=== PATIENT | male | born 1960 | race Caucasian/White ===

== ENCOUNTER 2025-04-26 14:40 | Emergency (ER) | payer OTHER, SELFPAY ==
[2025-04-26 14:41] VITALS: BP 117/70; PULSE 77; RESP 16; TEMP 36.3; O2SAT 100; BMI 29.2
[2025-04-26] MEDS: 0.9% Normal Saline (1000mL) 1,000 ML 999 ML IV (16:14)
[2025-04-26 16:21] LABS: Hematocrit 36.3 % (40-54); Hemoglobin 12.7 g/dL (13.0-16.5); Immature Granulocytes Count 0.030 X10^3/uL (0.0-0.0); Mean Corp Hgb Conc 35.0 g/dL (32-36); Mean Corpuscular Volume 91.7 fL (80-94); Mean Platelet Vol. 9.8 fl (6.2-12.0); NRBC Flagged by Analyzer 0 % (0-5); Platelet Count 156 K/mm3 (150-450); RBC Distribution Width CV 12.0 % (11.6-14.6); RBC Distribution Width SD 40.4 fl (35.1-43.9); Red Blood Count 3.96 M/mm3 (4.6-6.2); White Blood Count 7.8 K/mm3 (4.4-11.0)
--- NOTE | 2025-04-26 16:21 | RAD_ITS ---
PROCEDURE: CHEST PA AND LATERAL 04/26/2025 REASON FOR EXAM: SOB TECHNIQUE: CHEST PA AND LATERAL COMPARISON: None. FINDINGS: Devices: Left chest wall multilead ICD, appears appropriately positioned. Lungs/Pleura: Mild pulmonary vascular congestion and evidence of interstitial edema. No pleural effusion. No focal airspace consolidation. No pneumothorax. Heart/Mediastinum: Mild cardiomegaly. Calcification of the aortic arch. Bones/Soft tissues: Mild degenerative changes of the spine and bilateral AC joints. RAD/Chest PA and Lateral IMPRESSION: Mild cardiomegaly with vascular congestion and probable interstitial edema. No focal airspace consolidation, or pleural effusion. Reading Location: [id number]
[2025-04-26 16:25] LABS: Squamous Epithelial Cells - UA 0 SEEN /hpf (0-5)
--- NOTE | 2025-04-26 16:26 | EX.ED.DYSGE1 ---
HPI History of Present Illness Chief Complaint: General Illness Narrative Narrative: Patient is a 64-year-old male with past medical history of CAD, CHF, recent pacemaker placement in May, cardiomyopathy, hypertension who presents to the emergency department with a chief complaint of generalized weakness, shortness of breath with exertion, abdominal pain and diarrhea. Patient states that he has not been feeling well for the last several days and notes that he is getting worsening shortness of breath with exertion. Patient family bedside states they wanted him further evaluated since he was seem to be worsening. [facility] Medical History H pylori ulcer Rectal polyp Rectal bleeding GERD (gastroesophageal reflux disease) HTN (hypertension) Hypertriglyceridemia Hernia CAD (coronary atherosclerotic disease) Palpitation Cardiomyopathy LBBB (left bundle branch block) Pacemaker Home Medications ?Medication ?Instructions ?Recorded ?Last Taken ?Type ondansetron 4 mg disintegrating 4 mg PO Q6H PRN nausea and 04/26/25 Unknown Rx tablet vomiting #20 tabs Allergy/AdvReac Type Severity Reaction Status Date / Time No Known Allergies Allergy Verified 04/26/25 14:43 Surgical History Previous back surgery Social History Smoking Status: Never smoker ROS ROS ED ROS Narrative Constitutional: Denies any fevers, chills, headaches Eyes: Denies double vision Cardiovascular: Denies chest pain Respiratory: Complains of shortness of breath as noted above as well as a cough Abdomen: Complains of abdominal pain nausea vomiting as noted above as well as diarrhea denies dark tarry stools : Denies any urinary symptoms Neurological: Denies numbness, wheeze, tingling Musculoskeletal: Denies back pain Skin: Denies any rashes or lesions EXAM Physical Exam Narrative Exam Narrative: General: Patient was lying in bed rest comfortably did not appear to be acute distress Head: Atraumatic, normocephalic Eyes: PERRL bilaterally, EOMI by, no conjunctival injection noted Neck: Soft, supple, trachea midline Cardiovascular: Regular rate and rhythm no murmurs gallops rubs noted Respiratory: Clear to auscultation bilaterally Abdomen: Patient does have epigastric tenderness on exam no rebound or guarding on exam Extremities: +5/5 strength noted in the bilateral upper and lower extremities Neurological: Patient follow commands knew that he was at [facility] years 2024 Skin: Warm, dry, intact no rashes lesions noted Const Vital Signs: 04/26/25 14:41 04/26/25 15:50 04/26/25 16:20 Temperature 97.4 F L Temperature Source Oral Pulse Rate 77 Respiratory Rate 16 Respiratory Effort Short of Breath Blood Pressure 117/70 Blood Pressure Mean 85 Pulse Ox 100 Oxygen Delivery Method Room Air Room Air 04/26/25 16:40 04/26/25 18:00 04/26/25 20:00 Temperature Temperature Source Pulse Rate 67 63 64 Respiratory Rate 18 16 19 H Respiratory Effort Blood Pressure 119/69 Blood Pressure Mean 85 Pulse Ox 99 99 100 Oxygen Delivery Method Room Air Room Air MDM MDM MDM Narrative Medical decision making narrative: Patient is a 64-year-old male who presented to the emerged part with a chief complaint of dyspnea on exertion, abdominal pain nausea vomiting. On the differential diagnosis includes but not limited to CHF exacerbation, ACS, pneumonia, pancreatitis, cholecystitis, viral gastroenteritis. Once workup is obtained reviewed he will be reevaluated. Patient be given IV fluids morphine Zofran. Nursing notified me that he did refuse his morphine. Patient's CBC was reviewed and showed no evidence leukocytosis white blood count was 7.8, he was 12.7, platelet count of 156. Patient's sodium was 135, potassium normal 4.4, creatinine was elevated 1.35, AST and ALT were 27 and 35 respectively. Patient's troponin was 12 with a delta troponin of 11, EKG reviewed showed atrial sensed ventricular paced rhythm with a rate of 60 bpm no Sgarbossa criteria were met. Patient's proBNP normal less than 36, lipase normal at 47, urinalysis reviewed showed no evidence of infection. Patient chest x-ray reviewed by myself by radiology showed mild cardiomegaly with vascular congestion and probable interstitial edema no consolidation or pleural effusion noted. Patient CT abdomen pelvis IV contrast reviewed showed sigmoid colon wall thickening without significant adjacent inflammatory changes equivocal for acute uncomplicated sigmoid diverticulitis patient has no tenderness to palpation in this region therefore have low suspicion for this, borderline gastric wall thickening which may be due to underdistention or gastritis. Patient ambulated here in the emergency department had no tachycardia his oxygen level went down to 91% and he felt mildly short of breath. I added on a D-dimer which was reviewed and is normal at 0.33. I discussed these results with the patient and his daughter at bedside. With shared decision making it was decided that we will give him a dose of IV Lasix here in the emergency department and he will double his home Lasix dose. He does have an appointment on Wednesday with the heart failure clinic that he will follow-up with he states. He states that he is currently try to follow-up with Dr. Kenyon in the outpatient setting for repeat endoscopies as he does have a history of H. pylori in the past. Patient was hungry here in the emergency department and he did eat [employer] without any vomiting. Once again the patient with shared decision making would like to go home and his daughter at bedside is agreeable this plan all question concerns answered he is discharged home in stable condition. Lab Data Labs: Laboratory Results - last 24 hr 04/26/25 04/26/25 04/26/25 16:03 16:18 18:40 WBC 7.8 RBC 3.96 L Hgb 12.7 L Hct 36.3 L MCV 91.7 MCH 32.1 H MCHC 35.0 RDW Std Deviation 40.4 RDW Coeff of Roshni 12.0 Plt Count 156 MPV 9.8 Immature Gran % (Auto) 0.400 Neut % (Auto) 58.4 Lymph % (Auto) 27.4 Drew % (Auto) 9.9 Eos % (Auto) 2.5 Baso % (Auto) 1.4 H Absolute Neuts (auto) 4.5 Absolute Lymphs (auto) 2.12 Nucleated RBC % 0 D-Dimer Quant (PE/DVT) Sodium 135 Potassium 4.4 Chloride 102 Carbon Dioxide 21.8 Anion Gap 12 BUN 27 H Creatinine 1.35 H Estim Creat Clear Calc 60.52 Est GFR (MDRD) Non-Af 58 L BUN/Creatinine Ratio 19.6 Glucose 102 H Calcium 9.5 Total Bilirubin 0.43 AST 27 ALT 35 Alkaline Phosphatase 46 Troponin T High Sens 12 Troponin T Hi Sens 2 Hr 11 NT pro BNP II < 36 Total Protein 7.3 Albumin 4.3 Globulin 3.0 Albumin/Globulin Ratio 1.4 Lipase 47 Urine Color Yellow Urine Clarity Clear Urine pH 6.0 Ur Specific [place] 1.015 Urine Protein 30 H Urine Glucose (UA) Normal Urine Ketones Negative Urine Occult Blood Negative Urine Nitrite Negative Urine Bilirubin Negative Urine Urobilinogen 1 H Ur Leukocyte Esterase Negative Urine RBC 0-5 SEEN Urine WBC 0-5 SEEN Ur Squamous Epith Cells 0 SEEN Urine Bacteria 0 SEEN Urine Mucus RARE 04/26/25 19:55 WBC RBC Hgb Hct MCV MCH MCHC RDW Std Deviation RDW Coeff of [place] Plt Count MPV Immature Gran % (Auto) Neut % (Auto) Lymph % (Auto) Drew % (Auto) Eos % (Auto) Baso % (Auto) Absolute Neuts (auto) Absolute Lymphs (auto) Nucleated RBC % D-Dimer Quant (PE/DVT) 0.33 Sodium Potassium Chloride Carbon Dioxide Anion Gap BUN Creatinine Estim Creat Clear Calc Est GFR (MDRD) Non-Af BUN/Creatinine Ratio Glucose Calcium Total Bilirubin AST ALT Alkaline Phosphatase Troponin T High Sens Troponin T Hi Sens 2 Hr NT pro BNP II Total Protein Albumin Globulin Albumin/Globulin Ratio Lipase Urine Color Urine Clarity Urine pH Ur Specific [place] Urine Protein Urine Glucose (UA) Urine Ketones Urine Occult Blood Urine Nitrite Urine Bilirubin Urine Urobilinogen Ur Leukocyte Esterase Urine RBC Urine WBC Ur Squamous Epith Cells Urine Bacteria Urine Mucus Radiography Diagnostic Testing: Clinical Impression(s) from Imaging Studies Chest X-Ray 04/26/25 16:21 IMPRESSION: Mild cardiomegaly with vascular congestion and probable interstitial edema. No focal airspace consolidation, or pleural effusion. Reading Location: [facility] Abdomen/Pelvis CT 04/26/25 17:30 IMPRESSION: Sigmoid colon wall thickening without significant adjacent inflammatory changes equivocal for acute uncomplicated sigmoid diverticulitis. Borderline gastric wall thickening which may be due to underdistention or gastritis. Reading Location: [id number] Discharge Plan Triage Chief Complaint: General Illness ED Provider: iRgo Haile Dx/Rx/DC Orders Clinical Impression: Abdominal pain, History of CHF (congestive heart failure), History of Helicobacter pylori infection Prescriptions: New ondansetron 4 mg tablet,disintegrating 4 mg PO Q6H PRN (Reason: nausea and vomiting) Qty: 20 0RF Primary Care Provider: Care Physician,No Primary Referrals: Care Physician,No Primary [Primary Care Provider] - Aneudy Kenyon MD [Med Staff - Active Staff] - Activity Restrictions/Additional Instructions: Follow-up your appointment on Wednesday with the heart failure team increase your Lasix dose for the next few days. Return with worsening symptoms or any concerns. Use the Zofran as sent to your pharmacy as prescribed for nausea as needed. Print Language: Monegasque Disposition Disposition: Home, Self Care
[2025-04-26 16:35] LABS: Color, Urine Yellow (Yellow); Glucose, Dipstick Normal (Normal); Ketone-Dipstick Negative (Negative); Leukocyte Esterase-Dipstick Negative /ul (Negative); Nitrite-Dipstick Negative (Negative); Occult Blood-Urine Negative /ul (Negative); Protein-Dipstick 30 mg/dl (Negative); Specific Gravity, Urine 1.015 (1.002-1.030); Urine Bilirubin Dipstick Negative (Negative)
[2025-04-26 16:40] VITALS: PULSE 67; RESP 18; O2SAT 99
[2025-04-26 17:16] LABS: AST(SGOT) 27 U/L (<=37); Alanine Aminotransfer ALT/SGPT 35 U/L (<=46); Albumin, Serum 4.3 g/dL (3.4-4.8); Alkaline Phosphatase 46 U/L (40-129); Anion Gap 12 (5-15); BUN 27 mg/dL (4-19); BUN/Creat Ratio 19.6 RATIO (10-20); Calcium,Total 9.5 mg/dL (7.6-11.0); Carbon Dioxide 21.8 mmol/L (21.0-32.0); Chloride 102 mmol/L (98-108); Estimated Creatinine Clearance 60.52 ml/min (50-250); Globulin 3.0 g/dL (2.2-4.2); Glucose 102 mg/dL (70-99); Lipase 47 U/L (13-75); Potassium 4.4 mmol/L (3.3-5.1)
[2025-04-26 17:16] LABS: Mucous, Urine RARE /hpf (<or=2+); Red Blood Cells-Urine 0-5 SEEN /hpf (0-5)
--- NOTE | 2025-04-26 17:30 | CT_ITS ---
PROCEDURE: ABDOMEN/PELVIS W IV CONT ONLY 04/26/2025 REASON FOR EXAM: EPIGASTRIC PAIN, N/V TECHNIQUE: ABDOMEN/PELVIS W IV CONT ONLY Coronal and Sagittal reconstruction series were provided. CONTRAST: Isovue 370 VOLUME: 92 mL One or more dose reduction techniques were used (e.g., Automated exposure control, adjustment of the mA and/or kV according to patient size, use of iterative reconstruction technique. RADIATION DOSE SUMMARY: CTDlvol: 13.30+ 20.66 mGy DLP: 1157.52 mGycm COMPARISON: None. FINDINGS: The lung bases are clear. Coronary artery calcifications. The peripheral soft tissues are unremarkable. Degenerative changes of the spine. Moderate atherosclerosis. Normal caliber abdominal aorta. No suspicious lymphadenopathy. Hepatic subcentimeter hypodense lesions that are too small to characterize. The gallbladder, pancreas, spleen, adrenals are unremarkable. Symmetric enhancement of the bilateral kidneys. No hydroureteronephrosis. The urinary bladder is unremarkable. Borderline sigmoid colon wall thickening without adjacent inflammatory changes. Equivocal for acute uncomplicated diverticulitis. Borderline gastric wall thickening which may be due to underdistention or gastritis. CT/Abdomen/Pelvis W IV Cont ONLY IMPRESSION: Sigmoid colon wall thickening without significant adjacent inflammatory changes equivocal for acute uncomplicated sigmoid diverticulitis. Borderline gastric wall thickening which may be due to underdistention or gastr itis. Reading Location: [place] [id number]
[2025-04-26 17:43] LABS: Pro- Brain NATRIURETIC PEPTIDE < 36 pg/mL (<=900); Troponin T High Sensitivity 12 ng/L (<=22)
[2025-04-26 17:50] VITALS: O2SAT 98
[2025-04-26 18:00] VITALS: BP 119/69; PULSE 63; RESP 16; O2SAT 99
[2025-04-26 19:25] LABS: Troponin T High Sens 2 HR 11 ng/L (<=22)
[2025-04-26 20:00] VITALS: PULSE 64; RESP 19; O2SAT 100
[2025-04-26 20:32] LABS: D-Dimer Quantitative (DVT/PE) 0.33 FEU/ug/m (0.27-0.49)
[2025-04-26 21:41] VITALS: BP 122/71; PULSE 71; RESP 18; TEMP 36.8; O2SAT 99
== END 2025-04-26 21:44 | disposition home or self-care (01) ==
PROVIDERS: Emergency Provider Emergency Medicine; Referring Provider Emergency Medicine; Visit Provider Emergency Medicine
DX: R10.9 Unspecified abdominal pain (principal); R06.02 Shortness of breath; Z95.0 Presence of cardiac pacemaker; R11.2 Nausea with vomiting, unspecified; Z86.79 Personal history of other diseases of the circulatory system; Z86.19 Personal history of other infectious and parasitic diseases
CPT/HCPCS: 71046; 74177; 80053; 81001; 83690; 83880; 84484; 85025; 85379; 93005; 96361; 96374; 99284; Q9967; A4216; J1938; J2405

== ENCOUNTER 2025-05-25 07:47 | Day surgery (SDC) | payer MEDICARE, SELFPAY ==
--- NOTE | 2025-05-23 14:41 | PAT.ANE_ITS ---
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 When Was Last Pacemaker Check QUESTION #4 FULL TEXT: You/Your Family Experience fever (hyperthermia) with Anesthesia Last Oral Intake Last Oral intake: Last Oral Intake NPO since Meds taken in AM with sips of water? Meds patient instructed to take am of surgery PONV PONV - foreign exchange trader: PONV - foreign exchange trader Female No 05/23/25 11:01 HX of Motion Sickness No 05/23/25 11:01 HX of N/V After Surgery No 05/23/25 11:01 Non-Smoker Yes 05/23/25 11:01 Duration of Surgery greater No 05/23/25 11:01 than 60 minutes Number of Risk Factors 1 05/23/25 11:01 PONV Score Low Risk 05/23/25 11:01 Height & Weight Height & Weight: Anesthesia: Height & Weight Height 5 ft 9 in 04/30/25 08:43 Respiratory Assessment Respiratory Assessment - foreign exchange trader: Respiratory Tract Infection Hx - foreign exchange trader Hx Respiratory Tract Infection No 05/23/25 11:01 STOP Sleep Apnea STOP Sleep Apnea - foreign exchange trader: STOP Sleep Apnea - foreign exchange trader Hx Hypertension Yes 05/23/25 11:01 Hx Sleep Apnea No 05/23/25 11:01 CPAP BIPAP Do you snore loudly (louder No 05/23/25 11:01 than talking or can be heard Do you often feel tired/ No 05/23/25 11:01 fatigued/ sleepy during daytime? Has anyone observed you stop No 05/23/25 11:01 breathing during sleep? STOP Results Negative 05/23/25 11:01 QUESTION #5 FULL TEXT : Do you snore loudly (louder than talking or can be heard through closed doors)? Tobacco Use History Tobacco Use History - foreign exchange trader: Tobacco Use History - foreign exchange trader Tobacco Use Smoking Status Former smoker 05/23/25 11:01 Hx Tobacco Use Yes 05/23/25 11:01 Years Smoking Packs Smoked per Day Smoking Cessation Date was No - quit smoking greater 05/23/25 11:01 within the last 15 years than 15 years ago Hx Smoking Cessation Date Hx Smoking Cessation Counseling Hematologic Medial History Hematologic Hx - foreign exchange trader: Hematologic Medical Hx - resolution expert Hx of Blood Transfusion No 05/23/25 11:01 Hx of Transfusion in last 3 No 05/23/25 11:01 Months Date of Last Transfusion (if within last 3 months) Ever experience any problems No 05/23/25 11:01 with transfusion(s)? Specify any problems Hx of Preganancy in last 3 N/A 05/23/25 11:01 Months Nurse Filling Out Transfusion VLEHMAN 05/23/25 11:01 & Questions: Date: 05/23/25 05/23/25 11:01 Time: 11:07 05/23/25 11:01 Patient unable to answer at this time (ie. confused, unrespo /Reproduction History /Reproductive History - foreign exchange trader: /Reproductive Hx- foreign exchange trader Hx Now No 05/23/25 11:01 Gestational Age (in weeks): EDC: Hx Hx Para Hx Section SAB No 05/23/25 11:01 [facility] Medical History (Updated 05/23/25 @ 11:06 by Yoselyn Rodriguez) Arthritis High cholesterol Migraine headache Gastric reflux Former smoker Shortness of breath on exertion History of pacemaker History of echocardiogram Cardiology follow-up encounter H pylori ulcer Rectal polyp Rectal bleeding GERD (gastroesophageal reflux disease) HTN (hypertension) Hypertriglyceridemia Hernia CAD (coronary atherosclerotic disease) Palpitation Cardiomyopathy LBBB (left bundle branch block) Pacemaker Home Medications ?Medication ?Instructions ?Recorded ?Last Taken ?Type ondansetron 4 mg disintegrating 4 mg PO Q6H PRN nausea and 04/26/25 Unknown Rx tablet vomiting #20 tabs aspirin 81 mg tablet 81 mg PO QDAY 04/30/25 Unkno wn History carvedilol 12.5 mg tablet 12.5 mg PO BID 04/30/25 Unkn own History esomeprazole magnesium 40 mg 40 mg PO QDAY 04/30/25 Un known History capsule,delayed release furosemide 40 mg tablet 40 mg PO QDAY 04/30/25 Unkno wn History lisinopril 20 mg tablet 20 mg PO BID 04/30/25 Unknow n History spironolactone 25 mg tablet 25 mg PO DAILY 04/30/25 Un known History rosuvastatin 20 mg tablet 20 mg PO QHS 05/23/25 Unknow n History Allergy/AdvReac Type Severity Reaction Status Date / Time No Known Allergies Allergy Verified 05/23/25 10:57 Surgical History (Updated 05/23/25 @ 11:06 by Yoselyn Rodriguez) History of implantable cardiac defibrillator (ICD) S/P cardiac pacemaker procedure S/P carpal tunnel release Previous back surgery Social History (Updated 04/30/25 @ 08:43 by Amber Akers) Smoking Status: Former smoker alcohol intake: never Audit: Pertinent Findings Pertinent Findings EKG Perinent findings: 04/26/2025. Atrial sensed ventricular paced rhythm. 60 bpm. Echo (EF%) pertinent findings: 01/16/2025. EF 32% ?5%. EF has decreased since echo on 06/12/2021. Consult pertinent findings: Cardiology. 02/22/2025. Dilated cardiomyopathy. EF 30 to 35%. Patient will go to heart failure clinic. Adjust medications and recheck in several months. Chronic left bundle branch block. Status post AICD. No ICD firings noticed. Hypertension well-controlled. Recommendation Anesthesia Recommendation Anesthesia recommendation: OPTIMIZED for anesthesia
[2025-05-25] VITALS (9 sets, daily range): BP systolic 79–145; BP diastolic 59–81; PULSE 59–71; RESP 14–16; TEMP 36.1–36.7; O2SAT 90–99; BMI 30.4
[2025-05-25] MEDS: Lactated Ringers 1,000 ML 15 ML IV (08:14)
--- NOTE | 2025-05-25 08:43 | PCM.HP.BLA ---
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 Is patient in pain?: Yes (epigastric area ) Pain scale (1-10): 3 Allergies No Known Allergies Allergy (Verified 04/30/25 08:44) Medications ?Medication ?Instructions ?Recorded ?Confirmed ?Type ondansetron 4 mg disintegrating 4 mg PO Q6H PRN nausea and 04/26/25 Rx tablet vomiting #20 tabs aspirin 81 mg tablet 81 mg PO QDAY 04/30/25 04/30/25 History atorvastatin 20 mg tablet 20 mg PO QDAY 04/30/25 04/30/25 History carvedilol 12.5 mg tablet 12.5 mg PO BID 04/30/25 04/30/25 History esomeprazole magnesium 40 mg 40 mg PO QDAY 04/30/25 04/30/25 History capsule,delayed release furosemide 40 mg tablet 40 mg PO QDAY 04/30/25 04/30/25 History lisinopril 20 mg tablet 20 mg PO BID 04/30/25 04/30/25 History spironolactone 25 mg tablet mg PO 04/30/25 04/30/25 History tadalafil 20 mg tablet (Cialis) 20 mg PO QDAY PRN 04/30/25 04/30/25 History Have you fallen in the past year?: No PFSH Medical History H pylori ulcer Rectal polyp Rectal bleeding GERD (gastroesophageal reflux disease) HTN (hypertension) Hypertriglyceridemia Hernia CAD (coronary atherosclerotic disease) Palpitation Cardiomyopathy LBBB (left bundle branch block) Pacemaker Surgical History S/P cardiac pacemaker procedure S/P carpal tunnel release Previous back surgery Social History (Updated 04/30/25 @ 08:43 by Amber Akers) Smoking Status: Former smoker alcohol intake: never HPI HPI HPI: Patient is a 64-year-old male here with epigastric pain. The patient reports that he has been having weight gain despite not eating. He has a history of H. pylori. Patient feels like his H. pylori is back again. Patient had a recent EGD and colonoscopy in November. He reports that he was feeling a lot of bloating after eating and having a lot of gas. He is already on Nexium ROS General General: Yes weight change and fatigue; No appetite, colon cancer, breast cancer or weakness HEENT HEENT: Yes difficulty swallowing; No eye injury, eye surgery, swollen glands or hoarseness Endo Endocrine: No thyroid disease, diabetes mellitus, thyroid cancer, Hair loss, heat intolerance or cold intolerance Skin Skin: No rash or changing moles Breast Breast: No left breast lump, right breast lump, nipple discharge, breast pain, abnormal mammogram, abnormal US or breast enlargement Musc Musculoskeletal: Yes back problems and arthritis; No rheumatoid arthritis, gout or joint pain Cardio Cardiovascular: Yes pacemaker, heart disease, atrial fibrillation and high blood pressure; No murmur, heart attack, heart stent, palpitations, shortness of breath with exertion or chest pain Psych Psychiatric: No depression, anxiety or hearing voices Resp Respiratory: Yes shortness of breath, Yes sleep apnea, Yes cough, No COPD, No asthma, No emphysema and No wheezing Gastro Gastrointestinal: Yes abdominal pain, No nausea or vomiting, Yes diarrhea, Yes constipation, Yes blood in stool, Yes acid reflux, No hemorrhoids, No ulcers, No gallbladder problem and No black,tarry stools Rigoberto Hematologic: No blood thinners, No blood disorders, No bleeding, No anemia and No blood clots Neuro Neurologic: No system reviewed and no additional complaints, except as documented, No as per HPI, No abnormal gait, No abnormal hearing, No abnormal movements, No abnormal speech, No behavioral changes, No burning sensations, No confusion, No convulsions, No disequilibrium, No dizziness, No localized weakness, No frequent falls, No headache(s), No lack of coordination, No loss of vision, No memory loss, No numbness, No other visual disturbances, No radicular pain, No restless legs, No sensory deficit, No syncope, No tingling, No tremor(s), No weakness and No other Exam Const General: cooperative Orientation: alert and oriented x3 HENMT Head: normal to inspection Neck Neck: normal visual inspection and full ROM Chest Chest palpation & inspection: normal inspection of the chest Resp Effort & Inspection: normal respiratory effort Auscultation: clear to auscultation bilaterally Cardio Rate: regular rate Rhythm: regular rhythm GI Inspection: non-distended Palpation: soft and nontender Skin General: no rashes or lesions noted Neuro General: patient alert and patient oriented x3 Extrem General: full ROM Psych Appearance: grossly normal Mental Status: mental status grossly normal Assessment and Plan Assessment and Plan (1) History of Helicobacter pylori infection: Status: Acute (2) Abdominal pain: Status: Acute Qualifiers: Abdominal location: epigastric Qualified Code(s): R10.13 - Epigastric pain Orders: Orders EGD Today Plan Patient have a history of H. pylori and he believes it is back. I discussed performing EGD with biopsies and evaluate the stomach for any ulceration. I explained endoscopy in detail to the patient. I explained the risks including but not limited to stroke or heart attack with anesthesia, perforation of the GI tract, bleeding, infection. I explained that any of these could necessitate further emergency surgery. The patient understands and all questions were answered sufficiently. The patient wishes to proceed with procedure. Aneudy Kenyon MD Pager: [facility] [address] [place] [address], [address] [place] [address] Office: I have examined the patient and the H&P has been reviewed. There are no clinical changes since date of exam.
--- NOTE | 2025-05-25 08:50 | PCM.PRE.AN2 ---
ASA Classification* ASA Classification ASA Classification: 3 Assessment & Plan Anesthesia* Anesthesia Assessment Anesthesia Assessment: Discussed sedation and/or anesthesia options, risks, benefits, and alternatives with patient/parents/legal guardian/POA. Questions invited. The patient/parents/legal guardian/POA seems to understand and agrees to proceed with anesthesia plan. Reviewed the physical assessment, medical history, allergy history and patient home medications list prior to surgery/procedure/anesthetic and documented any changes. Performed airway and anesthesia risk assessments. Anesthesia Type Anesthesia Type: MAC History Source History Obtained from:: Patient and Chart Anesthesia Focused Assessment* Temperature: 96.9 F Pulse Rate: 61 Blood Pressure: 145/81 Respiratory Rate: 16 Pulse Ox: 99 Oxygen Delivery Method: Room Air Airway Assessment Mouth opens: >3 cm Mallampati Score: III Teeth Condition: Missing (missing tops and bottoms, multiple teeth. ) Neck Range of motion (ROM): Full ROM Labs Anesthesia Preop lab: CBC WBC 7.8 K/mm3 (4.4-11.0) 04/26/25 16:04/26/25 RBC 3.96 M/mm3 (4.6-6.2) L 04/26/25 16:04/26/25 Hgb 12.7 g/dL (13.0-16.5) L 04/26/25 16:03 04/26/25 Hct 36.3 % (40-54) L 04/26/25 16:03 04/26/25 Plt Count 156 K/mm3 (150-450) 04/26/25 16:03 04/26/25 CHEMISTRY Potassium 4.4 mmol/L (3.3-5.1) 04/26/25 16:04/26/25 Sodium 135 mmol/L (133-145) 04/26/25 16:04/26/25 BUN 27 mg/dL (4-19) H 04/26/25 16:03 04/26/25 Creatinine 1.35 mg/dL (0.70-1.20) H 04/26/25 16:03 04/26/25 Glucose 102 mg/dL (70-99) H 04/26/25 16:03 04/26/25 COAG Pre-Assessment Diagnosis/Proposed Procedure Planned Operative Procedure(s): EGD Anesthesia History Anesthesia History - health analytics consultant: Anesthesia History - health analytics consultant Hx Hospitalization No 05/23/25 11:01 Any Problems With Anesthesia No 05/23/25 11:01 Cholinesterase deficiency No 05/23/25 11:01 You/Your Family Experience No 05/23/25 11:01 fever (hyperthermia) with Relationship Recent Exposure to Contagious No 05/25/25 08:11 Disease Does patient have nerve No 05/23/25 11:01 stimulator Patient instructed to have device shut off --Does patient have Pacemaker Yes 05/25/25 08:11 or ICD? When Was Last Pacemaker Check QUESTION #4 FULL TEXT: You/Your Family Experience fever (hyperthermia) with Anesthesia Any additional information?: Yes Any Problems With Anesthesia: No Cholinesterase deficiency: No You/your family experience fever (hyperthermia) with anesthesia: No --Does patient have Pacemaker or ICD?: Yes When Was Last Pacemaker Check: Defibrillator never fired Last Oral Intake Last Oral intake: Last Oral Intake NPO since 21:00 05/25/25 08:11 Meds taken in AM with sips of No 05/25/25 08:11 water? Meds patient instructed to take am of surgery Any additional information?: No PONV PONV - health analytics consultant: PONV - health analytics consultant Female No 05/23/25 11:01 HX of Motion Sickness No 05/23/25 11:01 HX of N/V After Surgery No 05/23/25 11:01 Non-Smoker Yes 05/23/25 11:01 Duration of Surgery greater No 05/23/25 11:01 than 60 minutes Number of Risk Factors 1 05/23/25 11:01 PONV Score Low Risk 05/23/25 11:01 Any additional information?: No Height & Weight Height & Weight: Anesthesia: Height & Weight Height 5 ft 8 in 05/25/25 08:11 Weight: 91 kg 05/25/25 08:11 Body Mass Index (BMI) 30.4 05/25/25 08:11 Respiratory Assessment Respiratory Assessment - health analytics consultant: Respiratory Tract Infection Hx - health analytics consultant Hx Respiratory Tract Infection No 05/23/25 11:01 Any additional information?: No STOP Sleep Apnea STOP Sleep Apnea - health analytics consultant: STOP Sleep Apnea - health analytics consultant Hx Hypertension Yes 05/23/25 11:01 Hx Sleep Apnea No 05/23/25 11:01 CPAP BIPAP Do you snore loudly (louder No 05/23/25 11:01 than talking or can be heard Do you often feel tired/ No 05/23/25 11:01 fatigued/ sleepy during daytime? Has anyone observed you stop No 05/23/25 11:01 breathing during sleep? STOP Results Negative 05/23/25 11:01 QUESTION #5 FULL TEXT : Do you snore loudly (louder than talking or can be heard through closed doors)? 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 Specify any problems Hx of Preganancy in last 3 N/A 05/23/25 11:01 Months Nurse Filling Out Transfusion [facility] 05/23/25 11:01 & Questions: Date: 05/23/25 05/23/25 11:01 Time: 11:05/23/25 11:01 Patient unable to answer at this time (ie. confused, unrespo Any additional information?: No /Reproduction History /Reproductive History - health analytics consultant: /Reproductive Hx- health analytics consultant Hx Now No 05/23/25 11:01 Gestational Age (in weeks): EDC: Hx Hx Para Hx Section SAB No 05/23/25 11:01 Any additional information?: No Active Medications Active Medications: Current Medications Generic Name Dose Route Start Last Admin Trade Name Freq PRN Reason Stop Dose Admin Lactated Ringer's 1,000 mls @ 15 mls/hr 05/25/25 08:00 05/25/25 08:14 IV 15 mls/hr .Q48H IVON Administration PFSH Medical History (Updated 05/23/25 @ 11:06 by Yoselyn Rodriguez) Arthritis High cholesterol Migraine headache Gastric reflux Former smoker Shortness of breath on exertion History of pacemaker History of echocardiogram Cardiology follow-up encounter H pylori ulcer Rectal polyp Rectal bleeding GERD (gastroesophageal reflux disease) HTN (hypertension) Hypertriglyceridemia Hernia CAD (coronary atherosclerotic disease) Palpitation Cardiomyopathy LBBB (left bundle branch block) Pacemaker Home Medications ?Medication ?Instructions ?Recorded ?Last Taken ?Type ondansetron 4 mg disintegrating 4 mg PO Q6H PRN nausea and 04/26/25 Unknown Rx tablet vomiting #20 tabs aspirin 81 mg tablet 81 mg PO QDAY 04/30/25 Unknown History carvedilol 12.5 mg tablet 12.5 mg PO BID 04/30/25 Unknown History esomeprazole magnesium 40 mg 40 mg PO QDAY 04/30/25 Unknown History capsule,delayed release furosemide 40 mg tablet 40 mg PO QDAY 04/30/25 Unknown History lisinopril 20 mg tablet 20 mg PO BID 04/30/25 Unknown History spironolactone 25 mg tablet 25 mg PO DAILY 04/30/25 Unknown History rosuvastatin 20 mg tablet 20 mg PO QHS 05/23/25 Unknown History Allergy/AdvReac Type Severity Reaction Status Date / Time No Known Allergies Allergy Verified 05/25/25 08:10 Surgical History (Updated 05/23/25 @ 11:06 by Yoselyn Rodriguez) History of implantable cardiac defibrillator (ICD) S/P cardiac pacemaker procedure S/P carpal tunnel release Previous back surgery Social History (Updated 04/30/25 @ 08:43 by Amber Akers) Smoking Status: Former smoker alcohol intake: never Review of Systems (Anesthesia) ROS Narrative System reviewed and no additional complaints, except as documented.
--- NOTE | 2025-05-25 09:00 | EGD_PTH ---
PATIENT: SHASHI BUCHANAN LOC: EN U#:[id number] AGE/SX: 65/M ROOM: RE05/25/[address]: Dr. Aneudy Kenyon MD : 1960 BED: DIS: 05/25/2025 SPEC #: [id number] RECD: 05/25/25 10:06 STATUS: IRIS CLARA #: [id number] RONALD: 05/25/25 09:[address]: Aneudy Kenyon DEPT: SURGICAL PATHOLOGY RECD BY: Dewey Angeles ENTERED: 05/25/25 11:15 SP TYPE: EGD BIOPSY OTHR DR: No Primary Care Phys Tissues: A - Gastric mucous membrane B - Esophagus, NOS Procedures: Immunohistochemical Stains Surgery Specimen Level IV HEADER OPERATION: EGD with biopsies PRE-OP DIAGNOSIS: History of Helicobacter pylori infection TISSUE SUBMITTED: A- Antrum biopsy, B- GE junction biopsy MICROSCOPIC DIAGNOSIS A. Antrum, biopsy: Chronic gastritis with features of reactive gastropathy. IHC negative for Helicobacter pylori organisms. B. GE junction, biopsy: Squamocolumnar mucosa negative for goblet cell metaplasia. Negative for dysplasia. MICROSCOPIC DESCRIPTION Slides are reviewed. All matched controls reacted appropriately. These tests were developed and their performance characteristics determined by [facility]. They may not have been cleared or approved by the U.[place]. Food and Drug Administration. The FDA has determined that such clearance or approval is not necessary. The above immunohistochemical/dualISH markers are viewed by the Pathologist. GROSS DESCRIPTION A. Received in fixative is one container labeled with the patient's name and designated Antrum biopsy. The specimen consists of four irregular fragments of light coates soft tissue that measure 0.3 to 0.6 cm. The specimen is totally submitted in one cassette. B. Received in fixative is one container labeled with the patient's name and designated GE junction biopsy. The specimen consists of one irregular fragment of light coates soft tissue that measures 0.5 cm. The specimen is totally submitted in one cassette. [place] 05/25/2025 CPT:[id number]
--- NOTE | 2025-05-25 09:10 | PCM.POST.ANE ---
Anesthesia: Postop Eval I Current Vital Signs Temperature: 98 F Pulse Rate: 71 Blood Pressure: 102/70 Respiratory Rate: 14 Pulse Ox: 92 Oxygen Delivery Method: Room Air Assessment Airway patent: Yes Spontaneous unlabored respirations: Yes Mental status: Awake and Calm nausea: No Vomiting: No Anesthesia Complication: No Fluid Hydration Crystalloid volume administer (ml): 300 Total IV fluid infused: 300 Progress Note Anesthesia document: Postop Eval 1 completed: Yes
--- NOTE | 2025-05-25 09:12 | OP.PROVAT_ITS ---
05/25/2025 No Primary Care Physician Re : Upper GI endoscopy procedure for Vincent Madden Dear Care Physician This procedure was performed on Sunday, May 25, 2025. My impressions and recommendations are as follows: Impressions : - Normal esophagus. - Normal stomach. - Normal examined duodenum. - Biopsies were taken with a cold forceps for Helicobacter pylori testing. Recommendations : - Discharge patient to home. - Resume previous diet. - Continue present medications. - Await pathology results. My findings are described in the full procedure note, which is enclosed. If I can be of further assistance, please feel free to contact me at Doctor phone number(s): , Work: . Sincerely, Aneudy Kenyon MD 05/25/2025 9:11:32 AM This report has been signed electronically.
--- NOTE | 2025-05-25 09:12 | OP.EGD_ITS ---
Patient Name: Vincent Madden Procedure Date: 05/25/2025 8:49 AM Date of : 1960 Age: 65 Procedure: Upper GI endoscopy Indications: Epigastric abdominal pain Providers: Aneudy Kenyon MD Referring MD: Aneudy Kenyon MD Medicines: Propofol per Anesthesia Patient Profile: This is a 65 year old male. Refer to note in patient chart for documentation of history and physical. Complications: No immediate complications. Estimated blood loss: Minimal. Procedure: Pre-Anesthesia Assessment: - Prior to the procedure, a History and Physical was performed, and patient medications and allergies were reviewed. The patient's tolerance of previous anesthesia was also reviewed. The risks and benefits of the procedure and the sedation options and risks were discussed with the patient. All questions were answered, and informed consent was obtained. Prior Anticoagulants: The patient has taken no anticoagulant or antiplatelet agents. After reviewing the risks and benefits, the patient was deemed in satisfactory condition to undergo the procedure. After obtaining informed consent, the endoscope was passed under direct vision. Throughout the procedure, the patient's blood pressure, pulse, and oxygen saturations were monitored continuously. The Endoscope was introduced through the mouth, and advanced to the second part of duodenum. The upper GI endoscopy was accomplished without difficulty. The patient tolerated the procedure well. Scope In: 9:04:13 AM Scope Out: 9:08:22 AM Total Procedure Duration Time 0 hours 4 minutes 9 seconds Findings: The esophagus was normal. The stomach was normal. The examined duodenum was normal. Biopsies were taken with a cold forceps in the gastric antrum for Helicobacter pylori testing. Mucosa was biopsied with a cold forceps for histology in a targeted manner at the gastroesophageal junction. One specimen bottle was sent to pathology. Impression: - Normal esophagus. - Normal stomach. - Normal examined duodenum. - Biopsies were taken with a cold forceps for Helicobacter pylori testing. Recommendation: - Discharge patient to home. - Resume previous diet. - Continue present medications. - Await pathology results. Procedure Code(s): --- Professional --- 43407, Esophagogastroduodenoscopy, flexible, transoral; with biopsy, single or multiple Diagnosis Code(s): --- Professional --- R10.13, Epigastric pain CPT copyright 2021 [employer]. All rights reserved. The codes documented in this report are preliminary and upon regulatory affairs specialist review may be revised to meet current compliance requirements. Aneudy Kenyon MD 05/25/2025 9:11:32 AM This report has been signed electronically. Number of Addenda: 0 Note Initiated On: 05/25/2025 8:49 AM
== END 2025-05-25 09:55 | disposition home or self-care (01) ==
LOC: EN 07:53 → AC 07:53
PROVIDERS: Visit Provider Surgery
PROC: 0DJ08ZZ Inspection of Upper Intestinal Tract, Via Natural or Artificial Opening Endoscopic (ICD-10-PCS; CPT 43235; principal; 2025-05-25 08:55)
DX: K29.50 Unspecified chronic gastritis without bleeding (principal); I42.9 Cardiomyopathy, unspecified; R10.13 Epigastric pain; I25.10 Atherosclerotic heart disease of native coronary artery without angina pectoris; I10 Essential (primary) hypertension; K21.9 Gastro-esophageal reflux disease without esophagitis; Z79.82 Long term (current) use of aspirin; Z79.899 Other long term (current) drug therapy; Z87.891 Personal history of nicotine dependence; Z95.0 Presence of cardiac pacemaker
CPT/HCPCS: 43239; 88305; 88342; J2405

== ENCOUNTER → 2025-06-08 | Outpatient (CLI) | payer MEDICARE, SELFPAY ==
--- NOTE | 2025-06-08 06:26 | CT_ITS ---
PROCEDURE: ABDOMEN WITH IV CONTRAST 06/08/2025 REASON FOR EXAM: EPIGASTRIC ABD PAIN TECHNIQUE: ABDOMEN WITH IV CONTRAST. Multiplanar Sagittal and Coronal images were obtained. One or more dose reduction techniques were used (e.g., Automated exposure control, adjustment of the mA and/or kV according to patient size, use of iterative reconstruction technique. CONTRAST: Isovue 370 VOLUME: 98 mL RADIATION DOSE SUMMARY: CTDlvol: 20.79 mGy DLP: 761.06 mGycm COMPARISON: CT abdomen and pelvis April 26, 2025. FINDINGS: Lung bases: Clear. Liver: Subcentimeter simple appearing liver cysts. Otherwise unremarkable in contour and density. Gallbladder: Unremarkable. No biliary dilation. Spleen: Unremarkable. Pancreas: Unremarkable. Adrenals: Unremarkable. Kidneys: A 1.5 cm simple cyst at the midpole of the right kidney. No solid masses. No hydronephrosis. No nephrolithiasis. Bowel: No bowel wall thickening. No bowel obstruction. Lymph nodes: No lymphadenopathy. Vasculature: Atherosclerotic calcifications. No aneurysm. Peritoneum / Retroperitoneum: No free air or free fluid. Bones: No acute bony abnormalities. CT/Abdomen WITH IV Contrast IMPRESSION: No acute abdominal abnormalities. Reading Location: [facility]
--- OUTSIDE RECORDS SUMMARY | 2025-06-08 06:28 | XMS RPT_ITS | CCD ---
Author Organization [facility] Care Team Providers Care Edge Bonder Name Role Phone Kenn Sauceda Primary Care Provider Kayden Waggoner Primary Care Provider Unavailable Primary Care Provider Kenn Hoang Primary Care Provider Kayden Waggoner Primary Care Provider Unavailable Primary Care Provider UnavailTomasz Browne MD Primary Care Provider Niki Carr MD Primary Care Provider Florin Patrick DOew Unavailable Darnell COHEN, Javier Unavailable Niki Carr MD Primary Care Provider Javier Patrick DO Unavailable NAROUZE, SAMER Admitting Unavailable NAROUZE, SAMER Attending Unavailable AA NO PCP, NO PCP Primary Care Unavailable NAROUZE, SAMER Attending Unavailable KENN SAUCEDA Primary Care Unavailable NAROUZE, SAMER Admitting Unavailable NAROUZE, SAMER Admitting Unavailable NAROUZE, SAMER Attending Unavailable KENN SAUCEDA Primary Care Unavailable Niki Carr MD Primary Care Provider Javier Patrick DO Unavailable Florin Patrick DOew Unavailable Niki Carr MD Primary Care Provider Unavailable Primary Care Provider UnavailJIM Quick Attending Unavailable NIKI CARR Primary Care Unavailable Dr. Rigo Haile DO Referring Provider [phone] Dr. Rigo Haile DO Emergency Provider [phone] Care Physician, No Primary Primary Care Provider Unavailable Care Physician, No Primary Referring Provider Un available Chantale GARCIA, Dr. Amado Attending Provider TOMASZ LOUIS Referring Unavailable CUTTOMASZ LEÓN Attending Unavailable DAPOZ, MADELYN Referring Unavailable DAPOZ, MADELYN Attending Unavailable DAPOZ, MADELYN Referring Unavailable BURRIS, SUZY Attending Unavailable DAPOZ, MADELYN Attending Unavailable CUTLERTOMASZ Referring Unavailable SELF Referring Unavailable RAH, INDIRESHA R Admitting Unavailable RAH, PATRICIAIRESHA R Attending Unavailable DAPOZ, MADELYN Attending Unavailable LOLLATHINJIM Referring Unavailab le CUTMAU, TOMASZ Wong Referring Unavailable HUMPHRYS, SUZY Attending Unavailable RAH, INDIRESHA R Attending Unavailable RAH, INDIRESHA R Referring Unavailable DAPOZ, MADELYN Referring Unavailable Haile DO, Dr. Sierra Attending Provider Chantale GARCIA, Dr. Amado Other Provider Aneudy Kenyon Attending Unavailable Care Physician, No Primary Primary Care Unava ilable Care Physician, No Primary Referring Unava ilable Rigo Haile Attending Unavailable Rigo Haile Referring Unavailable Care Physician, No Primary Primary Care Unava ilable Aneudy Kenyon Attending Unavailable Aneudy Kenyon Referring Unavailable Care Physician, No Primary Primary Care Unava ilable Aneudy Kenyon Attending Unavailable Care Physician, No Primary Referring Unava ilable Care Physician, No Primary Primary Care Unava ilable Aneudy Kenyon Attending Unavailable Care Physician, No Primary Referring Unava ilable Care Physician, No Primary Primary Care Unava ilable Aneudy Kenyon Consulting Unavailable Allergies Allergy Classification Reported Allergen(s) Allergy Type Date of Onset Reaction(s) Facility Buprenorphine (2 sources) Buprenorphine Drug Allergy 0 Other: See Comments [facility] (20 sources) Buprenorphine; Translations: [BUPRENORPHINE] Drug Allergy 0 Other: See Comments [facility] Medications Current Medications Medication Drug Class(es) Dates Sig (Normalized) Sig (Original) aspirin 81 mg oral tablet (20 sources) Platelet Aggregation Inhibitor, Nonsteroidal Anti-inflammatory Drug Start: 04-30-2025 take 1 tablet by mouth once daily Aspirin 81 mg tablet Active 81 mg PO daily April 30, 2025 12:00am Start: 02-18-2013 take 1 tablet by parris once daily aspirin, enteric coated (ADULT LOW DOSE ASPIRIN) 81 mg EC tablet Take 1 tablet by mouth once daily. 0 12/05/2012 Active Comment on above: Take 1 tablet by parris once daily. carvedilol 12.5 mg oral tablet (20 sources) alpha-Adrenergic Monik, beta-Adrenergic Monik Start: 04-30-2025 take 1 tablet by mouth twice daily Carvedilol 12.5 mg tablet Active 12.5 mg PO TWICE A DAY April 30, 2025 12:00am Start: 10-25-2023 End: 01-18-2025 take 1 tablet by mouth twice daily Carvedilol 12.5 mg tablet Active 12.5 mg PO TWICE A DAY April 30, 2025 12:00am Start: 07-25-2019 End: 11-19-2022 take 1 tablet by mouth twice daily carvedilol (COREG) 12.5 mg tablet Indications: Chronic systolic CHF (congestive heart failure) (HCC) , Cardiac resynchronization therapy defibrillator (ROAD 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 , Cardiomyopathy, nonischemic (HCC) Take 1 tablet by mouth twice daily. 180 tablet 3 11/19/2022 Active Comment on above: TAKE 1 TABLET BY PARRIS TWICE DAILY Take 1 tablet by parris twice daily. Take 1 tablet by parris two times a day. cyclobenzaprine hydrochloride 5 mg oral tablet (20 sources) Muscle Relaxant Start: 025 take 1 tablet by mouth every eight hours as needed cyclobenzaprine (FLEXERIL) 5 mg tablet Take 1 tablet by mouth three times a day as needed for muscle spasm. 15 tablet 12/24/2024 Active diclofenac sodium 0.01 mg/mg topical gel (20 sources) Nonsteroidal Anti-inflammatory Drug Start: End: 023 apply 2 g topically four times daily diclofenac (VOLTAREN) 1 % topical gel Indications: Plantar fasciitis Apply 2 g to affected area four times daily. 450 g 11/10/2022 Active Comment on above: Apply 2 g to affecte d area four times daily. empagliflozin 10 mg oral tablet (18 sources) Sodium-Glucose Cotransporter 2 Inhibitor Start: 025 take 1 tablet by mouth once daily at breakfast empagliflozin (JARDIANCE) 10 mg tablet Take 1 tablet by mouth daily with breakfast. 30 tablet 11 01/16/2025 Active esomeprazole 40 mg delayed release oral capsule (20 sources) Proton Pump Inhibitor Start: take 1 capsule by mouth once daily Esomeprazole Magnesium 40 mg capsule,delayed release(DR/EC) Active 40 mg PO daily April 30, 2025 12:00am Start: 11-19-2022 take 1 capsule by mo uth once daily esomeprazole (NEXIUM) 40 mg capsule Take 1 capsule by mouth once daily. 30 capsule 11 11/19/2022 Active Start: 02-09-2018 End: 11-10-2022 take 1 capsule by mouth once daily esomeprazole (NEXIUM) 40 mg capsule Take 1 capsule by mouth once daily. 30 capsule 02/09/2018 11/10/2022 Discontinued Comment on above: Take 1 capsule by mo uth once daily. furosemide 40 mg oral tablet (20 sources) Loop Diuretic Start: 02-09-2025 take 1 tablet by mouth once daily Furosemide 40 mg tablet Active 40 mg PO daily April 30, 2025 12:00am Start: 10-25-2023 take 1 tablet by parris th once daily furosemide (LASIX) 40 mg tablet Indications: Chronic systolic CHF (congestive heart failure) (HCC) , Cardiac resynchronization therapy defibrillator (ROAD 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 , Cardiomyopathy, nonischemic (HCC) Take 1 tablet by mouth once daily. 90 tablet 10/25/2023 Active Start: 07-25-2019 End: 11-19-2022 take 1 tablet by mouth once daily furosemide (LASIX) 40 mg tablet Indications: Chronic systolic CHF (congestive heart failure) (HCC) , Cardiac resynchronization therapy defibrillator (ROAD 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 , Cardiomyopathy, nonischemic (HCC) Take 1 tablet by mouth once daily. 90 tablet 3 11/19/2022 Active Comment on above: TAKE 1 TABLET BY PARRIS TH ONCE DAILY Take 1 tablet by parris th once daily. lisinopril 20 mg oral tablet (20 sources) Angiotensin Converting Enzyme Inhibitor Start: 02-22-2025 take 1 tablet by mouth twice daily Lisinopril 20 mg tablet Active 20 mg PO TWICE A DAY April 30, 2025 12:00am Start: 10-25-2023 End: 01-16-2025 take 1 tablet by mouth twice daily lisinopril (ZESTRIL) 20 mg tablet Indications: Chronic systolic CHF (congestive heart failure) (HCC) , Cardiac resynchronization therapy defibrillator (ROAD 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 , Cardiomyopathy, nonischemic (HCC) Take 1 tablet by mouth two times a day. 180 tablet 10/25/2023 01/16/2025 Discontinued (Course of therapy completed) Start: 07-25-2019 End: 11-19-2022 take 1 tablet by mouth twice daily lisinopril (ZESTRIL, PRINIVIL) 20 mg tablet Indications: Chronic systolic CHF (congestive heart failure) (HCC) , Cardiac resynchronization therapy defibrillator (ROAD 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 , Cardiomyopathy, nonischemic (HCC) Take 1 tablet by mouth twice daily. 180 tablet 3 11/19/2022 Active Comment on above: TAKE 1 TABLET BY PARRIS TH TWICE DAILY Take 1 tablet by parris th twice daily. Take 1 tablet by parris th two times a day. meclizine hydrochloride 25 mg oral tablet (20 sources) Antiemetic Start: take 1 tablet by mouth three times daily as needed meclizine (ANTIVERT) 25 mg tab Indications: Benign paroxysmal positional vertigo, unspecified laterality Take 1 tablet by mouth three times daily as needed. 90 tablet 2 10/24/2021 Active Start: 08-26-2020 End: 08-26-2020 take 1 tablet by mouth three times daily as needed meclizine (ANTIVERT) 25 mg tab Indications: Benign paroxysmal positional vertigo, unspecified laterality Take 1 tablet by mouth three times daily as needed. 90 tablet 2 08/26/2020 Active Comment on above: Take 25 mg by mouth three times daily as needed. Take 1 tablet by parris th three times daily as needed. methylPREDNISolone (1 source) Corticosteroid Start : 12-29 End: 01-04 methylPREDNISolone (MEDROL, MUNDO,) 4 mg Dose-Pack Indications: Cervical pain , Myofascial pain As directed 21 tablet 12/29/2024 01/04/2025 Active naproxen 500 mg oral tablet (1 source) Nonsteroidal Anti-inflammatory Drug Start : 12-24 End: 01-07 take 1 tablet by mouth every twelve hours as needed naproxen (NAPROSYN) 500 mg tablet Take 1 tablet by mouth two times a day as needed for pain for up to 14 days. Take with food. 28 tablet 12/24/2024 01/07/2025 Active ondansetron 4 mg disintegrating oral tablet (3 sources) Serotonin-3 Receptor Antagonist Start : 04-26 take 1 tablet by mouth every six hours as needed for nausea and vomiting Ondansetron 4 mg tablet,disintegrating Active 4 mg PO EVERY 6 HOURS as needed for nausea and vomiting 20 0 April 26, 2025 12:00am perflutren lipid microspheres 1.3 mL in NaCl (PF) 0.9% 10 mL injection (DEFINITY) (20 sources) Start : 02-08 End: 02-15 perflutren lipid microspheres 1.3 mL in NaCl (PF) 0.9% 10 mL injection (DEFINITY) Start: 05-01-2021 End: 07-31-2022 perflutren lipid microsphere s 1.3 mL in NaCl (PF) 0.9% 10 mL injection (DEFINITY) rosuvastatin calcium 20 mg oral tablet (6 sources) HMG-CoA Reductase Inhibitor Start: 05-23-2025 take 1 tablet by mouth at bedtime Rosuvastatin 20 mg tablet Active 20 mg PO AT BEDTIME May 23, 2025 12:00am Start: 03-06-2025 take 1 tablet by parris th once daily at bedtime rosuvastatin (CRESTOR) 20 mg tablet Take 1 tablet by mouth daily at bedtime. 30 tablet 11 03/06/2025 Active 125 ml sodium chloride 9 mg/ ml prefilled syringe (20 sources) Start: 02-09-2024 End: 02-16-2024 sodium chloride 0.9 % (flush ) 10 mL (BD POSIFLUSH) Start: 05-01-2021 End: 07-31-2022 sodium chloride 0.9 % (flush ) 10 mL (BD POSIFLUSH) spironolactone 25 mg oral tablet (20 sources) Aldosterone Antagonist Start: 04-30-2025 take 1 tablet by mouth once daily Spironolactone 25 mg tablet Active 25 mg PO DAILY April 30, 2025 12:00am Start: 07-25-2019 End: 04-24-2025 Spironolactone 25 mg tablet Active mg PO April 30, 2025 12:00am Comment on above: TAKE 1 TABLET BY PARRIS TH ONCE DAILY Take 1 tablet by parris th once daily. topiramate 100 mg oral tablet (20 sources) Start: 01-04-2019 End: 08-26-2020 take 1 tablet by mouth once daily at bedtime topiramate (TOPAMAX) 100 mg tablet Indications: Migraine with aura, not intractable, without status migrainosus Take 1 tablet by mouth daily at bedtime. 30 tablet 4 08/26/2020 Active Comment on above: TAKE 1 TABLET BY PARRIS TH ONCE DAILY AT BEDTIME Take 1 tablet by parris th daily at bedtime. Completed/Discontinued Medications Medication Drug Class(es) Dates Sig (Normalized) Sig (Original) atorvastatin 20 mg oral tablet (20 sources) HMG-CoA Reductase Inhibitor Start: 04-30-2025 End: 05-23-2025 take 1 tablet by mouth once daily Atorvastatin 20 mg tablet Discontinued 20 mg PO daily April 30, 2025 12:00am May 23, 2025 11:00am Start: 02-09-2025 take 1 tablet by parris th once daily atorvastatin (LIPITOR) 20 mg tablet Take 1 tablet by mouth once daily. 90 tablet 3 02/09/2025 Active Start: 10-25-2023 take 1 tablet by parris th once daily atorvastatin (LIPITOR) 20 mg tablet Take 1 tablet by mouth once daily. 90 tablet 10/25/2023 Active Start: 07-01-2021 End: 11-19-2022 take 1 tablet by mouth once daily atorvastatin (LIPITOR) 20 mg tablet Take 1 tablet by mouth once daily. 90 tablet 3 11/19/2022 Active Comment on above: Take 1 tablet by parris th once daily. Bupivacaine (2 sources) Amide Local Anesthetic Start: 01-16-2025 End: 01-16-2025 BUPivacaine HCl 2.5 mg injection (SENSORCAINE) Start: 01-16-2025 End: 01-16-2025 2.5 mg, OTHER, ONCE, 1 dose, On Wed01/16/25 at 1430 gabapentin 600 mg oral tablet (20 sources) Anti-epileptic Agent Start: 04-05-2017 End: 02-05-2025 take 1 tablet by mouth three times daily gabapentin (NEURONTIN) 600 mg tablet Take 600 mg by mouth three times a day. 04/05/2017 02/05/2025 Discontinued Comment on above: Take 600 mg by mouth three times daily. perflutren lipid microspheres 1.1 mg/mL 1.3 mL injection (DEFINITY) (1 source) Start: 01-08-2025 End: 01-08-2025 1.3 mL, INTRAVENOUS, ONCE, 1 dose, On Wed01/08/25 at 1000, Perflutren must be activated prior to administration. Once activated: 1. Diluted IV Bolus: Dilute 1.3 mL of Definity with 8.7 mL of preservative-free saline 2. Undiluted IV Bolus: Administer undiluted Definity followed by a preservative-free 10 mL saline flush. sacubitril 24 mg / valsartan 26 mg oral tablet (12 sources) Angiotensin 2 Receptor Monik Start: 01-16-2025 End: 02-22-2025 sacubitril-valsart an (ENTRESTO) 24-26 mg tablet Take 1 tablet by mouth two times a day. First dose January 19 90 tablet 3 02/14/2025 02/22/2025 Discontinued (Cost of medication) tadalafil 20 mg oral tablet (20 sources) Phosphodiesterase 5 Inhibitor Start: 04-30-2025 End: 05-23-2025 take 1 tablet by mouth every twenty-four hours Tadalafil (Cialis) 20 mg tablet Discontinued 20 mg PO daily as needed April 30, 2025 12:00am May 23, 2025 10:59am administer approximately 30min before sexual activity; do not use more than 1 dose per 24hrs Start: 11-26-2023 take 1 tablet by parris th once daily, then take 1 tablet by mouth once daily Tadalafil (CIALIS) 5 mg tablet Indications: Benign prostatic hyperplasia with urinary frequency , Erectile dysfunction due to arterial insufficiency Take 1 tablet by mouth once daily. Take 1 tablet by mouth daily 30 tablet 11/26/2023 Active Comment on above: Take 1 tablet by parris th once daily. Take 1 tablet by mouth daily Problems Active Problems Problem Classification Problem Date Documented Da te Episodic/Chronic Abdominal pain (20 sources) Epigastric pain; Translations: [Epigastric pain] Onset: 7 08-30-2017 Episodic Cardiac dysrhythmias (20 sources) Palpitations; Translations: [Palpitations] 06-15-2016 Episodic Conditions associated with dizziness or vertigo (1 source) Benign paroxysmal positional vertigo; Translations: [Benign paroxysmal positional vertigo, unspecified laterality] Episodic Conduction disorders (20 sources) Bundle branch block; Translations: [Automatic implantable cardiac defibrillator in situ] Onset: 6 05-27-2017 Chronic Congestive heart failure; nonhypertensive (20 sources) Congestive heart failure; Translations: [Chronic systolic heart failure] Onset: 3 12-05-2012 Chronic Coronary atherosclerosis and other heart disease (20 sources) Coronary arteriosclerosis; Translations: [Ischemic myocardial dysfunction] Onset: 6 06-15-2016 Chronic Disorders of lipid metabolism (20 sources) Hypertriglyceridemia; Translations: [Pure hyperglyceridemia] Onset: 7 02-11-2017 Chronic Esophageal disorders (20 sources) Gastroesophageal reflux disease with hiatal hernia; Translations: [Gastro-esophageal reflux disease without esophagitis] Onset: 8 02-10-2018 Chronic Essential hypertension (20 sources) Essential hypertension; Translations: [Essential (primary) hypertension] Onset: 4 11-19-2023 Chronic Headache; including migraine (1 source) Migraine with aura; Translations: [Migraine with aura, not intractable, without status migrainosus] Chronic Hyperplasia of prostate (3 sources) Urinary frequency due to benign prostatic hypertrophy; Translations: [Benign prostatic hyperplasia with lower urinary tract symptoms] Onset: 4 11-26-2023 Chronic Nonspecific chest pain (2 sources) Precordial pain; Translations: [Precordial pain] Episodic Other and unspecified benign neoplasm (1 source) Adenomatous polyp of colon ; Translations: [Benign neoplasm of ascending colon] 12-20-2023 Episodic Other and unspecified benign neoplasm (1 source) Serrated polyp of colon; Translations: [Polyp of colon] 12-20-2023 Episodic Other circulatory disease (3 sources) H/O: heart failure; Translations: [Personal history of other diseases of the circulatory system] 04-26-2025 Episodic Other connective tissue disease (1 source) Plantar fasciitis; Translations: [Plantar fascial fibromatosis] Episodic Other connective tissue disease (2 sources) Myofascial pain; Translations: [Myalgia, other site] 01-15-2025 Episodic Other connective tissue disease (12 sources) Tendinitis of right rotator cuff; Translations: [Tendinitis of right rotator cuff] Onset: 0 09-02-2020 Other connective tissue disease (1 source) Pain in right thumb; Translations: [Thumb pain, right] Other gastrointestinal disorders (1 source) Occult blood in stools; Translations: [Heme positive stool] Episodic Other gastrointestinal disorders (1 source) Constipation; Translations: [Constipation, unspecified] 12-20-2023 Episodic Other infections; including parasitic (4 sources) History of Helicobacter pylori infection; Translations: [Personal history of other infectious and parasitic diseases] 04-26-2025 Episodic Other lower respiratory disease (3 sources) Dyspnea; Translations: [Shortness of breath] Onset: 5 Episodic Other lower respiratory disease (2 sources) Dyspnea on exertion; Translations: [Dyspnea, unspecified] Episodic Other male genital disorders (2 sources) Erectile dysfunction co-occurrent and due to arterial insufficiency; Translations: [Erectile dysfunction due to arterial insufficiency] 11-26-2023 Chronic Other male genital disorders (1 source) Erectile dysfunction due to arterial insufficiency; Translations: [Erectile dysfunction due to arterial insufficiency] Onset: 4 Chronic Other male genital disorders (1 source) Disorder of prostate; Translations: [Disorder of prostate, unspecified] 12-01-2023 Episodic Other nervous system disorders (20 sources) Carpal tunnel syndrome of left wrist; Translations: [Carpal tunnel syndrome, left upper limb] Onset: 8 09-28-2018 Chronic Other nervous system disorders (15 sources) Carpal tunnel syndrome of left wrist; Translations: [Carpal tunnel syndrome of left wrist] Onset: 8 09-28-2018 Other nutritional; endocrine; and metabolic disorders (11 sources) Obese class I; Translations: [Obesity, unspecified] Onset: 8 05-30-2018 Chronic Other nutritional; endocrine; and metabolic disorders (15 sources) Obese class I; Translations: [Obesity, Class I, BMI 30-34.9] Onset: 8 05-30-2018 Other screening for suspected conditions (not mental disorders or infectious disease) (3 sources) Patient encounter status; Translations: [Encounter for screening for other disorder] 11-26-2023 Episodic Mariama-; endo-; and myocarditis; cardiomyopathy (except that caused by tuberculosis or sexually transmitted disease) (20 sources) Cardiomyopathy; Translations: [Dilated cardiomyopathy] Onset: 3 12-05-2012 Chronic Residual codes; unclassified (1 source) Family history of cancer of colon; Translations: [Family history of malignant neoplasm of digestive organs] 12-20-2023 Episodic Spondylosis; intervertebral disc disorders; other back problems (20 sources) Displacement of lumbar intervertebral disc without myelopathy; Translations: [Other intervertebral disc displacement, lumbar region] Onset: 1 08-09-2021 Chronic Spondylosis; intervertebral disc disorders; other back problems (20 sources) Lumbosacral radiculopathy; Translations: [Radiculopathy, lumbosacral region] Onset: 1 08-09-2021 Episodic Unclassified (1 source) Chronic pain of right upper limb; Translations: [Chronic right shoulder pain] Unclassified (4 sources) Patient encounter status; Translations: [Screening for colon cancer] Past or Other Problems Problem Classification Problem Date Documented Da te Episodic/Chronic Administrative/social admission (1 source) Other specified counseling; Translations: [Encounter for discussion regarding cardiac resynchronization therapy defibrillator (ROAD GRADER OPERATOR-D)] Onset: 4 Episodic Esophageal disorders (20 sources) Gastroesophageal reflux disease with hiatal hernia; Translations: [Diaphragmatic hernia without obstruction or gangrene] Onset: 8 02-10-2018 Episodic Gastrointestinal hemorrhage (20 sources) Rectal hemorrhage; Translations: [Hemorrhage of anus and rectum] Onset: 4 Episodic Genitourinary symptoms and ill-defined conditions (1 source) Frequency of micturition; Translations: [Benign prostatic hyperplasia with urinary frequency] Onset: 4 Episodic Other and unspecified benign neoplasm (20 sources) History of polyp of colon; Translations: [Personal history of colonic polyps] Onset: 7 Resolved: 1 08-30-2017 Episodic Other connective tissue disease (20 sources) Tendinitis of right rotator cuff; Translations: [Other shoulder lesions, right shoulder] Onset: 0 Resolved: 1 09-02-2020 Episodic Other connective tissue disease (1 source) Myalgia, other site; Translations: [Myofascial pain] Onset: 5 Episodic Other nutritional; endocrine; and metabolic disorders (20 sources) Obesity; Translations: [Obesity, unspecified] Onset: 3 Resolved: 1 12-05-2012 Chronic Sprains and strains (1 source) Strain of muscle, fascia and tendon at neck level, initial encounter; Translations: [Acute cervical myofascial strain, initial encounter] Onset: 5 Episodic Results Test Name Value Interpretation Reference Range Facility EGD Reporton 05-25-2025 EGD Report [facility] Medical Records Department [address] [place] [address] EGD Report MR#: [id number] Acct: [id number] Name: VINCENT MADDEN Rep #: [id number] : 1960 65 From: Aneudy Kenyon MD PCP: Care Physician,No Primary Status:[facility] Patient Name: Vincent Madden Procedure Date: 05/25/2025 8:49 AM Date of : 1960 Age: 65 Procedure: Upper GI endoscopy Indications: Epigastric abdominal pain Providers: Aneudy Kenyon MD Referring MD: Aneudy Kenyon MD Medicines: Propofol per Anesthesia Patient Profile: This is a 65 year old male. Refer to note in patient chart for documentation of history and physical. Complications: No immediate complications. Estimated blood loss: Minimal. Procedure: Pre-Anesthesia Assessment: - Prior to the procedure, a History and Physical was performed, and patient medications and allergies were reviewed. The patient's tolerance of previous anesthesia was also reviewed. The risks and benefits of the procedure and the sedation options and risks were discussed with the patient. All questions were answered, and informed consent was obtained. Prior Anticoagulants: The patient has taken no anticoagulant or antiplatelet agents. After reviewing the risks and benefits, the patient was deemed in satisfactory condition to undergo the procedure. After obtaining informed consent, the endoscope was passed under direct vision. Throughout the procedure, the patient's blood pressure, pulse, and oxygen saturations were monitored continuously. The Endoscope was introduced through the mouth, and advanced to the second part of duodenum. The upper GI endoscopy was accomplished without difficulty. The patient tolerated the procedure well. Scope In: 9:04:13 AM Scope Out: 9:08:22 AM Total Procedure Duration Time 0 hours 4 minutes 9 seconds Findings: The esophagus was normal. The stomach was normal. The examined duodenum was normal. Biopsies were taken with a cold forceps in the gastric antrum for Helicobacter pylori testing. Mucosa was biopsied with a cold forceps for histology in a targeted manner at the gastroesophageal junction. One specimen bottle was sent to pathology. Impression: - Normal esophagus. - Normal stomach. - Normal examined duodenum. - Biopsies were taken with a cold forceps for Helicobacter pylori testing. Recommendation: - Discharge patient to home. - Resume previous diet. - Continue present medications. - Await pathology results. Procedure Code(s): --- Professional --- 31541, Esophagogastroduodeno scopy, flexible, transoral; with biopsy, single or multiple Diagnosis Code(s): --- Professional --- R10.13, Epigastric pain CPT copyright 2021 [employer]. All rights reserved. The codes documented in this report are preliminary and upon surgical scrub technician review may be revised to meet current compliance requirements. Aneudy Kenyon MD 05/25/2025 9:11:32 AM This report has been signed electronically. Number of Addenda: 0 Note Initiated On: 05/25/2025 8:49 AM 05/25/25 0911 Date Aneudy Kenyon MD Cosigner Signature: Date (if indicated) CC: Dr. Aneudy Kenyon MD; No Primary Care Physician Date Dictated: 05/25/25 0849 Date Transcribed: Transportation Planning Engineer: RAJIV Signed Normal [facility] Immunohistochemical Stainson 05-25-2025 Immunohistochemical Stains -------- Patient Age/Sex Location Account Attending Physician -------- VINCENT MADDEN 65/M EN [id number] Dr. Aneudy Kenyon MD -------- Specimen: [id number] Received: 05/25/25 Status: IRIS Franca Num: [id number] Spec Type: EGD BIOPSY Subm Dr: Dr. Aneudy Kenyon MD HEADER OPERATION: EGD with biopsies PRE-OP DIAGNOSIS: History of Helicobacter pylori infection TISSUE SUBMITTED: A- Antrum biopsy, B- GE junction biopsy -------- MICROSCOPIC DIAGNOSIS A. Antrum, biopsy: Chronic gastritis with features of reactive gastropathy. IHC negative for Helicobacter pylori organisms. B. GE junction, biopsy: Squamocolumnar mucosa negative for goblet cell metaplasia. Negative for dysplasia. MICROSCOPIC DESCRIPTION Slides are reviewed. All matched controls reacted appropriately. These tests were developed and their performance characteristics determined by [facility]. They may not have been cleared or approved by the U.S. Food and Drug Administration. The FDA has determined that such clearance or approval is not necessary. The above immunohistochemical/d ualISH markers are viewed by the Pathologist. GROSS DESCRIPTION A. Received in fixative is one container labeled with the patient's name and designated Antrum biopsy. The specimen consists of four irregular fragments of light coates soft tissue that measure 0.3 to 0.6 cm. The specimen is totally submitted in one cassette. B. Received in fixative is one container labeled with the patient's name and designated GE junction biopsy. The specimen consists of one irregular fragment of light coates soft tissue that measures 0.5 cm. The specimen is totally submitted in one cassette. [place] 05/25/2025 CPT:13087g9,17980 -------- Patient Age/Sex Location Account Attending Physician -------- VINCENT MADDEN/M EN [id number] Dr. Aneudy Kenyon MD -------- Signed (signature on file) Dr. Clara Knox MD 05/29/25 1308 -------- Normal [facility] Comment on above: Performed By: #### P IMMI #### [facility] [address] [place], [place], [address] MR/OP.PROVATon 05-25-2025 [facility] Medical Records Department [address] [place] [address] Provation Physician Letter MR#: [id number] Acct: [id number] Name: VINCENT MADDEN Rep #: [id number] : 1960 65 From: Aneudy Kenyon MD PCP: Care Physician,No Primary Status:[facility] 05/25/2025 No Primary Care Physician Re : Upper GI endoscopy procedure for Vincent Madden Dear Care Physician This procedure was performed on Sunday, May 25, 2025. My impressions and recommendations are as follows: Impressions : - Normal esophagus. - Normal stomach. - Normal examined duodenum. - Biopsies were taken with a cold forceps for Helicobacter pylori testing. Recommendations : - Discharge patient to home. - Resume previous diet. - Continue present medications. - Await pathology results. My findings are described in the full procedure note, which is enclosed. If I can be of further assistance, please feel free to contact me at Doctor phone number(s): , Work: . Sincerely, Aneudy Kenyon MD 05/25/2025 9:11:32 AM This report has been signed electronically. 05/25/25910 Date Aneudy Olmedo Signature: Date (if indicated) CC: Dr. Aneudy Kenyon MD; No Primary Care Physician Date Dictated: 05/25/25848 Date Transcribed: Transportation Planning Engineer: Signed [facility] MR/POSTOP.ANE 05-25-2025 MR/POSTOP.[facility] Medical Records Department [address] [place] [address] Anesthesia Postop Eval I 05/25/25909 MR#: [id number] Acct: [id number] Name: VINCENT MADDEN Rep #: [id number] : 1960 65 From: Garo Weeks CRNA PCP: Care Physician,No Primary Status:REG SDC Y Race: C Location: [place] [address] Anesthesia: Postop Eval I Current Vital Signs Temperature: 98 F Pulse Rate: 71 Blood Pressure: 102/70 Respiratory Rate: 14 Pulse Ox: 92 Oxygen Delivery Method: Room Air Assessment Airway patent: Yes Spontaneous unlabored respirations: Yes Mental status: Awake and Calm nausea: No Vomiting: No Anesthesia Complication: No Fluid Hydration Crystalloid volume administer (ml): 300 Total IV fluid infused: 300 Progress Note Anesthesia document: Postop Eval 1 completed: Yes 05/25/25909 Date Garo Olmedo Signature: Date CC: Signed [facility] MR/PAT.JAH 05-23-2025 MR/PAT.[facility] Medical Records Department [address] [place] [address] PAT - Anesthesia 05/23/25 1441 MR#: [id number] Acct: [id number] Name: VINCENT MADDEN Rep #: [id number] : 1960 65 From: Charlie Driscoll MD PCP: Care Physician,No Primary Status:PRE [facility] Y Race: C Location: EN Pre-Assessment Diagnosis/Proposed Procedure Planned Operative Procedure(s): EGD Anesthesia History 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 When Was Last Pacemaker Check QUESTION #4 FULL TEXT: You/Your Family Experience fever (hyperthermia) with Anesthesia Last Oral Intake Last Oral intake: Last Oral Intake NPO since Meds taken in AM with sips of water? 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 driver Female No 05/23/25 11:01 HX of Motion Sickness No 05/23/25 11:01 HX of N/V After Surgery No 05/23/25 11:01 Non-Smoker Yes 05/23/25 11:01 Duration of Surgery greater No 05/23/25 11:01 than 60 minutes Number of Risk Factors 1 05/23/25 11:01 PONV Score Low Risk 05/23/25 11:01 Height Weight Height Weight: Anesthesia: Height Weight Height 5 ft 9 in 04/30/25 08:43 Respiratory Assessment Respiratory Assessment - funeral limousine driver: Respiratory Tract Infection Hx - funeral limousine driver Hx Respiratory Tract Infection No 05/23/25 11:01 STOP Sleep Apnea STOP Sleep Apnea - funeral limousine driver: STOP Sleep Apnea - funeral limousine driver Hx Hypertension Yes 05/23/25 11:01 Hx Sleep Apnea No 05/23/25 11:01 CPAP BIPAP Do you snore loudly (louder No 05/23/25 11:01 than talking or can be heard Do you often feel tired/ No 05/23/25 11:01 fatigued/ sleepy during daytime? Has anyone observed you stop No 05/23/25 11:01 breathing during sleep? STOP Results Negative 05/23/25 11:01 QUESTION #5 FULL TEXT : Do you snore loudly (louder than talking or can be heard through closed doors)? 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 Specify any problems Hx of Preganancy in last 3 N/A 05/23/25 11:01 Months Nurse Filling Out Transfusion [facility] 05/23/25 11:01 Questions: Date: 05/23/25 05/23/25 11:01 Time: 11:07 05/23/25 11:01 Patient unable to answer at this time (ie. confused, unrespo /Reproductio n History /Reproductiv e History - funeral limousine driver: /Reproductiv e Hx- funeral limousine driver Hx Now No 05/23/25 11:01 Gestational Age (in weeks): EDC: Hx Hx Para Hx Section SAB No 05/23/25 11:01 [facility] Medical History (Updated 05/23/25 @ 11:06 by Yoselyn Rodriguez) Arthritis High cholesterol Migraine headache Gastric reflux Former smoker Shortness of breath on exertion History of pacemaker History of echocardiogram Cardiology follow-up encounter H pylori ulcer Rectal polyp Rectal bleeding GERD (gastroesophageal reflux disease) HTN (hypertension) Hypertriglyceridemia Hernia CAD (coronary atherosclerotic disease) Palpitation Cardiomyopathy LBBB (left bundle branch block) Pacemaker Home Medications ???Medication ???Instructions ???Recorded ???Last Taken ???Type ondansetron 4 mg disintegrating 4 mg PO Q6H PRN nausea and 5 Unknown Rx tablet vomiting #20 tabs aspirin 81 mg tablet 81 mg PO QDAY 04/30/25 Unknown His tory carvedilol 12.5 mg tablet 12.5 mg PO BID 04/30/25 Unknown Hi story esomeprazole magnesium 40 mg 40 mg PO QDAY 04/30/25 Unknown His tory capsule,delayed release furose (more content not included)... Normal [facility] 05-01-2025 [facility] Telephone ([facility]) VINCENT MADDEN ([id number]) 1960 M Date Time Provider Department 05/01/25 GELY ELLISON [facility] During your visit today, we recorded the following information about you: Gely Awad 05/01/2025 11:15 AM Signed Patient's daughter, Himanshu, reached out to the [facility] with concern for patient. Patient has gained 20#'s in a month. Patient went to ED for 8 hours, had blood work and EKG and never saw a doctor and left. Then went to [place] ED had blood work and was told everything was fine. However, she did state at some point he did receive liquid medication. He is now home with swelling in stomach and legs. Patient took 2 40 mg Lasix tabs today at 6:00 am and has not urinated. He usually pees within 10-15 minutes after taking just 40 mg. She is concerned that he has not had a reaction to doubling up on Lasix. [phone] Dominic Bledsoe, ANDRES 05/01/2025 4:40 PM Signed Call returned to Himanshu. Himanshu states that her father has been taking extra Lasix but has not seen increase in urination. Patient was in ED with complaints of Shortness of Breath. CXR and BNP did not indicate fluid. Weight stable at 195 lbs. Discussed that there are many causes of Shortness of Breath and that taking additional Lasix without change indicates that it may not be fluid. Himanshu agrees. Patient is scheduled to have abdominal testing and scope. Himanshu states she believes that his abdominal discomfort may be cause. Patient recently canceled a visit scheduled for today. Offered to reschedule this visit. Himanshu declined at this time but will call back if symptoms continue. Allergies As of Date: 05/01/2025 Noted Allergy Reaction BUPRENORPHINE 10/04/2020 14 - Other: See Comments Date Reviewed: 04/24/2025 Reviewed by: Arely Burris RN - Fully Assessed Reason for Visit: Patient Update [1234] Cmt: AG [facility] Prescriptions as of 05/01/2025 - spironolactone (ALDACTONE) 25 mg tablet Take 1 tablet by mouth once daily. - rosuvastatin (CRESTOR) 20 mg tablet Take 1 tablet by mouth daily at bedtime. - lisinopril (ZESTRIL) 20 mg tablet Take 1 tablet by mouth two times a day. - furosemide (LASIX) 40 mg tablet Take 1 tablet by mouth once daily. - carvedilol (COREG) 12.5 mg tablet Take 1 tablet by mouth two times a day. - empagliflozin (JARDIANCE) 10 mg tablet Take 1 tablet by mouth daily with breakfast. - cyclobenzaprine (FLEXERIL) 5 mg tablet Take 1 tablet by mouth three times a day as needed for muscle spasm. - Tadalafil (CIALIS) 5 mg tablet Take 1 tablet by mouth once daily. Take 1 tablet by mouth daily - esomeprazole (NEXIUM) 40 mg capsule Take 1 capsule by mouth once daily. - diclofenac (VOLTAREN) 1 % topical gel Apply 2 g to affected area four times daily. - meclizine (ANTIVERT) 25 mg tab Take 1 tablet by mouth three times daily as needed. - topiramate (TOPAMAX) 100 mg tablet Take 1 tablet by mouth daily at bedtime. - aspirin, enteric coated (ADULT LOW DOSE ASPIRIN) 81 mg EC tablet Take 1 tablet by mouth once daily. Problem List As Of Date 05/01/2025 Noted Resolved Systolic congestive heart failure, NYHA class 1*12/05/2012 Obesity [E66.9] 12/05/2012 08/09/2021 ICD (implantable cardioverter-defibril lator) in*06/04/2016 Dilated cardiomyopathy (HCC) [I42.0] 12/02/2012 Palpitations [R00.2] Coronary arteriosclerosis [I25.10] LBBB (left bundle branch block) [I44.7] Hypertriglyceridemia [E78.1] 02/11/2017 History of colonic polyps [Z86.0100] 08/30/2017 08/09/2021 Hiatal hernia with GERD [K44.9, K21.9] 02/10/2018 Carpal tunnel syndrome of left wrist [G56.02] 09/28/2018 Tendinitis of right rotator cuff [M75.81] 09/02/2020 08/09/2021 Lumbosacral radiculopathy [M54.17] 08/09/2021 Sciatica [M54.30] 08/09/2021 Displacement of lumbar intervertebral disc with*08/09/2021 Athscl heart disease of [place] coronary artery *02/26/2016 Chronic HFrEF (heart failure with reduced eject*11/19/2022 Preop examination [Z01.818] 11/19/2023 Gastroesophageal reflux disease [K21.9] 11/19/2023 Rectal bleeding [K62.5] 11/19/2023 HTN (hypertension) [I10] 11/19/2023 Elective replacement of Mdt Biv implantable car*05/30/2024 Encounter Status:Closed by DOMINIC BLEDSOE on 05/01/25 Normal [facility] Surgery Visit Reporton 04-30 Surgery Visit Report [facility] [address] [place] [address] OFFICE VISIT Date of Service: 04/30/25 MR#: [id number] Acct: [id number] Name: VINCENT MADDEN Rep #: [id number] : 1960 Provider: Dr. Aneudy dimas MD Age/Sex: 64/M Location: [facility] Status: Signed Intake Vital Signs 04/26/25 14:41 04/30/25 08:43 Height 5 ft 9 in 5 ft 9 in Weight: 201 lb BMI 29.7 BP 111/78 Blood Pressure Location Rt brachial Position Sitting Respiration 16 Intake Visit Reasons: H PYLORI TEST Chief Complaint: EGD Materials And Processes Manager Required: No Is patient in pain?: Yes (epigastric area ) Pain scale (1-10): 3 Allergies No Known Allergies Allergy (Verified 04/30/25 08:44) Medications ???Medication ???Instructions ???Recorded ???Confirmed ???Type ondansetron 4 mg disintegrating 4 mg PO Q6H PRN nausea and 5 Rx tablet vomiting #20 tabs aspirin 81 mg tablet 81 mg PO QDAY 04/30/25 04/30/25 Hi story atorvastatin 20 mg tablet 20 mg PO QDAY 04/30/25 04/30/25 Hi story carvedilol 12.5 mg tablet 12.5 mg PO BID 04/30/25 04/30/25 H istory esomeprazole magnesium 40 mg 40 mg PO QDAY 04/30/25 04/30/25 Hi story capsule,delayed release furosemide 40 mg tablet 40 mg PO QDAY 04/30/25 04/30/25 Hi story lisinopril 20 mg tablet 20 mg PO BID 04/30/25 04/30/25 His tory spironolactone 25 mg tablet mg PO 04/30/25 04/30/25 History tadalafil 20 mg tablet (Cialis) 20 mg PO QDAY PRN 04/30/25 5 History Have you fallen in the past year?: No PFSH Medical History H pylori ulcer Rectal polyp Rectal bleeding GERD (gastroesophageal reflux disease) HTN (hypertension) Hypertriglyceridemia Hernia CAD (coronary atherosclerotic disease) Palpitation Cardiomyopathy LBBB (left bundle branch block) Pacemaker Surgical History S/P cardiac pacemaker procedure S/P carpal tunnel release Previous back surgery Social History (Updated 04/30/25 @ 08:43 by Amber Akers) Smoking Status: Former smoker alcohol intake: never HPI HPI HPI: Patient is a 64-year-old male here with epigastric pain. The patient reports that he has been having weight gain despite not eating. He has a history of H. pylori. Patient feels like his H. pylori is back again. Patient had a recent EGD and colonoscopy in November. He reports that he was feeling a lot of bloating after eating and having a lot of gas. He is already on Nexium ROS General General: Yes weight change and fatigue; No appetite, colon cancer, breast cancer or weakness HEENT HEENT: Yes difficulty swallowing; No eye injury, eye surgery, swollen glands or hoarseness Endo Endocrine: No thyroid disease, diabetes mellitus, thyroid cancer, Hair loss, heat intolerance or cold intolerance Skin Skin: No rash or changing moles Breast Breast: No left breast lump, right breast lump, nipple discharge, breast pain, abnormal mammogram, abnormal US or breast enlargement Musc Musculoskeletal: Yes back problems and arthritis; No rheumatoid arthritis, gout or joint pain Cardio Cardiovascular: Yes pacemaker, heart disease, atrial fibrillation and high blood pressure; No murmur, heart attack, heart stent, palpitations, shortness of breath with exertion or chest pain Psych Psychiatric: No depression, anxiety or hearing voices Resp Respiratory: Yes shortness of breath, Yes sleep apnea, Yes cough, No COPD, No asthma, No emphysema and No wheezing Gastro Gastrointestinal: Yes abdominal pain, No nausea or vomiting, Yes diarrhea, Yes constipation, Yes blood in stool, Yes acid reflux, No hemorrhoids, No ulcers, No gallbladder problem and No black,tarry stools Rigoberto Hematologic: No blood thinners, No blood disorders, No bleeding, No anemia and No blood clots Neuro Neurologic: No system reviewed and no additional complaints, except as documented, No as per HPI, No abnormal gait, No abnormal hearing, No abnormal movements, No abnormal speech, No behavioral changes, No burning sensations, No confusion, No convulsions, No disequilibrium, No dizziness, No localized weakness, No frequent falls, No headache(s), No lack of coordination, No loss of vision, No memory loss, No numbness, No other visual disturbances, No radicular pain, No restless legs, No sensory deficit, No syncope, No tingling, No tremor(s), No weakness and No other Exam Const General: cooperative Orientation: alert and oriented x3 HENMT Head: normal to inspection Neck Neck: normal visual inspection and full ROM Chest Chest palpation inspection: normal inspection of the chest Resp Effort Inspection: normal respiratory effort Auscultation: clear to auscultation bilaterally Cardio Ra (more content not included)... Normal [facility] Abdomen/Pelvis W IV Cont ONL Yon 04-26-2025 Abdomen/Pelvis W IV Cont ONLY [facility] Imaging Services [address] [place], [place] [address] Abdomen/Pelvis W IV Cont ONLY MR#: [id number] Acct: [id number] Name: VINCENT MADDEN Rep #: [id number] : 1960 M 64 From: Javier Medina MD PCP: Care Physician,No Primary Status: REG ER Study: Abdomen/Pelvis W IV Cont ONLY Date of Exam: Exam# [id number] Ordering Dr: Rigo Haile DO PROCEDURE: ABDOMEN/PELVIS W IV CONT ONLY 04/26/2025 REASON FOR EXAM: EPIGASTRIC PAIN, N/V TECHNIQUE: ABDOMEN/PELVIS W IV CONT ONLY Coronal and Sagittal reconstruction series were provided. CONTRAST: Isovue 370 VOLUME: 92 mL One or more dose reduction techniques were used (e.g., Automated exposure control, adjustment of the mA and/or kV according to patient size, use of iterative reconstruction technique. RADIATION DOSE SUMMARY: CTDlvol: 13.30+ 20.66 mGy DLP: 1157.52 mGycm COMPARISON: None. FINDINGS: The lung bases are clear. Coronary artery calcifications. The peripheral soft tissues are unremarkable. Degenerative changes of the spine. Moderate atherosclerosis. Normal caliber abdominal aorta. No suspicious lymphadenopathy. Hepatic subcentimeter hypodense lesions that are too small to characterize. The gallbladder, pancreas, spleen, adrenals are unremarkable. Symmetric enhancement of the bilateral kidneys. No hydroureteronephrosis . The urinary bladder is unremarkable. Borderline sigmoid colon wall thickening without adjacent inflammatory changes. Equivocal for acute uncomplicated diverticulitis. Borderline gastric wall thickening which may be due to underdistention or gastritis. CT/Abdomen/Pelvis W IV Cont ONLY IMPRESSION: Sigmoid colon wall thickening without significant adjacent inflammatory changes equivocal for acute uncomplicated sigmoid diverticulitis. Borderline gastric wall thickening which may be due to underdistention or gastritis. Reading Location: [place] [address] CC: Dr. Rigo Haile DO; No Primary Care Physician Transportation Planning Engineer: Signed Normal [facility] Absolute lymphocyte countOrd ered By: Rigo Haile on 04-26-2025 Lymphocytes Auto (Unsp spec) [#/Vol] 2.12 10*3/uL 0.83-4.51 [facility] Absolute neutrophil countOrd ered By: Rigo Haile on 04-26-2025 Neutrophils (Bld) [#/Vol] 4.5 10*3/uL 2.0-7.7 [facility] Anion gap in Serum or Plasma Ordered By: Rigo Haile on 04-26-2025 Anion gap [Moles/Vol] 12 mmol/L 5- [facility] Automated lymphocyte count a s percentage of total leukocytesOrdered By: Rigo Haile on 04-26-2025 Lymphocytes/100 WBC Auto (Unsp spec) 27.4 % - [facility] BUN/creatinine ratioOrdered By: Rigo Haile on 04-26-2025 Urea nitrogen/Creatinine [Mass ratio] 19.6 mg/mg 10- [facility] Basophil percentageOrdered B y: Rigo Haile on 04-26-2025 Basophils/100 WBC (Bld) 1.4 % High 0-1 [facility] Bilirubin Test strip Ql (U)O rdered By: Rigo Haile on 04-26-2025 Bilirubin Ql (U) Negative Negative [facility] Bilirubin, totalOrdered By: Rigo Haile on 04-26-2025 Bilirubin [Mass/Vol] 0.43 mg/dL 0.00-1.30 [facility] CBC W/Diff, Automatedon 04-17 Absolute Lymph 2.12 X10 3/uL Normal 0.83-4.51 [facility] Comment on above: Performed By: #### L 503.7505, L501.4021 #### [facility] [address] [place], [address] Absolute Neut 4.5 X10 3/uL Normal 2.0-7.7 [facility] Comment on above: Performed By: #### L 503.7505, L501.4021 #### [facility] [address] [place], [address] Basophils/100 WBC (Bld) 1.4 % High 0-1 [facility] Comment on above: Performed By: #### L 503.7505, L501.4021 #### [facility] [address] [place], [address] Eosinophils/100 WBC (Bld) 2.5 % Normal 0-5 [facility] Comment on above: Performed By: #### L 503.7505, L501.4021 #### [facility] [address] [place], [address] Erythrocyte distribution width (RBC) [Ratio] 12.0 % Normal 11.6-14.6 [facility] Comment on above: Performed By: #### L 503.7505, L501.4021 #### [facility] [address] [place], [address] Hematocrit (Bld) [Volume fraction] 36.3 % Low 40-54 [facility] Comment on above: Performed By: #### L 503.7505, L501.4021 #### [facility] [address] [place], [address] Hemoglobin (Bld) [Mass/Vol] 12.7 g/dL Low 13.0-16.5 [facility] Comment on above: Performed By: #### L 503.7505, L501.4021 #### [facility] [address] [place], [address] IG% 0.400 Normal 0.0-0.9 [facility] Comment on above: Result Comment: IG% - Immature Granulocytes (promyelocytes, myelocytes and metamyelocytes) > 1% indicates that a LEFT SHIFT is Present. Performed By: #### L 503.7505, L501.4021 #### [facility] [address] [place], [address] Lymphocytes/100 WBC (Bld) 27.4 % Normal 19-41 [facility] Comment on above: Performed By: #### L 503.7505, L501.4021 #### [facility] [address] [place], [address] MCH (RBC) [Entitic mass] 32.1 pg High 27.0-32.0 [facility] Comment on above: Performed By: #### L 503.7505, L501.4021 #### [facility] [address] [place], [address] MCHC (RBC) [Mass/Vol] 35.0 g/dL Normal 32-36 [facility] Comment on above: Performed By: #### L 503.7505, L501.4021 #### [facility] [address] [place], [address] MCV (RBC) [Entitic vol] 91.7 fL Normal 80-94 [facility] Comment on above: Performed By: #### L 503.7505, L501.4021 #### [facility] [address] [place], [address] Monocytes/100 WBC (Bld) 9.9 % Normal 0-10 [facility] Comment on above: Performed By: #### L 503.7505, L501.4021 #### [facility] [address] [place], [address] Neutrophils/100 WBC (Bld) 58.4 % Normal 47-70 [facility] Comment on above: Performed By: #### L 503.7505, L501.4021 #### [facility] [address] [place], [address] Nucleated RBC (Bld) [#/Vol] 0 10*3/uL Normal 0-5 [facility] Comment on above: Performed By: #### L 503.7505, L501.4021 #### [facility] [address] [place], [address] Platelet mean volume (Bld) [Entitic vol] 9.8 fL Normal 6.2-12.0 [facility] Comment on above: Performed By: #### L 503.7505, L501.4021 #### [facility] [address] [place], [address] Platelets (Bld) [#/Vol] 156 10*3/uL Normal 150-450 [facility] Comment on above: Performed By: #### L 503.7505, L501.4021 #### [facility] [address] [place], [address] RBC (Bld) [#/Vol] 3.96 10*6/uL Low 4.6-6.2 [facility] Comment on above: Performed By: #### L 503.7505, L501.4021 #### [facility] [address] [place], [address] RDW SD 40.4 fl Normal 35.1-43.9 [facility] Comment on above: Performed By: #### L 503.7505, L501.4021 #### [facility] [address] [place], [address] WBC (Bld) [#/Vol] 7.8 10*3/uL Normal 4.4-11.[address] [facility] Comment on above: Performed By: #### L 503.7505, L501.4021 #### [facility] [address] [place], [address] Absolute Neut Normal 2.0-7.7 [facility] Comment on above: Result Comment: Alexy lopez via OM: Ordered Performed By: #### L 100.0100 #### [facility] [address] [place], [address] HCT Normal 40-54 [facility] Comment on above: Result Comment: Canc elled via OM: MD Ordered Performed By: #### L 100.0100 #### [facility] [address] [place], [address] HGB Normal 13.0-16.5 [facility] Comment on above: Result Comment: Canc elled via OM: MD Ordered Performed By: #### L 100.0100 #### [facility] [address] [place], [address] MCH Normal 27.0-32.0 [facility] Comment on above: Result Comment: Canc elled via OM: MD Ordered Performed By: #### L 100.0100 #### [facility] [address] [place], [address] MCHC Normal 32-36 [facility] Comment on above: Result Comment: Canc elled via OM: MD Ordered Performed By: #### L 100.0100 #### [facility] [address] [place], [address] MCV Normal 80-94 [facility] Comment on above: Result Comment: Canc elled via OM: MD Ordered Performed By: #### L 100.0100 #### [facility] [address] [place], [address] NEUT% Normal 47-70 [facility] Comment on above: Result Comment: Canc elled via OM: MD Ordered Performed By: #### L 100.0100 #### [facility] [address] [place], [address] PLT Normal 150-450 [facility] Comment on above: Result Comment: Canc elled via OM: MD Ordered Performed By: #### L 100.0100 #### [facility] [address] [place], [address] RBC Normal 4.6-6.2 [facility] Comment on above: Result Comment: Canc elled via OM: MD Ordered Performed By: #### L 100.0100 #### [facility] [address] [place], [address] RDW CV Normal 11.6-14.6 [facility] Comment on above: Result Comment: Canc elled via OM: MD Ordered Performed By: #### L 100.0100 #### [facility] [address] [place], [address] RDW SD Normal 35.1-43.9 [facility] Comment on above: Result Comment: Canc elled via OM: MD Ordered Performed By: #### L 100.0100 #### [facility] [address] [place], [address] WBC Normal 4.4-11.0 [facility] Comment on above: Result Comment: Canc elled via OM: MD Ordered Performed By: #### L 100.0100 #### [facility] [address] [place], [address] Carbon dioxide, total [Moles /volume] in Central venous bloodOrdered By: Rigo Haile on 04-26-2025 CO2 [Moles/Vol] 21.8 mmol/L 21.0-32.0 [facility] Chest PA and Lateralon 04-26 Chest PA and Lateral [facility] [address] [place] [address] Chest PA and Lateral MR#: [id number] Acct: [id number] Name: VINCENT MADDEN Rep #: [id number] : 1960 M 64 From: Michael Jackson MD PCP: Care Physician,No Primary Status: REG ER Study: Chest PA and Lateral Date of Exam: 04/26/25 Exam# [id number] Ordering Dr: Rigo Haile DO PROCEDURE: CHEST PA AND LATERAL 04/26/2025 REASON FOR EXAM: SOB TECHNIQUE: CHEST PA AND LATERAL COMPARISON: None. FINDINGS: Devices: Left chest wall multilead ICD, appears appropriately positioned. Lungs/Pleura: Mild pulmonary vascular congestion and evidence of interstitial edema. No pleural effusion. No focal airspace consolidation. No pneumothorax. Heart/Mediastinum: Mild cardiomegaly. Calcification of the aortic arch. Bones/Soft tissues: Mild degenerative changes of the spine and bilateral AC joints. RAD/Chest PA and Lateral IMPRESSION: Mild cardiomegaly with vascular congestion and probable interstitial edema. No focal airspace consolidation, or pleural effusion. Reading Location: [id number] CC: Dr. Rigo Haile, DO; No Primary Care Physician Transportation Planning Engineer: Signed Normal [facility] Chloride assayOrdered By: Rayray Haile on 04-26-2025 Chloride [Moles/Vol] 102 mmol/L 98-108 [facility] Comprehensive Metabolic Prof ilon 04-26-2025 Albumin [Mass/Vol] 4.3 g/dL Normal 3.4-4.[address] [facility] Comment on above: Performed By: #### L 503.7505, L501.4021 #### [facility] [address] [place], [address] Albumin/Globulin [Mass ratio] 1.4 {ratio} Normal 0.9-2.4 [facility] Comment on above: Performed By: #### L 503.7505, L501.4021 #### [facility] [address] [place], [address] ALK PHOS 46 U/L Normal 40-129 [facility] Comment on above: Performed By: #### L 503.7505, L501.4021 #### [facility] [address] [place], [address] ALT [Catalytic activity/Vol] 35 U/L Normal <=46 [facility] Comment on above: Performed By: #### L 503.7505, L501.4021 #### [facility] [address] [place], [address] AST [Catalytic activity/Vol] 27 U/L Normal <=37 [facility] Comment on above: Result Comment: Hemo lysis present, Results??could be affected. ?? Performed By: #### L 503.7505, L501.4021 #### [facility] [address] [place], [address] Bilirubin [Mass/Vol] 0.43 mg/dL Normal 0.00-1.30 [facility] Comment on above: Performed By: #### L 503.7505, L501.4021 #### [facility] [address] [place], [address] BUN/CRE 19.6 RATIO Normal 10-20 [facility] Comment on above: Performed By: #### L 503.7505, L501.4021 #### [facility] [address] [place], [address] Calcium [Mass/Vol] 9.5 mg/dL Normal 7.6-11.[address] [facility] Comment on above: Performed By: #### L 503.7505, L501.4021 #### [facility] [address] [place], [address] Chloride [Moles/Vol] 102 mmol/L Normal 98-108 [facility] Comment on above: Performed By: #### L 503.7505, L501.4021 #### [facility] [address] [place], [address] CO2 [Moles/Vol] 21.8 mmol/L Normal 21.0-32.0 [facility] Comment on above: Performed By: #### L 503.7505, L501.4021 #### [facility] [address] [place], [address] Creatinine [Mass/Vol] 1.35 mg/dL High 0.70-1.20 [facility] Comment on above: Performed By: #### L 503.7505, L501.4021 #### [facility] [address] [place], [address] ECRCL 60.52 ml/min Normal 50-250 [facility] Comment on above: Performed By: #### L 503.7505, L501.4021 #### [facility] [address] [place], [address] GAP 12 Normal 5-15 [facility] Comment on above: Performed By: #### L 503.7505, L501.4021 #### [facility] [address] [place], [address] GFR/1.73 sq M.predicted among non-blacks MDRD (S/P/Bld) [Vol rate/Area] 58 mL/min/{1.73_m2} Low >60 [facility] Comment on above: Result Comment: mL/m in/1.73m2 CKD-EPI Creatinine Equation (2020) Performed By: #### L 503.7505, L501.4021 #### [facility] [address] [place], [address] Globulin (S) [Mass/Vol] 3.0 g/dL Normal 2.2-4.2 [facility] Comment on above: Performed By: #### L 503.7505, L501.4021 #### [facility] [address] [place], [address] Glucose [Mass/Vol] 102 mg/dL High 70-[address] [facility] Comment on above: Performed By: #### L 503.7505, L501.4021 #### [facility] [address] [place], [address] Potassium [Moles/Vol] 4.4 mmol/L Normal 3.3-5.1 [facility] Comment on above: Result Comment: Hemo lysis present, Results??could be affected. ?? Performed By: #### L 503.7505, L501.4021 #### [facility] [address] [place], [address] Sodium [Moles/Vol] 135 mmol/L Normal 133-[address] [facility] Comment on above: Performed By: #### L 503.7505, L501.4021 #### [facility] [address] [place], [address] T PROT 7.3 g/dL Normal 5.9-8.4 [facility] Comment on above: Performed By: #### L 503.7505, L501.4021 #### [facility] [address] [place], [address] Urea nitrogen [Mass/Vol] 27 mg/dL High 4-19 [facility] Comment on above: Performed By: #### L 503.7505, L501.4021 #### [facility] [address] [place], [address] D-Dimer Quantitative (DVT/PE )on 04-26-2025 D-DIMER QUANT 0.33 FEU/ug/m Normal 0.27-0.49 [facility] Comment on above: Result Comment: NORM AL D-Dimer level (<0.50) indicates no DVT or PE. Performed By: #### L 300.8000 #### [facility] [address] [place], [address] Emergency Department Summary on 04-26-2025 Emergency Department Summary [facility] Medical Records Department [address] [place] [address] Emergency Department Summary 04/26/25 MR#: [id number] Acct: [id number] Name: VINCENT MADDEN Rep #: [id number] : 1960 64 From: Rigo Haile DO PCP: Care Physician,No Primary Status:REG ER Location: ED HPI History of Present Illness Chief Complaint: General Illness Narrative Narrative: Patient is a 64-year-old male with past medical history of CAD, CHF, recent pacemaker placement in May, cardiomyopathy, hypertension who presents to the emergency department with a chief complaint of generalized weakness, shortness of breath with exertion, abdominal pain and diarrhea. Patient states that he has not been feeling well for the last several days and notes that he is getting worsening shortness of breath with exertion. Patient family bedside states they wanted him further evaluated since he was seem to be worsening. [facility] Medical History H pylori ulcer Rectal polyp Rectal bleeding GERD (gastroesophageal reflux disease) HTN (hypertension) Hypertriglyceridemia Hernia CAD (coronary atherosclerotic disease) Palpitation Cardiomyopathy LBBB (left bundle branch block) Pacemaker Home Medications ???Medication ???Instructions ???Recorded ???Last Taken ???Type ondansetron 4 mg disintegrating 4 mg PO Q6H PRN nausea and 5 Unknown Rx tablet vomiting #20 tabs Allergy/AdvReac Type Severity Reaction Status Date / Time No Known Allergies Allergy Verified 04/26/25 14:43 Surgical History Previous back surgery Social History Smoking Status: Never smoker ROS ROS ED ROS Narrative Constitutional: Denies any fevers, chills, headaches Eyes: Denies double vision Cardiovascular: Denies chest pain Respiratory: Complains of shortness of breath as noted above as well as a cough Abdomen: Complains of abdominal pain nausea vomiting as noted above as well as diarrhea denies dark tarry stools : Denies any urinary symptoms Neurological: Denies numbness, wheeze, tingling Musculoskeletal: Denies back pain Skin: Denies any rashes or lesions EXAM Physical Exam Narrative Exam Narrative: General: Patient was lying in bed rest comfortably did not appear to be acute distress Head: Atraumatic, normocephalic Eyes: PERRL bilaterally, EOMI by, no conjunctival injection noted Neck: Soft, supple, trachea midline Cardiovascular: Regular rate and rhythm no murmurs gallops rubs noted Respiratory: Clear to auscultation bilaterally Abdomen: Patient does have epigastric tenderness on exam no rebound or guarding on exam Extremities: +5/5 strength noted in the bilateral upper and lower extremities Neurological: Patient follow commands knew that he was at [facility] years 2024 Skin: Warm, dry, intact no rashes lesions noted Const Vital Signs: 04/26/25 14:41 04/26/25 15:50 04/26/25 16:20 Temperature 97.4 F L Temperature Source Oral Pulse Rate 77 Respiratory Rate 16 Respiratory Effort Short of Breath Blood Pressure 117/70 Blood Pressure Mean 85 Pulse Ox 100 Oxygen Delivery Method Room Air Room Air 04/26/25 16:40 04/26/25 18:00 04/26/25 20:00 Temperature Temperature Source Pulse Rate 67 63 64 Respiratory Rate 18 16 19 H Respiratory Effort Blood Pressure 119/69 Blood Pressure Mean 85 Pulse Ox 99 99 100 Oxygen Delivery Method Room Air Room Air MDM MDM MDM Narrative Medical decision making narrative: Patient is a 64-year-old male who presented to the emerged part with a chief complaint of dyspnea on exertion, abdominal pain nausea vomiting. On the differential diagnosis includes but not limited to CHF exacerbation, ACS, pneumonia, pancreatitis, cholecystitis, viral gastroenteritis. Once workup is obtained reviewed he will be reevaluated. Patient be given IV fluids morphine Zofran. Nursing notified me that he did refuse his morphine. Patient's CBC was reviewed and showed no evidence leukocytosis white blood count was 7.8, he was 12.7, platelet count of 156. Patient's sodium was 135, potassium normal 4.4, creatinine was elevated 1.35, AST and ALT were 27 and 35 respectively. Patient's troponin was 12 with a delta troponin of 11, EKG reviewed showed atrial sensed ventricular paced rhythm with a rate of 60 bpm no Sgarbossa criteria were met. Patient's proBNP normal less than 36, lipase normal at 47, urinalysis reviewed showed no evidence of infection. Patient chest x-ray reviewed by myself by radiology showed mild cardiomegaly with vascular congestion and probable interstitial edema no consolidation or pleural effusion noted. Patient (more content not included)... Normal [facility] Eosinophil percentageOrdered By: Rigo Haile on 04-26-2025 Eosinophils/100 WBC (Bld) 2.5 % 0-5 [facility] Erythrocyte distribution wid th ratioOrdered By: Rigo Haile on 04-26-2025 Erythrocyte distribution width (RBC) [Ratio] 12.0 % 11.6-14.6 [facility] Erythrocyte distribution wid th standard deviationOrdered By: Rigo Haile on 04-26-2025 Erythrocyte distribution width (RBC) [Ratio] 40.4 fl 35.1-43.9 [facility] Glomerular filtration rate ( GFR) estimation/1.73 sq m using serum, plasma, or whole bOrdered By: Rigo Haile on 04-26-2025 GFR/1.73 sq M.predicted among non-blacks MDRD (S/P/Bld) [Vol rate/Area] 58 mL/min/{1.73_m2} Low >60 [facility] Comment on above: mL/min/1.73m2 CKD-EP I Creatinine Equation (2020) Hematocrit Auto (Bld) [Volum e fraction]Ordered By: Rigo Haile on 04-26-2025 Hematocrit (Bld) [Volume fraction] 36.3 % Low 40-54 [facility] Hemoglobin measurementOrdere d By: Rigo Haile on 04-26-2025 Hemoglobin (Bld) [Mass/Vol] 12.7 g/dL Low 13.0-16.5 [facility] Immature granulocytes/100 WB C Auto (Bld)Ordered By: Rigo Haile on 04-26-2025 Immature granulocytes/100 WBC (Bld) 0.400 % 0.0-0.9 [facility] Comment on above: IG% - Immature Granu locytes (promyelocytes, myelocytes and metamyelocytes) > 1% indicates that a LEFT SHIFT is Present. Ketones Test strip Ql (U)Ord ered By: Rigo Haile on 04-26-2025 Ketones Ql (U) Negative Negative [facility] L499.0042on 04-26-2025 Trop T High Sen 11 ng/L Normal <=22 [facility] Comment on above: Result Comment: Hemo lysis present, Results??could be affected. ?? Performed By: #### L 499.0042 #### [facility] [address] [place], [address] L499.0043on 04-26-2025 Trop T High Sen Normal <=22 [facility] Comment on above: Result Comment: Alexy lopez via OM: Ordered Performed By: #### L 499.0043 #### [facility] [address] [place], [address] L501.4021on 04-26-2025 Trop T High Sen 12 ng/L Normal <=22 [facility] Comment on above: Performed By: #### L 503.7505, L501.4021 #### [facility] [address] [place], [address] L503.7505on 04-26-2025 proBNP < 36 Normal <=900 [facility] Comment on above: Result Comment: Hear t Failure Unlikely: < 300 pg/mL Heart Failure Likely < 50 Years: > 450 pg/mL 50-75 Years: > 900 pg/mL >75 Years: > 1800 pg/mL Performed By: #### L 503.7505, L501.4021 #### [facility] [address] [place], [address] Laboratory - Chemistry and C hemistry - challengeOrdered By: Rigo Haile on 04-26-2025 AST [Catalytic activity/Vol] 27 U/L <38 [facility] Comment on above: Hemolysis present, R esults could be affected. Lipaseon 04-26-2025 Lipase [Catalytic activity/Vol] 47 U/L Normal 13-75 [facility] Comment on above: Result Comment: Plea se note: LIPASE revised reference range effective 23. New Lipase methodology. Expected to produce lower values than the previous assay method. NEW Reference Range: 13 - 75 U/L Performed By: #### L 503.7505, L501.4021 #### [facility] [address] [place], [address] Lipase measurementOrdered By : Rigo Haile on 04-26-2025 Lipase [Catalytic activity/Vol] 47 U/L 13-75 [facility] Comment on above: Please note:LIPASE r evised reference range effective 23. New Lipase methodology. Expected to produce lower values than the previous assay method. NEW Reference Range: 13 - 75 U/L MCV (mean corpuscular volume ) determinationOrdered By: Rigo Haile on 04-26-2025 MCV (RBC) [Entitic vol] 91.7 fL 80-94 [facility] Mean corpuscular hemoglobin (MCH) determinationOrdered By: Rigo Haile on 04-26-2025 MCH (RBC) [Entitic mass] 32.1 pg High 27.0-32.0 [facility] Mean corpuscular hemoglobin concentration (MCHC) determinationOrdered By: Rigo Haile on 04-26-2025 MCHC (RBC) [Mass/Vol] 35.0 g/dL 32-36 [facility] Mean platelet volume determi nationOrdered By: Rigo Haile on 04-26-2025 Platelet mean volume (Bld) [Entitic vol] 9.8 fL 6.2-12.0 [facility] Microscopic analysis of urin e for red blood cells (RBC)Ordered By: Rigo Haile on 04-26-2025 Microscopic analysis of urine for red blood cells (RBC) 0-5 SEEN /hpf 0-5 [facility] Monocyte percentageOrdered B y: Rigo Haile on 04-26-2025 Monocytes/100 WBC (Bld) 9.9 % 0-10 [facility] Mucus LM Ql (Urine sed)Order ed By: Rigo Haile on 04-26-2025 Mucus Ql (Urine sed) RARE /hpf [facility] Natriuretic peptide.B prohor shivani N-Terminal [Mass/volume] in Serum or PlasmaOrdered By: Rigo Haile on 04-26-2025 Natriuretic peptide.B prohormone N-Terminal [Mass/Vol] < 36 pg/mL <900 [facility] Comment on above: Heart Failure Unlike ly: < 300 pg/mLHeart Failure Likely< 50 Years: > 450 pg/mL50-75 Years: > 900 pg/mL>75 Years: > 1800 pg/mL Neutrophil percentageOrdered By: Rigo Haile on 04-26-2025 Neutrophils/100 WBC (Bld) 58.4 % 47-70 [facility] Nitrite Test strip Ql (U)Ord ered By: Rigo Haile on 04-26-2025 Nitrite Ql (U) Negative Negative [facility] Nucleated red blood cell per centageOrdered By: Rigo Haile on 04-26-2025 Nucleated RBC/100 WBC (Bld) [Ratio] 0 % 0-5 [facility] Platelet countOrdered By: Rayray Haile on 04-26-2025 Platelets (Bld) [#/Vol] 156 10*3/uL 150-450 [facility] Potassium measurement (mass/ volume)Ordered By: Rigo Haile on 04-26-2025 Potassium (Unsp spec) [Mass/Vol] 4.4 mmol/L 3.3-5.1 [facility] Comment on above: Hemolysis present, R esults could be affected. Protein Test strip Ql (U)Ord ered By: Rigo Haile on 04-26-2025 Protein Ql (U) 30 mg/dl High Negative [facility] RBC Auto (Bld) [#/Vol]Ordere d By: Rigo Haile on 04-26-2025 RBC (Bld) [#/Vol] 3.96 10*6/uL Low 4.6-6.2 [facility] Serum creatinine measurement (mass/volume)Ordered By: Rigo Haile on 04-26-2025 Creatinine [Mass/Vol] 1.35 mg/dL High 0.70-1.20 [facility] Serum globulin measurementOr dered By: Rigo Haile on 04-26-2025 Globulin (S) [Mass/Vol] 3.0 g/dL 2.2-4.2 [facility] Serum glucose measurement (m ass/volume)Ordered By: Rigo Haile on 04-26-2025 Glucose [Mass/Vol] 102 mg/dL High 70-[address] [facility] Serum or plasma alanine pearson otransferase (ALT) measurementOrdered By: Rigo Haile on 04-26-2025 ALT [Catalytic activity/Vol] 35 U/L <47 [facility] Serum or plasma albumin daria urement (mass/volume)Ordered By: Rgio Haile on 04-26-2025 Albumin [Mass/Vol] 4.3 g/dL 3.4-4.[address] [facility] Serum or plasma albumin/glob ulin mass ratioOrdered By: Rigo Haile on 04-26-2025 Albumin/Globulin [Mass ratio] 1.4 {ratio} 0.9-2.4 [facility] Serum or plasma alkaline betzy sphatase measurementOrdered By: Rigo Haile on 04-26-2025 ALP [Catalytic activity/Vol] 46 U/L 40-129 [facility] Serum or plasma calcium daria urement (mass/volume)Ordered By: Rigo Haile on 04-26-2025 Calcium [Mass/Vol] 9.5 mg/dL 7.6-11.[address] [facility] Serum or plasma urea nitroge n measurement (mass/volume)Ordered By: Rigo Haile on 04-26-2025 Urea nitrogen [Mass/Vol] 27 mg/dL High 4-19 [facility] Sodium levelOrdered By: Gino Haile on 04-26-2025 Sodium [Moles/Vol] 135 mmol/L 133-[address] [facility] Squamous epithelial cells de tection in urine sediment by light microscopyOrdered By: Rigo Haile on 04-26-2025 Epithelial cells.squamous LM Ql (Urine sed) 0 SEEN /hpf 0-5 [facility] Total proteinOrdered By: Bianca Haile on 04-26-2025 Protein [Mass/Vol] 7.3 g/dL 5.9-8.[address] [facility] Troponin T.cardiac [Mass/vol ume] in Serum or Plasma by High sensitivity methodOrdered By: Rigo Haile on 04-26-2025 Troponin T.cardiac High sensitivity method [Mass/Vol] 11 ng/L <22 [facility] Comment on above: Hemolysis present, R esults could be affected. Troponin T.cardiac High sensitivity method [Mass/Vol] 12 ng/L <22 [facility] Urinalysis, Completeon 04-26 Mucus Ql (Urine sed) RARE Normal [facility] Comment on above: Order Comment: CYNTHIA CTOR TO SPECIFY Performed By: #### L 400.0001 #### [facility] [address] [place], [address] RBC 0-5 SEEN Normal 0-5 [facility] Comment on above: Order Comment: CYNTHIA CTOR TO SPECIFY Performed By: #### L 400.0001 #### [facility] [address] [place], [address] WBC 0-5 SEEN Normal 0-5 [facility] Comment on above: Order Comment: CYNTHIA CTOR TO SPECIFY Performed By: #### L 400.0001 #### [facility] [address] [place], [address] BACTERIA 0 SEEN Normal None Seen [facility] Comment on above: Order Comment: CYNTHIA CTOR TO SPECIFY Performed By: #### L 400.0001 #### [facility] [address] [place], [address] EPI,SQUAMOUS 0 SEEN Normal 0-5 [facility] Comment on above: Order Comment: CYNTHIA CTOR TO SPECIFY Performed By: #### L 400.0001 #### [facility] [address] [place], [address] Urine clarityOrdered By: Bianca Haile on 04-26-2025 Clarity (U) Clear Clear [facility] Urine color determinationOrd ered By: Rigo Haile on 04-26-2025 Color (U) Yellow Yellow [facility] Urine glucose detectionOrder ed By: Rigo Haile on 04-26-2025 Glucose Ql (U) Normal mg/dl Normal [facility] Urine leukocyte esterase det ection by dipstickOrdered By: Rigo Haile on 04-26-2025 Leukocyte esterase Test strip Ql (U) Negative Negative [facility] Urine pHOrdered By: Rigo boucher on 04-26-2025 pH (U) 6.0 [pH] 5.0 - 8.0 [facility] Urine sediment bacteria coun t by microscopy (number/high power field)Ordered By: Rigo Haile on 04-26-2025 Bacteria LM.HPF (Urine sed) [#/Area] 0 /[HPF] None Seen [facility] Urine specific gravity measu rementOrdered By: Rigo Hiale on 04-26-2025 Specific gravity (U) [Rel density] 1.015 1.002-1.030 [facility] Urine urobilinogen measureme ntOrdered By: Rigo Haile on 04-26-2025 Urobilinogen Ql (U) 1 mg/dl High Normal [facility] White blood cell (WBC) count Ordered By: Rigo Haile on 04-26-2025 WBC (Bld) [#/Vol] 7.8 10*3/uL 4.4-11.[address] [facility] White blood cell countOrdere d By: Rigo Haile on 04-26-2025 White blood cell count 0-5 SEEN /hpf 0-5 [facility] CNPNon 04-25-2025 [facility] Tele[facility] ([facility]) VINCENT MADDEN ([id number]) 1960 M Date Time Provider Department 04/25/25 Fabio MONTOYA [facility] During your visit today, we recorded the following information about you: Fabio Montoya, RN 04/25/2025 8:22 AM Signed Situation: Patient with c/o Shortness of Breath and swelling. 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 Breathing issues: yes SOB Difficulty breathing when lying flat: yes Swelling/where: bilateral legs/abdomen Medication Adherence: yes, he took an extra Lasix 40 mg for 2 days without results Dietary Indiscretion: reinforced Fluid Intake: may be excess Recommendations: Will route to ELO for further recommendations Suzy Mac APRN.[facility] 04/25/2025 8:43 AM Signed Agree if patient is calling here to be seen for swelling (abdomen or legs) and weight gain please place him on the schedule. Thank you Fabio Montoya RN 04/25/2025 10:45 AM Signed Patient scheduled for 05/01/25, further enc possible follow up with PCP, daughter verbalized understanding. Allergies As of Date: 04/25/2025 Noted Allergy Reaction BUPRENORPHINE 10/04/2020 14 - Other: See Comments Date Reviewed: 04/24/2025 Reviewed by: Arely Burris RN - Fully Assessed Reason for Visit: Patient Update [1234] Prescriptions as of 04/25/2025 - spironolactone (ALDACTONE) 25 mg tablet Take 1 tablet by mouth once daily. - rosuvastatin (CRESTOR) 20 mg tablet Take 1 tablet by mouth daily at bedtime. - lisinopril (ZESTRIL) 20 mg tablet Take 1 tablet by mouth two times a day. - furosemide (LASIX) 40 mg tablet Take 1 tablet by mouth once daily. - carvedilol (COREG) 12.5 mg tablet Take 1 tablet by mouth two times a day. - empagliflozin (JARDIANCE) 10 mg tablet Take 1 tablet by mouth daily with breakfast. - cyclobenzaprine (FLEXERIL) 5 mg tablet Take 1 tablet by mouth three times a day as needed for muscle spasm. - Tadalafil (CIALIS) 5 mg tablet Take 1 tablet by mouth once daily. Take 1 tablet by mouth daily - esomeprazole (NEXIUM) 40 mg capsule Take 1 capsule by mouth once daily. - diclofenac (VOLTAREN) 1 % topical gel Apply 2 g to affected area four times daily. - meclizine (ANTIVERT) 25 mg tab Take 1 tablet by mouth three times daily as needed. - topiramate (TOPAMAX) 100 mg tablet Take 1 tablet by mouth daily at bedtime. - aspirin, enteric coated (ADULT LOW DOSE ASPIRIN) 81 mg EC tablet Take 1 tablet by mouth once daily. Problem List As Of Date 04/25/2025 Noted Resolved Systolic congestive heart failure, NYHA class 1*12/05/2012 Obesity [E66.9] 12/05/2012 08/09/2021 ICD (implantable cardioverter-defibril lator) in*06/04/2016 Dilated cardiomyopathy (HCC) [I42.0] 12/02/2012 Palpitations [R00.2] Coronary arteriosclerosis [I25.10] LBBB (left bundle branch block) [I44.7] Hypertriglyceridemia [E78.1] 02/11/2017 History of colonic polyps [Z86.0100] 08/30/2017 08/09/2021 Hiatal hernia with GERD [K44.9, K21.9] 02/10/2018 Carpal tunnel syndrome of left wrist [G56.02] 09/28/2018 Tendinitis of right rotator cuff [M75.81] 09/02/2020 08/09/2021 Lumbosacral radiculopathy [M54.17] 08/09/2021 Sciatica [M54.30] 08/09/2021 Displacement of lumbar intervertebral disc with*08/09/2021 Athscl heart disease of [place] coronary artery *02/26/2016 Chronic HFrEF (heart failure with reduced eject*11/19/2022 Preop examination [Z01.818] 11/19/2023 Gastroesophageal reflux disease [K21.9] 11/19/2023 Rectal bleeding [K62.5] 11/19/2023 HTN (hypertension) [I10] 11/19/2023 Elective replacement of Mdt Biv implantable car*05/30/2024 Encounter Status:Closed by Fabio MONTOYA on 04/25/25 Normal [facility] ED NOTEon 04-25-2025 ED NOTE HNO ID: [id number] Author: FRANCESCO MENDEZ RN Service: Emergency Medicine Author Type: Registered Nurse Type: ED Notes Filed: 04/25/2025 00:02 Note Text: Patient NA x2 for re vitals at this time. Normal [facility] Basic metabolic 2000 panelon 04-24-2025 Anion gap [Moles/Vol] 12 mmol/L Normal 8-15 [facility] Comment on above: Order Comment: Speci men Type: BLOOD SPECIMENOrdering Facility: [facility] Address: [address] [place] [address] Performed By: #### 2 4321-2, 60660-0, 95721-1 ####[facility] LABORATORYCLIA [id number] [place] [address] [place] Calcium [Mass/Vol] 9.5 mg/dL Normal 8.5-10.2 [facility] Comment on above: Order Comment: Speci men Type: BLOOD SPECIMENOrdering Facility: [facility] Address: [address] [place] [address] Performed By: #### 2 4321-2, 32141-7, ####[facility] LABORATORYCLIA [id number] [place] [address] [place] Chloride [Moles/Vol] 98 mmol/L Normal 98-107 [facility] Comment on above: Order Comment: Speci men Type: BLOOD SPECIMENOrdering Facility: [facility] Address: [address] [place] [address] Performed By: #### 2 4321-2, 95027-4, ####[facility] LABORATORYCLIA [id number] [address] STATES OF [facility] CO2 [Moles/Vol] 24 mmol/L Normal 22-30 [facility] Comment on above: Order Comment: Speci men Type: BLOOD SPECIMENOrdering Facility: [facility] Address: [address] [place] [address] Performed By: #### 2 4321-2, 58608-4, ####[facility] LABORATORYCLIA [id number] [place] [address] [place] Creatinine [Mass/Vol] 1.49 mg/dL High 0.73-1.22 [facility] Comment on above: Order Comment: Speci men Type: BLOOD SPECIMENOrdering Facility: [facility] Address: [address] [place] [address] Performed By: #### 2 4321-2, 50588-2, ####[facility] LABORATORYCLIA [id number] [address] Creatinine and Glomerular filtration rate.predicted panel (S/P/Bld) 52 mL/min/1.73m??? Low >=60 [facility] Comment on above: Order Comment: Speci men Type: BLOOD SPECIMENOrdering Facility: [facility] Address: [address] [place] [place] [id number] Result Comment: Jeanne mated Glomerular Filtration Rate (eGFR) is calculated using the 2020 CKD-EPI creatinine equation. This equation utilizes serum creatinine, sex, and age as parameters. The creatinine assay has traceable calibration to isotope dilution-mass spectrometry. Refer to KDIGO guidelines for clinical interpretation. In patients with unstable renal function, e.g. those with acute kidney injury, the eGFR may not accurately reflect actual GFR. Performed By: #### 2 4321-2, 93643-0, ####[facility] LABORATORYCLIA [id number] [place] [address] [place] Glucose [Mass/Vol] 91 mg/dL Normal 74-99 [facility] Comment on above: Order Comment: Karlene nina Type: BLOOD SPECIMENOrdering Facility: [facility] Address: [address] [place] [address] Result Comment: The [place] Diabetes Association (ADA) provides guidance for cutoff values for fasting glucose and random glucose. The ADA defines fasting as no caloric intake for at least 8 hours. Fasting plasma glucose results between 100 to 125 mg/dL indicate increased risk for diabetes (prediabetes). Fasting plasma glucose results greater than or equal to 126 mg/dL meet the criteria for diagnosis of diabetes. In the absence of unequivocal hyperglycemia, results should be confirmed by repeat testing. In a patient with classic symptoms of hyperglycemia or hyperglycemic crisis, random plasma glucose results greater than or equal to 200 mg/dL meet the criteria for diagnosis of diabetes. Reference: Standards of Medical Care in Diabetes 2016, [place] [employer] Association. Diabetes Care. 2016.39(Suppl 1). Performed By: #### 2 4321-2, 73183-3, 17578-8 ####[facility] LABORATORYCLIA [id number] [place] [id number] [place] Potassium [Moles/Vol] 4.9 mmol/L Normal 3.7-5.1 [facility] Comment on above: Order Comment: Karl[facility] Type: BLOOD SPECIMENOrdering Facility: [facility] Address: [address] [place] [address] Performed By: #### 2 4321-2, 51902-9, 11350-5 ####[facility] LABORATORYCLIA [id number] [place] [address] [place] Sodium [Moles/Vol] 134 mmol/L Low 136-144 [facility] Comment on above: Order Comment: Speci men Type: BLOOD SPECIMENOrdering Facility: [facility] Address: [address] [place] [address] Performed By: #### 2 4321-2, 23614-0, 66003-5 ####[facility] LABORATORYCLIA [id number] [place] [address] [place] Urea nitrogen [Mass/Vol] 32 mg/dL High 9-24 [facility] Comment on above: Order Comment: Speci men Type: BLOOD SPECIMENOrdering Facility: [facility] Address: [address] [place] [address] Performed By: #### 2 4321-2, 67870-9, 36513-2 ####[facility] LABORATORYCLIA [id number] [place] [address] [place] CBC W Auto Differential pane l (Bld)on 04-24-2025 Basophils (Bld) [#/Vol] 0.11 10*3/uL High <0.11 [facility] Comment on above: Order Comment: Speci men Type: BLOOD SPECIMENOrdering Facility: [facility] Address: [address] [place] [address] Performed By: #### 5 7021-8 ####[facility] LABORATORYCLIA [id number] [address] [place] Basophils/100 WBC (Bld) 1.1 % Normal A [facility] Comment on above: Order Comment: Speci men Type: BLOOD SPECIMENOrdering Facility: [facility] Address: [address] [place] [address] Performed By: #### 5 7021-8 ####[facility] LABORATORYCLIA [id number] [address] STATES OF [facility] Differential cell count method Nom (Bld) Auto Normal [facility] Comment on above: Order Comment: Speci men Type: BLOOD SPECIMENOrdering Facility: [facility] Address: [address] [place] [address] Performed By: #### 5 7021-8 ####[facility] LABORATORYCLIA [id number] [address] Eosinophils (Bld) [#/Vol] 0.21 10*3/uL Normal <0.46 [facility] Comment on above: Order Comment: Speci men Type: BLOOD SPECIMENOrdering Facility: [facility] Address: [address] [place] [address] Performed By: #### 5 7021-8 ####[facility] LABORATORYCLIA [id number] [address] Eosinophils/100 WBC (Bld) 2.1 % Normal [facility] Comment on above: Order Comment: Speci men Type: BLOOD SPECIMENOrdering Facility: [facility] Address: [address] [place] [address] Performed By: #### 5 7021-8 ####[facility] LABORATORYCLIA [id number] [address] Erythrocyte distribution width (RBC) [Ratio] 11.9 % Normal 11.5-15.0 [facility] Comment on above: Order Comment: Speci men Type: BLOOD SPECIMENOrdering Facility: [facility] Address: [address] [place] [address] Performed By: #### 5 7021-8 ####[facility] LABORATORYCLIA [id number] [address] Hematocrit (Bld) [Volume fraction] 39.0 % Normal 39.0-51.0 [facility] Comment on above: Order Comment: Speci men Type: BLOOD SPECIMENOrdering Facility: [facility] Address: [address] [place] [address] Performed By: #### 5 7021-8 ####[facility] LABORATORYCLIA [id number] [place] [address] [place] Hemoglobin (Bld) [Mass/Vol] 13.5 g/dL Normal 13.0-17.0 [facility] Comment on above: Order Comment: Speci men Type: BLOOD SPECIMENOrdering Facility: [facility] Address: [address] [place] [address] Performed By: #### 5 7021-8 ####[facility]ORATORYCLIA [id number] [place] [address] [place] Immature granulocytes (Bld) [#/Vol] 0.03 10*3/uL Normal <0.10 [facility] Comment on above: Order Comment: Speci men Type: BLOOD SPECIMENOrdering Facility: [facility] Address: [address] [place] [address] Performed By: #### 5 7021-8 ####[facility] LABORATORYCLIA [id number] [address] [place] Immature granulocytes/100 WBC (Bld) 0.3 % Normal [facility] Comment on above: Order Comment: Speci men Type: BLOOD SPECIMENOrdering Facility: [facility] Address: [address] [place] [address] Performed By: #### 5 7021-8 ####[facility] LABORATORYCLIA [id number] [place] [address] [place] Lymphocytes (Bld) [#/Vol] 2.35 10*3/uL Normal 1.00-4.00 [facility] Comment on above: Order Comment: Speci men Type: BLOOD SPECIMENOrdering Facility: [facility] Address: [address] [place] [address] Performed By: #### 5 7021-8 ####[facility]ATORYCLIA [id number] [address] [place] Lymphocytes/100 WBC (Bld) 23.2 % Normal [facility] Comment on above: Order Comment: Speci men Type: BLOOD SPECIMENOrdering Facility: [facility] Address: [address] [place] [address] Performed By: #### 5 7021-8 ####[facility] LABORATORYCLIA [id number] [address] STATES OF [facility] MCH (RBC) [Entitic mass] 32.4 pg Normal 26.0-34.0 [facility] Comment on above: Order Comment: Speci men Type: BLOOD SPECIMENOrdering Facility: [facility] Address: [address] [place] [address] Performed By: #### 5 7021-8 ####[facility] LABORATORYCLIA [id number] [address] [place] MCHC (RBC) [Mass/Vol] 34.6 g/dL Normal 30.5-36.0 [facility] Comment on above: Order Comment: Speci men Type: BLOOD SPECIMENOrdering Facility: [facility] Address: [address] [place] [address] Performed By: #### 5 7021-8 ####[facility] LABORATORYCLIA [id number] [address] MCV (RBC) [Entitic vol] 93.5 fL Normal 80.0-100.0 [facility] Comment on above: Order Comment: Speci men Type: BLOOD SPECIMENOrdering Facility: [facility] Address: [address] [place] [address] Performed By: #### 5 7021-8 ####[facility]ORATORYCLIA [id number] [address] OF [facility] Monocytes (Bld) [#/Vol] 0.93 10*3/uL High <0.87 [facility] Comment on above: Order Comment: Speci men Type: BLOOD SPECIMENOrdering Facility: [facility] Address: [address] [place] [address] Performed By: #### 5 7021-8 ####[facility] LABORATORYCLIA [id number] [address] Monocytes/100 WBC (Bld) 9.2 % Normal A [facility] Comment on above: Order Comment: Speci men Type: BLOOD SPECIMENOrdering Facility: [facility] Address: [address] [place] [address] Performed By: #### 5 7021-8 ####[facility] LABORATORYCLIA [id number] [address] [place] Neutrophils (Bld) [#/Vol] 6.48 10*3/uL Normal 1.45-7.50 [facility] Comment on above: Order Comment: Speci men Type: BLOOD SPECIMENOrdering Facility: [facility] Address: [address] [place] [address] Performed By: #### 5 7021-8 ####[facility]ORATORYCLIA [id number] [address] Neutrophils/100 WBC (Bld) 64.1 % Normal [facility] Comment on above: Order Comment: Speci men Type: BLOOD SPECIMENOrdering Facility: [facility] Address: [address] [place] [address] Performed By: #### 5 7021-8 ####[facility]ORATORYCLIA [id number] [address] [place] Nucleated RBC (Bld) [#/Vol] 10*3/uL Normal <0.01 [facility] Comment on above: Order Comment: Speci men Type: BLOOD SPECIMENOrdering Facility: [facility] Address: [address] [place] [address] Performed By: #### 5 7021-8 ####[facility]ORATORYCLIA [id number] [address] [place] Nucleated RBC/100 WBC (Bld) [Ratio] 0.0 /100 WBC Normal [facility] Comment on above: Order Comment: Speci men Type: BLOOD SPECIMENOrdering Facility: [facility] Address: [address] [place] [address] Performed By: #### 5 7021-8 ####[facility]ORATORYCLIA [id number] [address] [place] Platelet mean volume (Bld) [Entitic vol] 9.6 fL Normal 9.0-12.7 [facility] Comment on above: Order Comment: Speci men Type: BLOOD SPECIMENOrdering Facility: [facility] Address: [address] [place] [address] Performed By: #### 5 7021-8 ####[facility]ORATORYCLIA [id number] [address] Platelets (Bld) [#/Vol] 177 10*3/uL Normal 150-400 [facility] Comment on above: Order Comment: Speci men Type: BLOOD SPECIMENOrdering Facility: [facility] Address: [address] [place] [address] Performed By: #### 5 7021-8 ####[facility]ATORYCLIA [id number] [address] RBC (Bld) [#/Vol] 4.17 10*6/uL Low 4.20-6.00 [facility] Comment on above: Order Comment: Speci men Type: BLOOD SPECIMENOrdering Facility: [facility] Address: [address] [place] [address] Performed By: #### 5 7021-8 ####[facility]ATORYCLIA [id number] [address] WBC (Bld) [#/Vol] 10.11 10*3/uL Normal 3.70-11.00 [facility] Comment on above: Order Comment: Speci men Type: BLOOD SPECIMENOrdering Facility: [facility] Address: [address] [place] [address] Performed By: #### 5 7021-8 ####[facility]ORATORYCLIA [id number] [address] ECG COMPLETEon 04-24-2025 ECG COMPLETE Ventricular Rate : 6 2 BPM Atrial Rate : 62 BPM P-R Interval : 214 ms QRS Duration : 128 ms Q-T Interval : 428 ms QTC Calculation(Bazett) : 434 ms Calculated P [place] : 36 degrees Calculated R [place] : 234 degrees Calculated T [place] : 7 degrees Atrial-sensed ventricular-paced rhythm with prolonged AV conduction ABNORMAL ECG WHEN COMPARED WITH ECG OF 19-Jul-2023 10:40, VENT. RATE HAS INCREASED by 7 bpm Confirmed by ONELIA UMANA MD ([id number]) on 04/25/2025 8:34:39 AM NAME : VINCENT MADDEN PID : [id number] : 1960 Gender : Male Race : ORD : [id number] Procedure Date : Apr 24 2025 16:56:16 Edit Date : Apr 25 2025 08:34:42 Diagnosis: Atrial-sensed ventricular-paced rhythm with prolonged AV conduction ABNORMAL ECG WHEN COMPARED WITH ECG OF 19-Jul-2023 10:40, VENT. RATE HAS INCREASED by 7 bpm Confirmed by ONELIA UMANA MD ([id number]) on 04/25/2025 8:34:39 AM Test Reason : Chest Pain Location : 4 : [facility] Overread By : ONELIA UMANA MD Edited By : ONELIA UMANA MD Referred By : , Acquired by : ENOCH BURRIS Normal [facility] ED NOTEon 04-24-2025 ED NOTE HNO ID: [id number] Author: CIRO FRYE, Medic Service: ? Author Type: Medical Secretary and Pals Specialist Type: ED Notes Filed: 04/24/2025 23:49 Note Text: No answer for vitals 1st attempt. Normal [facility] ED Triage Noteon 04-24-2025 ED Triage Note HNO ID: [id number] Author: KITTY MOSER APRN.TECHNICAL SERVICES REPRESENTATIVE Service: Emergency Medicine Author Type: Nurse Practitioner Type: ED Triage Notes Filed: 04/24/2025 15:18 Note Text: ED TRIAGE PROVIDER NOTE Patient Name: Vincent Madden Service Date: 04/24/25 BRIEF HPI: This is a 64 year old male who presents to the ED with: Concern for shortness of breath. States it worsened over the last week. He was concerned that he may be retaining fluid so started taking more of his Lasix. BRIEF EXAM: NAD Awake and Alert Non labored breathing No focal neurological deficits Regular rate and rhythm lungs clear to auscultation No leg swelling on exam INITIAL WORKUP AND DECISION MAKING: Orders Placed This Encounter XR CHEST 2V FRONTAL/LAT BASIC METABOLIC PNL MAGNESIUM BLD High Sensitivity Troponin T with Reflex for ED Chest Pain CBC + DIFF ECG COMPLETE Patient was seen initially in triage by myself. Initial history brief examination was performed. Initial work-up is ordered to develop basic plan of care, and patient be taken to the main emergency department for further evaluation and treatment as soon as possible. Patient will be seen by my clinician partner. All results from intake work-up will be evaluated and managed by subsequent provider. Please see subsequent provider notes for further details and disposition. SIGNATURE: Kitty Moser APRN.TECHNICAL SERVICES REPRESENTATIVE Normal [facility] HIGH SENSITIVITY TROPONIN T (INITIAL)on 04-24-2025 Troponin T.cardiac High sensitivity method [Mass/Vol] 13 ng/L High <12 [facility] Comment on above: Order Comment: Speci men Type: BLOOD SPECIMENOrdering Facility: [facility] Address: [address] [place] [address] Performed By: #### L [id number] ####[facility] INDIANACLIA [id number] [address] STATES OF [facility] Magnesium [facility] Magnesium [Mass/Vol] 2.3 mg/dL Normal 1.7-2.3 [facility] Comment on above: Order Comment: Speci men Type: BLOOD SPECIMENOrdering Facility: [facility] Address: [address] [place] [address] Performed By: #### 2 4321-2, 34367-8, ####[facility]CL[facility] [id number] [address] STATES OF [facility] NT-proBNP SerPl-ncon 04-24 Natriuretic peptide.B prohormone N-Terminal [Mass/Vol] <36 Normal <125 [facility] Comment on above: Order Comment: Speci men Type: BLOOD SPECIMENOrdering Facility: [facility] Address: [address] [place] [address] Performed By: #### 2 4321-2, 38251-8, ####[facility] LABORATORYCLIA [id number] [place] [address] [place] XR CHEST 2V FRONTAL/LATon XR CHEST 2V FRONTAL/LAT * * *Final Repor t* * * DATE OF EXAM: Apr 24 2025 3:49PM [id number] - XR CHEST 2V FRONTAL/LAT / PROCEDURE REASON: Chest Pain * * * * Physician Interpretation * * * * EXAMINATION: CHEST RADIOGRAPH (2 VIEW FRONTAL and LATERAL) CLINICAL HISTORY: Shortness of breath. MQ: XC2_6 EXAM DATE/TIME: 04/24/2025 3:49 PM COMPARISON: Chest radiographs 03/03/2025, 11/27/2022 and 04/30/2007. RESULT: Lines, tubes, and devices: Pre-existing left subclavian ICD. Lungs and pleura: No consolidation. No pleural effusion. Cardiomediastinal silhouette: Stable cardiomediastinal silhouette. Bones and soft tissues: Degenerative changes are present within the thoracic spine. IMPRESSION: No acute radiographic abnormality. Transportation Planning Engineer: WALTER Transcribe Date/Time: Apr 24 2025 3:56P Dictated by : YARED HEIN MD This examination was interpreted and the report reviewed and electronically signed by: YARED HEIN MD on Apr 24 2025 3:59PM EST [id number] N Normal [facility] CNNURSEon 03-14-2025 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 Louis Conveyor Feeder Offbearer N/A Vincent Orosco Chano is a 64 year old male here for evaluation and management of Heart Failure (Systolic)(HFrEF): 32% as a Follow -up Visit for established patient. BP 104/62 (BP Site: Left Arm, BP Position: Sitting, BP Cuff Size: Regular Adult) Pulse 65 Resp 18 Ht 172.7 cm (5' 8) Wt 89.2 kg (196 lb 9.6 oz) SpO2 96% BMI 29.89 kg/m? WEIGHT: Last 5 Encounter Wt Readings: Date: Wt: 03/14/2025 89.2 kg (196 lb 9.6 oz) 02/14/2025 89.4 kg (197 lb) 01/16/2025 89.2 kg (196 lb 9.6 oz) 12/24/2024 87.1 kg (192 lb) 09/05/2024 91.1 kg (200 lb 14.4 oz) Home weight 196.0 lbs HFC: 196.6 lbs Any weight change? NO-197.0 last visit Waist circumference 42 in Current Outpatient Medications Medication Sig rosuvastatin (CRESTOR) 20 mg tablet Take 1 tablet by mouth daily at bedtime. lisinopril (ZESTRIL) 20 mg tablet Take 1 tablet by mouth two times a day. furosemide (LASIX) 40 mg tablet Take 1 tablet by mouth once daily. carvedilol (COREG) 12.5 mg tablet Take 1 tablet by mouth two times a day. empagliflozin (JARDIANCE) 10 mg tablet Take 1 tablet by mouth daily with breakfast. cyclobenzaprine (FLEXERIL) 5 mg tablet Take 1 tablet by mouth three times a day as needed for muscle spasm. Tadalafil (CIALIS) 5 mg tablet Take 1 tablet by mouth once daily. Take 1 tablet by mouth daily esomeprazole (NEXIUM) 40 mg capsule Take 1 capsule by mouth once daily. spironolactone (ALDACTONE) 25 mg tablet Take 1 tablet by mouth once daily. diclofenac (VOLTAREN) 1 % topical gel Apply 2 g to affected area four times daily. meclizine (ANTIVERT) 25 mg tab Take 1 tablet by mouth three times daily as needed. topiramate (TOPAMAX) 100 mg tablet Take 1 tablet by mouth daily at bedtime. aspirin, enteric coated (ADULT LOW DOSE ASPIRIN) 81 mg EC tablet Take 1 tablet by mouth once daily. No current facility-administered medications for this visit. REVIEW OF SYSTEMS: General Well-Being: Feels well, little or no difficulties with activities of daily living Pulmonary Symptoms: No Problems with shortness of breath at rest or with activity, cough Cardiac Symptoms: No symptoms of pain, swelling, or feeling changes in heart rate GI/: Appetite good PHYSICAL EXAM: General: Appearance: Alert, oriented,in no acute distress and Gait: steady, without difficulty Pulmonary: Lungs clear to auscultation, no wheezing Cardiovascular: Rhythm regular and Edema none Abdominal:normal, soft non-tender, and good bowel sounds Additional Assessment: NYHA CLASS: 2. Slight limitation of physical activity. Ordinary physical activity results in fatigue, palpitations, dyspnea or angina pectoris (mid CHF). and II C HEALTHY BEHAVIORS: Taking all medications as prescribed? YES. Following your prescribed diet? YES Low Sodium Fluid restriction? YES Weighing yourself daily? YES Activity: Limited in ADLs GOALS: Reviewed and reinforcement was provided with emphasis on the need to weigh daily, read labels, monitor Na/fluids, monitoring for signs/symptoms, and when to call the [facility] for early intervention. Discussed importance of balancing sodium throughout the day for a goal of 500-650 mg per meal (6758-8293 mg per day) and to limit fluids to 48-64 ounces per day. Encouraged the patient to call the [facility] with any questions/concerns. EJECTION FRACTION Ejection Fraction - Result: 32 % Date: 01/08/2025 Time: 08:05:35 SUMMARY AND PLAN: Patient came to the [facility] for a follow-up visit with RN. Patient came ambulating without assistance. He did have complaints of occasional fatigue/SOB with exertion. VS completed. Reminded patient of proper BP monitoring technique (empty bladder, feet flat, back supported and arm at level of heart). Medications reviewed and patient stated that he is compliant with them. He states that he is watching sodium carefully and is reading labels. Monitoring fluid intake. Rare dining out. Reinforcement provided. Assessment revealed lungs clear, abdomen soft, no edema noted. Patient denies increased SOB/PND/cough. Weight stable at 196.6 lbs. Discussed home exercise (walking, bands, arm exercises) and home safety (no area rugs, get up slowly, no rushing to answer phone/door) guidelines. Encouraged him to increase activity as tolerated. Heart Failure specific medications: (list current, note updates, changes, prior intolerance) BB: Carvedilol MARTHA/ARB/ARNI: Lisinopril MRA: Spironolactone SGLT2: Shona CAMPOS (more content not included)... Normal [facility] CBC panel Auto (Bld)on 03-03 Erythrocyte distribution width (RBC) [Ratio] 12.1 % Normal 11.5-15.0 [facility] Comment on above: Order Comment: Speci men Type: BLOOD SPECIMENOrdering Facility: [facility] Address: [address] [place] [address] Performed By: #### 5 8410-2 ####[facility] LABORATORYCLIA [id number] [address] Hematocrit (Bld) [Volume fraction] 39.9 % Normal 39.0-51.0 [facility] Comment on above: Order Comment: Speci men Type: BLOOD SPECIMENOrdering Facility: [facility] Address: [address] [place] [address] Performed By: #### 5 8410-2 ####[facility] LABORATORYCLIA [id number] [address] STATES OF [facility] Hemoglobin (Bld) [Mass/Vol] 13.3 g/dL Normal 13.0-17.0 [facility] Comment on above: Order Comment: Speci men Type: BLOOD SPECIMENOrdering Facility: [facility] Address: [address] [place] [address] Performed By: #### 5 8410-2 ####[facility] LABORATORYCLIA [id number] [address] STATES [facility] MCH (RBC) [Entitic mass] 31.5 pg Normal 26.0-34.0 [facility] Comment on above: Order Comment: Speci men Type: BLOOD SPECIMENOrdering Facility: [facility] Address: [address] [place] [address] Performed By: #### 5 8410-2 ####[facility] LABORATORYCLIA [id number] [address] STATES [facility] MCHC (RBC) [Mass/Vol] 33.3 g/dL Normal 30.5-36.0 [facility] Comment on above: Order Comment: Speci men Type: BLOOD SPECIMENOrdering Facility: [facility] Address: [address] [place] [address] Performed By: #### 5 8410-2 ####[facility] LABORATORYCLIA [id number] [address] STATES [place] MCV (RBC) [Entitic vol] 94.5 fL Normal 80.0-100.0 [facility] Comment on above: Order Comment: Speci men Type: BLOOD SPECIMENOrdering Facility: [facility] Address: [address] [place] [address] Performed By: #### 5 8410-2 ####[facility] LABORATORYCLIA [id number] [address] [place] Nucleated RBC (Bld) [#/Vol] 10*3/uL Normal <0.01 [facility] Comment on above: Order Comment: Speci men Type: BLOOD SPECIMENOrdering Facility: [facility] Address: [address] [place] [address] Performed By: #### 5 8410-2 ####[facility] LABORATORYCLIA [id number] [address] [place] Platelet mean volume (Bld) [Entitic vol] 10.1 fL Normal 9.0-12.7 [facility] Comment on above: Order Comment: Speci men Type: BLOOD SPECIMENOrdering Facility: [facility] Address: [address] [place] [address] Performed By: #### 5 8410-2 ####[facility] LABORATORYCLIA [id number] [place] [address] [place] Platelets (Bld) [#/Vol] 173 10*3/uL Normal 150-400 [facility] Comment on above: Order Comment: Speci men Type: BLOOD SPECIMENOrdering Facility: [facility] Address: [address] [place] [address] Performed By: #### 5 8410-2 ####[facility] LABORATORYCLIA [id number] [place], [place] [id number] [place] [address] STATES OF [facility] RBC (Bld) [#/Vol] 4.22 10*6/uL Normal 4.20-6.00 [facility] Comment on above: Order Comment: Speci men Type: BLOOD SPECIMENOrdering Facility: [facility] Address: [address] [place] [address] Performed By: #### 5 8410-2 ####[facility] LABORATORYCLIA [id number] [place] [id number] [facility] WBC (Bld) [#/Vol] 5.82 10*3/uL Normal 3.70-11.00 [facility] Comment on above: Order Comment: Speci men Type: BLOOD SPECIMENOrdering Facility: [facility] Address: [address] [place] [address] Performed By: #### 5 8410-2 ####[facility] LABORATORYCLIA [id number] [address] CK SerPl-cCncon 03-03-2025 CK [Catalytic activity/Vol] 93 U/L Normal 51-298 [facility] Comment on above: Order Comment: Speci men Type: BLOOD SPECIMENOrdering Facility: [facility] Address: [address] [place] [address] Performed By: #### 2 4323-8, 75989-0, 7-6, 6-3 ####[facility] LABORATORYCLIA [id number] [place] [id number] [facility] Comprehensive metabolic 2000 panelon 03-03-2025 Albumin [Mass/Vol] 4.3 g/dL Normal 3.9-4.9 [facility] Comment on above: Order Comment: Speci men Type: BLOOD SPECIMENOrdering Facility: [facility] Address: [address] [place] [address] Performed By: #### 2 4323-8, 56267-8, 2157-6, 3016-3 ####[facility] LABORATORYCLIA [id number] [place] [id number] [facility] ALP [Catalytic activity/Vol] 40 U/L Normal 38-113 [facility] Comment on above: Order Comment: Speci men Type: BLOOD SPECIMENOrdering Facility: [facility] Address: [address] [place] [address] Performed By: #### 2 4323-8, 34210-4, 2156-6, 6-3 ####[facility] LABORATORYCLIA [id number] [place], [place] [id number] [place] [address] STATES OF [facility] ALT With P-5'-P [Catalytic activity/Vol] 23 U/L Normal 10-54 [facility] Comment on above: Order Comment: Speci men Type: BLOOD SPECIMENOrdering Facility: [facility] Address: [address] [place] [address] Performed By: #### 2 4323-8, 63863-4, 2157-03, 6-3 ####[facility] LABORATORYCLIA [id number] [address] STATES [facility] Anion gap [Moles/Vol] 9 mmol/L Normal 8-15 [facility] Comment on above: Order Comment: Speci men Type: BLOOD SPECIMENOrdering Facility: [facility] Address: [address] [place] [address] Performed By: #### 2 4323-8, 68407-2, 2157-03, 3015-3 ####[facility] LABORATORYCLIA [id number] [address] OF [facility] AST With P-5'-P [Catalytic activity/Vol] 22 U/L Normal 14-40 [facility] Comment on above: Order Comment: Speci men Type: BLOOD SPECIMENOrdering Facility: [facility] Address: [address] [place] [address] Performed By: #### 2 4323-8, 92350-1, 2157-03, 6-3 ####[facility] LABORATORYCLIA [id number] [place] [address] [place] Bilirubin [Mass/Vol] 0.4 mg/dL Normal 0.2-1.3 [facility] Comment on above: Order Comment: Speci men Type: BLOOD SPECIMENOrdering Facility: [facility] Address: [address] [place] [address] Performed By: #### 2 4323-8, 93368-1, 2157-03, 3 ####[facility] LABORATORYCLIA [id number] [place] [address] [place] Calcium [Mass/Vol] 9.7 mg/dL Normal 8.5-10.2 [facility] Comment on above: Order Comment: Speci men Type: BLOOD SPECIMENOrdering Facility: [facility] Address: [address] [place] [address] Performed By: #### 2 4323-8, 40247-6, 2157-03, 3015-12 ####[facility] LABORATORYCLIA [id number] [place] [address] [place] Chloride [Moles/Vol] 105 mmol/L Normal 98-107 [facility] Comment on above: Order Comment: Speci men Type: BLOOD SPECIMENOrdering Facility: [facility] Address: [address] [place] [address] Performed By: #### 2 4323-8, 77331-6, 2157-03, 3015-12 ####[facility] LABORATORYCLIA [id number] [place] [address] [place] CO2 [Moles/Vol] 25 mmol/L Normal 22-30 [facility] Comment on above: Order Comment: Speci men Type: BLOOD SPECIMENOrdering Facility: [facility] Address: [address] [place] [address] Performed By: #### 2 4323-8, 46899-4, 2157-03, 3 ####[facility] LABORATORYCLIA [id number] [place] [address] [place] Creatinine [Mass/Vol] 1.17 mg/dL Normal 0.73-1.22 [facility] Comment on above: Order Comment: Speci men Type: BLOOD SPECIMENOrdering Facility: [facility] Address: [address] [place] [id number] Performed By: #### 2 4323-8, 37259-7, 7-6, 6-3 ####[facility] ASSOCIATIONIA [id number] [place] [id number] [place] Creatinine and Glomerular filtration rate.predicted panel (S/P/Bld) 69 mL/min/1.73m??? Normal >=60 [facility] Comment on above: Order Comment: Karlene nina Type: BLOOD SPECIMENOrdering Facility: [facility] Address: [address] [place] [address] Result Comment: Jeanne mated Glomerular Filtration Rate (eGFR) is calculated using the 2020 CKD-EPI creatinine equation. This equation utilizes serum creatinine, sex, and age as parameters. The creatinine assay has traceable calibration to isotope dilution-mass spectrometry. Refer to KDIGO guidelines for clinical interpretation. In patients with unstable renal function, e.g. those with acute kidney injury, the eGFR may not accurately reflect actual GFR. Performed By: #### 2 4323-8, 29201-3, 2156-6, 3016-3 ####[facility] ASSOCIATIONIA [id number] [place] [id number] [place] Glucose [Mass/Vol] 105 mg/dL High 74-99 [facility] Comment on above: Order Comment: Karlene nina Type: BLOOD SPECIMENOrdering Facility: [facility] Address: [address] [place] [address] Result Comment: The [place] Diabetes Association (ADA) provides guidance for cutoff values for fasting glucose and random glucose. The ADA defines fasting as no caloric intake for at least 8 hours. Fasting plasma glucose results between 100 to 125 mg/dL indicate increased risk for diabetes (prediabetes). Fasting plasma glucose results greater than or equal to 126 mg/dL meet the criteria for diagnosis of diabetes. In the absence of unequivocal hyperglycemia, results should be confirmed by repeat testing. In a patient with classic symptoms of hyperglycemia or hyperglycemic crisis, random plasma glucose results greater than or equal to 200 mg/dL meet the criteria for diagnosis of diabetes. Reference: Standards of Medical Care in Diabetes 2016, [place] [employer] Association. Diabetes Care. 2016.39(Suppl 1). Performed By: #### 2 4323-8, 61324-3, 2157-03, 3015-3 ####[facility] LABORATORYCLIA [id number] [place] [address] [place] Potassium [Moles/Vol] 4.6 mmol/L Normal 3.7-5.1 [facility] Comment on above: Order Comment: Speci men Type: BLOOD SPECIMENOrdering Facility: [facility] Address: [address] [place] [address] Performed By: #### 2 4323-8, 03303-0, 2157-03, 3015-3 ####[facility] LABORATORYCLIA [id number] [place] [id number] [place] Protein [Mass/Vol] 7.0 g/dL Normal 6.3-8.0 [facility] Comment on above: Order Comment: Speci men Type: BLOOD SPECIMENOrdering Facility: [facility] Address: [address] [place] [address] Performed By: #### 2 4323-8, 68209-0, 2157-03, 3015-3 ####[facility] LABORATORYCLIA [id number] [place] [address] [place] Sodium [Moles/Vol] 139 mmol/L Normal 136-144 [facility] Comment on above: Order Comment: Speci men Type: BLOOD SPECIMENOrdering Facility: [facility] Address: [address] [place] [address] Performed By: #### 2 4323-8, 71837-2, 2157-03, 3015-3 ####[facility] LABORATORYCLIA [id number] [place] [address] [place] Urea nitrogen [Mass/Vol] 29 mg/dL High 9-24 [facility] Comment on above: Order Comment: Speci men Type: BLOOD SPECIMENOrdering Facility: [facility] Address: [address] [place] [address] Performed By: #### 2 4323-8, 71721-9, 2157-03, 3016-3 ####[facility] LABORATORYCLIA [id number] [place], [place] [id number] [place] [address] [place] Lipid 1996 panelon 5 Cholesterol [Mass/Vol] 249 mg/dL High <200 [facility] Comment on above: Order Comment: Speci men Type: BLOOD SPECIMENOrdering Facility: [facility] Address: [address] [place] [address] Result Comment: <200 mg/dL, Desirable 200-239 mg/dL, Borderline high >239 mg/dL, High Performed By: #### 2 4323-8, 66583-3, 2157-03, 3015-12 ####[facility]ORATORYCLIA [id number] [address] [place] Cholesterol in HDL [Mass/Vol] 43 mg/dL Normal >39 [facility] Comment on above: Order Comment: Speci men Type: BLOOD SPECIMENOrdering Facility: [facility] Address: [address] [place] [address] Result Comment: 40-5 9 mg/dL, Acceptable >59 mg/dL, High: Negative risk factor for coronary heart disease <40 mg/dL, Low: Positive risk factor for coronary heart disease Performed By: #### 2 4323-8, 99175-8, 2157-03, 3015-12 ####[facility]ORATORYCLIA [id number] [address] OF [facility] Cholesterol in LDL [Mass/Vol] 191 mg/dL High <100 [facility] Comment on above: Order Comment: Speci men Type: BLOOD SPECIMENOrdering Facility: [facility] Address: [address] [place] [address] Result Comment: <100 mg/dL, Optimal 100-129 mg/dL, Near optimal/above optimal 130-159 mg/dL, Borderline high 160-189 mg/dL, High >189 mg/dL, Very high Secondary prevention optimal LDL Cholesterol levels are recommended to be <70 mg/dL LDL cholesterol is calculated using the Howe-NIH equation. Performed By: #### 2 4323-8, 23063-5, 2157-03, 3015-12 ####[facility]ORATORYCLIA [id number] [address] Cholesterol in LDL/Cholesterol in HDL [Mass ratio] 4.44 {ratio} High <2.54 [facility] Comment on above: Order Comment: Allaradha nina Type: BLOOD SPECIMENOrdering Facility: [facility] Address: [address] [place] [address] Result Comment: Refe rence: 1. National Cholesterol Education Program ATP III Guideline At-A-Glance Quick Desk Reference: National Heart, Lung, and Blood [place]. National Institutes of Health. 2001: NIH Publication No. 01-3305. 2. An International Atherosclerosis Society position paper: global recommendations for the management of dyslipidemia: executive summary, Atherosclerosis. 2014: 232(2):410-413. Performed By: #### 2 4323-8, 57360-1, 2157-03, 3015-3 ####[facility]ATORYCLIA [id number] [address] Cholesterol in VLDL [Mass/Vol] 17 mg/dL Normal <30 [facility] Comment on above: Order Comment: Allaradha nina Type: BLOOD SPECIMENOrdering Facility: [facility] Address: [address] [place] [address] Performed By: #### 2 4323-8, 39387-9, 2157-03, 3015-3 ####[facility]ATORYCLIA [id number] [address] OF [facility] Cholesterol non HDL [Mass/Vol] 206 mg/dL High <130 [facility] Comment on above: Order Comment: Karlene nina Type: BLOOD SPECIMENOrdering Facility: [facility] Address: [address] [place] [address] Result Comment: <130 mg/dL, Optimal 130-159 mg/dL, Near optimal/above optimal 160-189 mg/dL, Borderline high 190-219 mg/dL, High >219 mg/dL, Very high Secondary prevention optimal non HDL Cholesterol levels are recommended to be <100 mg/dL Performed By: #### 2 4323-8, 11351-7, 2157-03, 6-3 ####[facility] LABORATORYCLIA [id number] [address] Cholesterol.total/Choles terol in HDL [Mass ratio] 5.79 {ratio} High <5.10 [facility] Comment on above: Order Comment: Speci men Type: BLOOD SPECIMENOrdering Facility: [facility] Address: [address] [place] [address] Performed By: #### 2 4323-8, 71880-2, 2157-03, 3015-3 ####[facility] LABORATORYCLIA [id number] [address] FASTING TIME 12 hrs Normal [facility] Comment on above: Order Comment: Speci men Type: BLOOD SPECIMENOrdering Facility: [facility] Address: [address] [place] [address] Performed By: #### 2 4323-8, 89941-0, 2157-03, 3 ####[facility] LABORATORYCLIA [id number] [address] Triglyceride [Mass/Vol] 84 mg/dL Normal <150 A [facility] Comment on above: Order Comment: Speci men Type: BLOOD SPECIMENOrdering Facility: [facility] Address: [address] [place] [address] Result Comment: <150 mg/dL, Normal 150-199 mg/dL, Borderline high 200-499 mg/dL, High >499 mg/dL, Very high Performed By: #### 2 4323-8, 49908-4, 2157-03, 3015-3 ####[facility] LABORATORYCLIA [id number] [place] [id number] [place] TSH SerPl-aCncon 03-03-2025 TSH Qn 2.040 m[IU]/L Normal 0.270-4.200 [facility] Comment on above: Order Comment: Speci men Type: BLOOD SPECIMENOrdering Facility: [facility] Address: [address] [place] [address] Performed By: #### 2 4323-8, 92681-7, 2157-03, 3015-3 ####[facility] LABORATORYCLIA [id number] [place] [id number] [place] XR CHEST 2V FRONTAL/LATon XR CHEST 2V FRONTAL/LAT * * *Final Repor t* * * DATE OF EXAM: Mar 03 2025 9:14AM ANX 5291 - XR CHEST 2V FRONTAL/LAT / PROCEDURE REASON: Dilated cardiomyopathy (HCC) * * * * Physician Interpretation * * * * EXAMINATION: CHEST RADIOGRAPH (2 VIEW FRONTAL and LATERAL) CLINICAL HISTORY: Dilated cardiomyopathy (HCC) MQ: XC2_6 EXAM DATE/TIME: 03/03/2025 9:14 AM COMPARISON: 07/19/2023. RESULT: Lines, tubes, and devices: A left pacemaker remains in place. Lungs and pleura: There is hypoinflation of the lungs with crowded lung markings in both lung bases. No consolidation. No lung mass. No pleural effusion. No pneumothorax. Cardiomediastinal silhouette: Stable and unremarkable cardiomediastinal silhouette. Bones and soft tissues: Unremarkable. IMPRESSION: Overall stable exam with no definite acute radiographic abnormality. Transportation Planning Engineer: PSCB Transcribe Date/Time: Mar 04 2025 8:31P Dictated by : SUMA SYKES MD This examination was interpreted and the report reviewed and electronically signed by: SUMA SYKES MD on Mar 04 2025 8:32PM EST [id number] N Normal [facility] 02-22-2025 [facility] ([facility]) VINCENT MADDEN ([id number]) 1960 M Date Time Provider Department 02/22/25 TOMASZ LOUIS During your visit today, we recorded the following information about you: Vinita Moore LPN 02/22/2025 4:06 PM Signed Himanshu called [facility] to report patient is unable to afford Entresto at this time. Is there another medication patient is able to take? GILMA Castañeda Jennifer, LPN 02/22/2025 4:19 PM Signed Tomasz Louis MD [facility]Just now (4:18 PM) As per other note we will switch him back to lisinopril 20 mg twice daily. He can start this 36 to 48 hours after running out or finishing the Entresto. I sent prescription to his local pharmacy dac Vinita Moore LPN 02/22/2025 4:21 PM Signed Informed Himanshu that patient can switch back to lisinopril 20 mg twice daily; he can start this 36 to 48 hours after running out or finishing the Entresto. Lisinopril sent to local pharmacy. Himanshu verbalizes understanding. Vinita Moore LPN Allergies As of Date: 02/22/2025 Noted Allergy Reaction BUPRENORPHINE 10/04/2020 14 - Other: See Comments Date Reviewed: 02/14/2025 Reviewed by: Kathleen William, ANDRES - Fully Assessed Reason for Visit: Patient Update [1234] Prescriptions as of 02/22/2025 - lisinopril (ZESTRIL) 20 mg tablet Take 1 tablet by mouth two times a day. - furosemide (LASIX) 40 mg tablet Take 1 tablet by mouth once daily. - atorvastatin (LIPITOR) 20 mg tablet Take 1 tablet by mouth once daily. - carvedilol (COREG) 12.5 mg tablet Take 1 tablet by mouth two times a day. - empagliflozin (JARDIANCE) 10 mg tablet Take 1 tablet by mouth daily with breakfast. - cyclobenzaprine (FLEXERIL) 5 mg tablet Take 1 tablet by mouth three times a day as needed for muscle spasm. - Tadalafil (CIALIS) 5 mg tablet Take 1 tablet by mouth once daily. Take 1 tablet by mouth daily - esomeprazole (NEXIUM) 40 mg capsule Take 1 capsule by mouth once daily. - spironolactone (ALDACTONE) 25 mg tablet Take 1 tablet by mouth once daily. - diclofenac (VOLTAREN) 1 % topical gel Apply 2 g to affected area four times daily. - meclizine (ANTIVERT) 25 mg tab Take 1 tablet by mouth three times daily as needed. - topiramate (TOPAMAX) 100 mg tablet Take 1 tablet by mouth daily at bedtime. - aspirin, enteric coated (ADULT LOW DOSE ASPIRIN) 81 mg EC tablet Take 1 tablet by mouth once daily. Problem List As Of Date 02/22/2025 Noted Resolved Systolic congestive heart failure, NYHA class 1*12/05/2012 Obesity [E66.9] 12/05/2012 08/09/2021 ICD (implantable cardioverter-defibril lator) in*06/04/2016 Dilated cardiomyopathy (HCC) [I42.0] 12/02/2012 Palpitations [R00.2] Coronary arteriosclerosis [I25.10] LBBB (left bundle branch block) [I44.7] Hypertriglyceridemia [E78.1] 02/11/2017 History of colonic polyps [Z86.0100] 08/30/2017 08/09/2021 Hiatal hernia with GERD [K44.9, K21.9] 02/10/2018 Carpal tunnel syndrome of left wrist [G56.02] 09/28/2018 Tendinitis of right rotator cuff [M75.81] 09/02/2020 08/09/2021 Lumbosacral radiculopathy [M54.17] 08/09/2021 Sciatica [M54.30] 08/09/2021 Displacement of lumbar intervertebral disc with*08/09/2021 Athscl heart disease of [place] coronary artery *02/26/2016 Chronic HFrEF (heart failure with reduced eject*11/19/2022 Preop examination [Z01.818] 11/19/2023 Gastroesophageal reflux disease [K21.9] 11/19/2023 Rectal bleeding [K62.5] 11/19/2023 HTN (hypertension) [I10] 11/19/2023 Elective replacement of Mdt Biv implantable car*05/30/2024 Encounter Status:Closed by VINITA MOORE on 02/22/25 [facility] CNPN Telephone ([facility]) VINCENT MADDEN ([id number]) 1960 M Date Time Provider Department 02/22/25 KERIGELY BERTRAND [facility] During your visit today, we recorded the following information about you: Gely Awad 02/22/2025 11:09 AM Signed Patient's daughter, Himanshu, reached out to the [facility] with concern of medication. Patient can no longer afford Entresto so will be taking Lisinopril in replacement. When patient did start Entresto he was instructed to stop Lisinopril for 4 days before starting Entresto. No patient going back on to Lisinopril does he need to be off Entresto for 4 days before going back on to Lisinopril? Himanshu [phone] Fabio Montoya RN 02/22/2025 1:48 PM Signed Background: Current Medication: Question regarding re-starting Lisinopril Last seen in the [facility] and weight: 02/14/25 197 lbs Please see last note in EPIC on 02/14/25 from the [facility] regarding med changes. 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 Routed to Jerardo Mac CNP and Janene Romeo CNP. Ember Romeo APRN.BRANDEN 02/22/2025 2:44 PM Addendum Please call patient, Please allow a 36-hour washout period when switching from or to an MARTHA inhibitor / lisinopril. Patient was on lisinopril 20 mg twice daily previously we can simply go back to that. Ember Marquez APRN.Fabio Carreon RN 02/22/2025 3:59 PM Signed Call returned to Himanshu. Patient has one day of Entresto left. Instructed on recommendations per Janene Romeo CNP. Patient will need refills on Lisinopril, forwarded to Dr. Louis. Himanshu verbalized understanding. Allergies As of Date: 02/22/2025 Noted Allergy Reaction BUPRENORPHINE 10/04/2020 14 - Other: See Comments Date Reviewed: 02/14/2025 Reviewed by: Kathleen William RN - Fully Assessed Reason for Visit: Patient Question [8823] Order(s):lisinopril (ZESTRIL) 20 mg tabletTake 1 tablet by mouth two times a day.Disp: 180 tabletRfl: 3 Prescriptions as of 02/22/2025 - lisinopril (ZESTRIL) 20 mg tablet Take 1 tablet by mouth two times a day. - furosemide (LASIX) 40 mg tablet Take 1 tablet by mouth once daily. - atorvastatin (LIPITOR) 20 mg tablet Take 1 tablet by mouth once daily. - carvedilol (COREG) 12.5 mg tablet Take 1 tablet by mouth two times a day. - empagliflozin (JARDIANCE) 10 mg tablet Take 1 tablet by mouth daily with breakfast. - cyclobenzaprine (FLEXERIL) 5 mg tablet Take 1 tablet by mouth three times a day as needed for muscle spasm. - Tadalafil (CIALIS) 5 mg tablet Take 1 tablet by mouth once daily. Take 1 tablet by mouth daily - esomeprazole (NEXIUM) 40 mg capsule Take 1 capsule by mouth once daily. - spironolactone (ALDACTONE) 25 mg tablet Take 1 tablet by mouth once daily. - diclofenac (VOLTAREN) 1 % topical gel Apply 2 g to affected area four times daily. - meclizine (ANTIVERT) 25 mg tab Take 1 tablet by mouth three times daily as needed. - topiramate (TOPAMAX) 100 mg tablet Take 1 tablet by mouth daily at bedtime. - aspirin, enteric coated (ADULT LOW DOSE ASPIRIN) 81 mg EC tablet Take 1 tablet by mouth once daily. Problem List As Of Date 02/22/2025 Noted Resolved Systolic congestive heart failure, NYHA class 1*12/05/2012 Obesity [E66.9] 12/05/2012 08/09/2021 ICD (implantable cardioverter-defibril lator) in*06/04/2016 Dilated cardiomyopathy (HCC) [I42.0] 12/02/2012 Palpitations [R00.2] Coronary arteriosclerosis [I25.10] LBBB (left bundle branch block) [I44.7] Hypertriglyceridemia [E78.1] 02/11/2017 History of colonic polyps [Z86.0100] 08/30/2017 08/09/2021 Hiatal hernia with GERD [K44.9, K21.9] 02/10/2018 Carpal tunnel syndrome of left wrist [G56.02] 09/28/2018 Tendinitis of right rotator cuff [M75.81] 09/02/2020 08/09/2021 Lumbosacral radiculopathy [M54.17] 08/09/2021 Sciatica [M54.30] 08/09/2021 Displacement of lumbar intervertebral disc with*08/09/2021 Athscl heart disease of [place] coronary artery *02/26/2016 Chronic HFrEF (heart failure with reduced eject*11/19/2022 Preop examination [Z01.818] 11/19/2023 Gastroesophageal reflux disease [K21.9] 11/19/2023 Rectal bleeding [K62.5] 11/19/2023 HTN (hypertension) [I10] 11/19/2023 Elective replacement of Mdt Biv implantable car*05/30/2024 Prescriptions ordered this encounter Disp Refills Start End LISINOPRIL 20 MG TABLET 180 * 3 02/22/2025 Route: ORAL Sig: Take 1 tablet by mouth two times a day. Medications Discontinued During This Encounter Prescriptions - sacubitril-valsartan (ENTRESTO) 24-26 mg tablet (Discontinued) Take 1 tablet by mouth two times a day. First dose January 19 Encounter Status:Closed [facility] Office Visit ([facility]) VINCENT MADDEN ([id number]) 1960 M Date Time Provider Department 02/14/25 3:45 PM SUZY MAC [facility] During your visit today, we recorded the following information about you: Pulse Blood pressure Weight 80/minute 125/76 89.4 kg Kathleen William, RN 02/14/2025 5:28 PM Signed Patient presents to the [facility] for initial HFC visit with ELO. He is ambulating independently and is accompanied by his daughter. Sometimes with c/o dizziness/lightheaded ness when up and active or when doing too much. Prescribed Antivert PRN. SOB with exertion at times. Weight gain over 20 lbs in 1 month. States stomach is bloated. Has BP cuff at home but not checking BP at home. Medication updates noted in MAR. Adherence with medications: questionable on what he is taking versus not taking. Has not started Entresto d/t cost. Initially, MAR noted taking Entresto but Jardiance was noted as not started due to cost. Daughter confirms he is taking Jardiance but NOT taking Entrestro. Patient does not seem familiar with medications and often defers to daughter to answer whether taking or not. Weight at home: 194 lb Weight in HFC: 197 lb Previous [facility] visit: 196 lb OV 01/16/25 Dietary Adherence: YES Patient had Heart Failure RN phone call with education on 02/08/25. Patient was hand delivered education packet to supplement teaching provided over telephone. Education packet includes: importance of following a 2 gm sodium diet (500-650mg / meal), 64 oz fluid restriction, label reading, medication adherence, increased activity, daily weights and follow up care. Heart Failure Zone sheet reviewed. Reminded patient of the signs/symptoms of impending CHF and when to call the [facility] for early intervention. Patient further evaluated by ELO. Recommendations received at this time, placed on After Visit Summary, and reviewed with patient. Suzy Mac APRN.BRANDEN 02/14/2025 5:06 PM Signed Thank you for visiting the [facility] today. [facility] pharmacy will call you to discuss the cost of Entresto Their number is a [phone] or DO NOT TAKE Lisinopril and Entresto Monitor blood pressure, heart rate, weights OK to take an extra Furosemide/Lasix as needed for increased weight, shortness of breath or swelling in the abdomen or legs. For any guidance please call the heart failure clinic at [phone] Please weigh daily and record. Read your food labels and watch for hidden sodium. Keep your sodium intake between 1500-2000mg daily (which is 500-650mg per meal x 3 meals a day). Remember, any foods made or created by someone else may have a high content of sodium such as restaurant foods or foods made by friends and family. Continue to eat small, frequent meals. Try to include a form of protein with every meal. Keep your fluid intake a 48-64 ounces/day. This includes anything liquid at room temperature such as jello, pudding, yogurt, and ice cream. Increase your activity as tolerated. Call the [facility] [phone] for AN APPOINTMENT (NO walk in visits) if you have changes in symptoms or increase in weight of 3lbs in one day or 5 lbs in a week. Thank you, Heart Failure Clinic Suzy Mac APRN.TECHNICAL SERVICES REPRESENTATIVE 02/14/2025 5:28 PM Signed PRIMARY CARE PHYSICIAN: To use this Smartlink, specify the provider ID whose address you want to display, e.g., .PROVADDR[1 (where 1 is the provider ID). Chief Complaint Patient presents with: CHF HISTORY OF PRESENT ILLNESS: Mr. 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 Louis. Patient very pleasant alert and oriented. Patient accompanied today with daughter. Both very willing and eager to learn. With review of fluid and salt restriction this is not necessarily new for patient he is very well versed. And he feels he is doing well. I have asked him to look at some of the items at his home that he mentions they may be higher in salt than he thinks. With review of most recent echocardiogram he had a drop in his ejection fraction to the 30s. Dr. Louis started patient on GDMT. Discussed with patient the goal is to adjust these medications as best as we can using his blood pressure heart rate and weights. Patient has yet to obtain any of these numbers. So I have asked him to begin. Unfortunately patient does not know his own medication list. He allows his daughter to answer for him and manage his medications excetra. On Wednesday he think he took them twice. Spent time discussing the importance of knowing his o (more content not included)... Normal [facility] CNNURSEon 02-08-2025 [facility] Nurse Visit ([facility]) VINCENT MADDEN ([id number]) 1960 M Date Time Provider Department 02/08/25 1:00 PM NURSE CARD CHF 2 [facility] During your visit today, we recorded the following information about you: Lindsey Arana, RN 02/08/2025 1:49 PM Signed A phone visit was placed to educate patient on signs, symptoms, medications and diet for Heart Failure patients. This phone or virtual visit was conducted to prevent risk and to optimize the patient's heart health. Patient is aware of the inherent limitations of a phone encounter. Verbal consent obtained. Name and verified. Heart Failure Clinic Telephone Visit Spoke directly with patient Yes and dtr Himanshu New patient visit Yes Established patient visit No Change in health status since discharge n/a, pt was referral from cardiology Do you have a scale to at home to weigh yourself everyday? Yes Are you weighing yourself daily and writing it down? Yes Weight at discharge/last visit 196 lb at OV Weight today 195 lb Do you have any signs/symptoms? Weight gain gradual, states he gained 20 lbs over the last few months , reports cardiology didn't think it was fluid Edema No per pt SOB with activity Yes with heavy exertion SOB at rest No SOB when lying flat yes, sometimes # of pillows 1-2 Abdominal distention No Changed in appetite eats like a bird Cough No Do you know who to contact if you have weight gain or symptoms? Reviewed HFC contact info Do you know what other symptoms to report to the HF Clinic? Reviewed HF zone sheet symptoms with pt Medications were reviewed Yes Heart Failure specific medications: (list current, note updates, changes, prior intolerance) BB: coreg 12.5 bid MARTHA/ARB/ARNI: entresto 24-26 bid MRA: spironolactone 25 daily SGLT2: jardiance 10 daily DIURETIC: lasix 40 daily Do you have all of your medications? Yes Have you been taking your medications as directed? Yes Have you been maintaining a 2109-7606 mg of sodium diet? No, not reading labels. He does the cooking, occasionally adds salt. May need re-enforcement in sodium teaching. Discussed avoiding foods high in hidden sodium (canned items, processed meats, frozen meals, restaurant food, etc) Educated on balancing sodium evenly throughout the day with a goal of 500-650mg per meal x 3 meals a day. Are you reading labels? No Have you been maintaining a 2 liter (64 oz) fluid restriction? Unsure, pt not measuring. Pt thinks he is. Encouraged pt to start measuring Diet reviewed Yes Are you exercising/active? Very active per pt Do you have any questions/concerns? No Reviewed who to contact for questions/concerns Yes Confirmed patient has HF Clinic phone number and provider phone numbers Yes Reviewed HF Clinic hours of operation Yes Reviewed when to seek Emergency Room/911 care Yes Reviewed upcoming appointments Yes Verbalized understanding? Yes Next visit 02/14/25 with TECHNICAL SERVICES REPRESENTATIVE, will need HF zone sheet at this OV Time spent: 30 > 50% counseling and coordination of care Lindsey Arana RN February 08, 2025 1:01 PM Allergies As of Date: 02/08/2025 Noted Allergy Reaction BUPRENORPHINE 10/04/2020 14 - Other: See Comments Date Reviewed: 02/05/2025 Reviewed by: Madelyn Dc APRN.TECHNICAL SERVICES REPRESENTATIVE - Fully Assessed Reason for Visit: Remote HF Follow Up [1927] Primary Visit Diagnosis:Congestive heart failure, unspecified HF chronicity, unspecified heart failure type (HCC) [I50.9] [I50.9] Prescriptions as of 02/08/2025 - carvedilol (COREG) 12.5 mg tablet Take 1 tablet by mouth two times a day. - sacubitril-valsartan (ENTRESTO) 24-26 mg tablet Take 1 tablet by mouth two times a day. First dose January 19 - empagliflozin (JARDIANCE) 10 mg tablet Take 1 tablet by mouth daily with breakfast. - cyclobenzaprine (FLEXERIL) 5 mg tablet Take 1 tablet by mouth three times a day as needed for muscle spasm. - Tadalafil (CIALIS) 5 mg tablet Take 1 tablet by mouth once daily. Take 1 tablet by mouth daily - esomeprazole (NEXIUM) 40 mg capsule Take 1 capsule by mouth once daily. - furosemide (LASIX) 40 mg tablet Take 1 tablet by mouth once daily. - spironolactone (ALDACTONE) 25 mg tablet Take 1 tablet by mouth once daily. - atorvastatin (LIPITOR) 20 mg tablet Take 1 tablet by mouth once daily. - diclofenac (VOLTAREN) 1 % topical gel Apply 2 g to affected area four times daily. - meclizine (ANTIVERT) 25 mg tab Take 1 tablet by mouth three times daily as needed. - topiramate (TOPAMAX) 100 mg tablet Take 1 tablet by mouth daily at bedtime. - aspirin, enteric coated (ADULT LOW DOSE ASPIRIN) 81 mg EC tablet Take 1 tablet by mouth once daily. Medication notes this encounter EMPAGLIFLOZIN 10 MG TABLET >> Lindsey Arana RN 02/08/2025 1:21 PM >> LINDSEY ARANA [facility] Feb 08, 2025 1:21 PM Did not start, cost prohibitive Problem List As Of Date 02/08/2025 No (more content not included)... Normal [facility] CNCOon 02-06-2025 CNCO Letter Text Normal [facility] CNOVon 02-05-2025 [facility] Office Visit ([facility]) VINCENT MADDEN ([id number]) 1960 M Date Time Provider Department 02/05/25 3:15 PM [facility] During your visit today, we recorded the following information about you: Pulse Respiration 78/minute 17/minute Aga Parker LPN 02/05/2025 2:59 PM Signed Review of Systems Constitutional: Negative for activity change, chills, fever and unexpected weight change. Genitourinary: Negative for difficulty urinating. Musculoskeletal: Positive for back pain, gait problem, neck pain and neck stiffness. Negative for arthralgias, joint swelling and myalgias. Neurological: Negative for weakness, numbness and headaches. Psychiatric/Behaviora l: Negative for dysphoric mood, sleep disturbance and suicidal ideas. The patient is not nervous/anxious. Madelyn Dc APRN.TECHNICAL SERVICES REPRESENTATIVE 02/05/2025 2:58 PM Signed Ice and heat as tolerated Activity as tolerated Patient verbalizes understanding of home going instructions and is in agreement Madelyn Dc APRN.TECHNICAL SERVICES REPRESENTATIVE 02/05/2025 2:59 PM Signed [facility] Today's Date: 02/05/2025 Name: Vincent Madden : 1960 Purpose: Follow up Chief complaint: neck pain Referring Clinician: Jim Malhotra Pertinent Past Medical History: CHF,GERD, Pertinent Past Surgeries: Defibrillator Plan at last visit: Follow up TPI Interval History: Overall pain and functional disability since last visit: Better New Complaints since last visit: No Follow up TPI today Patient reports 75 % relief from procedure with pain score of 2/10 to date. Patient reports improved quality of life and increase in ability to perform ADL's. Patient denies any adverse side effects such as nausea, vomiting, hives, fever, injection site redness/induration, headache, or new radicular symptoms. Current Pain Medications: Neuropathics: gabapentin NSAIDS: Muscle Relaxants: Flexeril Topicals: Other Prescription or OTC Pain Medications: Voltaren gel Opioids (when applicable): Anti-depressants or Mood-Stabilizers: None Anti-Coagulants: None Therapies Attended (Current or Most Recent): No Current Therapies 12/29/2024 AG SPINE COMBINATION Questionnaire GREENLIGHT Completed Date 12/29/2024 Questionnaire Opiod Risk Tool Completed Date 12/29/2024 No question data found. (All drug screens are appropriate unless indicated otherwise) Notable Events During Course of Treatment: History of Present Illness (HPI): 12/29/2024 - Initial HPI (Obtained by ).Madelyn Dc APRN.TECHNICAL SERVICES REPRESENTATIVE DURATION AND ONSET: last Wednesday for no reason - denies trauma RED FLAG SYMPTOMS: .denies PAIN DESCRIPTION: Timing: constant Character: aching, sharp Primary Location: bilateral 3 muscle groups trapezius, levator scapulae and supra scapular muscle groups Radiation: none Exacerbating factors: movement Relieving factors: nothing Interferes with: everything 12/24/24 ED visit: Is a 64-year-old male with cardiac history found to have acute cervical myofascial strain of the left paracervical musculature. No trauma no significant red flags. [place] this could be managed with medication management. Patient is administered IM Toradol, oral cyclobenzaprine. We discussed risk benefits and alternatives to trigger point injection and patient is agreeable. See procedure note above. Patient tolerated this well symptoms were modestly improved. Prescriptions to the pharmacy for oral naproxen short course, oral cyclobenzaprine. To follow-up with spine clinic if symptoms continue to persist. We discussed heat and gentle mobilization. We discussed worsening signs and symptoms that would warrant return to the emergency department. Current Pain Medications: Neuropathics: gabapentin, Topamax NSAIDS: Naprosyn Muscle Relaxants: Flexeril Topicals: Voltaren gel Other Prescription or OTC Pain Medications: Opioids (when applicable): Anti-depressants or Mood-Stabilizers: None Anti-Coagulants: None Therapies Attended (Current or Most Recent): No Current Therapies 12/29/2024 AG SPINE COMBINATION Questionnaire GREENLIGHT Completed Date 12/29/2024 Questionnaire Opiod Risk Tool Completed Date 12/29/2024 No question data found. (All drug screens are appropriate unless indicated otherwise) Treatment History: PAIN PROCEDURES: DATE PROCEDURE IMPROVEMENT To date, no interventional pain management procedures performed at this practice. MEDICATIONS Taken TO DATE (for the chief complaint(s)): Neuropathics: Neurontin (Gabapentin) NSAIDS: Naprosyn (Naproxen) Muscle Relaxa (more content not included)... Normal [facility] ICD CLINIC CHECKon 5 AV Delay Adaptive Paced Minimum (ms) 150 ms [facility] AV Delay Adaptive Sensed Minimum (ms) 110 ms [facility] AV Delay Adaptive Status ENABLED [facility] Battery Voltage 3.01 V [facility] Cameron LV Pacing Amplitude (volts) 1.5 V [facility] Cameron LV Pacing Polarity BI [facility] Cameron LV Pacing Pulse Width (ms) 0.4 ms [facility] Cameron RA Pacing Amplitude (volts) 1.5 V [facility] Cameron RA Pacing Polarity BI [facility] Cameron RA Pacing Pulse Width (ms) 0.4 ms [facility] Cameron RA Sensing Amplitude (mvolts) 0.45 mV [facility] Cameron RA Sensing Blanking Period (ms) 150 ms [facility] Cameron RA Sensing Polarity BI [facility] Cameron RA Sensing Refractory Period (ms) Auto [facility] Cameron RV Pacing Amplitude (volts) 2.0 V [facility] Cameron RV Pacing Polarity BI [facility] Cameron RV Pacing Pulse Width (ms) 0.4 ms [facility] Cameron RV Sensing Amplitude (mvolts) 0.3 mV [facility] Cameron RV Sensing Blanking Period (ms) 210 ms [facility] Cameron RV Sensing Polarity BI [facility] Detection Configuration (Vent) 1 - Zone [facility] ICD AFIB DetectionStatus ENABLED [facility] ICD ATAF DetectionInterval ms 350 ms [facility] ICD ATAF DetectionStatus ENABLED [facility] ICD FastVT DetectionStatus DISABLED [facility] ICD-ADLRATE_BPM 95 {beats}/min [facility] ICD-AMS EPISODES 171 {beats}/min [facility] ICD-ATP Episodes (Vent) [address] [facility] ICD-ATRIALFIBRILLATION 0 Cl [facility] ICD-Device Mfg MDT [facility] ICD-LEADIMPEDANCEATRIAL 380 ohm [facility] ICD-Percent Pacing (Atrial) 0.24 % [facility] ICD-Percent Pacing (Vent) 4.01 % [facility] ICD-PMT Intervention Enabled [facility] ICD-PVC Intervention Enabled [facility] ICD-Rate Modulation Acceleration Reaction 30 s [facility] ICD-Rate Modulation Deceleration Exercise [facility] ICD-Rate Modulation [facility] 3 [facility] ICD-Rate Modulation Threshold Low [facility] ICD-Rhythm /VS @ 73 bpm [facility] ICD-Shocks Aborted (Vent) 0 [facility] [id number] 0 [facility] ICD-SHOCKSABORTED 0 [facility] ICD-SHOCKSDELIVEREDVENTR ICULAR 0 [facility] ICD-Ventricular Fibrillation 0 [facility] ICD-VVDELAY_MS 0 ms [facility] Implant Date 05/30/2024 [facility] Lead Impedance (LV) 456 ohm [facility] Lead Impedance (RV) 323 ohm [facility] Lead Impedance High Voltage 52 ohm [facility]1 [facility] Lead2 Mfg [facility] Lead3 [facility] Location LV [facility] Location RA [facility] Location RV [facility] Lower Rate (bpm) 50 {beats}/min [facility] LV PACING % 96.93 % [facility] Max Sensor Rate (bpm) 140 {beats}/min [facility] MDT_PROG_TACHY_ZONE_DETE CTIONS_STATUS ENABLED [facility] Model [id number] Winfred HF Quad 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 NO [facility] Pacing Mode DDDR [facility] Serial Number [id number] [facility] Serial Number [id number] [facility] Serial Number [id number] [facility] Serial Number [id number] [facility] Test Charge Energy 18.0 J [facility] Test Charge Time 3.5 s [facility] Therapy Status (Vent) Enabled [facility] Thresh LV Capture Amplitude (volts) 1.0 V [facility] Thresh LV Capture Duration (ms) 0.4 ms [facility] Thresh RA Capture Amplitude (volts) 0.5 V [facility] Thresh RA Capture Duration (ms) 0.4 ms [facility] Thresh RA Sensing Amplitude (mvolts) 4.9 mV [facility] Thresh RV Capture Amplitude (VOLTS) 0.75 V [facility] Thresh RV Capture Duration (MS) 0.4 ms [facility] Thresh RV Sensing Amplitude (MVOLTS) 10.6 mV [facility] Tracking Rate (bpm) 140 {beats}/min [facility] VF Zone Detection Interval 320 ms [facility] VF Zone Therapy Configuration 1 ATP(s) + 6 Shock(s) [facility] 01/24/2025 Formattin g of this note might be different from the original. ICD check multiple lead biventricular system with programming. ID x2 for ICD evaluation/LV vector analysis, reprogramming per request Dr Monreal. Pt reports activity tolerance decreased since gen change; also last echo showed decreased EF. MDT rep here to assist. Left chest pocket intact, without signs of infection. 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 LV vector analysis, reprogramming per rep with assist 12lead ECG for QRS duration measures. Per [employer], best configuration LV1->LV3 with QRS 120ms; threshold 1.0V/0.4ms. Also noted rate histogram blunting at upper rates (for active pt), rate response added. Interrogation shows no VHRs or mode switch episodes since last check 09-05-24. V sensing x 82 episodes; per log longest 22s. No available EGMs. Recommended replacement time 11.2 years; charge time stable. Lead impedances, sensing and pacing thresholds stable; LV output adjusted, autocapture on all leads. Counters cleared. Pt verbalizes understanding to evaluate changes over timie, call if symptoms worsen; questions answered. [place]ern NOTE TO PROVIDERS: CARD Flowsheets contain detailed device programming and testing data. Paceart/Interrogation PDF can be found under CARDIAC DATA AND REPORT, Scanned Documents section. [facility] No Panel Informationon 01-24 BLANK _ [facility] ICD-Fast Ventricular Tachycardia 0 [facility] Implant Date 02/26/2016 [facility] CNPNon 01-18-2025 CNPN Telephone (Smarterphone ) VINCENT MADDEN ([id number]) 1960 M Date Time Provider Department 01/18/25 TOMASZ LOUIS During your visit today, we recorded the following information about you: Flori Dhillon RN 01/18/2025 2:36 PM Signed Mrs calls to report they can afford the Entresto but the jardiance is over $600 month. voices understanding pt is to stop lisinopril and start entresto 3 days later. ANDRES Panchal Stacey, RN 01/19/2025 8:30 AM Signed Tomasz Louis MD You16 hours ago (4:08 PM) Completely correct thank you-1 thing they can also check on is the cost of Farxiga 10 mg daily instead of Jardiance. Usually the cost is similar but if it happens to be significant less expensive then we could try that instead dac Flori Dhillon RN 01/19/2025 8:30 AM Signed Spoke with . She reports she is going to check on getting entresto and jardiance filled in [place]. Pt will check to make sure cost is acceptable. She will call when she needs written prescriptions. Flori Dhillon RN Allergies As of Date: 01/18/2025 Noted Allergy Reaction BUPRENORPHINE 10/04/2020 14 - Other: See Comments Date Reviewed: 01/16/2025 Reviewed by: Madelyn Dc APRN.TECHNICAL SERVICES REPRESENTATIVE - Fully Assessed Prescriptions as of 01/19/2025 - carvedilol (COREG) 12.5 mg tablet Take 1 tablet by mouth two times a day. - sacubitril-valsartan (ENTRESTO) 24-26 mg tablet Take 1 tablet by mouth two times a day. First dose January 19 - empagliflozin (JARDIANCE) 10 mg tablet Take 1 tablet by mouth daily with breakfast. - cyclobenzaprine (FLEXERIL) 5 mg tablet Take 1 tablet by mouth three times a day as needed for muscle spasm. - Tadalafil (CIALIS) 5 mg tablet Take 1 tablet by mouth once daily. Take 1 tablet by mouth daily - esomeprazole (NEXIUM) 40 mg capsule Take 1 capsule by mouth once daily. - furosemide (LASIX) 40 mg tablet Take 1 tablet by mouth once daily. - spironolactone (ALDACTONE) 25 mg tablet Take 1 tablet by mouth once daily. - atorvastatin (LIPITOR) 20 mg tablet Take 1 tablet by mouth once daily. - diclofenac (VOLTAREN) 1 % topical gel Apply 2 g to affected area four times daily. - meclizine (ANTIVERT) 25 mg tab Take 1 tablet by mouth three times daily as needed. - topiramate (TOPAMAX) 100 mg tablet Take 1 tablet by mouth daily at bedtime. - gabapentin (NEURONTIN) 600 mg tablet Take 600 mg by mouth three times a day. - aspirin, enteric coated (ADULT LOW DOSE ASPIRIN) 81 mg EC tablet Take 1 tablet by mouth once daily. Problem List As Of Date 01/18/2025 Noted Resolved Systolic congestive heart failure, NYHA class 1*12/05/2012 Obesity [E66.9] 12/05/2012 08/09/2021 ICD (implantable cardioverter-defibril lator) in*06/04/2016 Dilated cardiomyopathy (HCC) [I42.0] 12/02/2012 Palpitations [R00.2] Coronary arteriosclerosis [I25.10] LBBB (left bundle branch block) [I44.7] Hypertriglyceridemia [E78.1] 02/11/2017 History of colonic polyps [Z86.0100] 08/30/2017 08/09/2021 Hiatal hernia with GERD [K44.9, K21.9] 02/10/2018 Carpal tunnel syndrome of left wrist [G56.02] 09/28/2018 Tendinitis of right rotator cuff [M75.81] 09/02/2020 08/09/2021 Lumbosacral radiculopathy [M54.17] 08/09/2021 Sciatica [M54.30] 08/09/2021 Displacement of lumbar intervertebral disc with*08/09/2021 Athscl heart disease of [place] coronary artery *02/26/2016 Chronic systolic CHF (congestive heart failure)*11/19/2022 Preop examination [Z01.818] 11/19/2023 Gastroesophageal reflux disease [K21.9] 11/19/2023 Rectal bleeding [K62.5] 11/19/2023 HTN (hypertension) [I10] 11/19/2023 Elective replacement of Mdt Biv implantable car*05/30/2024 Encounter Status:Closed by FLORI DHILLON on 01/19/25 Normal [facility] CNPNon 01-17-2025 [facility] Telephone ([facility]) VINCENT MADDEN ([id number]) 1960 M Date Time Provider Department 01/17/25 DOMINIC BLEDSOE [facility] During your visit today, we recorded the following information about you: Dominic Bledsoe, ANDRES 01/17/2025 2:08 PM Addendum [facility] received a referral from Dr. Louis on 01/16/25 to schedule patient with the clinic. The clinic reached out to the patient by phone, MyChart and letter asking him to contact the clinic to schedule an appointment. Patient's returned call. Phone visit scheduled 02/08 (her request) and ELO appointment 02/14/25. Allergies As of Date: 01/17/2025 Noted Allergy Reaction BUPRENORPHINE 10/04/2020 14 - Other: See Comments Date Reviewed: 01/16/2025 Reviewed by: Madelyn Dc APRN.[facility] - Fully Assessed Reason for Visit: Orders [681] [facility] appt contact-NITHYA LAGUERRE, letter [Other] Prescriptions as of 01/17/2025 - sacubitril-valsartan (ENTRESTO) 24-26 mg tablet Take 1 tablet by mouth two times a day. First dose January 19 - empagliflozin (JARDIANCE) 10 mg tablet Take 1 tablet by mouth daily with breakfast. - cyclobenzaprine (FLEXERIL) 5 mg tablet Take 1 tablet by mouth three times a day as needed for muscle spasm. - carvedilol (COREG) 12.5 mg tablet Take 1 tablet by mouth twice daily - Tadalafil (CIALIS) 5 mg tablet Take 1 tablet by mouth once daily. Take 1 tablet by mouth daily - esomeprazole (NEXIUM) 40 mg capsule Take 1 capsule by mouth once daily. - furosemide (LASIX) 40 mg tablet Take 1 tablet by mouth once daily. - spironolactone (ALDACTONE) 25 mg tablet Take 1 tablet by mouth once daily. - atorvastatin (LIPITOR) 20 mg tablet Take 1 tablet by mouth once daily. - diclofenac (VOLTAREN) 1 % topical gel Apply 2 g to affected area four times daily. - meclizine (ANTIVERT) 25 mg tab Take 1 tablet by mouth three times daily as needed. - topiramate (TOPAMAX) 100 mg tablet Take 1 tablet by mouth daily at bedtime. - gabapentin (NEURONTIN) 600 mg tablet Take 600 mg by mouth three times a day. - aspirin, enteric coated (ADULT LOW DOSE ASPIRIN) 81 mg EC tablet Take 1 tablet by mouth once daily. Problem List As Of Date 01/17/2025 Noted Resolved Systolic congestive heart failure, NYHA class 1*12/05/2012 Obesity [E66.9] 12/05/2012 08/09/2021 ICD (implantable cardioverter-defibril lator) in*06/04/2016 Dilated cardiomyopathy (HCC) [I42.0] 12/02/2012 Palpitations [R00.2] Coronary arteriosclerosis [I25.10] LBBB (left bundle branch block) [I44.7] Hypertriglyceridemia [E78.1] 02/11/2017 History of colonic polyps [Z86.0100] 08/30/2017 08/09/2021 Hiatal hernia with GERD [K44.9, K21.9] 02/10/2018 Carpal tunnel syndrome of left wrist [G56.02] 09/28/2018 Tendinitis of right rotator cuff [M75.81] 09/02/2020 08/09/2021 Lumbosacral radiculopathy [M54.17] 08/09/2021 Sciatica [M54.30] 08/09/2021 Displacement of lumbar intervertebral disc with*08/09/2021 Athscl heart disease of [place] coronary artery *02/26/2016 Chronic systolic CHF (congestive heart failure)*11/19/2022 Preop examination [Z01.818] 11/19/2023 Gastroesophageal reflux disease [K21.9] 11/19/2023 Rectal bleeding [K62.5] 11/19/2023 HTN (hypertension) [I10] 11/19/2023 Elective replacement of Mdt Biv implantable car*05/30/2024 Letter Text Encounter Status:Closed by DOMINIC BLEDSOE on 01/17/25 [facility] CNOVon 01-16-2025 CNOV Office Visit ([facility]) VINCENT MADDEN ([id number]) 1960 M Date Time Provider Department 01/16/25 2:15 PM [facility] During your visit today, we recorded the following information about you: Pulse Respiration 73/minute 17/minute Aga Parker LPN 01/16/2025 2:13 PM Signed Review of Systems Constitutional: Negative for activity change, chills, fever and unexpected weight change. Genitourinary: Negative for difficulty urinating. Musculoskeletal: Positive for back pain. Negative for arthralgias, gait problem, joint swelling, myalgias and neck pain. Neurological: Positive for headaches. Negative for weakness and numbness. Psychiatric/Behaviora l: Negative for dysphoric mood, sleep disturbance and suicidal ideas. The patient is not nervous/anxious. Madelyn Dc APRN.TECHNICAL SERVICES REPRESENTATIVE 01/16/2025 2:13 PM Signed [facility] Phone: Today's Date: 01/16/2025 Patient Name: Vincent Ana Luisa Madden : 1960 Subjective: TPI HPI: Vincent Madden is a 64 year old male who presents for follow up evaluation Myofacial pain HANDP done 01/16/2025 We will plan on the TPIS for the myofascial pain Risks, benefits, and alternatives to the procedure were discussed with the patient. The patient was educated about special protocols to mitigate any exposure or infection risk in our facility and patient wishes to proceed with the procedure. GENERAL: No weight loss, malaise or fevers HEENT: Negative for frequent or significant headaches, No changes in hearing or vision, no nose bleeds or other nasal problems NECK: Negative for lumps, goiter, pain and significant neck swelling RESPIRATORY: Negative for cough, hemoptysis, wheezing, COPD, dyspnea or shortness of breath CARDIOVASCULAR: Negative for chest pain, leg swelling, hypertension, CHF or palpitations GI: No nausea, vomiting, or diarrhea : No history of dysuria, frequency or incontinence MUSCULOSKELETAL: Negative for joint pain or swelling, back pain or muscle pain SKIN: Negative for lesions, rash, and itching PSYCH: Negative for sleep disturbance, mood disorder and recent psychosocial stressors HEMATOLOGY/LYMPHOLOGY : Negative for prolonged bleeding, bruising easily or swollen nodes ENDOCRINE: Negative for cold or heat intolerance, polyuria, polydipsia and goiter NEURO: No history of headaches, syncope, paralysis, seizures or tremors Pain Assessment: 01/16/2025 01/16/2025 INTAKE PAIN ASSESSMENT Are you having pain associated with your visit today? No Yes, Provider notified Pain Scales Verbal (Numeric Rating or Visual Analog Scale) Pain Level 0 OARRS Report: PDMP website checked and validated. All prescriptions have been APPROPRIATELY filled. No suspicious activity was identified. 01/15/2025 by Madelyn Dc APRN.TECHNICAL SERVICES REPRESENTATIVE Past Medical History: PAST MEDICAL HISTORY Diagnosis Date Abnormal EKG Atherosclerotic heart disease of [place] coronary artery without angina pectoris Automatic implantable cardioverter-defibril lator in situ BBB (bundle branch block) Benign neoplasm of colon Cardiomegaly Cardiomyopathy (HCC) NIDCM CHF (congestive heart failure) systolic 12/02/2012 Chronic pain of left thumb Coronary arteriosclerosis Dilated cardiomyopathy (HCC) 12/02/2012 Latest Echo 05/2016 with EF 40% can be found in Care Everywhere Dyspnea Epigastric pain Fatigue GERD (gastroesophageal reflux disease) Hiatal hernia History of colonic polyps 08/30/2017 Added automatically from request for surgery [id number] HTN (hypertension) 11/19/2023 LBBB (left bundle branch block) Left ventricular failure (HCC) Obesity 12/05/2012 Palpitations SOB (shortness of breath) pt stated before pacemaker and defib placed Tendinitis of right rotator cuff 09/02/2020 Past Surgical History: PAST SURGICAL HISTORY Procedure Laterality Date CARDIAC CATH Left 06/2011 COLONOSCOPY SCREENING N/A 12/09/2023 COLONOSCOPY W/BIOPSY SINGLE/MULTIPLE 12/24/2017 EGD TRANSORAL BIOPSY SINGLE/MULTIPLE 12/24/2017 EGD W/O BRSH SPEC VARICIES INJ N/A 12/09/2023 LOW BACK DISK SURGERY PACEMAKER 02/26/2016 Medtronic pacemaker and defib PAST SURGICAL HISTORY OF pin removed from the left thumb Family History: FAMILY HISTORY Problem Relation Age of Onset Coronary Artery Disease Mother a. CABG, carotid artery endarterectomy bilateral Breast Cancer Mother Heart Mother Coronary Artery Disease Father a. CABG, valve replacement Heart Father None Brother 3 brothers and one sister a.OK Cancer Brother one brother a. Colon Cancer Brother other (scd) Other uncle and aunt scd other (Heart Attack) Other Heart Paternal Uncle x2 Heart Paternal Aunt Social History: Social History Tobacco Use Smoking status: Former Current packs/day: 0.00 Average packs/day: 1 (more content not included)... Normal [facility] CNOV Office Visit (CARDAGHWW) VINCENT MADDEN ([id number]) 1960 M Date Time Provider Department 01/16/25 11:40 AM TOMASZ LOUIS During your visit today, we recorded the following information about you: Blood pressure Weight 121/79 89.2 kg Tomasz Louis MD 01/16/2025 12:02 PM Signed Chief Complaint No chief complaint on file. History of Present Illness: Vincent Madden is a 64 year old male here to follow-up dilated cardiomyopathy. Recent echo showed reduction in EF down to about 30 to 35% with previously was a little higher at about 40 to 45% he says he feels like carotid but in fact does not really have edema he has gained some weight he does not have chest pain he does not have syncope he does not have palpitations he has had no ICD firings no stroke or TIA no upper or lower GI bleeding no severe bruising no claudication he is compliant with all of his meds. Sounds like he is mostly having some fatigue. He has had no fevers or chills no viral syndrome no unexplained weight loss he does not have a primary physician has not any recent blood work. 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 PAST MEDICAL HISTORY Diagnosis Date Abnormal EKG Atherosclerotic heart disease of [place] coronary artery without angina pectoris Automatic implantable cardioverter-defibril lator in situ BBB (bundle branch block) Benign neoplasm of colon Cardiomegaly Cardiomyopathy (HCC) NIDCM CHF (congestive heart failure) systolic 12/02/2012 Chronic pain of left thumb Coronary arteriosclerosis Dilated cardiomyopathy (HCC) 12/02/2012 Latest Echo 05/2016 with EF 40% can be found in Care Everywhere Dyspnea Epigastric pain Fatigue GERD (gastroesophageal reflux disease) Hiatal hernia History of colonic polyps 08/30/2017 Added automatically from request for surgery [id number] HTN (hypertension) 11/19/2023 LBBB (left bundle branch block) Left ventricular failure (HCC) Obesity 12/05/2012 Palpitations SOB (shortness of breath) pt stated before pacemaker and defib placed Tendinitis of right rotator cuff 09/02/2020 PAST SURGICAL HISTORY Procedure Laterality Date CARDIAC CATH Left 06/2011 COLONOSCOPY SCREENING N/A 12/09/2023 COLONOSCOPY W/BIOPSY SINGLE/MULTIPLE 12/24/2017 EGD TRANSORAL BIOPSY SINGLE/MULTIPLE 12/24/2017 EGD W/O BRSH SPEC VARICIES INJ N/A 12/09/2023 LOW BACK DISK SURGERY PACEMAKER 02/26/2016 Medtronic pacemaker and defib PAST SURGICAL HISTORY OF pin removed from the left thumb FAMILY HISTORY Problem Relation Age of Onset Coronary Artery Disease Mother a. CABG, carotid artery endarterectomy bilateral Breast Cancer Mother Heart Mother Coronary Artery Disease Father a. CABG, valve replacement Heart Father None Brother 3 brothers and one sister a.OK Cancer Brother one brother a. Colon Cancer Brother other (scd) Other uncle and aunt scd other (Heart Attack) Other Heart Paternal Uncle x2 Heart Paternal Aunt Social History Tobacco Use Smoking status: Former Current packs/day: 0.00 Average packs/day: 1 pack/day for 10.0 years (10.0 ttl pk-yrs) Types: Cigarettes Start date: 12/05/1996 Quit date: 12/05/2006 Years since quittin.1 Smokeless tobacco: Never Vaping Use Vaping status: Never Used Substance Use Topics Alcohol use: No Comment: heavy alcohol consumption and quit in 1987 Drug use: No ALLERGIES Allergen Reactions Buprenorphine Other: See Comments Medications: Current Outpatient Medications Medication Sig Dispense Refill cyclobenzaprine (FLEXERIL) 5 mg tablet Take 1 tablet by mouth three times a day as needed for muscle spasm. 15 tablet 0 carvedilol (COREG) 12.5 mg tablet Take 1 tablet by mouth twice daily 180 tablet 3 Tadalafil (CIALIS) 5 mg tablet Take 1 tablet by mouth once daily. Take 1 tablet by mouth daily (Patient taking differently: Take by mouth once daily. Take 1 tablet by mouth daily) 30 tablet 11 esomeprazole (NEXIUM) 40 mg capsule Take 1 capsule by mouth once daily. 30 capsule 11 furosemide (LASIX) 40 mg tablet Take 1 tablet by mouth once daily. 90 tablet 0 lisinopril (ZESTRIL) 20 mg tablet Take 1 tablet by mouth two times a day. 180 tablet 0 spironolactone (ALDACTONE) 25 mg tablet Take 1 tablet by mouth once daily. 90 tablet 0 atorvastatin (LIPITOR) 20 mg tablet Take 1 tablet by mouth once daily. 90 tablet 0 diclofenac (VOLTAREN) 1 % topical gel Apply 2 g to affected area four times daily. 450 g 0 meclizine (ANTIVERT) 25 mg tab Take 1 tablet by mouth three times daily as needed. 90 tablet 2 topiramate (TOPAMAX) 100 mg tablet Take 1 tablet by mouth daily at bedtime. 30 tablet 4 gabapentin (NEURONTIN) 600 mg tablet Take 600 mg by mouth three times a day. aspirin, enteric coated (ADULT LOW DOSE ASPIRIN) 81 mg E (more content not included)... Normal [facility] Wade 01-08-2025 [facility] Telephone (AGCARDPOB ) VINCENT MADDEN ([id number]) 1960 M Date Time Provider Department 01/08/25 TOMASZ LOUIS AGCARDPOB During your visit today, we recorded the following information about you: Tomasz Louis MD 01/08/2025 1:52 PM Signed Patient is echo shows EF a little bit lower at about 35% with previously about 45%. I think we may want to uptitrate his meds but I think the best option is for me to see him in the office next week to discuss further. See if he can come to [place] office January 16 at 11:40 AM. Thanks Mary Massey RN 01/08/2025 2:03 PM Signed Called and spoke with daughter Himanshu to relay echo results from Dr. Louis. She verbalized understanding and is agreeable to appt time. ANDRES Aburto Brandon R 01/08/2025 2:08 PM Signed Patient added 01/16/25 at 11:40. Izabela Bass Allergies As of Date: 01/08/2025 Noted Allergy Reaction BUPRENORPHINE 10/04/2020 14 - Other: See Comments Date Reviewed: 12/29/2024 Reviewed by: Kathleen Marsh LPN - Fully Assessed Reason for Visit: Appointment [186] Results [95] Prescriptions as of 01/08/2025 - cyclobenzaprine (FLEXERIL) 5 mg tablet Take 1 tablet by mouth three times a day as needed for muscle spasm. - carvedilol (COREG) 12.5 mg tablet Take 1 tablet by mouth twice daily - Tadalafil (CIALIS) 5 mg tablet Take 1 tablet by mouth once daily. Take 1 tablet by mouth daily - esomeprazole (NEXIUM) 40 mg capsule Take 1 capsule by mouth once daily. - furosemide (LASIX) 40 mg tablet Take 1 tablet by mouth once daily. - lisinopril (ZESTRIL) 20 mg tablet Take 1 tablet by mouth two times a day. - spironolactone (ALDACTONE) 25 mg tablet Take 1 tablet by mouth once daily. - atorvastatin (LIPITOR) 20 mg tablet Take 1 tablet by mouth once daily. - diclofenac (VOLTAREN) 1 % topical gel Apply 2 g to affected area four times daily. - meclizine (ANTIVERT) 25 mg tab Take 1 tablet by mouth three times daily as needed. - topiramate (TOPAMAX) 100 mg tablet Take 1 tablet by mouth daily at bedtime. - gabapentin (NEURONTIN) 600 mg tablet Take 600 mg by mouth three times a day. - aspirin, enteric coated (ADULT LOW DOSE ASPIRIN) 81 mg EC tablet Take 1 tablet by mouth once daily. Problem List As Of Date 01/08/2025 Noted Resolved Systolic congestive heart failure, NYHA class 1*12/05/2012 Obesity [E66.9] 12/05/2012 08/09/2021 ICD (implantable cardioverter-defibril lator) in*06/04/2016 Dilated cardiomyopathy (HCC) [I42.0] 12/02/2012 Palpitations [R00.2] Coronary arteriosclerosis [I25.10] LBBB (left bundle branch block) [I44.7] Hypertriglyceridemia [E78.1] 02/11/2017 History of colonic polyps [Z86.0100] 08/30/2017 08/09/2021 Hiatal hernia with GERD [K44.9, K21.9] 02/10/2018 Carpal tunnel syndrome of left wrist [G56.02] 09/28/2018 Tendinitis of right rotator cuff [M75.81] 09/02/2020 08/09/2021 Lumbosacral radiculopathy [M54.17] 08/09/2021 Sciatica [M54.30] 08/09/2021 Displacement of lumbar intervertebral disc with*08/09/2021 Athscl heart disease of [place] coronary artery *02/26/2016 Chronic systolic CHF (congestive heart failure)*11/19/2022 Preop examination [Z01.818] 11/19/2023 Gastroesophageal reflux disease [K21.9] 11/19/2023 Rectal bleeding [K62.5] 11/19/2023 HTN (hypertension) [I10] 11/19/2023 Elective replacement of Mdt Biv implantable car*05/30/2024 Encounter Status:Closed by IZABELA BASS on 01/08/25 Normal [facility] ECHOon 01-08-2025 CONCLUSIONS: - Exam indication: Routine surveillance (>1yr) of known cardiomyopathy without a change in clinical status - The left ventricle is mildly dilated. There is mild concentric left ventricular hypertrophy. Left ventricular systolic function is moderately decreased. EF = 32 5% (2D biplane) Definity contrast used for endocardial border detection. Left ventricular diastolic function was not evaluated due to pacing. - The right ventricle is normal in size. Right ventricular systolic function is normal. - The left atrial cavity is mildly dilated. - Exam was compared with the prior echocardiographic exam performed on 06/12/2021. LV function has decreased. * * * Final * * * [facility] Ech[facility] Report: Transthoracic Echo [facility] Date of service: 01/08/2025 8:05:35 AM [facility] Ordering physician: TOMASZ LOUIS Indication: Routine surveillance (>1yr) of known cardiomyopathy without a change in clinical status Technologist: Liana Pelayo and Davie Silver [facility] Interpreting physician: Lucas Ingram MD PATIENT: Name: MR. VINCENT MADDEN : 1960 Age: 64 years Gender: M History of cardiomyopathy and hypertension. Previous cardiovascular interventions: ICD implant (2015) Primary rhythm: V. Paced. Height: 172.70 cm BSA: 2.09 m Weight: 91.13 kg BMI: 30.6 kg/m Heart rate 65 bpm Blood pressure 166/83 mmHg Color Doppler was utilized to interrogate the cardiac valves assessed and spectral Doppler was utilized to determine the flow velocities and pressure gradients reported in this exam. MEASUREMENTS: Value Indexed Normal Max aortic dimension 3.2 cm Ao < 3.8 Left atrial volume 74 ml (biplane A-L) 35 ml/m Ana Maria <= 34 LV ID (diastole) 4.8 cm (2D) 2.31 cm/m LV ID (systole) 4.3 cm (2D) 2.08 cm/m IVS, leaflet tips 1.2 cm (2D) Posterior wall thickness 1.2 cm (2D) Left ventricular mass 221 g (2D) 106 g/m LV stroke volume 53 ml (2D biplane) LV end diastolic volume 166 ml (2D biplane) 79.4 ml/m 34<=EDVi<75 LV end systolic volume 113 ml (2D biplane) 54.0 ml/m Ejection Fraction 32 % (2D biplane) EF > 52 FINDINGS: LEFT VENTRICLE The left ventricle is mildly dilated. There is mild concentric left ventricular hypertrophy. Left ventricular systolic function is moderately decreased globally. Left ventricular diastolic function was not evaluated due to pacing. Definity contrast used for endocardial border detection. Wall Motion: The entire anterior wall, entire lateral wall, entire septum, entire apex, and entire inferior wall are mildly hypokinetic. RIGHT VENTRICLE The right ventricle is normal in size. Pacer wires are noted in the right ventricle. Right ventricular systolic function is normal. RV systolic tissue Doppler velocity is 9.3 cm/s. Tricuspid annular displacement is 1.9 cm. Estimated right ventricular systolic pressure is 23 mmHg consistent with normal pulmonary artery pressures. Estimated right atrial pressure is 3 mmHg based on IVC assessment. LEFT ATRIUM The left atrial cavity is mildly dilated. Pulmonary Veins: The pulmonary venous pattern showed normal systolic flow. RIGHT ATRIUM The right atrial cavity is normal in size. Pacer wires are noted in the right atrium. Inferior Vena Cava: The inferior vena cava appears normal measuring 1.7 cm. The vessel decreases greater than 50 percent with inspiration. MITRAL VALVE There is trace mitral valve regurgitation. There is mild thickening. TRICUSPID VALVE The tricuspid valve leaflets are structurally normal. There is mild (1+) tricuspid valve regurgitation. AORTIC VALVE There is trace aortic valve regurgitation. Tricuspid aortic valve. There is mild thickening. PULMONIC VALVE There is trace pulmonic valve regurgitation. There is no thickening. AORTA The visualized aorta is normal in size. Measurements - Sinus: 3.2 cm. Mid ascending aorta 3.0 cm. PULMONARY ARTERIES The pulmonary arteries are unseen or not interrogated. INTERATRIAL SEPTUM There is no evidence of intracardiac shunting as detected by Doppler. INTERVENTRICULAR SEPTUM There is abnormal motion of the interventricular septum secondary to a pacemaker. PERICARDIUM There is no pericardial effusion. There is an epicardial fat pad. [facility] Echocardiography Echocardiography Report: Transthoracic Echo [facility] Date of service: 01/08/2025 8:05:35 AM [facility] Ordering physician: TOMASZ LOUIS Indication: Routine surveillance (>1yr) of known cardiomyopathy without a change in clinical status Technologist: Liana Pelayo and Davie Silver [facility] Interpreting physician: Lucas Ingram MD PATIENT: Name: MR. VINCENT MADDEN : 1960 Age: 64 years Gender: M History of cardiomyopathy and hypertension. Previous cardiovascular interventions: ICD implant (2016) Primary rhythm: V. Paced. Height: 172.70 cm BSA: 2.09 m Weight: 91.13 kg BMI: 30.6 kg/m Heart rate 65 bpm Blood pressure 166/83 mmHg Color Doppler was utilized to interrogate the cardiac valves assessed and spectral Doppler was utilized to determine the flow velocities and pressure gradients reported in this exam. MEASUREMENTS: Value Indexed Normal Max aortic dimension 3.2 cm Ao < 3.8 Left atrial volume 74 ml (biplane A-L) 35 ml/m Ana Maria <= 34 LV ID (diastole) 4.8 cm (2D) 2.31 cm/m LV ID (systole) 4.3 cm (2D) 2.08 cm/m IVS, leaflet tips 1.2 cm (2D) Posterior wall thickness 1.2 cm (2D) Left ventricular mass 221 g (2D) 106 g/m LV stroke volume 53 ml (2D biplane) LV end diastolic volume 166 ml (2D biplane) 79.4 ml/m 34<=EDVi<75 LV end systolic volume 113 ml (2D biplane) 54.0 ml/m Ejection Fraction 32 % (2D biplane) EF > 52 FINDINGS: LEFT VENTRICLE The left ventricle is mildly dilated. There is mild concentric left ventricular hypertrophy. Left ventricular systolic function is moderately decreased globally. Left ventricular diastolic function was not evaluated due to pacing. Definity contrast used for endocardial border detection. Wall Motion: The entire anterior wall, entire lateral wall, entire septum, entire apex, and entire inferior wall are mildly hypokinetic. RIGHT VENTRICLE The right ventricle is normal in size. Pacer wires are noted in the right ventricle. Right ventricular systolic function is normal. RV systolic tissue Doppler velocity is 9.3 cm/s. Tricuspid annular displacement is 1.9 cm. Estimated right ventricular systolic pressure is 23 mmHg consistent with normal pulmonary artery pressures. Estimated right atrial pressure is 3 mmHg based on IVC assessment. LEFT ATRIUM The left atrial cavity is mildly dilated. Pulmonary Veins: The pulmonary venous pattern showed normal systolic flow. RIGHT ATRIUM The right atrial cavity is normal in size. Pacer wires are noted in the right atrium. Inferior Vena Cava: The inferior vena cava appears normal measuring 1.7 cm. The vessel decreases greater than 50 percent with inspiration. MITRAL VALVE There is trace mitral valve regurgitation. There is mild thickening. TRICUSPID VALVE The tricuspid valve leaflets are structurally normal. There is mild (1+) tricuspid valve regurgitation. AORTIC VALVE There is trace aortic valve regurgitation. Tricuspid aortic valve. There is mild thickening. PULMONIC VALVE There is trace pulmonic valve regurgitation. There is no thickening. AORTA The visualized aorta is normal in size. Measurements - Sinus: 3.2 cm. Mid ascending aorta 3.0 cm. PULMONARY ARTERIES The pulmonary arteries are unseen or not interrogated. INTERATRIAL SEPTUM There is no evidence of intracardiac shunting as detected by Doppler. INTERVENTRICULAR SEPTUM There is abnormal motion of the interventricular septum secondary to a pacemaker. PERICARDIUM There is no pericardial effusion. There is an epicardial fat pad. CONCLUSIONS: - Exam indication: Routine surveillance (>1yr) of known cardiomyopathy without a change in clinical status - The left ventricle is mildly dilated. There is mild concentric left ventricular hypertrophy. Left ventricular systolic function is moderately decreased. EF = 32 5% (2D biplane) Definity contrast used for endocardial border detection. Left ventricular diastolic function was not evaluated due to pacing. - The right ventricle is normal in size. Right ventricular systolic function is normal. - The left atrial cavity is mildly dilated. - Exam was compared with the prior CC echocardiographic exam performed on 06/12/2021. LV function has decreased. * * * Final * * * [facility] [employer] Image : [id number] amicsSISUID Normal [facility] CNOVon 12-29-2024 CNOV Office Visit (AGSPHWG) VINCENT MADDEN ([id number]) 1960 M Date Time Provider Department 12/29/24 8:00 AM MADELYN DC AGSPHWG During your visit today, we recorded the following information about you: Pulse Respiration Normal [facility] XR CERV 6V AP/LAT/FLX/EXT/OB Daniel 12-29-2024 XR CERV 6V AP/LAT/FLX/EXT/OBL * * *Final Report* * * DATE OF EXAM: Dec 29 2024 9:37AM GRX [id number] - XR CERV 6V AP/LAT/FLX/EXT/OBL / PROCEDURE REASON: Cervical pain * * * * Physician Interpretation * * * * EXAMINATION: XR CERV 6V AP/LAT/FLX/EXT/OBL CLINICAL HISTORY: Cervicalgia TECHNIQUE: XR CERV 6V AP/LAT/FLX/EXT/OBL with 6 views on 6 images MQ: [id number] COMPARISON: Radiographs 05/29/2006 RESULT: Counting Reference: Craniocervical junction on lateral view. Normal. Post-op assessment: N/A Alignment: Normal. No scoliosis or listhesis. No evidence of dynamic instability on flexion/extension views. Vertebral bodies: Normal in height. No vertebral fracture. Spine articulations: Multilevel degenerative changes with endplate osteophyte formation and disc space narrowing, greatest and severe at C5-C6 and C6-C7. Multilevel bilateral osseous neural foraminal narrowing. Soft tissues: Normal. IMPRESSION: No acute abnormality. Severe multilevel degenerative changes, progressed compared to 2005. No evidence of dynamic instability. Transportation Planning Engineer: PSCB Transcribe Date/Time: Jan 01 2025 4:17P Dictated by : AMICOL WHITING DO This examination was interpreted and the report reviewed and electronically signed by: MAICOL WHITING DO on Jan 01 2025 4:21PM EST [id number] Normal [facility] ED PROV NOTEon 12-24-2024 ED PROV NOTE HNO ID: [id number] Author: JIM MALHOTRA PA-C Service: Emergency Medicine Author Type: Physician Check Out Clerk Type: ED Provider Notes Filed: 12/24/2024 17:56 Note Text: ED Provider Note Patient Name: Vincent Madden : 1960 SERVICE DATE: 12/24/24 History Patient presents with: Neck Pain: Pt arrives to triage c/o neck pain since Wednesday radiating to upper back. Denies falls/injuries. Pt reports pain worsens when turning head to the left. Vincent is a 64-year-old male with cardiac history presenting today with posterior left cervical paraspinal symptoms despite no trauma or other inciting event. Reports that symptoms have been ongoing for the past several days despite him trying pjmf-wum-wymwtao medications as well as topical ice. He reports pain with looking lateral rotation towards the left. Denies any numbness or tingling denies any recent fever or chills. Denies any weakness or changes in vision or hearing. PAST MEDICAL HISTORY Diagnosis Date Abnormal EKG Atherosclerotic heart disease of [place] coronary artery without angina pectoris Automatic implantable cardioverter-defibril lator in situ BBB (bundle branch block) Benign neoplasm of colon Cardiomegaly Cardiomyopathy (HCC) NIDCM CHF (congestive heart failure) systolic 12/02/2012 Chronic pain of left thumb Coronary arteriosclerosis Dilated cardiomyopathy (HCC) 12/02/2012 Latest Echo 05/2016 with EF 40% can be found in Care Everywhere Dyspnea Epigastric pain Fatigue GERD (gastroesophageal reflux disease) Hiatal hernia History of colonic polyps 08/30/2017 Added automatically from request for surgery [id number] HTN (hypertension) 11/19/2023 LBBB (left bundle branch block) Left ventricular failure (HCC) Obesity 12/05/2012 Palpitations SOB (shortness of breath) pt stated before pacemaker and defib placed Tendinitis of right rotator cuff 09/02/2020 PAST SURGICAL HISTORY Procedure Laterality Date CARDIAC CATH Left 06/2011 COLONOSCOPY SCREENING N/A 12/09/2023 COLONOSCOPY W/BIOPSY SINGLE/MULTIPLE 12/24/2017 EGD TRANSORAL BIOPSY SINGLE/MULTIPLE 12/24/2017 EGD W/O BRSH SPEC VARICIES INJ N/A 12/09/2023 LOW BACK DISK SURGERY PACEMAKER 02/26/2016 [employer]onic pacemaker and defib PAST SURGICAL HISTORY OF pin removed from the left thumb FAMILY HISTORY Problem Relation Age of Onset Coronary Artery Disease Mother a. CABG, carotid artery endarterectomy bilateral Breast Cancer Mother Heart Mother Coronary Artery Disease Father a. CABG, valve replacement Heart Father None Brother 3 brothers and one sister a.OK Cancer Brother one brother a. Colon Cancer Brother other (scd) Other uncle and aunt scd other (Heart Attack) Other Heart Paternal Uncle x2 Heart Paternal Aunt Social History Tobacco Use Smoking status: Former Current packs/day: 0.00 Average packs/day: 1 pack/day for 10.0 years (10.0 ttl pk-yrs) Types: Cigarettes Start date: 12/05/1996 Quit date: 12/05/2006 Years since quittin.0 Smokeless tobacco: Never Vaping Use Vaping status: Never Used Substance and Sexual Activity Alcohol use: No Comment: heavy alcohol consumption and quit in 1987 Drug use: No Sexual activity: Yes Partners: Female control/protection: Not used ALLERGIES Allergen Reactions Buprenorphine Other: See Comments Review of Systems Physical Exam Vitals BP Pulse Temp Temp src Resp SpO2 Weight Height 12/24/24 1604 12/24/24 1603 12/24/24 1603 12/24/24 1603 12/24/24 1603 12/24/24 1603 12/24/24 1603 12/24/24 1603 179/82 79 36.4 ?C (97.5 ?F) Oral 20 95 % 87.1 kg (192 lb) 1.727 m (5' 8) Physical Exam Vital signs noted. General: Well-developed patient in no acute distress. Alert and oriented x3. Skin: Warm and dry with no visualized rashes. HEENT: Head appears normocephalic and atraumatic. Face appears atraumatic without periorbital or parotid swelling. Facial sensation is intact to light touch in all 3 divisions bilaterally. Face is symmetric with normal eyebrow lift, eye closure and smile. Eyes with no conjunctival injection, no discharge noted, EOMs intact, PERRL. Ears hearing appears normal and symmetric to rubbing fingers. Auricular position is symmetric and does not appear displaced. Nontender to palpation at the tragus and auricle. Ear canals are patent. Visualized TMs without significant bulging or erythema. Nares appear patent bilaterally without significant drainage. No sinus tap tenderness bilaterally. Oral mucosa without obvious ulceration or lesions. Palate elevates symmetrically. Tongue is midline with normal side to side movements and no obvious atrophy. Oropharynx without erythema or exudate. Neck is supple. Trachea midline. No signs of nuchal rigidity. Musculoskeletal: Posterior neck examined with no rashes lesions ecchymosis or significant swelling. He does have left paracervical tenderness with palpable spasm, (more content not included)... Normal [facility] CNOVon 09-05-2024 CNOV Office Visit (AGCARK ) VINCENT MADDEN ([id number]) 1960 M Date Time Provider Department 09/05/24 8:30 AM SUZY BURRIS During your visit today, we recorded the following information about you: Pulse Respiration Blood pressure Weight 84/minute 18/minute 144/82 91.1 kg Height 1.727 m Aga Hector LPN 09/05/2024 8:15 AM Signed Patient denies cardiac complaints or symptoms. Suzy Burris APRN.TECHNICAL SERVICES REPRESENTATIVE 09/05/2024 8:25 AM Signed Cardiomyopathy What is cardiomyopathy? Cardiomyopathy is a disease of the heart muscle. The heart muscle gets bigger, thick, or stiff. This can weaken the heart and make it hard for the heart to pump blood. There are 3 main types of cardiomyopathy: Dilated cardiomyopathy. As the heart muscle weakens, it is less able to pump enough blood to the body. Because the heart can't pump as well, the main pumping chamber of the heart (the left ventricle) fills with blood and cannot empty. The extra blood in the left ventricle causes the heart muscle to stretch, just like a balloon expands when you put air into it. The heart slowly gets bigger over several weeks to months. Hypertrophic cardiomyopathy (HCM). The heart muscle cells get bigger. This makes the reece of the heart muscle thick. Thick reece are usually very stiff, making it hard for the heart to pump well. Restrictive cardiomyopathy. The heart muscle gets very stiff. The stiffness makes it hard for the heart to fill with blood and pump properly. What is the cause? The heart muscle may be weakened by many things, such as: Heart attacks Coronary artery disease (CAD) Untreated high blood pressure Chronic illness, such as diabetes or thyroid disease A genetic problem inherited from your parents Cocaine or heavy alcohol use Infection, especially by a virus Some cancer treatments Often what causes the heart to get bigger and weaker is not known. What are the symptoms? Cardiomyopathy may not cause symptoms. If it does, some possible symptoms are: Chest pain, especially after physical activity or heavy meals Shortness of breath Swelling of the legs or ankles Tiredness Dizziness Fainting during physical activity How is it diagnosed? Your healthcare provider will ask about your symptoms and medical history and examine you. Tests may include: Chest X-ray An ECG (also called an EKG or electrocardiogram), which measures and records your heartbeat. You may have an ECG while you are resting or while you exercise on a treadmill. You may also be asked to wear a small portable ECG monitor for a few days or sometimes a couple weeks. An echocardiogram, which uses sound waves (ultrasound) to see how well your heart is pumping and can show areas of heart muscle that are thick Angiogram, which is a series of X-rays taken after your healthcare provider injects a special dye into your blood vessels to show the reece of the arteries and any blockage Your provider may suggest testing other members of your family if he or she thinks that you may have an inherited form of cardiomyopathy. How is it treated? Treatment depends on the type of cardiomyopathy you have and what caused it. Medicines that may be prescribed include: Beta monik or calcium channel monik to relax the heart muscle. This helps lower blood pressure and heart rate so that the heart does not have to work as hard. Vasodilator to open up the blood vessels and let more blood flow through. This helps lower blood pressure so the heart does not have to work as hard. MARTHA inhibitor to relax blood vessels and lower blood pressure. This helps the heart to pump more blood out to the body. Diuretic (water pill) to help your body get rid of the extra fluid that can build up when the heart does not pump well. Blood thinner (anticoagulant) to help prevent blood clots that could block the arteries and cause a stroke. Procedures that may be used to treat cardiomyopathy include: Removal of a piece of heart muscle (a procedure called myectomy) with a heart catheter or surgery Insertion of an artificial pacemaker or an implantable cardioverter-defibril lator (ICD) to treat abnormal heart rhythms. How can I take care of myself? Take your medicines regularly, carefully following your healthcare provider?s instructions. Weigh yourself regularly and let your provider know if you suddenly gain weight. Avoid salty foods and eat a healthy diet with lots of fruits and vegetables. Ask your provider: ?How and when you will hear your test results ?How long it will take to recover ?How much fluid you should drink every day. ?Ask your provider how much you can exercise and try to remain active. Find out what activities you should avoid. For some types of cardiomyopathy certain sports or activities are not recommended. ?How to take care of yourself a (more content not included)... Normal [facility] ECG B/O W INTERP (MED OFFICE )on 09-05-2024 atrial sensed ventricular paced rhythm, 78 bpm, NM 174 ms, QRS 148 ms, QT/QTc 436/479 ms. [facility] ICD REMOTE CHECKon AV Delay Adaptive Paced Minimum (ms) 160 ms [facility] AV Delay Adaptive Sensed Minimum (ms) 140 ms [facility] AV Delay Adaptive Status ENABLED [facility] Battery Voltage 3.05 V [facility] Cameron LV Pacing Amplitude (volts) 2.5 V [facility] Cameron LV Pacing Polarity BI [facility] Cameron LV Pacing Pulse Width (ms) 0.4 ms [facility] Cameron RA Pacing Amplitude (volts) 1.5 V [facility] Cameron RA Pacing Polarity BI [facility] Cameron RA Pacing Pulse Width (ms) 0.4 ms [facility] Cameron RA Sensing Amplitude (mvolts) 0.45 mV [facility] RA Sensing Blanking Period (ms) 150 ms [facility] RA Sensing Polarity BI [facility] Cameron RA Sensing Refractory Period (ms) Auto [facility] Cameron RV Pacing Amplitude (volts) 2.0 V [facility] RV Pacing Polarity BI [facility] Cameron RV Pacing Pulse Width (ms) 0.4 ms [facility] RV Sensing Amplitude (mvolts) 0.3 mV [facility] Cameron RV Sensing Blanking Period (ms) 210 ms [facility] Cameron RV Sensing Polarity BI [facility] Detection Configuration (Vent) 1 - Zone [facility] ICD AFIB DetectionStatus ENABLED [facility] ICD ATAF DetectionInterval ms 350 ms [facility] ICD ATAF DetectionStatus ENABLED [facility] ICD FastVT DetectionStatus DISABLED [facility] ICD-ADLRATE_BPM 95 {beats}/min [facility] ICD-AMS EPISODES 171 {beats}/min [facility] ICD-ATP Episodes (Vent) [address] [facility] ICD-ATRIALFIBRILLATION 0 Cl [facility] ICD-Device Mfg MDT [facility] ICD-LEADIMPEDANCEATRIAL 361 [address] [facility] ICD-Percent Pacing (Vent) 3.67 % [facility] ICD-PMT Intervention Enabled [facility] ICD-PVC Intervention Enabled [facility] ICD-Rate Modulation Acceleration Reaction 30 s [facility] ICD-Rate Modulation Deceleration Exercise [facility] ICD-Rate Modulation [facility] 3 [facility] ICD-Rate Modulation Threshold Low [facility] ICD-Shocks Aborted (Vent) 0 [facility] [id number] 0 [facility] ICD-SHOCKSABORTED 0 [facility] ICD-SHOCKSDELIVEREDVENTR ICULAR 0 [facility] ICD-Ventricular Fibrillation 0 [facility] ICD-VVDELAY_MS 0 ms [facility] Implant Date 05/30/2024 [facility] Lead Impedance (LV) 437 ohm [facility] Lead Impedance (RV) 361 ohm [facility] Lead Impedance High Voltage 50 ohm [facility]1 [facility] Lead2 [facility] Lead3 Mfg Medtronic [facility] Location LV [facility] Location RA [facility] Location RV [facility] Lower Rate (bpm) 50 {beats}/min [facility] LV PACING % 96.58 % [facility] Max Sensor Rate (bpm) 140 {beats}/min [facility] MDT_PROG_TACHY_ZONE_DETE CTIONS_STATUS ENABLED [facility] Model [id number] Winfred HF Quad ROAD GRADER OPERATOR-D MRI [facility] Model 4298/88 LV Lead [facility] Model 5076-52 Capsurefix Novus [facility] Model 0066M66 [facility] Pacing Mode DDD [facility] Serial Number [id number] [facility] Serial Number [id number] [facility] Serial Number [id number] [facility] Serial Number [id number] [facility] Test Charge Energy 18.0 [facility] Test Charge Time 3.5 s [facility] Therapy Status (Vent) Enabled [facility] Thresh LV Capture Amplitude (volts) 1.875 V [facility] Thresh LV Capture Duration (ms) 0.4 ms [facility] Thresh RA Capture Amplitude (volts) 0.5 V [facility] Thresh RA Capture Duration (ms) 0.4 ms [facility] Thresh RA Sensing Amplitude (mvolts) 2.1 mV [facility] Thresh RV Capture Amplitude (VOLTS) 0.75 V [facility] Thresh RV Capture Duration (MS) 0.4 ms [facility] Thresh RV Sensing Amplitude (MVOLTS) 10.8 mV [facility] Tracking Rate (bpm) 140 {beats}/min [facility] VF Zone Detection Interval 320 ms [facility] VF Zone Therapy Configuration 1 ATP(s) + 6 Shock(s) [facility] ICD remote interrogation. Presenting EGM p-synch BIV paced @ 68 ppm. No VT/VF events and no mode switch episodes since last check. Sensing and impedance values stable. EGMs w/o noise. Recommended replacement time is 9.2 years. Charge times stable. Anthony CVT NOTE TO PROVIDERS: CARD Flowsheets contain detailed device programming and testing data. Paceart/Interrogation PDF can be found under CARDIAC DATA AND REPORT, Scanned Documents section. PACEART 09/05/2024 Formattin g of this note might be different from the original. ICD remote interrogation. Presenting EGM p-synch BIV paced @ 68 ppm. No VT/VF events and no mode switch episodes since last check. Sensing and impedance values stable. EGMs w/o noise. Recommended replacement time is 9.2 years. Charge times stable. [facility] TO PROVIDERS: CARD Flowsheets contain detailed device programming and testing data. Paceart/Interrogation PDF can be found under CARDIAC DATA AND REPORT, Scanned Documents section. [facility] No Panel Informationon 09-05 BLANK _ [facility] ICD-ATRIALTACHYCARDIA 0 [facility] ICD-Fast Ventricular Tachycardia 0 [facility] Implant Date 02/26/2016 [facility] CNNURSEon 06-09-2024 CNNURSE Nurse Visit (AGCARDPOB) VINCENT MADDEN ([id number]) 1960 M Date Time Provider Department 06/09/24 8:00 AM NURSE CARD LUZ MATHUR During your visit today, we recorded the following information about you: Temperature 98.1 degrees Flori Dhillon RN 06/09/2024 2:26 PM Signed Lt ACW Aquacel dressing removes with use of adhesive dissolver. Incision is well approximated without bleeding, drainage or redness. Moderate edema just at device site. Pt denies pain at site or fever/chills. Pt voices understanding that he may shower but not submerge in water. Pt encouraged to keep incision open to air. Pt discouraged from applying any ointments or lotions to incision. Pt will call our office should incision develop redness or drainage. Pt will call our office with new pain or fever. ANDRES Panchal Drew, APRN.BRANDEN 06/09/2024 2:26 PM Signed Wound check reviewed and signed. Jackson Landin APRN.TECHNICAL SERVICES REPRESENTATIVE June 09, 2024 2:26 PM Referring Provider: SELF [200] Allergies As of Date: 06/09/2024 Noted Allergy Reaction BUPRENORPHINE 10/04/2020 14 - Other: See Comments Date Reviewed: 05/30/2024 Reviewed by: Ileana Elizondo RN - Fully Assessed Reason for Visit: Wound Check [133] Primary Visit Diagnosis:ICD (implantable cardioverter-defibril lator) in place [Z95.810] Prescriptions as of 06/09/2024 - carvedilol (COREG) 12.5 mg tablet Take 1 tablet by mouth twice daily - Tadalafil (CIALIS) 5 mg tablet Take 1 tablet by mouth once daily. Take 1 tablet by mouth daily - esomeprazole (NEXIUM) 40 mg capsule Take 1 capsule by mouth once daily. - furosemide (LASIX) 40 mg tablet Take 1 tablet by mouth once daily. - lisinopril (ZESTRIL) 20 mg tablet Take 1 tablet by mouth two times a day. - spironolactone (ALDACTONE) 25 mg tablet Take 1 tablet by mouth once daily. - atorvastatin (LIPITOR) 20 mg tablet Take 1 tablet by mouth once daily. - diclofenac (VOLTAREN) 1 % topical gel Apply 2 g to affected area four times daily. - meclizine (ANTIVERT) 25 mg tab Take 1 tablet by mouth three times daily as needed. - topiramate (TOPAMAX) 100 mg tablet Take 1 tablet by mouth daily at bedtime. - gabapentin (NEURONTIN) 600 mg tablet Take 600 mg by mouth three times a day. - aspirin, enteric coated (ADULT LOW DOSE ASPIRIN) 81 mg EC tablet Take 1 tablet by mouth once daily. Problem List As Of Date 06/09/2024 Noted Resolved Systolic congestive heart failure, NYHA class 1*12/05/2012 Obesity [E66.9] 12/05/2012 08/09/2021 ICD (implantable cardioverter-defibril lator) in*06/04/2016 Dilated cardiomyopathy (HCC) [I42.0] 12/02/2012 Palpitations [R00.2] Coronary arteriosclerosis [I25.10] LBBB (left bundle branch block) [I44.7] Hypertriglyceridemia [E78.1] 02/11/2017 History of colonic polyps [Z86.010] 08/30/2017 08/09/2021 Hiatal hernia with GERD [K44.9, K21.9] 02/10/2018 Carpal tunnel syndrome of left wrist [G56.02] 09/28/2018 Tendinitis of right rotator cuff [M75.81] 09/02/2020 08/09/2021 Lumbosacral radiculopathy [M54.17] 08/09/2021 Sciatica [M54.30] 08/09/2021 Displacement of lumbar intervertebral disc with*08/09/2021 Athscl heart disease of [place] coronary artery *02/26/2016 Chronic systolic CHF (congestive heart failure)*11/19/2022 Preop examination [Z01.818] 11/19/2023 Gastroesophageal reflux disease [K21.9] 11/19/2023 Rectal bleeding [K62.5] 11/19/2023 HTN (hypertension) [I10] 11/19/2023 Elective replacement of Mdt Biv implantable car*05/30/2024 Encounter Status:Closed by JACKSON LANDIN on 06/09/24 [facility] ANES POSTPROC EVALon 024 ANES POSTPROC EVAL HNO ID: [id number] Author: DARRON EVANS MD Service: Anesthesiology Author Type: Anesthesiologist Type: Anesthesia Postprocedure Evaluation Filed: 05/30/2024 17:28 Note Text: POST ANESTHESIA EVALUATION NOTE : 1960 Procedure Summary Date: 05/30/24 Room / Location: [facility] 01 / [place] EP LAB Anesthesia Start: 925 Anesthesia Stop: 1112 Procedure: REMOVAL AND REPLACEMENT IMPLANTABLE DEFIBRILLATOR PULSE GENERATOR MULTI LEAD SYSTEM (Left) Diagnosis: Biventricular implantable cardioverter-defibril lator (ICD) at end of device life (Biventricular implantable cardioverter-defibril lator (ICD) at end of device life [Z45.02]) Surgeons: Pat Monreal MD Responsible Provider: Darron Evans MD Anesthesia Type: MAC ASA Status: 3 Anesthesia Type: MAC Last Vitals Vitals Value Taken Time BP 130/73 05/30/24 1124 Temp 05/30/24 1728 Pulse 57 05/30/24 1125 Resp 16 05/30/24 1125 SpO2 97 % 05/30/24 1126 Vitals shown include unfiled device data. Post Anesthesia Patient Status Patient Evaluation: PACU. PACU/ICU Patient Condition: stable. Anticipated Disposition: phase 2 then home. Neurological Status: aware and responsive. Pulmonary Status: breathing comfortably on supplemental oxygen Airway Control: returned to baseline unsupported. Cardiovascular Status: stable. Pain Management: clinically adequate Postoperative Hydration: acceptable. Intraoperative Events: no significant anesthesia events Post Operative Nausea/Vomiting Status: no significant post operative nausea or vomiting Recommendation: continue current plan of care. Anesthesia Observations No Documentation SIGNATURE: Darron Evans MD PATIENT NAME: Vincent Madden DATE: May 30, 2024 TIME: 5:28 PM CSN: [id number] [facility] ANES PRE-OPon 05-30-2024 ANES PRE-OP HNO ID: [id number] Author: DARRON EVANS MD Service: Anesthesiology Author Type: Anesthesiologist Type: Anesthesia Preprocedure Evaluation Filed: 05/30/2024 17:28 Note Text: ANESTHESIOLOGY DAY OF SURGERY NOTE LBBB NICM - furosemide, spirinolactone HTN - carvedilol GERD - PPI Psych - topirimate, gabapentin Echo 2020 EF = 45% : 1960 Procedure Information Anesthesia Start Date/Time: 05/30/24925 Procedure: REMOVAL AND REPLACEMENT IMPLANTABLE DEFIBRILLATOR PULSE GENERATOR MULTI LEAD SYSTEM (Left) - HANDP ON 05/[address] GRADER OPERATOR-D GEN CHANGE POD; SAME DAY D/C Location: [place] [address] / [facility] LAB Surgeons: Pat Monreal MD Estimated body mass index is 28.65 kg/m? as calculated from the following: Height as of this encounter: 172.7 cm (5' 8). Weight as of this encounter: 85.5 kg (188 lb 6.4 oz). Most recent hematocrit and potassium results: Hematocrit 40.8 05/30/2024 Potassium 4.4 05/30/2024 Relevant Problems No relevant active problems I - PHYSICAL EVALUATION AIRWAY Patient intubated: No. Tracheostomy tube not present Mallampati: II. TM distance: >3 FB. Neck ROM: full ROM without neurological symptoms. Mouth opening: adequate. Short neck: no. Thick neck: no Valdez present: no DENTAL Dental findings: poor dentition and missing tooth/teeth. II - ANESTHESIA PLAN ASA Score: 3 Anesthetic Plan: MAC NPO Status: adequate Beta Monik Monitoring Plan Monitoring plan: standard ASA. Post Procedure Analgesic Plan Informed Consent Anesthetic risks, benefits, alternatives, personnel and consent discussed: yes. Patient / Responsible Libertarian agrees to proceed: yes Patient / Surrogate agrees to blood products: blood products not planned Potential Anesthesia issues that may suggest increased risk of complications or contraindication to planned procedure: none. Vitals Value Taken Time BP 116/81 05/30/24 0854 Pulse Resp 17 05/30/24 0854 Temp 35.8 ?C (96.4 ?F) 05/30/24 0851 SpO2 97 % 05/30/24 0854 No current facility-administered medications on file as of 05/30/2024. Outpatient Medications as of 05/30/2024 Medication Sig carvedilol (COREG) 12.5 mg tablet Take 1 tablet by mouth twice daily esomeprazole (NEXIUM) 40 mg capsule Take 1 capsule by mouth once daily. furosemide (LASIX) 40 mg tablet Take 1 tablet by mouth once daily. lisinopril (ZESTRIL) 20 mg tablet Take 1 tablet by mouth two times a day. spironolactone (ALDACTONE) 25 mg tablet Take 1 tablet by mouth once daily. atorvastatin (LIPITOR) 20 mg tablet Take 1 tablet by mouth once daily. diclofenac (VOLTAREN) 1 % topical gel Apply 2 g to affected area four times daily. gabapentin (NEURONTIN) 600 mg tablet Take 600 mg by mouth three times a day. aspirin, enteric coated (ADULT LOW DOSE ASPIRIN) 81 mg EC tablet Take 1 tablet by mouth once daily. Tadalafil (CIALIS) 5 mg tablet Take 1 tablet by mouth once daily. Take 1 tablet by mouth daily (Patient taking differently: Take by mouth once daily. Take 1 tablet by mouth daily) meclizine (ANTIVERT) 25 mg tab Take 1 tablet by mouth three times daily as needed. topiramate (TOPAMAX) 100 mg tablet Take 1 tablet by mouth daily at bedtime. I have interviewed and examined the patient. I have reviewed the medical record and/or the pre-anesthesia evaluation, pertinent labs, and test results. This contains updated information obtained within 48 hours of Surgery/Procedure. SIGNATURE: Violeta Escalera MD PATIENT NAME: Vincent Madden DATE: May 30, 2024 TIME: 10:03 AM CSN: [id number] Normal [facility] Basic metabolic 2000 panelon 05-30-2024 Anion gap [Moles/Vol] 11 mmol/L Normal 8-15 [facility] Comment on above: Order Comment: Speci kelle Type: BLOOD SPECIMENOrdering Facility: [facility] Address: [address] [place] [address] Performed By: #### 2 4321-2 ####[facility] LABORATORYCLIA [id number] [place] [address] [place] Calcium [Mass/Vol] 9.3 mg/dL Normal 8.5-10.2 [facility] Comment on above: Order Comment: Speci men Type: BLOOD SPECIMENOrdering Facility: [facility] Address: [address] [place] [address] Performed By: #### 2 4321-2 ####[facility] LABORATORYCLIA [id number] [place] [id number] [place] Chloride [Moles/Vol] 109 mmol/L High 98-107 [facility] Comment on above: Order Comment: Speci men Type: BLOOD SPECIMENOrdering Facility: [facility] Address: [address] [place] [address] Performed By: #### 2 4321-2 ####[facility] LABORATORYCLIA [id number] [address] [place] CO2 [Moles/Vol] 20 mmol/L Low 22-30 [facility] Comment on above: Order Comment: Speci men Type: BLOOD SPECIMENOrdering Facility: [facility] Address: [address] [place] [address] Performed By: #### 2 4321-2 ####[facility] LABORATORYCLIA [id number] [address] STATES OF [facility] Creatinine [Mass/Vol] 1.01 mg/dL Normal 0.73-1.22 [facility] Comment on above: Order Comment: Speci men Type: BLOOD SPECIMENOrdering Facility: [facility] Address: [address] [place] [address] Performed By: #### 2 4321-2 ####[facility] LABORATORYCLIA [id number] [address] Creatinine and Glomerular filtration rate.predicted panel (S/P/Bld) 83 mL/min/1.73m??? Normal >=60 [facility] Comment on above: Order Comment: Speci men Type: BLOOD SPECIMENOrdering Facility: [facility] Address: [address] [place] [address] Result Comment: Jeanne mated Glomerular Filtration Rate (eGFR) is calculated using the 2020 CKD-EPI creatinine equation. This equation utilizes serum creatinine, sex, and age as parameters. The creatinine assay has traceable calibration to isotope dilution-mass spectrometry. Refer to KDIGO guidelines for clinical interpretation. In patients with unstable renal function, e.g. those with acute kidney injury, the eGFR may not accurately reflect actual GFR. Performed By: #### 2 4321-2 ####[facility] INDIANACLIA [id number] [place] [address] [place] Glucose [Mass/Vol] 105 mg/dL High 74-99 [facility] Comment on above: Order Comment: Karlene nina Type: BLOOD SPECIMENOrdering Facility: [facility] Address: [address] [place] [address] Result Comment: The [place] Diabetes [employer] (ADA) provides guidance for cutoff values for fasting glucose and random glucose. The ADA defines fasting as no caloric intake for at least 8 hours. Fasting plasma glucose results between 100 to 125 mg/dL indicate increased risk for diabetes (prediabetes). Fasting plasma glucose results greater than or equal to 126 mg/dL meet the criteria for diagnosis of diabetes. In the absence of unequivocal hyperglycemia, results should be confirmed by repeat testing. In a patient with classic symptoms of hyperglycemia or hyperglycemic crisis, random plasma glucose results greater than or equal to 200 mg/dL meet the criteria for diagnosis of diabetes. Reference: Standards of Medical Care in Diabetes 2016, [place] [employer]. Diabetes Care. 2016.39(Suppl 1). Performed By: #### 2 4321-2 ####[facility] INDIANACLIA [id number] [place] [address] [place] Potassium [Moles/Vol] 4.4 mmol/L Normal 3.7-5.1 [facility] Comment on above: Order Comment: Karlene nina Type: BLOOD SPECIMENOrdering Facility: [facility] Address: [address] [place] [address] Performed By: #### 2 4321-2 ####[facility] LABORATORYCLIA [id number] [place] [id number] [place] Sodium [Moles/Vol] 140 mmol/L Normal 136-144 [facility] Comment on above: Order Comment: Karlene nina Type: BLOOD SPECIMENOrdering Facility: [facility] Address: [address] [place] [id number] Performed By: #### 2 4321-2 ####[facility] LABORATORYCLIA [id number] [address] STATES OF [facility] Urea nitrogen [Mass/Vol] 28 mg/dL High 9-24 [facility] Comment on above: Order Comment: Speci men Type: BLOOD SPECIMENOrdering Facility: [facility] Address: [address] [place] [address] Performed By: #### 2 4321-2 ####[facility] LABORATORYCLIA [id number] [address] CBC panel Auto (Bld)on 05-30 Erythrocyte distribution width (RBC) [Ratio] 12.2 % Normal 11.5-15.0 [facility] Comment on above: Order Comment: Speci men Type: BLOOD SPECIMENOrdering Facility: [facility] Address: [address] [place] [address] Performed By: #### 5 8410-2 ####[facility] LABORATORYCLIA [id number] [address] Hematocrit (Bld) [Volume fraction] 40.8 % Normal 39.0-51.0 [facility] Comment on above: Order Comment: Speci men Type: BLOOD SPECIMENOrdering Facility: [facility] Address: [address] [place] [address] Performed By: #### 5 8410-2 ####[facility] LABORATORYCLIA [id number] [address] Hemoglobin (Bld) [Mass/Vol] 14.5 g/dL Normal 13.0-17.0 [facility] Comment on above: Order Comment: Speci men Type: BLOOD SPECIMENOrdering Facility: [facility] Address: [address] [place] [address] Performed By: #### 5 8410-2 ####[facility] LABORATORYCLIA [id number] [address] MCH (RBC) [Entitic mass] 32.2 pg Normal 26.0-34.0 [facility] Comment on above: Order Comment: Speci men Type: BLOOD SPECIMENOrdering Facility: [facility] Address: [address] [place] [address] Performed By: #### 5 8410-2 ####[facility] LABORATORYCLIA [id number] [address] MCHC (RBC) [Mass/Vol] 35.5 g/dL Normal 30.5-36.0 [facility] Comment on above: Order Comment: Speci men Type: BLOOD SPECIMENOrdering Facility: [facility] Address: [address] [place] [address] Performed By: #### 5 8410-2 ####[facility] LABORATORYCLIA [id number] [address] MCV (RBC) [Entitic vol] 90.5 fL Normal 80.0-100.0 [facility] Comment on above: Order Comment: Speci men Type: BLOOD SPECIMENOrdering Facility: [facility] Address: [address] [place] [address] Performed By: #### 5 8410-2 ####[facility] LABORATORYCLIA [id number] [address] Nucleated RBC (Bld) [#/Vol] 10*3/uL Normal <0.01 [facility] Comment on above: Order Comment: Speci men Type: BLOOD SPECIMENOrdering Facility: [facility] Address: [address] [place] [address] Performed By: #### 5 8410-2 ####[facility] LABORATORYCLIA [id number] [address] Platelet mean volume (Bld) [Entitic vol] 9.8 fL Normal 9.0-12.7 [facility] Comment on above: Order Comment: Speci men Type: BLOOD SPECIMENOrdering Facility: [facility] Address: [address] [place] [address] Performed By: #### 5 8410-2 ####[facility] LABORATORYCLIA [id number] [address] Platelets (Bld) [#/Vol] 153 10*3/uL Normal 150-400 [facility] Comment on above: Order Comment: Speci men Type: BLOOD SPECIMENOrdering Facility: [facility] Address: [address] [place] [address] Performed By: #### 5 8410-2 ####[facility] LABORATORYCLIA [id number] [place] [address] [place] [facility] RBC (Bld) [#/Vol] 4.51 10*6/uL Normal 4.20-6.00 [facility] Comment on above: Order Comment: Speci men Type: BLOOD SPECIMENOrdering Facility: [facility] Address: [address] [place] [address] Performed By: #### 5 8410-2 ####[facility] LABORATORYCLIA [id number] [place] [address] [facility] WBC (Bld) [#/Vol] 6.27 10*3/uL Normal 3.70-11.00 [facility] Comment on above: Order Comment: Speci men Type: BLOOD SPECIMENOrdering Facility: [facility] Address: [address] [place] [address] Performed By: #### [id number] ####[facility] LABORATORYCLIA [id number] [place] [address] [facility] HISTORY PHYSICALon HISTORY PHYSICAL HNO ID: [id number] Author: PAT MONREAL MD Service: Electrophysiology Author Type: Physician Type: H&P Filed: 05/30/2024 09:22 Note Text: UPDATED HISTORY AND PHYSICAL EXAMINATION SERVICE DATE: 05/30/2024 SERVICE TIME: 920 PHYSICAL EXAM MUST BE COMPLETED ON ADMISSION The History and Physical (completed in the past 30 days) has been reviewed and the patient has been examined. The contents accurately reflect the patient's condition with the following additions or revisions since the HANDP was completed. Examination indicates no changes. This HANDP can be found in the Electronic Medical Record dated 05/11/24. SIGNATURE: Pat Monreal MD PATIENT NAME: Vincent Madden DATE: May 30, 2024 TIME: 9:22 AM Normal [facility] OPERATIVE NOon 05-30-2024 OPERATIVE NO HNO ID: [id number] Author: PAT MONREAL MD Service: Electrophysiology Author Type: Physician Type: Operative Report Filed: 05/30/2024 11:16 Note Text: [facility] After obtaining informed consent, patient brought to the lab in postprandial state. Procedure performed under conscious sedation. Patient draped and prepped in usual standard sterile fashion. Local anesthetic administered and an incision made over the device pocket. Using a combination of cautery and blunt dissection, the device freed from the capsule and taken out of the pocket. Part of the anterior capsule was removed and inferiorly the pocket was opened. Hemostasis obtained. The device was disconnected from the leads. Leads inspected visually for insulation and no visible damage identified. The leads were connected to the header of the new device into the appropriate ports, lead tip verified to pass beyond the screw, ratcheted in place and tug tested.Leads tested and verified pacing sensing impedance values. Device placed in antibiotic pouch and inserted into pocket. Pocket closed in layers. Aquasol Sterile dressing applied. Patient tolerated procedure well. No complications. Various vectors were tried and LV only had 22ms latency with QRSd 130ms excluding latency Adaptive ROAD GRADER OPERATOR programmed on Original 2 to coil was optimal for QRSd at 1 year lower projected life and this original vector was left on. Estimated blood loss 15 - 20 ml [facility] 05-12-2024 [facility] Telephone (AGCARDPOB ) VINCENT MADDEN ([id number]) 1960 M Date Time Provider Department 05/12/24 PAT MONREAL During your visit today, we recorded the following information about you: Darron Busch 05/12/2024 2:27 PM Signed Patient is scheduled for a gen change on 05/[address] Monreal. The hospital will call the day before between 2-5pm with your arrival time. You should not eat or drink after midnight the day before the procedure. 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 You should continue to take medications as prescribed the morning of the procedure with just a sip of water but stop furosemide the day of the procedure. Spoke with Himanshu Madden (EC/Daughter) on May 12, 2024. Informed of instructions as stated above. Patients daughter verbalized understanding. Flori Mackay RN 05/12/2024 2:37 PM Signed Pt's name has been added to nguyen procedure board. Flori Dhillon RN Allergies As of Date: 05/12/2024 Noted Allergy Reaction BUPRENORPHINE 10/04/2020 14 - Other: See Comments Date Reviewed: 05/11/2024 Reviewed by: Oriana Mata MA - Fully Assessed Reason for Visit: Preparations For Procedures [899] Prescriptions as of 05/12/2024 - carvedilol (COREG) 12.5 mg tablet Take 1 tablet by mouth twice daily - Tadalafil (CIALIS) 5 mg tablet Take 1 tablet by mouth once daily. Take 1 tablet by mouth daily - esomeprazole (NEXIUM) 40 mg capsule Take 1 capsule by mouth once daily. - furosemide (LASIX) 40 mg tablet Take 1 tablet by mouth once daily. - lisinopril (ZESTRIL) 20 mg tablet Take 1 tablet by mouth two times a day. - spironolactone (ALDACTONE) 25 mg tablet Take 1 tablet by mouth once daily. - atorvastatin (LIPITOR) 20 mg tablet Take 1 tablet by mouth once daily. - diclofenac (VOLTAREN) 1 % topical gel Apply 2 g to affected area four times daily. - meclizine (ANTIVERT) 25 mg tab Take 1 tablet by mouth three times daily as needed. - topiramate (TOPAMAX) 100 mg tablet Take 1 tablet by mouth daily at bedtime. - gabapentin (NEURONTIN) 600 mg tablet Take 600 mg by mouth three times a day. - aspirin, enteric coated (ADULT LOW DOSE ASPIRIN) 81 mg EC tablet Take 1 tablet by mouth once daily. Problem List As Of Date 05/12/2024 Noted Resolved Systolic congestive heart failure, NYHA class 1*12/05/2012 Obesity [E66.9] 12/05/2012 08/09/2021 ICD (implantable cardioverter-defibril lator) in*06/04/2016 Dilated cardiomyopathy (HCC) [I42.0] 12/02/2012 Palpitations [R00.2] Coronary arteriosclerosis [I25.10] LBBB (left bundle branch block) [I44.7] Hypertriglyceridemia [E78.1] 02/11/2017 History of colonic polyps [Z86.010] 08/30/2017 08/09/2021 Hiatal hernia with GERD [K44.9, K21.9] 02/10/2018 Carpal tunnel syndrome of left wrist [G56.02] 09/28/2018 Tendinitis of right rotator cuff [M75.81] 09/02/2020 08/09/2021 Lumbosacral radiculopathy [M54.17] 08/09/2021 Sciatica [M54.30] 08/09/2021 Displacement of lumbar intervertebral disc with*08/09/2021 Athscl heart disease of [place] coronary artery *02/26/2016 Chronic systolic CHF (congestive heart failure)*11/19/2022 Preop examination [Z01.818] 11/19/2023 Gastroesophageal reflux disease [K21.9] 11/19/2023 Rectal bleeding [K62.5] 11/19/2023 HTN (hypertension) [I10] 11/19/2023 Encounter Status:Closed by DARRON BUSCH on 05/12/24 [facility] [place] 05-11-2024 CNAKELA Office Visit (ELOY ) VINCENT MADDEN ([id number]) 1960 Fabio Date Time Provider Department 05/11/24 11:20 AM PAT MONREAL During your visit today, we recorded the following information about you: Pulse Respiration Blood pressure Weight 72/minute minute 132/84 85.3 kg Height 1.727 m Oriana Mata MA 05/11/2024 11:05 AM Signed Patient denies any cardiac issues or symptoms. Pat Monreal MD 05/11/2024 11:35 AM Signed [facility] SECTION OF CARDIAC PACING and ELECTROPHYSIOLOGY OUTPATIENT VISIT DATE May 11, 2024 OUTPATIENT VISIT TYPE NEW PRIMARY CARE PHYSICIAN: To use this Smartlink, specify the provider ID whose address you want to display, e.g., .PROVADDR[1 (where 1 is the provider ID). REFERRING PHYSICIAN: No referring provider defined for this encounter. CARD New Patient Consult (Bacteriology Research Assistant ref for gen change) HISTORY OF PRESENT ILLNESS: Vincent Madden is a 64 year old year old MALE and is referred for management of .ICD as it reached Replacement time 04/22/24 HE has a h/o Htn, LBBB, NICM 2012, Dilated CMP s/p MDT BIV ICD for Primary Prevention 02/26/2016 with a 5072 in RA, 4298 in CS posterolateral branch and 6947 in RV. No history of ICD shocks Cath 2010 non obst CAD TTE 06/12/21 LA vol 58 ANA MARIA 28 EF 45% NM SPECT 06/17/21 nl perfusion, no scar, nl LV RV size, nl LVSF, EF 56% The device check 04/30/24 showed BiV pacing 100% and activity 7 h/d He says he is doing well from a cardiac perspective no chest pain palpitations dizziness swelling in the feet loss of consciousness fall. Takes his medicines regularly. No history of myocardial infarction stroke TIA diabetes liver disease kidney disease cancer blood clots bleeding problems, thyroid disease With buprenorphine which he received at the time of back surgery he says it made him sick Social History - Lives at home with . Quit smoking over 30 years ago. NO ETOH.Is active at home and does yard work Family history father had heart disease was in his 80s when he . Mother had cancer and heart disease at 86 ICD check 04/30/24 - ICD remote interrogation. Presenting EGM p-synch RV paced @ 87 ppm. No VT/VF events and no mode switch episodes since last check. Sensing and impedance values stable. EGMs w/o noise. Device has reached Recommended replacement time as of 04/22/24, report sent for review and scheduling. PAST MEDICAL HISTORY Diagnosis Date Abnormal EKG Atherosclerotic heart disease of [place] coronary artery without angina pectoris Automatic implantable cardioverter-defibril lator in situ BBB (bundle branch block) Benign neoplasm of colon Cardiomegaly Cardiomyopathy (HCC) NIDCM CHF (congestive heart failure) systolic 12/02/2012 Chronic pain of left thumb Coronary arteriosclerosis Dilated cardiomyopathy (HCC) 12/02/2012 Latest Echo 05/2016 with EF 40% can be found in Care Everywhere Dyspnea Epigastric pain Fatigue GERD (gastroesophageal reflux disease) Hiatal hernia History of colonic polyps 08/30/2017 Added automatically from request for surgery [id number] HTN (hypertension) 11/19/2023 LBBB (left bundle branch block) Left ventricular failure (HCC) Obesity 12/05/2012 Palpitations SOB (shortness of breath) pt stated before pacemaker and defib placed Tendinitis of right rotator cuff 09/02/2020 PAST SURGICAL HISTORY Procedure Laterality Date CARDIAC CATH Left 06/2011 COLONOSCOPY SCREENING N/A 12/09/2023 COLONOSCOPY W/BIOPSY SINGLE/MULTIPLE 12/24/2017 EGD TRANSORAL BIOPSY SINGLE/MULTIPLE 12/24/2017 EGD W/O BRSH SPEC VARICIES INJ N/A 12/09/2023 LOW BACK DISK SURGERY PACEMAKER 02/26/2016 Medtronic pacemaker and defib PAST SURGICAL HISTORY OF pin removed from the left thumb Family History Problem Relation Age of Onset Coronary Artery Disease Mother a. CABG, carotid artery endarterectomy bilateral Breast Cancer Mother Heart Mother Coronary Artery Disease Father a. CABG, valve replacement Heart Father None Brother 3 brothers and one sister a.OK Cancer Brother one brother a. 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 Take 1 tablet by mouth daily esomeprazole (NEXIUM) 40 mg capsule Take 1 capsule by mouth once daily. furosemide (LASIX) 40 mg tablet Take 1 tablet by mouth once daily. lisinopril (ZESTRIL) 20 mg tablet Take 1 tablet by mouth two times a day. spironolactone (ALDACTONE) 25 mg tablet Take 1 tablet by mouth once daily. atorvastatin (LIPITOR) 20 mg tablet Take 1 tablet by mouth once daily. diclofenac (VOLTAREN) (more content not included)... Normal [facility] ICD REMOTE CHECKon 4 AV Delay Adaptive Paced Minimum (ms) 160 ms [facility] AV Delay Adaptive Sensed Minimum (ms) 140 ms [facility] AV Delay Adaptive Status ENABLED [facility] Battery Voltage 2.72 V [facility] Cameron LV Pacing Amplitude (volts) 2.25 V [facility] Cameron LV Pacing Polarity BI [facility] Cameron LV Pacing Pulse Width (ms) 0.6 ms [facility] Cameron RA Pacing Amplitude (volts) 1.5 V [facility] Cameron RA Pacing Polarity BI [facility] Cameron RA Pacing Pulse Width (ms) 0.4 ms [facility] Cameron RA Sensing Amplitude (mvolts) 0.45 mV [facility] Cameron RA Sensing Blanking Period (ms) 150 ms [facility] Cameron RA Sensing Polarity BI [facility] Cameron RA Sensing Refractory Period (ms) Auto [facility] Cameron RV Pacing Amplitude (volts) 2 V [facility] Cameron RV Pacing Polarity BI [facility] Cameron RV Pacing Pulse Width (ms) 0.4 ms [facility] Cameron RV Sensing Amplitude (mvolts) 0.3 mV [facility] Cameron RV Sensing Blanking Period (ms) 200 ms [facility] Cameron RV Sensing Polarity BI [facility] Detection Configuration (Vent) 1 - Zone [facility] FastVT_Detection Interval Blank [facility] ICD ATAF DetectionInterval ms 350 ms [facility] ICD ATAF DetectionStatus ENABLED [facility] ICD FastVT DetectionStatus DISABLED [facility] ICD-ADLRATE_BPM 95 {beats}/min [facility] ICD-AMS EPISODES 171 {beats}/min [facility] ICD-ATP Episodes (Vent) [address] [facility] ICD-ATRIALFIBRILLATION 0 Cl [facility] ICD-Counters Cleared Date 02/26/2016 [facility] ICD-Device Mfg MDT [facility] ICD-LEADIMPEDANCEATRIAL [address] [facility] ICD-Percent Pacing (Atrial) 0.49 % [facility] ICD-Percent Pacing (Vent) 4.84 % [facility] ICD-PMT Intervention ENABLED [facility] ICD-PVC Intervention ENABLED [facility] ICD-Rate Modulation Acceleration Reaction 30 s [facility] ICD-Rate Modulation Deceleration Exercise [facility] ICD-Rate Modulation [facility] 3 [facility] ICD-Rate Modulation Threshold MediumLow [facility] ICD-Shocks Aborted (Vent) 0 [facility] DUS-AOBQFE-FHEBPAKHC 0 [facility] ICD-SHOCKSABORTED 0 [facility] ICD-SHOCKSDELIVEREDVENTR ICULAR 0 [facility] ICD-Ventricular Fibrillation 0 [facility] Lead Impedance (LV) 722 ohm [facility] Lead Impedance (RV) 437 ohm [facility] Lead Impedance High Voltage 47 ohm [facility] Lead1 Mfg Medtronic [facility] Lead2 [facility] Lead3 Mfg Medtronic [facility] Location LV [facility] Location RA [facility] Location RV [facility] Lower Rate (bpm) 50 {beats}/min [facility] LV PACING % 93.8 % [facility] Max Sensor Rate (bpm) 140 {beats}/min [facility] MDT_PROG_TACHY_ZONE_DETE CTIONS_STATUS ENABLED [facility] Model [id number] Amplia MRI Quad ROAD GRADER OPERATOR-D [facility] Model 4298/88 LV Lead [facility] Model 5076-52 Capsurefix Novus [facility] Model 8591E22 [facility] Pacing Mode DDD [facility] Serial Number [id number] [facility] Serial Number [id number] [facility] Serial Number [id number] [facility] Serial Number [id number] [facility] Test Charge Energy 18 [facility] Test Charge Time 5.485 [facility] Therapy Status (Vent) Enabled [facility] Thresh LV Capture Amplitude (volts) 1.625 V [facility] Thresh LV Capture Duration (ms) 0.6 ms [facility] Thresh RA Capture Amplitude (volts) 0.5 V [facility] Thresh RA Capture Duration (ms) 0.4 ms [facility] Thresh RA Sensing Amplitude (mvolts) 2.375 mV [facility] Thresh RV Capture Amplitude (VOLTS) 0.75 V [facility] Thresh RV Capture Duration (MS) 0.4 ms [facility] Thresh RV Sensing Amplitude (MVOLTS) 11.5 mV [facility] Tracking Rate (bpm) 140 {beats}/min [facility] VF Zone Detection Interval 320 ms [facility] VF Zone Therapy Configuration 1 ATP(s) + 6 Shock(s) [facility] ICD remote interrogation. Presenting EGM p-synch RV paced @ 87 ppm. No VT/VF events and no mode switch episodes since last check. Sensing and impedance values stable. EGMs w/o noise. Device has reached Recommended replacement time as of 04/22/24, report sent for review and scheduling. [facility] CVT NOTE TO PROVIDERS: CARD Flowsheets contain detailed device programming and testing data. Paceart/Interrogation PDF can be found under CARDIAC DATA AND REPORT, Scanned Documents section. PACEART 05/01/2024 Formattin g of this note might be different from the original. ICD remote interrogation. Presenting EGM p-synch RV paced @ 87 ppm. No VT/VF events and no mode switch episodes since last check. Sensing and impedance values stable. EGMs w/o noise. Device has reached Recommended replacement time as of 04/22/24, report sent for review and scheduling. [facility] CVT NOTE TO PROVIDERS: CARD Flowsheets contain detailed device programming and testing data. Paceart/Interrogation PDF can be found under CARDIAC DATA AND REPORT, Scanned Documents section. [facility] No Panel Informationon 05-01 BLANK _ [facility] ICD-ATRIALTACHYCARDIA 0 [facility] ICD-Fast Ventricular Tachycardia 0 [facility] Implant Date 02/26/2016 [facility] CNOVon 01-07-2024 CNOV Office Visit (UROLSF ) VINCENT MADDEN ([id number]) 1960 M Date Time Provider Department 01/07/24 3:30 PM JIM SHERMAN During your visit today, we recorded the following information about you: Temperature Pulse Blood pressure Weight 97.2 degrees 73/minute 114/82 87.9 kg Height 1.727 m Jim Sherman APRN.TECHNICAL SERVICES REPRESENTATIVE, DNP 01/07/2024 4:33 PM Signed [facility] MALE PATIENT - HISTORY AND PHYSICAL EXAMINATION PATIENT: Vincent Madden (63 year old) PCP: Niki Carr MD CHIEF COMPLAINT: enlarged prostate follow up HISTORY OF PRESENT ILLNESS: 63 year old year old male with BPH/LUTS. Here for follow up appointment. Hx sig for: HTN, GERD, HLD, LBBB, Constipation Dilated Cardiomyopathy Recent colonoscopy with GI and noted his prostate was enlarged. Referred to see Urology for eval. CT of ABD completed in January 2020 - no mention of enlarged prostate. Recent PSA = 2.14 - this is his only PSA on record we have. BPH: NTF x2. That is the most bothersome symptom. Started on Cialis 5mg at last appt, but he never picked up his Rx from the pharmacy. No change in symptoms since last appt. No fhx of Prostate, bladder or kidney cancer URINARY: DAYTIME FREQUENCY: Every 2 hours NIGHTTIME FREQUENCY: 2 IRRITATIVE - BOTHERSOME FREQUENCY: Yes - URGENCY: Yes - INCONTINENCE: Stress No / Urge No OBSTRUCTIVE - FORCE OF STREAM: Average - HESITANCY: No - INTERMITTENCY: No - STRAINING: No - INCOMPLETE EMPTYING: No - DOUBLE VOIDING: No - POSTVOID DRIBBLING: No CURRENT URINARY STATUS: - INDWELLING CATHETER: No - CURRENT INTERMITTENT CATHETERIZATION: No - GROSS HEMATURIA: No - URINARY TRACT INFECTION: No Patient Entered Questionnaires: INTERNATIONAL PROSTATE SYMPTOM SCORE (I-PSS) PREVIOUS TOTAL IPSS SCORE: 21 QOL = 3 1. Incomplete emptying 3 2. Frequency 3 3. Intermittency 3 4. Urgency 1 5. Weak stream 3 6. Straining 1 7. Nocturia 3 TOTAL IPSS SCORE 17 QOL = 3 HISTORY: PAST MEDICAL HISTORY Diagnosis Date Abnormal EKG Atherosclerotic heart disease of [place] coronary artery without angina pectoris Automatic implantable cardioverter-defibril lator in situ BBB (bundle branch block) Benign neoplasm of colon Cardiomegaly Cardiomyopathy (HCC) NIDCM CHF (congestive heart failure) systolic 12/02/2012 Chronic pain of left thumb Coronary arteriosclerosis Dilated cardiomyopathy (HCC) 12/02/2012 Latest Echo 05/2016 with EF 40% can be found in Care Everywhere Dyspnea Epigastric pain Fatigue GERD (gastroesophageal reflux disease) Hiatal hernia History of colonic polyps 08/30/2017 Added automatically from request for surgery [id number] HTN (hypertension) 11/19/2023 LBBB (left bundle branch block) Left ventricular failure (HCC) Obesity 12/05/2012 Palpitations SOB (shortness of breath) pt stated before pacemaker and defib placed Tendinitis of right rotator cuff 09/02/2020 PAST SURGICAL HISTORY Procedure Laterality Date CARDIAC CATH Left 06/2011 COLONOSCOPY SCREENING N/A 12/09/2023 COLONOSCOPY W/BIOPSY SINGLE/MULTIPLE 12/24/2017 EGD TRANSORAL BIOPSY SINGLE/MULTIPLE 12/24/2017 EGD W/O BRSH SPEC VARICIES INJ N/A 12/09/2023 LOW BACK DISK SURGERY PACEMAKER 02/26/2016 Medtronic pacemaker and defib PAST SURGICAL HISTORY OF pin removed from the left thumb Social History Tobacco Use Smoking status: Former Packs/day: 1.00 Years: 10.00 Additional pack years: 0.00 Total pack years: 10.00 Types: Cigarettes Quit date: 12/05/2006 Years since quittin.1 Smokeless tobacco: Never Vaping Use Vaping Use: Never used Substance Use Topics Alcohol use: No Comment: heavy alcohol consumption and quit in 1987 Drug use: No FAMILY HISTORY Problem Relation Age of Onset Coronary Artery Disease Mother a. CABG, carotid artery endarterectomy bilateral Breast Cancer Mother Heart Mother Coronary Artery Disease Father a. CABG, valve replacement Heart Father None Brother 3 brothers and one sister a.OK Cancer Brother one brother a. Colon Cancer Brother other (scd) Other uncle and aunt scd other (Heart Attack) Other Heart Paternal Uncle x2 Heart Paternal Aunt MEDICATIONS: Current Outpatient Medications Medication Sig Tadalafil (CIALIS) 5 mg tablet Take 1 tablet by mouth once daily. Take 1 tablet by mouth daily esomeprazole (NEXIUM) 40 mg capsule Take 1 capsule by mouth once daily. carvedilol (COREG) 12.5 mg tablet Take 1 tablet by mouth two times a day. furosemide (LASIX) 40 mg tablet Take 1 tablet by mouth once daily. lisinopril (ZESTRIL) 20 mg tablet Take 1 tablet by mouth two times a day. spironolactone (ALDACTONE) 25 mg tablet Take 1 tablet by mouth once daily. atorvastatin (LIPITOR) 20 mg tablet Take 1 tablet by mouth once daily. diclofenac (VOLTAREN) 1 % topical gel Apply 2 g to affected area fo (more content not included)... Normal [facility] REMOTE CHECKon 4 AV Delay Adaptive Paced Minimum (ms) 170 ms [facility] AV Delay Adaptive Sensed Minimum (ms) 140 ms [facility] AV Delay Adaptive Status ENABLED [facility] Battery Voltage 2.80 V [facility] Cameron LV Pacing Amplitude (volts) 2.5 V [facility] Cameron LV Pacing Polarity BI [facility] Cameron LV Pacing Pulse Width (ms) 0.6 ms [facility] Cameron RA Pacing Amplitude (volts) 1.5 V [facility] Cameron RA Pacing Polarity BI [facility] Cameron RA Pacing Pulse Width (ms) 0.4 ms [facility] Cameron RA Sensing Amplitude (mvolts) 0.45 mV [facility] Cameron RA Sensing Blanking Period (ms) 150 ms [facility] Cameron RA Sensing Polarity BI [facility] Cameron RA Sensing Refractory Period (ms) Auto [facility] Cameron RV Pacing Amplitude (volts) 2 V [facility] Cameron RV Pacing Polarity BI [facility] Cameron RV Pacing Pulse Width (ms) 0.4 ms [facility] Cameron RV Sensing Amplitude (mvolts) 0.3 mV [facility] Cameron RV Sensing Blanking Period (ms) 200 ms [facility] Cameron RV Sensing Polarity BI [facility] Detection Configuration (Vent) 1 - Zone [facility] FastVT_Detection Interval Blank [facility] ICD ATAF DetectionInterval ms 350 ms [facility] ICD ATAF DetectionStatus ENABLED [facility] ICD FastVT DetectionStatus DISABLED [facility] ICD-ADLRATE_BPM 95 {beats}/min [facility] ICD-AMS EPISODES 171 {beats}/min [facility] ICD-ATP Episodes (Vent) [address] [facility] ICD-ATRIALFIBRILLATION 0 Cl [facility] ICD-Counters Cleared Date 02/26/2016 [facility] ICD-Device Mfg MDT [facility] ICD-LEADIMPEDANCEATRIAL [address] [facility] ICD-Percent Pacing (Atrial) 0.21 % [facility] ICD-Percent Pacing (Vent) 4.13 % [facility] ICD-PMT Intervention ENABLED [facility] ICD-PVC Intervention ENABLED [facility] ICD-Rate Modulation Acceleration Reaction 30 s [facility] ICD-Rate Modulation Deceleration Exercise [facility] ICD-Rate Modulation [facility] 3 [facility] ICD-Rate Modulation Threshold MediumLow [facility] ICD-Shocks Aborted (Vent) 0 [facility] [id number] 0 [facility] ICD-SHOCKSABORTED 0 [facility] ICD-SHOCKSDELIVEREDVENTR ICULAR 0 [facility] ICD-Ventricular Fibrillation 0 [facility] Lead Impedance (LV) 665 ohm [facility] Lead Impedance (RV) 399 ohm [facility] Lead Impedance High Voltage 45 ohm [facility] Lead1 Mfg Medtronic [facility] Lead2 [facility] Lead3 Mfg Medtronic [facility] Location LV [facility] Location RA [facility] Location RV [facility] Lower Rate (bpm) 50 {beats}/min [facility] LV PACING % 95.78 % [facility] Max Sensor Rate (bpm) 140 {beats}/min [facility] MDT_PROG_TACHY_ZONE_DETE CTIONS_STATUS ENABLED [facility] Model [id number] Amplia MRI Quad ROAD GRADER OPERATOR-D [facility] Model 4298/88 LV Lead F[facility] Model 5076-52 Capsurefix Novus [facility] Model 5868V43 [facility] Pacing Mode DDD [facility] Serial Number [id number] [facility] Serial Number [id number] [facility] Serial Number [id number] [facility] Serial Number [id number] [facility] Test Charge Energy 18 [facility] Test Charge Time 4.854 [facility] Therapy Status (Vent) Enabled [facility] Thresh LV Capture Amplitude (volts) 1.375 V [facility] Thresh LV Capture Duration (ms) 0.6 ms [facility] Thresh RA Capture Amplitude (volts) 0.5 V [facility] Thresh RA Capture Duration (ms) 0.4 ms [facility] Thresh RA Sensing Amplitude (mvolts) 2.25 mV [facility] Thresh RV Capture Amplitude (VOLTS) 0.625 V [facility] Thresh RV Capture Duration (MS) 0.4 ms [facility] Thresh RV Sensing Amplitude (MVOLTS) 9.375 mV [facility] Tracking Rate (bpm) 140 {beats}/min [facility] VF Zone Detection Interval 320 ms [facility] VF Zone Therapy Configuration 1 ATP(s) + 6 Shock(s) [facility] No Panel Informationon 01-06 BLANK _ [facility] ICD-ATRIALTACHYCARDIA 0 [facility] ICD-Fast Ventricular Tachycardia 0 [facility] Implant Date 02/26/2016 [facility] UA DIP, URINE (POC)on 2023 BILIRUBIN UA (POCT) Negative Negative [facility] CLARITY UA (POCT) Clear [facility] COLOR UA (POCT) Yellow [facility] GLUCOSE UA (POCT) Negative Negative mg/dL [facility] Hemoglobin Ql (U) Negative Negative [facility] KETONE UA (POCT) Negative Negative mg/dL [facility] LEUKOCYTES UA (POCT) Negative Negative [facility] NITRITE UA (POCT) Negative Negative [facility] PH UA (POCT) 7.0 4.5 - 8.0 [facility] Protein Ql (U) Negative Negative mg/dL [facility] SPECIFIC GRAVITY UA (POCT) 1.020 1.005 - 1.030 [facility] UROBILINOGEN UA (POCT) 1.0 E.U./dL Nickie l E.U./dL [facility] Urinalysis complete panel (U )on 11-27-2023 Bacteria LM.HPF (Urine sed) [#/Area] Negative Negative /HPF [facility] Bilirubin Ql (U) Negative Negative [facility] Clarity (Unsp spec) Clear Clear [facility] Color (U) Yellow Yellow [facility] Epithelial cells LM.HPF (Urine sed) [#/Area] None Seen [facility] Glucose Test strip (U) [Mass/Vol] Negative Negative [facility] Hemoglobin Ql (U) Negative Negative [facility] Hyaline casts (Urine sed) [#/Area] 1-3 /LPF Abnormal 0 /LPF [facility] Ketones Ql (U) Negative Negative [facility] Leukocyte esterase Test strip Ql (U) Negative Negative [facility] Nitrite Ql (U) Negative Negative [facility] pH (U) 7.0 [pH] <8.5 [facility] Protein (U) [Mass/Vol] Negative Negative Cl [facility] RBC LM.HPF (Urine sed) [#/Area] 0-2 /HPF 0-2 /HPF [facility] Specific gravity (U) [Rel density] 1.014 1.005 - 1.030 [facility] Urobilinogen Ql (U) 0.2 EU/dL 0.2-1.0 EU/dL Cl [facility] WBC LM.HPF (Urine sed) [#/Area] 0-5 /HPF 0-5 /HPF [facility] UA DIP, URINE (POC)on 2023 BILIRUBIN UA (POCT) Negative Negative [facility] CLARITY UA (POCT) Slightly Cloudy Cl [facility] COLOR UA (POCT) Yellow [facility] GLUCOSE UA (POCT) Negative Negative mg/dL [facility] Hemoglobin Ql (U) Negative Negative [facility] KETONE UA (POCT) Negative Negative mg/dL [facility] LEUKOCYTES UA (POCT) Negative Negative [facility] NITRITE UA (POCT) Negative Negative [facility] PH UA (POCT) 7.0 4.5 - 8.0 [facility] Protein Ql (U) Negative Negative mg/dL [facility] SPECIFIC GRAVITY UA (POCT) 1.020 1.005 - 1.030 [facility] UROBILINOGEN UA (POCT) 0.2 E.U./dL Nickie l E.U./dL [facility] ICD REMOTE CHECKon 3 AV Delay Adaptive Paced Minimum (ms) 150 ms [facility] AV Delay Adaptive Sensed Minimum (ms) 140 ms [facility] AV Delay Adaptive Status ENABLED [facility] Battery Voltage 2.83 V [facility] Cameron LV Pacing Amplitude (volts) 1.75 V [facility] Cameron LV Pacing Polarity BI [facility] Cameron LV Pacing Pulse Width (ms) 0.6 ms [facility] Cameron RA Pacing Amplitude (volts) 1.5 V [facility] Cameron RA Pacing Polarity BI [facility] Cameron RA Pacing Pulse Width (ms) 0.4 ms [facility] Cameron RA Sensing Amplitude (mvolts) 0.45 mV [facility] Cameron RA Sensing Blanking Period (ms) 150 ms [facility] Cameron RA Sensing Polarity BI [facility] Cameron RA Sensing Refractory Period (ms) Auto [facility] Cameron RV Pacing Amplitude (volts) 2 V [facility] Cameron RV Pacing Polarity BI [facility] Cameron RV Pacing Pulse Width (ms) 0.4 ms [facility] Cameron RV Sensing Amplitude (mvolts) 0.3 mV [facility] Cameron RV Sensing Blanking Period (ms) 200 ms [facility] Cameron RV Sensing Polarity BI [facility] Detection Configuration (Vent) 1 - Zone [facility] FastVT_Detection Interval Blank [facility] ICD ATAF DetectionInterval ms 350 ms [facility] ICD ATAF DetectionStatus ENABLED [facility] ICD FastVT DetectionStatus DISABLED [facility] ICD-ADLRATE_BPM 95 {beats}/min [facility] ICD-AMS EPISODES 171 {beats}/min [facility] ICD-ATP Episodes (Vent) [address] [facility] ICD-ATRIALFIBRILLATION 0 Cl [facility] ICD-Counters Cleared Date 02/26/2016 [facility] ICD-Device Mfg MDT [facility] ICD-LEADIMPEDANCEATRIAL [address] [facility] ICD-Percent Pacing (Atrial) 0.64 % [facility] ICD-Percent Pacing (Vent) 4.81 % [facility] ICD-PMT Intervention ENABLED [facility] ICD-PVC Intervention ENABLED [facility] ICD-Rate Modulation Acceleration Reaction 30 s [facility] ICD-Rate Modulation Deceleration Exercise [facility] ICD-Rate Modulation [facility] 3 [facility] ICD-Rate Modulation Threshold MediumLow [facility] ICD-Shocks Aborted (Vent) 0 [facility] [id number] 0 [facility] ICD-SHOCKSABORTED 0 [facility] ICD-SHOCKSDELIVEREDVENTR ICULAR 0 [facility] ICD-Ventricular Fibrillation 0 [facility] Lead Impedance (LV) 722 ohm [facility] Lead Impedance (RV) 399 ohm [facility] Lead Impedance High Voltage 44 ohm [facility] Lead1 [facility] Lead2 [facility]fg [facility] Lead3 Mfg [facility] Location LV [facility] Location RA [facility] Location RV [facility] Lower Rate (bpm) 50 {beats}/min [facility] LV PACING % 95.38 % [facility] Max Sensor Rate (bpm) 140 {beats}/min [facility] MDT_PROG_TACHY_ZONE_DETE CTIONS_STATUS ENABLED [facility] Model [id number] Amplia MRI Quad ROAD GRADER OPERATOR-D [facility] Model 4298/88 LV Lead F[facility] Model 5076-52 Capsurefix Novus [facility] Model 8889I03 [facility] Pacing Mode DDD [facility] Serial Number [id number] [facility] Serial Number [id number] [facility] Serial Number [id number] [facility] Serial Number [id number] [facility] Test Charge Energy 18 J [facility] Test Charge Time 4.584 [facility] Therapy Status (Vent) Enabled [facility] Thresh LV Capture Amplitude (volts) 1.25 V [facility] Thresh LV Capture Duration (ms) 0.6 ms [facility] Thresh RA Capture Amplitude (volts) 0.5 V [facility] Thresh RA Capture Duration (ms) 0.4 ms [facility] Thresh RA Sensing Amplitude (mvolts) 2.125 mV [facility] Thresh RV Capture Amplitude (VOLTS) 0.75 V [facility] Thresh RV Capture Duration (MS) 0.4 ms [facility] Thresh RV Sensing Amplitude (MVOLTS) 10 mV [facility] Tracking Rate (bpm) 140 {beats}/min [facility] VF Zone Detection Interval 320 ms [facility] VF Zone Therapy Configuration 1 ATP(s) + 6 Shock(s) [facility] No Panel Informationon 09-29 BLANK _ [facility] ICD-ATRIALTACHYCARDIA 0 [facility] ICD-Fast Ventricular Tachycardia 0 [facility] Implant Date 02/26/2016 [facility] ICD REMOTE CHECKon 3 AV Delay Adaptive Paced Minimum (ms) 160 ms [facility] AV Delay Adaptive Sensed Minimum (ms) 140 ms [facility] AV Delay Adaptive Status ENABLED [facility] Battery Voltage 2.89 V [facility] Cameron LV Pacing Amplitude (volts) 2 V [facility] Cameron LV Pacing Polarity BI [facility] Cameron LV Pacing Pulse Width (ms) 0.6 ms [facility] Cameron RA Pacing Amplitude (volts) 1.5 V [facility] Cameron RA Pacing Polarity BI [facility] Cameron RA Pacing Pulse Width (ms) 0.4 ms [facility] Cameron RA Sensing Amplitude (mvolts) 0.45 mV [facility] Cameron RA Sensing Blanking Period (ms) 150 ms [facility] Cameron RA Sensing Polarity BI [facility] Cameron RA Sensing Refractory Period (ms) Auto [facility] Cameron RV Pacing Amplitude (volts) 2 V [facility] Cameron RV Pacing Polarity BI [facility] Cameron RV Pacing Pulse Width (ms) 0.4 ms [facility] Cameron RV Sensing Amplitude (mvolts) 0.3 mV [facility] Cameron RV Sensing Blanking Period (ms) 200 ms [facility] Cameron RV Sensing Polarity BI [facility] Detection Configuration (Vent) 1 - Zone [facility] FastVT_Detection Interval Blank [facility] ICD ATAF DetectionInterval ms 350 ms [facility] ICD ATAF DetectionStatus ENABLED [facility] ICD FastVT DetectionStatus DISABLED [facility] ICD-ADLRATE_BPM 95 {beats}/min [facility] ICD-AMS EPISODES 171 {beats}/min [facility] ICD-ATP Episodes (Vent) [address] [facility] ICD-ATRIALFIBRILLATION 0 Cl [facility] ICD-Counters Cleared Date 02/26/2016 [facility] ICD-Device Mfg MDT [facility] ICD-LEADIMPEDANCEATRIAL [address] [facility] ICD-Percent Pacing (Atrial) 0.13 % [facility] ICD-Percent Pacing (Vent) 6.07 % [facility] ICD-PMT Intervention ENABLED [facility] ICD-PVC Intervention ENABLED [facility] ICD-Rate Modulation Acceleration Reaction 30 s [facility] ICD-Rate Modulation Deceleration Exercise [facility] ICD-Rate Modulation [facility] 3 [facility] ICD-Rate Modulation Threshold MediumLow [facility] ICD-Shocks Aborted (Vent) 0 [facility] [id number] 0 [facility] ICD-SHOCKSABORTED 0 [facility] ICD-SHOCKSDELIVEREDVENTR ICULAR 0 [facility] ICD-Ventricular Fibrillation 0 [facility] Lead Impedance (LV) 646 ohm [facility] Lead Impedance (RV) 380 ohm [facility] Lead Impedance High Voltage 44 ohm [facility] Lead1 [facility] Lead2 Mfg [facility] Lead3 Mfg [facility] Location LV [facility] Location RA [facility] Location RV [facility] Lower Rate (bpm) 50 {beats}/min [facility] LV PACING % 95.86 % [facility] Max Sensor Rate (bpm) 140 {beats}/min [facility] MDT_PROG_TACHY_ZONE_DETE CTIONS_STATUS ENABLED [facility] Model [id number] Amplia MRI Quad ROAD GRADER OPERATOR-D [facility] Model 4298/88 LV Lead [facility] Model 5076-52 Capsurefix Novus [facility] Model 6605Y13 [facility] Pacing Mode DDD [facility] Serial Number [id number] [facility] Serial Number [id number] [facility] Serial Number [id number] [facility] Serial Number [id number] [facility] Test Charge Energy 18 [facility] Test Charge Time 4.294 [facility] Therapy Status (Vent) Enabled [facility] Thresh LV Capture Amplitude (volts) 1.5 V [facility] Thresh LV Capture Duration (ms) 0.6 ms [facility] Thresh RA Capture Amplitude (volts) 0.5 V [facility] Thresh RA Capture Duration (ms) 0.4 ms [facility] Thresh RA Sensing Amplitude (mvolts) 2.5 mV [facility] Thresh RV Capture Amplitude (VOLTS) 0.75 V [facility] Thresh RV Capture Duration (MS) 0.4 ms [facility] Thresh RV Sensing Amplitude (MVOLTS) 9.75 mV [facility] Tracking Rate (bpm) 140 {beats}/min [facility] VF Zone Detection Interval 320 ms [facility] VF Zone Therapy Configuration 1 ATP(s) + 6 Shock(s) [facility] No Panel Informationon 11-06 BLANK _ [facility] ICD-ATRIALTACHYCARDIA 0 [facility] ICD-Fast Ventricular Tachycardia 0 [facility] Implant Date 02/26/2016 [facility] ICD CLINIC CHECKon 2 AV Delay Adaptive Paced Minimum (ms) 150 ms [facility] AV Delay Adaptive Sensed Minimum (ms) 130 ms [facility] AV Delay Adaptive Status ENABLED [facility] Battery Voltage 2.9 V [facility] Cameron LV Pacing Amplitude (volts) 2 V [facility] Cameron LV Pacing Polarity BI [facility] Cameron LV Pacing Pulse Width (ms) 0.6 ms [facility] Cameron RA Pacing Amplitude (volts) 1.5 V [facility] Cameron RA Pacing Polarity BI [facility] Cameron RA Pacing Pulse Width (ms) 0.4 ms [facility] Cameron RA Sensing Amplitude (mvolts) 0.45 mV [facility] Cameron RA Sensing Blanking Period (ms) 150 ms [facility] Cameron RA Sensing Polarity BI [facility] Cameron RA Sensing Refractory Period (ms) Auto [facility] Cameron RV Pacing Amplitude (volts) 2 V [facility] Cameron RV Pacing Polarity BI [facility] Cameron RV Pacing Pulse Width (ms) 0.4 ms [facility] Cameron RV Sensing Amplitude (mvolts) 0.3 mV [facility] Cameron RV Sensing Blanking Period (ms) 200 ms [facility] Cameron RV Sensing Polarity BI [facility] Detection Configuration (Vent) 1 - Zone [facility] FastVT_Detection Interval Blank [facility] ICD ATAF DetectionInterval ms 350 ms [facility] ICD ATAF DetectionStatus ENABLED [facility] ICD FastVT DetectionStatus DISABLED [facility] ICD-ADLRATE_BPM 95 {beats}/min [facility] ICD-AMS EPISODES 171 {beats}/min [facility] ICD-ATP Episodes (Vent) [address] [facility] ICD-ATRIALFIBRILLATION 0 Cl [facility] ICD-Counters Cleared Date 02/26/2016 [facility] ICD-Device Mfg MDT [facility] ICD-Fast Ventricular Tachycardia 1 [facility] ICD-LEADIMPEDANCEATRIAL 437 ohm [facility] ICD-Percent Pacing (Atrial) 0.56 % [facility] ICD-Percent Pacing (Vent) 4.29 % [facility] ICD-PMT Intervention ENABLED [facility] ICD-PVC Intervention ENABLED [facility] ICD-Rate Modulation Acceleration Reaction 30 s [facility] ICD-Rate Modulation Deceleration Exercise [facility] ICD-Rate Modulation [facility] 3 [facility] ICD-Rate Modulation Threshold MediumLow [facility] ICD-Rhythm sinus rhythm w/ freq PACs [facility] ICD-Shocks Aborted (Vent) 0 [facility] [id number] 0 [facility] ICD-SHOCKSABORTED 0 [facility] ICD-SHOCKSDELIVEREDVENTR ICULAR 0 [facility] ICD-Ventricular Fibrillation 0 [facility] Lead Impedance (LV) 703 ohm [facility] Lead Impedance (RV) 399 ohm [facility] Lead Impedance High Voltage 51 ohm [facility] Lead1 [facility] Lead2 [facility]fg [facility] Lead3 Mfg Medtronic [facility] Location LV [facility] Location RA [facility] Location RV [facility] Lower Rate (bpm) 50 {beats}/min [facility] LV PACING % 97.51 % [facility] Max Sensor Rate (bpm) 140 {beats}/min [facility] MDT_PROG_TACHY_ZONE_DETE CTIONS_STATUS ENABLED [facility] Model [id number] Amplia MRI Quad ROAD GRADER OPERATOR-D [facility] Model 4298/88 LV Lead [facility] Model 5076-52 Capsurefix Novus [facility] Model [id number] [facility] Pacemaker Dependent? NO [facility] Pacing Mode DDD [facility] Serial Number [id number] [facility] Serial Number [id number] [facility] Serial Number [id number] [facility] Serial Number [id number] [facility] Test Charge Energy 18 J [facility] Test Charge Time 4.274 [facility] Therapy Status (Vent) Enabled [facility] Thresh LV Capture Amplitude (volts) 1 V [facility] Thresh LV Capture Duration (ms) 0.6 ms [facility] Thresh RA Capture Amplitude (volts) 0.5 V [facility] Thresh RA Capture Duration (ms) 0.4 ms [facility] Thresh RA Sensing Amplitude (mvolts) 3.875 mV [facility] Thresh RV Capture Amplitude (VOLTS) 0.75 V [facility] Thresh RV Capture Duration (MS) 0.4 ms [facility] Thresh RV Sensing Amplitude (MVOLTS) 9.25 mV [facility] Tracking Rate (bpm) 140 {beats}/min [facility] VF Zone Detection Interval 320 ms [facility] VF Zone Therapy Configuration 1 ATP(s) + 6 Shock(s) [facility] No Panel Informationon 10-01 BLANK _ [facility] ICD-Fast Ventricular Tachycardia 0 [facility] Implant Date 02/25/2016 [facility] ICD REMOTE CHECKon AV Delay Adaptive Paced Minimum (ms) 160 ms [facility] AV Delay Adaptive Sensed Minimum (ms) 140 ms [facility] AV Delay Adaptive Status ENABLED [facility] Battery Voltage 2.9 V [facility] Cameron LV Pacing Amplitude (volts) 2 V [facility] Cameron LV Pacing Polarity BI [facility] Cameron LV Pacing Pulse Width (ms) 0.6 ms [facility] Cameron RA Pacing Amplitude (volts) 1.5 V [facility] Cameron RA Pacing Polarity BI [facility] Cameron RA Pacing Pulse Width (ms) 0.4 ms [facility] Cameron RA Sensing Amplitude (mvolts) 0.45 mV [facility] Cameron RA Sensing Blanking Period (ms) 150 ms [facility] Cameron RA Sensing Polarity BI [facility] Cameron RA Sensing Refractory Period (ms) Auto [facility] Cameron RV Pacing Amplitude (volts) 2 V [facility] Cameron RV Pacing Polarity BI [facility] Cameron RV Pacing Pulse Width (ms) 0.4 ms [facility] Cameron RV Sensing Amplitude (mvolts) 0.3 mV [facility] Cameron RV Sensing Blanking Period (ms) 200 ms [facility] Cameron RV Sensing Polarity BI [facility] Detection Configuration (Vent) 1 - Zone [facility] FastVT_Detection Interval Blank [facility] ICD ATAF DetectionInterval ms 350 ms [facility] ICD ATAF DetectionStatus ENABLED [facility] ICD FastVT DetectionStatus DISABLED [facility] ICD-ADLRATE_BPM 95 {beats}/min [facility] ICD-AMS EPISODES 171 {beats}/min [facility] ICD-ATP Episodes (Vent) [address] [facility] ICD-ATRIALFIBRILLATION 0 Cl [facility] ICD-ATRIALTACHYCARDIA 1 [facility] ICD-Counters Cleared Date 02/26/2016 [facility] ICD-Device Mfg MDT [facility] ICD-Fast Ventricular Tachycardia 1 [facility] ICD-LEADIMPEDANCEATRIAL [address] [facility] ICD-Percent Pacing (Atrial) 0.84 % [facility] ICD-Percent Pacing (Vent) 3.75 % [facility] ICD-PMT Intervention ENABLED [facility] ICD-PVC Intervention ENABLED [facility] ICD-Rate Modulation Acceleration Reaction 30 s [facility] ICD-Rate Modulation Deceleration Exercise [facility] ICD-Rate Modulation [facility] 3 [facility] ICD-Rate Modulation Threshold MediumLow [facility] ICD-Shocks Aborted (Vent) 0 [facility] [id number] 0 [facility] ICD-SHOCKSABORTED 0 [facility] ICD-SHOCKSDELIVEREDVENTR ICULAR 0 [facility] ICD-Ventricular Fibrillation 0 [facility] Lead Impedance (LV) 646 ohm [facility] Lead Impedance (RV) 399 ohm [facility] Lead Impedance High Voltage 44 ohm [facility] Lead1 [facility] Lead2 [facility] Lead3 Mfg Medtronic [facility] Location LV [facility] Location RA [facility] Location RV [facility] Lower Rate (bpm) 50 {beats}/min [facility] LV PACING % 97.79 % [facility] Max Sensor Rate (bpm) 140 {beats}/min [facility] MDT_PROG_TACHY_ZONE_DETE CTIONS_STATUS ENABLED [facility] Model [id number] Amplia MRI Quad ROAD GRADER OPERATOR-D [facility] Model 4298/88 LV Lead [facility] Model 5076-52 [employer] Novus [facility] Model 8371T61 [facility] Pacing Mode DDD [facility] Serial Number [id number] [facility] Serial Number [id number] [facility] Serial Number [id number] [facility] Serial Number [id number] [facility] Test Charge Energy [facility] Test [facility] 4.274 [facility] Therapy Status (Vent) Enabled [facility] Thresh LV Capture Amplitude (volts) 1.5 V [facility] Thresh LV Capture Duration (ms) 0.6 ms [facility] Thresh RA Capture Amplitude (volts) 0.5 V [facility] Thresh RA Capture Duration (ms) 0.4 ms [facility] Thresh RA Sensing Amplitude (mvolts) 2.25 mV [facility] Thresh RV Capture Amplitude (VOLTS) 0.75 V [facility] Thresh RV Capture Duration (MS) 0.4 ms [facility] Thresh RV Sensing Amplitude (MVOLTS) 10.125 mV [facility] Tracking Rate (bpm) 140 {beats}/min [facility] VF Zone Detection Interval 320 ms [facility] VF Zone Therapy Configuration 1 ATP(s) + 6 Shock(s) [facility] No Panel Informationon 07-29 BLANK _ [facility] ICD-ATRIALTACHYCARDIA 0 [facility] ICD-Fast Ventricular Tachycardia 0 [facility] Implant Date 02/25/2016 [facility] ICD REMOTE CHECKon 2 AV Delay Adaptive Paced Minimum (ms) 170 ms [facility] AV Delay Adaptive Sensed Minimum (ms) 140 ms [facility] AV Delay Adaptive Status ENABLED [facility] Battery Voltage 2.92 V [facility] Cameron LV Pacing Amplitude (volts) 2.5 V [facility] Cameron LV Pacing Polarity BI [facility] Cameron LV Pacing Pulse Width (ms) 0.6 ms [facility] Cameron RA Pacing Amplitude (volts) 1.5 V [facility] Cameron RA Pacing Polarity BI [facility] Cameron RA Pacing Pulse Width (ms) 0.4 ms [facility] Cameron RA Sensing Amplitude (mvolts) 0.45 mV [facility] Cameron RA Sensing Blanking Period (ms) 150 ms [facility] Cameron RA Sensing Polarity BI [facility] Cameron RA Sensing Refractory Period (ms) Auto [facility] Cameron RV Pacing Amplitude (volts) 2 V [facility] Cameron RV Pacing Polarity BI [facility] Cameron RV Pacing Pulse Width (ms) 0.4 ms [facility] Cameron RV Sensing Amplitude (mvolts) 0.3 mV [facility] Cameron RV Sensing Blanking Period (ms) 200 ms [facility] Cameron RV Sensing Polarity BI [facility] Detection Configuration (Vent) 1 - Zone [facility] FastVT_Detection Interval Blank [facility] ICD ATAF DetectionInterval ms 350 ms [facility] ICD ATAF DetectionStatus ENABLED [facility] ICD FastVT DetectionStatus DISABLED [facility] ICD-ADLRATE_BPM 95 {beats}/min [facility] ICD-AMS EPISODES 171 {beats}/min [facility] ICD-ATP Episodes (Vent) [address] [facility] ICD-ATRIALFIBRILLATION 0 Cl [facility] ICD-Counters Cleared Date 02/26/2016 [facility] ICD-Device Mfg MDT [facility] ICD-LEADIMPEDANCEATRIAL 399 ohm [facility] ICD-Percent Pacing (Atrial) 0.27 % [facility] ICD-Percent Pacing (Vent) 4.35 % [facility] ICD-PMT Intervention ENABLED [facility] ICD-PVC Intervention ENABLED [facility] ICD-Rate Modulation Acceleration Reaction 30 s [facility] ICD-Rate Modulation Deceleration Exercise [facility] ICD-Rate Modulation [facility] 3 [facility] ICD-Rate Modulation Threshold MediumLow [facility] ICD-Shocks Aborted (Vent) 0 [facility] [id number] 0 [facility] ICD-SHOCKSABORTED 0 [facility] ICD-SHOCKSDELIVEREDVENTR ICULAR 0 [facility] ICD-Ventricular Fibrillation 0 [facility] Lead Impedance (LV) 760 ohm [facility] Lead Impedance (RV) 494 ohm [facility] Lead Impedance High Voltage 52 ohm [facility] Lead1 [facility] Lead2 [facility] Lead3 Mfg Medtronic [facility] Location LV [facility] Location RA [facility] Location RV [facility] Lower Rate (bpm) 50 {beats}/min [facility] LV PACING % 97.45 % [facility] Max Sensor Rate (bpm) 140 {beats}/min [facility] MDT_PROG_TACHY_ZONE_DETE CTIONS_STATUS ENABLED [facility] Model [id number] Amplia MRI Quad ROAD GRADER OPERATOR-D [facility] Model 4298/88 LV Lead [facility] Model 5076-52 [employer] Novus [facility] Model 5402H38 [facility] Pacing Mode DDD [facility] Serial Number [id number] [facility] Serial Number [id number] [facility] Serial Number [id number] [facility] Serial Number [id number] [facility] Test Charge Energy [facility] Test Charge Time 4.224 [facility] Therapy Status (Vent) Enabled [facility] Thresh LV Capture Amplitude (volts) 1.375 V [facility] Thresh LV Capture Duration (ms) 0.6 ms [facility] Thresh RA Capture Amplitude (volts) 0.5 V [facility] Thresh RA Capture Duration (ms) 0.4 ms [facility] Thresh RA Sensing Amplitude (mvolts) 2.375 mV [facility] Thresh RV Capture Amplitude (VOLTS) 0.75 V [facility] Thresh RV Capture Duration (MS) 0.4 ms [facility] Thresh RV Sensing Amplitude (MVOLTS) 12.25 mV [facility] Tracking Rate (bpm) 140 {beats}/min [facility] VF Zone Detection Interval 320 ms [facility] VF Zone Therapy Configuration 1 ATP(s) + 6 Shock(s) [facility] No Panel Informationon 03-12 BLANK _ [facility] ICD-ATRIALTACHYCARDIA 0 [facility] ICD-Fast Ventricular Tachycardia 0 [facility] Implant Date 02/25/2016 [facility] ICD CLINIC CHECKon 2 AV Delay Adaptive Paced Minimum (ms) 150 ms [facility] AV Delay Adaptive Sensed Minimum (ms) 130 ms [facility] AV Delay Adaptive Status ENABLED [facility] Battery Voltage 2.92 V [facility] Cameron LV Pacing Amplitude (volts) 2.25 V [facility] Cameron LV Pacing Polarity BI [facility] Cameron LV Pacing Pulse Width (ms) 0.6 ms [facility] Cameron RA Pacing Amplitude (volts) 1.5 V [facility] Cameron RA Pacing Polarity BI [facility] Cameron RA Pacing Pulse Width (ms) 0.4 ms [facility] Cameron RA Sensing Amplitude (mvolts) 0.45 mV [facility] Cameron RA Sensing Blanking Period (ms) 150 ms [facility] Cameron RA Sensing Polarity BI [facility] Cameron RA Sensing Refractory Period (ms) Auto [facility] Cameron RV Pacing Amplitude (volts) 2 V [facility] Cameron RV Pacing Polarity BI [facility] Cameron RV Pacing Pulse Width (ms) 0.4 ms [facility] Cameron RV Sensing Amplitude (mvolts) 0.3 mV [facility] Cmaeron RV Sensing Blanking Period (ms) 200 ms [facility] Cameron RV Sensing Polarity BI [facility] Detection Configuration (Vent) 1 - Zone [facility] FastVT_Detection Interval Blank [facility] ICD ATAF DetectionInterval ms 350 ms [facility] ICD ATAF DetectionStatus ENABLED [facility] ICD FastVT DetectionStatus DISABLED [facility] ICD-ADLRATE_BPM 95 {beats}/min [facility] ICD-AMS EPISODES 171 {beats}/min [facility] ICD-ATP Episodes (Vent) [address] [facility] ICD-ATRIALFIBRILLATION 0 Cl [facility] ICD-Counters Cleared Date 02/26/2016 [facility] ICD-Device Mfg MDT [facility] ICD-Fast Ventricular Tachycardia 3 [facility] ICD-LEADIMPEDANCEATRIAL 437 ohm [facility] ICD-Percent Pacing (Atrial) 0.36 % [facility] ICD-Percent Pacing (Vent) 5.27 % [facility] ICD-PMT Intervention ENABLED [facility] ICD-PVC Intervention ENABLED [facility] ICD-Rate Modulation Acceleration Reaction 30 s [facility] ICD-Rate Modulation Deceleration Exercise [facility] ICD-Rate Modulation [facility] 3 [facility] ICD-Rate Modulation Threshold MediumLow [facility] ICD-Rhythm sinus rhythm 70's [facility] ICD-Shocks Aborted (Vent) 0 [facility] [id number] 0 [facility] ICD-SHOCKSABORTED 0 [facility] ICD-SHOCKSDELIVEREDVENTR ICULAR 0 [facility] ICD-Ventricular Fibrillation 0 [facility] Lead Impedance (LV) 665 ohm [facility] Lead Impedance (RV) 513 ohm [facility] Lead Impedance High Voltage 52 ohm [facility] Lead1 [facility] Lead2 [facility] Lead3 Mfg Medtronic [facility] Location LV [facility] Location RA [facility] Location RV [facility] Lower Rate (bpm) 50 {beats}/min [facility] LV PACING % 97.76 % [facility] Max Sensor Rate (bpm) 140 {beats}/min [facility] MDT_PROG_TACHY_ZONE_DETE CTIONS_STATUS ENABLED [facility] Model [id number] Amplia MRI Quad ROAD GRADER OPERATOR-D [facility] Model 4298/88 LV Lead [facility] Model 5076-52 [employer] Novus [facility] Model 4084C15 [facility] Pacemaker Dependent? NO [facility] Pacing Mode DDD [facility] Serial Number [id number] [facility] Serial Number [id number] [facility] Serial Number [id number] [facility] Serial Number [id number] [facility] Test Charge Energy [facility] Test Charge Time 4.174 [facility] Therapy Status (Vent) Enabled [facility] Thresh LV Capture Amplitude (volts) 1.75 V [facility] Thresh LV Capture Duration (ms) 0.6 ms [facility] Thresh RA Capture Amplitude (volts) 0.5 V [facility] Thresh RA Capture Duration (ms) 0.4 ms [facility] Thresh RA Sensing Amplitude (mvolts) 4.125 mV [facility] Thresh RV Capture Amplitude (VOLTS) 0.75 V [facility] Thresh RV Capture Duration (MS) 0.4 ms [facility] Thresh RV Sensing Amplitude (MVOLTS) 10.75 mV [facility] Tracking Rate (bpm) 140 {beats}/min [facility] VF Zone Detection Interval 320 ms [facility] VF Zone Therapy Configuration 1 ATP(s) + 6 Shock(s) [facility] No Panel Informationon 01-13 BLANK _ [facility] ICD-Fast Ventricular Tachycardia 0 [facility] Implant Date 02/25/2016 [facility] ICD REMOTE CHECKon 1 AV Delay Adaptive Paced Minimum (ms) 160 ms [facility] AV Delay Adaptive Sensed Minimum (ms) 140 ms [facility] AV Delay Adaptive Status ENABLED [facility] Battery Voltage 2.93 V [facility] Cameron LV Pacing Amplitude (volts) 2.25 V [facility] [place] LV Pacing Polarity BI [facility] [place] LV Pacing Pulse Width (ms) 0.6 ms [facility] Cameron RA Pacing Amplitude (volts) 1.5 V [facility] Cameron RA Pacing Polarity BI [facility] Cameron RA Pacing Pulse Width (ms) 0.4 ms [facility] Cameron RA Sensing Amplitude (mvolts) 0.45 mV [facility] Cameron RA Sensing Blanking Period (ms) 150 ms [facility] Cameron RA Sensing Polarity BI [facility] Cameron RA Sensing Refractory Period (ms) Auto [facility] Cameron RV Pacing Amplitude (volts) 2.25 V [facility] Cameron RV Pacing Polarity BI [facility] Cameron RV Pacing Pulse Width (ms) 0.4 ms [facility] Cameron RV Sensing Amplitude (mvolts) 0.3 mV [facility] Cameron RV Sensing Blanking Period (ms) 200 ms [facility] Cameron RV Sensing Polarity BI [facility] Detection Configuration (Vent) 1 - Zone [facility] FastVT_Detection Interval Blank [facility] ICD ATAF DetectionInterval ms 350 ms [facility] ICD ATAF DetectionStatus ENABLED [facility] ICD FastVT DetectionStatus DISABLED [facility] ICD-ADLRATE_BPM 95 {beats}/min [facility] ICD-AMS EPISODES 171 {beats}/min [facility] ICD-ATP Episodes (Vent) [address] [facility] ICD-ATRIALFIBRILLATION 0 Cl [facility] ICD-ATRIALTACHYCARDIA 2 [facility] ICD-Counters Cleared Date 02/26/2016 [facility] ICD-Device Mfg MDT [facility] ICD-Fast Ventricular Tachycardia 2 [facility] ICD-LEADIMPEDANCEATRIAL 380 ohm [facility] ICD-Percent Pacing (Atrial) 0.46 % [facility] ICD-Percent Pacing (Vent) 5.22 % [facility] ICD-PMT Intervention ENABLED [facility] ICD-PVC Intervention ENABLED [facility] ICD-Rate Modulation Acceleration Reaction 30 s [facility] ICD-Rate Modulation Deceleration Exercise [facility] ICD-Rate Modulation [facility] 3 [facility] ICD-Rate Modulation Threshold MediumLow [facility] ICD-Rhythm -BiV paced @ 88 bpm [facility] ICD-Shocks Aborted (Vent) 0 [facility] [id number] 0 [facility] ICD-SHOCKSABORTED 0 [facility] ICD-SHOCKSDELIVEREDVENTR ICULAR 0 [facility] ICD-Ventricular Fibrillation 0 [facility] Lead Impedance (LV) 703 ohm [facility] Lead Impedance (RV) 456 ohm [facility] Lead Impedance High Voltage 44 ohm [facility] Lead1 [facility] Lead2 [facility]fg [facility] Lead3 [facility]fg [facility] Location LV [facility] Location RA [facility] Location RV [facility] Lower Rate (bpm) 50 {beats}/min [facility] LV PACING % 97.58 % [facility] Max Sensor Rate (bpm) 140 {beats}/min [facility] MDT_PROG_TACHY_ZONE_DETE CTIONS_STATUS ENABLED [facility] Model [id number] Amplia MRI Quad ROAD GRADER OPERATOR-D [facility] Model 4298/88 LV Lead [facility] Model 5076-52 Caps[employer] Novus [facility] Model 1418V46 [facility] Pacing Mode DDD [facility] Serial Number [id number] [facility] Serial Number [id number] [facility] Serial Number [id number] [facility] Serial Number [id number] [facility] Test Charge Energy [facility] Test Charge Time 4.124 [facility] Therapy Status (Vent) Enabled [facility] Thresh LV Capture Amplitude (volts) 1.625 V [facility] Thresh LV Capture Duration (ms) 0.6 ms [facility] Thresh RA Capture Amplitude (volts) 0.5 V [facility] Thresh RA Capture Duration (ms) 0.4 ms [facility] Thresh RA Sensing Amplitude (mvolts) 2.75 mV [facility] Thresh RV Capture Amplitude (VOLTS) 0.875 V [facility] Thresh RV Capture Duration (MS) 0.4 ms [facility] Thresh RV Sensing Amplitude (MVOLTS) 10.625 mV [facility] Tracking Rate (bpm) 140 {beats}/min [facility] VF Zone Detection Interval 320 ms [facility] VF Zone Therapy Configuration 1 ATP(s) + 6 Shock(s) [facility] No Panel Informationon 09-04 BLANK _ [facility] ICD-ATRIALTACHYCARDIA 0 [facility] ICD-Fast Ventricular Tachycardia 0 [facility] Implant Date 02/25/2016 [facility] No Panel Informationon 07-17 [facility] No Panel Informationon 06-17 [facility] No Panel Informationon 06-12 [facility] Otheron 12-10-2020 AV Delay Adaptive Paced Minimum (ms) 160 ms [facility] AV Delay Adaptive Sensed Minimum (ms) 140 ms [facility] AV Delay Adaptive Status ENABLED [facility] Battery Voltage 2.95 V [facility] BLANK _ [facility] Cameron LV Pacing Amplitude (volts) 2 V [facility] [place] LV Pacing Polarity BI [facility] RA Pacing Amplitude (volts) 1.5 V [facility] RA Pacing Polarity BI [facility] [place] RA Sensing Amplitude (mvolts) 0.45 mV [facility] RA Sensing Blanking Period (ms) 150 ms [facility] RA Sensing Polarity BI [facility] [place] RA Sensing Refractory Period (ms) Auto [facility] [place] RV Pacing Amplitude (volts) 2 V [facility] [place] RV Pacing Polarity BI [facility] Cameron RV Sensing Amplitude (mvolts) 0.3 mV [facility] Cameron RV Sensing Blanking Period (ms) 200 ms [facility] Cameron RV Sensing Polarity BI [facility] Detection Configuration (Vent) 1 - Zone [facility] FastVT_Detection Interval Blank [facility] ICD ATAF DetectionInterval ms 350 ms [facility] ICD ATAF DetectionStatus ENABLED [facility] ICD FastVT DetectionStatus DISABLED [facility] ICD-ADLRATE_BPM 95 {beats}/min [facility] ICD-AMS EPISODES 171 {beats}/min [facility] ICD-ATP Episodes (Vent) [address] [facility] ICD-ATRIALFIBRILLATION 0 Cl [facility] ICD-ATRIALTACHYCARDIA 0 [facility] ICD-ATRIALTACHYCARDIA 1 [facility] ICD-Counters Cleared Date 02/26/2016 [facility] ICD-Device Mfg MDT [facility] ICD-Fast Ventricular Tachycardia 1 [facility] ICD-Fast Ventricular Tachycardia 0 [facility] ICD-LEADIMPEDANCEATRIAL 399 ohm [facility] ICD-Percent Pacing (Atrial) 0.39 % [facility] ICD-Percent Pacing (Vent) 4.97 % [facility] ICD-PMT Intervention ENABLED [facility] ICD-PVC Intervention ENABLED [facility] ICD-Rate Modulation Acceleration Reaction 30 s [facility] ICD-Rate Modulation Deceleration Exercise [facility] ICD-Rate Modulation [facility] 3 [facility] ICD-Rate Modulation Threshold MediumLow [facility] ICD-Rhythm -OCCUPATIONAL HEALTH PHYSIOTHERAPIST @ 74 bpm [facility] ICD-Shocks Aborted (Vent) 0 [facility] [id number] 0 [facility] ICD-SHOCKSABORTED 0 [facility] ICD-SHOCKSDELIVEREDVENTR ICULAR 0 [facility] ICD-Ventricular Fibrillation 0 [facility] Implant Date 02/25/2016 [facility] Lead Impedance (LV) 665 ohm [facility] Lead Impedance (RV) 456 ohm [facility] Lead Impedance High Voltage 47 ohm [facility] Lead1 [facility] Lead2 Mfg Medtronic [facility] Lead3 Mfg Medtronic [facility] Location LV [facility] Location RA [facility] Location RV [facility] Lower Rate (bpm) 50 {beats}/min [facility] LV PACING % 98.07 % [facility] Max Sensor Rate (bpm) 140 {beats}/min [facility] MDT_PROG_TACHY_ZONE_DETE CTIONS_STATUS ENABLED [facility] Model [id number] Amplia MRI Quad ROAD GRADER OPERATOR-D [facility] Model 4298/88 LV Lead [facility] Model 5076-52 C[employer] Novus [facility] Model 7671G32 [facility] Pacing Mode DDD [facility] Serial Number [id number] [facility] Serial Number [id number] [facility] Serial Number [id number] [facility] [facility] Serial Number [id number] [facility] Test Charge Energy 18 [facility] Test Charge Time 4.023 [facility] Therapy Status (Vent) Enabled [facility] Thresh LV Capture Amplitude (volts) 1.375 V [facility] Thresh LV Capture Duration (ms) 0.6 ms [facility] Thresh RA Capture Amplitude (volts) 0.5 V [facility] Thresh RA Capture Duration (ms) 0.4 ms [facility] Thresh RA Sensing Amplitude (mvolts) 2.75 mV [facility] Thresh RV Capture Amplitude (VOLTS) 1 V [facility] Thresh RV Capture Duration (MS) 0.4 ms [facility] Thresh RV Sensing Amplitude (MVOLTS) 9 mV [facility] Tracking Rate (bpm) 140 {beats}/min [facility] VF Zone Detection Interval 320 ms [facility] VF Zone Therapy Configuration 1 ATP(s) + 6 Shock(s) [facility] Other 12-09-2020 [facility] 09-02-2020 AV Delay Adaptive Paced Minimum (ms) 170 ms [facility] AV Delay Adaptive Sensed Minimum (ms) 130 ms [facility] AV Delay Adaptive Status ENABLED [facility] Battery Voltage 2.95 V [facility] BLANK _ [facility] Cameron LV Pacing Amplitude (volts) 2 V [facility] Cameron LV Pacing Polarity BI [facility] Cameron RA Pacing Amplitude (volts) 1.5 V [facility] Cameron RA Pacing Polarity BI [facility] Cameron RA Sensing Amplitude (mvolts) 0.45 mV [facility] Cameron RA Sensing Blanking Period (ms) 150 ms [facility] Cameron RA Sensing Polarity BI [facility] Cameron RA Sensing Refractory Period (ms) Auto [facility] Cameron RV Pacing Amplitude (volts) 2 V [facility] Cameron RV Pacing Polarity BI [facility] Cameron RV Sensing Amplitude (mvolts) 0.3 mV [facility] Cameron RV Sensing Blanking Period (ms) 200 ms [facility] Cameron RV Sensing Polarity BI [facility] Detection Configuration (Vent) 1 - Zone [facility] FastVT_Detection Interval Blank [facility] ICD ATAF DetectionInterval ms 350 ms [facility] ICD ATAF DetectionStatus ENABLED [facility] ICD FastVT DetectionStatus DISABLED [facility] ICD-ADLRATE_BPM 95 {beats}/min [facility] ICD-AMS EPISODES 171 {beats}/min [facility] ICD-ATP Episodes (Vent) [address] [facility] ICD-ATRIALFIBRILLATION 0 Cl [facility] ICD-Counters Cleared Date 02/26/2016 [facility] ICD-Device Mfg MDT [facility] ICD-Fast Ventricular Tachycardia 1 [facility] ICD-Fast Ventricular Tachycardia 0 [facility] ICD-LEADIMPEDANCEATRIAL 399 ohm [facility] ICD-Percent Pacing (Atrial) 0.37 % [facility] ICD-Percent Pacing (Vent) 5.84 % [facility] ICD-PMT Intervention ENABLED [facility] ICD-PVC Intervention ENABLED [facility] ICD-Rate Modulation Acceleration Reaction 30 s [facility] ICD-Rate Modulation Deceleration Exercise [facility] ICD-Rate Modulation [facility] 3 [facility] ICD-Rate Modulation Threshold MediumLow [facility] ICD-Rhythm sinus rhythm 60s [facility] ICD-Shocks Aborted (Vent) 0 [facility] [id number] 0 [facility] ICD-SHOCKSABORTED 0 [facility] ICD-SHOCKSDELIVEREDVENTR ICULAR 0 [facility] ICD-Ventricular Fibrillation 0 [facility] Implant Date 02/25/2016 [facility] Lead Impedance (LV) 627 ohm [facility] Lead Impedance (RV) 456 ohm [facility] Lead Impedance High Voltage 49 ohm [facility] Lead1 Mfg Medtronic [facility] Lead2 Mfg Medtronic [facility] Lead3 Mfg Medtronic [facility] Location LV [facility] Location RA [facility] Location RV [facility] Lower Rate (bpm) 50 {beats}/min [facility] LV PACING % 98.21 % [facility] Max Sensor Rate (bpm) 140 {beats}/min [facility] MDT_PROG_TACHY_ZONE_DETE CTIONS_STATUS ENABLED [facility] Model [id number] Amplia MRI Quad ROAD GRADER OPERATOR-D [facility] Model 4298/88 LV Lead [facility] Model 5076-52 Capsurefix Novus [facility] Model 0331I41 [facility] Pacemaker Dependent? YES [facility] Pacing Mode DDD [facility] Serial Number [id number] [facility] Serial Number [id number] [facility] Serial Number [id number] [facility] Serial Number [id number] [facility] Test Charge Energy [facility] Test Charge Time 3.973 [facility] Therapy Status (Vent) Enabled [facility] Thresh LV Capture Amplitude (volts) 1.375 V [facility] Thresh LV Capture Duration (ms) 0.6 ms [facility] Thresh RA Capture Amplitude (volts) 0.5 V [facility] Thresh RA Capture Duration (ms) 0.4 ms [facility] Thresh RA Sensing Amplitude (mvolts) 3.625 mV [facility] Thresh RV Capture Amplitude (VOLTS) 0.75 V [facility] Thresh RV Capture Duration (MS) 0.4 ms [facility] Thresh RV Sensing Amplitude (MVOLTS) 9.75 mV [facility] Tracking Rate (bpm) 140 {beats}/min [facility] VF Zone Detection Interval 320 ms [facility] VF Zone Therapy Configuration 1 ATP(s) + 6 Shock(s) [facility] Coronavirus 2019on 0 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 This test was developed and its performance characteristics determined by [facility]'s [facility] [place]. This test has been authorized by FDA under an Emergency Use Authorization (EUA). This test has been validated in accordance with the FDA's Guidance Document Policy for Diagnostics Testing in Laboratories Certified to Perform High Complexity Testing under CLIA prior to Emergency use Authorization for Coronavirus Disease 2019 during the Public Health Emergency issued on December 16, 2019. Performing Laboratory: [facility] [employer] [address] [place] [address] Performed By: #### C D19X #### [facility] [address] [place], [place] [address] CT ABD/PEL W IVCONon 04-15-[address] ABD/PEL W IVCON * * *Final Report* * * DATE OF EXAM: Jan 31 2020 8:25PM [facility] 0530 - CT ABD/PEL W IVCON / PROCEDURE REASON: Infection, abdomen-pelvis * * * * Physician Interpretation * * * * EXAMINATION: CT ABDOMEN AND PELVIS WITH IV CONTRAST CLINICAL HISTORY: Infection, abdomen-pelvis RLQ abdominal pain. Appendicitis suspected. C/O CONGESTED productive cough x 1 month trx by PMD with antibiotic for URI comp pt c/o sob TECHNIQUE: CT of the abdomen and pelvis was performed using standard technique, scanning from just above the dome of the diaphragm to the symphysis pubis. MQ: CTAP_3 Contrast: IV: 150 ml of Omnipaque 300 CT Radiation dose: Integrated Dose-length product (DLP) for this visit = 696 mGy*cm. CT Dose Reduction Employed: mAs-kVp adjusted based on patient size-age COMPARISON: None. RESULT: Liver: Multiple small hypodensities noted throughout the liver. One of the largest measures 7 mm in diameter and is seen in segment 4 on 2:28. Biliary: No bile duct dilation. The gallbladder is contracted. Spleen: No mass. No splenomegaly. Pancreas: No mass or duct dilation. Adrenals: No mass. Kidneys: 13 mm hypodensity upper pole right kidney. Probable cyst. 9 mm hypodensity upper pole right kidney on 2:35. Probable cyst. The kidneys are otherwise unremarkable. GI tract: Moderate amount of stool throughout the colon. Wall thickening involving the distal descending and sigmoid colon. There are diverticula in this region is possible that these changes are related to diverticulitis versus inflammatory/infectio us colitis. The appendix is partially seen and appears grossly normal. Lymph nodes: No abdominal or pelvic lymphadenopathy. Mesentery/Peritoneum: No ascites or mass. Retroperitoneum: No mass. Vasculature: The celiac axis and SMA are patent. The portal vein and branches, splenic vein, SMV, and hepatic veins are patent. Pelvis: No mass, ascites or fluid collection. Bones/Soft Tissues: No significant additional findings Lower thorax: Patient has cardiac pacing leads within the right ventricle along the left ventricular wall. IMPRESSION: Thickening of the wall of the distal descending and sigmoid colon. These changes may be related to underlying diverticulitis. However inflammatory or infectious colitis could also give this appearance. Multiple hypodensities noted in the liver most likely representing cysts. These could be followed up with nonemergent ultrasound to further characterize. Probable cysts in the right kidney. These also could be further characterized with follow-up nonemergent ultrasound. Transportation Planning Engineer[facility] Transcribe Date/Time: Jan 31 2020 8:34P Dictated by : OSCAR ANGEL MD This examination was interpreted and the report reviewed and electronically signed by: OSCAR ANGEL MD on Jan 31 2020 8:43PM EST Normal [facility] Comprehensive Panelon 2019 Albumin [Mass/Vol] 3.2 g/dL Low 3.4-5.0 [facility] Comment on above: Performed By: #### S P14 #### [place] [address] ALP [Catalytic activity/Vol] 54 U/L Normal 46-116 [facility] Comment on above: Performed By: #### S P14 #### [place] [address] ALT-SGPT Blood 29 U/L Normal 12-78 [facility] Comment on above: Performed By: #### S P14 #### [place] [address] Anion gap [Moles/Vol] 13 mmol/L Normal 8-16 [facility] Comment on above: Performed By: #### S P14 #### [place] [address] AST-SGOT Blood 21 U/L Normal 15-46 [facility] Comment on above: Performed By: #### S P14 #### [place] [address] Bilirubin Ql (U) 0.6 mg/dL Normal 0.2-1.0 [facility] Comment on above: Result Comment: Use of this assay is not recommended for patients undergoing treatment with eltrombopag due to the potential for falsely elevated results. Performed By: #### S P14 #### [facility] [address] [place], [place] [address] Calcium [Mass/Vol] 9.0 mg/dL Normal 8.5-10.1 [facility] Comment on above: Performed By: #### S P14 #### [facility] [address] [place], [place] [address] Chloride [Moles/Vol] 104 mmol/L Normal 98-107 [facility] Comment on above: Performed By: #### S P14 #### [facility] [address] [place], [place] [address] CO2 Blood 26 mEq/L Normal 21-32 [facility] Comment on above: Performed By: #### S P14 #### [address] [address] Creatinine [Mass/Vol] 1.08 mg/dL Normal 0.67-1.17 [facility] Comment on above: Result Comment: Use of this assay is not recommended for patients undergoing treatment with phenindione, due to the potential for falsely depressed results. Performed By: #### S P14 #### [facility] [address] [place], [place] [address] Glucose [Mass/Vol] 104 mg/dL High 70-99 [facility] Comment on above: Performed By: #### S P14 #### [address] [address] Potassium [Moles/Vol] 3.8 mmol/L Normal 3.5-5.1 [facility] Comment on above: Performed By: #### S P14 #### [facility] [address] [place], [place] [address] Protein [Mass/Vol] 7.0 g/dL Normal 6.4-8.2 [facility] Comment on above: Performed By: #### S P14 #### [address] [address] Sodium [Moles/Vol] 139 mmol/L Normal 136-145 [facility] Comment on above: Performed By: #### S P14 #### [facility] [address] [place] [address] Urea nitrogen [Mass/Vol] 16 mg/dL Normal 7-18 [facility] Comment on above: Performed By: #### S P14 #### [place] [address] FOB Rectal Digital Examon FOB Rectal Digital Exam Positive Abnormal NEGATIVE A [facility] Comment on above: Performed By: #### S OCLD #### [facility] [address] [place] [address] Hemogram/Diffon 01-31-2020 Abs. Baso 0.07 thou/cmm Normal 0.00-0.08 [facility] Comment on above: Result Comment: Diff erential scan done Performed By: #### S CBCD #### [place] [address] Abs. Pershing 1.05 thou/cmm High 0.19-0.80 [facility] Comment on above: Performed By: #### S CBCD #### [place] [address] Abs. Neut (ANC) 14.33 thou/cmm High 1.35-7.21 [facility] Comment on above: Performed By: #### S CBCD #### [place] [address] Basophils/100 WBC (Bld) 0.4 % Normal A [facility] Comment on above: Performed By: #### S CBCD #### [place] [address] Eosinophils (Bld) [#/Vol] 0.12 thou/cmm Normal 0.00-0.36 [facility] Comment on above: Performed By: #### S CBCD #### [place] [address] Eosinophils/100 WBC (Bld) 0.7 % Normal [facility] Comment on above: Performed By: #### S CBCD #### [facility] [address] [place], [place] [address] Erythrocyte distribution width (RBC) [Ratio] 12.6 % Normal 11.8-14.5 [facility] Comment on above: Performed By: #### S CBCD #### [facility] [address] [place], [place] [address] Hematocrit (Bld) [Volume fraction] 35.9 % Low 39.6-50.7 [facility] Comment on above: Performed By: #### S CBCD #### [facility] [address] [place] [address] Hemoglobin (Bld) [Mass/Vol] 12.6 g/dL Low 13.2-17.4 [facility] Comment on above: Performed By: #### S CBCD #### [place] [address] Lymphocytes (Bld) [#/Vol] 1.15 thou/cmm Normal 0.68-2.93 [facility] Comment on above: Performed By: #### S CBCD #### [address] [address] Lymphocytes/100 WBC (Bld) 6.9 % Normal [facility] Comment on above: Performed By: #### S CBCD #### [facility] [address] [place] [address] MCH (RBC) [Entitic mass] 31.7 pg Normal 27.4-32.8 [facility] Comment on above: Performed By: #### S CBCD #### [facility] [address] [place] [address] MCHC (RBC) [Mass/Vol] 35.1 % Normal 31.9-35.6 [facility] Comment on above: Performed By: #### S CBCD #### [facility] [address] [place], [place] [address] MCV (RBC) [Entitic vol] 90.2 fL Normal 81.8-95.6 [facility] Comment on above: Performed By: #### S CBCD #### [address] [address] Monocytes/100 WBC (Bld) 6.3 % Normal A [facility] Comment on above: Performed By: #### S CBCD #### [facility] [address] [place] [address] Platelet mean volume (Bld) [Entitic vol] 9.3 fL Normal 8.8-12.1 [facility] Comment on above: Performed By: #### S CBCD #### [facility] [address] [place] [address] Platelets (Bld) [#/Vol] 215 thou/cmm Normal 150-370 [facility] Comment on above: Performed By: #### S CBCD #### [facility] [address] [place] [address] RBC (Bld) [#/Vol] 3.98 mil/cmm Low 4.22-5.80 [facility] Comment on above: Performed By: #### S CBCD #### [place] [address] Seg Neutrophil 85.7 % Normal [facility] Comment on above: Performed By: #### S CBCD #### [place] [address] WBC (Bld) [#/Vol] 16.7 thou/cmm High 4.4-9.7 [facility] Comment on above: Performed By: #### S CBCD #### [place] [address] Lipase Bloodon 01-31-2020 Lipase Blood 190 U/L Normal 73-393 [facility] Comment on above: Performed By: #### S LIP #### [place] [address] MDRD eGFRon 01-31-2020 GFR/1.73 sq M predicted among non-blacks MDRD (S/P/Bld) [Vol rate/Area] mL/min/{1.73_m2} Normal >60mL/min/1.7 3m2 [facility] Comment on above: Result Comment: If t he patient is , multiply the result by 1.210. Performed By: #### S GFR #### [facility] [address] [place], [place] [address] N-terminal Pro-BNPon 020 Natriuretic peptide B (Bld) [Mass/Vol] 338 pg/mL Normal [facility] Comment on above: Result Comment: Norm al Reference Range: Patients <75 yrs old <125pg/ml Patients >=75 yrs old <450 pg/ml Performed By: #### S PBNP #### [address] [address] Troponin Ion 01-31-2020 Troponin I.cardiac [Mass/Vol] 0.01 ng/mL Normal <0.04 [facility] Comment on above: Performed By: #### S TRP #### [address] [address] XR CHEST 1V FRONTALon 2019 XR CHEST 1V FRONTAL * * *Final Report* * * DATE OF EXAM: Jan 31 2020 8:25PM ANX 5290 - XR CHEST 1V FRONTAL / PROCEDURE REASON: Acute respiratory illness * * * * Physician Interpretation * * * * EXAMINATION: CHEST RADIOGRAPH (SINGLE VIEW AP OR PA) CLINICAL HISTORY: Acute respiratory illness MQ: XC1_5 Comparison: 01/03/2019 RESULT: Lines, tubes, and devices: Left-sided cardiac pacing device with leads in stable position. Lungs and pleura: No consolidation. No lung mass. No pleural effusion. Cardiomediastinal silhouette: Heart size normal. Other: No additional findings. IMPRESSION: No acute radiographic abnormality. Transportation Planning Engineer: WALTER Transcribe Date/Time: Jan 31 2020 8:33P Dictated by : OSCAR ANGEL MD This examination was interpreted and the report reviewed and electronically signed by: OSCAR ANGEL MD on Jan 31 2020 8:34PM EST Normal [facility] Otheron 12-27-2017 CONVERTED CLINICAL HISTORY OPERATIVE PROCEDURE: EGD / colon CLINICAL INFORMATION: Nausea, GERD, Epigastric pain; screen polyps [facility] CONVERTED ELECTRONIC SIGNATURE CIERRA CAMARENA M.D.,PATHOLOGIST (Electronic signature on file) Final Signed Out: 12/27/2017 15:25 [facility] CONVERTED FINAL DIAGNOSIS FINAL DIAGNOSIS: A) STOMACH, ANTRUM, BIOPSY - FOCALLY ACTIVE MODERATE TO SEVERE CHRONIC GASTRITIS. POSITIVE FOR HELICOBACTER PYLORI (SEE NOTE BELOW PART C). B) GE JUNCTION, BIOPSY - SQUAMOCOLUMNAR MUCOSA WITH MILD CHRONIC INFLAMMATION (SEE NOTE). NOTE: An Alcian blue/PAS stain shows no evidence of intestinal metaplasia. C) STOMACH, BODY, BIOPSY - MILD TO MODERATE CHRONIC GASTRITIS. POSITIVE FOR HELICOBACTER PYLORI (SEE NOTE). NOTE: Immunostains for H. pylori were performed on Parts A and C, and are positive for Helicobacter organisms in both parts. D) COLON, CECUM, POLYP X2 - FRAGMENTS OF TUBULAR ADENOMA, CLINICALLY TWO POLYPS. [facility] CONVERTED GROSS DESCRIPTION GROSS DESCRIPTION: A) Antral biopsy Received in formalin labeled antral biopsy are two coates-red soft tissues aggregating to 0.6 x 0.2 x 0.2 cm, which are totally submitted in cassette A. Levels x 3 plus H. pylori. B) GE junction Received in formalin labeled GE junction biopsy are three coates-red soft tissues aggregating to 0.8 x 0.4 x 0.1 cm, which are totally submitted in cassette B. Levels x 3 plus AB/PAS. C) Gastric body biopsy Received in formalin labeled gastric body biopsy is a coates-red soft tissue measuring 0.5 x 0.3 x 0.2 cm, which is totally submitted in cassette C. Levels x 3 plus H. pylori. D) Cecal polyps x 2 Received in formalin labeled cecal polyps x 2 are four coates-brown soft tissues aggregating to 0.9 x 0.6 x 0.2 cm. Totally submitted in cassette D. Levels x 3. BMP:[facility] CONVERTED ORDERING PROVIDER Ordering Provider: ELVIN REYNOSO [facility] Other [facility] Vital Signs Date Time Vital Sign Value Performing Clinician Facility 05-25-2025 09:30-0400 Body temperature 98 [degF] Dr. Rigo Haile DO Work Phone: [facility] 05-25-2025 09:30-0400 Diastolic blood pressure 66 mm[Hg] Dr. Rigo Haile DO Work Phone: [facility] 05-25-2025 09:30-0400 Heart rate 60 /min Dr. Rigo Haile DO Work Phone: [facility] 05-25-2025 09:30-0400 Respiratory rate 16 /min DrJenny Haile DO Work Phone: 7(562)012-098294 [place] [address] 05-25-2025 09:30-0400 SaO2% (BldA) [Mass fraction] 93 % Dr. Rigo Haile DO Work Phone: 4(295)392-048894 [place] [address] 05-25-2025 09:30-0400 Systolic blood pressure 96 mm[Hg] Dr. Rigo Haile DO Work Phone: 5(309)038-802088 [place] [address] 05-25-2025 09:15-0400 Inhaled oxygen flow rate 2 L/min Dr. Rigo Haile DO Work Phone: 4(072)703-793888 [place] [address] 05-25-2025 08:11-0400 Body height 172.[address] Rigo Haile DO Work Phone: 1(205)518-889988 [place] [address] 05-25-2025 08:11-0400 Body mass index (BMI) [Ratio] 30.4 kg/m2 Dr. Rigo Haile DO Work Phone: 7(481)158-191288 [place] [address] 05-25-2025 08:11-0400 Body weight [address] Rigo Haile DO Work Phone: 6(330)606-103188 [place] [address] 04-30-2025 08:43-0400 Body height 175.[address] Rigo Haile DO Work Phone: 1(255)005-488588 [place] [address] 04-30-2025 08:43-0400 Body mass index (BMI) [Ratio] 29.7 kg/m2 Dr. Rigo Haile DO Work Phone: 1(685)591-944188 [place] [address] 04-30-2025 08:43-0400 Body weight 91.[address] Rigo Haile DO Work Phone: 7(487)199-880094 [place] [address] 04-30-2025 08:43-0400 Diastolic blood pressure 78 mm[Hg] Dr. Rigo Haile DO Work Phone: 8(237)861-322194 [place] [address] 04-30-2025 08:43-0400 Respiratory rate 16 /min Dr. Rigo Haile DO Work Phone: 3(083)666-562894 [place] [address] 04-30-2025 08:43-0400 Systolic blood pressure 111 mm[Hg] Dr. Rigo Haile DO Work Phone: [facility] 04-26-2025 21:41-0400 Body temperature 98.2 [degF] Dr. Rigo Haile DO Work Phone: [facility] 04-26-2025 21:41-0400 Diastolic blood pressure 71 mm[Hg] Dr. Rigo Haile DO Work Phone: 0(815)419-782794 [place] [address] 04-26-2025 21:41-0400 Heart rate 71 /min Dr. Rigo Haile DO Work Phone: 3(261)619-784994 [place] [address] 04-26-2025 21:41-0400 Respiratory rate 18 /min Dr. Rigo Haile DO Work Phone: 4(492)759-634894 [place] [address] 04-26-2025 21:41-0400 SaO2% (BldA) [Mass fraction] 99 % Dr. Rigo Haile DO Work Phone: 5(125)701-833294 [place] [address] 04-26-2025 21:41-0400 Systolic blood pressure 122 mm[Hg] Dr. Rigo Haile DO Work Phone: 5(174)219-320194 [place] [address] 04-26-2025 14:41-0400 Body height 175.[address] Rigo Haile DO Work Phone: [facility] 04-26-2025 14:41-0400 Body mass index (BMI) [Ratio] 29.2 kg/m2 Dr. Rigo Haile DO Work Phone: [facility] 04-26-2025 14:41-0400 Body weight 90.[address] Rigo Haile DO Work Phone: 4(531)734-453294 [place] [address] 03-14-2025 15:04-0400 Body height 172.7 cm Nurse 2 [facility] 03-14-2025 15:04-0400 Body mass index (BMI) [Ratio] 29.89 kg/m2 Nurse 2 [facility] 03-14-2025 15:04-0400 Body weight 89.18 kg Nurse 2 [facility] Comment on above: 195.0 lbs-home weight 03-14-2025 15:04-0400 Diastolic blood pressure 62 mm[Hg] Nurse 2 [facility] 03-14-2025 15:04-0400 Heart rate 65 /min Nurse 2 [facility] Comment on above: regular 03-14-2025 15:04-0400 Respiratory rate 18 /min [facility] 2 [facility] 03-14-2025 15:04-0400 SaO2% (BldA) [Mass fraction] 96 % Nurse 2 [facility] Comment on above: on RA 03-14-2025 15:04-0400 Systolic blood pressure 104 mm[Hg] Nurse 2 [facility] 02-14-2025 15:57-0400 Body mass index (BMI) [Ratio] 29.95 kg/m2 Suzy Humphrys TECHNOLOGY INTERN.TECHNICAL SERVICES REPRESENTATIVE Work Phone: [facility] 02-14-2025 15:57-0400 Body weight 89.36 kg Suzy Humphrys TECHNOLOGY INTERN.TECHNICAL SERVICES REPRESENTATIVE Work Phone: [facility] Comment on above: 194lb at home 02-14-2025 15:57-0400 Diastolic blood pressure 76 mm[Hg] Suzy Humphrys TECHNOLOGY INTERN.TECHNICAL SERVICES REPRESENTATIVE Work Phone: [facility] 02-14-2025 15:57-0400 Heart rate 80 /min Suzy Humphrys TECHNOLOGY INTERN.TECHNICAL SERVICES REPRESENTATIVE Work Phone: [facility] 02-14-2025 15:57-0400 SaO2% (BldA) [Mass fraction] 96 % Suzy Humphrys TECHNOLOGY INTERN.TECHNICAL SERVICES REPRESENTATIVE Work Phone: [facility] Comment on above: RA 02-14-2025 15:57-0400 Systolic blood pressure 125 mm[Hg] Suzy Humphrys TECHNOLOGY INTERN.TECHNICAL SERVICES REPRESENTATIVE Work Phone: [facility] 02-05-2025 14:54-0400 Heart rate 78 /min Madelyn Dapoz TECHNOLOGY INTERN.TECHNICAL SERVICES REPRESENTATIVE Work Phone: [facility] 02-05-2025 14:54-0400 Respiratory rate 17 /min Madelyn Dapoz TECHNOLOGY INTERN.TECHNICAL SERVICES REPRESENTATIVE Work Phone: [facility] 02-05-2025 14:54-0400 SaO2% (BldA) [Mass fraction] 96 % Madelyn Dc TECHNOLOGY INTERN.TECHNICAL SERVICES REPRESENTATIVE Work Phone: [facility] 01-16-2025 14:03-0400 Heart rate 73 /min Madelyn Dc TECHNOLOGY INTERN.TECHNICAL SERVICES REPRESENTATIVE Work Phone: [facility] 01-16-2025 14:03-0400 Respiratory rate 17 /min Madelyn Dc TECHNOLOGY INTERN.TECHNICAL SERVICES REPRESENTATIVE Work Phone: [facility] 01-16-2025 14:03-0400 SaO2% (BldA) [Mass fraction] 96 % Madelyn Dc TECHNOLOGY INTERN.TECHNICAL SERVICES REPRESENTATIVE Work Phone: [facility] 01-16-2025 11:19-0400 Body mass index (BMI) [Ratio] 29.89 kg/m2 Tomasz Louis MD Work Phone: [facility] 01-16-2025 11:19-0400 Body weight 89.18 kg Tomasz Louis MD Work Phone: [facility] 01-16-2025 11:19-0400 Diastolic blood pressure 79 mm[Hg] Tomasz Louis MD Work Phone: [facility] 01-16-2025 11:19-0400 SaO2% (BldA) [Mass fraction] 97 % Tomasz Louis MD Work Phone: [facility] 01-16-2025 11:19-0400 Systolic blood pressure 121 mm[Hg] Tomasz Louis MD Work Phone: [facility] 09-05-2024 08:08-0500 Body height 172.7 cm Suzy Burris APRN.TECHNICAL SERVICES REPRESENTATIVE Work Phone: [facility] 09-05-2024 08:08-0500 Body mass index (BMI) [Ratio] 30.55 kg/m2 Suzy Burris APRN.TECHNICAL SERVICES REPRESENTATIVE Work Phone: [facility] 09-05-2024 08:08-0500 Body weight 91.13 kg Suzy Burris APRN.TECHNICAL SERVICES REPRESENTATIVE Work Phone: [facility] 09-05-2024 08:08-0500 Diastolic blood pressure 82 mm[Hg] Suzy Burris TECHNOLOGY INTERN.TECHNICAL SERVICES REPRESENTATIVE Work Phone: [facility] 09-05-2024 08:08-0500 Heart rate 84 /min Suzy Burris TECHNOLOGY INTERN.TECHNICAL SERVICES REPRESENTATIVE Work Phone: [facility] 09-05-2024 08:08-0500 Respiratory rate 18 /min Suzy Burris TECHNOLOGY INTERN.TECHNICAL SERVICES REPRESENTATIVE Work Phone: [facility] 09-05-2024 08:08-0500 SaO2% (BldA) [Mass fraction] 95 % Suzy Burris TECHNOLOGY INTERN.TECHNICAL SERVICES REPRESENTATIVE Work Phone: [facility] Comment on above: room air 09-05-2024 08:08-0500 Systolic blood pressure 144 mm[Hg] Suzy Burris TECHNOLOGY INTERN.TECHNICAL SERVICES REPRESENTATIVE Work Phone: [facility] 06-09-2024 08:03-0400 Body temperature 98.1 [degF] Nurse Pob Work Phone: [facility] 05-11-2024 10:58-0400 Body height 172.7 cm Pat Monreal MD Work Phone: [facility] 05-11-2024 10:58-0400 Body mass index (BMI) [Ratio] 28.59 kg/m2 Pat Monreal MD Work Phone: [facility] 05-11-2024 10:58-0400 Body weight 85.28 kg Pat Monreal MD Work Phone: [facility] 05-11-2024 10:58-0400 Diastolic blood pressure 84 mm[Hg] Pat Monreal MD Work Phone: [facility] 05-11-2024 10:58-0400 Heart rate 72 /min Pat Monreal MD Work Phone: [facility] 05-11-2024 10:58-0400 Respiratory rate 18 /min Pat Monreal MD Work Phone: [facility] 05-11-2024 10:58-0400 SaO2% (BldA) [Mass fraction] 97 % Pat Monreal MD Work Phone: [facility] 05-11-2024 10:58-0400 Systolic blood pressure 132 mm[Hg] Pat Monreal MD Work Phone: [facility] 02-09-2024 07:56-0400 Body height 172.7 cm Tomasz Louis MD Work Phone: [facility] 02-09-2024 07:56-0400 Body mass index (BMI) [Ratio] 28.59 kg/m2 Tomasz Louis MD Work Phone: [facility] 02-09-2024 07:56-0400 Body weight 85.28 kg Tomasz Louis MD Work Phone: [facility] 02-09-2024 07:56-0400 Diastolic blood pressure 84 mm[Hg] Tomasz Louis MD Work Phone: [facility] 02-09-2024 07:56-0400 Heart rate 70 /min Tomasz Louis MD Work Phone: [facility] 02-09-2024 07:56-0400 Respiratory rate 18 /min Tomasz Louis MD Work Phone: [facility] 02-09-2024 07:56-0400 SaO2% (BldA) [Mass fraction] 97 % Tomasz Louis MD Work Phone: [facility] 02-09-2024 07:56-0400 Systolic blood pressure 125 mm[Hg] Tomasz Louis MD Work Phone: [facility] 01-07-2024 15:32-0400 Body height 172.7 cm Jim Sherman APRN.CNP, DNP Work Phone: [facility] 01-07-2024 15:32-0400 Body temperature 97.2 [degF] Jim Sherman APRN.CNP, DNP Work Phone: [facility] 01-07-2024 15:32-0400 Body weight 87.9 kg Jim Blaz TECHNOLOGY INTERN.TECHNICAL SERVICES REPRESENTATIVE, DNP Work Phone: [facility] 01-07-2024 15:32-0400 Diastolic blood pressure 82 mm[Hg] Jim Sherman APRN.TECHNICAL SERVICES REPRESENTATIVE, DNP Work Phone: [facility] 01-07-2024 15:32-0400 Heart rate 73 /min Jim Sherman APRN.TECHNICAL SERVICES REPRESENTATIVE, DNP Work Phone: [facility] 01-07-2024 15:32-0400 SaO2% (BldA) [Mass fraction] 95 % Jim Sherman APRN.TECHNICAL SERVICES REPRESENTATIVE, DNP Work Phone: [facility] 01-07-2024 15:32-0400 Systolic blood pressure 114 mm[Hg] Jim Sherman APRN.TECHNICAL SERVICES REPRESENTATIVE, DNP Work Phone: [facility] 12-20-2023 15:10-0500 Body height 172.7 cm Elvin Reynoso MD Work Phone: [facility] 12-20-2023 15:10-0500 Body weight 83.92 kg Elvin Reynoso MD Work Phone: [facility] 12-20-2023 15:10-0500 Diastolic blood pressure 75 mm[Hg] Elvin Reynoso MD Work Phone: [facility] 12-20-2023 15:10-0500 Heart rate 78 /min Elvin Reynoso MD Work Phone: [facility] 12-20-2023 15:10-0500 Respiratory rate 20 /min Elvin Reynoso MD Work Phone: [facility] 12-20-2023 15:10-0500 Systolic blood pressure 137 mm[Hg] Elvin Reynoso MD Work Phone: [facility] 11-26-2023 15:10-0500 Body height 172.7 cm Jim Sherman APRN.TECHNICAL SERVICES REPRESENTATIVE, DNP Work Phone: [facility] 11-26-2023 15:10-0500 Body weight 86.46 kg Jim Sherman APRN.TECHNICAL SERVICES REPRESENTATIVE, DNP Work Phone: [facility] 11-26-2023 15:10-0500 Diastolic blood pressure 97 mm[Hg] Jim Sherman APRN.TECHNICAL SERVICES REPRESENTATIVE, DNP Work Phone: [facility] 11-26-2023 15:10-0500 Heart rate 79 /min Jim Sherman APRN.TECHNICAL SERVICES REPRESENTATIVE, DNP Work Phone: [facility] 11-26-2023 15:10-0500 SaO2% (BldA) [Mass fraction] 95 % Jim Sherman APRN.TECHNICAL SERVICES REPRESENTATIVE, DNP Work Phone: [facility] 11-26-2023 15:10-0500 Systolic blood pressure 167 mm[Hg] Jim Sherman APRN.TECHNICAL SERVICES REPRESENTATIVE, DNP Work Phone: [facility] 11-19-2023 10:36-0500 Diastolic blood pressure 73 mm[Hg] Elvin Reynoso MD Work Phone: [facility] 11-19-2023 10:36-0500 SaO2% (BldA) [Mass fraction] 98 % Elvin Reynoso MD Work Phone: [facility] 11-19-2023 10:36-0500 Systolic blood pressure 141 mm[Hg] Elvin Reynoso MD Work Phone: [facility] 11-19-2023 10:26-0500 Respiratory rate 14 /min Elvin Reynoso MD Work Phone: [facility] 11-19-2023 10:16-0500 Body temperature 97.5 [degF] Elvin Reynoso MD Work Phone: [facility] 11-19-2023 08:20-0500 Body height 172.7 cm Elvin Reynoso MD Work Phone: [facility] 11-19-2023 08:20-0500 Body weight 81.65 kg Elvin Reynoso MD Work Phone: [facility] 11-19-2023 08:20-0500 Heart rate 80 /min Elvin Reynoso MD Work Phone: [facility] 09-20-2023 13:12-0500 Body height 172.7 cm Elvin Reynoso MD Work Phone: [facility] 09-20-2023 13:12-0500 Body weight 85.28 kg Elvin Reynoso MD Work Phone: [facility] 09-20-2023 13:12-0500 Diastolic blood pressure 79 mm[Hg] Elvin Reynoso MD Work Phone: [facility] 09-20-2023 13:12-0500 Heart rate 84 /min Elvin Reynoso MD Work Phone: [facility] 09-20-2023 13:12-0500 Respiratory rate 20 /min Elvin Reynoso MD Work Phone: [facility] 09-20-2023 13:12-0500 Systolic blood pressure 126 mm[Hg] Elvin Reynoso MD Work Phone: [facility] 11-19-2022 08:16-0500 Body height 172.7 cm Nicol Prado APRN.TECHNICAL SERVICES REPRESENTATIVE Work Phone: [facility] 11-19-2022 08:16-0500 Body weight 85.37 kg Nicol Prado APRN.TECHNICAL SERVICES REPRESENTATIVE Work Phone: [facility] 11-19-2022 08:16-0500 Diastolic blood pressure 84 mm[Hg] Nicol Prado APRN.TECHNICAL SERVICES REPRESENTATIVE Work Phone: [facility] 11-19-2022 08:16-0500 Heart rate 74 /min Nicol Prado APRN.TECHNICAL SERVICES REPRESENTATIVE Work Phone: [facility] 11-19-2022 08:16-0500 Respiratory rate 18 /min Nicol Prado APRN.TECHNICAL SERVICES REPRESENTATIVE Work Phone: [facility] 11-19-2022 08:16-0500 SaO2% (BldA) [Mass fraction] 96 % Nicol Prado APRN.TECHNICAL SERVICES REPRESENTATIVE Work Phone: [facility] 11-19-2022 08:16-0500 Systolic blood pressure 138 mm[Hg] Nicol Prado APRN.TECHNICAL SERVICES REPRESENTATIVE Work Phone: [facility] 02-25-2022 09:42-0400 Body height 172.7 cm Elvin Reynoso MD Work Phone: [facility] 02-25-2022 09:42-0400 Body weight 90.72 kg Elvin Reynoso MD Work Phone: [facility] 02-25-2022 09:42-0400 Diastolic blood pressure 86 mm[Hg] Elvin Reynoso MD Work Phone: [facility] 02-25-2022 09:42-0400 Heart rate 77 /min Elvin Reynoso MD Work Phone: [facility] 02-25-2022 09:42-0400 Respiratory rate 20 /min Elvin Reynoso MD Work Phone: [facility] 02-25-2022 09:42-0400 Systolic blood pressure 166 mm[Hg] Elvin Reynoso MD Work Phone: [facility] 05-01-2021 08:05-0400 Body height 172.7 cm Tomasz Louis MD Work Phone: [facility] 05-01-2021 08:05-0400 Body weight 88.91 kg Tomasz Louis MD Work Phone: [facility] 05-01-2021 08:05-0400 Diastolic blood pressure 104 mm[Hg] Tomasz Louis MD Work Phone: [facility] 05-01-2021 08:05-0400 Heart rate 67 /min Tomasz Louis MD Work Phone: [facility] 05-01-2021 08:05-0400 Respiratory rate 18 /min Tomasz Louis MD Work Phone: [facility] 05-01-2021 08:05-0400 SaO2% (BldA) [Mass fraction] 95 % Tomasz Louis MD Work Phone: [facility] 05-01-2021 08:05-0400 Systolic blood pressure 164 mm[Hg] Tomasz Louis MD Work Phone: [facility] 12-10-2020 13:34-0500 Heart rate 0.4 ms Indiresha [facility] 12-10-2020 13:34-0500 Heart rate 0.6 ms Patriciairesha [facility] 10-24-2020 07:52-0500 Body weight 90.72 kg Suzy Burris [facility] 10-24-2020 07:52-0500 BP Diastolic 102 mm[Hg] [facility] 10-24-2020 07:52-0500 BP Systolic 170 mm[Hg] [place] Burris [facility] 10-24-2020 07:52-0500 Height 172.7 cm [facility] 10-24-2020 07:52-0500 Pulse (Heart Rate) 77 /min [facility] tony 10-24-2020 07:52-0500 Pulse Oximetry 98 % [facility] 09-02-2020 10:55-0500 Body weight 86.18 kg [facility] 09-02-2020 10:55-0500 Height 172.7 cm [facility] 09-02-2020 10:55-0500 Respiratory Rate 18 /min [facility] 09-02-2020 08:58-0500 Heart rate 0.4 ms [facility] 09-02-2020 08:58-0500 Heart rate 0.6 ms [facility] 08-26-2020 08:58-0500 Body Temperature 97.3 [degF] [facility] 08-26-2020 08:58-0500 Body weight 86.[address] [facility] 08-26-2020 08:58-0500 BP Diastolic 80 mm[Hg] [facility] 08-26-2020 08:58-0500 BP Systolic 138 mm[Hg] [facility] 08-26-2020 08:58-0500 Height 170.[address] [facility] 08-26-2020 08:58-0500 Pulse (Heart Rate) 76 /min [facility] tony 08-26-2020 08:58-0500 Pulse Oximetry 98 % [facility] Encounters Encounter Date Encounter Type Care Provider Facility Start: 06-08-2025 ambulatory Aneudy Liang lity:[facility] Start: 05-25-2025 Non-patient / Non-visit Dr. Sandee Kenyon MD -[facility] Start: 05-25-2025 End: 05-25-2025 Admission to same day surgery center Dr. Aneudy Kenyon MD -Endoscopy Work Phone: Start: 05-25-2025 End: 05-25-[address] Rigo Haile DO Work Phone: -Endoscopy Start: 05-01-2025 End: 05-01-2025 Telephone encounter Gely Ellison [facility] Comment on above: Patient Update (AG H FC ) Start: 04-30-2025 End: 04-30-[address] Aneudy Kenyon MD -[facility] Work Phone: Start: 04-30-2025 End: 04-30-[address] Rigo Haile DO Work Phone: -[facility] Start: 04-26-2025 End: 04-26-2025 Emergency department patient visit Dr. Rigo Haile DO Work Phone: -Emergency Department Work Phone: Start: 04-25-2025 End: 04-25-2025 Telephone encounter Fabio Montoya RN [facility] Comment on above: Patient Update Start: 04-24-2025 End: 04-25-2025 Emergency department patient visit TOMASZ LOUIS Facility:[facility] Start: 04-24-2025 End: 04-24-2025 Refill Tomasz Louis MD Work Phone: [facility] Comment on above: Refill Request Start: 04-24-2025 End: 04-26-2025 Refill Lucas Ingram MD Work Phone: [facility] Comment on above: Med Change Request Start: 03-14-2025 End: 03-14-2025 Nursing evaluation of patient and report Nurse Card Chf 2 [facility] Comment on above: Congestive heart casi lure, unspecified HF chronicity, unspecified heart failure type (HCC) (Primary Dx) Start: 03-14-2025 End: 03-14-2025 ambulatory TOMASZ LOUIS Facility:[facility] Start: 03-05-2025 End: 03-05-2025 Follow-up encounter Tomasz Louis MD Work Phone: [facility] [place] Comment on above: Results Start: 03-03-2025 End: 03-03-2025 ambulatory TOMASZ LOUIS Facility:[facility] Start: 03-03-2025 End: 03-03-2025 Subsequent hospital visit by physician Xr [place] [facility] Comment on above: 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] Start: 02-22-2025 End: 02-22-2025 Telephone encounter Gely Ellison PSS [facility] Comment on above: Patient Question Patient Update Start: 02-14-2025 End: 02-14-2025 Patient encounter procedure Suzy Mac APRN.TECHNICAL SERVICES REPRESENTATIVE Work Phone: [facility] Comment on above: Chronic HFrEF (heart failure with reduced ejection fraction) (HCC) (Primary Dx) Start: 02-14-2025 End: 02-14-2025 ambulatory SUZY MAC Facility:[facility] Start: 02-08-2025 End: 02-08-2025 ambulatory TOMASZ LOUIS Facility:[facility] Start: 02-05-2025 End: 02-05-2025 Patient encounter procedure Madelyn Dc APRN.TECHNICAL SERVICES REPRESENTATIVE Work Phone: [facility] [place] Comment on above: Myofascial pain (Danelle chavez Dx); Cervical pain Start: 02-05-2025 End: 02-05-2025 ambulatory MADELYN DC Facility:[facility] Start: 01-24-2025 End: 01-24-2025 Follow-up encounter Pat Monreal MD Work Phone: [facility] Start: 01-24-2025 End: 01-24-2025 Patient encounter procedure Pat Monreal MD Work Phone: [facility] Comment on above: ICD Start: 01-24-2025 End: 01-24-2025 ambulatory TOMASZ LOUIS Facility:[facility] Start: 01-18-2025 End: 01-19-2025 Refill Tomasz Louis MD Work Phone: [facility] [place] Comment on above: Refill Request Start: 01-17-2025 End: 01-17-2025 Telephone encounter Dominic Bledsoe RN [facility] Comment on above: Orders; [facility] appt contact-CARLOT[facility], [facility], letter Start: 01-16-2025 End: 01-16-2025 Patient encounter procedure Madelyn Dc TECHNOLOGY INTERN.TECHNICAL SERVICES REPRESENTATIVE Work Phone: [facility] [place] Comment on above: Myofascial pain (Danelle chavez Dx) Start: 01-16-2025 End: 01-16-2025 ambulatory MADELYN DC Facility:[facility] Start: 01-16-2025 End: 01-16-2025 Office outpatient visit 40 minutes Tomasz Louis MD Work Phone: [facility] Comment on above: Dilated cardiomyopat hy (HCC) (Primary Dx); ICD (implantable cardioverter-defibrillator) in place; LBBB (left bundle branch block) Start: 01-16-2025 End: 01-16-2025 ambulatory TOMASZ LOUIS Facility:[facility] Start: 01-08-2025 End: 01-08-2025 Telephone encounter Tomasz Louis MD Work Phone: [facility] [place] Comment on above: Appointment; Results Start: 01-08-2025 ambulatory TOMASZ LOUIS Facility :[facility] Start: 01-08-2025 End: 01-08-2025 Subsequent hospital visit by physician [facility] CARDIAC TESTING Comment on above: 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] Start: 12-29-2024 End: 12-29-2024 Subsequent hospital visit by physician Albina Badillo 2 [facility] Comment on above: Cervical pain [M54.2 ] Start: 12-29-2024 End: 12-29-2024 ambulatory MADELYN DC Facility:[facility] Start: 12-24-2024 End: 12-24-2024 Emergency department patient visit TOMASZ LOUIS Facility:[facility] Start: 12-07-2024 End: 12-07-2024 ambulatory Aliyah Tena MA [facility] Start: 12-07-2024 End: 12-07-2024 Patient encounter procedure Aliyah Tena MA [facility] Comment on above: Population Health Na vigation Outreach ([employer] Unknown PCP/) Start: 09-05-2024 End: 09-05-2024 Professional / ancillary services management Pat Monreal MD Work Phone: [facility] Start: 09-05-2024 End: 09-05-2024 ambulatory PAT MONREAL Facility:[facility] Start: 09-05-2024 End: 09-05-2024 ambulatory SUZY BURRIS Facility:[facility] Start: 09-05-2024 End: 09-05-2024 Follow-up encounter Pat Monreal MD Work Phone: [facility] Comment on above: Remote Pacemaker Fol low Up Start: 09-05-2024 End: 09-05-2024 Patient encounter procedure Suzy Burris TECHNOLOGY INTERN.TECHNICAL SERVICES REPRESENTATIVE Work Phone: [facility] Comment on above: Encounter for barry dent regarding cardiac resynchronization therapy defibrillator (ROAD GRADER OPERATOR-D) (Primary Dx); Cardiomyopathy, nonischemic (HCC); Chronic systolic CHF (congestive heart failure) (HCC) Start: 06-09-2024 End: 06-09-2024 Nursing evaluation of patient and report Nurse Card [place] Pob Work Phone: [facility] [place] Comment on above: ICD (implantable car dioverter-defibrillator) in place (Primary Dx) Start: 06-09-2024 End: 06-09-2024 ambulatory SELF Facility:[facility] Start: 05-30-2024 End: 05-30-2024 ambulatory PAT MONREAL Facility:[facility] Start: 05-12-2024 Telephone encounter Pat Monreal MD Work Phone: [facility] [place] Comment on above: Preparations For Pro cedures Start: 05-11-2024 End: 05-11-2024 Patient encounter procedure Pat Monreal MD Work Phone: [facility] Comment on above: Dilated cardiomyopat hy (HCC) (Primary Dx); Biventricular implantable cardioverter-defibrillator (ICD) at end of device life Start: 05-11-2024 End: 05-11-2024 ambulatory PAT MONREAL Facility:[facility] Start: 05-01-2024 Telephone encounter Pat Monreal MD Work Phone: [facility] Start: 04-30-2024 End: 04-30-2024 Follow-up encounter Pat Monreal MD Work Phone: [facility] Comment on above: Remote Pacemaker Fol low Up Start: 04-30-2024 Professional / ancil nabila services management Pat Monreal MD Work Phone: [facility] [facility] Start: 04-30-2024 End: 04-30-2024 Patient encounter procedure Rem Device Ck [facility] Start: 04-14-2024 Refill Tomasz Louis MD Work Phone: [facility] Comment on above: Refill Request Start: 02-09-2024 End: 02-09-2024 Patient encounter procedure Tomasz Louis MD Work Phone: [facility] [place] Comment on above: Dilated cardiomyopat hy (HCC) (Primary Dx); ICD (implantable cardioverter-defibrillator) in place; Primary hypertension; Mixed hyperlipidemia Start: 01-18-2024 Refill Tomasz Louis MD Work Phone: [facility] Comment on above: Refill Request Start: 01-07-2024 End: 01-07-2024 ambulatory JIM SHERMAN Facility:[facility] Start: 01-07-2024 End: 01-07-2024 Office outpatient visit 25 minutes Jim Sherman TECHNOLOGY INTERN.TECHNICAL SERVICES REPRESENTATIVE, DNP Work Phone: Urology Comment on above: Benign prostatic hyp erplasia with urinary frequency (Primary Dx); Erectile dysfunction due to arterial insufficiency Start: 01-07-2024 End: 01-07-2024 Follow-up encounter Pat Monreal MD Work Phone: [facility] Comment on above: Remote Pacemaker Fol low Up Start: 01-07-2024 ICD Remote F/U Pat wilson MD Work Phone: [facility] Start: 01-07-2024 End: 01-07-2024 Patient encounter procedure Rem Device Ck [facility] Start: 12-20-2023 End: 12-20-2023 Patient encounter procedure Elvin Reynoso MD Work Phone: [facility] Comment on above: Gastroesophageal ref lux disease without esophagitis (Primary Dx); Adenomatous polyp of ascending colon; Serrated polyp of colon; Rectal bleeding; Constipation, unspecified constipation type; Family history of colon cancer Start: 12-01-2023 Orders Only Elvin Reynoso MD Work Phone: [facility] Comment on above: Prostate troubles (P rimary Dx) Start: 11-26-2023 End: 11-26-2023 Office outpatient new 45 minutes Jim Sherman APRN.TECHNICAL SERVICES REPRESENTATIVE, DNP Work Phone: Urology Comment on above: Benign prostatic hyp erplasia with urinary frequency (Primary Dx); Erectile dysfunction due to arterial insufficiency; Screening for genitourinary condition; Prostate cancer screening Start: 11-19-2023 End: 11-19-2023 Preprocedural examination done Elvin Reynoso MD Work Phone: [facility] Start: 11-19-2023 End: 11-19-2023 Subsequent hospital visit by physician Elvin Reynoso MD Work Phone: [facility] Comment on above: Gastroesophageal ref lux disease without esophagitis [K21.9] Start: 09-28-2023 End: 09-28-2023 Follow-up encounter Pat Monreal MD Work Phone: [facility] Comment on above: Remote Pacemaker Fol low Up Start: 09-28-2023 ICD Remote F/U Pat wilson MD Work Phone: [place] ANCILLARY AREA NOT LISTED Start: 09-28-2023 End: 09-28-2023 Patient encounter procedure Rem Device [facility] Start: 09-20-2023 E-mail encounter fro m caregiver Elvin Reynoso MD Work Phone: [facility] Start: 09-20-2023 End: 09-20-2023 Patient encounter procedure Elvin Reynoso MD Work Phone: [facility] Comment on above: Rectal bleeding (Danelle chavez Dx); Gastroesophageal reflux disease without esophagitis; LBBB (left bundle branch block); History of colonic polyps; ICD (implantable cardioverter-defibrillator) in place; Dilated cardiomyopathy (HCC) Gastroesophageal ref lux disease without esophagitis (Primary Dx); Rectal bleeding EGD/Colonoscopy Appo intment Start: 02-12-2023 End: 02-12-2023 Follow-up encounter Rem [facility] DEVICE [facility] Comment on above: Remote Pacemaker Fol low Up Start: 02-12-2023 End: 02-12-2023 Patient encounter procedure Rem Device [facility] Start: 11-19-2022 End: 11-19-2022 Patient encounter procedure Nicol Prado APRN.CNP Work Phone: [facility] Comment on above: Chronic systolic CHF (congestive heart failure) (HCC) (Primary Dx); Cardiac resynchronization therapy defibrillator (ROAD 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; Cardiomyopathy, nonischemic (HCC) Start: 11-10-2022 Refill Tomasz Louis MD Work Phone: [facility] [place] Comment on above: Refill Request Start: 11-05-2022 End: 11-05-2022 Follow-up encounter Pat Monreal MD Work Phone: [facility] Comment on above: Remote Pacemaker Fol low Up Start: 11-05-2022 ICD Remote F/U Pat wilson MD Work Phone: [place] [facility] NOT LISTED Start: 11-05-2022 End: 11-05-2022 Patient encounter procedure Rem Device Ck [facility] Start: 10-01-2022 Follow-up encounter Pat Monreal MD Work Phone: [facility] Start: 10-01-2022 Patient encounter procedure Pat Monreal MD Work Phone: [place] [facility] NOT LISTED Start: 10-01-2022 End: 10-01-2022 Subsequent hospital visit by physician [facility] (I-Stat/Lg Bore/1.5t) [facility] Comment on above: medial mensicus tear Start: 09-23-2022 ambulatory [facility] Start: 07-29-2022 Follow-up encounter Pat Monreal MD Work Phone: [facility] Start: 07-29-2022 ICD Remote F/U Pat wilson MD Work Phone: [place] [facility] NOT LISTED Start: 07-29-2022 End: 07-29-2022 ambulatory Rem [facility] DEVICE [facility] Comment on above: ICD Remote Start: 07-29-2022 End: 07-29-2022 Patient encounter procedure Rem Device [facility] Start: 04-13-2022 Telephone encounter Elvin Reynoso MD Work Phone: [facility] Comment on above: Appointment Cancelle d (PT'S CALLED TO CANCEL HIS EGD/COLONOSCOPY SCHEDULED FOR THIS 04/15/22) Start: 03-25-2022 End: 03-26-2022 ambulatory [facility] Start: 03-12-2022 End: 03-12-2022 Follow-up encounter Pat Monreal MD Work Phone: [facility] Comment on above: Remote Pacemaker Fol low Up Start: 03-12-2022 ICD Remote F/U Pat wilson MD Work Phone: [place] [facility] NOT LISTED Start: 03-12-2022 End: 03-12-2022 Patient encounter procedure Rem Device Ck [facility] Start: 03-11-2022 Orders Only Elvin Reynoso MD Work Phone: [facility] Comment on above: Gastroesophageal ref lux disease without esophagitis (Primary Dx) Rectal bleeding (Danelle chavez Dx); History of colonic polyps Start: 02-25-2022 End: 02-25-2022 Patient encounter procedure Elvin Reynoso MD Work Phone: [facility] Comment on above: Rectal bleeding (Danelle chavez Dx); Gastroesophageal reflux disease without esophagitis; History of colonic polyps; Dilated cardiomyopathy (HCC); LBBB (left bundle branch block); ICD (implantable cardioverter-defibrillator) in place Start: 01-13-2022 End: 01-13-2022 ambulatory Device 1 [facility] DEVICE [facility] Comment on above: ICD Start: 01-13-2022 Follow-up encounter Pat Monreal MD Work Phone: [facility] Start: 01-13-2022 End: 01-13-2022 Patient encounter procedure Device Clinic 1 [facility] Start: 09-24-2021 End: 09-25-2021 [facility] Start: 09-04-2021 End: 09-04-2021 Follow-up encounter Pat Monreal MD Work Phone: [facility] Comment on above: Remote ICD Follow Up Start: 09-04-2021 ICD Remote F/U Pat wilson MD Work Phone: [place] [facility] NOT LISTED Start: 09-04-2021 End: 09-04-2021 Patient encounter procedure Rem Device [facility] Start: 08-15-2021 End: 08-15-2021 Patient encounter procedure Ccf Provider [facility] Department Start: 07-17-2021 End: 07-17-2021 Subsequent hospital visit by physician Xr [place] 2 RADIO [facility] Comment on above: MARTINEZ (dyspnea on exer tion) [R06.00] Start: 06-19-2021 End: 06-19-2021 Telephone encounter Tomasz Louis MD Work Phone: [facility] Comment on above: Results Start: 06-17-2021 End: 06-17-2021 Telephone encounter Tomasz Louis MD Work Phone: [facility] Comment on above: Results Patient Update Start: 06-17-2021 End: 06-17-2021 Subsequent hospital visit by physician Card Lab N[facility] 1 [facility] Comment on above: Shortness of breath [R06.02] Start: 06-13-2021 End: 06-13-2021 Telephone encounter Tomasz Louis MD Work Phone: [facility] Comment on above: Results Start: 06-12-2021 End: 06-12-2021 Telephone encounter Tomasz Louis MD Work Phone: [facility] Comment on above: Orders Start: 06-12-2021 End: 06-12-2021 Subsequent hospital visit by physician [facility] Comment on above: Palpitations [R00.2] Canceled (CC cx: Equ ipment, Prep, Appropriateness) Start: 05-01-2021 End: 05-01-2021 Patient encounter procedure Tomasz Louis MD Work Phone: [facility] [place] Comment on above: Cardiomyopathy, cynthia schemic (HCC) (Primary Dx); Palpitations; Cardiac resynchronization therapy defibrillator (ROAD 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; Chronic systolic CHF (congestive heart failure) (HCC); Precordial pain Start: 04-13-2021 End: 04-13-2021 Refill Matthew Salcedo DO Work Phone: [facility] Comment on above: Refill Request Start: 12-10-2020 End: 12-10-2020 Follow-up encounter Rem Ck [facility] DEVICE [facility] Comment on above: Remote ICD Follow Up Start: 12-10-2020 End: 12-10-2020 Patient encounter procedure Rem Device Ck [facility] Start: 12-09-2020 End: 12-09-2020 Follow-up encounter Pat Monreal Work Phone: [facility] Start: 12-09-2020 ICD Remote F/U Indiresha R Iy er Work Phone: [place] [facility] NOT LISTED Start: 12-09-2020 End: 12-09-2020 Patient encounter procedure [facility] Provider [facility] Start: 12-09-2020 Results Only [facility] Provider [facility] Start: 10-24-2020 End: 10-24-2020 Patient encounter procedure Suzy (Pound Attendant.Lazara Burris Work Phone: [facility] [place] Comment on above: Cardiac resynchroniz ation therapy defibrillator (ROAD 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 (Primary Dx); Chronic systolic CHF (congestive heart failure) (HCC); Cardiomyopathy, nonischemic (HCC); LBBB (left bundle branch block); Primary hypertension Start: 09-09-2020 End: 09-09-2020 Letter encounter Ag Card Work Phone: [facility] [place] Start: 09-06-2020 End: 09-06-2020 Telephone encounter Elvin Reynoso Work Phone: [facility] Comment on above: Future Appointment ( ATTEMPT TO SCHEDULE - NO ANSWER - LEFT MESSAGE TO CALL OFFICE TO SCHEDULE RE:PPG REFERRAL PORTAL) Start: 09-02-2020 End: 09-02-2020 Follow-up encounter Pat Monreal Work Phone: [facility] Start: 09-02-2020 End: 09-02-2020 Patient encounter procedure Device Clinic 1 [facility] Comment on above: ICD Start: 09-02-2020 Results Only [facility]cf Provider [facility] AREA NOT LISTED Start: 09-02-2020 End: 09-02-2020 Patient encounter procedure Jaleel Vasquez Work Phone: [facility] Comment on above: Tendinitis of right rotator cuff (Primary Dx) Start: 08-26-2020 End: 08-26-2020 Telephone encounter Kenn Sauceda Work Phone: [facility] Comment on above: Referral Request (Or tho) Start: 08-26-2020 End: 08-26-2020 Patient encounter procedure Kenn Sauceda Work Phone: [facility] Comment on above: Wellness examination (Primary Dx); Migraine with aura, not intractable, without status migrainosus; Benign paroxysmal positional vertigo, unspecified laterality; Heme positive stool; Screening for colon cancer; Screening for lipid disorders; Screening for diabetes mellitus; Thumb pain, right; Chronic right shoulder pain Start: 07-01-2020 End: 07-01-2020 Patient encounter procedure Vinita Gonzalez [facility] Comment on above: Needs PCP APPT (ACO- Scheduled Medicare Wellness) Start: 12-24-2017 End: 12-24-2017 Patient encounter procedure Elvin Reynoso Work Phone: [facility] Start: 12-24-2017 Results Only Elvin Reynoso Work Phone: [facility] Procedures Date Procedure Procedure Detail Performing Clinician Start: 05-25-[address] Rigo sahni DO Work Phone: Start: 04-26-2025 D-dimer assay, quantitative Dr. Rigo boucher DO Work Phone: Comment on above: NORMAL D-Dimer level (<0.50) indicates n o DVT or PE. Start: 04-26-2025 Computed tomography of abdomen and pelvis with intravenous contrast Dr. Rigo Haile DO Work Phone: Start: 04-26-2025 X-ray of chest, PA and lateral views Dr. Rigo Haile DO Work Phone: Start: 04-26-2025 Urnls dip stick/tablet reagent auto microscopy Dr. Rigo Haile DO Work Phone: Start: 04-26-[address] Rigo Haile DO Work Phone: Start: 03-03-2025 Lipid 1996 panel - Serum or Plasma Xr St ow Start: 01-24-2025 ICD CLINIC CHECK Pat Monreal MD Work Phone: Start: 01-08-2025 Echo tthrc r-t 2d w/wom-mode compl spec&colr d Tomasz Louis MD Work Phone: Start: 09-05-2024 Ecg routine ecg w/least 12 lds w/i&r Suzy Burris TECHNOLOGY INTERN.[facility] Work Phone: Start: 09-05-2024 ICD REMOTE CHECK Pat Monreal MD Work Phone: Start: 04-30-2024 ICD REMOTE CHECK Pat Monreal MD Work Phone: Start: 01-07-2024 Urnls dip stick/tablet rgnt auto w/o microscopy Jim Sherman TECHNOLOGY INTERN.[facility] Work Phone: Start: 01-07-2024 ICD REMOTE CHECK Pat Monreal MD Work Phone: Start: 11-26-2023 Urnls dip stick/tablet reagent auto microscopy Jim Sherman TECHNOLOGY INTERN.[facility] Work Phone: Start: 11-26-2023 Urnls dip stick/tablet rgnt auto w/o microscopy Jim Sherman TECHNOLOGY INTERN.[facility] Work Phone: Start: 11-19-2023 Colonoscopy Pat Monreal MD Work Phone: Start: 09-28-2023 ICD REMOTE CHECK Pat Monreal MD Work Phone: Start: 11-05-2022 ICD REMOTE CHECK Pat Monreal MD Work Phone: Start: 10-01-2022 ICD CLINIC CHECK Pat Monreal MD Work Phone: Start: 07-29-2022 ICD REMOTE CHECK Pat Monreal MD Work Phone: Start: 03-12-2022 ICD REMOTE CHECK Pat Monreal MD Work Phone: Start: 01-13-2022 ICD CLINIC CHECK Pat Monreal MD Work Phone: Start: 09-04-2021 ICD REMOTE CHECK Pat Monreal MD Work Phone: Start: 09-30-2021 Radiologic exam chest 2 views Kendrick Cu tler MD Work Phone: Start: 06-19-2021 Lipid 1996 panel - Serum or Plasma Josesito Reynoso MD Work Phone: Start: 06-17-2021 Myocardial spect multiple studies Tomasz Louis MD Work Phone: Start: 06-12-2021 Echo tthrc r-t 2d w/wom-mode compl spec&colr d Tomasz Louis MD Work Phone: Start: 05-01-2021 Ecg routine ecg w/least 12 lds w/i&r Tomasz Louis MD Work Phone: Start: 12-09-2020 CARDIAC DATA AND REPORT [facility] Provider Start: 12-09-2020 ICD REMOTE CHECK Pat Monreal Work Phone: Start: 09-02-2020 Radex shoulder complete minimum 2 views Jaleel Helder Vasquez Work Phone: Start: 09-02-2020 CARDIAC DATA AND REPORT [facility] Provider Start: 09-02-2020 ICD CLINIC CHECK Pat Monreal Work Phone: Start: 01-09-2020 Adult depression screening assessment Pat Monreal Start: 12-24-2017 CONVERTED SURGICAL PATHOLOGY Elvin Reynoso Work Phone: Start: 12-24-2017 Colonoscopy Vinita Gonzalez Plan of Treatment Date Care Activity Detail Author Start: 08-26-2030 Urine microalbumin profile [facility] Start: 03-03-2030 Lipid panel Lipid Screening [facility] Start: 12-04-2028 Prostate specific antigen measurement Prostate Cancer Screening Discussion [facility] Start: 04-24-2028 Diabetes Screening Diabetes Screening [facility] Start: 03-03-2028 Diabetes Screening Diabetes Screening [facility] Start: 05-30-2027 Diabetes Screening Diabetes Screening [facility] Start: 11-19-2026 Screening for malignant neoplasm of colon [facility] Start: 07-19-2026 Diabetes Screening Diabetes Screening [facility] Start: 06-19-2026 Lipid 1996 panel - Serum or Plasma Lipid Screening [facility] Start: 06-19-2026 Lipid panel Lipid Screening [facility] Start: 06-19-2026 LIPID SCREEN LIPID SCREEN [facility] Start: 03-14-2026 BP Controlled (<130/80) BP Controlled (<130/80) [facility] Start: 03-03-2026 Hepatitis B surface antibody level LDL Cholesterol [facility] Start: 02-14-2026 BP Controlled (<130/80) BP Controlled (<130/80) [facility] Start: 01-16-2026 BP Controlled (<130/80) BP Controlled (<130/80) [facility] Start: 08-24-2025 End: 08-24-2025 Patient encounter procedure 08/24/2025 7:15 AM EST Office Visit [facility] [address] [place], [place] [phone] Suzy Mac APRN.TECHNICAL SERVICES REPRESENTATIVE [address] [place], [place] [phone] 3, Nurse Card Chf 6 month f/u [facility] Comment on above: 6 month f/u Start: 06-18-2025 Influenza vaccination [facility] Start: 06-05-2025 End: 06-05-2025 Patient encounter procedure [facility] Comment on above: Annual dilated cardiomyopathy srs ICD/Rah ICD/Rah - keeping j ust in case needed. can cancel if pt/iri without c/o Start: 05-28-2025 End: 05-28-2025 Patient encounter procedure 05/28/2025 2:45 PM EDT Office Visit [facility] 1 [facility] 3rd [place] [address] Elvin Reynoso MD 1 [facility] [address] [place] [id number] CONTINUED RECTAL BLEEDING, ABDOMINAL PAIN, GERD [facility] Comment on above: CONTINUED RECTAL BLEEDING, ABDOMINAL NIKI N, GERD Start: 05-25-2025 Patient discharge [facility] Start: 05-01-2025 End: 05-01-2025 Patient encounter procedure 05/01/2025 7:15 AM EDT Office Visit [facility] [address] [facility] [place] [phone] Suzy Mac, TECHNOLOGY INTERN.TECHNICAL SERVICES REPRESENTATIVE [address] [facility] [place] [id number] 3, Nurse Card Chf increased SOB, abdomen swelling per pt [facility] Comment on above: increased SOB, abdomen swelling per pt Start: 04-26-2025 [facility] Start: 04-26-2025 [facility] Start: 04-23-2025 End: 04-23-2025 Patient encounter procedure [facility] Comment on above: ICD/Rah Start: 03-14-2025 End: 03-14-2025 Nursing evaluation of patient and report 03/14/2025 3:00 PM EDT Nurse Visit [facility] [address] [place], [place] [phone] 2, Nurse Card Chf Established 1 mo f/u [facility] Comment on above: Established 1 mo f/u Start: 03-01-2025 End: 03-01-2025 Patient encounter procedure [facility] Comment on above: TPI Start: 02-14-2025 End: 02-14-2025 Patient encounter procedure 02/14/2025 3:45 PM EDT Office Visit [facility] [address] [facility] [place] [phone] Suzy Mac, TECHNOLOGY INTERN.TECHNICAL SERVICES REPRESENTATIVE [address] [place], [place] [phone] 3, Nurse Card Chf new/Sigel order [facility] Comment on above: new/Sigel order Start: 02-08-2025 End: 02-08-2025 Nursing evaluation of patient and report 02/08/2025 1:00 PM EDT Nurse Visit [facility] [address] [facility] [place] [phone] 2, Nurse Card Chf new/Sigel order [facility] Comment on above: new/Sigel order Start: 02-06-2025 End: 05-08-2025 Comprehensive metabolic 2000 panel - Serum or Plasma COMPREHENSIVE METABOLIC PANEL Lab Routine Dilated cardiomyopathy (HCC) Expected: 02/06/2025 (Approximate), Expires: 05/08/2025 [facility] Comment on above: Expected: 02/06/2025 (Approximate), Expi res: 05/08/2025 Start: 02-06-2025 End: 02-15-2026 XR Chest PA and Lateral XR CHEST 2V FRONTAL/LAT Radiology Routine Dilated cardiomyopathy (HCC) Expected: 02/06/2025 (Approximate), Expires: 02/15/2026 [facility] Work Phone: Comment on above: Expected: 02/06/2025 (Approximate), Expi res: 02/15/2026 Start: 02-06-2025 End: 02-06-2025 Patient encounter procedure 02/06/2025 8:00 AM EDT Procedure [facility] [address] [place], [place] [phone] ICD/Rah [facility] Comment on above: ICD/Rah Start: 02-05-2025 End: 02-05-2025 Patient encounter procedure 02/05/2025 3:15 PM EDT Office Visit [facility] [address] [place] [address] Madelyn Dc APRN.TECHNICAL SERVICES REPRESENTATIVE [address] [address] TPI follow up [facility] Comment on above: TPI follow up Start: 01-16-2025 End: 01-16-2025 Patient encounter procedure 01/16/2025 2:15 PM EDT Office Visit [facility] [address] [place] [address] Madelyn Dc APRN.TECHNICAL SERVICES REPRESENTATIVE [address] [place] [address] TPI [facility] Comment on above: TPI Start: 01-16-2025 End: 04-17-2025 CBC panel - Blood by Automated count COMPLETE BLOOD COUNT Lab Routine Dilated cardiomyopathy (HCC) ICD (implantable cardioverter-defibrillato r) in place LBBB (left bundle branch block) Expected: 01/16/2025, Expires: 04/17/2025 [facility] Comment on above: Expected: 01/16/2025, Expires: Start: 01-16-2025 End: 04-17-2025 Creatine kinase [Enzymatic activity/volume] in Serum or Plasma CREATINE KINASE/CK Lab Routine Dilated cardiomyopathy (HCC) ICD (implantable cardioverter-defibrillato r) in place LBBB (left bundle branch block) Expected: 01/16/2025, Expires: 04/17/2025 [facility] Comment on above: Expected: 01/16/2025, Expires: Start: 01-16-2025 End: 04-17-2025 Lipid 1996 panel - Serum or Plasma LIPID PANEL, FASTING Lab Routine Dilated cardiomyopathy (HCC) ICD (implantable cardioverter-defibrillato r) in place LBBB (left bundle branch block) Expected: 01/16/2025, Expires: 04/17/2025 [facility] Comment on above: Expected: 01/16/2025, Expires: Start: 01-16-2025 End: 04-17-2025 Thyrotropin [Units/volume] in Serum or Plasma THYROID STIMULATING HORMONE Lab Routine Dilated cardiomyopathy (HCC) ICD (implantable cardioverter-defibrillato r) in place LBBB (left bundle branch block) Expected: 01/16/2025, Expires: 04/17/2025 [facility] Comment on above: Expected: 01/16/2025, Expires: Start: 01-16-2025 End: 01-16-2025 Patient encounter procedure 01/16/2025 11:40 AM EDT Office Visit [facility] [address] [place], [place] [phone] Tomasz Louis MD [address] [place] [address] Discuss echo results. OK per dr. louis [facility] Comment on above: Discuss echo results. [place] per dr. louis Start: 01-11-2025 End: 01-11-2025 ambulatory 01/11/2025 7:45 AM EDT OT/PT/Speech Visit [facility] [address] [facility] [place] [address] Sharla Canales, PT, DPT [address] [place] [address] $35 8vis end 03/31 [facility] Comment on above: $35 8vis end 03/31 Start: 01-08-2025 End: 02-08-2025 Echocardiography ECHO Cardiology Routine Dilated cardiomyopathy (HCC) Primary hypertension Mixed hyperlipidemia Expected: 01/08/2025 (Approximate), Expires: 02/08/2025 [facility] Comment on above: Expected: 01/08/2025 (Approximate), Expi res: 02/08/2025 Start: 01-08-2025 End: 01-08-2025 Patient encounter procedure 01/08/2025 8:00 AM EDT Appointment [facility] [address] [place] [address] [facility]CHO [facility] Comment on above: ECHO Start: 12-08-2024 End: 12-08-2024 Patient encounter procedure 12/08/2024 2:00 PM EST Procedure [facility] [address] [place] [address] ICD/Rah [facility] Comment on above: ICD/Rah Start: 10-18-2024 Advance Directive Discussion Advance Directive Discussion [facility] Start: 10-18-2024 Medicare Advantage Annual Wellness Visit Medicare Advantage Annual Wellness Visit [facility] Start: 09-20-2024 BP Controlled (<130/80) BP Controlled (<130/80) [facility] Start: 09-05-2024 End: 09-05-2024 Patient encounter procedure [facility] Comment on above: crtd/bsci/ii 3 mon hosp f/u ok pe r eo kmr Start: 06-19-2024 DIABETES SCREEN DIABETES SCREEN [facility] Start: 06-18-2024 Covid-19 Vaccine ( season) Covid-19 Vaccine ( season) [facility] Start: 06-18-2024 Influenza vaccination [facility] Start: 05-30-2024 End: 05-30-2024 Admission to same day surgery center 05/30/2024 9:00 AM EDT - 05/30/2024 11:40 AM EDT [facility] [address] [place] [address] Pat Monreal MD [address] [place] [address] (Fax) REMOVAL AND REPLACEMENT IMPLANTABLE DEFIBRILLATOR PULSE GENERATOR MULTI LEAD SYSTEM [facility] Comment on above: REMOVAL AND REPLACEMENT IMPLANTABLE DEFI BRILLATOR PULSE GENERATOR MULTI LEAD SYSTEM Start: 05-30-2024 End: 05-30-2024 Rmvl impltbl dfb pls gen w/rplcmt pls gen manufacturing lead ld REMOVAL AND REPLACEMENT IMPLANTABLE DEFIBRILLATOR PULSE GENERATOR MULTI LEAD SYSTEM Biventricular implantable cardioverter-defibrillato r (ICD) at end of device life 05/30/2024 9:00 AM EDT [facility] Start: 05-30-2024 Subsequent hospital visit by physician [facility] Comment on above: Biventricular implantable cardioverter-d efibrillator (ICD) at end of device life [Z45.02] Start: 05-11-2024 End: 05-11-2024 Patient encounter procedure 05/11/2024 11:20 AM EDT Office Visit [facility] [address] [place] [address] Pat Monreal MD [address] [place] [id number] (Fax) discuss gen change EKG/eo TONNY 04/22 [facility] Comment on above: discuss gen change EKG/eo TONNY 04/22 Start: 2024 Advance Directive Discussion Advance Directive Discussion [facility] Start: 04-28-2024 End: 04-28-2024 Patient encounter procedure 04/28/2024 8:00 AM EDT Procedure [facility] [address] [place] [address] [facility] Comment on above: PM/Rah Start: 04-21-2024 End: 04-21-2024 Patient encounter procedure 04/21/2024 3:30 PM EDT Office Visit Urology [address] [place] [address] Jim Sherman APRN.TECHNICAL SERVICES REPRESENTATIVE, DNP [address] [facility] [place] [address] 3 mo f/u Jim Sherman CNP, in Urology, BPH, Erectile Dysfunction. Urology Comment on above: 3 mo f/u Jim Sherman CNP, in Urology, B PH, Erectile Dysfunction. Start: 02-21-2024 End: 02-21-2024 Patient encounter procedure 02/21/2024 4:15 PM EDT Office Visit [facility] [address] [facility], [facility] [address] [place] [address] Elvin Reynoso MD [address] [facility] [address] [place] [id number] 2MOS FOLLOW-UP [facility] Comment on above: 2MOS FOLLOW-UP Start: 02-09-2024 End: 05-10-2024 Basic metabolic 2000 panel - Serum or Plasma BASIC METABOLIC PANEL Lab Routine Dilated cardiomyopathy (HCC) Primary hypertension Mixed hyperlipidemia Expected: 02/09/2024, Expires: 05/10/2024 [facility] Comment on above: Expected: 02/09/2024, Expires: Start: 02-09-2024 End: 05-10-2024 CBC panel - Blood by Automated count COMPLETE BLOOD COUNT Lab Routine Dilated cardiomyopathy (HCC) Primary hypertension Mixed hyperlipidemia Expected: 02/09/2024, Expires: 05/10/2024 [facility] Comment on above: Expected: 02/09/2024, Expires: Start: 02-09-2024 End: 05-10-2024 Lipid 1996 panel - Serum or Plasma LIPID PANEL BASIC Lab Routine Dilated cardiomyopathy (HCC) Primary hypertension Mixed hyperlipidemia Expected: 02/09/2024, Expires: 05/10/2024 [facility] Work Phone: Comment on above: Expected: 02/09/2024, Expires: 4 Start: 11-27-2023 End: 02-26-2024 PSA/PROSTSPECAG SCRN PSA/PROSTSPECAG SCRN Lab Routine Benign prostatic hyperplasia with urinary frequency Prostate cancer screening Expected: 11/27/2023, Expires: 02/26/2024 [facility] Work Phone: Comment on above: Expected: 11/27/2023, Expires: 4 Start: 10-18-2023 Behavioral Health Screening Behavioral Health Screening [facility] Start: 10-18-2023 Depression Assessment Depression Assessment [facility] Start: 06-18-2023 Covid-19 Vaccine () Covid-19 Vaccine () [facility] Start: 06-18-2023 Influenza vaccination [facility] Start: 01-30-2023 DIABETES SCREEN DIABETES SCREEN [facility] Start: 11-19-2022 End: 01-19-2023 CBC W Auto Differential panel - Blood CBC + DIFF Lab Routine Chronic systolic CHF (congestive heart failure) ([facility]) Expected: 11/19/2022, Expires: 01/19/2023 [facility] Work Phone: Comment on above: Expected: 11/19/2022, Expires: 3 Start: 11-19-2022 End: 01-19-2023 Comprehensive metabolic 2000 panel - Serum or Plasma COMP METABOLIC PANEL Lab Routine Chronic systolic CHF (congestive heart failure) ([facility]) Expected: 11/19/2022, Expires: 01/19/2023 [facility] Work Phone: Comment on above: Expected: 11/19/2022, Expires: 3 Start: 11-19-2022 End: 01-19-2023 Lipid 1996 panel - Serum or Plasma LIPID PANEL BASIC Lab Routine Chronic systolic CHF (congestive heart failure) ([facility]) Expected: 11/19/2022, Expires: 01/19/2023 [facility] Work Phone: Comment on above: Expected: 11/19/2022, Expires: 3 Start: 11-19-2022 End: 01-19-2023 Natriuretic peptide.B prohormone N-Terminal [Mass/volume] in Serum or Plasma NT PRO BNP Lab Routine Chronic systolic CHF (congestive heart failure) (HCC) Expected: 11/19/2022, Expires: 01/19/2023 [facility] Work Phone: Comment on above: Expected: 11/19/2022, Expires: 3 Start: 11-19-2022 End: 01-19-2023 Thyrotropin [Units/volume] in Serum or Plasma TSH BLD Lab Routine Chronic systolic CHF (congestive heart failure) (HCC) Expected: 11/19/2022, Expires: 01/19/2023 [facility] Work Phone: Comment on above: Expected: 11/19/2022, Expires: 3 Start: 10-18-2022 DEPRESSION ASSESSMENT DEPRESSION ASSESSMENT [facility] Start: 08-11-2022 ANNUAL PCP TEAM CHRONIC DISEASE VISIT ANNUAL PCP TEAM CHRONIC DISEASE VISIT [facility] Start: 06-19-2022 Hepatitis B surface antibody level LDL CHOLESTEROL [facility] Start: 06-18-2022 Influenza vaccination [facility] Start: 04-15-2022 End: 03-11-2023 COLONOSCOPY DIAGNOSTIC COLONOSCOPY DIAGNOSTIC Endoscopy Routine Rectal bleeding History of colonic polyps Expected: 04/15/2022, Expires: 03/11/2023 [facility] Work Phone: Comment on above: Expected: 04/15/2022, Expires: 3 Start: 04-15-2022 End: 03-11-2023 EGD DIAGNOSTIC EGD DIAGNOSTIC Endoscopy Routine Gastroesophageal reflux disease without esophagitis Expected: 04/15/2022, Expires: 03/11/2023 [facility] Work Phone: Comment on above: Expected: 04/15/2022, Expires: 3 Start: 02-08-2022 LIPID SCREEN LIPID SCREEN [facility] Start: 02-08-2022 PROSTATE CANCER SCREENING DISCUSSION PROSTATE CANCER SCREENING DISCUSSION [facility] Start: 02-08-2022 Prostate specific antigen measurement Prostate Cancer Screening Discussion [facility] Start: 10-18-2021 DEPRESSION ASSESSMENT DEPRESSION ASSESSMENT [facility] Start: 08-26-2021 ANNUAL PCP TEAM CHRONIC DISEASE VISIT ANNUAL PCP TEAM CHRONIC DISEASE VISIT [facility] Start: 08-26-2021 SHINGRIX VACCINE (1 of 2) SHINGRIX VACCINE (1 of 2) [facility] Comment on above: Postponed from 2009 (Declined at t his time) Start: 06-24-2021 End: 06-17-2022 Fibrin D-dimer FEU [Mass/volume] in Platelet poor plasma D-DIMER Lab Routine MARTINEZ (dyspnea on exertion) Expected: 06/24/2021 (Approximate), Expires: 06/17/2022 [facility] Comment on above: Expected: 06/24/2021 (Approximate), Expi res: 06/17/2022 Start: 06-18-2021 Influenza vaccination [facility] Start: 06-13-2021 End: 07-12-2022 NM CARDIAC PERF STRESS/PHARM NM CARDIAC PERF STRESS/PHARM Radiology Routine Shortness of breath Expected: 06/13/2021 (Approximate), Expires: 07/12/2022 [facility] Comment on above: Expected: 06/13/2021 (Approximate), Expi res: 07/12/2022 Start: 05-15-2021 End: 05-01-2022 Echocardiography ECHO Cardiology Routine Palpitations Chronic systolic CHF (congestive heart failure) (HCC) Cardiomyopathy, nonischemic (HCC) Expected: 05/15/2021 (Approximate), Expires: 05/01/2022 [facility] Comment on above: Expected: 05/15/2021 (Approximate), Expi res: 05/01/2022 Start: 05-15-2021 End: 05-31-2022 NM CARDIAC PERF STRESS/PHARM NM CARDIAC PERF STRESS/PHARM Radiology Routine Palpitations Chronic systolic CHF (congestive heart failure) (HCC) Cardiomyopathy, nonischemic (HCC) Precordial pain Expected: 05/15/2021 (Approximate), Expires: 05/31/2022 [facility] Comment on above: Expected: 05/15/2021 (Approximate), Expi res: 05/31/2022 Start: 05-01-2021 End: 05-01-2022 CBC panel - Blood by Automated count CBC Lab Routine Palpitations Chronic systolic CHF (congestive heart failure) (HCC) Cardiomyopathy, nonischemic (HCC) Expected: 05/01/2021, Expires: 05/01/2022 [facility] Comment on above: Expected: 05/01/2021, Expires: 2 Start: 05-01-2021 End: 05-01-2022 Comprehensive metabolic 2000 panel - Serum or Plasma COMP METABOLIC PANEL Lab Routine Palpitations Chronic systolic CHF (congestive heart failure) (HCC) Cardiomyopathy, nonischemic (HCC) Expected: 05/01/2021, Expires: 05/01/2022 [facility] Comment on above: Expected: 05/01/2021, Expires: 2 Start: 05-01-2021 End: 05-01-2022 LIPID PANEL BASIC LIPID PANEL BASIC Lab Routine Palpitations Chronic systolic CHF (congestive heart failure) (HCC) Cardiomyopathy, nonischemic (HCC) Expected: 05/01/2021, Expires: 05/01/2022 [facility] Comment on above: Expected: 05/01/2021, Expires: 2 Start: 05-01-2021 End: 05-01-2022 Natriuretic peptide.B prohormone N-Terminal [Mass/volume] in Serum or Plasma NT PRO BNP Lab Routine Palpitations Chronic systolic CHF (congestive heart failure) (HCC) Cardiomyopathy, nonischemic (HCC) Expected: 05/01/2021, Expires: 05/01/2022 [facility] Comment on above: Expected: 05/01/2021, Expires: 2 Start: 05-01-2021 End: 05-01-2022 Thyrotropin [Units/volume] in Serum or Plasma TSH BLD Lab Routine Palpitations Chronic systolic CHF (congestive heart failure) (HCC) Cardiomyopathy, nonischemic (HCC) Expected: 05/01/2021, Expires: 05/01/2022 [facility] Comment on above: Expected: 05/01/2021, Expires: 2 Start: 04-16-2021 Influenza vaccination INFLUENZA (#1) [facility] Comment on above: Postponed from 06/18/2020 (Declined at t his time) Start: 02-06-2021 ANNUAL PCP TEAM CHRONIC DISEASE VISIT ANNUAL PCP TEAM CHRONIC DISEASE VISIT [facility] Start: 01-08-2021 Adult depression screening assessment DEPRESSION SCREENING [facility] Start: 06-18-2020 Influenza vaccination INFLUENZA (#1) [facility] Start: 12-25-2019 Colonoscopy COLONOSCOPY [facility] Start: 2019 RSV Vaccine (1 - 1-dose 60+ series) RSV Vaccine (1 - 1-dose 60+ series) [facility] Start: 2019 RSV Vaccine (1 - Risk 60-74 years 1-dose series) RSV Vaccine (1 - Risk 60-74 years 1-dose series) [facility] Start: 02-08-2018 Hepatitis B surface antibody level LDL CHOLESTEROL [facility] Start: 2009 Screening for malignant neoplasm of colon [facility] Start: 2009 SHINGRIX VACCINE (1 of 2) SHINGRIX VACCINE (1 of 2) [facility] Start: 2004 COLOGUARD (FIT-DNA) COLOGUARD (FIT-DNA) [facility] Start: [address] COLONOGRAPHY [facility] Start: 2004 FECAL OCCULT BLOOD FECAL OCCULT BLOOD [facility] Start: 2004 Screening for malignant neoplasm of colon [facility] Start: 2004 SIGMOIDOSCOPY SIGMOIDOSCOPY [facility] Start: 1978 ONE PNEUMOVAX PRIOR TO AGE 65 ONE PNEUMOVAX PRIOR TO AGE 65 [facility] Start: 1978 Pneumococcal Vaccine: 50+ (1 of 2 - PCV) Pneumococcal Vaccine: 50+ (1 of 2 - PCV) [facility] Start: 1978 Urine microalbumin profile DTAP,TDAP,TD (1 - Tdap) [facility] Start: 1977 ANNUAL PCP TEAM CHRONIC DISEASE VISIT ANNUAL PCP TEAM CHRONIC DISEASE VISIT [facility] Start: 1977 Anxiety Screening Anxiety Screening [facility] Start: 1977 BP Controlled (<130/80) BP Controlled (<130/80) [facility] in Start: 1977 Depression Screening Depression Screening [facility] Start: 1977 HIV SCREENING HIV SCREENING [facility] Start: 1971 COVID-19 VACCINE (1) COVID-19 VACCINE (1) [facility] Start: 1965 PNEUMOCOCCAL (1 - PCV) PNEUMOCOCCAL (1 - PCV) [facility] ic Start: 1965 Pneumococcal vaccination [facility] Start: 1965 Pneumococcal Vaccine: 65+ (1 of 2 - PCV) Pneumococcal Vaccine: 65+ (1 of 2 - PCV) [facility] Start: 1964 COVID-19 VACCINE (#1) COVID-19 VACCINE (#1) [facility] Start: 1964 COVID-19 VACCINE (1) COVID-19 VACCINE (1) [facility] Start: 1959 COVID-19 VACCINE (#1) COVID-19 VACCINE (#1) [facility] Start: 1959 Abdominal aortic aneurysm screening Abdominal Aortic Aneurysm Screening [facility] CARDIAC DATA AND REPORT CARDIAC DATA AND REPORT Cardiology Routine 09/02/2020 9:17 AM EST [facility] End: 08-26-2021 Comprehensive metabolic 2000 panel COMP METABOLIC PANEL Lab Routine Screening for lipid disorders Screening for diabetes mellitus 1 Occurrences starting 08/26/2020 until 08/26/2021 [facility] Comment on above: 1 Occurrences starting 08/26/2020 until 08/26/2021 ECG B/O W INTERP (ME D OFFICE) ECG B/O W INTERP (MED OFFICE) ECG Routine Dilated cardiomyopathy (HCC) Ordered: 05/11/2024 [facility] Work Phone: Comment on above: Ordered: 05/11/2024 End: 09-20-2024 EGD DIAGNOSTIC EGD DIAGNOSTIC Endoscopy Routine Gastroesophageal reflux disease without esophagitis 1 Occurrences starting 09/20/2023 until 09/20/2024 [facility] Work Phone: Comment on above: 1 Occurrences starting 09/20/2023 until 09/20/2024 H&P for surgery H&P FOR SURGERY Procedures Routine Gastroesophageal reflux disease without esophagitis Ordered: 03/11/2022 [facility] Work Phone: Comment on above: Ordered: 03/11/2022 Injection single/manufacturing lead trigger point 3/> muscles TRIGGER POINT INJECTION MULTI 3+ MUSCLE GRP Procedures Routine Myofascial pain Ordered: 01/16/2025 [facility] Work Phone: Comment on above: Ordered: 01/16/2025 End: 08-26-2021 LIPID PANEL, NONFASTING LIPID PANEL, NONFASTING Lab Routine Screening for lipid disorders Screening for diabetes mellitus 1 Occurrences starting 08/26/2020 until 08/26/2021 [facility] Comment on above: 1 Occurrences starting 08/26/2020 until 08/26/2021 Daria post-voiding residual urine&/bladder cap US MSR POST-VOID RESID URINE Procedures Routine Benign prostatic hyperplasia with urinary frequency Ordered: 01/07/2024 [facility] Work Phone: Comment on above: Ordered: 01/07/2024 POST VOID RESIDUAL POST VOID RES IDUAL Procedures Routine Benign prostatic hyperplasia with urinary frequency Screening for genitourinary condition Ordered: 11/26/2023 [facility] Work Phone: Comment on above: Ordered: 11/26/2023 Rmvl impltbl dfb pls gen w/rplcmt pls gen manufacturing lead ld REMOVAL AND REPLACEMENT IMPLANTABLE DEFIBRILLATOR PULSE GENERATOR MULTI LEAD SYSTEM Biventricular implantable cardioverter-defibrillato r (ICD) at end of device life [facility] End: 09-20-2024 Screening colonoscopy COLONOSCOPY SCREENING Endoscopy Routine Rectal bleeding 1 Occurrences starting 09/20/2023 until 09/20/2024 [facility] Work Phone: Comment on above: 1 Occurrences starting 09/20/2023 until 09/20/2024 SURGICAL PATHOLOGY [facility] Work Phone: Comment on above: Release Upon Ordering for 1 Occurrences starting 11/19/2023 End: 12-29-2024 XR Cervical spine AP and Oblique and (Lateral W flexion and W extension) [facility] Work Phone: Comment on above: 1 Occurrences starting 12/29/2024 until 12/29/2024 End: 03-03-2025 XR Chest PA and Lateral [facility] Work Phone: Comment on above: 1 Occurrences starting 03/03/2025 until 03/03/2025 [facility] Immunizations Immunization Date Immunization Notes Care Provider Funmilayo sanjay 09-05-2018 influenza virus vacc ine, unspecified formulation Elvin Reynoso MD Work Phone: [facility] Payers Date Payer Category Payer Medicare (Managed Care) CRISTY ROBERT [id number] 2022 Medicare [id number] 2015 Medicare [id number] 2015 Medicare [id number] 2012 Unknown [id number] 1959 Self-pay 1959 Unknown [id number] 1959 Unknown [id number] 1959 Unknown [id number] 1959 Unknown [id number] Medicare [id number] Unknown [id number] Unknown [id number] Unknown [id number] Unknown [id number] Unknown [id number] Social History Date Type Detail Facility Start: 02-07-2020 End: 05-23-2025 Tobacco smoking status NHIS Former smoker [facility] Work Phone: Start: 12-05-1996 End: 12-05-2006 History of tobacco use Current smoker [facility] Start: 02-07-2020 End: 07-20-2023 Cigarettes smoked current (pack per day) - Reported [facility] Start: 02-07-2020 End: 03-14-2025 Tobacco use and exposure Never used [facility] Start: 02-07-2020 End: 03-14-2025 Alcohol intake Current non-drinker of alcohol (finding) [facility] Start: 12-05-2012 Alcohol Comment heavy alcohol consumption and quit in 1987 [facility] Start: 1960 Sex Assigned At Male C [facility] Start: 01-03-2022 End: 02-25-2022 Exposure to SARS-CoV-2 (event) Not sure [facility] Start: 12-05-1996 End: 12-05-2006 History of tobacco use Cigarette Smoker [facility] Start: 11-19-2022 End: 07-20-2023 Tobacco use panel [facility] Adult Depression Screening Assessment 0 [facility] Start: 05-30-2018 Gender identity Identifies as male gender (finding) [facility] Start: 04-26-2025 Tobacco smoking stat us NDIS Never smoked tobacco (finding) [facility] Medical Equipment Procedure Code Equipment Code Equipment Original Text Equipment Identifier Dates [id number] 1 10/2015 [id number] Start: 02-26-2016 Comment on above: Description: Medtron ic Amplia MRI Quad ICD Lv Lead-02/26/2016 [id number] Start: 02-26-2016 Comment on above: Description: LV Medt kerwin [id number] LV lead Ra Lead-02/26/2016 [id number] Start: 02-26-2016 Comment on above: Description: Medtron ic [id number] Capsurefix Novus RA Lead Rv Lead-02/26/2016 [id number] Start: 02-26-2016 Comment on above: Description: Medtron ic [id number] RV Lead [id number] Start: 05-30-2024 Goals Date Patient Goal Desired Activity /State Personal health goal Functional Status Date Assessment Result Facility 05-30-2018 Are you deaf, or do you have serious difficulty hearing No 05/30/2018 1:30 PM EDT Kenn Sauceda, DO No [facility] 05-30-2018 Are you blind, or do you have serious difficulty seeing, even when wearing glasses No 05/30/2018 1:30 PM EDT Kenn Sauceda, DO No [facility] 05-30-2018 Do you have serious difficulty walking or climbing stairs No 05/30/2018 1:30 PM EDT Kenn Sauceda, DO No [facility] 05-30-2018 Do you have difficul ty dressing or bathing No 05/30/2018 1:30 PM EDT Kenn Sauceda, DO No [facility] 05-30-2018 Because of a physica l, mental, or emotional condition, do you have difficulty doing errands alone such as visiting a physician's office or shopping No 05/30/2018 1:30 PM EDT Kenn Sauceda, DO No [facility] Mental Status Date Assessment Result Facility 05-25-2025 Cognitive function Voice/Name [facility] Work Phone: 04-26-2025 Cognitive function Level Of Cons ciousness Awake;Alert;Appropriate;Fol lows Commands [facility] Work Phone: 05-30-2018 Because of a physica l, mental, or emotional condition, do you have serious difficulty concentrating, remembering, or making decisions No 05/30/2018 1:30 PM EDT Kenn Sauceda, DO No [facility] Clinical Notes 09-02-2020 to 05-25-2025 Note Date & Type Note Facility 05-25-2025 Procedure note [facility] 05-25-2025 Procedure note [facility] 05-25-2025 Consult note [facility] 05-25-2025 Consult note [facility] 05-25-2025 History and physi francesco note [facility] 05-25-2025 Note [facility] Medical Records Department [address] [place] [address] History Physical Exam 05/25/25 0843 MR#: [id number] Acct: [id number] Name: VINCENT MADDEN Rep #: [id number] : 1960 65 From: Aneudy Kenyon MD PCP: Care Physician,No Primary Status:[facility] Location: [place] [address] History and Physical Date of Admission: 05/25/25 Intake Vital Signs 04/26/2514:41 04/30/2508:43 Height 5 ft 9 in 5 ft 9 in Weight: 201 lb BMI 29.7 BP 111/78 Blood Pressure Location Rt brachial Position Sitting Respiration 16 Intake Visit Reasons: H PYLORI TEST Chief Complaint: EGD Materials And Processes Manager Required: No Is patient in pain?: Yes (epigastric area ) Pain scale (1-10): 3 Allergies No Known Allergies Allergy (Verified 04/30/25 08:44) Medications ???Medication ???Instructions ???Recorded ???Confirmed ???Type ondansetron 4 mg disintegrating 4 mg PO Q6H PRN nausea and 04/26/25 Rx tablet vomiting #20 tabs aspirin 81 mg tablet 81 mg PO QDAY 04/30/25 04/30/25 History atorvastatin 20 mg tablet 20 mg PO QDAY 04/30/25 04/30/25 History carvedilol 12.5 mg tablet 12.5 mg PO BID 04/30/25 04/30/25 History esomeprazole magnesium 40 mg 40 mg PO QDAY 04/30/25 04/30/25 History capsule,delayed release furosemide 40 mg tablet 40 mg PO QDAY 04/30/25 04/30/25 History lisinopril 20 mg tablet 20 mg PO BID 04/30/25 04/30/25 History spironolactone 25 mg tablet mg PO 04/30/25 04/30/25 History tadalafil 20 mg tablet (Cialis) 20 mg PO QDAY PRN 04/30/25 04/30/25 History Have you fallen in the past year?: No PFSH Medical History H pylori ulcer Rectal polyp Rectal bleeding GERD (gastroesophageal reflux disease) HTN (hypertension) Hypertriglyceridemia Hernia CAD (coronary atherosclerotic disease) Palpitation Cardiomyopathy LBBB (left bundle branch block) Pacemaker Surgical History S/P cardiac pacemaker procedure S/P carpal tunnel release Previous back surgery Social History (Updated 04/30/25 @ 08:43 by Amber Akers) Smoking Status: Former smoker alcohol intake: never HPI HPI HPI: Patient is a 64-year-old male here with epigastric pain. The patient reports that he has been having weight gain despite not eating. He has a history of H. pylori. Patient feels like his H. pylori is back again. Patient had a recent EGD and colonoscopy in November. He reports that he was feeling a lot of bloating after eating and having a lot of gas. He is already on Nexium ROS General General: Yes weight change and fatigue; No appetite, colon cancer, breast cancer or weakness HEENT HEENT: Yes difficulty swallowing; No eye injury, eye surgery, swollen glands or hoarseness Endo Endocrine: No thyroid disease, diabetes mellitus, thyroid cancer, Hair loss, heat intolerance or cold intolerance Skin Skin: No rash or changing moles Breast Breast: No left breast lump, right breast lump, nipple discharge, breast pain, abnormal mammogram, abnormal US or breast enlargement Musc Musculoskeletal: Yes back problems and arthritis; No rheumatoid arthritis, gout or joint pain Cardio Cardiovascular: Yes pacemaker, heart disease, atrial fibrillation and high blood pressure; No murmur, heart attack, heart stent, palpitations, shortness of breath with exertion or chest pain Psych Psychiatric: No depression, anxiety or hearing voices Resp Respiratory: Yes shortness of breath, Yes sleep apnea, Yes cough, No COPD, No asthma, No emphysema and No wheezing Gastro Gastrointestinal: Yes abdominal pain, No nausea or vomiting, Yes diarrhea, Yes constipation, Yes blood in stool, Yes acid reflux, No hemorrhoids, No ulcers, No gallbladder problem and No black,tarry stools Rigoberto Hematologic: No blood thinners, No blood disorders, No bleeding, No anemia and No blood clots Neuro Neurologic: No system reviewed and no additional complaints, except as documented, No as per HPI, No abnormal gait, No abnormal hearing, No abnormal movements, No abnormal speech, No behavioral changes, No burning sensations, No confusion, No convulsions, No disequilibrium, No dizziness, No localized weakness, No frequent falls, No headache(s), No lack of coordination, No loss of vision, No memory loss, No numbness, No other visual disturbances, No radicular pain, No restless legs, No sensory deficit, No syncope, No tingling, No tremor(s), No weakness and No other Exam Const General: cooperative Orientation: alert and oriented x3 HENMT Head: normal to inspection Neck Neck: normal visual inspection and full ROM Chest Chest palpation inspection: normal inspection of the chest Resp Effort Inspection: normal respiratory effort Auscultation: clear to auscultation bilaterally Cardio Rat (more content not included)... [facility] 2025 Consult note Note Date/Time May 25, 2025 9:1 0am [facility] Medical Records Department [address] [place] [address] Anesthesia Postop Eval I 05/25/25909 MR#: [id number] Acct: [id number] Name: VINCENT MADDEN Rep #:[id number] : 1960 65 From: Garo CLINE PCP: Care Physician,No Primary Status :REG [facility] Y Race: C Location: [place] [address] Anesthesia: Postop Eval I Current Vital Signs Temperature: 98 F Pulse Rate: 71 Blood Pressure: 102/70 Respiratory Rate: 14 Pulse Ox: 92 Oxygen Delivery Method: Room Air Assessment Airway patent: Yes Spontaneous unlabored respirations: Yes Mental status: Awake and Calm nausea: No Vomiting: No Anesthesia Complication: No Fluid Hydration Crystalloid volume administer (ml): 300 Total IV fluid infused: 300 Progress Note Anesthesia document: Postop Eval 1 completed: Yes 05/25/25909 <Electronically signed by Garo Weeks CRNA> Date _ Garo Olmedo Signature: Date CC: ~ Signed [facility] Work Phone: [phone]) 716-773407-15-2025 Telephone encounter Note* Telephone Encounter - Dominic Bledsoe RN - 05/01/2025 4:35 PM EDT Call returned to Himanshu. Himanshu states that her father has been taking extra Lasix but has not seen increase in urination. Patient was in ED with complaints of Shortness of Breath. CXR and BNP did not indicate fluid. Weight stable at 195 lbs. Discussed that there are many causes of Shortness of Breath and that taking additional Lasix without change indicates that it may not be fluid. Himanshu agrees. Patient is scheduled to have abdominal testing and scope. Himanshu states she believes that his abdominal discomfort may be cause. Patient recently canceled a visit scheduled for today. Offered to reschedule this visit. Himanshu declined at this time but will call back if symptoms continue. [facility]07-15-2025 Miscellaneous Notes* Telephone Encounter - Dominic Bledsoe RN - 05/01/2025 4:35 PM EDT Call returned to Himanshu. Himanshu states that her father has been taking extra Lasix but has not seen increase in urination. Patient was in ED with complaints of Shortness of Breath. CXR and BNP did not indicate fluid. Weight stable at 195 lbs. Discussed that there are many causes of Shortness of Breath and that taking additional Lasix without change indicates that it may not be fluid. Himanshu agrees. Patient is scheduled to have abdominal testing and scope. Himanshu states she believes that his abdominal discomfort may be cause. Patient recently canceled a visit scheduled for today. Offered to reschedule this visit. Himanshu declined at this time but will call back if symptoms continue. * Telephone Encounter - Gely Awad - 05/01/2025 11:08 AM EDT Patient's daughter, Himanshu, reached out to the [facility] with concern for patient. Patient has gained 20#'s in a month. Patient went to ED for 8 hours, had blood work and EKG and never saw a doctor and left. Then went to [facility] had blood work and was told everything was fine. However, she did state at some point he did receive liquid medication. He is now home with swelling in stomach and legs. Patient took 2 40 mg Lasix tabs today at 6:00 am and has not urinated. He usually pees within 10-15 minutes after taking just 40 mg. She is concerned that he has not had a reaction to doubling up on Lasix. [phone] [facility] Telephone encounter Note * Telephone Encounter - Gely Awad - 05/01/2025 11:08 AM EDT Patient's daughter, Himanshu, reached out to the [facility] with concern for patient. Patient has gained 20#'s in a month. Patient went to ED for 8 hours, had blood work and EKG and never saw a doctor and left. Then went to [facility] had blood work and was told everything was fine. However, she did state at some point he did receive liquid medication. He is now home with swelling in stomach and legs. Patient took 2 40 mg Lasix tabs today at 6:00 am and has not urinated. He usually pees within 10-15 minutes after taking just 40 mg. She is concerned that he has not had a reaction to doubling up on Lasix. [phone] [facility]07-14-2025 Evaluation note* Diagnosis Onset Date Resolution Status Admit Date Abdominal pain inactive April 30, 2025 8:21am History of Helicobacter pylo ri infection inactive April 30, 2025 8:21am [facility] Work Phone: [phone]) 827-445807-10-2025 Discharge summary [facility] Medical Records Department [address] [place] [address] Emergency Department Summary 04/26/25 MR#: [id number] Acct: [id number] Name: VINCENT MADDEN Rep #:[id number] : 1960 64 From: Rigo Haile DO PCP: Care Physician,No Primary Status :REG ER Location: ED HPI History of Present Illness Chief Complaint: General Illness Narrative Narrative: Patient is a 64-year-old male with past medical history of CAD, CHF, recent pacemaker placement in May, cardiomyopathy, hypertension who presents to the emergency department with a chief complaintof generalized weakness, shortness of breath with exertion, abdominal pain and diarrhea. Patient states that he has not been feeling well for the last several days and notes that he is gettingworsening shortness of breath with exertion. Patient family bedside states theywanted him further evaluatedsince he was seem to be worsening. [facility]SH [facility] Medical History H pylori ulcer Rectal polyp Rectal bleeding GERD (gastroesophageal reflux disease) HTN (hypertension) Hypertriglyceridemia Hernia CAD (coronary atherosclerotic disease) Palpitation Cardiomyopathy LBBB (left bundle branch block) Pacemaker Home Medications ?Medication ?Instructions ?Recorded ?Last Taken ?Type ondansetron 4 mg disintegrating 4 mg PO Q6H PRN nausea and 04/26/25 Unknown Rx tablet vomiting #20 tabs Allergy/AdvReac Type Severity Reaction Status Date / Time No Known Allergies Allergy Verified 04/26/25 14:43 Surgical History Previous back surgery Social History Smoking Status: Never smoker ROS ROS ED ROS Narrative Constitutional: Denies any fevers, chills, headaches Eyes: Denies double vision Cardiovascular: Denies chest pain Respiratory: Complains of shortness of breath as noted above as well as a cough Abdomen: Complains of abdominal pain nausea vomiting as noted above as well as diarrhea denies darktarry stools : Denies any urinary symptoms Neurological: Denies numbness, wheeze, tingling Musculoskeletal: Denies back pain Skin: Denies any rashes or lesions EXAM Physical Exam Narrative Exam Narrative: General: Patient was lying in bed rest comfortably did not appear to be acute distress Head: Atraumatic, normocephalic Eyes: PERRL bilaterally, EOMI by, no conjunctival injection noted Neck: Soft, supple, trachea midline Cardiovascular: Regular rate and rhythm no murmurs gallops rubs noted Respiratory: Clear to auscultation bilaterally Abdomen: Patient does have epigastric tenderness on exam no rebound or guarding on exam Extremities: +5/5 strength noted in the bilateral upper and lower extremities Neurological: Patient follow commands knew that he was at [facility] [id number] Skin: Warm, dry, intact no rashes lesions noted Const Vital Signs: 04/26/25 14:41 04/26/25 15:50 04/26/25 16:20 Temperature 97.4 F L Temperature Source Oral Pulse Rate 77 Respiratory Rate 16 Respiratory Effort Short of Breath Blood Pressure 117/70 Blood Pressure Mean 85 Pulse Ox 100 Oxygen Delivery Method Room Air Room Air 04/26/25 16:40 04/26/25 18:00 04/26/25 20:00 Temperature Temperature Source Pulse Rate 67 63 64 Respiratory Rate 18 16 19 H Respiratory Effort Blood Pressure 119/69 Blood Pressure Mean 85 Pulse Ox 99 99 100 Oxygen Delivery Method Room Air Room Air [facility] MDM Narrative Medical decision making narrative: Patient is a 64-year-old male who presented to the emerged part with a chief complaint of dyspnea on exertion, abdominal pain nausea vomiting. On the differential diagnosis includes but not limited to CHF exacerbation, ACS, pneumonia, pancreatitis, cholecystitis, viral gastroenteritis. Once workup is obtained reviewed he will be reevaluated. Patient be given IV fluids morphine Zofran. Nursing notified me that he did refuse his morphine. Patient's CBC was reviewed and showed no evidence leukocytosis white blood countwas 7.8, he was 12.7, platelet count of 156. Patient's sodium was 135, potassium normal 4.4, creatinine was elevated 1.35, AST and ALT were 27 and 35 respectively. Patient's troponin was 12 with a delta troponin of 11, EKG reviewed showed atrial sensed ventricular paced rhythm with a rate of 60 bpm no Sgarbossa criteria were met. Patient's proBNP normal less than 36, lipase normal at 47, urinalysis reviewed showed no evidence of infection. Patient chest x-ray reviewed by myself by radiology showed mild cardiomegaly with vascular congestion and probable interstitial edema no consolidation or pleural effusion noted. Patient CT abdomen pelvis IV contrast reviewed showed sigmoid colon wall thickening without significant adjacent inflammatory changes equivocal for acute uncomplicated sigmoid diverticulitis patient has no tenderness to palpation in this region therefore have low suspicion for this, borderline gastric wall thickening which may be due to underdistention or gastritis. Patient ambulated here in the emergency department had no tachycardia his oxygenlevel went down to 91% and he felt mildly short of breath. I added on a D- dimerwhich was reviewed and is normal at 0.33. I discussed these results with the patient and his daughter at bedside. With shared decision makingit was decided that we will give him a dose of IV Lasix here in the emergency department and he will double his home Lasix dose. He does have an appointment on Wednesday with the heart failure clinic that he will follow-up with he states. He states that he is currently try to follow-up with Dr. Kenyon in the outpatient setting for repeat endoscopies as [facility] a [facility] Patient was hungry here in the emergency department and he did eat [employer] without any vomiting. Once again the patient with shared decision making would like to go home and hisdaughter at bedsideis agreeable this plan all question concerns answered he is discharged home in stable condition. Lab Data Labs: Laboratory Results - last 24 hr 04/26/25 04/26/25 04/26/25 16:03 16:18 18:40 WBC 7.8 RBC 3.96 L Hgb 12.7 L Hct 36.3 L MCV 91.7 MCH 32.1 H MCHC 35.0 RDW Std Deviation 40.4 RDW Coeff of Roshni 12.0 Plt Count 156 MPV 9.8 Immature Gran % (Auto) 0.400 Neut % (Auto) 58.4 Lymph % (Auto) 27.4 Pershing % (Auto) 9.9 Eos % (Auto) 2.5 Baso % (Auto) 1.4 H Absolute Neuts (auto) 4.5 Absolute Lymphs (auto) 2.12 Nucleated RBC % 0 D-Dimer Quant (PE/DVT) Sodium 135 Potassium 4.4 Chloride 102 Carbon Dioxide 21.8 Anion Gap 12 BUN 27 H Creatinine 1.35 H Estim Creat Clear Calc 60.52 Est GFR (MDRD) Non-Af 58 L BUN/Creatinine Ratio 19.6 Glucose 102 H Calcium 9.5 Total Bilirubin 0.43 AST 27 ALT 35 Alkaline Phosphatase 46 Troponin T High Sens 12 Troponin T Hi Sens 2 Hr 11 NT pro BNP II < 36 Total Protein 7.3 Albumin 4.3 Globulin 3.0 Albumin/Globulin Ratio 1.4 Lipase 47 Urine Color Yellow Urine Clarity Clear Urine pH 6.[address] [place] 1.015 Urine Protein 30 H Urine Glucose (UA) Normal Urine Ketones Negative Urine Occult Blood Negative Urine Nitrite Negative Urine Bilirubin Negative Urine Urobilinogen 1 H Ur Leukocyte Esterase Negative Urine RBC 0-5 SEEN Urine WBC 0-5 SEEN Ur Squamous Epith Cells 0 SEEN Urine Bacteria 0 SEEN Urine Mucus RARE 04/26/25 19:55 WBC RBC Hgb Hct MCV MCH MCHC RDW Std Deviation RDW Coeff of [place] Plt Count MPV Immature Gran % (Auto) Neut % (Auto) Lymph % (Auto) Pershing % (Auto) Eos % (Auto) Baso % (Auto) Absolute Neuts (auto) Absolute Lymphs (auto) Nucleated RBC % D-Dimer Quant (PE/DVT) 0.33 Sodium Potassium Chloride Carbon Dioxide Anion Gap BUN Creatinine Estim Creat Clear Calc Est GFR (MDRD) Non-Af BUN/Creatinine Ratio Glucose Calcium Total Bilirubin AST ALT Alkaline Phosphatase Troponin T High Sens Troponin T Hi Sens 2 Hr NT pro BNP II Total Protein Albumin Globulin Albumin/Globulin Ratio Lipase Urine Color Urine Clarity Urine pH Ur Specific [place] Urine Protein Urine Glucose (UA) Urine Ketones Urine Occult Blood Urine Nitrite Urine Bilirubin Urine Urobilinogen Ur Leukocyte Esterase Urine RBC Urine WBC Ur Squamous Epith Cells Urine Bacteria Urine Mucus Radiography Diagnostic Testing: Clinical Impression(s) from Imaging Studies Chest X-Ray 04/26/25 16:21 IMPRESSION: Mild cardiomegaly with vascular congestion and probable interstitial edema. No focal airspace consolidation, or pleural effusion. Reading Location: [id number] Abdomen/Pelvis CT 04/26/25 17:30 IMPRESSION: Sigmoid colon wall thickening without significant adjacent inflammatory changes equivocal for acuteuncomplicated sigmoid diverticulitis. Borderline gastric wall thickening which may be due to underdistention or gastritis. Reading Location: [place] [address] Discharge Plan Triage Chief Complaint: General Illness ED Provider: Rigo Haile Dx/Rx/DC Orders Clinical Impression: Abdominal pain, History of CHF (congestive heart failure), History of Helicobacter pylori infection Prescriptions: New ondansetron 4 mg tablet,disintegrating 4 mg PO Q6H PRN (Reason: nausea and vomiting) Qty: 20 0RF Primary Care Provider: Care Physician,No Primary Referrals: Care Physician,No Primary [Primary Care Provider] - Aneudy Kenyon MD [Med Staff - Active Staff] - Activity Restrictions/Additional Instructions: Follow-up your appointment on Wednesday with the heart failure team increase your Lasix dose for the next few days. Return with worsening symptoms or any concerns. Use the Zofran as sent to your pharmacy as prescribed for nausea as needed. Print Language: [place] Disposition Disposition: Home, Self Care What to do if you have Problems For any increased pain, shortness of breath, bleeding, nausea or vomiting, chestpain, or any unexpected problems, contact your Primary Care Provider. Call [facility] ([phone]) or report tothe closest Emergency Room. Call 911 if necessary. 04/26/252112 Cosigner Signature (if applicable): CC: No Primary Care Physician ~ Signed [facility]07-10-2025 Radiology Diagnostic study note [facility] Imaging Services [address] [place], [place] [address] Abdomen/Pelvis W IV Cont ONLY MR#: [id number] Acct: [id number] Name: VINCENT MADDEN Rep #: [id number] : 1960 M 64 From: Jacques Medina MD PCP: Care Physician,No Primary Status: REG ER Study:Abdomen/Pelvis W IV Cont ONLY Date of E xam: 04/26/25 Exam# [id number] Ordering Dr: Stacey Haile DO PROCEDURE: ABDOMEN/PELVIS W IV CONT ONLY 04/26/2025 REASON FOR EXAM: EPIGASTRIC PAIN, N/V TECHNIQUE: ABDOMEN/PELVIS W IV CONT ONLY Coronal and Sagittal reconstruction series were provided. CONTRAST: Isovue 370 VOLUME: 92 mL One or more dose reduction techniques were used (e.g., Automated exposure control, adjustment of the mA and/or kV according to patient size, use of iterative reconstruction technique. RADIATION DOSE SUMMARY: CTDlvol: 13.30+ 20.66 mGy DLP: 1157.52 mGycm COMPARISON: None. FINDINGS: The lung bases are clear. Coronary artery calcifications. The peripheral soft tissues are unremarkable. Degenerative changes of the spine. Moderate atherosclerosis. Normal caliber abdominal aorta. No suspicious lymphadenopathy. Hepatic subcentimeter hypodense lesions that are too small to characterize. The gallbladder, pancreas, spleen, adrenals are unremarkable. Symmetric enhancement of the bilateral kidneys. No hydroureteronephrosis. The urinary bladder is unremarkable. Borderlinesigmoid colon wall thickening without adjacent inflammatory changes. Equivocal for acute uncomplicated diverticulitis.Borderline gastric wall thickening which may be due to underdistention or gastritis. CT/Abdomen/Pelvis W IV Cont ONLY IMPRESSION: Sigmoid colon wall thickening without significant adjacent inflammatory changes equivocal for acuteuncomplicated sigmoid diverticulitis. Borderline gastric wall thickening which may be due to underdistention or gastritis. Reading Location: [id number] CC: Dr. Rigo Haile DO; No Primary Care Physician ~ Transportation Planning Engineer: Signed [facility]07-10-2025 Radiology Diagnostic study note [facility] Imaging Services [address] [place] [address] Chest PA and Lateral MR#: [id number] Acct: [id number] Name: VINCENT MADDEN Rep #: [id number] : 1960 M 64 From: Miguel Jackson MD PCP: Care Physician,No Primary Status: REG ER Study:Chest PA and Lateral Date of Exam: 04/26/25 Exam# [id number] Ordering Dr: Stacey Haile DO PROCEDURE: CHEST PA AND LATERAL 04/26/2025 REASON FOR EXAM: SOB TECHNIQUE: CHEST PA AND LATERAL COMPARISON: None. FINDINGS: Devices: Left chest wall multilead ICD, appears appropriately positioned. Lungs/Pleura: Mild pulmonary vascular congestion and evidence of interstitial edema. No pleural effusion. No focal airspace consolidation. No pneumothorax. Heart/Mediastinum: Mild cardiomegaly. Calcification of the aortic arch. Bones/Soft tissues: Mild degenerative changes of the spine and bilateral AC joints. RAD/Chest PA and Lateral IMPRESSION: Mild cardiomegaly with vascular congestion and probable interstitial edema. No focal airspace consolidation, or pleural effusion. Reading Location: [id number] CC: Dr. Rigo Haile DO; No Primary Care Physician ~ Transportation Planning Engineer: Signed [facility]07-10-2025 Discharge summary Author Rigo Haile [facility] Note Date/Time April 26, 2025 9:13 pm [facility] Medical Records Department [address] [place] [address] Emergency Department Summary 04/26/25 MR#: [id number] Acct: [id number] Name: VINCENT MADDEN Rep #:[id number] : 1960 64 From: Rigo Haile DO PCP: Care Physician,No Primary Status :REG ER Location: ED HPI History of Present Illness Chief Complaint: General Illness Narrative Narrative: Patient is a 64-year-old male with past medical history of CAD, CHF, recent pacemaker placement in May, cardiomyopathy, hypertension who presents to the emergency department with a chief complaint of generalized weakness, shortness of breath with exertion, abdominal pain and diarrhea. Patient states that he has not been feeling well for the last several days and notes that he is gettingworsening shortness of breath with exertion. Patient family bedside states theywanted him further evaluated since he was seem to be worsening. [facility] Medical History H pylori ulcer Rectal polyp Rectal bleeding GERD (gastroesophageal reflux disease) HTN (hypertension) Hypertriglyceridemia Hernia CAD (coronary atherosclerotic disease) Palpitation Cardiomyopathy LBBB (left bundle branch block) Pacemaker Home Medications ?Medication ?Instructions ?Recorded ?Last Taken ?Type ondansetron 4 mg disintegrating 4 mg PO Q6H PRN nausea and 04/26/25 Unknown Rx tablet vomiting #20 tabs Allergy/AdvReac Type Severity Reaction Status Date / Time No Known Allergies Allergy Verified 04/26/25 14:43 Surgical History Previous back surgery Social History Smoking Status: Never smoker ROS ROS ED ROS Narrative Constitutional: Denies any fevers, chills, headaches Eyes: Denies double vision Cardiovascular: Denies chest pain Respiratory: Complains of shortness of breath as noted above as well as a cough Abdomen: Complains of abdominal pain nausea vomiting as noted above as well as diarrhea denies dark tarry stools : Denies any urinary symptoms Neurological: Denies numbness, wheeze, tingling Musculoskeletal: Denies back pain Skin: Denies any rashes or lesions EXAM Physical Exam Narrative Exam Narrative: General: Patient was lying in bed rest comfortably did not appear to be acute distress Head: Atraumatic, normocephalic Eyes: PERRL bilaterally, EOMI by, no conjunctival injection noted Neck: Soft, supple, trachea midline Cardiovascular: Regular rate and rhythm no murmurs gallops rubs noted Respiratory: Clear to auscultation bilaterally Abdomen: Patient does have epigastric tenderness on exam no rebound or guarding on exam Extremities: +5/5 strength noted in the bilateral upper and lower extremities Neurological: Patient follow commands knew that he was at [facility] [id number] Skin: Warm, dry, intact no rashes lesions noted Const Vital Signs: 04/26/25 14:41 04/26/25 15:50 04/26/25 16:20 Temperature 97.4 F L Temperature Source Oral Pulse Rate 77 Respiratory Rate 16 Respiratory Effort Short of Breath Blood Pressure 117/70 Blood Pressure Mean 85 Pulse Ox 100 Oxygen Delivery Method Room Air Room Air 04/26/25 16:40 04/26/25 18:00 04/26/25 20:00 Temperature Temperature Source Pulse Rate 67 63 64 Respiratory Rate 18 16 19 H Respiratory Effort Blood Pressure 119/69 Blood Pressure Mean 85 Pulse Ox 99 99 100 Oxygen Delivery Method Room Air Room Air MDM MDM MDM Narrative Medical decision making narrative: Patient is a 64-year-old male who presented to the emerged part with a chief complaint of dyspnea on exertion, abdominal pain nausea vomiting. On the differential diagnosis includes but not limited to CHF exacerbation, ACS, pneumonia, pancreatitis, cholecystitis, viral gastroenteritis. Once workup is obtained reviewed he will be reevaluated. Patient be given IV fluids morphine Zofran. Nursing notified me that he did refuse his morphine. Patient's CBC was reviewed and showed no evidence leukocytosis white blood countwas 7.8, he was 12.7, platelet count of 156. Patient's sodium was 135, potassium normal 4.4, creatinine was elevated 1.35, AST and ALT were 27 and 35 respectively. Patient's troponin was 12 with a delta troponin of 11, EKG reviewed showed atrial sensed ventricular paced rhythm with a rate of 60 bpm no Sgarbossa criteria were met. Patient's proBNP normal less than 36, lipase normal at 47, urinalysis reviewed showed no evidence of infection. Patient chest x-ray reviewed by myself by radiology showed mild cardiomegaly with vascular congestion and probable interstitial edema no consolidation or pleural effusion noted. Patient CT abdomen pelvis IV contrast reviewed showed sigmoid colon wall thickening without significant adjacent inflammatory changes equivocal for acute uncomplicated sigmoid diverticulitis patient has no tenderness to palpation in this region therefore have low suspicion for this, borderline gastric wall thickening which may be due to underdistention or gastritis. Patient ambulated here in the emergency department had no tachycardia his oxygenlevel went down to 91% and he felt mildly short of breath. I added on a D-dimerwhich was reviewed and is normal at 0.33. I discussed these results with the patient and his daughter at bedside. With shared decision making it was decided that we will give him a dose of IV Lasix here in the emergency department and he will double his home Lasix dose. He does have an appointment on Wednesday with the heart failure clinic that he will follow-up with he states. He states that he is currently try to follow-up with Dr. Kenyon in the outpatient setting for repeat endoscopies as he does have a history of H. pylori in the past. Patient was hungry here in the emergency department and he did eat [employer] without any vomiting. Once again the patient with shared decision making would like to go home and hisdaughter at bedside is agreeable this plan all question concerns answered he is discharged home in stable condition. Lab Data Labs: Laboratory Results - last 24 hr 04/26/25 04/26/25 04/26/25 16:03 16:18 18:40 WBC 7.8 RBC 3.96 L Hgb 12.7 L Hct 36.3 L MCV 91.7 MCH 32.1 H MCHC 35.0 RDW Std Deviation 40.4 RDW Coeff of Roshni 12.0 Plt Count 156 MPV 9.8 Immature Gran % (Auto) 0.400 Neut % (Auto) 58.4 Lymph % (Auto) 27.4 Pershing % (Auto) 9.9 Eos % (Auto) 2.5 Baso % (Auto) 1.4 H Absolute Neuts (auto) 4.5 Absolute Lymphs (auto) 2.12 Nucleated RBC % 0 D-Dimer Quant (PE/DVT) Sodium 135 Potassium 4.4 Chloride 102 Carbon Dioxide 21.8 Anion Gap 12 BUN 27 H Creatinine 1.35 H Estim Creat Clear Calc 60.52 Est GFR (MDRD) Non-Af 58 L BUN/Creatinine Ratio 19.6 Glucose 102 H Calcium 9.5 Total Bilirubin 0.43 AST 27 ALT 35 Alkaline Phosphatase 46 Troponin T High Sens 12 Troponin T Hi Sens 2 Hr 11 NT pro BNP II < 36 Total Protein 7.3 Albumin 4.3 Globulin 3.0 Albumin/Globulin Ratio 1.4 Lipase 47 Urine Color Yellow Urine Clarity Clear Urine pH 6.[address] [place] 1.015 Urine Protein 30 H Urine Glucose (UA) Normal Urine Ketones Negative Urine Occult Blood Negative Urine Nitrite Negative Urine Bilirubin Negative Urine Urobilinogen 1 H Ur Leukocyte Esterase Negative Urine RBC 0-5 SEEN Urine WBC 0-5 SEEN Ur Squamous Epith Cells 0 SEEN Urine Bacteria 0 SEEN Urine Mucus RARE 04/26/25 19:55 WBC RBC Hgb Hct MCV MCH MCHC RDW Std Deviation RDW Coeff of [place] Plt Count MPV Immature Gran % (Auto) Neut % (Auto) Lymph % (Auto) Pershing % (Auto) Eos % (Auto) Baso % (Auto) Absolute Neuts (auto) Absolute Lymphs (auto) Nucleated RBC % D-Dimer Quant (PE/DVT) 0.33 Sodium Potassium Chloride Carbon Dioxide Anion Gap BUN Creatinine Estim Creat Clear Calc Est GFR (MDRD) Non-Af BUN/Creatinine Ratio Glucose Calcium Total Bilirubin AST ALT Alkaline Phosphatase Troponin T High Sens Troponin T Hi Sens 2 Hr NT pro BNP II Total Protein Albumin Globulin Albumin/Globulin Ratio Lipase Urine Color Urine Clarity Urine pH Ur Specific [place] Urine Protein Urine Glucose (UA) Urine Ketones Urine Occult Blood Urine Nitrite Urine Bilirubin Urine Urobilinogen Ur Leukocyte Esterase Urine RBC Urine WBC Ur Squamous Epith Cells Urine Bacteria Urine Mucus Radiography Diagnostic Testing: Clinical Impression(s) from Imaging Studies Chest X-Ray 04/26/25 16:21 IMPRESSION: Mild cardiomegaly with vascular congestion and probable interstitial edema. No focal airspace consolidation, or pleural effusion. Reading Location: [facility] Abdomen/Pelvis CT 04/26/25 17:30 IMPRESSION: Sigmoid colon wall thickening without significant adjacent inflammatory changes equivocal for acute uncomplicated sigmoid diverticulitis. Borderline gastric wall thickening which may be due to underdistention or gastritis. Reading Location: [id number] Discharge Plan Triage Chief Complaint: General Illness ED Provider: Rigo Haile Dx/Rx/DC Orders Clinical Impression: Abdominal pain, History of CHF (congestive heart failure), History of Helicobacter pylori infection Prescriptions: New ondansetron 4 mg tablet,disintegrating 4 mg PO Q6H PRN (Reason: nausea and vomiting) Qty: 20 0RF Primary Care Provider: Care Physician,No Primary Referrals: Care Physician,No Primary [Primary Care Provider] - Aneudy Kenyon MD [Med Staff - Active Staff] - Activity Restrictions/Additional Instructions: Follow-up your appointment on Wednesday with the heart failure team increase your Lasix dose for the next few days. Return with worsening symptoms or any concerns. Use the Zofran as sent to your pharmacy as prescribed for nausea as needed. Print Language: [place] Disposition Disposition: Home, Self Care What to do if you have Problems For any increased pain, shortness of breath, bleeding, nausea or vomiting, chestpain, or any unexpected problems, contact your Primary Care Provider. Call [facility] ([phone]) or report to the closest Emergency Room. Call 911 if necessary. 04/26/252112 <Electronically signed by Rigo Haile DO> Cosigner Signature (if applicable): CC: No Primary Care Physician ~ Signed [facility] Work Phone: 1(904) 783-548107-10-2025 Telephone encounter Note* Telephone Encounter - Aga Hector LPN - 04/26/2025 7:36 AM EDT Patient's request for medication is as follows: Requested Prescriptions Refused Prescriptions Disp Refills spironolactone (ALDACTONE) 25 mg tablet [Pharmacy Med Name: SPIRONOLACTONE 25MG TAB] 90 tablet 3 Sig: TAKE 1 TABLET BY MOUTH ONCE DAILY Refused By: AGA HECTOR Reason for Refusal: A Refill not appropriate Pharmacy asking if patient has taken Spironolactone with Lisinopril before with success. Message sent to pharmacy: Pt has been on Lisinopril and Aldactone since 2017. Potassium has been in normal range for the past 5 years based on BMP dated 04/24/2025. Prescription(s) as above. Please process accordingly. Aga Hector LPN [facility]07-10-2025 Miscellaneous Notes* Telephone Encounter - Aga Hector LPN - 04/26/2025 7:36 AM EDT Patient's request for medication is as follows: Requested Prescriptions Refused Prescriptions Disp Refills spironolactone (ALDACTONE) 25 mg tablet [Pharmacy Med Name: SPIRONOLACTONE 25MG TAB] 90 tablet 3 Sig: TAKE 1 TABLET BY MOUTH ONCE DAILY Refused By: AGA HECTOR Reason for Refusal: A Refill not appropriate Pharmacy asking if patient has taken Spironolactone with Lisinopril before with success. Message sent to pharmacy: Pt has been on Lisinopril and Aldactone since 2017. Potassium has been in normal range for the past 5 years based on BMP dated 04/24/2025. Prescription(s) as above. Please process accordingly. Aga Hector LPN documented in this encounterF[facility] Telephone encounter Note * Telephone Encounter - Fabio Montoya RN - 04/25/2025 10:44 AM EDT Patient scheduled for 05/01/25, further enc possible follow up with PCP, daughter verbalized understanding. [facility]07-09-2025 Miscellaneous Notes* Telephone Encounter - Fabio Montoya RN - 04/25/2025 10:44 AM EDT Patient scheduled for 05/01/25, further enc possible follow up with PCP, daughter verbalized understanding. * Telephone Encounter - Suzy Mac APRN.BRANDEN - 04/25/2025 8:43 AM EDT Agree if patient is calling here to be seen for swelling (abdomen or legs) and weight gain please place him on the schedule. Thank you * Telephone Encounter - Fabio Montoya RN - 04/25/2025 8:15 AM EDT Situation: Patient with c/o Shortness of Breath and swelling. 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 Ingram Conveyor Feeder Offbearer: none Assessment: Current weight: 197 lbs Review of weights: states that he has gained 30 lbs in the last month, was weighing 178 lbs at home? Breathing issues: yes SOB Difficulty breathing when lying flat: yes Swelling/where: bilateral legs/abdomen Medication Adherence: yes, he took an extra Lasix 40 mg for 2 days without results Dietary Indiscretion: reinforced Fluid Intake: may be excess Recommendations: Will route to ELO for further recommendations documented in this encounterF[facility] Telephone encounter Note * Telephone Encounter - Suzy Mac APRN.CNP - 04/25/2025 8:43 AM EDT Agree if patient is calling here to be seen for swelling (abdomen or legs) and weight gain please place him on the schedule. Thank you [facility]07-09-2025 Telephone encounter Note* Telephone Encounter - Fabio Montoya RN - 04/25/2025 8:15 AM EDT Situation: Patient with c/o Shortness of Breath and swelling. 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 Ingram Conveyor Feeder Offbearer: none Assessment: Current weight: 197 lbs Review of weights: states that he has gained 30 lbs in the last month, was weighing 178 lbs at home? Breathing issues: yes SOB Difficulty breathing when lying flat: yes Swelling/where: bilateral legs/abdomen Medication Adherence: yes, he took an extra Lasix 40 mg for 2 days without results Dietary Indiscretion: reinforced Fluid Intake: may be excess Recommendations: Will route to ELO for further recommendations [facility]07-08-2025 Telephone encounter Note* Telephone Encounter - Lucas Ingram MD - 04/24/2025 2:18 PM EDT The patient has taken spironolactone with Entresto and subsequent BMP shows normal potassium and creatinine. Lucas Ingram MD [facility]07-08-2025 Miscellaneous Notes* Telephone Encounter - Lucas Ingram MD - 04/24/2025 2:18 PM EDT The patient has taken spironolactone with Entresto and subsequent BMP shows normal potassium and creatinine. Lucas Ingram MD * Telephone Encounter - Aga Hector LPN - 04/24/2025 1:19 PM EDT Patient's request for medication is as follows: Requested Prescriptions Pending Prescriptions Disp Refills spironolactone (ALDACTONE) 25 mg tablet 90 tablet 3 Sig: Take 1 tablet by mouth once daily. Last seen 01/16/2025. Recall scheduled for 01/16/2026. states he does not take Flexeril ad does not have any left. Prescription(s) as above. Please process accordingly. Aga Hector LPN documented in this encounterFulton [facility]07-[facility]-2025 Hospital Discharge instructionsAdditional Instructions Follow-up your appointment on Wednesday with the heart failure team increase your Lasix dose for the next few days. Return with worsening symptoms or any concerns. Use the Zofran as sent to your pharmacy as prescribed for nausea as needed.[facility] Work Phone: [phone]) 220-853307-08-2025 Telephone encounter Note* Telephone Encounter - Aga Hector LPN - 04/24/2025 1:19 PM EDT Patient's request for medication is as follows: Requested Prescriptions Pending Prescriptions Disp Refills spironolactone (ALDACTONE) 25 mg tablet 90 tablet 3 Sig: Take 1 tablet by mouth once daily. Last seen 01/16/2025. Recall scheduled for 01/16/2026. states he does not take Flexeril ad does not have any left. Prescription(s) as above. Please process accordingly. Aga Hector LPN [facility]05-28-2025 Instructions* Patient Instructions* Dominic Bledsoe RN - 03/14/2025 3:16 PM EDT Thank you for visiting the Heart Failure Clinic today. KEEP UP FOR GREAT WORK!!! Please weigh daily and record. Read your food labels and watch for hidden sodium. Keep your sodium intake between 6911-7341 mg daily. 500-650 mg per meal. Continue to eat small, frequent meals. Try to include a form of protein with every meal. Keep your fluid intake at 48-64 ounces /day. Increase your activity as tolerated. Call the [facility] ([phone]) for AN APPOINTMENT (NO WALK-IN VISITS) if you have changes in symptoms or increase in weight of 3 lbs in one day or 5 lbs in a week. Thank you, Dominic Bledsoe RN documented in this encounterFulton County Health Center05-28-2025 NoteHNO ID: [id number] Author: DOMINIC BLEDSOE RN Service: ? Author Type: Registered Nurse Type: Progress Notes Filed: 03/14/2025 15:41 Note Text: CHRONIC CARE VISIT FOR: CHF Asbestos Worker Helper Dr. Louis Conveyor Feeder Offbearer N/A Vincent Madden is a 64 year old male here for evaluation and management of Heart Failure (Systolic)(HFrEF): 32% as a Follow -up Visit for established patient. BP 104/62 (BP Site: Left Arm, BP Position: Sitting, BP Cuff Size: Regular Adult) Pulse 65 Resp 18 Ht 172.7 cm (5' 8) Wt 89.2 kg (196 lb 9.6 oz) SpO2 96% BMI 29.89 kg/m? WEIGHT: Last 5 Encounter Wt Readings: Date: Wt: 03/14/2025 89.2 kg (196 lb 9.6 oz) 02/14/2025 89.4 kg (197 lb) 01/16/2025 89.2 kg (196 lb 9.6 oz) 12/24/2024 87.1 kg (192 lb) 09/05/2024 91.1 kg (200 lb 14.4 oz) Home weight 196.0 lbs HFC: 196.6 lbs Any weight change? NO-197.0 last visit Waist circumference 42 in Current Outpatient Medications Medication Sig rosuvastatin (CRESTOR) 20 mg tablet Take 1 tablet by mouth daily at bedtime. lisinopril (ZESTRIL) 20 mg tablet Take 1 tablet by mouth two times a day. furosemide (LASIX) 40 mg tablet Take 1 tablet by mouth once daily. carvedilol (COREG) 12.5 mg tablet Take 1 tablet by mouth two times a day. empagliflozin (JARDIANCE) 10 mg tablet Take 1 tablet by mouth daily with breakfast. cyclobenzaprine (FLEXERIL) 5 mg tablet Take 1 tablet by mouth three times a day as needed for muscle spasm. Tadalafil (CIALIS) 5 mg tablet Take 1 tablet by mouth once daily. Take 1 tablet by mouth daily esomeprazole (NEXIUM) 40 mg capsule Take 1 capsule by mouth once daily. spironolactone (ALDACTONE) 25 mg tablet Take 1 tablet by mouth once daily. diclofenac (VOLTAREN) 1 % topical gel Apply 2 g to affected area four times daily. meclizine (ANTIVERT) 25 mg tab Take 1 tablet by mouth three times daily as needed. topiramate (TOPAMAX) 100 mg tablet Take 1 tablet by mouth daily at bedtime. aspirin, enteric coated (ADULT LOW DOSE ASPIRIN) 81 mg EC tablet Take 1 tablet by mouth once daily. No current facility-administered medications for this visit. REVIEW OF SYSTEMS: General Well-Being: Feels well, little or no difficulties with activities of daily living Pulmonary Symptoms: No Problems with shortness of breath at rest or with activity, cough Cardiac Symptoms: No symptoms of pain, swelling, or feeling changes in heart rate GI/: Appetite good PHYSICAL EXAM: General: Appearance: Alert, oriented,in no acute distress and Gait: steady, without difficulty Pulmonary: Lungs clear to auscultation, no wheezing Cardiovascular: Rhythm regular and Edema none Abdominal:normal, soft non-tender, and good bowel sounds Additional Assessment: NYHA CLASS: 2. Slight limitation of physical activity. Ordinary physical activity results in fatigue, palpitations, dyspnea or angina pectoris (mid CHF). and II C HEALTHY BEHAVIORS: Taking all medications as prescribed? YES. Following your prescribed diet? YES Low Sodium Fluid restriction? YES Weighing yourself daily? YES Activity: Limited in ADLs GOALS: Reviewed and reinforcement was provided with emphasis on the need to weigh daily, read labels, monitor Na/fluids, monitoring for signs/symptoms, and when to call the [facility] for early intervention. Discussed importance of balancing sodium throughout the day for a goal of 500-650 mg per meal (6275-7000 mg per day) and to limit fluids to 48-64 ounces per day. Encouraged the patient to call the [facility] with any questions/concerns. EJECTION FRACTION Ejection Fraction - Result: 32 % Date: 01/08/2025 Time: 08:05:35 SUMMARY AND PLAN: Patient came to the [facility] for a follow-up visit with RN. Patient came ambulating without assistance. He did have complaints of occasional fatigue/SOB with exertion. VS completed. Reminded patient of proper BP monitoring technique (empty bladder, feet flat, back supported and arm at level of heart). Medications reviewed and patient stated that he is compliant with them. He states that he is watching sodium carefully and is reading labels. Monitoring fluid intake. Rare dining out. Reinforcement provided. Assessment revealed lungs clear, abdomen soft, no edema noted. Patient denies increased SOB/PND/cough. Weight stable at 196.6 lbs. Discussed home exercise (walking, bands, arm exercises) and home safety (no area rugs, get up slowly, no rushing to answer phone/door) guidelines. Encouraged him to increase activity as tolerated. Heart Failure specific medications: (list current, note updates, changes, prior intolerance) BB: Carvedilol MARTHA/ARB/ARNI: Lisinopril MRA: Spironolactone SGLT2: Jardiance DIURETIC: Lasix OTHER: NONE Follow up in 6 months with ELO or as needed. Dominic Bledsoe, [facility]05-28-2025 History of Present illness Narrative* Dominic Bledsoe RN - 03/14/2025 3:08 PM EDT CHRONIC CARE VISIT FOR: CHF Asbestos Worker Helper Dr. Louis Conveyor Feeder Offbearer N/A Vincent Madden is a 64 year old male here for evaluation and management of Heart Failure (Systolic)(HFrEF): 32% as a Follow -up Visit for established patient. BP 104/62 (BP Site: Left Arm, BP Position: Sitting, BP Cuff Size: Regular Adult) Pulse 65 Resp 18 Ht 172.7 cm (5' 8) Wt 89.2 kg (196 lb 9.6 oz) SpO2 96% BMI 29.89 kg/m WEIGHT: Last 5 Encounter Wt Readings: Date: Wt: 03/14/2025 89.2 kg (196 lb 9.6 oz) 02/14/2025 89.4 kg (197 lb) 01/16/2025 89.2 kg (196 lb 9.6 oz) 12/24/2024 87.1 kg (192 lb) 09/05/2024 91.1 kg (200 lb 14.4 oz) Home weight 196.0 lbs HFC: 196.6 lbs Any weight change? NO-197.0 last visit Waist circumference 42 in Current Outpatient Medications Medication Sig rosuvastatin (CRESTOR) 20 mg tablet Take 1 tablet by mouth daily at bedtime. lisinopril (ZESTRIL) 20 mg tablet Take 1 tablet by mouth two times a day. furosemide (LASIX) 40 mg tablet Take 1 tablet by mouth once daily. carvedilol (COREG) 12.5 mg tablet Take 1 tablet by mouth two times a day. empagliflozin (JARDIANCE) 10 mg tablet Take 1 tablet by mouth daily with breakfast. cyclobenzaprine (FLEXERIL) 5 mg tablet Take 1 tablet by mouth three times a day as needed for muscle spasm. Tadalafil (CIALIS) 5 mg tablet Take 1 tablet by mouth once daily. Take 1 tablet by mouth daily esomeprazole (NEXIUM) 40 mg capsule Take 1 capsule by mouth once daily. spironolactone (ALDACTONE) 25 mg tablet Take 1 tablet by mouth once daily. diclofenac (VOLTAREN) 1 % topical gel Apply 2 g to affected area four times daily. meclizine (ANTIVERT) 25 mg tab Take 1 tablet by mouth three times daily as needed. topiramate (TOPAMAX) 100 mg tablet Take 1 tablet by mouth daily at bedtime. aspirin, enteric coated (ADULT LOW DOSE ASPIRIN) 81 mg EC tablet Take 1 tablet by mouth once daily. No current facility-administered medications for this visit. REVIEW OF SYSTEMS: General Well-Being: Feels well, little or no difficulties with activities of daily living Pulmonary Symptoms: No Problems with shortness of breath at rest or with activity, cough Cardiac Symptoms: No symptoms of pain, swelling, or feeling changes in heart rate GI/: Appetite good PHYSICAL EXAM: General: Appearance: Alert, oriented,in no acute distress and Gait: steady, without difficulty Pulmonary: Lungs clear to auscultation, no wheezing Cardiovascular: Rhythm regular and Edema none Abdominal:normal, soft non-tender, and good bowel sounds Additional Assessment: NYHA CLASS: 2. Slight limitation of physical activity. Ordinary physical activity results in fatigue, palpitations, dyspnea or angina pectoris (mid CHF). and II C HEALTHY BEHAVIORS: Taking all medications as prescribed? YES. Following your prescribed diet? YES Low Sodium Fluid restriction? YES Weighing yourself daily? YES Activity: Limited in ADLs GOALS: Reviewed and reinforcement was provided with emphasis on the need to weigh daily, read labels, monitor Na/fluids, monitoring for signs/symptoms, and when to call the [facility] for early intervention. Discussed importance of balancing sodium throughout the day for a goal of 500-650 mg per meal (9274-8385 mg per day) and to limit fluids to 48-64 ounces per day. Encouraged the patient to call the [facility] withany questions/concerns. EJECTION FRACTION Ejection Fraction - Result: 32 % Date: 01/08/2025 Time: 08:05:35 SUMMARY AND PLAN: Patient came to the [facility] for a follow-up visit with RN. Patient came ambulating without assistance. He did have complaints of occasional fatigue/SOB with exertion. VS completed. Reminded patient of proper BP monitoring technique (empty bladder, feet flat, back supported and arm at level of heart). Medications reviewed and patient stated that he is compliant with them. He states that he is watching sodium carefully and is reading labels. Monitoring fluid intake. Raredining out. Reinforcement provided. Assessment revealed lungs clear, abdomen soft, no edema noted. Patient denies increased SOB/PND/cough. Weight stable at 196.6 lbs. Discussed home exercise (walking, bands, arm exercises) and home safety (no area rugs, get up slowly, no rushing to answer phone/door) guidelines. Encouraged him to increase activity as tolerated. Heart Failure specific medications: (list current, note updates, changes, prior intolerance) BB: Carvedilol MARTHA/ARB/ARNI: Lisinopril MRA: Spironolactone SGLT2: Jardiance DIURETIC: Lasix OTHER: NONE Follow up in 6 months with ELO or as needed. Dominic Bledsoe RN documented in this encounterFulton [facility]05-19-2025 Telephone encounter Note * Telephone Encounter - Vinita Moore LPN - 03/05/2025 4:58 PM EDT Spoke with Himanshu about patient's test results. Himanshu verbalizes understanding. Vinita Moore LPN [facility]05-19-2025 Miscellaneous Notes* Telephone Encounter - Vinita Moore LPN - 03/05/2025 4:58 PM EDT Spoke with Himanshu about patient's test results. Himanshu verbalizes understanding. Vinita Moore LPN * Telephone Encounter - Vinita Moore LPN - 03/05/2025 4:57 PM EDT ----- Message from Tomasz Louis MD sent at 03/05/2025 4:24 PM EDT ----- Chest x-ray looks good no pneumonia or heart failure dac documented in this encounterFulton County [facility] Center05-19-2025 Telephone encounter Note * Telephone Encounter - Vinita Moore LPN - 03/05/2025 4:57 PM EDT ----- Message from Tomasz Louis MD sent at 03/05/2025 4:24 PM EDT ----- Chest x-ray looks good no pneumonia or heart failure dac [facility]05-17-2025 History of Present illness Narrative* Chavez Sanchez RT(R) - 03/03/2025 8:55 AM EDT Radiology Service Progress Note PATIENT NAME: Vincent Madden DATE OF SERVICE: March 03, 2025 TIME: 9:21 AM PATIENT IDENTITY VERIFICATION COMPLETED USING TWO (2) IDENTIFIERS: Name and Date of confirmedby patient verbally. FALL SCREENING: Has the patient had 2 falls in the last year or 1 fall with injury or currently using an Ambulatory Assistive Device (Walker, Cane, Wheelchair, Crutches, etc.)? No PATIENT GENDER DATA: Assigned male at PATIENT RELEVANT IMPLANT DATA REVIEWED: Not Applicable PATIENT PRESENTS WITH AN IMPLANTABLE OR ATTACHED COOK FRY: No RADIOLOGY DEPARTMENT: General X-ray: Exam(s) Completed: Chest X-Ray PERIPHERAL IV DATA: Not applicable SIGNED BY: RT Nelson(R) March 03, 2025 9:21 AM documented in this encounterFulton County Health Center05-17-2025 NoteHNO ID: [id number] Author: CHAVEZ SANCHEZ RT(R) Service: Radiology Author Type: Technologist Type: Progress Notes Filed: 03/03/2025 09:21 Note Text: Radiology Service Progress Note PATIENT NAME: Vincent Madden DATE OF SERVICE: March 03, 2025 TIME: 9:21 AM PATIENT IDENTITY VERIFICATION COMPLETED USING TWO (2) IDENTIFIERS: Name and Date of confirmed by patient verbally. FALL SCREENING: Has the patient had 2 falls in the last year or 1 fall with injury or currently using an Ambulatory Assistive Device (Walker, Cane, Wheelchair, Crutches, etc.)? No PATIENT GENDER DATA: Assigned male at PATIENT RELEVANT IMPLANT DATA REVIEWED: Not Applicable PATIENT PRESENTS WITH AN IMPLANTABLE OR ATTACHED COOK FRY: No RADIOLOGY DEPARTMENT: General X-ray: Exam(s) Completed: Chest X-Ray PERIPHERAL IV DATA: Not applicable SIGNED BY: Chavez Cody, RT(R) March 03, 2025 9:21 [facility]05-08-2025 Telephone encounter Note* Telephone Encounter - Vinita Moore LPN - 02/22/2025 4:19 PM EDT Informed Himanshu that patient can switch back to lisinopril 20 mg twice daily; he can start this 36 to 48 hours after running out or finishing the Entresto. Lisinopril sent to local pharmacy. Himanshu verbalizes understanding. Vinita Moore LPN [facility]05-08-2025 Miscellaneous Notes* Telephone Encounter - Vinita Moore LPN - 02/22/2025 4:19 PM EDT Informed Himanshu that patient can switch back to lisinopril 20 mg twice daily; he can start this 36 to 48 hours after running out or finishing the Entresto. Lisinopril sent to local pharmacy. Himanshu verbalizes understanding. Vinita Moore LPN * Telephone Encounter - Vinita Moore LPN - 02/22/2025 4:18 PM EDT Images from the original note were not included. Tomasz Louis MD [facility] (4:18 PM) As per other note we will switch him back to lisinopril 20 mg twice daily. He can start this 36 to 48 hours after running out or finishing the Entresto. I sent prescription to his local pharmacy [facility] * Telephone Encounter - Vinita Moore LPN - 02/22/2025 4:03 PM EDT Himanshu called [facility] to report patient is unable to afford Entresto at this time. Is there another medication patient is able to take? Vinita Moore LPN [facility] Tele[facility] encounter Note * Telephone Encounter - Vinita Moore LPN - 02/22/2025 4:18 PM EDT Images from the original note were not included. Tomasz Louis MD [facility] (4:18 PM) As per other note we will switch him back to lisinopril 20 mg twice daily. He can start this 36 to 48 hours after running out or finishing the Entresto. I sent prescription to his local pharmacy [facility]05[facility] Telephone encounter Note* Telephone Encounter - Vinita Moore LPN - 02/22/2025 4:03 PM EDT Himanshu called [facility] to report patient is unable to afford Entresto at this time. Is there another medication patient is able to take? Vinita Moore LPN [facility]05-08-[facility]25 Telephone encounter Note* Telephone Encounter - Fabio Montoya RN - 02/22/2025 3:58 PM EDT Call returned to [place]. Patient has one day of Entresto left. Instructed on recommendations per Janene Romeo CNP. Patient will need refills on Lisinopril, forwarded to Dr. Louis. Himanshu verbalized understanding. [facility]05-08-[facility] Miscellaneous Notes* Telephone Encounter - Fabio Montoya RN - 02/22/2025 3:58 PM EDT Call returned to [place]. Patient has one day of Entresto left. Instructed on recommendations per Janene Romeo CNP. Patient will need refills on Lisinopril, forwarded to Dr. Louis. Himanshu verbalized understanding. * Telephone Encounter - Ember Romeo APRN.CNP - 02/22/2025 2:36 PM EDT Please call patient, Please allow a 36-hour washout period when switching from or to an MARTHA inhibitor / lisinopril. Patient was on lisinopril 20 mg twice daily previously we can simply go back to that. Ember Marquez APRN.BRANDEN * Telephone Encounter - Fabio Montoya RN - 02/22/2025 1:39 PM EDT Background: Current Medication: Question regarding re-starting Lisinopril Last seen in the [facility] and weight: 02/14/25 197 lbs Please see last note in EPIC on 02/14/25 from the [facility] regarding med changes. 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 Routed to Jerardo Mac CNP and Janene Romeo CNP. * Telephone Encounter - Gely Awad - 02/22/2025 11:06 AM EDT Patient's daughter, Himanshu, reached out to the [facility] with concern of medication. Patient can no longer afford Entresto so will be taking Lisinopril in replacement. When patient did start Entresto he was instructed to stop Lisinopril for 4 days before starting Entresto. No patient going back on to Li sinopril does he need to be off Entresto for 4 days before going back on to Lisinopril? Himanshu [phone] documented in this encounterF[facility]05-[facility] Telephone encounter Note * Telephone Encounter - Ember Romeo APRN.CNP - 02/22/2025 2:36 PM EDT Please call patient, Please allow a 36-hour washout period when switching from or to an MARTHA inhibitor / lisinopril. Patient was on lisinopril 20 mg twice daily previously we can simply go back to that. Ember Marquez APRN.BRANDEN [facility] Work Phone: [phone]) 143-397805-08-2025 Telephone encounter Note* Telephone Encounter - Fabio Montoya RN - 02/22/2025 1:39 PM EDT Background: Current Medication: Question regarding re-starting Lisinopril Last seen in the [facility] and weight: 02/14/25 197 lbs Please see last note in EPIC on 02/14/25 from the [facility] regarding med changes. 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 Routed to Jerardo Mac CNP and Janene Romeo CNP. [facility]05-08[facility] Telephone encounter Note* Telephone Encounter - Gely Awad - 02/22/2025 11:06 AM EDT Patient's daughter, Himanshu, reached out to the [facility] with concern of medication. Patient can no longer afford Entresto so will be taking Lisinopril in replacement. When patient did start Entresto he was instructed to stop Lisinopril for 4 days before starting Entresto. No patient going back on to Li sinopril does he need to be off Entresto for 4 days before going back on to Lisinopril? Himanshu [phone] [facility]04-30[facility] History of Present illness Narrative* Suzy Mac APRN.TECHNICAL SERVICES REPRESENTATIVE - 02/14/2025 3:45 PM EDT PRIMARY CARE PHYSICIAN: To use this Smartlink, specify the provider ID whose address you want to display, e.g., .PROVADDR[1(where 1 is the provider ID). Chief Complaint Patient presents with: CHF HISTORY OF PRESENT ILLNESS: Mr. 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 Louis. Patient very pleasant alert and oriented. Patient accompanied today with daughter. Both very willing and eager to learn. With review of fluid and salt restriction this is not necessarily new for patient he is very well versed. And he feels he is doing well. I have asked him to look at some of the items at his home that he mentions theymay be higher in salt than he thinks. With review of most recent echocardiogram he had a drop in his ejection fraction to the 30s. Dr. Louis started patient on GDMT. Discussed with patient the goal is to adjust these medications as bestas we can using his blood pressure heart rate and weights. Patient has yet to obtain any of these numbers. So I have asked him to begin. Unfortunately patient does not know his own medication list. He allows his daughter to answer for him and manage his medications excetra. On Wednesday he think he took them twice. Spent time discussing the importance of knowing his own medications and how he needs to work out some type of pillbox excetra so that he knows not to double take them. Patient and daughter are agreeable with this. As part of GDMT they stated that their pharmacy had told them Entresto was several $100 and they declined and asked Dr. Louis to go back to lisinopril. They do not have the lisinopril at home at this time. They were agreeable to allowing me to send this prescription to [facility] pharmacy tosee if they can help with prior authorization and any thoughts. If they still cannot afford daughter is to call me so that we can go ahead and prescribe the lisinopril that patient was previously on.Dr. Louis has already ordered blood work for the GDMT medications that he added. At this time patient is not having a cost issue with the SGLT2 inhibitors but I have asked them to let us know what they do. Exam today rather benign no fluid volume retention Pt denies chest pain, leg swelling, shortness of breath, heart palpitations, orthopnea, cough, fever, dizziness, near syncope or syncope, nausea, vomiting diaphoresis, or falls Reviewed with patient and adjusted as needed : PMH, PSH, Fam hx, Social hx, Allergies. Medications: Current Outpatient Medications Medication Sig Dispense Refill furosemide (LASIX) 40 mg tablet Take 1 tablet by mouth once daily. 90 tablet 3 atorvastatin (LIPITOR) 20 mg tablet Take 1 tablet by mouth once daily. 90 tablet 3 carvedilol (COREG) 12.5 mg tablet Take 1 tablet by mouth two times a day. 180 tablet 3 empagliflozin (JARDIANCE) 10 mg tablet Take 1 tablet by mouth daily with breakfast. 30 tablet 11 cyclobenzaprine (FLEXERIL) 5 mg tablet Take 1 tablet by mouth three times a day as needed for muscle spasm. 15 tablet 0 esomeprazole (NEXIUM) 40 mg capsule Take 1 capsule by mouth once daily. 30 capsule 11 spironolactone (ALDACTONE) 25 mg tablet Take 1 tablet by mouth once daily. 90 tablet 0 meclizine (ANTIVERT) 25 mg tab Take 1 tablet by mouth three times daily as needed. 90 tablet 2 aspirin, enteric coated (ADULT LOW DOSE ASPIRIN) 81 mg EC tablet Take 1 tablet by mouth once daily.0 sacubitril-valsartan (ENTRESTO) 24-26 mg tablet Take 1 tablet by mouth two times a day. First dose January 19 tablet 3 Tadalafil (CIALIS) 5 mg tablet Take 1 tablet by mouth once daily. Take 1 tablet by mouth daily 30 tablet 11 diclofenac (VOLTAREN) 1 % topical gel Apply 2 g to affected area four times daily. 450 g 0 topiramate (TOPAMAX) 100 mg tablet Take 1 tablet by mouth daily at bedtime. 30 tablet 4 No current facility-administered medications for this visit. Review of Systems Constitutional: Negative for activity change, appetite change, chills, fatigue and fever. HENT: Negative for ear discharge, nosebleeds and sinus pain. Eyes: Negative for discharge. Respiratory: Negative for apnea, cough, chest tightness, shortness of breath and wheezing. Cardiovascular: Negative for chest pain, palpitations and leg swelling. Gastrointestinal: Negative for abdominal distention, abdominal pain, anal bleeding, blood in stool,nausea and vomiting. Genitourinary: Negative for difficulty urinating. Musculoskeletal: Negative for gait problem. Skin: Negative. Neurological: Negative for dizziness, syncope, weakness and light-headedness. Hematological: Does not bruise/bleed easily. Psychiatric/Behavioral: Negative for confusion and sleep disturbance. Physical Examination: Vitals:BP 125/76 Pulse 80 Wt 197 lb (89.4kg) SpO2 96[RA]% Last 2 Encounter Wt Readings: Date: Wt: 01/16/2025 89.2 kg (196 lb 9.6 oz) 12/24/2024 87.1 kg (192 lb) Physical Exam Vitals and nursing note reviewed. Constitutional: General: He is not in acute distress. Appearance: Normal appearance. He is not ill-appearing, toxic-appearing or diaphoretic. HENT: Head: Normocephalic. Nose: Nose normal. Eyes: General: Vision grossly intact. Extraocular Movements: Extraocular movements intact. Neck: Vascular: No carotid bruit, hepatojugular reflux or JVD. Trachea: No tracheal deviation. Cardiovascular: Rate and Rhythm: Normal rate and regular rhythm. Chest Wall: PMI is not displaced. Pulses: Normal pulses. Heart sounds: Normal heart sounds. No murmur heard. Pulmonary: Effort: Pulmonary effort is normal. No respiratory distress. Breath sounds: Normal breath sounds. Abdominal: General: Bowel sounds are normal. Palpations: Abdomen is soft. Tenderness: There is no abdominal tenderness. Musculoskeletal: General: Normal range of motion. Cervical back: Normal range of motion and neck supple. Right lower leg: No edema. Left lower leg: No edema. Skin: General: Skin is warm and dry. Capillary Refill: Capillary refill takes less than 2 seconds. Coloration: Skin is not pale. Nails: There is no clubbing. Neurological: Mental Status: He is alert and oriented to person, place, and time. Cranial Nerves: No facial asymmetry. Motor: No weakness. Coordination: Coordination normal. Gait: Gait normal. Psychiatric: Attention and Perception: Attention normal. Mood and Affect: Mood normal. Behavior: Behavior normal. Thought Content: Thought content normal. Cognition and Memory: Memory normal. Judgment: Judgment normal. Prior Cardiac Testing Echocardiogram 12/2024 Impression CONCLUSIONS: - Exam indication: Routine surveillance (>1yr) of known cardiomyopathy without a change in clinical status - The left ventricle is mildly dilated. There is mild concentric left ventricular hypertrophy. Left ventricular systolic function is moderately decreased. EF = 32 5% (2D biplane) Definity contrast used for endocardial border detection. Left ventricular diastolic function was not evaluated due to pacing. - The right ventricle is normal in size. Right ventricular systolic function is normal. - The left atrial cavity is mildly dilated. - Exam was compared with the prior echocardiographic exam performed on 06/12/2021. LV function has decreased. Wall Motion: The entire anterior wall, entire lateral wall, entire septum, entire apex, and entire inferior wall are mildly hypokinetic. NM Stress 2020 CONCLUSIONS: 1. SPECT Perfusion Study: Normal. 2. There is no scintigraphic evidence for inducible ischemia. 3. No evidence of scarred myocardium. 4. Left ventricle is normal in size. The left ventricle systolic function is normal. 5. Right ventricle is normal in size. 6. This is a low risk scan. Gated Stress FBP LVEF % 56 Assessment and Plan: ASSESSMENT/PLAN: 1. Chronic HFrEF (heart failure with reduced ejection fraction) (HCC) - ICD9: 428.22, ICD10: I50.22 NYHA I Pt currently denies shortness of breath, orthopnea, leg edema, fluid retention in abdomen or hips, increased fatigue --Reviewed diet 2mg sodium, 64oz fluid restriction< monitoring wts and calling the office if noticing a 3 pound weight gain in 2 days --Discussed foods to avoid such as canned foods, lunch meats, frozen meals, champagne, sausage, and restaurant meals. --cont to follow with the heart failure clinic 1 month to review fluid salt blood work and to see if we can increase any GDMT and/or if patient was able to obtain Entresto what her blood pressures are at home excetra. -Continue : BB : Coreg 12.5mg bid --heart rate in the 80s would like to attempt titration but will wait till after lisinopril/Entresto is started to see what blood pressures are MARTHA/ARB/ARNI : Entresto --- patient did not obtain yet. Prescription sent to [facility] pharmacy to see if they will help with PA and cost. If not patient was on lisinopril 20 mg twice daily previously we can simply go back to that. Daughter will call us and let us know if there is any cost issues from our [facility] pharmacy. -------- patient is aware to begin monitoring blood pressure heart rate and weights explained to them that these are the numbers that we need to titrate medication. MRA : Spironolactone 25 mg daily SGLT2i : Jardiance 10 Diuretic : Lasix 40 mg daily Discussed with patient when to take extra Lasix on an as-needed basis,when to call our office, phone number given. Hydralazine : NO Isosorbide : NO Suzy Mac APRN.BRANDEN Plan: see chf plan above Follow up planning: Return in about 4 weeks (around 03/14/2025) for CHF Nurse. Medical Decision Making: Problems: Moderate: 2+ stable chronic illnesses Data: Unique source(s) for external note(s) reviewed: 2 Unique test result(s) reviewed: 2 Assessment requiring an independent historian(s) Risk: Moderate: Drug management Medical Decision Making Level: 4 - Moderate The above note was partially created using a dictation recognition software. A reasonable attempt has been made to correct any errors. I have confirmed and edited as necessary the [facility] and information obtained by others. Reviewed with patient to call with any routine questions arise, however patient developed increasing symptoms or symptoms became worse in severity made to call 911 and presented to the closest emergency department from urgent treatment. * Kathleen William RN - 02/14/2025 3:33 PM EDT Patient presents to the [facility] for initial HFC visit with ELO. He is ambulating independently and is accompanied by his daughter. Sometimes with c/o dizziness/lightheadedness when up and active or when doing too much. Prescribed Antivert PRN. SOB with exertion at times. Weight gain over 20 lbs in 1 month. States stomach is bloated. Has BP cuff at home but not checking BP at home. Medication updates noted in MAR. Adherence with medications: questionable on what he is taking versus not taking. Has not started Entresto d/t cost. Initially, MAR noted taking Entresto but Jardiance was noted as not started due to cost. Daughter confirms he is taking Jardiance but NOT taking Entrestro. Patient does not seem familiar with medications and often defers to daughter to answer whether taking or not. Weight at home: 194 lb Weight in HFC: 197 lb Previous HFC visit: 196 lb OV 01/16/25 Dietary Adherence: YES Patient had Heart Failure RN phone call with education on 02/08/25. Patient was hand delivered education packet to supplement teaching provided over telephone. Education packet includes: importance offollowing a 2 gm sodium diet (500-650mg / meal), 64 oz fluid restriction, label reading, medicationadherence, increased activity, daily weights and follow up care. Heart Failure Zone sheet reviewed. Reminded patient of the signs/symptoms of impending CHF and when to call the HFC for early intervention. Patient further evaluated by ELO. Recommendations received at this time, placed on After Visit Summary, and reviewed with patient. documented in [facility]25 NoteHNO ID: [id number] Author: SUZY MAC APRN.BRANDEN Service: ? Author Type: Nurse Practitioner Type: Progress Notes Filed: 02/14/2025 17:28 Note Text: PRIMARY CARE PHYSICIAN: To use this Smartlink, specify the provider ID whose address you want to display, e.g., .PROVADDR[1 (where 1 is the provider ID). Chief Complaint Patient presents with: CHF HISTORY OF PRESENT ILLNESS: Mr. 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 Louis. Patient very pleasant alert and oriented. Patient accompanied today with daughter. Both very willing and eager to learn. With review of fluid and salt restriction this is not necessarily new for patient he is very well versed. And he feels he is doing well. I have asked him to look at some of the items at his home that he mentions they may be higher in salt than he thinks. With review of most recent echocardiogram he had a drop in his ejection fraction to the 30s. Dr. Louis started patient on GDMT. Discussed with patient the goal is to adjust these medications as best as we can using his blood pressure heart rate and weights. Patient has yet to obtain any of these numbers. So I have asked him to begin. Unfortunately patient does not know his own medication list. He allows his daughter to answer for him and manage his medications excetra. On Wednesday he think he took them twice. Spent time discussing the importance of knowing his own medications and how he needs to work out some type of pillbox excetra so that he knows not to double take them. Patient and daughter are agreeable with this. As part of GDMT they stated that their pharmacy had told them Entresto was several $100 and they declined and asked Dr. Louis to go back to lisinopril. They do not have the lisinopril at home at this time. They were agreeable to allowing me to send this prescription to [facility] pharmacy to see if they can help with prior authorization and any thoughts. If they still cannot afford daughter is to call me so that we can go ahead and prescribe the lisinopril that patient was previously on. Dr. Louis has already ordered blood work for the GDMT medications that he added. At this time patient is not having a cost issue with the SGLT2 inhibitors but I have asked them to let us know what they do. Exam today rather benign no fluid volume retention Pt denies chest pain, leg swelling, shortness of breath, heart palpitations, orthopnea, cough, fever, dizziness, near syncope or syncope, nausea, vomiting diaphoresis, or falls Reviewed with patient and adjusted as needed : PMH, PSH, Fam hx, Social hx, Allergies. Medications: Current Outpatient Medications Medication Sig Dispense Refill furosemide (LASIX) 40 mg tablet Take 1 tablet by mouth once daily. 90 tablet 3 atorvastatin (LIPITOR) 20 mg tablet Take 1 tablet by mouth once daily. 90 tablet 3 carvedilol (COREG) 12.5 mg tablet Take 1 tablet by mouth two times a day. 180 tablet 3 empagliflozin (JARDIANCE) 10 mg tablet Take 1 tablet by mouth daily with breakfast. 30 tablet 11 cyclobenzaprine (FLEXERIL) 5 mg tablet Take 1 tablet by mouth three times a day as needed for muscle spasm. 15 tablet 0 esomeprazole (NEXIUM) 40 mg capsule Take 1 capsule by mouth once daily. 30 capsule 11 spironolactone (ALDACTONE) 25 mg tablet Take 1 tablet by mouth once daily. 90 tablet 0 meclizine (ANTIVERT) 25 mg tab Take 1 tablet by mouth three times daily as needed. 90 tablet 2 aspirin, enteric coated (ADULT LOW DOSE ASPIRIN) 81 mg EC tablet Take 1 tablet by mouth once daily. 0 sacubitril-valsartan (ENTRESTO) 24-26 mg tablet Take 1 tablet by mouth two times a day. First dose January 19 90 tablet 3 Tadalafil (CIALIS) 5 mg tablet Take 1 tablet by mouth once daily. Take 1 tablet by mouth daily 30 tablet 11 diclofenac (VOLTAREN) 1 % topical gel Apply 2 g to affected area four times daily. 450 g 0 topiramate (TOPAMAX) 100 mg tablet Take 1 tablet by mouth daily at bedtime. 30 tablet 4 No current facility-administered medications for this visit. Review of Systems Constitutional: Negative for activity change, appetite change, chills, fatigue and fever. HENT: Negative for ear discharge, nosebleeds and sinus pain. Eyes: Negative for discharge. Respiratory: Negative for apnea, cough, chest tightness, shortness of breath and wheezing. Cardiovascular: Negative for chest pain, palpitations and leg swelling. Gastrointestinal: Negative for abdominal distention, abdominal pain, anal bleeding, blood in stool, nausea and vomiting. Genitourinary: Negative for (more content not included)...[facility]04-30-2025 Instructions* Patient Instructions* Suzy Mac APRN.TECHNICAL SERVICES REPRESENTATIVE - 02/14/2025 3:35 PM EDT Thank you for visiting the [facility] today. [facility] pharmacy will call you to discuss the cost of Entresto Their number is a [phone] or DO NOT TAKE Lisinopril and Entresto Monitor blood pressure, heart rate, weights OK to take an extra Furosemide/Lasix as needed for increased weight, shortness of breath or swelling in the abdomen or legs. For any guidance please call the heart failure clinic at [phone] Please weigh daily and record. Read your food labels and watch for hidden sodium. Keep your sodium intake between 1500-2000mg daily (which is 500-650mg per meal x 3 meals a day). Remember, any foods made or created by someone elsemay have a high content of sodium such as restaurant foods or foods made by friends and family. Continue to eat small, frequent meals. Try to include a form of protein with every meal. Keep your fluid intake a 48-64 ounces/day. This includes anything liquid at room temperature such as jello, pudding, yogurt, and ice cream. Increase your activity as tolerated. Call the [facility] [phone] for AN APPOINTMENT (NO walk in visits) if you have changes in symptoms orincrease in weight of 3lbs in one day or 5 lbs in a week. Thank you, Heart Failure Clinic documented in this encounterF[facility]04-30-[facility]25 NoteHNO ID: [id number] Author: KATHLEEN WILLIAM RN Service: ? Author Type: Registered Nurse Type: Progress Notes Filed: 02/14/2025 17:28 Note Text: Patient presents to the [facility] for initial HFC visit with ELO. He is ambulating independently and is accompanied by his daughter. Sometimes with c/o dizziness/lightheadedness when up and active or when doing too much. Prescribed Antivert PRN. SOB with exertion at times. Weight gain over 20 lbs in 1 month. States stomach is bloated. Has BP cuff at home but not checking BP at home. Medication updates noted in MAR. Adherence with medications: questionable on what he is taking versus not taking. Has not started Entresto d/t cost. Initially, MAR noted taking Entresto but Jardiance was noted as not started due to cost. Daughter confirms he is taking Jardiance but NOT taking Entrestro. Patient does not seem familiar with medications and often defers to daughter to answer whether taking or not. Weight at home: 194 lb Weight in [facility]: 197 lb Previous [facility] visit: 196 lb OV 01/16/25 Dietary Adherence: YES Patient had Heart Failure RN phone call with education on 02/08/25. Patient was hand delivered education packet to supplement teaching provided over telephone. Education packet includes: importance of following a 2 gm sodium diet (500-650mg / meal), 64 oz fluid restriction, label reading, medication adherence, increased activity, daily weights and follow up care. Heart Failure Zone sheet reviewed. Reminded patient of the signs/symptoms of impending CHF and when to call the [facility] for early intervention. Patient further evaluated by ELO. Recommendations received at this time, placed on After Visit Summary, and reviewed with patient.[facility] 02-08-2025 NoteHNO ID: [id number] Author: LINDSEY ARANA RN Service: ? Author Type: Registered Nurse Type: Progress Notes Filed: 02/08/2025 13:49 Note Text: A phone visit was placed to educate patient on signs, symptoms, medications and diet for Heart Failure patients. This phone or virtual visit was conducted to prevent risk and to optimize the patient's heart health. Patient is aware of the inherent limitations of a phone encounter. Verbal consent obtained. Name and verified. Heart Failure Clinic Telephone Visit Spoke directly with patient Yes and dtr Himanshu New patient visit Yes Established patient visit No Change in health status since discharge n/a, pt was referral from cardiology Do you have a scale to at home to weigh yourself everyday? Yes Are you weighing yourself daily and writing it down? Yes Weight at discharge/last visit 196 lb at OV Weight today 195 lb Do you have any signs/symptoms? Weight gain gradual, states he gained 20 lbs over the last few months , reports cardiology didn't think it was fluid Edema No per pt SOB with activity Yes with heavy exertion SOB at rest No SOB when lying flat yes, sometimes # of pillows 1-2 Abdominal distention No Changed in appetite eats like a bird Cough No Do you know who to contact if you have weight gain or symptoms? Reviewed [facility] contact info Do you know what other symptoms to report to the HF Clinic? Reviewed HF zone sheet symptoms with pt Medications were reviewed Yes Heart Failure specific medications: (list current, note updates, changes, prior intolerance) BB: coreg 12.5 bid MARTHA/ARB/ARNI: entresto 24-26 bid MRA: spironolactone 25 daily SGLT2: jardiance 10 daily DIURETIC: lasix 40 daily Do you have all of your medications? Yes Have you been taking your medications as directed? Yes Have you been maintaining a 4563-1210 mg of sodium diet? No, not reading labels. He does the cooking, occasionally adds salt. May need re-enforcement in sodium teaching. Discussed avoiding foods high in hidden sodium (canned items, processed meats, frozen meals, restaurant food, etc) Educated on balancing sodium evenly throughout the day with a goal of 500-650mg per meal x 3 meals a day. Are you reading labels? No Have you been maintaining a 2 liter (64 oz) fluid restriction? Unsure, pt not measuring. Pt thinks he is. Encouraged pt to start measuring Diet reviewed Yes Are you exercising/active? Very active per pt Do you have any questions/concerns? No Reviewed who to contact for questions/concerns Yes Confirmed patient has HF Clinic phone number and provider phone numbers Yes Reviewed HF Clinic hours of operation Yes Reviewed when to seek Emergency Room/911 care Yes Reviewed upcoming appointments Yes Verbalized understanding? Yes Next visit 02/14/25 with TECHNICAL SERVICES REPRESENTATIVE, will need HF zone sheet at this OV Time spent: 30 > 50% counseling and coordination of care Lindsey Arana RN February 08, 2025 1:01 [facility] 02-05-2025 History of Present illness Narrative* Madelyn Dc APRN.TECHNICAL SERVICES REPRESENTATIVE - 02/05/2025 3:15 PM EDT Images from the original note were not included. [facility] Today's Date: 02/05/2025 Name: Vincent Madden : 1960 Purpose: Follow up Chief complaint: neck pain Referring Clinician: Jim Malhotra Pertinent Past Medical History: CHF,GERD, Pertinent Past Surgeries: Defibrillator Plan at last visit: Follow up TPI Interv al History: Overall pain and functional disability since last visit: Better New Complaints since last visit: No Follow up TPI today Patient reports 75 % relief from procedure with pain score of 2/10 to date. Patient reports improved quality of life and increase in ability to perform ADL's. Patient denies any adverse side effects such as nausea, vomiting, hives, fever, injection site redness/induration, headache, or new radicular symptoms. Current Pain Medications: Neuropathics: gabapentin NSAIDS: Muscle Relaxants: Flexeril Topicals: Other Prescription or OTC Pain Medications: Voltaren gel Opioids (when applicable): Anti-depressants or Mood-Stabilizers: None Anti-Coagulants: None Therapies Attended (Current or Most Recent): No Current Therapies 12/29/2024 AG SPINE COMBINATION Questionnaire GREENLIGHT Completed Date 12/29/2024 Questionnaire Opiod Risk Tool Completed Date 12/29/2024 No question data found. (All drug screens are appropriate unless indicated otherwise) Notabl e Events During Course of Treatment: History of Present Illness (HPI): 12/29/2024 - Initial HPI (Obtained by ).Madelyn Dc APRN.TECHNICAL SERVICES REPRESENTATIVE DURATION AND ONSET: last Wednesday for no reason - denies trauma RED FLAG SYMPTOMS: .denies PAIN DESCRIPTION: Timing: constant Character: aching, sharp Primary Location: bilateral 3 muscle groups trapezius, levator scapulae and supra scapular muscle groups Radiation: none Exacerbating factors: movement Relieving factors: nothing Interferes with: everything 12/24/24 ED visit: Is a 64-year-old male with cardiac history found to have acute cervical myofascial strain of the left paracervical musculature. No trauma no significant red flags. [place] this could be managed with medication management. Patient is administered IM Toradol, oral cyclobenzaprine. We discussed risk benefits and alternatives to trigger point injection and patient is agreeable. See procedure note above. Patient tolerated this wellsymptoms were modestly improved. Prescriptions to the pharmacy for oral naproxen short course, oralcyclobenzaprine. To follow-up with spine clinic if symptoms continue to persist. We discussed heat and gentle mobilization. We discussed worsening signs and symptoms that would warrant return to the emergency department. Current Pain Medications: Neuropathics: gabapentin, Topamax NSAIDS: Naprosyn Muscle Relaxants: Flexeril Topicals: Voltaren gel Other Prescription or OTC Pain Medications: Opioids (when applicable): Anti-depressants or Mood-Stabilizers: None Anti-Coagulants: None Therapies Attended (Current or Most Recent): No Current Therapies 12/29/2024 AG SPINE COMBINATION Questionnaire GREENLIGHT Completed Date 12/29/2024 Questionnaire Opiod Risk Tool Completed Date 12/29/2024 No question data found. (All drug screens are appropriate unless indicated otherwise) Treatment History: PAIN PROCEDURES: DATE PROCEDURE IMPROVEMENT To date, no interventional pain management procedures performed at this practice. MEDICATIONS Taken TO DATE (for the chief complaint(s)): Neuropathics: Neurontin (Gabapentin) NSAIDS: Naprosyn (Naproxen) Muscle Relaxants: Flexeril (Cyclobenzaprine) Topicals: Voltaren (Gel) Other Prescription or OTC Pain Medications: None Opioids: None Compliance: PDMP website checked and validated on 02/05/2025 by Madelyn Dc APRN.TECHNICAL SERVICES REPRESENTATIVE All prescriptions have been APPROPRIATELY filled. No suspicious activity was identified. 12/29/2024 AG SPINE COMBINATION Questionnaire GREENLIGHT Completed Date 12/29/2024 Questionnaire Opiod Risk Tool Completed Date 12/29/2024 (All drug screens are appropriate unless indicated otherwise) Risk Assessment: KUSUM-7: 12/29/2024 KUSUM - 7 SCORES Score 14 (0-4) minimal anxiety, (5-9) mild anxiety, (10-14) moderate anxiety, (15-21) severe anxiety PHQ-9: 12/05/2012 01/09/2020 12/29/2024 PHQ-9 Score 26 0 10 (0-4) minimal depression, (5-9) mild depression, (10-14) moderate depression, (15-19) moderately severe depression, (20-27) severe depression Diagnostic Studies: Relevant Imaging: MRI Spine Report MRI LUMBAR SPINE WO IVCON Collected: 01/27/2019 3:27 PM (Final result) Narrative: * * *Final Report* * * DATE OF EXAM: Jan 27 2019 3:27PM AKM 0303 - MRI LUMBAR SPINE WO IVCON / PROCEDURE REASON: M51.27 * * * * Physician Interpretation * * * * EXAMINATION: MRI LUMBAR SPINE WO IVCON CLINICAL HISTORY: Low back pain with bilateral leg radiculopathy TECHNIQUE: Routine lumbosacral spine MR protocol without gadolinium. MQ: [id number] COMPARISON: None. RESULT: Counting reference: Lumbosacral junction. For the purposes of this report, L4-5 is considered the level of the iliac crest and assume there are 5 lumbar-type vertebrae. Anatomic variant: None. Alignment: Alignment is anatomic. Bone marrow signal/fracture: No evidence of pathologic marrow infiltration. No evidence of prior fracture. Conus: The conus is within normal limits of signal intensity and morphology. Paraspinal soft tissues: Paraspinal soft tissues are within normal limits. Lower thoracic spine: Visualized lower thoracic canal and foramina are patent. T12-L1: Canal and foramina are patent. L1-L2: Canal and foramina are patent. L2-L3: Canal and foramina are patent L3-L4: There is degenerative disc disease with mild broad-based posterior disc bulging. There are congenitally shortened pedicles, ligamentum flavum thickening and facet arthritis which contribute to a mild central canal stenosis. Mildly prominent dorsal epidural fat. There is a right lateral recess stenosis. Mild bilateral foraminal stenosis. L4-L5: There appears to have been prior right hemilaminectomy. There is degenerative disc disease with loss of disc height and mild broad-based posterior disc bulging. Minimal appearing central canal stenosis. Mild left and moderate right foraminal stenosis. L5-S1: Mild degenerative disc disease with mild broad-based posterior disc bulging. There has been prior right hemilaminectomy. No central canal stenosis. Mild bilateral foraminal stenosis. Sacrum and iliac wings: The visualized sacrum and iliac wings are within normal limits. Impression: IMPRESSION: 1. L3-L4 mild appearing central canal stenosis as detailed above. 2. Multilevel mild to moderate foraminal stenosis as detailed Anatomic Thoracic/Lumbar Variant: None. L4-5 is considered the level of the iliac crest and assume there are 5 lumbar-type vertebrae. Transportation Planning Engineer: WALTER Transcribe Date/Time: Jan 30 2019 12:59P Dictated by : NEHAL GALDAMEZ MD This examination was interpreted and the report reviewed and electronically signed by: NEHAL GALDAMEZ MD on Jan 30 2019 1:09PM EST Electrodiagnostic Study (EMG): None Recent Labs: Creatinine Date Value Ref Range Status 05/30/2024 1.01 0.73 - 1.22 mg/dL Final eGFR Date Value Ref Range Status 01/31/2020 >60 >60mL/min/1.73m2 Final Comment: If the patient is , multiply the result by 1.210. No results found for: PCGLUCOSE Current Medications, Past Medical History, Past Surgical History, Family History, Social History and Review of Systems: On today's date, noted above, I have confirmed and edited as necessary, the PFSH and ROS obtained by others. Physical Exam: 02/05/25 1454 Pulse: 78 Resp: 17 SpO2: 96% Physical Exam Constitutional: Appearance: Normal appearance. HENT: Head: Normocephalic. Right Ear: External ear normal. Left Ear: External ear normal. Eyes: Extraocular Movements: Extraocular movements intact. Cardiovascular: Pulses: Normal pulses. Pulmonary: Effort: Pulmonary effort is normal. Musculoskeletal: Comments: : Bilateral hand grasps equal BUE biceps and brachioradialis reflexes intact BUE sensation intact and symmetrical BUE strength 5/5 and symmetrical Limited Cervical ROM Tenderness - none Skin: General: Skin is warm and dry. Capillary Refill: Capillary refill takes 2 to 3 seconds. Neurological: General: No focal deficit present. Mental Status: patient is alert and oriented to person, place, and time. Psychiatric: Mood and Affect: Mood normal. Behavior: Behavior normal. IMPRESSION: 64 year old male presents with complaint(s) of cervical and myofacial. TPI 75% relief - he is pleased with the procedure. Diagnoses: (M79.18) Myofascial pain (primary encounter diagnosis) (M54.2) Cervical pain PLAN: Vincent Madden would benefit from the following to reach personal goals for decreasing pain, improving function and work participation, and/or improving quality of life: Patient verbalizes understanding of home going instructions and is in agreement with the discharge plan. Patient questions were answered to their satisfaction. Medications: No Changes - Continue Current Medications Interventional Procedures: None Studies: None Functional Moravian: NONE Referrals: No additional considerations at present Follow-up: prn Depending on response to the above plan, consider: TBD Patient Education, Compliance and Clinic Policies Reviewed and/or Discussed Today: None Attribution: In addition to reviewing the information noted above, some elements copied from my most recent clinical note(s), including the physical exam (completed in entirety today), and the impression and plan sections, have been updated where appropriate. All reflect current medical decision making from today's date. Madelyn Dc APRN.CNP Pain Management [facility] * Aga Parker LPN - 02/05/2025 2:53 PM EDT Review of Systems Constitutional: Negative for activity change, chills, fever and unexpected weight change. Genitourinary: Negative for difficulty urinating. Musculoskeletal: Positive for back pain, gait problem, neck pain and neck stiffness. Negative for arthralgias, joint swelling and myalgias. Neurological: Negative for weakness, numbness and headaches. Psychiatric/Behavioral: Negative for dysphoric mood, sleep disturbance and suicidal ideas. The patient is not nervous/anxious. documented in [facility] NoteHNO ID: [id number] Author: MADELYN DC APRN.CNP Service: ? Author Type: Nurse Practitioner Type: Progress Notes Filed: 02/05/2025 14:59 Note Text: [facility] Today's Date: 02/05/2025 Name: Vincent Madden : 1960 Purpose: Follow up Chief complaint: neck pain Referring Clinician: Jim Malhotra Pertinent Past Medical History: CHF,GERD, Pertinent Past Surgeries: Defibrillator Plan at last visit: Follow up TPI Interval History: Overall pain and functional disability since last visit: Better New Complaints since last visit: No Follow up TPI today Patient reports 75 % relief from procedure with pain score of 2/10 to date. Patient reports improved quality of life and increase in ability to perform ADL's. Patient denies any adverse side effects such as nausea, vomiting, hives, fever, injection site redness/induration, headache, or new radicular symptoms. Current Pain Medications: Neuropathics: gabapentin NSAIDS: Muscle Relaxants: Flexeril Topicals: Other Prescription or OTC Pain Medications: Voltaren gel Opioids (when applicable): Anti-depressants or Mood-Stabilizers: None Anti-Coagulants: None Therapies Attended (Current or Most Recent): No Current Therapies 12/29/2024 AG SPINE COMBINATION Questionnaire GREENLIGHT Completed Date 12/29/2024 Questionnaire Opiod Risk Tool Completed Date 12/29/2024 No question data found. (All drug screens are appropriate unless indicated otherwise) Notable Events During Course of Treatment: History of Present Illness (HPI): 12/29/2024 - Initial HPI (Obtained by ).Madelyn Dc APRN.TECHNICAL SERVICES REPRESENTATIVE DURATION AND ONSET: last Wednesday for no reason - denies trauma RED FLAG SYMPTOMS: .denies PAIN DESCRIPTION: Timing: constant Character: aching, sharp Primary Location: bilateral 3 muscle groups trapezius, levator scapulae and supra scapular muscle groups Radiation: none Exacerbating factors: movement Relieving factors: nothing Interferes with: everything 12/24/24 ED visit: Is a 64-year-old male with cardiac history found to have acute cervical myofascial strain of the left paracervical musculature. No trauma no significant red flags. [place] this could be managed with medication management. Patient is administered IM Toradol, oral cyclobenzaprine. We discussed risk benefits and alternatives to trigger point injection and patient is agreeable. See procedure note above. Patient tolerated this well symptoms were modestly improved. Prescriptions to the pharmacy for oral naproxen short course, oral cyclobenzaprine. To follow-up with spine clinic if symptoms continue to persist. We discussed heat and gentle mobilization. We discussed worsening signs and symptoms that would warrant return to the emergency department. Current Pain Medications: Neuropathics: gabapentin, Topamax NSAIDS: Naprosyn Muscle Relaxants: Flexeril Topicals: Voltaren gel Other Prescription or OTC Pain Medications: Opioids (when applicable): Anti-depressants or Mood-Stabilizers: None Anti-Coagulants: None Therapies Attended (Current or Most Recent): No Current Therapies 12/29/2024 AG SPINE COMBINATION Questionnaire GREENLIGHT Completed Date 12/29/2024 Questionnaire Opiod Risk Tool Completed Date 12/29/2024 No question data found. (All drug screens are appropriate unless indicated otherwise) Treatment History: PAIN PROCEDURES: DATE PROCEDURE IMPROVEMENT To date, no interventional pain management procedures performed at this practice. MEDICATIONS Taken TO DATE (for the chief complaint(s)): Neuropathics: Neurontin (Gabapentin) NSAIDS: Naprosyn (Naproxen) Muscle Relaxants: Flexeril (Cyclobenzaprine) Topicals: Voltaren (Gel) Other Prescription or OTC Pain Medications: None Opioids: None Compliance: PDMP website checked and validated on 02/05/2025 by Madelyn Dc APRN.TECHNICAL SERVICES REPRESENTATIVE All prescriptions have been APPROPRIATELY filled. No suspicious activity was identified. 12/29/2024 AG SPINE COMBINATION Questionnaire GREENLIGHT Completed Date 12/29/2024 Questionnaire Opiod Risk Tool Completed Date 12/29/2024 (All drug screens are appropriate unless indicated otherwise) Risk Assessment: KUSUM-7: 12/29/2024 KUSUM - 7 SCORES Score 14 (0-4) minimal anxiety, (5-9) mild anxiety, (10-14) moderate anxiety, (15-21) severe anxiety PHQ-9: 12/05/2012 01/09/2020 12/29/2024 PHQ-9 Score 26 0 10 (0-4) minimal depression, (5-9) mild depression, (10-14) moderate depression, (15-19) moderately severe depression, (20-27) severe depr (more content not included)...[facility]04-21-2025 Instructions* Patient Instructions* Madelyn Dc APRN.BRANDEN - 02/05/2025 2:58 PM EDT Ice and heat as tolerated Activity as tolerated Patient verbalizes understanding of home going instructions and is in agreement documented in this encounterFulton [facility]04-[facility]25 NoteHNO ID: [id number] Author: AGA PARKER LPN Service: ? Author Type: LICENSED NURSE Type: Progress Notes Filed: 02/05/2025 14:59 Note Text: Review of Systems Constitutional: Negative for activity change, chills, fever and unexpected weight change. Genitourinary: Negative for difficulty urinating. Musculoskeletal: Positive for back pain, gait problem, neck pain and neck stiffness. Negative for arthralgias, joint swelling and myalgias. Neurological: Negative for weakness, numbness and headaches. Psychiatric/Behavioral: Negative for dysphoric mood, sleep disturbance and suicidal ideas. The patient is not nervous/anxious.[facility] 01-24-2025 NoteICD check multiple lead biventricular system with programming. ID x2 for ICD evaluation/LV vector analysis, reprogramming per request Dr Monreal. Pt reports activity tolerance decreased since gen change; also last echo showed decreased EF. MDT rep here to assist. Left chest pocket intact, without signs of infection. 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 LV vector analysis, reprogramming per rep with assist 12lead ECG for QRS duration measures. Per [employer], best configuration LV1->LV3 with QRS 120ms; threshold 1.0V/0.4ms. Also noted rate histogram blunting at upper rates (for active pt), rate response added. Interrogation shows no VHRs or mode switch episodes since last check 09-05-24. V sensing x 82 episodes; per log longest 22s. No available EGMs. Recommended replacement time 11.2 years; charge time stable. Lead impedances, sensing and pacing thresholds stable; LV output adjusted, autocapture on all leads. Counters cleared. Pt verbalizes understanding to evaluate changes over timie, call if symptoms worsen; questions answered. [place] NOTE TO PROVIDERS: CARD Flowsheets contain detailed device programming and testing data. Paceart/Interrogation PDF can be found under CARDIAC DATA AND REPORT, Scanned Documents section.[id number] Telephone encounter Note* Telephone Encounter - Flori Dhillon RN - 01/19/2025 8:28 AM EDT Spoke with Mrs. She reports she is going to check on getting entresto and jardiance filled in [place]. Pt will check to make sure cost is acceptable. She will call when she needs written prescriptions. Flori Dhillon RN [facility]04-04-2025 Miscellaneous Notes* Telephone Encounter - Flori Dhillon RN - 01/19/2025 8:28 AM EDT Spoke with Mrs. She reports she is going to check on getting entresto and jardiance filled in [place]. Pt will check to make sure cost is acceptable. She will call when she needs written prescriptions. Flori Dhillon RN * Telephone Encounter - Flori Dhillon RN - 01/19/2025 8:24 AM EDT Images from the original note were not included. Tomasz Louis MD You16 hours ago (4:08 PM) Completely correct thank you-1 thing they can also check on is the cost of Farxiga 10 mg daily instead of Jardiance. Usually the cost is similar but if it happens to be significant less expensive then we could try that instead dac * Telephone Encounter - Flori Dhillon RN - 01/18/2025 2:30 PM EDT calls to report they can afford the Entresto but the jardiance is over $600 month. voices understanding pt is to stop lisinopril and start entresto 3 days later. Flori Dhillon RN documented in this encounterFult[facility]04-[facility] Telephone encounter Note * Telephone Encounter - Flori Dhillon RN - 01/19/2025 8:24 AM EDT Images from the original note were not included. Tomasz Louis MD You16 hours ago (4:08 PM) Completely correct thank you-1 thing they can also check on is the cost of Farxiga 10 mg daily instead of Jardiance. Usually the cost is similar but if it happens to be significant less expensive then we could try that instead dac [facility]04-03-[facility]25 Telephone encounter Note* Telephone Encounter - Flori Dhillon RN - 01/18/2025 2:33 PM EDT Patient's request for medication is as follows: Requested Prescriptions Pending Prescriptions Disp Refills carvedilol (COREG) 12.5 mg tablet 180 tablet 3 Sig: Take 1 tablet by mouth two times a day. Last visit 01/16/25. Next visit per recall list for January 2026. Prescription(s) as above. Please process accordingly. Flori Dhillon RN [facility]04-03-2025 Miscellaneous Notes* Telephone Encounter - Flori Dhillon RN - 01/18/2025 2:33 PM EDT Patient's request for medication is as follows: Requested Prescriptions Pending Prescriptions Disp Refills carvedilol (COREG) 12.5 mg tablet 180 tablet 3 Sig: Take 1 tablet by mouth two times a day. Last visit 01/16/25. Next visit per recall list for January 2026. Prescription(s) as above. Please process accordingly. Flori Dhillon RN documented in this encounterFulton [facility] Center04-03-2025 Telephone encounter Note * Telephone Encounter - Flori Dhillon RN - 01/18/2025 2:30 PM EDT calls to report they can afford the Entresto but the jardiance is over $600 month. voices understanding pt is to stop lisinopril and start entresto 3 days later. Flori Dhillon RN [facility]04-02-2025 Telephone encounter Note* Telephone Encounter - Dominic Bledsoe RN - 01/17/2025 1:39 PM EDT [facility] received a referral from Dr. Louis on 01/16/25 to schedule patient with theclinic. The clinic reached out to the patient by phone, MyChart and letter asking him to contact the clinicto schedule an appointment. Patient's returned call. Phone visit scheduled 02/08 (her request) and ELO appointment 02/14/25. [facility]04-02-2025 Miscellaneous Notes* Telephone Encounter - Dominic Bledsoe RN - 01/17/2025 1:39 PM EDT [facility] received a referral from Dr. Louis on 01/16/25 to schedule patient with theclinic. The clinic reached out to the patient by phone, MyChart and letter asking him to contact the clinicto schedule an appointment. Patient's returned call. Phone visit scheduled 02/08 (her request) and ELO appointment 02/14/25. [facility] History of Present illness Narrative* Madelyn Dc APRN.TECHNICAL SERVICES REPRESENTATIVE - 01/16/2025 2:15 PM EDT Images from the original note were not included. [facility] Phone: Today's Date: 01/16/2025 Patient Name: Vincent Madden : 1960 Subjective: TPI HPI: Vincent Madden is a 64 year old male who presents for follow up evaluation Myofacial pain H&P done 01/16/2025 We will plan on the TPIS for the myofascial pain Risks, benefits, and alternatives to the procedure were discussed with the patient. The patient waseducated about special protocols to mitigate any exposure or infection risk in our facility and patient wishes to proceed with the procedure. GENERAL: No weight loss, malaise or fevers HEENT: Negative for frequent or significant headaches, No changes in hearing or vision, no nose bleeds or other nasal problems NECK: Negative for lumps, goiter, pain and significant neck swelling RESPIRATORY: Negative for cough, hemoptysis, wheezing, COPD, dyspnea or shortness of breath CARDIOVASCULAR: Negative for chest pain, leg swelling, hypertension, CHF or palpitations GI: No nausea, vomiting, or diarrhea : No history of dysuria, frequency or incontinence MUSCULOSKELETAL: Negative for joint pain or swelling, back pain or muscle pain SKIN: Negative for lesions, rash, and itching PSYCH: Negative for sleep disturbance, mood disorder and recent psychosocial stressors HEMATOLOGY/LYMPHOLOGY: Negative for prolonged bleeding, bruising easily or swollen nodes ENDOCRINE: Negative for cold or heat intolerance, polyuria, polydipsia and goiter NEURO: No history of headaches, syncope, paralysis, seizures or tremors Pain Assessment: 01/16/2025 01/16/2025 INTAKE PAIN ASSESSMENT Are you having pain associated with your visit today? No Yes, Provider notified Pain Scales Verbal (Numeric Rating or Visual Analog Scale) Pain Level 0 OARRS Report: PDMP website checked and validated. All prescriptions have been APPROPRIATELY filled. No suspiciousactivity was identified. 01/15/2025 by Madelyn Dc APRN.BRANDEN Past Medical History: PAST MEDICAL HISTORY Diagnosis Date Abnormal EKG Atherosclerotic heart disease of [place] coronary artery without angina pectoris Automatic implantable cardioverter-defibrillator in situ BBB (bundle branch block) Benign neoplasm of colon Cardiomegaly Cardiomyopathy (HCC) NIDCM CHF (congestive heart failure) systolic 12/02/2012 Chronic pain of left thumb Coronary arteriosclerosis Dilated cardiomyopathy (HCC) 12/02/2012 Latest Echo 05/2016 with EF 40% can be found in Care Everywhere Dyspnea Epigastric pain Fatigue GERD (gastroesophageal reflux disease) Hiatal hernia History of colonic polyps 08/30/2017 Added automatically from request for surgery [id number] HTN (hypertension) 11/19/2023 LBBB (left bundle branch block) Left ventricular failure (HCC) Obesity 12/05/2012 Palpitations SOB (shortness of breath) pt stated before pacemaker and defib placed Tendinitis of right rotator cuff 09/02/2020 Past Surgical History: PAST SURGICAL HISTORY Procedure Laterality Date CARDIAC CATH Left 06/2011 COLONOSCOPY SCREENING N/A 12/09/2023 COLONOSCOPY W/BIOPSY SINGLE/MULTIPLE 12/24/2017 EGD TRANSORAL BIOPSY SINGLE/MULTIPLE 12/24/2017 EGD W/O BRSH SPEC VARICIES INJ N/A 12/09/2023 LOW BACK DISK SURGERY PACEMAKER 02/26/2016 Medtronic pacemaker and defib PAST SURGICAL HISTORY OF pin removed from the left thumb Family History: FAMILY HISTORY Problem Relation Age of Onset Coronary Artery Disease Mother a. CABG, carotid artery endarterectomy bilateral Breast Cancer Mother Heart Mother Coronary Artery Disease Father a. CABG, valve replacement Heart Father None Brother 3 brothers and one sister a.OK Cancer Brother one brother a. Colon Cancer Brother other (scd) Other uncle and aunt scd other (Heart Attack) Other Heart Paternal Uncle x2 Heart Paternal Aunt Social History: Social History Tobacco Use Smoking status: Former Current packs/day: 0.00 Average packs/day: 1 pack/day for 10.0 years (10.0 ttl pk-yrs) Types: Cigarettes Start date: 12/05/1996 Quit date: 12/05/2006 Years since quittin.1 Smokeless tobacco: Never Vaping Use Vaping status: Never Used Substance Use Topics Alcohol use: No Comment: heavy alcohol consumption and quit in 1987 Drug use: No Allergies: ALLERGIES Allergen Reactions Buprenorphine Other: See Comments Current Medications: sacubitril-valsartan (ENTRESTO) 24-26 mg tablet Take 1 tablet by mouth two times a day. First dose January 19 empagliflozin (JARDIANCE) 10 mg tablet Take 1 tablet by mouth daily with breakfast. cyclobenzaprine (FLEXERIL) 5 mg tablet Take 1 tablet by mouth three times a day as needed for muscle spasm. carvedilol (COREG) 12.5 mg tablet Take 1 tablet by mouth twice daily Tadalafil (CIALIS) 5 mg tablet Take 1 tablet by mouth once daily. Take 1 tablet by mouth daily esomeprazole (NEXIUM) 40 mg capsule Take 1 capsule by mouth once daily. furosemide (LASIX) 40 mg tablet Take 1 tablet by mouth once daily. spironolactone (ALDACTONE) 25 mg tablet Take 1 tablet by mouth once daily. atorvastatin (LIPITOR) 20 mg tablet Take 1 tablet by mouth once daily. diclofenac (VOLTAREN) 1 % topical gel Apply 2 g to affected area four times daily. meclizine (ANTIVERT) 25 mg tab Take 1 tablet by mouth three times daily as needed. topiramate (TOPAMAX) 100 mg tablet Take 1 tablet by mouth daily at bedtime. gabapentin (NEURONTIN) 600 mg tablet Take 600 mg by mouth three times a day. aspirin, enteric coated (ADULT LOW DOSE ASPIRIN) 81 mg EC tablet Take 1 tablet by mouth once daily. I have confirmed and edited as necessary, the PFSH and ROS obtained by others. No question data found. Objective: Pulse 73 Resp 17 SpO2 96% Physical Exam Constitutional: Appearance: Normal appearance. HENT: Head: Normocephalic. Right Ear: External ear normal. Left Ear: External ear normal. Eyes: Extraocular Movements: Extraocular movements intact. Pulmonary: Effort: Pulmonary effort is normal. Musculoskeletal: Comments: BUE strength 5/5 BUE sensation intact and symmetrical Increased muscle tone bilateral trapezius, levator scapulae and supra scapular muscle groups Skin: General: Skin is warm and dry. Neurological: General: No focal deficit present. Mental Status: She is alert and oriented to person, place, and time. Psychiatric: Mood and Affect: Mood normal. Behavior: Behavior normal. Imaging: MRI Spine Report MRI LUMBAR SPINE WO IVCON Collected: 01/27/2019 3:27 PM (Final result) Narrative: * * *Final Report* * * DATE OF EXAM: Jan 27 2019 3:27PM AKM [id number] - MRI LUMBAR SPINE WO IVCON / PROCEDURE REASON: M51.27 * * * * Physician Interpretation * * * * EXAMINATION: MRI LUMBAR SPINE WO IVCON CLINICAL HISTORY: Low back pain with bilateral leg radiculopathy TECHNIQUE: Routine lumbosacral spine MR protocol without gadolinium. MQ: [id number] COMPARISON: None. RESULT: Counting reference: Lumbosacral junction. For the purposes of this report, L4-5 is considered the level of the iliac crest and assume there are 5 lumbar-type vertebrae. Anatomic variant: None. Alignment: Alignment is anatomic. Bone marrow signal/fracture: No evidence of pathologic marrow infiltration. No evidence of prior fracture. Conus: The conus is within normal limits of signal intensity and morphology. Paraspinal soft tissues: Paraspinal soft tissues are within normal limits. Lower thoracic spine: Visualized lower thoracic canal and foramina are patent. T12-L1: Canal and foramina are patent. L1-L2: Canal and foramina are patent. L2-L3: Canal and foramina are patent L3-L4: There is degenerative disc disease with mild broad-based posterior disc bulging. There are congenitally shortened pedicles, ligamentum flavum thickening and facet arthritis which contribute to a mild central canal stenosis. Mildly prominent dorsal epidural fat. There is a right lateral recess stenosis. Mild bilateral foraminal stenosis. L4-L5: There appears to have been prior right hemilaminectomy. There is degenerative disc disease with loss of disc height and mild broad-based posterior disc bulging. Minimal appearing central canal stenosis. Mild left and moderate right foraminal stenosis. L5-S1: Mild degenerative disc disease with mild broad-based posterior disc bulging. There has been prior right hemilaminectomy. No central canal stenosis. Mild bilateral foraminal stenosis. Sacrum and iliac wings: The visualized sacrum and iliac wings are within normal limits. Impression: IMPRESSION: 1. L3-L4 mild appearing central canal stenosis as detailed above. 2. Multilevel mild to moderate foraminal stenosis as detailed Anatomic Thoracic/Lumbar Variant: None. L4-5 is considered the level of the iliac crest and assume there are 5 lumbar-type vertebrae. Transportation Planning Engineer: WALTER Transcribe Date/Time: Jan 30 2019 12:59P Dictated by : NEHAL GALDAMEZ MD This examination was interpreted and the report reviewed and electronically signed by: NEHAL GALDAMEZ MD on Jan 30 2019 1:09PM EST ASSESSMENT/PLAN: 1. Myofascial pain - ICD9: 729.1, ICD10: M79.18 TPI > 3 muscle groups with 0.25% bupivacaine Prior TPI provided greater than 50% in pain for over 4-6 weeks with improved level of function. We will be using 0.25% bupivacaine in these areas bilateral 3 muscle groups trapezius, levator scapulaeand supra scapular muscle groups We will plan for 1 session per month x 3 months. Instructions Procedure: Other: trigger point injection Post Procedure Instructions: You may resume normal activities the day after the procedure, as tolerated., Pain should gradually subside over the next 2-3 weeks., Apply cold compresses to injection site if needed. and Increased pain the day after the procedure may occur. Please increase water intake for the next 24 hours as this will help the soreness. If you have any of the following signs or symptoms, please call our office at Fever and/or chills Swelling and/or drainage from injection site New pain that is different than your normal pain (other than soreness at the site of the procedure) Stiff neck Shortness of breath Severe increase in pain Motor dysfunctions, such as difficulty walking, bowel or bladder dysfunction and/or incontinence Headache that is severe, light sensitive or develops when changing positions (positional headache) Nausea and/or vomiting accompanied by headache that started 24-48 hours after the procedure If you have any emergent concerns, please call 911 or go to your local emergency room. Please also contact our office to let us know you will be seeking emergency care and why. No follow-ups on file. Patient verbalizes understanding of home going instructions and is in agreement with the discharge plan. Patient questions were answered to their satisfaction. Some elements may be copied from a previous office note and have been reviewed/updated where appropriate. All portions reflect current medical decision making from today Madelyn Dc APRN.CNP * Aga Parker LPN - 01/16/2025 2:02 PM EDT Review of Systems Constitutional: Negative for activity change, chills, fever and unexpected weight change. Genitourinary: Negative for difficulty urinating. Musculoskeletal: Positive for back pain. Negative for arthralgias, gait problem, joint swelling, myalgias and neck pain. Neurological: Positive for headaches. Negative for weakness and numbness. Psychiatric/Behavioral: Negative for dysphoric mood, sleep disturbance and suicidal ideas. The patient is not nervous/anxious. [facility] NoteHNO ID: [id number] Author: MADELYN DC APRN.CNP Service: ? Author Type: Nurse Practitioner Type: Procedures Filed: 01/16/2025 14:13 Note Text: The HANDP completed on 01/16/2025 I have reviewed the history and physical and examined the patient and there are no changes unless noted below: No update and/or changes to Vincent Madden history and physical. Madelyn Dc APRN.CNP Procedure time out completed to confirm patient's name, date of , allergies and procedure being performed. Time completed: 1404 Procedure Start Time: 1408 Procedure End Time: 1415 History of Present Illness: This is a 64 year old year old male presents here today for trigger points. PAST MEDICAL HISTORY Diagnosis Date Abnormal EKG Atherosclerotic heart disease of [place] coronary artery without angina pectoris Automatic implantable cardioverter-defibrillator in situ BBB (bundle branch block) Benign neoplasm of colon Cardiomegaly Cardiomyopathy (HCC) NIDCM CHF (congestive heart failure) systolic 12/02/2012 Chronic pain of left thumb Coronary arteriosclerosis Dilated cardiomyopathy (HCC) 12/02/2012 Latest Echo 05/2016 with EF 40% can be found in Care Everywhere Dyspnea Epigastric pain Fatigue GERD (gastroesophageal reflux disease) Hiatal hernia History of colonic polyps 08/30/2017 Added automatically from request for surgery [id number] HTN (hypertension) 11/19/2023 LBBB (left bundle branch block) Left ventricular failure (HCC) Obesity 12/05/2012 Palpitations SOB (shortness of breath) pt stated before pacemaker and defib placed Tendinitis of right rotator cuff 09/02/2020 PAST SURGICAL HISTORY Procedure Laterality Date CARDIAC CATH Left 06/2011 COLONOSCOPY SCREENING N/A 12/09/2023 COLONOSCOPY W/BIOPSY SINGLE/MULTIPLE 12/24/2017 EGD TRANSORAL BIOPSY SINGLE/MULTIPLE 12/24/2017 EGD W/O BRSH SPEC VARICIES INJ N/A 12/09/2023 LOW BACK DISK SURGERY PACEMAKER 02/26/2016 Medtronic pacemaker and defib PAST SURGICAL HISTORY OF pin removed from the left thumb ALLERGIES Allergen Reactions Buprenorphine Other: See Comments sacubitril-valsartan (ENTRESTO) 24-26 mg tabletTake 1 tablet by mouth two times a day. First dose Januaryisp: 60 tabletRfl: 11 empagliflozin (JARDIANCE) 10 mg tabletTake 1 tablet by mouth daily with breakfast.Disp: 30 tabletRfl: 11 cyclobenzaprine (FLEXERIL) 5 mg tabletTake 1 tablet by mouth three times a day as needed for muscle spasm.Disp: 15 tabletRfl: 0 carvedilol (COREG) 12.5 mg tabletTake 1 tablet by mouth twice dailyDisp: 180 tabletRfl: 3 Tadalafil (CIALIS) 5 mg tabletTake 1 tablet by mouth once daily. Take 1 tablet by mouth dailyDisp: 30 tabletRfl: 11 esomeprazole (NEXIUM) 40 mg capsuleTake 1 capsule by mouth once daily.Disp: 30 capsuleRfl: 11 furosemide (LASIX) 40 mg tabletTake 1 tablet by mouth once daily.Disp: 90 tabletRfl: 0 spironolactone (ALDACTONE) 25 mg tabletTake 1 tablet by mouth once daily.Disp: 90 tabletRfl: 0 atorvastatin (LIPITOR) 20 mg tabletTake 1 tablet by mouth once daily.Disp: 90 tabletRfl: 0 diclofenac (VOLTAREN) 1 % topical gelApply 2 g to affected area four times daily.Disp: 450 gRfl: 0 meclizine (ANTIVERT) 25 mg tabTake 1 tablet by mouth three times daily as needed.Disp: 90 tabletRfl: 2 topiramate (TOPAMAX) 100 mg tabletTake 1 tablet by mouth daily at bedtime.Disp: 30 tabletRfl: 4 gabapentin (NEURONTIN) 600 mg tabletTake 600 mg by mouth three times a day.Disp: Rfl: aspirin, enteric coated (ADULT LOW DOSE ASPIRIN) 81 mg EC tabletTake 1 tablet by mouth once daily.Disp: Rfl: 0 Pulse 73 Resp 17 SpO2 96% PROCEDURE: Joint Injection/Aspiration: Consent was obtained. Risk and benefits were explained. Questions were encouraged and answered. Patient wishes to proceed. Procedure to be Performed: TPI Sign In: A Moment of CARE was completed. Personnel directly involved with the procedure wore the appropriate PPE (Personal Protective Equipment). Patient/Surrogate Stated/Verified: PATIENT VERIFIED(optional for EMERGENT procedures): Patient name, Date of , Relevant allergies and The intended procedure Time Out Communication: Intended patient and procedure match the source documents. Consent documented and matches the intended procedure. Sign Out: SIGN OUT (optional for EMERGENT procedures): No specimen collected. Madelyn Dc APRN.TECHNICAL SERVICES REPRESENTATIVE Trigger Point (8 ) bilateral 3 muscle groups trapezius, levator scapulae and supra scapular muscle groups 8 trigger point injection was performed with 1 mL(s) of bupivacaine 0.25% for anesthetic. A 25 gauge needle was used. Bupivacaine: 0.25% [facility]: [place] [facility] [place]: [id number] LOT: [id number] EXP: 2024 Indication for Procedure: myofacial pain Post Procedure: The patient tolerated the treatment well. ASSESSMENT/PLAN: 1. Myofascial pain - ICD9: 729.1, ICD10: M79.18 Instructions Procedure: Other: trigger point injection Post Procedure Instructio (more content not included)...[facility] [id number] NoteHNO ID: [id number] Author: MADELYN DC APRN.CNP Service: ? Author Type: Nurse Practitioner Type: Progress Notes Filed: 01/16/2025 14:13 Note Text: [facility] Phone: Today's Date: 01/16/2025 Patient Name: Vincent Madden : 1960 Subjective: TPI HPI: Vincent Madden is a 64 year old male who presents for follow up evaluation Myofacial pain HANDP done 01/16/2025 We will plan on the TPIS for the myofascial pain Risks, benefits, and alternatives to the procedure were discussed with the patient. The patient was educated about special protocols to mitigate any exposure or infection risk in our facility and patient wishes to proceed with the procedure. GENERAL: No weight loss, malaise or fevers HEENT: Negative for frequent or significant headaches, No changes in hearing or vision, no nose bleeds or other nasal problems NECK: Negative for lumps, goiter, pain and significant neck swelling RESPIRATORY: Negative for cough, hemoptysis, wheezing, COPD, dyspnea or shortness of breath CARDIOVASCULAR: Negative for chest pain, leg swelling, hypertension, CHF or palpitations GI: No nausea, vomiting, or diarrhea : No history of dysuria, frequency or incontinence MUSCULOSKELETAL: Negative for joint pain or swelling, back pain or muscle pain SKIN: Negative for lesions, rash, and itching PSYCH: Negative for sleep disturbance, mood disorder and recent psychosocial stressors HEMATOLOGY/LYMPHOLOGY: Negative for prolonged bleeding, bruising easily or swollen nodes ENDOCRINE: Negative for cold or heat intolerance, polyuria, polydipsia and goiter NEURO: No history of headaches, syncope, paralysis, seizures or tremors Pain Assessment: 01/16/2025 01/16/2025 INTAKE PAIN ASSESSMENT Are you having pain associated with your visit today? No Yes, Provider notified Pain Scales Verbal (Numeric Rating or Visual Analog Scale) Pain Level 0 OARRS Report: PDMP website checked and validated. All prescriptions have been APPROPRIATELY filled. No suspicious activity was identified. 01/15/2025 by Madelyn Dapoz, TECHNOLOGY INTERN.TECHNICAL SERVICES REPRESENTATIVE Past Medical History: PAST MEDICAL HISTORY Diagnosis Date Abnormal EKG Atherosclerotic heart disease of [place] coronary artery without angina pectoris Automatic implantable cardioverter-defibrillator in situ BBB (bundle branch block) Benign neoplasm of colon Cardiomegaly Cardiomyopathy (HCC) NIDCM CHF (congestive heart failure) systolic 12/02/2012 Chronic pain of left thumb Coronary arteriosclerosis Dilated cardiomyopathy (HCC) 12/02/2012 Latest Echo 05/2016 with EF 40% can be found in Care Everywhere Dyspnea Epigastric pain Fatigue GERD (gastroesophageal reflux disease) Hiatal hernia History of colonic polyps 08/30/2017 Added automatically from request for surgery [id number] HTN (hypertension) 11/19/2023 LBBB (left bundle branch block) Left ventricular failure (HCC) Obesity 12/05/2012 Palpitations SOB (shortness of breath) pt stated before pacemaker and defib placed Tendinitis of right rotator cuff 09/02/2020 Past Surgical History: PAST SURGICAL HISTORY Procedure Laterality Date CARDIAC CATH Left 06/2011 COLONOSCOPY SCREENING N/A 12/09/2023 COLONOSCOPY W/BIOPSY SINGLE/MULTIPLE 12/24/2017 EGD TRANSORAL BIOPSY SINGLE/MULTIPLE 12/24/2017 EGD W/O [facility] SPEC VARICIES INJ N/A 12/09/2023 LOW BACK DISK SURGERY PACEMAKER 02/26/2016 [employer]tr[employer] pacemaker and defib PAST SURGICAL HISTORY OF pin removed from the left thumb Family History: FAMILY HISTORY Problem Relation Age of Onset Coronary Artery Disease Mother a. CABG, carotid artery endarterectomy bilateral Breast Cancer Mother Heart Mother Coronary Artery Disease Father a. CABG, valve replacement Heart Father None Brother 3 brothers and one sister a.OK Cancer Brother one brother a. Colon Cancer Brother other (scd) Other uncle and aunt scd other (Heart Attack) Other Heart Paternal Uncle x2 Heart Paternal Aunt Social History: Social History Tobacco Use Smoking status: Former Current packs/day: 0.00 Average packs/day: 1 pack/day for 10.0 years (10.0 ttl pk-yrs) Types: Cigarettes Start date: 12/05/1996 Quit date: 12/05/2006 Years since quittin.1 Smokeless tobacco: Never Vaping Use Vaping status: Never Used Substance Use Topics Alcohol use: No Comment: heavy alcohol consumption and quit in 1987 Drug use: No Allergies: ALLERGIES Allergen Reactions Buprenorphine Other: See Comments Current Medications: sacubitril-valsartan (ENTRESTO) 24-26 mg tablet Take 1 tablet by mouth two times a day. First dose January 19 empagliflozin (JARDIANCE) 10 mg tablet Take 1 tablet by mouth daily with breakfast. cyclobenzaprine (FLEXERIL) 5 mg tablet Take 1 tablet by mouth three times a day as needed for muscle spasm. carvedilol (COREG) 12.5 mg tablet Take (more content not included)...[facility]04-01-2025 Procedure note* Madelyn Dc APRN.CNP - 01/16/2025 2:15 PM EDT The H&P completed on 01/16/2025 I have reviewed the history and physical and examined the patient and there are no changes unless noted below: No update and/or changes to Vincent Madden history and physical. Madelyn Dc APRN.CNP Procedure time out completed to confirm patient's name, date of , allergies and procedure being performed. Time completed: 140 Procedure Start Time: 140 Procedure End Time: 1415 History of Present Illness: This is a 64 year old year old male presents here today for trigger points. PAST MEDICAL HISTORY Diagnosis Date Abnormal EKG Atherosclerotic heart disease of [place] coronary artery without angina pectoris Automatic implantable cardioverter-defibrillator in situ BBB (bundle branch block) Benign neoplasm of colon Cardiomegaly Cardiomyopathy (HCC) NIDCM CHF (congestive heart failure) systolic 12/02/2012 Chronic pain of left thumb Coronary arteriosclerosis Dilated cardiomyopathy (HCC) 12/02/2012 Latest Echo 05/2016 with EF 40% can be found in Care Everywhere Dyspnea Epigastric pain Fatigue GERD (gastroesophageal reflux disease) Hiatal hernia History of colonic polyps 08/30/2017 Added automatically from request for surgery [id number] HTN (hypertension) 11/19/2023 LBBB (left bundle branch block) Left ventricular failure (HCC) Obesity 12/05/2012 Palpitations SOB (shortness of breath) pt stated before pacemaker and defib placed Tendinitis of right rotator cuff 09/02/2020 PAST SURGICAL HISTORY Procedure Laterality Date CARDIAC CATH Left 06/2011 COLONOSCOPY SCREENING N/A 12/09/2023 COLONOSCOPY W/BIOPSY SINGLE/MULTIPLE 12/24/2017 EGD TRANSORAL BIOPSY SINGLE/MULTIPLE 12/24/2017 EGD W/O [facility] SPEC VARICIES INJ N/A 12/09/2023 LOW BACK DISK SURGERY PACEMAKER 02/26/2016 [employer]tr[employer] pacemaker and defib PAST SURGICAL HISTORY OF pin removed from the left thumb ALLERGIES Allergen Reactions Buprenorphine Other: See Comments sacubitril-valsartan (ENTRESTO) 24-26 mg tablet^Take 1 tablet by mouth two times a day. First dose January 19^Disp: 60 tablet^Rfl: 11 empagliflozin (JARDIANCE) 10 mg tablet^Take 1 tablet by mouth daily with breakfast.^Disp: 30 tablet^Rfl: 11 cyclobenzaprine (FLEXERIL) 5 mg tablet^Take 1 tablet by mouth three times a day as needed for muscle spasm.^Disp: 15 tablet^Rfl: 0 carvedilol (COREG) 12.5 mg tablet^Take 1 tablet by mouth twice daily^Disp: 180 tablet^Rfl: 3 Tadalafil (CIALIS) 5 mg tablet^Take 1 tablet by mouth once daily. Take 1 tablet by mouth daily^Disp: 30 tablet^Rfl: 11 esomeprazole (NEXIUM) 40 mg capsule^Take 1 capsule by mouth once daily.^Disp: 30 capsule^Rfl: 11 furosemide (LASIX) 40 mg tablet^Take 1 tablet by mouth once daily.^Disp: 90 tablet^Rfl: 0 spironolactone (ALDACTONE) 25 mg tablet^Take 1 tablet by mouth once daily.^Disp: 90 tablet^Rfl: 0 atorvastatin (LIPITOR) 20 mg tablet^Take 1 tablet by mouth once daily.^Disp: 90 tablet^Rfl: 0 diclofenac (VOLTAREN) 1 % topical gel^Apply 2 g to affected area four times daily.^Disp: 450 g^Rfl:0 meclizine (ANTIVERT) 25 mg tab^Take 1 tablet by mouth three times daily as needed.^Disp: 90 tablet^Rfl: 2 topiramate (TOPAMAX) 100 mg tablet^Take 1 tablet by mouth daily at bedtime.^Disp: 30 tablet^Rfl: 4 gabapentin (NEURONTIN) 600 mg tablet^Take 600 mg by mouth three times a day.^Disp: ^Rfl: aspirin, enteric coated (ADULT LOW DOSE ASPIRIN) 81 mg EC tablet^Take 1 tablet by mouth once daily.^Disp: ^Rfl: 0 Pulse 73 Resp 17 SpO2 96% PROCEDURE: Joint Injection/Aspiration: Consent was obtained. Risk and benefits were explained. Questions were encouraged and answered. Patient wishes to proceed. Procedure to be Performed: TPI Sign In: A Moment of CARE was completed. Personnel directly involved with the procedure wore the appropriate PPE (Personal Protective Equipment). Patient/Surrogate Stated/Verified: PATIENT VERIFIED(optional for EMERGENT procedures): Patient name, Date of , Relevant allergies and The intended procedure Time Out Communication: Intended patient and procedure match the source documents. Consent documented and matches the intended procedure. Sign Out: SIGN OUT (optional for EMERGENT procedures): No specimen collected. Madelyn Dc APRN.TECHNICAL SERVICES REPRESENTATIVE Trigger Point (8 ) bilateral 3 muscle groups trapezius, levator scapulae and supra scapular muscle groups 8 trigger point injection was performed with 1 mL(s) of bupivacaine 0.25% for anesthetic. A 25 gauge needle was used. Bupivacaine: 0.25% [facility]: [facility]: [id number] LOT: [id number] EXP: 2024 Indication for Procedure: myofacial pain Post Procedure: The patient tolerated the treatment well. ASSESSMENT/PLAN: 1. Myofascial pain - ICD9: 729.1, ICD10: M79.18 Instructions Procedure: Other: trigger point injection Post Procedure Instructions: You may resume normal activities the day after the procedure, as tolerated., Pain should gradually subside over the next 2-3 weeks., Apply cold compresses to injection site if needed. and Increased pain the day after the procedure may occur. Please increase water intake for the next 24 hours as this will help the soreness. If you have any of the following signs or symptoms, please call our office at Fever and/or chills Swelling and/or drainage from injection site New pain that is different than your normal pain (other than soreness at the site of the procedure) Stiff neck Shortness of breath Severe increase in pain Motor dysfunctions, such as difficulty walking, bowel or bladder dysfunction and/or incontinence Headache that is severe, light sensitive or develops when changing positions (positional headache) Nausea and/or vomiting accompanied by headache that started 24-48 hours after the procedure If you have any emergent concerns, please call 911 or go to your local emergency room. Please also contact our office to let us know you will be seeking emergency care and why. Patient verbalizes understanding of home going instructions and is in agreement with the discharge plan. Patient questions were answered to their satisfaction. Some elements may be copied from a previous office note and have been reviewed/updated where appropriate. All portions reflect current medical decision making from today Madelyn Dc APRN.CNP [facility]04-01-2025 Procedure note* Madelyn Dc APRN.CNP - 01/16/2025 2:15 PM EDT The H&P completed on 01/16/2025 I have reviewed the history and physical and examined the patient and there are no changes unless noted below: No update and/or changes to Vincent Madden history and physical. Madelyn Dc APRN.CNP Procedure time out completed to confirm patient's name, date of , allergies and procedure being performed. Time completed: 1404 Procedure Start Time: 1408 Procedure End Time: 1415 History of Present Illness: This is a 64 year old year old male presents here today for trigger points. PAST MEDICAL HISTORY Diagnosis Date Abnormal EKG Atherosclerotic heart disease of [place] coronary artery without angina pectoris Automatic implantable cardioverter-defibrillator in situ BBB (bundle branch block) Benign neoplasm of colon Cardiomegaly Cardiomyopathy (HCC) NIDCM CHF (congestive heart failure) systolic 12/02/2012 Chronic pain of left thumb Coronary arteriosclerosis Dilated cardiomyopathy (HCC) 12/02/2012 Latest Echo 05/2016 with EF 40% can be found in Care Everywhere Dyspnea Epigastric pain Fatigue GERD (gastroesophageal reflux disease) Hiatal hernia History of colonic polyps 08/30/2017 Added automatically from request for surgery [id number] HTN (hypertension) 11/19/2023 LBBB (left bundle branch block) Left ventricular failure (HCC) Obesity 12/05/2012 Palpitations SOB (shortness of breath) pt stated before pacemaker and defib placed Tendinitis of right rotator cuff 09/02/2020 PAST SURGICAL HISTORY Procedure Laterality Date CARDIAC CATH Left 06/2011 COLONOSCOPY SCREENING N/A 12/09/2023 COLONOSCOPY W/BIOPSY SINGLE/MULTIPLE 12/24/2017 EGD TRANSORAL BIOPSY SINGLE/MULTIPLE 12/24/2017 EGD W/O BRSH SPEC VARICIES INJ N/A 12/09/2023 LOW BACK DISK SURGERY PACEMAKER 02/26/2016 Medtronic pacemaker and defib PAST SURGICAL HISTORY OF pin removed from the left thumb ALLERGIES Allergen Reactions Buprenorphine Other: See Comments sacubitril-valsartan (ENTRESTO) 24-26 mg tablet^Take 1 tablet by mouth two times a day. First dose January 19^Disp: 60 tablet^Rfl: 11 empagliflozin (JARDIANCE) 10 mg tablet^Take 1 tablet by mouth daily with breakfast.^Disp: 30 tablet^Rfl: 11 cyclobenzaprine (FLEXERIL) 5 mg tablet^Take 1 tablet by mouth three times a day as needed for muscle spasm.^Disp: 15 tablet^Rfl: 0 carvedilol (COREG) 12.5 mg tablet^Take 1 tablet by mouth twice daily^Disp: 180 tablet^Rfl: 3 Tadalafil (CIALIS) 5 mg tablet^Take 1 tablet by mouth once daily. Take 1 tablet by mouth daily^Disp: 30 tablet^Rfl: 11 esomeprazole (NEXIUM) 40 mg capsule^Take 1 capsule by mouth once daily.^Disp: 30 capsule^Rfl: 11 furosemide (LASIX) 40 mg tablet^Take 1 tablet by mouth once daily.^Disp: 90 tablet^Rfl: 0 spironolactone (ALDACTONE) 25 mg tablet^Take 1 tablet by mouth once daily.^Disp: 90 tablet^Rfl: 0 atorvastatin (LIPITOR) 20 mg tablet^Take 1 tablet by mouth once daily.^Disp: 90 tablet^Rfl: 0 diclofenac (VOLTAREN) 1 % topical gel^Apply 2 g to affected area four times daily.^Disp: 450 g^Rfl:0 meclizine (ANTIVERT) 25 mg tab^Take 1 tablet by mouth three times daily as needed.^Disp: 90 tablet^Rfl: 2 topiramate (TOPAMAX) 100 mg tablet^Take 1 tablet by mouth daily at bedtime.^Disp: 30 tablet^Rfl: 4 gabapentin (NEURONTIN) 600 mg tablet^Take 600 mg by mouth three times a day.^Disp: ^Rfl: aspirin, enteric coated (ADULT LOW DOSE ASPIRIN) 81 mg EC tablet^Take 1 tablet by mouth once daily.^Disp: ^Rfl: 0 Pulse 73 Resp 17 SpO2 96% PROCEDURE: Joint Injection/Aspiration: Consent was obtained. Risk and benefits were explained. Questions were encouraged and answered. Patient wishes to proceed. Procedure to be Performed: TPI Sign In: A Moment of CARE was completed. Personnel directly involved with the procedure wore the appropriate PPE (Personal Protective Equipment). Patient/Surrogate Stated/Verified: PATIENT VERIFIED(optional for EMERGENT procedures): Patient name, Date of , Relevant allergies and The intended procedure Time Out Communication: Intended patient and procedure match the source documents. Consent documented and matches the intended procedure. Sign Out: SIGN OUT (optional for EMERGENT procedures): No specimen collected. Madelyn Dc APRN.TECHNICAL SERVICES REPRESENTATIVE Trigger Point (8 ) bilateral 3 muscle groups trapezius, levator scapulae and supra scapular muscle groups 8 trigger point injection was performed with 1 mL(s) of bupivacaine 0.25% for anesthetic. A 25 gauge needle was used. Bupivacaine: 0.25% [facility]: [facility]: [id number] LOT: [id number] EXP: 2024 Indication for Procedure: myofacial pain Post Procedure: The patient tolerated the treatment well. ASSESSMENT/PLAN: 1. Myofascial pain - ICD9: 729.1, ICD10: M79.18 Instructions Procedure: Other: trigger point injection Post Procedure Instructions: You may resume normal activities the day after the procedure, as tolerated., Pain should gradually subside over the next 2-3 weeks., Apply cold compresses to injection site if needed. and Increased pain the day after the procedure may occur. Please increase water intake for the next 24 hours as this will help the soreness. If you have any of the following signs or symptoms, please call our office at Fever and/or chills Swelling and/or drainage from injection site New pain that is different than your normal pain (other than soreness at the site of the procedure) Stiff neck Shortness of breath Severe increase in pain Motor dysfunctions, such as difficulty walking, bowel or bladder dysfunction and/or incontinence Headache that is severe, light sensitive or develops when changing positions (positional headache) Nausea and/or vomiting accompanied by headache that started 24-48 hours after the procedure If you have any emergent concerns, please call 911 or go to your local emergency room. Please also contact our office to let us know you will be seeking emergency care and why. Patient verbalizes understanding of home going instructions and is in agreement with the discharge plan. Patient questions were answered to their satisfaction. Some elements may be copied from a previous office note and have been reviewed/updated where appropriate. All portions reflect current medical decision making from today Madelyn Dc APRN.TECHNICAL SERVICES REPRESENTATIVE [facility] NoteHNO ID: [id number] Author: AGA PARKER LPN Service: ? Author Type: LICENSED NURSE Type: Progress Notes Filed: 01/16/2025 14:13 Note Text: Review of Systems Constitutional: Negative for activity change, chills, fever and unexpected weight change. Genitourinary: Negative for difficulty urinating. Musculoskeletal: Positive for back pain. Negative for arthralgias, gait problem, joint swelling, myalgias and neck pain. Neurological: Positive for headaches. Negative for weakness and numbness. Psychiatric/Behavioral: Negative for dysphoric mood, sleep disturbance and suicidal ideas. The patient is not nervous/anxious.[facility] 01-16-2025 Instructions* Patient Instructions* Tomasz Louis MD - 01/16/2025 11:54 AM EDT Stop lisinopril today: Do not throw it out Start Entresto 1 pill twice daily: First dose this January 19-I sent prescription to your local pharmacy Start Jardiance 10 mg daily-I sent prescription to your local pharmacy If either of these medicines are too expensive just do not get it filled and let us know Have blood work done after an overnight fast in about 3 weeks and do a chest x- ray at the same time: You can walk-in to any [facility] Facility I put a consult in for you to go to the heart failure clinic in 2 to 3 months. You should hear fromtheir offices Possible family physicians for you to see Dr Lowell Motta heart rate documented in this [facility] NoteHNO ID: [id number] Author: TOMASZ LOUIS MD Service: ? Author Type: Physician Type: Progress Notes Filed: 01/16/2025 12:02 Note Text: Chief Complaint No chief complaint on file. History of Present Illness: Vincent Madden is a 64 year old male here to follow-up dilated cardiomyopathy. Recent echo showed reduction in EF down to about 30 to 35% with previously was a little higher at about 40 to 45% he says he feels like carotid but in fact does not really have edema he has gained some weight he does not have chest pain he does not have syncope he does not have palpitations he has had no ICD firings no stroke or TIA no upper or lower GI bleeding no severe bruising no claudication he is compliant with all of his meds. Sounds like he is mostly having some fatigue. He has had no fevers or chills no viral syndrome no unexplained weight loss he does not have a primary physician has not any recent blood work. 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 PAST MEDICAL HISTORY Diagnosis Date Abnormal EKG Atherosclerotic heart disease of [place] coronary artery without angina pectoris Automatic implantable cardioverter-defibrillator in situ BBB (bundle branch block) Benign neoplasm of colon Cardiomegaly Cardiomyopathy (HCC) NIDCM CHF (congestive heart failure) systolic 12/02/2012 Chronic pain of left thumb Coronary arteriosclerosis Dilated cardiomyopathy (HCC) 12/02/2012 Latest Echo 05/2016 with EF 40% can be found in Care Everywhere Dyspnea Epigastric pain Fatigue GERD (gastroesophageal reflux disease) Hiatal hernia History of colonic polyps 08/30/2017 Added automatically from request for surgery [id number] HTN (hypertension) 11/19/2023 LBBB (left bundle branch block) Left ventricular failure (HCC) Obesity 12/05/2012 Palpitations SOB (shortness of breath) pt stated before pacemaker and defib placed Tendinitis of right rotator cuff 09/02/2020 PAST SURGICAL HISTORY Procedure Laterality Date CARDIAC CATH Left 06/2011 COLONOSCOPY SCREENING N/A 12/09/2023 COLONOSCOPY W/BIOPSY SINGLE/MULTIPLE 12/24/2017 EGD TRANSORAL BIOPSY SINGLE/MULTIPLE 12/24/2017 EGD W/O BRSH SPEC VARICIES INJ N/A 12/09/2023 LOW BACK DISK SURGERY PACEMAKER 02/26/2016 Medtr[employer] pacemaker and defib PAST SURGICAL HISTORY OF pin removed from the left thumb FAMILY HISTORY Problem Relation Age of Onset Coronary Artery Disease Mother a. CABG, carotid artery endarterectomy bilateral Breast Cancer Mother Heart Mother Coronary Artery Disease Father a. CABG, valve replacement Heart Father None Brother 3 brothers and one sister a.OK Cancer Brother one brother a. Colon Cancer Brother other (scd) Other uncle and aunt scd other (Heart Attack) Other Heart Paternal Uncle x2 Heart Paternal Aunt Social History Tobacco Use Smoking status: Former Current packs/day: 0.00 Average packs/day: 1 pack/day for 10.0 years (10.0 ttl pk-yrs) Types: Cigarettes Start date: 12/05/1996 Quit date: 12/05/2006 Years since quittin.1 Smokeless tobacco: Never Vaping Use Vaping status: Never Used Substance Use Topics Alcohol use: No Comment: heavy alcohol consumption and quit in 1987 Drug use: No ALLERGIES Allergen Reactions Buprenorphine Other: See Comments Medications: Current Outpatient Medications Medication Sig Dispense Refill cyclobenzaprine (FLEXERIL) 5 mg tablet Take 1 tablet by mouth three times a day as needed for muscle spasm. 15 tablet 0 carvedilol (COREG) 12.5 mg tablet Take 1 tablet by mouth twice daily 180 tablet 3 Tadalafil (CIALIS) 5 mg tablet Take 1 tablet by mouth once daily. Take 1 tablet by mouth daily (Patient taking differently: Take by mouth once daily. Take 1 tablet by mouth daily) 30 tablet 11 esomeprazole (NEXIUM) 40 mg capsule Take 1 capsule by mouth once daily. 30 capsule 11 furosemide (LASIX) 40 mg tablet Take 1 tablet by mouth once daily. 90 tablet 0 lisinopril (ZESTRIL) 20 mg tablet Take 1 tablet by mouth two times a day. 180 tablet 0 spironolactone (ALDACTONE) 25 mg tablet Take 1 tablet by mouth once daily. 90 tablet 0 atorvastatin (LIPITOR) 20 mg tablet Take 1 tablet by mouth once daily. 90 tablet 0 diclofenac (VOLTAREN) 1 % topical gel Apply 2 g to affected area four times daily. 450 g 0 meclizine (ANTIVERT) 25 mg tab Take 1 tablet by mouth three times daily as needed. 90 tablet 2 topiramate (TOPAMAX) 100 mg tablet Take 1 tablet by mouth daily at bedtime. 30 tablet 4 gabapentin (NEURONTIN) 600 mg tablet Take 600 mg by mouth three times a day. aspirin, enteric coated (ADULT LOW DOSE ASPIRIN) 81 mg EC tablet Take 1 tablet by mouth once daily. 0 No current facility-administered medications for this visit. Review of Systems Constitutional: Positive for malaise/fatigue. Negative for chills, fever and weight loss. Respiratory: (more content not included)...[facility] 01-15-2025 History of Present illness Narrative* Tomasz Louis MD - 01/15/2025 7:25 AM EDT Chief Complaint No chief complaint on file. History of Present Illness: Vincent Madden is a 64 year old male here to follow-up dilated cardiomyopathy. Recent echo showed reduction in EF down to about 30 to 35% with previously was a little higher at about 40 to 45% he sayshe feels like carotid but in fact does not really have edema he has gained some weight he does not have chest pain he does not have syncope he does not have palpitations he has had no ICD firings no stroke or TIA no upper or lower GI bleeding no severe bruising no claudication he is compliant with all of his meds. Sounds like he is mostly having some fatigue. He has had no fevers or chills no viral syndrome no unexplained weight loss he does not have a primary physician has not any recent bloodwork. He does think that the timing of his worsening status coincides with his generator change forhis [employer] device last year. PAST MEDICAL HISTORY Diagnosis Date Abnormal EKG Atherosclerotic heart disease of [place] coronary artery without angina pectoris Automatic implantable cardioverter-defibrillator in situ BBB (bundle branch block) Benign neoplasm of colon Cardiomegaly Cardiomyopathy (HCC) [facility] CHF (congestive heart failure) systolic 12/02/2012 Chronic pain of left thumb Coronary arteriosclerosis Dilated cardiomyopathy (HCC) 12/02/2012 Latest Echo 05/2016 with EF 40% can be found in Care Everywhere Dyspnea Epigastric pain Fatigue GERD (gastroesophageal reflux disease) Hiatal hernia History of colonic polyps 08/30/2017 Added automatically from request for surgery [id number] HTN (hypertension) 11/19/2023 LBBB (left bundle branch block) Left ventricular failure (HCC) Obesity 12/05/2012 Palpitations SOB (shortness of breath) pt stated before pacemaker and defib placed Tendinitis of right rotator cuff 09/02/2020 PAST SURGICAL HISTORY Procedure Laterality Date CARDIAC CATH Left 06/2011 COLONOSCOPY SCREENING N/A 12/09/2023 COLONOSCOPY W/BIOPSY SINGLE/MULTIPLE 12/24/2017 EGD TRANSORAL BIOPSY SINGLE/MULTIPLE 12/24/2017 EGD W/O BRSH SPEC VARICIES INJ N/A 12/09/2023 LOW BACK DISK SURGERY PACEMAKER 02/26/2016 Medtronic pacemaker and defib PAST SURGICAL HISTORY OF pin removed from the left thumb FAMILY HISTORY Problem Relation Age of Onset Coronary Artery Disease Mother a. CABG, carotid artery endarterectomy bilateral Breast Cancer Mother Heart Mother Coronary Artery Disease Father a. CABG, valve replacement Heart Father None Brother 3 brothers and one sister a.OK Cancer Brother one brother a. Colon Cancer Brother other (scd) Other uncle and aunt scd other (Heart Attack) Other Heart Paternal Uncle x2 Heart Paternal Aunt Social History Tobacco Use Smoking status: Former Current packs/day: 0.00 Average packs/day: 1 pack/day for 10.0 years (10.0 ttl pk-yrs) Types: Cigarettes Start date: 12/05/1996 Quit date: 12/05/2006 Years since quittin.1 Smokeless tobacco: Never Vaping Use Vaping status: Never Used Substance Use Topics Alcohol use: No Comment: heavy alcohol consumption and quit in 1987 Drug use: No ALLERGIES Allergen Reactions Buprenorphine Other: See Comments Medications: Current Outpatient Medications Medication Sig Dispense Refill cyclobenzaprine (FLEXERIL) 5 mg tablet Take 1 tablet by mouth three times a day as needed for muscle spasm. 15 tablet 0 carvedilol (COREG) 12.5 mg tablet Take 1 tablet by mouth twice daily 180 tablet 3 Tadalafil (CIALIS) 5 mg tablet Take 1 tablet by mouth once daily. Take 1 tablet by mouth daily (Patient taking differently: Take by mouth once daily. Take 1 tablet by mouth daily) 30 tablet 11 esomeprazole (NEXIUM) 40 mg capsule Take 1 capsule by mouth once daily. 30 capsule 11 furosemide (LASIX) 40 mg tablet Take 1 tablet by mouth once daily. 90 tablet 0 lisinopril (ZESTRIL) 20 mg tablet Take 1 tablet by mouth two times a day. 180 tablet 0 spironolactone (ALDACTONE) 25 mg tablet Take 1 tablet by mouth once daily. 90 tablet 0 atorvastatin (LIPITOR) 20 mg tablet Take 1 tablet by mouth once daily. 90 tablet 0 diclofenac (VOLTAREN) 1 % topical gel Apply 2 g to affected area four times daily. 450 g 0 meclizine (ANTIVERT) 25 mg tab Take 1 tablet by mouth three times daily as needed. 90 tablet 2 topiramate (TOPAMAX) 100 mg tablet Take 1 tablet by mouth daily at bedtime. 30 tablet 4 gabapentin (NEURONTIN) 600 mg tablet Take 600 mg by mouth three times a day. aspirin, enteric coated (ADULT LOW DOSE ASPIRIN) 81 mg EC tablet Take 1 tablet by mouth once daily.0 No current facility-administered medications for this visit. Review of Systems Constitutional: Positive for malaise/fatigue. Negative for chills, fever and weight loss. Respiratory: Negative for shortness of breath and wheezing. Denies Chest Tightness Cardiovascular: Negative. Gastrointestinal: Negative for abdominal pain, blood in stool and nausea. Genitourinary: Negative for hematuria. Musculoskeletal: Negative for falls. Neurological: Positive for weakness. Negative for dizziness, speech change and loss of consciousness. Denies syncope Endo/Heme/Allergies: Does not bruise/bleed easily. Physical Examination: Vitals: BP 121/79 (BP Site: Left Arm, BP Position: Sitting, BP Cuff Size: Large Adult) Wt 196 lb 9.6 oz (89.2 kg) SpO2 97% BMI 29.89 kg/m Last 2 Encounter Wt Readings: Date: Wt: 12/24/2024 192 lb (87.1 kg) 09/05/2024 200 lb 14.4 oz (91.1 kg) Physical Exam General: He is not in acute distress. Appearance: He is not diaphoretic. HENT: Head: Normocephalic. Balding male hair pattern Eyes: Comments: Pupils equal eyelids appear normal Neck: Thyroid: No thyromegaly. Vascular: No carotid bruit or JVD. Possible hepatojugular reflux Cardiovascular: Rate and Rhythm: Regular rhythm. Pulses: Carotid pulses are 2+ on the right side and 2+ on the left side. Radial pulses are 2+ on the right side and 1-2+ on the left side. Bilateral posterior tibial pulses 2+ Heart sounds: Heart sounds are distant. No murmur heard. No friction rub. No gallop. Comments: [place] nonpalpable, no RV lift Pulmonary: No accessory muscle use no wheezing minimally diminished breath sounds comments: Healed ICD on the left Abdominal: Palpations: Abdomen is soft. Nontender no obvious hepatomegaly no pulsatility Musculoskeletal: Right lower leg: No edema. Left lower leg: No edema. Skin: General: Skin is warm and dry. Findings: No bruising or rash. Neurological: Normal mentation follows commands. Psychiatric: Mood and Affect: Slightly depressed affect Pertinent Labs: CBC: Hemoglobin (g/dL) Date Value 05/30/2024 14.5 HGB (g/dL) Date Value 01/31/2020 12.6 Hematocrit (%) Date Value 05/30/2024 40.8 01/31/2020 35.9 WBC Date Value 05/30/2024 6.27 k/uL 01/31/2020 16.7 thou/cmm Platelet Count Date Value 05/30/2024 153 k/uL 01/31/2020 215 thou/cmm BMP: Glucose (mg/dL) Date Value 05/30/2024 105 01/31/2020 104 Potassium Date Value 05/30/2024 4.4 mmol/L 01/31/2020 3.8 mEq/L Sodium Date Value 05/30/2024 140 mmol/L 01/31/2020 139 mEq/L Chloride Date Value 05/30/2024 109 mmol/L 01/31/2020 104 mEq/L CO2 Date Value 05/30/2024 20 mmol/L 01/31/2020 26 mEq/L Creatinine (mg/dL) Date Value 05/30/2024 1.01 01/31/2020 1.08 BUN (mg/dL) Date Value 05/30/2024 28 01/31/2020 16 Anion Gap Date Value 05/30/2024 11 mmol/L 01/31/2020 13 Calcium (mg/dL) Date Value 01/31/2020 9.0 Calcium, Total (mg/dL) Date Value 05/30/2024 9.3 INR: TSH: No results found for: TSHREFL Lipid Profile: Cholesterol, Total Date Value Ref Range Status 06/19/2021 225 (H) <200 mg/dL Final Comment: <200 mg/dL, Desirable 200-239 mg/dL, Borderline high >239 mg/dL, High HDL Cholesterol Date Value Ref Range Status 06/19/2021 42 >39 mg/dL Final Comment: 40-59 mg/dL, Acceptable >59 mg/dL, High: Negative risk factor for coronary heart disease <40 mg/dL, Low: Positive risk factor for coronary heart disease LDL Cholesterol Date Value Ref Range Status 06/19/2021 164 (H) <100 mg/dL Final Comment: <100 mg/dL, Optimal 100-129 mg/dL, Near optimal/above optimal 130-159 mg/dL, Borderline high 160-189 mg/dL, High >189 mg/dL, Very high Secondary prevention optimal LDL Cholesterol levels are recommended to be < 70 mg/dL Triglyceride Date Value Ref Range Status 06/19/2021 97 <150 mg/dL Final Comment: <150 mg/dL, Normal 150-199 mg/dL, Borderline high 200-499 mg/dL, High >499 mg/dL, Very high Hemoglobin A1C: No results found for: HGBA1C Most Recent Cardiac Testing Assessment and Plan: 1. Dilated cardiomyopathy: Recent echo EF down a little bit to 30-35% with previously 45%. Says he feels like carotid but this is really nonspecific on volume status actually looks good and previously he has had similar symptoms about 6 years ago which prompted blood work which showed a normal BNP normal D- dimer and a heart cath that was done at that time no CAD and normal capillary wedge pressure. However at that time his EF was better at 50 to 55%. I am not completely convinced his symptoms are from heart failure but this certainly could be. We have not had a maximized because he is previously doing pretty well so I will go ahead and stop lisinopril and 3 days later we will start Entresto / twice daily I will also go ahead and add Jardiance 10 mg daily he knows that this can increase his risk of genitourinary infections. Also both of these agents are nongeneric so if there are cost issues he will let us know. I will have him get some blood work in about 3 weeks and a chest x-rayat that time and at that point he will let us know how he is doing. If he is really no better aftera month or 2 on the new meds I might discontinue them. I will also have him go to the heart failureclinic in the next couple of months just to get further follow-up. He and his are in agreementwith this plan I will continue to see Vincent on a regular basis for his heart disease 2. 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 He had a recent generator change last fall: He feels that his declining status occurred after this was changed although it would be very unlikely and in addition his differential fibrillator checks have shown normal function and good BiV pacing. I will get Dr. Monreal's input as to whether there are any device issues which might contribute to his decline in status. No ICD firings l He will also follow- up with the EP service Dr. Monreal for his ICD. 2. Lipids: LDL previously 164 but no recent lipids -I will have a lipid profile done with his upcoming lab work in 3 weeks 3. Extobacco: Quit about 21 years ago -Little or no COPD 4. Hypertension-currently well-controlled with goal blood pressure 130/80 or lower 5. Health maintenance: Still does not have a PCP so I gave him the names of 4 excellent physicians within the [facility] system Exam, assessment and plan from prior note, updated with changes Electronically signed by Tomasz Louis MD on January 15, 2025, 7:25 AM [facility] Telephone encounter Note * Telephone Encounter - Izabela Bass - 01/08/2025 2:07 PM EDT Patient added 01/16/25 at 11:40. Izabela Bass [facility]03-24-[facility] Miscellaneous Notes* Telephone Encounter - Izabela Bass - 01/08/2025 2:07 PM EDT Patient added 01/16/25 at 11:40. Izabela Bass * Telephone Encounter - Mary Oreilly RN - 01/08/2025 2:02 PM EDT Called and spoke with daughter Himanshu to relay echo results from Dr. Louis. She verbalized understanding and is agreeable to appt time. Mary Oreilly, RN * Telephone Encounter - Tomasz Louis MD - 01/08/2025 1:51 PM EDT Patient is echo shows EF a little bit lower at about 35% with previously about 45%. I think we may want to uptitrate his meds but I think the best option is for me to see him in the office next week to discuss further. See if he can come to [place] office January 16 at 11:40 AM. Thanks Goldy Mitchell documented in this encounterF[facility]03-[facility] Telephone encounter Note * Telephone Encounter - Mary Oreilly RN - 01/08/2025 2:02 PM EDT Called and spoke with daughter Himanshu to relay echo results from Dr. Louis. She verbalized understanding and is agreeable to appt time. Mary Oreilly RN [facility]03-24-[facility] Telephone encounter Note* Telephone Encounter - Tomasz Louis MD - 01/08/2025 1:51 PM EDT Patient is echo shows EF a little bit lower at about 35% with previously about 45%. I think we may want to uptitrate his meds but I think the best option is for me to see him in the office next week to discuss further. See if he can come to [place] office January 16 at 11:40 AM. Thanks Goldy Mitchell [facility]03-14-[facility] History of Present illness Narrative* Tamar Flores, RT(R) - 12/29/2024 9:30 AM EDT Radiology Service Progress Note PATIENT NAME: Vincent Madden DATE OF SERVICE: December 29, 2024 TIME: 9:24 AM PATIENT IDENTITY VERIFICATION COMPLETED USING TWO (2) IDENTIFIERS: Name and Date of confirmedby patient verbally. FALL SCREENING: Has the patient had 2 falls in the last year or 1 fall with injury or currently using an Ambulatory Assistive Device (Walker, Cane, Wheelchair, Crutches, etc.)? No PATIENT GENDER DATA: Assigned male at PATIENT RELEVANT IMPLANT DATA REVIEWED: Not Applicable PATIENT PRESENTS WITH AN IMPLANTABLE OR ATTACHED COOK FRY: No RADIOLOGY DEPARTMENT: General X-ray: Exam(s) Completed: Spine X-Ray(s): Cervical AP / LAT / OBL / FLEX-EXT PERIPHERAL IV DATA: Not applicable SIGNED BY: RT Israel(Jacob) December 29, 2024 9:24 AM documented in this encounterFulton [facility]03-14-2025 NoteHNO ID: [id number] Author: TAMAR FLORES RT(R) Service: ? Author Type: Technologist Type: Progress Notes Filed: 12/29/2024 09:24 Note Text: Radiology Service Progress Note PATIENT NAME: Vincent Madden DATE OF SERVICE: December 29, 2024 TIME: 9:24 AM PATIENT IDENTITY VERIFICATION COMPLETED USING TWO (2) IDENTIFIERS: Name and Date of confirmed by patient verbally. FALL SCREENING: Has the patient had 2 falls in the last year or 1 fall with injury or currently using an Ambulatory Assistive Device (Walker, Cane, Wheelchair, Crutches, etc.)? No PATIENT GENDER DATA: Assigned male at PATIENT RELEVANT IMPLANT DATA REVIEWED: Not Applicable PATIENT PRESENTS WITH AN IMPLANTABLE OR ATTACHED COOK FRY: No RADIOLOGY DEPARTMENT: General X-ray: Exam(s) Completed: Spine X-Ray(s): Cervical AP / LAT / OBL / FLEX-EXT PERIPHERAL IV DATA: Not applicable SIGNED BY: RT Israel(R) December 29, 2024 9:24 [facility]25 NoteHNO ID: [id number] Author: COOK, KATHLEEN, COUNCILOR Service: ? Author Type: LICENSED NURSE Type: Progress Notes Filed: 12/29/2024 08:32 Note Text: Review of Systems Constitutional: Positive for activity change. Negative for chills, fever and unexpected weight change. Genitourinary: Negative for difficulty urinating. Musculoskeletal: Positive for back pain, neck pain and neck stiffness. Negative for arthralgias, gait problem, joint swelling and myalgias. Neurological: Positive for headaches. Negative for weakness and numbness. Psychiatric/Behavioral: Positive for sleep disturbance. Negative for dysphoric mood and suicidal ideas. The patient is not nervous/anxious.[facility]03-14-2025 NoteHNO ID: [id number] Author: MADELYN DC APRN.TECHNICAL SERVICES REPRESENTATIVE Service: ? Author Type: Nurse Practitioner Type: Progress Notes Filed: 01/05/2025 08:54 Note Text: [facility] Today's Date: 12/29/2024 Name: iVncent Madden : 1960 Purpose: New Patient Evaluation Chief complaint: neck pain Referring Clinician: Jim Malhotra Pertinent Past Medical History: CHF,GERD, Pertinent Past Surgeries: Defibrillator History of Present Illness (HPI): 12/29/2024 - Initial HPI (Obtained by ).Madelyn Dc APRN.TECHNICAL SERVICES REPRESENTATIVE DURATION AND ONSET: last Wednesday for no reason - denies trauma RED FLAG SYMPTOMS: .denies PAIN DESCRIPTION: Timing: constant Character: aching, sharp Primary Location: bilateral 3 muscle groups trapezius, levator scapulae and supra scapular muscle groups Radiation: none Exacerbating factors: movement Relieving factors: nothing Interferes with: everything 12/24/24 ED visit: Is a 64-year-old male with cardiac history found to have acute cervical myofascial strain of the left paracervical musculature. No trauma no significant red flags. [place] this could be managed with medication management. Patient is administered IM Toradol, oral cyclobenzaprine. We discussed risk benefits and alternatives to trigger point injection and patient is agreeable. See procedure note above. Patient tolerated this well symptoms were modestly improved. Prescriptions to the pharmacy for oral naproxen short course, oral cyclobenzaprine. To follow-up with spine clinic if symptoms continue to persist. We discussed heat and gentle mobilization. We discussed worsening signs and symptoms that would warrant return to the emergency department. Current Pain Medications: Neuropathics: gabapentin, Topamax NSAIDS: Naprosyn Muscle Relaxants: Flexeril Topicals: Voltaren gel Other Prescription or OTC Pain Medications: Opioids (when applicable): Anti-depressants or Mood-Stabilizers: None Anti-Coagulants: None Therapies Attended (Current or Most Recent): No Current Therapies No data to display No question data found. (All drug screens are appropriate unless indicated otherwise) Treatment History: PAIN PROCEDURES: DATE PROCEDURE IMPROVEMENT To date, no interventional pain management procedures performed at this practice. MEDICATIONS Taken TO DATE (for the chief complaint(s)): Neuropathics: Neurontin (Gabapentin) NSAIDS: Naprosyn (Naproxen) Muscle Relaxants: Flexeril (Cyclobenzaprine) Topicals: Voltaren (Gel) Other Prescription or OTC Pain Medications: None Opioids: None Compliance: PDMP website checked and validated on 12/29/2024 by Madelyn Dc APRN.TECHNICAL SERVICES REPRESENTATIVE All prescriptions have been APPROPRIATELY filled. No suspicious activity was identified. No data to display (All drug screens are appropriate unless indicated otherwise) Risk Assessment: KUSUM-7: No data to display (0-4) minimal anxiety, (5-9) mild anxiety, (10-14) moderate anxiety, (15-21) severe anxiety PHQ-9: 12/05/2012 01/09/2020 PHQ-9 Score 26 0 (0-4) minimal depression, (5-9) mild depression, (10-14) moderate depression, (15-19) moderately severe depression, (20-27) severe depression Diagnostic Studies: Relevant Imaging: MRI Spine Report MRI LUMBAR SPINE WO IVCON Collected: 01/27/2019 3:27 PM (Final result) Narrative: * * *Final Report* * * DATE OF EXAM: Jan 27 2019 3:27PM AKFabio [id number] - MRI LUMBAR SPINE WO IVCON / PROCEDURE REASON: M51.27 * * * * Physician Interpretation * * * * EXAMINATION: MRI LUMBAR SPINE WO IVCON CLINICAL HISTORY: Low back pain with bilateral leg radiculopathy TECHNIQUE: Routine lumbosacral spine MR protocol without gadolinium. MQ: [id number] COMPARISON: None. RESULT: Counting reference: Lumbosacral junction. For the purposes of this report, L4-5 is considered the level of the iliac crest and assume there are 5 lumbar-type vertebrae. Anatomic variant: None. Alignment: Alignment is anatomic. Bone marrow signal/fracture: No evidence of pathologic marrow infiltration. No evidence of prior fracture. Conus: The conus is within normal limits of signal intensity and morphology. Paraspinal soft tissues: Paraspinal soft tissues are within normal limits. Lower thoracic spine: Visualized lower thoracic canal and foramina are patent. T12-L1: Canal and foramina are patent. L1-L2: Canal and foramina are patent. L2-L3: Canal and foramina are patent L3-L4: There is degenerative disc disease with mild broad-based posterior disc bulging. There are congenitally shortened pedicles, ligamentum flavum thickening and facet arthritis which contribute to a mild central canal stenosis. Mildly prominent dorsal epidu (more content not included)...[facility]02-20-2025 NoteHNO ID: [id number] Author: ALIYAH TENA MA Service: ? Author Type: Oral And Maxillofacial Surgery Resident Type: Progress Notes Filed: 12/07/2024 15:09 Note Text: POPULATION HEALTH NAVIGATION OUTREACH Action/FYI Attempted to contact patient, no answer and unable to leave a message requesting a return call to verify/update PCP. [employer] message also sent. Patient is currently due for the following Health Maintenance items: Abdominal Aortic Aneurysm Screening Depression Screening Anxiety Screening BP Controlled (<130/80) Pneumococcal Vaccine: 50+(1 of 2 - PCV) Shingrix Vaccine(1 of 2) RSV Vaccine(1 - Risk 60-74 years 1-dose series) LDL Cholesterol Annual PCP Team Chronic Disease Visit Influenza Vaccine(1) Covid-19 Vaccine( - season) Advance Directive Discussion Reason for Outreach Attribution: Unknown PCP Report Care Gaps due: Establish Care Appointment Patient Contacted: Unable or unnecessary to reach patient: Left message [employer] message sent Navigation Signature: Aliyah Tena MA December 07, 2024 3:08 [facility]02-20-2025 History of Present illness Narrative* Aliyah Tena MA - 12/07/2024 3:07 PM EST POPULATION HEALTH NAVIGATION OUTREACH Action/FYI Attempted to contact patient, no answer and unable to leave a message requesting a return call to verify/update PCP. [employer] message also sent. Patient is currently due for the following Health Maintenance items: Abdominal Aortic Aneurysm Screening Depression Screening Anxiety Screening BP Controlled (<130/80) Pneumococcal Vaccine: 50+(1 of 2 - PCV) Shingrix Vaccine(1 of 2) RSV Vaccine(1 - Risk 60-74 years 1-dose series) LDL Cholesterol Annual PCP Team Chronic Disease Visit Influenza Vaccine(1) Covid-19 Vaccine( - season) Advance Directive Discussion Reason for Outreach Attribution: Unknown PCP Report Care Gaps due: Establish Care Appointment Patient Contacted: Unable or unnecessary to reach patient: Left message [employer] message sent Navigation Signature: Aliyah Tena MA December 07, 2024 3:08 PM documented in this encounterF[facility]02-[facility] NotePatient Outreach (NETNAV) VINCENT MADDEN ([id number]) 1960 M Date Time Provider Department 12/07/24 ALIYAH TENAV During your visit today, we recorded the following information about you: Aliyah Tena MA 12/07/2024 3:09 PM Signed POPULATION HEALTH NAVIGATION OUTREACH Action/FYI Attempted to contact patient, no answer and unable to leave a message requesting a return call to verify/update PCP. [employer] message also sent. Patient is currently due for the following Health Maintenance items: Abdominal Aortic Aneurysm Screening Depression Screening Anxiety Screening BP Controlled (<130/80) Pneumococcal Vaccine: 50+(1 of 2 - PCV) Shingrix Vaccine(1 of 2) RSV Vaccine(1 - Risk 60-74 years 1-dose series) LDL Cholesterol Annual PCP Team Chronic Disease Visit Influenza Vaccine(1) Covid-19 Vaccine( season) Advance Directive Discussion Reason for Outreach Attribution: Unknown PCP Report Care Gaps due: Establish Care Appointment Patient Contacted: Unable or unnecessary to reach patient: Left message [employer] message sent Navigation Signature: Aliyah Tena MA December 07, 2024 3:08 PM Allergies As of Date: 12/07/2024 Noted Allergy Reaction BUPRENORPHINE 10/04/2020 14 - Other: See Comments Date Reviewed: 09/05/2024 Reviewed by: Aga Hector LPN - Fully Assessed Reason for Visit: Population Health Navigation Outreach [3910] Cmt: [employer] Unknown PCP Prescriptions as of 12/07/2024 - carvedilol (COREG) 12.5 mg tablet Take 1 tablet by mouth twice daily - Tadalafil (CIALIS) 5 mg tablet Take 1 tablet by mouth once daily. Take 1 tablet by mouth daily - esomeprazole (NEXIUM) 40 mg capsule Take 1 capsule by mouth once daily. - furosemide (LASIX) 40 mg tablet Take 1 tablet by mouth once daily. - lisinopril (ZESTRIL) 20 mg tablet Take 1 tablet by mouth two times a day. - spironolactone (ALDACTONE) 25 mg tablet Take 1 tablet by mouth once daily. - atorvastatin (LIPITOR) 20 mg tablet Take 1 tablet by mouth once daily. - diclofenac (VOLTAREN) 1 % topical gel Apply 2 g to affected area four times daily. - meclizine (ANTIVERT) 25 mg tab Take 1 tablet by mouth three times daily as needed. - topiramate (TOPAMAX) 100 mg tablet Take 1 tablet by mouth daily at bedtime. - gabapentin (NEURONTIN) 600 mg tablet Take 600 mg by mouth three times a day. - aspirin, enteric coated (ADULT LOW DOSE ASPIRIN) 81 mg EC tablet Take 1 tablet by mouth once daily. Problem List As Of Date 12/07/2024 Noted Resolved Systolic congestive heart failure, NYHA class 1*12/05/2012 Obesity [E66.9] 12/05/2012 08/09/2021 ICD (implantable cardioverter-defibrillator) in*06/04/2016 Dilated cardiomyopathy (HCC) [I42.0] 12/02/2012 Palpitations [R00.2] Coronary arteriosclerosis [I25.10] LBBB (left bundle branch block) [I44.7] Hypertriglyceridemia [E78.1] 02/11/2017 History of colonic polyps [Z86.0100] 08/30/2017 08/09/2021 Hiatal hernia with GERD [K44.9, K21.9] 02/10/2018 Carpal tunnel syndrome of left wrist [G56.02] 09/28/2018 Tendinitis of right rotator cuff [M75.81] 09/02/2020 08/09/2021 Lumbosacral radiculopathy [M54.17] 08/09/2021 Sciatica [M54.30] 08/09/2021 Displacement of lumbar intervertebral disc with*08/09/2021 Athscl heart disease of [place] coronary artery *02/26/2016 Chronic systolic CHF (congestive heart failure)*11/19/2022 Preop examination [Z01.818] 11/19/2023 Gastroesophageal reflux disease [K21.9] 11/19/2023 Rectal bleeding [K62.5] 11/19/2023 HTN (hypertension) [I10] 11/19/2023 Elective replacement of Mdt Biv implantable car*05/30/2024 Encounter Status:Closed by ALIYAH TENA on 12/07/24[facility]11-19-[facility] History of Present illness Narrative* Suzy Burris APRN.TECHNICAL SERVICES REPRESENTATIVE - 09/05/2024 8:30 AM EST Images from the original note were not included. [facility] Cardiology Electrophysiology PRIMARY CARE PHYSICIAN: To use this Smartlink, specify the provider ID whose address you want to display, e.g., .PROVADDR[1(where 1 is the provider ID). 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 HISTORY OF PRESENT ILLNESS: Mr. Madden is a 64 year old male who presents today for follow-up regarding ROAD GRADER OPERATOR- D. The patient has a history of hypertension, LBBB, NICM 2012, dilated cardiomyopathy s/p Medtronic biventricular ICD for primary prevention 02/26/2016, no history of ICD shocks, cath 2010 showed nonobstructive CAD. Transthoracic echocardiogram 05/2021 showed LVEF 45%, NM SPECT 06/17/2021 showed normal perfusion, no scar. He established care with Dr. Monreal April/2024 after his device reached elective replacement indicator 04/22/2024, former patient of Dr. Salcedo. Subsequently, he underwent generator replacement with 05/30/2024. Interval History: The patient reports his left upper chest ICD incision site is well-healed, looks fine by examination. He denies pain at the site, denies ICD shock. He denies chest discomfort, palpitations, shortness of breath, lightheadedness, dizziness, near-syncope or syncope. PAST MEDICAL HISTORY Diagnosis Date Abnormal EKG Atherosclerotic heart disease of [place] coronary artery without angina pectoris Automatic implantable cardioverter-defibrillator in situ BBB (bundle branch block) Benign neoplasm of colon Cardiomegaly Cardiomyopathy (HCC) NIDCM CHF (congestive heart failure) systolic 12/02/2012 Chronic pain of left thumb Coronary arteriosclerosis Dilated cardiomyopathy (HCC) 12/02/2012 Latest Echo 05/2016 with EF 40% can be found in Care Everywhere Dyspnea Epigastric pain Fatigue GERD (gastroesophageal reflux disease) Hiatal hernia History of colonic polyps 08/30/2017 Added automatically from request for surgery [id number] HTN (hypertension) 11/19/2023 LBBB (left bundle branch block) Left ventricular failure (HCC) Obesity 12/05/2012 Palpitations SOB (shortness of breath) pt stated before pacemaker and defib placed Tendinitis of right rotator cuff 09/02/2020 PAST SURGICAL HISTORY Procedure Laterality Date CARDIAC CATH Left 06/2011 COLONOSCOPY SCREENING N/A 12/09/2023 COLONOSCOPY W/BIOPSY SINGLE/MULTIPLE 12/24/2017 EGD TRANSORAL BIOPSY SINGLE/MULTIPLE 12/24/2017 EGD W/O BRSH SPEC VARICIES INJ N/A 12/09/2023 LOW BACK DISK SURGERY PACEMAKER 02/26/2016 Medtronic pacemaker and defib PAST SURGICAL HISTORY OF pin removed from the left thumb Social History Tobacco Use Smoking status: Former Current packs/day: 0.00 Average packs/day: 1 pack/day for 10.0 years (10.0 ttl pk-yrs) Types: Cigarettes Start date: 12/05/1996 Quit date: 12/05/2006 Years since quittin.7 Smokeless tobacco: Never Vaping Use Vaping status: Never Used Substance Use Topics Alcohol use: No Comment: heavy alcohol consumption and quit in 1987 Drug use: No Family History Problem Relation Age of Onset Coronary Artery Disease Mother a. CABG, carotid artery endarterectomy bilateral Breast Cancer Mother Heart Mother Coronary Artery Disease Father a. CABG, valve replacement Heart Father None Brother 3 brothers and one sister a.OK Cancer Brother one brother a. Colon Cancer Brother other (scd) Other uncle and aunt scd other (Heart Attack) Other Heart Paternal Uncle x2 Heart Paternal Aunt ALLERGIES Allergen Reactions Buprenorphine Other: See Comments MEDICATIONS: carvedilol (COREG) 12.5 mg tablet Take 1 tablet by mouth twice daily esomeprazole (NEXIUM) 40 mg capsule Take 1 capsule by mouth once daily. furosemide (LASIX) 40 mg tablet Take 1 tablet by mouth once daily. lisinopril (ZESTRIL) 20 mg tablet Take 1 tablet by mouth two times a day. spironolactone (ALDACTONE) 25 mg tablet Take 1 tablet by mouth once daily. atorvastatin (LIPITOR) 20 mg tablet Take 1 tablet by mouth once daily. diclofenac (VOLTAREN) 1 % topical gel Apply 2 g to affected area four times daily. meclizine (ANTIVERT) 25 mg tab Take 1 tablet by mouth three times daily as needed. topiramate (TOPAMAX) 100 mg tablet Take 1 tablet by mouth daily at bedtime. gabapentin (NEURONTIN) 600 mg tablet Take 600 mg by mouth three times a day. aspirin, enteric coated (ADULT LOW DOSE ASPIRIN) 81 mg EC tablet Take 1 tablet by mouth once daily. Tadalafil (CIALIS) 5 mg tablet Take 1 tablet by mouth once daily. Take 1 tablet by mouth daily (Patient taking differently: Take by mouth once daily. Take 1 tablet by mouth daily) REVIEW OF SYSTEMS: Review of Systems Constitutional: Negative for chills, diaphoresis and fever. Respiratory: Negative for cough, hemoptysis, sputum production, shortness of breath and wheezing. Cardiovascular: Negative for chest pain, palpitations, orthopnea, leg swelling and PND. Musculoskeletal: Negative for myalgias. Neurological: Negative for dizziness, loss of consciousness and headaches. PHYSICAL EXAMINATION: BP 144/82 Pulse 84 Resp 18 Ht 5' 8 (1.73m) Wt 200 lb 14.4 oz (91.1kg) SpO2 95[room air]% BMI 30.55 kg/(m^2). Physical Exam Vitals and nursing note reviewed. Constitutional: General: He is not in acute distress. Appearance: He is not diaphoretic. HENT: Head: Normocephalic and atraumatic. Neck: Vascular: No JVD. Cardiovascular: Rate and Rhythm: Normal rate and regular rhythm. Pulses: Radial pulses are 2+ on the right side and 2+ on the left side. Heart sounds: S1 normal and S2 normal. No murmur heard. No gallop. Comments: Left upper chest ROAD GRADER OPERATOR-D site well-healed, no signs of infection, erythema or swelling. Pulmonary: Effort: Pulmonary effort is normal. No respiratory distress. Breath sounds: Normal breath sounds. No wheezing or rales. Chest: Chest wall: No tenderness. Musculoskeletal: General: Normal range of motion. Cervical back: Neck supple. Right lower leg: No edema. Left lower leg: No edema. Skin: General: Skin is warm and dry. Nails: There is no clubbing. Neurological: Mental Status: He is alert and oriented to person, place, and time. Psychiatric: Mood and Affect: Mood and affect normal. Behavior: Behavior normal. CARDIOVASCULAR MEDICINE TESTING: Echocardiogram: 06/12/2021 CONCLUSIONS: - Exam indication: Routine surveillance (>1yr) of known cardiomyopathy without a change in clinical status - The left ventricle is normal in size. There is mild left ventricular hypertrophy. Left ventricular systolic function is mildly decreased. EF = 45 5% (2D biplane) Grade I left ventricular diastolic dysfunction. Global hypokinesis. - The right ventricle is normal in size. Right ventricular systolic function is low normal. - Trace tricuspid, mitral and aortic regurgitation. - The patient has not had a prior echocardiographic exam for comparison. Stress Test: 06/17/2021 CONCLUSIONS: 1. SPECT Perfusion Study: Normal. 2. There is no scintigraphic evidence for inducible ischemia. 3. No evidence of scarred myocardium. 4. Left ventricle is normal in size. The left ventricle systolic function is normal. 5. Right ventricle is normal in size. 6. This is a low risk scan. Gated Stress FBP LVEF % 56 Device check: [facility] device clinic 04/30/2024: Report copied forward: ICD remote interrogation. Presenting EGM p-synch RV paced @ 87 ppm. No VT/VF events and no mode switch episodes since last check. Sensing and impedance values stable. EGMs w/o noise. Device has reached Recommended replacement time as of 04/22/24, report sent for review and scheduling. I have personally reviewed the Electrocardiogram: 09/05/2024 -atrial sensed ventricular paced rhythm, 78 bpm, NM 174 ms, QRS 148 ms, QT/QTc 436/479 ms. PLAN AND RECOMMENDATIONS: ASSESSMENT/PLAN: 1. Encounter for discussion regarding cardiac resynchronization therapy defibrillator (ROAD GRADER OPERATOR-D) - ICD9: V65.49, ICD10: Z71.89 (primary diagnosis) - Medtronic ROAD GRADER OPERATOR-D implanted 02/26/2016, generator replacement with Dr. Monreal 05/30/2024. He is doing well from a device perspective. Most recent device check performed 04/30/2024, he is due today for a remote interrogation, the report is not yet available. He will continue to follow with [facility] device clinic quarterly (3x/year remotely and in-clinic annually). He will follow-up with Dr. Monreal in May/2025, as scheduled. He will call in the interim with anyquestions or concerns, patient and his spouse verbalized understanding. 2. Cardiomyopathy, nonischemic (HCC) - ICD9: 425.4, ICD10: I42.8 3. Chronic systolic CHF (congestive heart failure) (HCC) - ICD9: 428.22, 428.0, ICD10: I50.22 -seems compensated and euvolemic on exam, on medical therapy, most recent LVEF 45% in 2020, follows with [facility] can feeder, Dr. Louis. Return for Keep appointment with Dr. Monreal in May/2025 as scheduled. Suzy Burris APRN.CNP Medical Decision Making: Problems: Moderate: 2+ stable chronic illnesses Data: Unique source(s) for external note(s) reviewed: 2 Unique test result(s) reviewed: 3+ Unique test(s) ordered: 1 Risk: Minimal: Minimal risk from testing/treatment Medical Decision Making Level: 4 - Moderate The above note was partially created using a dictation recognition software. A reasonable attempt has been made to correct any errors. documented in this encounterFulton [facility]24 NoteHNO ID: [id number] Author: SUZY BURRIS APRN.CNP Service: ? Author Type: Nurse Practitioner Type: Progress Notes Filed: 09/05/2024 08:34 Note Text: [facility] General Cardiology Electrophysiology PRIMARY CARE PHYSICIAN: To use this Smartlink, specify the provider ID whose address you want to display, e.g., .PROVADDR[1 (where 1 is the provider ID). 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 HISTORY OF PRESENT ILLNESS: Mr. 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 The patient has a history of hypertension, LBBB, NICM 2012, dilated cardiomyopathy s/p Medtronic biventricular ICD for primary prevention 02/26/2016, no history of ICD shocks, cath 2010 showed nonobstructive CAD. Transthoracic echocardiogram 05/2021 showed LVEF 45%, NM SPECT 06/17/2021 showed normal perfusion, no scar. He established care with Dr. Monreal April/2024 after his device reached elective replacement indicator 04/22/2024, former patient of Dr. Salcedo. Subsequently, he underwent generator replacement with Dr. Monreal 05/30/2024. Interval History: The patient reports his left upper chest ICD incision site is well-healed, looks fine by examination. He denies pain at the site, denies ICD shock. He denies chest discomfort, palpitations, shortness of breath, lightheadedness, dizziness, near-syncope or syncope. PAST MEDICAL HISTORY Diagnosis Date Abnormal EKG Atherosclerotic heart disease of [place] coronary artery without angina pectoris Automatic implantable cardioverter-defibrillator in situ BBB (bundle branch block) Benign neoplasm of colon Cardiomegaly Cardiomyopathy (HCC) NIDCM CHF (congestive heart failure) systolic 12/02/2012 Chronic pain of left thumb Coronary arteriosclerosis Dilated cardiomyopathy (HCC) 12/02/2012 Latest Echo 05/2016 with EF 40% can be found in Care Everywhere Dyspnea Epigastric pain Fatigue GERD (gastroesophageal reflux disease) Hiatal hernia History of colonic polyps 08/30/2017 Added automatically from request for surgery [id number] HTN (hypertension) 11/19/2023 LBBB (left bundle branch block) Left ventricular failure (HCC) Obesity 12/05/2012 Palpitations SOB (shortness of breath) pt stated before pacemaker and defib placed Tendinitis of right rotator cuff 09/02/2020 PAST SURGICAL HISTORY Procedure Laterality Date CARDIAC CATH Left 06/2011 COLONOSCOPY SCREENING N/A 12/09/2023 COLONOSCOPY W/BIOPSY SINGLE/MULTIPLE 12/24/2017 EGD TRANSORAL BIOPSY SINGLE/MULTIPLE 12/24/2017 EGD W/O BRSH SPEC VARICIES INJ N/A 12/09/2023 LOW BACK DISK SURGERY PACEMAKER 02/26/2016 Medtronic pacemaker and defib PAST SURGICAL HISTORY OF pin removed from the left thumb Social History Tobacco Use Smoking status: Former Current packs/day: 0.00 Average packs/day: 1 pack/day for 10.0 years (10.0 ttl pk-yrs) Types: Cigarettes Start date: 12/05/1996 Quit date: 12/05/2006 Years since quittin.7 Smokeless tobacco: Never Vaping Use Vaping status: Never Used Substance Use Topics Alcohol use: No Comment: heavy alcohol consumption and quit in 1987 Drug use: No Family History Problem Relation Age of Onset Coronary Artery Disease Mother a. CABG, carotid artery endarterectomy bilateral Breast Cancer Mother Heart Mother Coronary Artery Disease Father a. CABG, valve replacement Heart Father None Brother 3 brothers and one sister a.OK Cancer Brother one brother a. Colon Cancer Brother other (scd) Other uncle and aunt scd other (Heart Attack) Other Heart Paternal Uncle x2 Heart Paternal Aunt ALLERGIES Allergen Reactions Buprenorphine Other: See Comments MEDICATIONS: carvedilol (COREG) 12.5 mg tablet Take 1 tablet by mouth twice daily esomeprazole (NEXIUM) 40 mg capsule Take 1 capsule by mouth once daily. furosemide (LASIX) 40 mg tablet Take 1 tablet by mouth once daily. lisinopril (ZESTRIL) 20 mg tablet Take 1 tablet by mouth two times a day. spironolactone (ALDACTONE) 25 mg tablet Take 1 tablet by mouth once daily. atorvastatin (LIPITOR) 20 mg tablet Take 1 tablet by mouth once daily. diclofenac (VOLTAREN) 1 % topical gel Apply 2 g to affected area four times daily. meclizine (ANTIVERT) 25 mg tab Take 1 tablet by mouth three times daily as needed. topiramate (TOPAMAX) 100 mg tablet Take 1 tablet by mouth daily at bedtime. gabapentin (NEURONTIN) 600 mg tablet Take 600 mg by mouth three times a day. aspirin, enteric coated (ADULT LOW DOSE ASPIRIN) 81 mg EC tablet Take 1 tablet by mouth once daily. Tadalafil (CIALIS) 5 mg tablet Take 1 tablet by mouth once daily. Take 1 tablet by mouth daily (Patient taking differently: Take by mouth once daily. Take 1 tablet by mouth daily) REVIEW OF SYSTEMS: Review of Systems Constitutional: Negative for chills, diaphoresis and fever. Respiratory: Negative for cough, hemoptysis, sputum production, shortness of (more content not included)...[facility]11-19-2024 Instructions* Patient Instructions* Suzy Burris APRN.[facility] - 09/05/2024 8:25 AM EST Cardiomyopathy What is cardiomyopathy? Cardiomyopathy is a disease of the heart muscle. The heart muscle gets bigger, thick, or stiff. This can weaken the heart and make it hard for the heart to pump blood. There are 3 main types of cardiomyopathy: Dilated cardiomyopathy. As the heart muscle weakens, it is less able to pump enough blood to the body. Because the heart can't pump as well, the main pumping chamber of the heart (the left ventricle)fills with blood and cannot empty. The extra blood in the left ventricle causes the heart muscle tostretch, just like a balloon expands when you put air into it. The heart slowly gets bigger over several weeks to months. Hypertrophic cardiomyopathy (HCM). The heart muscle cells get bigger. This makes the reece of the heart muscle thick. Thick reece are usually very stiff, making it hard for the heart to pump well. Restrictive cardiomyopathy. The heart muscle gets very stiff. The stiffness makes it hard for the heart to fill with blood and pump properly. What is the cause? The heart muscle may be weakened by many things, such as: Heart attacks Coronary artery disease (CAD) Untreated high blood pressure Chronic illness, such as diabetes or thyroid disease A genetic problem inherited from your parents Cocaine or heavy alcohol use Infection, especially by a virus Some cancer treatments Often what causes the heart to get bigger and weaker is not known. What are the symptoms? Cardiomyopathy may not cause symptoms. If it does, some possible symptoms are: Chest pain, especially after physical activity or heavy meals Shortness of breath Swelling of the legs or ankles Tiredness Dizziness Fainting during physical activity How is it diagnosed? Your healthcare provider will ask about your symptoms and medical history and examine you. Tests may include: Chest X-ray An ECG (also called an EKG or electrocardiogram), which measures and records your heartbeat. You may have an ECG while you are resting or while you exercise on a treadmill. You may also be asked to wear a small portable ECG monitor for a few days or sometimes a couple weeks. An echocardiogram, which uses sound waves (ultrasound) to see how well your heart is pumping and can show areas of heart muscle that are thick Angiogram, which is a series of X-rays taken after your healthcare provider injects a special dye into your blood vessels to show the reece of the arteries and any blockage Your provider may suggest testing other members of your family if he or she thinks that you may have an inherited form of cardiomyopathy. How is it treated? Treatment depends on the type of cardiomyopathy you have and what caused it. Medicines that may be prescribed include: Beta monik or calcium channel monik to relax the heart muscle. This helps lower blood pressure and heart rate so that the heart does not have to work as hard. Vasodilator to open up the blood vessels and let more blood flow through. This helps lower blood pressure so the heart does not have to work as hard. MARTHA inhibitor to relax blood vessels and lower blood pressure. This helps the heart to pump more blood out to the body. Diuretic (water pill) to help your body get rid of the extra fluid that can build up when the heartdoes not pump well. Blood thinner (anticoagulant) to help prevent blood clots that could block the arteries and cause astroke. Procedures that may be used to treat cardiomyopathy include: Removal of a piece of heart muscle (a procedure called myectomy) with a heart catheter or surgery Insertion of an artificial pacemaker or an implantable cardioverter- defibrillator (ICD) to treat abnormal heart rhythms. How can I take care of myself? Take your medicines regularly, carefully following your healthcare provider s instructions. Weigh yourself regularly and let your provider know if you suddenly gain weight. Avoid salty foods and eat a healthy diet with lots of fruits and vegetables. Ask your provider: ?How and when you will hear your test results ?How long it will take to recover ?How much fluid you should drink every day. ?Ask your provider how much you can exercise and try to remain active. Find out what activities youshould avoid. For some types of cardiomyopathy certain sports or activities are not recommended. ?How to take care of yourself at home ?What symptoms or problems you should watch for and what to do if you have them Make sure you know when you should come back for a checkup. How can I help prevent cardiomyopathy? If you have high cholesterol or hypertension, take the medicines that have been prescribed for you to treat these conditions. Have a healthy lifestyle with regular exercise and a healthy diet (high in fruits and vegetables). If you smoke, try to quit. Tell your healthcare provider if you need help quitting. Follow any other recommendations from your healthcare provider. Copyright 2014 [employer] and/or one of its subsidiaries. All rights reserved. documented in this encounterFulton [facility]11-19-2024 Nurse Note* Aga Hector LPN - 09/05/2024 8:12 AM EST Patient denies cardiac complaints or symptoms. [facility]11-[facility] Nurse Note* Aga Hector LPN - 09/05/2024 8:12 AM EST Patient denies cardiac complaints or symptoms. documented in this encounterFulton County [facility] Center08-23-2024 NoteHNO ID: [id number] Author: JACKSON LANDIN APRN.BRANDEN Service: ? Author Type: Nurse Practitioner Type: Progress Notes Filed: 06/09/2024 14:26 Note Text: Wound check reviewed and signed. Jackson Landin APRN.CNP June 09, 2024 2:26 [facility]08-23-2024 History of Present illness Narrative* Jackson Landin APRN.CNP - 06/09/2024 2:26 PM EDT Wound check reviewed and signed. Jackson Landin APRN.CNP June 09, 2024 2:26 PM * Flori Dhillon RN - 06/09/2024 8:02 AM EDT Lt ACW Aquacel dressing removes with use of adhesive dissolver. Incision is well approximated without bleeding, drainage or redness. Moderate edema just at device site. Pt denies pain at site or fever/chills. Pt voices understanding that he may shower but not submerge in water. Pt encouraged to keep incision open to air. Pt discouraged from applying any ointments or lotions to incision. Pt will call our office should incision develop redness or drainage. Pt will call our office with new pain or fever. Flori Dhillon RN documented in this encounterFulton County [facility] Center08-23-2024 NoteHNO ID: [id number] Author: FLORI DHILLON, RN Service: ? Author Type: Registered Nurse Type: Progress Notes Filed: 06/09/2024 14:26 Note Text: Lt ACW Aquacel dressing removes with use of adhesive dissolver. Incision is well approximated without bleeding, drainage or redness. Moderate edema just at device site. Pt denies pain at site or fever/chills. Pt voices understanding that he may shower but not submerge in water. Pt encouraged to keep incision open to air. Pt discouraged from applying any ointments or lotions to incision. Pt will call our office should incision develop redness or drainage. Pt will call our office with new pain or fever. Flori Dhillon [facility]07-26-2024 Telephone encounter Note * Telephone Encounter - Flori Dhillon RN - 05/12/2024 2:37 PM EDT Pt's name has been added to astor procedure board. Flori Dhillon RN [facility]07-26-2024 Miscellaneous Notes* Telephone Encounter - Flori Dhillon RN - 05/12/2024 2:37 PM EDT Pt's name has been added to astor procedure board. Flori Dhillon RN * Telephone Encounter - Darron Busch - 05/12/2024 2:25 PM EDT Patient is scheduled for a gen change on 05/[address] Monreal. The hospital will call the day before between 2-5pm with your arrival time. You should not eat or drink after midnight the day before the procedure. 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 You should continue to take medications as prescribed the morning of the procedure with just a sip of water but stop furosemide the day of the procedure. Spoke with Himanshu Madden (EC/Daughter) on May 12, 2024. Informed of instructions as stated above. Patients daughter verbalized understanding. Darron Busch documented in this encounterFulton County [facility] Center07-26-2024 Telephone encounter Note * Telephone Encounter - Darron Busch - 05/12/2024 2:25 PM EDT Patient is scheduled for a gen change on 05/[address] Monreal. The hospital will call the day before between 2-5pm with your arrival time. You should not eat or drink after midnight the day before the procedure. 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 You should continue to take medications as prescribed the morning of the procedure with just a sip of water but stop furosemide the day of the procedure. Spoke with Himanshu Madden (EC/Daughter) on May 12, 2024. Informed of instructions as stated above. Patients daughter verbalized understanding. Darron Busch [facility]07-25-[facility] Instructions* Patient Instructions* Pat Monreal MD - 05/11/2024 11:34 AM EDT We discussed about the generator replacement procedure done under conscious sedation and is an outpatient procedure. We discussed about the potential risk of infection which is her biggest concern. We discussed that other risks such as bleeding or lead malfunction are low. We discussed about the postprocedure care and follow-up. To stop furosemide on the day of the procedure. documented in this encounterFulton County [facility] Center07-25-2024 NoteHNO ID: [id number] Author: PAT MONREAL MD Service: ? Author Type: Physician Type: Progress Notes Filed: 05/11/2024 11:35 Note Text: Heart and Vascular [facility] SECTION OF CARDIAC PACING and ELECTROPHYSIOLOGY OUTPATIENT VISIT DATE May 11, 2024 OUTPATIENT VISIT TYPE NEW PRIMARY CARE PHYSICIAN: To use this Smartlink, specify the provider ID whose address you want to display, e.g., .PROVADDR[1 (where 1 is the provider ID). REFERRING PHYSICIAN: No referring provider defined for this encounter. CARD New Patient Consult (Bacteriology Research Assistant ref for gen change) HISTORY OF PRESENT ILLNESS: Vincent Madden is a 64 year old year old MALE and is referred for management of .ICD as it reached Replacement time 04/22/24 HE has a h/o Htn, LBBB, NICM 2012, Dilated CMP s/p MDT BIV ICD for Primary Prevention 02/26/2016 with a 5072 in RA, 4298 in CS posterolateral branch and 6947 in RV. No history of ICD shocks Cath 2010 non obst CAD TTE 06/12/21 LA vol 58 ANA MARIA 28 EF 45% NM SPECT 06/17/21 nl perfusion, no scar, nl LV RV size, nl LVSF, EF 56% The device check 04/30/24 showed BiV pacing 100% and activity 7 h/d He says he is doing well from a cardiac perspective no chest pain palpitations dizziness swelling in the feet loss of consciousness fall. Takes his medicines regularly. No history of myocardial infarction stroke TIA diabetes liver disease kidney disease cancer blood clots bleeding problems, thyroid disease With buprenorphine which he received at the time of back surgery he says it made him sick Social History - Lives at home with . Quit smoking over 30 years ago. NO ETOH.Is active at home and does yard work Family history father had heart disease was in his 80s when he . Mother had cancer and heart disease at 86 ICD check 04/30/24 - ICD remote interrogation. Presenting EGM p-synch RV paced @ 87 ppm. No VT/VF events and no mode switch episodes since last check. Sensing and impedance values stable. EGMs w/o noise. Device has reached Recommended replacement time as of 04/22/24, report sent for review and scheduling. PAST MEDICAL HISTORY Diagnosis Date Abnormal EKG Atherosclerotic heart disease of [place] coronary artery without angina pectoris Automatic implantable cardioverter-defibrillator in situ BBB (bundle branch block) Benign neoplasm of colon Cardiomegaly Cardiomyopathy (HCC) NIDCM CHF (congestive heart failure) systolic 12/02/2012 Chronic pain of left thumb Coronary arteriosclerosis Dilated cardiomyopathy (HCC) 12/02/2012 Latest Echo 05/2016 with EF 40% can be found in Care Everywhere Dyspnea Epigastric pain Fatigue GERD (gastroesophageal reflux disease) Hiatal hernia History of colonic polyps 08/30/2017 Added automatically from request for surgery [id number] HTN (hypertension) 11/19/2023 LBBB (left bundle branch block) Left ventricular failure (HCC) Obesity 12/05/2012 Palpitations SOB (shortness of breath) pt stated before pacemaker and defib placed Tendinitis of right rotator cuff 09/02/2020 PAST SURGICAL HISTORY Procedure Laterality Date CARDIAC CATH Left 06/2011 COLONOSCOPY SCREENING N/A 12/09/2023 COLONOSCOPY W/BIOPSY SINGLE/MULTIPLE 12/24/2017 EGD TRANSORAL BIOPSY SINGLE/MULTIPLE 12/24/2017 EGD W/O BRSH SPEC VARICIES INJ N/A 12/09/2023 LOW BACK DISK SURGERY PACEMAKER 02/26/2016 Medtronic pacemaker and defib PAST SURGICAL HISTORY OF pin removed from the left thumb Family History Problem Relation Age of Onset Coronary Artery Disease Mother a. CABG, carotid artery endarterectomy bilateral Breast Cancer Mother Heart Mother Coronary Artery Disease Father a. CABG, valve replacement Heart Father None Brother 3 brothers and one sister a.OK Cancer Brother one brother a. 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 Take 1 tablet by mouth daily esomeprazole (NEXIUM) 40 mg capsule Take 1 capsule by mouth once daily. furosemide (LASIX) 40 mg tablet Take 1 tablet by mouth once daily. lisinopril (ZESTRIL) 20 mg tablet Take 1 tablet by mouth two times a day. spironolactone (ALDACTONE) 25 mg tablet Take 1 tablet by mouth once daily. atorvastatin (LIPITOR) 20 mg tablet Take 1 tablet by mouth once daily. diclofenac (VOLTAREN) 1 % topical gel Apply 2 g to affected area four times daily. meclizine (ANTIVERT) 25 mg tab Take 1 tablet by mouth three times daily as needed. topiramate (TOPAMAX) 100 mg tablet Take 1 tablet by mouth daily at bedtime. gabapentin (NEURONTIN) 600 mg tablet Take 600 mg by mouth three times a day. aspirin, enteric coated (ADULT LOW DOSE ASPIRIN) 81 mg EC tablet Take 1 tablet by m (more content not included)...[facility]07-25-2024 History of Present illness Narrative* Pat Monreal MD - 05/11/2024 11:07 AM EDT Images from the original note were not included. Heart and Vascular [facility] SECTION OF CARDIAC PACING and ELECTROPHYSIOLOGY OUTPATIENT VISIT DATE May 11, 2024 OUTPATIENT VISIT TYPE NEW PRIMARY CARE PHYSICIAN: To use this Smartlink, specify the provider ID whose address you want to display, e.g., .PROVADDR[1(where 1 is the provider ID). REFERRING PHYSICIAN: No referring provider defined for this encounter. CARD New Patient Consult (Bacteriology Research Assistant ref for gen change) HISTORY OF PRESENT ILLNESS: Vincent Madden is a 64 year old year old MALE and is referred for management of .ICD as it reached Replacement time 04/22/24 HE has a h/o Htn, LBBB, NICM 2012, Dilated CMP s/p MDT BIV ICD for Primary Prevention 02/26/2016 with a 5072 in RA, 4298 in CS posterolateral branch and 6947 in RV. No history of ICD shocks Cath 2010 non obst CAD TTE 06/12/21 LA vol 58 ANA MARIA 28 EF 45% NM SPECT 06/17/21 nl perfusion, no scar, nl LV RV size, nl LVSF, EF 56% The device check 04/30/24 showed BiV pacing 100% and activity 7 h/d He says he is doing well from a cardiac perspective no chest pain palpitations dizziness swelling in the feet loss of consciousness fall. Takes his medicines regularly. No history of myocardial infarction stroke TIA diabetes liver disease kidney disease cancer blood clots bleeding problems, thyroid disease With buprenorphine which he received at the time of back surgery he says it made him sick Social History - Lives at home with . Quit smoking over 30 years ago. NO ETOH.Is active at homeand does yard work Family history father had heart disease was in his 80s when he . Mother had cancer and heart disease at 86 ICD check 04/30/24 - ICD remote interrogation. Presenting EGM p-synch RV paced @ 87 ppm. No VT/VF events and no mode switch episodes since last check. Sensing and impedance values stable. EGMs w/o noise. Device has reached Recommended replacement time as of 04/22/24, report sent for review and scheduling. PAST MEDICAL HISTORY Diagnosis Date Abnormal EKG Atherosclerotic heart disease of [place] coronary artery without angina pectoris Automatic implantable cardioverter-defibrillator in situ BBB (bundle branch block) Benign neoplasm of colon Cardiomegaly Cardiomyopathy (HCC) NID CHF (congestive heart failure) systolic 12/02/2012 Chronic pain of left thumb Coronary arteriosclerosis Dilated cardiomyopathy (HCC) 12/02/2012 Latest Echo 05/2016 with EF 40% can be found in Care Everywhere Dyspnea Epigastric pain Fatigue GERD (gastroesophageal reflux disease) Hiatal hernia History of colonic polyps 08/30/2017 Added automatically from request for surgery [id number] HTN (hypertension) 11/19/2023 LBBB (left bundle branch block) Left ventricular failure (HCC) Obesity 12/05/2012 Palpitations SOB (shortness of breath) pt stated before pacemaker and defib placed Tendinitis of right rotator cuff 09/02/2020 PAST SURGICAL HISTORY Procedure Laterality Date CARDIAC CATH Left 06/2011 COLONOSCOPY SCREENING N/A 12/09/2023 COLONOSCOPY W/BIOPSY SINGLE/MULTIPLE 12/24/2017 EGD TRANSORAL BIOPSY SINGLE/MULTIPLE 12/24/2017 EGD W/O BRSH SPEC VARICIES INJ N/A 12/09/2023 LOW BACK DISK SURGERY PACEMAKER 02/26/2016 Medtronic pacemaker and defib PAST SURGICAL HISTORY OF pin removed from the left thumb Family History Problem Relation Age of Onset Coronary Artery Disease Mother a. CABG, carotid artery endarterectomy bilateral Breast Cancer Mother Heart Mother Coronary Artery Disease Father a. CABG, valve replacement Heart Father None Brother 3 brothers and one sister a.OK Cancer Brother one brother a. 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 Take 1 tablet by mouth daily esomeprazole (NEXIUM) 40 mg capsule Take 1 capsule by mouth once daily. furosemide (LASIX) 40 mg tablet Take 1 tablet by mouth once daily. lisinopril (ZESTRIL) 20 mg tablet Take 1 tablet by mouth two times a day. spironolactone (ALDACTONE) 25 mg tablet Take 1 tablet by mouth once daily. atorvastatin (LIPITOR) 20 mg tablet Take 1 tablet by mouth once daily. diclofenac (VOLTAREN) 1 % topical gel Apply 2 g to affected area four times daily. meclizine (ANTIVERT) 25 mg tab Take 1 tablet by mouth three times daily as needed. topiramate (TOPAMAX) 100 mg tablet Take 1 tablet by mouth daily at bedtime. gabapentin (NEURONTIN) 600 mg tablet Take 600 mg by mouth three times a day. aspirin, enteric coated (ADULT LOW DOSE ASPIRIN) 81 mg EC tablet Take 1 tablet by mouth once daily. REVIEW OF SYSTEMS: General - Appetite is normal. No fever chills Respiratory - No cough wheezing pleuritic pain GI - No nausea vomiting diarrhea No burning micturition. Hematology - No external bleeding. No recent diagnosis of cancer Neurology - No falls, No new unilateral numbness tingling weakness Musculoskeletal - No joint swellings pain No loose teeth or tooth symptoms PHYSICAL EXAMINATION: BP 132/84 (BP Site: Right Arm, BP Position: Sitting, BP Cuff Size: Large Adult) Pulse 72 Resp 18 Ht 5' 8 (1.727 m) Wt 188 lb (85.3 kg) SpO2 97% BMI 28.59 kg/m Normal build. Adequately nourished Comfortable at rest. Neck supple. Carotid upstroke is normal Mean JVP is normal Chest is symmetrical, Lungs Good bilateral air entry. Cardiac Rhythm is regular normal intensity S1. Normal S2. Audible murmur left- sided ICD site is well-healed few prominent veins anterior chest wall Extremities - no edema Neurological -alert oriented x 3 speech is normal EKG 05/11/24 . Atrial sensed ventricular paced rhythm 63 bpm NM 180 ms BiV paced QRS D1 40 ms QT 436 QTc [address]-T wave changes secondary to pacing I have personally reviewed the Electrocardiogram PLAN AND RECOMMENDATIONS: Nonischemic cardiomyopathy recovered ejection fraction on guideline directed medical therapy functional class I follows with Dr. Louis BiV ICD -his device is functioning appropriately. It is reached elective replacement time. We discussed about the generator replacement procedure done under conscious sedation and is an outpatient procedure. We discussed about the potential risk of infection which is her biggest concern. We discussed that other risks such as bleeding or lead malfunction are low. We discussed about the postprocedure care and follow-up. To stop furosemide on the day of the procedure. This will be scheduled in the next few weeks. Pat Monreal MD This note was partially generated using [employer] voice recognition system. documented [facility]* Oriana Mata MA - 05/11/2024 10:58 AM EDT Patient denies any cardiac issues or symptoms. [facility]* Oriana Mata MA - 05/11/2024 10:58 AM EDT Patient denies any cardiac issues or symptoms. documented in this encounterF[facility]07-[facility]24 Telephone encounter Note * Telephone Encounter - Darron Busch - 05/01/2024 12:42 PM EDT OV scheduled to discuss gen change Darron Busch [facility] Miscellaneous Notes* Telephone Encounter - Darron Busch - 05/01/2024 12:42 PM EDT OV scheduled to discuss gen change Darron Busch * Telephone Encounter - Sandi Arriaga ST - 05/01/2024 11:08 AM EDT Patients device has reached BILLET WORKER as of 04/22/24 and should be changed within 3 months. Thank you Sandi Arriaga CVT documented in this encounterFult[facility]07-[facility]-2024 Telephone encounter Note * Telephone Encounter - Sandi Arriaga ST - 05/01/2024 11:08 AM EDT Patients device has reached BILLET WORKER as of 04/22/24 and should be changed within 3 months. Thank you Sandi Arriaga CVT [facility] Telephone encounter Note* Telephone Encounter - Connie Castillo LPN - 04/14/2024 2:46 PM EDT Patient's request for medication is as follows: Requested Prescriptions Pending Prescriptions Disp Refills carvedilol (COREG) 12.5 mg tablet [Pharmacy Med Name: Carvedilol 12.5 MG Oral Tablet] 180 tablet 3 Sig: Take 1 tablet by mouth twice daily Patient last seen on 02/09/2024. Prescription(s) as above. Please process accordingly. Connie Castillo LPN [facility] Miscellaneous Notes* Telephone Encounter - Connie Castillo LPN - 04/14/2024 2:46 PM EDT Patient's request for medication is as follows: Requested Prescriptions Pending Prescriptions Disp Refills carvedilol (COREG) 12.5 mg tablet [Pharmacy Med Name: Carvedilol 12.5 MG Oral Tablet] 180 tablet 3 Sig: Take 1 tablet by mouth twice daily Patient last seen on 02/09/2024. Prescription(s) as above. Please process accordingly. Connie Castillo LPN documented in this encounterFult[facility]04-24-2024 Instructions* Patient Instructions* Tomasz Louis MD - 02/09/2024 8:08 AM EDT Please have blood work done after an overnight fast at some point in the next month or 2 and we will call you with results I ordered an echocardiogram to be done in about 11 months: You should eventually hear from scheduling documented in this encounterF[facility]04-24-20[facility] Nurse Note* Oriana Mata MA - 02/09/2024 7:56 AM EDT Patient denies any cardiac issues or symptoms. [facility]* Oriana Mata MA - 02/09/2024 7:56 AM EDT Patient denies any cardiac issues or symptoms. documented in this encounterF[facility]04-22-2024 History of Present illness Narrative* Tomasz Louis MD - 02/07/2024 12:42 PM EDT Chief Complaint No chief complaint on file. History of Present Illness: Vincent Madden is a 63 year old male here to follow-up dilated cardiomyopathy. He really is asymptomatic with any chest pain chest tightness or dyspnea no edema no history of claudication no stroke orTIA notes ICD firings no palpitations or syncope no upper or lower GI bleeding or severe bruising generally feeling quite well PAST MEDICAL HISTORY Diagnosis Date Abnormal EKG Atherosclerotic heart disease of [place] coronary artery without angina pectoris Automatic implantable cardioverter-defibrillator in situ BBB (bundle branch block) Benign neoplasm of colon Cardiomegaly Cardiomyopathy (HCC) NIDCM CHF (congestive heart failure) systolic 12/02/2012 Chronic pain of left thumb Coronary arteriosclerosis Dilated cardiomyopathy (HCC) 12/02/2012 Latest Echo 05/2016 with EF 40% can be found in Care Everywhere Dyspnea Epigastric pain Fatigue GERD (gastroesophageal reflux disease) Hiatal hernia History of colonic polyps 08/30/2017 Added automatically from request for surgery [id number] HTN (hypertension) 11/19/2023 LBBB (left bundle branch block) Left ventricular failure (HCC) Obesity 12/05/2012 Palpitations SOB (shortness of breath) pt stated before pacemaker and defib placed Tendinitis of right rotator cuff 09/02/2020 PAST SURGICAL HISTORY Procedure Laterality Date CARDIAC CATH Left 06/2011 COLONOSCOPY SCREENING N/A 12/09/2023 COLONOSCOPY W/BIOPSY SINGLE/MULTIPLE 12/24/2017 EGD TRANSORAL BIOPSY SINGLE/MULTIPLE 12/24/2017 EGD W/O BRSH SPEC VARICIES INJ N/A 12/09/2023 LOW BACK DISK SURGERY PACEMAKER 02/26/2016 Medtronic pacemaker and defib PAST SURGICAL HISTORY OF pin removed from the left thumb FAMILY HISTORY Problem Relation Age of Onset Coronary Artery Disease Mother a. CABG, carotid artery endarterectomy bilateral Breast Cancer Mother Heart Mother Coronary Artery Disease Father a. CABG, valve replacement Heart Father None Brother 3 brothers and one sister a.OK Cancer Brother one brother a. Colon Cancer Brother other (scd) Other uncle and aunt scd other (Heart Attack) Other Heart Paternal Uncle x2 Heart Paternal Aunt Social History Tobacco Use Smoking status: Former Packs/day: 1.00 Years: 10.00 Additional pack years: 0.00 Total pack years: 10.00 Types: Cigarettes Quit date: 12/05/2006 Years since quittin.1 Smokeless tobacco: Never Vaping Use Vaping Use: Never used Substance Use Topics Alcohol use: No Comment: heavy alcohol consumption and quit in 1987 Drug use: No ALLERGIES Allergen Reactions Buprenorphine Other: See Comments Medications: Current Outpatient Medications Medication Sig Dispense Refill carvedilol (COREG) 12.5 mg tablet Take 1 tablet by mouth twice daily 180 tablet 0 Tadalafil (CIALIS) 5 mg tablet Take 1 tablet by mouth once daily. Take 1 tablet by mouth daily 30 tablet 11 esomeprazole (NEXIUM) 40 mg capsule Take 1 capsule by mouth once daily. 30 capsule 11 furosemide (LASIX) 40 mg tablet Take 1 tablet by mouth once daily. 90 tablet 0 lisinopril (ZESTRIL) 20 mg tablet Take 1 tablet by mouth two times a day. 180 tablet 0 spironolactone (ALDACTONE) 25 mg tablet Take 1 tablet by mouth once daily. 90 tablet 0 atorvastatin (LIPITOR) 20 mg tablet Take 1 tablet by mouth once daily. 90 tablet 0 diclofenac (VOLTAREN) 1 % topical gel Apply 2 g to affected area four times daily. 450 g 0 meclizine (ANTIVERT) 25 mg tab Take 1 tablet by mouth three times daily as needed. 90 tablet 2 topiramate (TOPAMAX) 100 mg tablet Take 1 tablet by mouth daily at bedtime. 30 tablet 4 gabapentin (NEURONTIN) 600 mg tablet Take 600 mg by mouth three times daily. (Patient not taking: Reported on 01/07/2024) aspirin, enteric coated (ADULT LOW DOSE ASPIRIN) 81 mg EC tablet Take 1 tablet by mouth once daily.0 No current facility-administered medications for this visit. Review of Systems Constitutional: Negative for chills, fever, malaise/fatigue and weight loss. Respiratory: Negative for shortness of breath and wheezing. Denies Chest Tightness Cardiovascular: Negative. Gastrointestinal: Negative for abdominal pain, blood in stool and nausea. Genitourinary: Negative for hematuria. Musculoskeletal: Negative for falls. Neurological: Negative for dizziness, speech change and loss of consciousness. Denies syncope Endo/Heme/Allergies: Does not bruise/bleed easily. Physical Examination: Vitals: BP 125/84 (BP Site: Left Arm, BP Position: Sitting, BP Cuff Size: Large Adult) Pulse 70 Resp 18 Ht 5' 8 (1.727 m) Wt 188 lb (85.3 kg) SpO2 97% BMI 28.59 kg/m Last 2 Encounter Wt Readings: Date: Wt: 01/07/2024 193 lb 12.6 oz (87.9 kg) 12/20/2023 185 lb (83.9 kg) Physical Exam General: He is not in acute distress. Appearance: He is not diaphoretic. HENT: Head: Normocephalic. Balding male hair pattern Eyes: Comments: Pupils equal eyelids appear normal Neck: Thyroid: No thyromegaly. Vascular: No carotid bruit or JVD. Cardiovascular: Rate and Rhythm: Regular rhythm. Pulses: Carotid pulses are 2+ on the right side and 2+ on the left side. Radial pulses are 2+ on the right side and 1-2+ on the left side. Bilateral posterior tibial pulses 2+ Heart sounds: Heart sounds are distant. No murmur heard. No friction rub. No gallop. Comments: [place] nonpalpable, no RV lift Pulmonary: Use or accessory muscle use comments: Healed ICD on the left Abdominal: Palpations: Abdomen is soft. Nontender no obvious hepatomegaly Musculoskeletal: Right lower leg: No edema. Left lower leg: No edema. Skin: General: Skin is warm and dry. Findings: No ecchymosis or rash. Neurological: Normal mentation follows commands. Psychiatric: Mood and Affect: Slightly depressed affect Pertinent Labs: CBC: Hemoglobin (g/dL) Date Value 07/19/2023 13.7 HGB (g/dL) Date Value 01/31/2020 12.6 Hematocrit (%) Date Value 07/19/2023 39.8 01/31/2020 35.9 WBC Date Value 07/19/2023 7.13 k/uL 01/31/2020 16.7 thou/cmm Platelet Count Date Value 07/19/2023 187 k/uL 01/31/2020 215 thou/cmm BMP: Glucose (mg/dL) Date Value 07/19/2023 106 01/31/2020 104 Potassium Date Value 07/19/2023 4.8 mmol/L 01/31/2020 3.8 mEq/L Sodium Date Value 07/19/2023 139 mmol/L 01/31/2020 139 mEq/L Chloride Date Value 07/19/2023 104 mmol/L 01/31/2020 104 mEq/L CO2 Date Value 07/19/2023 27 mmol/L 01/31/2020 26 mEq/L Creatinine (mg/dL) Date Value 07/19/2023 1.03 01/31/2020 1.08 BUN (mg/dL) Date Value 07/19/2023 19 01/31/2020 16 Anion Gap Date Value 07/19/2023 8 mmol/L 01/31/2020 13 Calcium (mg/dL) Date Value 01/31/2020 9.0 Calcium, Total (mg/dL) Date Value 07/19/2023 9.7 INR: TSH: No results found for: TSHREFL Lipid Profile: Cholesterol, Total Date Value Ref Range Status 06/19/2021 225 (H) <200 mg/dL Final Comment: <200 mg/dL, Desirable 200-239 mg/dL, Borderline high >239 mg/dL, High HDL Cholesterol Date Value Ref Range Status 06/19/2021 42 >39 mg/dL Final Comment: 40-59 mg/dL, Acceptable >59 mg/dL, High: Negative risk factor for coronary heart disease <40 mg/dL, Low: Positive risk factor for coronary heart disease LDL Cholesterol Date Value Ref Range Status 06/19/2021 164 (H) <100 mg/dL Final Comment: <100 mg/dL, Optimal 100-129 mg/dL, Near optimal/above optimal 130-159 mg/dL, Borderline high 160-189 mg/dL, High >189 mg/dL, Very high Secondary prevention optimal LDL Cholesterol levels are recommended to be < 70 mg/dL Triglyceride Date Value Ref Range Status 06/19/2021 97 <150 mg/dL Final Comment: <150 mg/dL, Normal 150-199 mg/dL, Borderline high 200-499 mg/dL, High >499 mg/dL, Very high Hemoglobin A1C: No results found for: HGBA1C Most Recent Cardiac Testing Assessment and Plan: 1. Dilated cardiomyopathy: Currently asymptomatic and doing well. We did a heart cath about 5 yearsago because of persistent dyspnea. He had a normal BNP and a normal D-dimer and I did not have a high suspicion for recurrent heart failure. On that cath coronaries showed no obstructive disease. There was a cardiac index of 2.25. Wedge pressure mean of 12 PA systolic of 30 LVEF 50 to 55% -this is r eally suggested that he probably was not having a lot of symptoms due to heart failure although we did not do any stress in the [employer]. His echo around that time showed EF 45% grade 1 diastolic dysfunction and no pulm hypertension -when he is doing well and I will simply see him back in a year and recheck an echo before he returns. If he starts developing symptoms I can certainly uptitrate his medical therapy and add some meds but he really does not like taking meds and since he is currently doing quite well I do not see any indication to do that. 2. 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 Per patient his device is getting toward TONNY so he may need a new generator this year. No ICD firings l He will also follow-up with the EP service Dr. Monreal for his ICD. 2. Lipids: LDL previously 164 but no recent lipids he has not required statin therapy -I will checklab work 3. Extobacco: Quit about 21 years ago -Little or no COPD 4. Hypertension-currently well-controlled with goal blood pressure 130/80 or lower 5. Health maintenance: Previously encouraged him to find a PCP Exam, assessment and plan from prior note, updated with changes Electronically signed by Tomasz Louis MD on February 07, 2024, 12:42 PM documented in this encounterF[facility]04-[facility]-2024 Miscellaneous Notes* Telephone Encounter - Connie Castillo LPN - 01/18/2024 9:15 AM EDT Patient's request for medication is as follows: Requested Prescriptions Pending Prescriptions Disp Refills carvedilol (COREG) 12.5 mg tablet [Pharmacy Med Name: Carvedilol 12.5 MG Oral Tablet] 180 tablet 0 Sig: Take 1 tablet by mouth twice daily Patient last seen on 11/19/2022. Follow up on 02/09/2024. Prescription(s) as above. Please process accordingly. 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 RTC sooner for any concerns. Return to the clinic or seek care at [facility] for any worsening signs or symptoms: such as fevers, chills, worsening pain. For severe symptoms seek care at the closest ER. Plan of care, medicaiton side effects and management reviewed with patient. Healthy Habits: Recommend regular physical activity, nutrition and healthy eating habits. Consume a variety of foods every day focusing on fruits, vegetables and lean meats). Eat foods low in fat, saturated fat and cholesterol. Eat a limited amount of salt and sodium. Drink adequate amounts of water and limit sugary drinks. Exercise portion control in meal selection. Establish a mindset of a wellness approach to health. Thank you for allowing me to provide your care today. I look forward to seeing you again and maintaining your health. Jim Sherman APRN.KRYSTEN OTERO documented in this encounterFulton [facility]03-22-2024 History of Present illness Narrative* Jim Sherman APRN.KRYSTEN OTERO - 01/07/2024 3:30 PM EDT [facility] MALE PATIENT - HISTORY AND PHYSICAL EXAMINATION PATIENT: Vincent Madden (63 year old) PCP: Niki Carr MD CHIEF COMPLAINT: enlarged prostate follow up HISTORY OF PRESENT ILLNESS: 63 year old year old male with BPH/LUTS. Here for follow up appointment. Hx sig for: HTN, GERD, HLD, LBBB, Constipation Dilated Cardiomyopathy Recent colonoscopy with GI and noted his prostate was enlarged. Referred to see Urology for eval. CT of ABD completed in January 2020 - no mention of enlarged prostate. Recent PSA = 2.14 - this is his only PSA on record we have. BPH: NTF x2. That is the most bothersome symptom. Started on Cialis 5mg at last appt, but he never picked up his Rx from the pharmacy. No change in symptoms since last appt. No fhx of Prostate, bladder or kidney cancer URINARY: DAYTIME FREQUENCY: Every 2 hours NIGHTTIME FREQUENCY: 2 IRRITATIVE - BOTHERSOME FREQUENCY: Yes - URGENCY: Yes - INCONTINENCE: Stress No / Urge No OBSTRUCTIVE - FORCE OF STREAM: Average - HESITANCY: No - INTERMITTENCY: No - STRAINING: No - INCOMPLETE EMPTYING: No - DOUBLE VOIDING: No - POSTVOID DRIBBLING: No CURRENT URINARY STATUS: - INDWELLING CATHETER: No - CURRENT INTERMITTENT CATHETERIZATION: No - GROSS HEMATURIA: No - URINARY TRACT INFECTION: No Patient Entered Questionnaires: INTERNATIONAL PROSTATE SYMPTOM SCORE (I-PSS) PREVIOUS TOTAL IPSS SCORE: 21 QOL = 3 1. Incomplete emptying 3 2. Frequency 3 3. Intermittency 3 4. Urgency 1 5. Weak stream 3 6. Straining 1 7. Nocturia 3 TOTAL IPSS SCORE 17 QOL = 3 HISTORY: PAST MEDICAL HISTORY Diagnosis Date Abnormal EKG Atherosclerotic heart disease of [place] coronary artery without angina pectoris Automatic implantable cardioverter-defibrillator in situ BBB (bundle branch block) Benign neoplasm of colon Cardiomegaly Cardiomyopathy (HCC) NIDCM CHF (congestive heart failure) systolic 12/02/2012 Chronic pain of left thumb Coronary arteriosclerosis Dilated cardiomyopathy (HCC) 12/02/2012 Latest Echo 05/2016 with EF 40% can be found in Care Everywhere Dyspnea Epigastric pain Fatigue GERD (gastroesophageal reflux disease) Hiatal hernia History of colonic polyps 08/30/2017 Added automatically from request for surgery [id number] HTN (hypertension) 11/19/2023 LBBB (left bundle branch block) Left ventricular failure (HCC) Obesity 12/05/2012 Palpitations SOB (shortness of breath) pt stated before pacemaker and defib placed Tendinitis of right rotator cuff 09/02/2020 PAST SURGICAL HISTORY Procedure Laterality Date CARDIAC CATH Left 06/2011 COLONOSCOPY SCREENING N/A 12/09/2023 COLONOSCOPY W/BIOPSY SINGLE/MULTIPLE 12/24/2017 EGD TRANSORAL BIOPSY SINGLE/MULTIPLE 12/24/2017 EGD W/O BRSH SPEC VARICIES INJ N/A 12/09/2023 LOW BACK DISK SURGERY PACEMAKER 02/26/2016 Medtronic pacemaker and defib PAST SURGICAL HISTORY OF pin removed from the left thumb Social History Tobacco Use Smoking status: Former Packs/day: 1.00 Years: 10.00 Additional pack years: 0.00 Total pack years: 10.00 Types: Cigarettes Quit date: 12/05/2006 Years since quittin.1 Smokeless tobacco: Never Vaping Use Vaping Use: Never used Substance Use Topics Alcohol use: No Comment: heavy alcohol consumption and quit in 1987 Drug use: No FAMILY HISTORY Problem Relation Age of Onset Coronary Artery Disease Mother a. CABG, carotid artery endarterectomy bilateral Breast Cancer Mother Heart Mother Coronary Artery Disease Father a. CABG, valve replacement Heart Father None Brother 3 brothers and one sister a.OK Cancer Brother one brother a. Colon Cancer Brother other (scd) Other uncle and aunt scd other (Heart Attack) Other Heart Paternal Uncle x2 Heart Paternal Aunt MEDICATIONS: Current Outpatient Medications Medication Sig Tadalafil (CIALIS) 5 mg tablet Take 1 tablet by mouth once daily. Take 1 tablet by mouth daily esomeprazole (NEXIUM) 40 mg capsule Take 1 capsule by mouth once daily. carvedilol (COREG) 12.5 mg tablet Take 1 tablet by mouth two times a day. furosemide (LASIX) 40 mg tablet Take 1 tablet by mouth once daily. lisinopril (ZESTRIL) 20 mg tablet Take 1 tablet by mouth two times a day. spironolactone (ALDACTONE) 25 mg tablet Take 1 tablet by mouth once daily. atorvastatin (LIPITOR) 20 mg tablet Take 1 tablet by mouth once daily. diclofenac (VOLTAREN) 1 % topical gel Apply 2 g to affected area four times daily. meclizine (ANTIVERT) 25 mg tab Take 1 tablet by mouth three times daily as needed. topiramate (TOPAMAX) 100 mg tablet Take 1 tablet by mouth daily at bedtime. aspirin, enteric coated (ADULT LOW DOSE ASPIRIN) 81 mg EC tablet Take 1 tablet by mouth once daily. gabapentin (NEURONTIN) 600 mg tablet Take 600 mg by mouth three times daily. (Patient not taking: Reported on 01/07/2024) No current facility-administered medications for this visit. LABS: Latest Ref Rng 01/07/2024 GLUCOSE UA (POCT) Negative mg/dL Negative BILIRUBIN UA (POCT) Negative Negative KETONE UA (POCT) Negative mg/dL Negative SPECIFIC GRAVITY UA (POCT) 1.005 - 1.030 1.020 HEMOGLOBIN/BLOOD UA (POCT) Negative Negative PH UA (POCT) 4.5 - 8.0 7.0 PROTEIN UA (POCT) Negative mg/dL Negative UROBILINOGEN UA (POCT) Normal E.U./dL 1.0 NITRITE UA (POCT) Negative Negative LEUKOCYTES UA (POCT) Negative Negative COLOR UA (POCT) Yellow CLARITY UA (POCT) Clear Component Latest Ref Rng & Units 11/26/2023 GLUCOSE UA (POCT) Negative mg/dL Negative BILIRUBIN UA (POCT) Negative Negative KETONE UA (POCT) Negative mg/dL Negative SPECIFIC GRAVITY UA (POCT) 1.005 - 1.030 1.020 HEMOGLOBIN/BLOOD UA (POCT) Negative Negative PH UA (POCT) 4.5 - 8.0 7.0 PROTEIN UA (POCT) Negative mg/dL Negative UROBILINOGEN UA (POCT) Normal E.U./dL 0.2 NITRITE UA (POCT) Negative Negative LEUKOCYTES UA (POCT) Negative Negative COLOR UA (POCT) Yellow CLARITY UA (POCT) Slightly Cloudy Creatinine Creatinine Date Value Ref Range Status 07/19/2023 1.03 0.73 - 1.22 mg/dL Final 06/19/2021 1.02 0.73 - 1.22 mg/dL Final 01/31/2020 1.08 0.67 - 1.17 mg/dL Final Comment: Use of this assay is not recommended for patients undergoing treatment with phenindione, due to the potential for falsely depressed results. 07/10/2016 1.09 0.67 - 1.17 mg/dL Final PSA PSA Screening (ng/mL) Date Value 12/04/2023 2.14 OFFICE DATA: POST-VOID RESIDUAL BLADDER VOLUME: YES, 0 cc Review of Systems: PAIN ASSESSMENT: CURRENTLY HAVING NO PAIN GENERAL: No weight loss, malaise or fevers GI: No nausea, vomiting MUSCULOSKELETAL: Negative for generalized joint pain SKIN: Negative for rash HEMATOLOGY/LYMPHOLOGY: Negative for swollen nodes All other systems reviewed and noncontributory PHYSICAL EXAMINATION: VITALS: BP 114/82 Pulse 73 Temp 36.2 C (97.2 F) (Left Tympanic) Ht 172.7 cm (5' 8) Wt 87.9kg (193 lb 12.6 oz) SpO2 95% BMI 29.46 kg/m GENERAL: alert, no distress, normal affect RESPIRATORY: normal effort EXTREMITIES: normal SKIN: normal NEUROLOGIC: normal ASSESSMENT/PLAN: 1. Benign prostatic hyperplasia with urinary frequency - ICD9: 600.01, 788.41, ICD10: N40.1, R35.0 (primary diagnosis) MDM: Chronic fair control. 63y/o male with benign prostatic hyperplasia. -UA normal No change in symptoms. Failed to citrus picker his Rx from the pharmacy. Instructed to citrus picker his Rx at [facility] pharmacy. Plan: Trial of Cialis daily PVR = 0ml UA neg RTC for worsening symptoms follow up in 12 weeks - POST VOID RESIDUAL 2. Erectile dysfunction due to arterial insufficiency - ICD9: 607.84, ICD10: N52.01 Chronic - poor control Mild-Mod ED Trial of Cialis 5mg daily. follow up in 12 weeks. I spent a total of 30 minutes on the date of the service which included preparing to see the patient, [id number] patient care, completing clinical documentation, performing a medically appropriate examination, counseling and educating the patient/family/caregiver and ordering medications, tests, or procedures. This note was copied from previous note and exam dated 11/26/23. Author is Jim Sherman APRN.KRYSTEN OTEROnote reviewed and changes have been made or updates noted in the copy & paste portion of an encounter. Jim Sherman DNP, CNP Department of Urology [facility] documented in this encounterFulton [facility] Center03-22-2024 NoteHNO ID: [id number] Author: JIM SHERMAN APRN.KRYSTEN OTERO Service: ? Author Type: Nurse Practitioner Type: Progress Notes Filed: 01/07/2024 16:33 Note Text: [facility] MALE PATIENT - HISTORY AND PHYSICAL EXAMINATION PATIENT: Vincent Madden (63 year old) PCP: Niki Carr MD CHIEF COMPLAINT: enlarged prostate follow up HISTORY OF PRESENT ILLNESS: 63 year old year old male with BPH/LUTS. Here for follow up appointment. Hx sig for: HTN, GERD, HLD, LBBB, Constipation Dilated Cardiomyopathy Recent colonoscopy with GI and noted his prostate was enlarged. Referred to see Urology for eval. CT of ABD completed in January 2020 - no mention of enlarged prostate. Recent PSA = 2.14 - this is his only PSA on record we have. BPH: NTF x2. That is the most bothersome symptom. Started on Cialis 5mg at last appt, but he never picked up his Rx from the pharmacy. No change in symptoms since last appt. No fhx of Prostate, bladder or kidney cancer URINARY: DAYTIME FREQUENCY: Every 2 hours NIGHTTIME FREQUENCY: 2 IRRITATIVE - BOTHERSOME FREQUENCY: Yes - URGENCY: Yes - INCONTINENCE: Stress No / Urge No OBSTRUCTIVE - FORCE OF STREAM: Average - HESITANCY: No - INTERMITTENCY: No - STRAINING: No - INCOMPLETE EMPTYING: No - DOUBLE VOIDING: No - POSTVOID DRIBBLING: No CURRENT URINARY STATUS: - INDWELLING CATHETER: No - CURRENT INTERMITTENT CATHETERIZATION: No - GROSS HEMATURIA: No - URINARY TRACT INFECTION: No Patient Entered Questionnaires: INTERNATIONAL PROSTATE SYMPTOM SCORE (I-PSS) PREVIOUS TOTAL IPSS SCORE: 21 QOL = 3 1. Incomplete emptying 3 2. Frequency 3 3. Intermittency 3 4. Urgency 1 5. Weak stream 3 6. Straining 1 7. Nocturia 3 TOTAL IPSS SCORE 17 QOL = 3 HISTORY: PAST MEDICAL HISTORY Diagnosis Date Abnormal EKG Atherosclerotic heart disease of [place] coronary artery without angina pectoris Automatic implantable cardioverter-defibrillator in situ BBB (bundle branch block) Benign neoplasm of colon Cardiomegaly Cardiomyopathy (HCC) NIDCM CHF (congestive heart failure) systolic 12/02/2012 Chronic pain of left thumb Coronary arteriosclerosis Dilated cardiomyopathy (HCC) 12/02/2012 Latest Echo 05/2016 with EF 40% can be found in Care Everywhere Dyspnea Epigastric pain Fatigue GERD (gastroesophageal reflux disease) Hiatal hernia History of colonic polyps 08/30/2017 Added automatically from request for surgery [id number] HTN (hypertension) 11/19/2023 LBBB (left bundle branch block) Left ventricular failure (HCC) Obesity 12/05/2012 Palpitations SOB (shortness of breath) pt stated before pacemaker and defib placed Tendinitis of right rotator cuff 09/02/2020 PAST SURGICAL HISTORY Procedure Laterality Date CARDIAC CATH Left 06/2011 COLONOSCOPY SCREENING N/A 12/09/2023 COLONOSCOPY W/BIOPSY SINGLE/MULTIPLE 12/24/2017 EGD TRANSORAL BIOPSY SINGLE/MULTIPLE 12/24/2017 EGD W/O BRSH SPEC VARICIES INJ N/A 12/09/2023 LOW BACK DISK SURGERY PACEMAKER 02/26/2016 Medtronic pacemaker and defib PAST SURGICAL HISTORY OF pin removed from the left thumb Social History Tobacco Use Smoking status: Former Packs/day: 1.00 Years: 10.00 Additional pack years: 0.00 Total pack years: 10.00 Types: Cigarettes Quit date: 12/05/2006 Years since quittin.1 Smokeless tobacco: Never Vaping Use Vaping Use: Never used Substance Use Topics Alcohol use: No Comment: heavy alcohol consumption and quit in 1987 Drug use: No FAMILY HISTORY Problem Relation Age of Onset Coronary Artery Disease Mother a. CABG, carotid artery endarterectomy bilateral Breast Cancer Mother Heart Mother Coronary Artery Disease Father a. CABG, valve replacement Heart Father None Brother 3 brothers and one sister a.OK Cancer Brother one brother a. Colon Cancer Brother other (scd) Other uncle and aunt scd other (Heart Attack) Other Heart Paternal Uncle x2 Heart Paternal Aunt MEDICATIONS: Current Outpatient Medications Medication Sig Tadalafil (CIALIS) 5 mg tablet Take 1 tablet by mouth once daily. Take 1 tablet by mouth daily esomeprazole (NEXIUM) 40 mg capsule Take 1 capsule by mouth once daily. carvedilol (COREG) 12.5 mg tablet Take 1 tablet by mouth two times a day. furosemide (LASIX) 40 mg tablet Take 1 tablet by mouth once daily. lisinopril (ZESTRIL) 20 mg tablet Take 1 tablet by mouth two times a day. spironolactone (ALDACTONE) 25 mg tablet Take 1 tablet by mouth once daily. atorvastatin (LIPITOR) 20 mg tablet Take 1 tablet by mouth once daily. diclofenac (VOLTAREN) 1 % topical gel Apply 2 g to affected area four times daily. meclizine (ANTIVERT) 25 mg tab Take 1 tablet by mouth three times daily as needed. topiramate (TOPAMAX) 100 mg tablet Take 1 tablet by mouth daily at bedtime. aspirin, enteric coated (ADULT LOW DOSE ASPIRIN) 81 mg EC tablet Take 1 tablet by mouth once da (more content not included)...[facility] 12-20-2023 Instructions* Patient Instructions* Elvin Reynoso MD - 12/20/2023 3:29 PM EST Thank you for coming to see me today. It is my pleasure to take care of you. If you have any questions regarding your visit, please don't hesitate to contact us. Aim to consume about 30 grams of fiber per day. Drink more water documented in this encounterFulton County Health Center03-04-2024 History of Present illness Narrative* Elvin Reynoso MD - 12/20/2023 3:25 PM EST Vincent Madden is a 63 year old male who is here for evaluation of his recent EGD and colonoscopy. Colonoscopy he was found to have an enlarged prostate and he was referred to urology who evaluated him. He still reports some discomfort and constipation. Colonoscopy was found to have several polyps, they were benign tubular adenomas and 1 was a serrated adenoma. EGD showed some chronic inflammationof the GE junction there is no hiatal hernia. He still reports some rectal bleeding but most likelyrated to his constipation. We did review his diet and he does not appear to be eating a lot of fiber or drinking enough water. ALLERGIES Allergen Reactions Buprenorphine Other: See Comments Current Outpatient Medications Medication Sig Tadalafil (CIALIS) 5 mg tablet Take 1 tablet by mouth once daily. Take 1 tablet by mouth daily esomeprazole (NEXIUM) 40 mg capsule Take 1 capsule by mouth once daily. carvedilol (COREG) 12.5 mg tablet Take 1 tablet by mouth two times a day. furosemide (LASIX) 40 mg tablet Take 1 tablet by mouth once daily. lisinopril (ZESTRIL) 20 mg tablet Take 1 tablet by mouth two times a day. spironolactone (ALDACTONE) 25 mg tablet Take 1 tablet by mouth once daily. atorvastatin (LIPITOR) 20 mg tablet Take 1 tablet by mouth once daily. meclizine (ANTIVERT) 25 mg tab Take 1 tablet by mouth three times daily as needed. topiramate (TOPAMAX) 100 mg tablet Take 1 tablet by mouth daily at bedtime. aspirin, enteric coated (ADULT LOW DOSE ASPIRIN) 81 mg EC tablet Take 1 tablet by mouth once daily. diclofenac (VOLTAREN) 1 % topical gel Apply 2 g to affected area four times daily. gabapentin (NEURONTIN) 600 mg tablet Take 600 mg by mouth three times daily. No current facility-administered medications for this visit. PHYSICAL EXAM: BP 137/75 Pulse 78 Resp 20 Ht 5' 8 (1.73m) Wt 185 lb (83.9kg) BMI 28.14 kg/(m^2). General Appearance: Well appearing, alert, in no acute distress, well-hydrated, well nourished.. Assessment: Gastroesophageal reflux disease without esophagitis (primary encounter diagnosis) Adenomatous polyp of ascending colon Serrated polyp of colon Rectal bleeding Constipation, unspecified constipation type Family history of colon cancer Plan: ASSESSMENT/PLAN: 1. Gastroesophageal reflux disease without esophagitis - ICD9: 530.81, ICD10: K21.9 (primary diagnosis) - Discussed lifestyle modifications including losing weight, limiting caffeine, no meals three hours before sleep, and head of bed elevation -Continue PPI. 2. Adenomatous polyp of ascending colon - ICD9: 211.3, ICD10: D12.2 Status post colonoscopy with polypectomy x 4. Repeat colonoscopy 3 years. 3. Serrated polyp of colon - ICD9: 211.3, ICD10: K63.5 As above 4. Rectal bleeding - ICD9: 569.3, ICD10: K62.5 Related to his constipation. We did review that he should aim for about 30 g of fiber per day and to increase his water intake. He understood. Follow-up 2 months for reevaluation. 5. Constipation, unspecified constipation type - ICD9: 564.00, ICD10: K59.00 As above 6. Family history of colon cancer - ICD9: V16.0, ICD10: Z80.0 Routine high risk screening colonoscopy every 5 years or sooner. Medical Decision Making: Problems: Low: Stable chronic illness Data: Unique test result(s) reviewed: 2 Risk: Low: Low risk from testing/treatment Medical Decision Making Level: 3 - Low Elvin Reynoso M.D., F.A.C.S. documented in this encounterFulton [facility] Center02-14-2024 History of Present illness Narrative* Elvin Reynoso MD - 12/01/2023 8:17 AM EST documented in this encounterFulton County Health Center02-09-2024 Instructions* Patient Instructions* Jim Sherman APRN.CNP, DNP - 11/26/2023 4:02 PM EST Follow up with Jim Sherman APRN.CNP, DNP in 6 weeks Start a trial of Cialis - pending Cardiology approval. Check PSA blood test - next week. Lower urinary tract symptoms suggestive of benign prostatic enlargement. I discussed treatment options at length including r/b/a of each: To include Medication therapy and the role of further evaluation with UDS, TRUS and cysto if indicated. Phosphodiesterase-5 inhibitors, such as Cialis, are commonly used for erectile dysfunction, but when used daily, they also can relax the smooth muscle of the prostate and overactivity of the bladder muscle. Common side effects of Cialis include: dyspepsia and headache. Other side effects include: upper respiratory tract infection, back pain, myalgia, cough, and nasal congestion Return to the clinic or seek care at [facility] for any worsening signs or symptoms: such as fevers, chills, worsening pain, gross blood in urine or worsening urinary symptoms. For severe symptoms seek care at the closest ER. Plan of care, medicaiton side effects and management reviewed with patient. Healthy Habits: Recommend regular physical activity, nutrition and healthy eating habits. Consume a variety of foods every day focusing on fruits, vegetables and lean meats). Eat foods low in fat, saturated fat and cholesterol. Eat a limited amount of salt and sodium. Drink adequate amounts of water and limit sugary drinks. Exercise portion control in meal selection. Establish a mindset of a wellness approach to health. Thank you for allowing me to provide your care today. I look forward to seeing you again and maintaining your health. Jim Sherman APRN.CNP, DNP documented in this encounterFulton [facility] Center02-09-2024 History of Present illness Narrative* Jim Sherman APRN.TECHNICAL SERVICES REPRESENTATIVE, DNP - 11/26/2023 3:00 PM EST [facility] MALE PATIENT - HISTORY AND PHYSICAL EXAMINATION PATIENT: Vincent Madden (63 year old) 11/24/2023 PCP: Niki Carr MD CHIEF COMPLAINT: enlarged prostate HISTORY OF PRESENT ILLNESS: 63 year old year old male with BPH/LUTS. Main complaint is enlarged prostate. Hx sig for: HTN, GERD, HLD, LBBB, Constipation Dilated Cardiomyopathy Recent colonoscopy with GI and noted his prostate was enlarged. Referred to see Urology for eval. CT of ABD completed in January 2020 - no mention of enlarged prostate. No recent PSA. No documented PSA in the health record. NTF x2. That is the most bothersome symptom. No fhx of Prostate, bladder or kidney cancer URINARY: DAYTIME FREQUENCY: Every 2 hours NIGHTTIME FREQUENCY: 2 IRRITATIVE - BOTHERSOME FREQUENCY: Yes - URGENCY: Yes - INCONTINENCE: Stress No / Urge No OBSTRUCTIVE - FORCE OF STREAM: Average - HESITANCY: No - INTERMITTENCY: No - STRAINING: No - INCOMPLETE EMPTYING: No - DOUBLE VOIDING: No - POSTVOID DRIBBLING: No CURRENT URINARY STATUS: - INDWELLING CATHETER: No - CURRENT INTERMITTENT CATHETERIZATION: No - GROSS HEMATURIA: No - URINARY TRACT INFECTION: No Patient Entered Questionnaires: INTERNATIONAL PROSTATE SYMPTOM SCORE (I-PSS) 1)INCOMPLETE EMPTYING Over the past month, how often have you had a sensation of not emptying your bladder completely after you finished urinating? SCORE: 3- About half the time 2)FREQUENCY Over the past month, how often have you had to urinate again less than two hours after you finishedurinating? SCORE: 4- More than half the time 3)INTERMITTENCY Over the past month, how often have you found you stopped and started again several times when you urinated? SCORE: 3- About half the time 4)URGENCY Over the past month, how often have you found it difficult to postpone urination? SCORE: 3- About half the time 5)WEAK STREAM Over the past month, how often have you had a weak stream? SCORE: 4- More than half the time 6)STRAINING Over the past month, how often have you had to push or strain to begin urination SCORE: 2- less than half the time 7)NOCTURIA Over the past month, how many times did you most typically get up to urinate from the time you wentto bed at night until the time you get up in the morning? SCORE:2 TOTAL I-PSS SCORE: 21 Severe QUALITY OF LIFE DUE TO URINARY SYMPTOMS If you were to spend the rest of yur life with your urinary condition just the way it is now, how would you feel about that? 3- Mixed- equally satisfied and dissatisfied HISTORY: PAST MEDICAL HISTORY Diagnosis Date Abnormal EKG Atherosclerotic heart disease of [place] coronary artery without angina pectoris Automatic implantable cardioverter-defibrillator in situ BBB (bundle branch block) Benign neoplasm of colon Cardiomegaly Cardiomyopathy (HCC) NIDCM CHF (congestive heart failure) systolic 12/02/2012 Chronic pain of left thumb Coronary arteriosclerosis Dilated cardiomyopathy (HCC) 12/02/2012 Latest Echo 05/2016 with EF 40% can be found in Care Everywhere Dyspnea Epigastric pain Fatigue GERD (gastroesophageal reflux disease) Hiatal hernia History of colonic polyps 08/30/2017 Added automatically from request for surgery [id number] HTN (hypertension) 11/19/2023 LBBB (left bundle branch block) Left ventricular failure (HCC) Obesity 12/05/2012 Palpitations SOB (shortness of breath) pt stated before pacemaker and defib placed Tendinitis of right rotator cuff 09/02/2020 PAST SURGICAL HISTORY Procedure Laterality Date CARDIAC CATH Left 06/2011 COLONOSCOPY W/BIOPSY SINGLE/MULTIPLE 12/24/2017 EGD TRANSORAL BIOPSY SINGLE/MULTIPLE 12/24/2017 LOW BACK DISK SURGERY PACEMAKER 02/26/2016 Medtronic pacemaker and defib PAST SURGICAL HISTORY OF pin removed from the left thumb Social History Tobacco Use Smoking status: Former Packs/day: 1.00 Years: 10.00 Additional pack years: 0.00 Total pack years: 10.00 Types: Cigarettes Quit date: 12/05/2006 Years since quittin.9 Smokeless tobacco: Never Vaping Use Vaping Use: Never used Substance Use Topics Alcohol use: No Comment: heavy alcohol consumption and quit in 1987 Drug use: No FAMILY HISTORY Problem Relation Age of Onset Coronary Artery Disease Mother a. CABG, carotid artery endarterectomy bilateral Breast Cancer Mother Heart Mother Coronary Artery Disease Father a. CABG, valve replacement Heart Father None Brother 3 brothers and one sister a.OK Cancer Brother one brother a. Colon Cancer Brother other (scd) Other uncle and aunt scd other (Heart Attack) Other Heart Paternal Uncle x2 Heart Paternal Aunt MEDICATIONS: Current Outpatient Medications Medication Sig esomeprazole (NEXIUM) 40 mg capsule Take 1 capsule by mouth once daily. carvedilol (COREG) 12.5 mg tablet Take 1 tablet by mouth two times a day. furosemide (LASIX) 40 mg tablet Take 1 tablet by mouth once daily. lisinopril (ZESTRIL) 20 mg tablet Take 1 tablet by mouth two times a day. spironolactone (ALDACTONE) 25 mg tablet Take 1 tablet by mouth once daily. atorvastatin (LIPITOR) 20 mg tablet Take 1 tablet by mouth once daily. diclofenac (VOLTAREN) 1 % topical gel Apply 2 g to affected area four times daily. meclizine (ANTIVERT) 25 mg tab Take 1 tablet by mouth three times daily as needed. topiramate (TOPAMAX) 100 mg tablet Take 1 tablet by mouth daily at bedtime. gabapentin (NEURONTIN) 600 mg tablet Take 600 mg by mouth three times daily. aspirin, enteric coated (ADULT LOW DOSE ASPIRIN) 81 mg EC tablet Take 1 tablet by mouth once daily. Tadalafil (CIALIS) 5 mg tablet Take 1 tablet by mouth once daily. Take 1 tablet by mouth daily No current facility-administered medications for this visit. LABS: Component Latest Ref Rng & Units 11/26/2023 GLUCOSE UA (POCT) Negative mg/dL Negative BILIRUBIN UA (POCT) Negative Negative KETONE UA (POCT) Negative mg/dL Negative SPECIFIC GRAVITY UA (POCT) 1.005 - 1.030 1.020 HEMOGLOBIN/BLOOD UA (POCT) Negative Negative PH UA (POCT) 4.5 - 8.0 7.0 PROTEIN UA (POCT) Negative mg/dL Negative UROBILINOGEN UA (POCT) Normal E.U./dL 0.2 NITRITE UA (POCT) Negative Negative LEUKOCYTES UA (POCT) Negative Negative COLOR UA (POCT) Yellow CLARITY UA (POCT) Slightly Cloudy Creatinine Creatinine Date Value Ref Range Status 07/19/2023 1.03 0.73 - 1.22 mg/dL Final 06/19/2021 1.02 0.73 - 1.22 mg/dL Final 01/31/2020 1.08 0.67 - 1.17 mg/dL Final Comment: Use of this assay is not recommended for patients undergoing treatment with phenindione, due to the potential for falsely depressed results. 07/10/2016 1.09 0.67 - 1.17 mg/dL Final PSA No results found for: PSA OFFICE DATA: POST-VOID RESIDUAL BLADDER VOLUME: YES, 0 cc Review of Systems: PAIN ASSESSMENT: CURRENTLY HAVING NO PAIN GENERAL: No weight loss, malaise or fevers GI: No nausea, vomiting MUSCULOSKELETAL: Negative for generalized joint pain SKIN: Negative for rash HEMATOLOGY/LYMPHOLOGY: Negative for swollen nodes All other systems reviewed and noncontributory PHYSICAL EXAMINATION: VITALS: BP 167/97 Pulse 79 Ht 172.7 cm (5' 8) Wt 86.5 kg (190 lb 9.6 oz) SpO2 95% BMI 28.98 kg/m GENERAL: alert, no distress, normal affect RESPIRATORY: normal effort ABDOMEN: soft, non-tender GENITAL: - PENIS: circumcised, no penile plaques, no skin lesions - SCROTUM: no rashes, no masses, no edema - TESTES: nl size, nl consistency, no mass RECTAL: approximately 60 g prostate, nodules PELVIC FLOOR: good tone, no tenderness EXTREMITIES: normal SKIN: normal NEUROLOGIC: normal ASSESSMENT/PLAN: 1. Benign prostatic hyperplasia with urinary frequency - ICD9: 600.01, 788.41, ICD10: N40.1, R35.0 (primary diagnosis) MDM: The patient has lower urinary tract symptoms suggestive of benign prostatic hyperplasia. -UA normal/NICHOLAS Normal/No FHX of prostate cancer I discussed treatment options at length including r/b/a of each. I also discussed the role of further evaluation with UDS, TRUS and cysto if indicated. Discussed the role of pharmacotherapy, including risks, benefits and alternatives: Alpha-monik therapy [e.g. Tamsulosin] - potential risks of dizziness, asthenia, orthostasis, and retrograde ejaculation. Plan: Severe symptoms per IPSS Trial of Cialis daily Check PSA PVR = 0ml UA neg RTC for worsening symptoms follow up in 6 weeks - POST VOID RESIDUAL - URINALYSIS, WITH MICROSCOPIC - PSA/PROSTSPECAG SCRN - TADALAFIL 5 MG TABLET - daily 2. Erectile dysfunction due to arterial insufficiency - ICD9: 607.84, ICD10: N52.01 Mild-Mod ED Trial of Cialis 5mg daily. - TADALAFIL 5 MG TABLET 3. Screening for genitourinary condition - ICD9: V81.6, ICD10: Z13.89 Check PSA PVR = 0ml UA neg - POST VOID RESIDUAL - URINALYSIS, WITH MICROSCOPIC - UA DIP, URINE (POC) 4. Prostate cancer screening - ICD9: V76.44, ICD10: Z12.5 - PSA/PROSTSPECAG SCRN I spent a total of 45 minutes on the date of the service which included preparing to see the patient, [id number] patient care, completing clinical documentation, performing a medically appropriate examination, counseling and educating the patient/family/caregiver and ordering medications, tests, or procedures. Jim Sherman DNP, BRANDEN [facility] documented in this encounterFulton County [facility] Center02-02-2024 History and physical note * Matthew Carreon APRN.BRANDEN - 11/19/2023 9:00 AM EST . HISTORY AND PHYSICAL EXAMINATION SERVICE DATE: 11/19/2023 SERVICE TIME: 8:10 AM PRIMARY CARE PHYSICIAN: Niki Carr MD REASON FOR VISIT: Vincent Madden is a 63 year old male who is scheduled for EGD and colonoscopy at the request of Dr. Elvin Reynoso for routine H&P. The reason for this visit is to perform a comprehensivereview of the patient's past medical history, assess their current health status and obtain any additional testing required based on anesthesia guidelines. We will also identify any potential anesthesia problems or contraindications to the planned procedure. The patient has the following: ACTIVE PROBLEM LIST Systolic Congestive Heart Failure, [place] Class 1 (Formerly [facility]) Icd (Implantable Cardioverter-Defibrillator) in Place Dilated Cardiomyopathy (Hcc) Palpitations Coronary Arteriosclerosis Lbbb (Left Bundle Branch Block) Hypertriglyceridemia Hiatal Hernia With Gerd Carpal Tunnel Syndrome of Left Wrist Lumbosacral Radiculopathy Sciatica Displacement of Lumbar Intervertebral Disc Without Myelopathy Athscl Heart Disease of [place] Coronary Artery W/O Ang Pctrs Chronic Systolic Chf (Congestive Heart Failure) (Hcc) Preop Examination Gastroesophageal Reflux Disease Rectal Bleeding Htn (Hypertension) Subjective CHIEF COMPLAINT: Gastroesophageal reflux disease without esophagitis [K21.9] Rectal bleeding [K62.5] HPI: Patient present to [facility] for the above procedure. Patient is here for evaluation of GERD and rectal bleeding. Patient reports over the last year has been having stomach issue, would have generalized abdominal pain, also blood in stool. He reports irregular BM would go back and forth betweendiarrhea and constipation. He takes Nexium for acid reflux with no improvement on abdominal pain. Patient denies any N/V. Patient reports brother had colon cancer, no known family history of other Gastric cancer. Patient agreed to planned procedure. METS: Climb a flight of stairs or walk up a hill (5.50 METs) Patient denies any CP/SOB with above activity. PAST MEDICAL HISTORY Diagnosis Date Abnormal EKG Atherosclerotic heart disease of [place] coronary artery without angina pectoris Automatic implantable cardioverter-defibrillator in situ BBB (bundle branch block) Benign neoplasm of colon Cardiomegaly Cardiomyopathy (HCC) NIDCM CHF (congestive heart failure) systolic 12/02/2012 Chronic pain of left thumb Coronary arteriosclerosis Dilated cardiomyopathy (HCC) 12/02/2012 Latest Echo 05/2016 with EF 40% can be found in Care Everywhere Dyspnea Epigastric pain Fatigue GERD (gastroesophageal reflux disease) Hiatal hernia History of colonic polyps 08/30/2017 Added automatically from request for surgery [id number] HTN (hypertension) 11/19/2023 LBBB (left bundle branch block) Left ventricular failure (HCC) Obesity 12/05/2012 Palpitations SOB (shortness of breath) pt stated before pacemaker and defib placed Tendinitis of right rotator cuff 09/02/2020 PAST SURGICAL HISTORY Procedure Laterality Date CARDIAC CATH Left 06/2011 COLONOSCOPY W/BIOPSY SINGLE/MULTIPLE 12/24/2017 EGD TRANSORAL BIOPSY SINGLE/MULTIPLE 12/24/2017 LOW BACK DISK SURGERY PACEMAKER 02/26/2016 [employer] pacemaker and defib PAST SURGICAL HISTORY OF pin removed from the left thumb FAMILY HISTORY Problem Relation Age of Onset Coronary Artery Disease Mother a. CABG, carotid artery endarterectomy bilateral Breast Cancer Mother Heart Mother Coronary Artery Disease Father a. CABG, valve replacement Heart Father None Brother 3 brothers and one sister a.OK Cancer Brother one brother a. Colon Cancer Brother other (scd) Other uncle and aunt scd other (Heart Attack) Other Heart Paternal Uncle x2 Heart Paternal Aunt SOCIAL HISTORY: Social History Tobacco Use Smoking status: Former Packs/day: 1.00 Years: 10.00 Additional pack years: 0.00 Total pack years: 10.00 Types: Cigarettes Quit date: 12/05/2006 Years since quittin.9 Smokeless tobacco: Never Vaping Use Vaping Use: Never used Substance Use Topics Alcohol use: No Comment: heavy alcohol consumption and quit in 1987 Drug use: No Prior to Admission medications as of 11/19/23 0823 Medication Sig Last Dose Taking carvedilol (COREG) 12.5 mg tablet Take 1 tablet by mouth two times a day. 11/19/2023 Yes lisinopril (ZESTRIL) 20 mg tablet Take 1 tablet by mouth two times a day. 11/19/2023 Yes spironolactone (ALDACTONE) 25 mg tablet Take 1 tablet by mouth once daily. 11/19/2023 Yes atorvastatin (LIPITOR) 20 mg tablet Take 1 tablet by mouth once daily. 11/19/2023 Yes aspirin, enteric coated (ADULT LOW DOSE ASPIRIN) 81 mg EC tablet Take 1 tablet by mouth once daily.11/19/2023 Yes esomeprazole (NEXIUM) 40 mg capsule Take 1 capsule by mouth once daily. 11/16/2023 furosemide (LASIX) 40 mg tablet Take 1 tablet by mouth once daily. 11/17/2023 diclofenac (VOLTAREN) 1 % topical gel Apply 2 g to affected area four times daily. 11/17/2023 meclizine (ANTIVERT) 25 mg tab Take 1 tablet by mouth three times daily as needed. 09/18/2023 topiramate (TOPAMAX) 100 mg tablet Take 1 tablet by mouth daily at bedtime. 09/18/2023 gabapentin (NEURONTIN) 600 mg tablet Take 600 mg by mouth three times daily. 09/18/2023 No medication comments found. ALLERGIES Allergen Reactions Buprenorphine Other: See Comments REVIEW OF SYSTEMS: PAIN ASSESSMENT: Pain Pain Level: 0 Pain Assessment: Assessment Tool: Verbal (Numeric Rating or Visual Analog Scale) General: Denies fever, chills, and unexpected weight change. Neuro: Denies dizziness and headaches. Respiratory: No history of current cough or dyspnea, or pneumonia in the past 6 weeks. No history of respiratory/pulmonary symptoms or problems. No history of current cough or dyspnea, or pneumonia in the past 6 weeks. Cardiovascular: Positive for: AICD/PPM for CHF, CHF, HLD, Hypertension No history of angina, CHF, IA, cardiac surgery or stents. Denies chest pain or palpations. GI: See HPI. : Denies dysuria. Endocrine: No history of diabetes or thyroid conditions. Hematology: Denies history of bleeding or clotting disorder. No known autoimmune disorders. Psych: Denies anxiety/depression. Musculoskeletal: Denies joint pain and swelling. Skin: Denies open sores and rashes. Objective PHYSICAL EXAM: VITALS: BP 173/91 Pulse 80 Temp (Src) 97 (Temporal Artery) Resp 20 Ht 5' 8 (1.73m) Wt 180 lb (81.6kg) SpO2 98% BMI 27.38 kg/(m^2). O2 Therapy: Room Air General: NAD. Cooperative. Skin: Skin is warm, no rashes, and no open sores. HEENT: Normocephalic. Cardiovascular: Normal S1 & S2. No murmur. Lungs: CTA Bilaterally. No respiratory distress. Abdomen: Soft. Pos BS x4quad Extremities: No edema. Neurological: Alert and oriented to person, place, and time. Pulses: radial pulses +2 Diagnostic tests reviewed for today's visit: Lab Value Units Date High Low HB 13.7 g/dL 07/19/2023 17.0 13.0 HCT 39.8 % 07/19/2023 51.0 39.0 WBC 7.13 k/uL 07/19/2023 11.00 3.70 PLT 187 k/uL 07/19/2023 400 150 NA 139 mmol/L 07/19/2023 144 136 K 4.8 mmol/L 07/19/2023 5.1 3.7 GLUC 106 mg/dL 07/19/2023 99 74 BUN 19 mg/dL 07/19/2023 24 9 CREAT 1.03 mg/dL 07/19/2023 1.22 0.73 PTSEC No results within date range. INR No results within date range. APTT No results within date range. ALT 31 U/L 07/19/2023 54 10 AST 28 U/L 07/19/2023 40 14 TBILI 0.5 mg/dL 07/19/2023 1.3 0.2 TSH No results within date range. Lab Value Units Date High Low HCGQT No results within date range. UHCG No results within date range. HCG, BODY* No results within date range. Lab Value Units Date High Low ABORHD No results within date range. ABSCREEN No results within date range. No results found for: HBA1C Assessment/Plan Gastroesophageal reflux disease without esophagitis [K21.9] Rectal bleeding [K62.5] Patient has the following medical conditions which may affect mariama-operative course Problem List Items Addressed This Visit Cardiovascular Athscl heart disease of [place] coronary artery w/o ang pctrs Current Assessment & Plan Denies any recent chest pain, palpitation, SOB On ASA, carvedilol, atorvastatin Cardiac cath 07/21/21 Impression:1.Nonobstr CAD 2. Low normal LVEF with upper normal filling pressures and pulm pressures 3.Suspect symptoms noncardiac in nature; consider assessment and treatment for anxiety 4.R rad and brach artery spasm-would not use radial approach in future cath Recommended Treatment: Medical Therapy. Stress test 06/17/21 CONCLUSIONS: 1. SPECT Perfusion Study: Normal. 2. There is no scintigraphic evidence for inducible ischemia. 3. No evidence of scarred myocardium. 4. Left ventricle is normal in size. The left ventricle systolic function is normal. 5. Right ventricle is normal in size. 6. This is a low risk scan. Gated Stress FBP LVEF % 56 Chronic systolic CHF (congestive heart failure) (HCC) Current Assessment & Plan ICD in place, on carvedilol, Lasix, Aldactone ECHO 06/12/21 - Exam indication: Routine surveillance (>1yr) of known cardiomyopathy without a change in clinical status - The left ventricle is normal in size. There is mild left ventricular hypertrophy. Left ventricular systolic function is mildly decreased. EF = 45 5% (2D biplane) Grade I left ventricular diastolic dysfunction. Global hypokinesis. - The right ventricle is normal in size. Right ventricular systolic function is low normal. - Trace tricuspid, mitral and aortic regurgitation. - The patient has not had a prior CC echocardiographic exam for comparison. HTN (hypertension) Current Assessment & Plan On carvedilol, lisinopril, aldactone, lasix Hypertriglyceridemia Current Assessment & Plan On statin ICD (implantable cardioverter-defibrillator) in place Current Assessment & Plan Since 2015 for CHF Gastrointestinal Gastroesophageal reflux disease - Primary Current Assessment & Plan EGD today Taking Nexium Relevant Medications lidocaine 10 mg/mL (1 %) 1-2 mg injection (XYLOCAINE) lactated ringers iv infusion Other Relevant Orders EGD DIAGNOSTIC Rectal bleeding Current Assessment & Plan Colonoscopy today Relevant Orders COLONOSCOPY DIAGNOSTIC Other Preop examination Current Assessment & Plan See note for medical conditions which may affect mariama-operative course addressed in visit today. PLAN Planned Procedure: EGD and colonoscopy The Following Tests/Procedures Have Been Initiated: IV start and Maintenance fluid for the procedure. ANESTHESIA FINDINGS: Significant Anesthesia Considerations: None Planned Anesthetic: MAC Instructions Given to Patient: Patient given verbal preop instructions and voices comprehension and compliance. I spent a total of 20 minutes on the date of the service which included preparing to see the patient, [id number] patient care, completing clinical documentation, obtaining and/or reviewing separately obtained history, performing a medically appropriate examination, and counseling and educating the patient/family/caregiver. SIGNATURE: Matthew Carreon APRN.CNP PATIENT NAME: Vincent Madden DATE: November 19, 2023 TIME: 8:10 AM PAGER/CONTACT #: * Maria Isabel Oquendo DO - 11/19/2023 9:00 AM EST UPDATED HISTORY AND PHYSICAL EXAMINATION SERVICE DATE: 11/19/2023 SERVICE TIME: 8:59 AM PHYSICAL EXAM MUST BE COMPLETED ON ADMISSION The History and Physical (completed in the past 30 days) has been reviewed and the patient has beenexamined. The contents accurately reflect the patient's condition with the following additions or revisions since the H&P was completed. Examination indicates no changes. LUNGS: Lungs clear to auscultation, Good diaphragmatic excursion CARDIAC: Rate: normal Provisional Diagnosis/Treatment Plan: * No procedures listed * This H&P can be found in the Electronic Medical Record dated 11/19/23. SIGNATURE: Maria Isabel Oquendo DO PATIENT NAME: Vincent Madden DATE: November 19, 2023 TIME: 8:59 AM Associated attestation - Elvin Reynoso MD - 11/19/2023 10:56 AM EST I saw and evaluated the patient. Discussed with the resident and agree with resident's findings andplan as documented in the resident's note. documented [facility] this [facility] Nurse Note* Eve Jha RN - 11/19/2023 9:00 AM EST One Endoclip placed at cecal polyp site and 1 endoclip at ascending colon polyps site. 1 endoclip placed at sigmoid colon polyp site. documented in this encounterFulton [facility]02-02-2024 Surgical operation note* Operative Report - Elivn Reynoso MD - 11/19/2023 9:00 AM EST OPERATIVE/PROCEDURE REPORT LOG ID: [id number] SURGERY/PROCEDURE DATE: 11/19/2023 INCISION/PROCEDURE START TIME: 9:19 AM INCISION CLOSE/PROCEDURE END TIME: 10:09 AM SURGEON(S)/PROCEDURALIST(S) AND ETCHER APPRENTICE(S): Elvin Reynoso MD - Proceduralist Maria Isabel Oquendo, SURGERY/PROCEDURE(S): EGD with biopsy colonoscopy with polypectomy x 4 ANESTHESIA: Monitored Anesthesia Care SURGERY/PROCEDURE DETAILS: Patient is a 63-year-old male with GERD symptoms, history of colon polyps and rectal bleeding. Recommend proceeding with an EGD and colonoscopy. He understood the risks andbenefits of the procedures and the agreed to proceed. Patient brought to the endoscopy suite and routine labs performed. He was placed in left lateral position. After adequate MAC anesthesia was obtained the scope was inserted and passed on the esophagus. Z-line noted be at 40 cm. It was regular. There is no esophagitis. Scope was inserted retroflexedview showed a Hill grade 1. Remainder the stomach and up to the second portion of duodenum were normal. Scope was then withdrawn biopsy obtained of the antrum, gastric body and GE junction. Air was aspirated the stomach and the scope was then withdrawn. Next we turned our attention to the colon. Perianal inspection was normal digital rectal exam revealed a nodular hard prostate. Scope was then inserted and passed up to the cecum. Cecum identified appendiceal opening the ileocecal valve. There was a small cecal polyp which was removed by forceps polypectomy. Clip was applied post biopsy. There were also 2 ascending colon polyps right next to eachother these were removed with forceps polypectomy as well. A clip was placed on 1 of these. There was also a sigmoid colon polyp which removed by forceps polypectomy as well. This had a little bit ofbleeding so a clip was placed on this 1 as well. No further lesions were identified. Retroflexed view was normal. Scope was withdrawn and he tolerated the procedure well. PRE-OP/PRE-PROCEDURE DIAGNOSIS: GERD, history of colon polyps, rectal bleeding POST-OP/POST-PROCEDURE DIAGNOSIS: GERD, colon polyps ESTIMATED BLOOD LOSS: 0 ml SPECIMENS: Antral, gastric body and GE junction biopsies. Cecal polyp, ascending colon polyp x 2, sigmoid polyp IMPLANTABLE DEVICES: NONE DRAINS: None COMPLICATIONS: None PARTICIPATION IN SURGERY/PROCEDURE: Resident, under direct supervision and the remainder of the procedure was performed by the primary surgeon/proceduralist with assistance. SIGNATURE: Elvin Reynoso MD PATIENT NAME: Vincent Madden DATE: November 19, 2023 TIME: 10:17 AM documented in this encounterFulton [facility]12-04-2023 Instructions* Patient Instructions* Elvin Reynoso MD - 09/20/2023 1:19 PM EST Images from the original note were not included. Thank you for coming to see me today. It is my pleasure to take care of you. If you have any questions regarding your visit, please don't hesitate to contact us. What is a colonoscopy? A colonoscopy is an outpatient procedure in which the inside of the large intestine (colon and rectum) is examined. A colonoscopy is commonly used to evaluate gastrointestinal symptoms, such as rectal and intestinal bleeding, abdominal pain, or changes in bowel habits. Colonoscopies are also performed in individuals without symptoms to check for colorectal polyps or cancer. A screening colonoscopy is recommended for anyone 50 years of age and older, and for anyone with parents, siblings, or children with a history of colorectal cancer or polyps. What happens before a colonoscopy? To have a successful colonoscopy, your bowel must be empty so that your doctor can clearly view thecolon. To do this, it is very important to read and follow all of the instructions given to you at least 2 weeks BEFORE your exam. If your bowel is not empty, your colonoscopy will not be successful and may have to be repeated. If you feel nauseated or vomit while taking the bowel preparation, wait 30 minutes before drinking more fluid and start with small sips of solution. Some activity (such as walking) or a few soda crackers may help decrease the nausea you are feeling. If the nausea persists, call your doctor. You may experience skin irritation around the anus due to the passage of liquid stools. To prevent and treat skin irritation, you should: Apply vaseline or Desitin ointment to the skin around the anus before drinking the bowel preparation medications. These products can be purchased at any drug store. Wipe the skin after each bowel movement with disposable wet wipes instead of toilet paper. These are found in the toilet paper area of the store. Sit in a bathtub filled with warm water for 10 to 15 minutes after you finish passing a stool. After soaking, blot the skin dry with a soft cloth. Then apply vaseline or Desitin ointment to the anal area, and place a cotton ball just outside your anus to absorb leaking fluid. What happens during a colonoscopy During a colonoscopy, an experienced doctor uses a colonoscope (a long, flexible instrument about 1/2 inch in diameter) to view the lining of the colon. The colonoscope is inserted into the rectum and advanced through the large intestine. If necessary during a colonoscopy, small amounts of tissue can be removed for analysis (a biopsy) and polyps can be identified and entirely removed. In many cases, a colonoscopy allows accurate diagnosis and treatment of colorectal problems without the need for a major operation. You are asked to wear a hospital gown and an IV will be started. You are given a pain reliever and a sedative intravenously (in your vein). You will feel relaxed and somewhat drowsy. You will lie on your left side, with your knees drawn up towards your chest. A small amount of air is used to expand the colon so the physician can see the colon reece. You may feel mild cramping during the procedure. Cramping can be reduced by taking slow, deep breaths. The colonoscope is slowly withdrawn while the lining of your bowel is carefully examined. The procedure lasts from 30 minutes to 1 hour. What happens after a colonoscopy? You will stay in a recovery room for observation until you are ready for discharge. You may feel some cramping or a sensation of having gas, but this quickly passes. If sedation has been given, a responsible family member or friend must drive you home. The procedure typically lasts from 30 minutes to 1 hour. Avoid alcohol, driving, and operating machinery for 24 hours following the procedure. Unless otherwise instructed, you may immediately return to your normal diet. We recommend you wait until the day after your procedure to resume normal activities. If polyps were removed or a biopsy was taken, the doctor performing your colonoscopy will tell you when it is safe to resume taking your blood thinners. If a biopsy was taken or a polyp was removed, you may notice light rectal bleeding for one to two days after the procedure. If you have a large amount of rectal bleeding, high or persistent fevers, or severe abdominal pain within the next 2 weeks, go to your local emergency room and call the physician who performed your exam. References [employer]. Colonoscopy Accessed 11/06/2014. The [employer] [place] [employer]. Colonoscopy Accessed 11/06/2014. Copyright 4099-6766 [facility]. All rights reserved documented in this encounterF[facility]12-04-2023 History of Present illness Narrative* Elvin Reynoso MD - 09/20/2023 1:16 PM EST Vincent Madden is a 63 year old male who is here for evaluation. We last saw him about a year or so ago. At that time we were planning for an EGD and colonoscopy secondary to epigastric pain, GERD constipation and rectal bleeding. However he had some family issues and in the family and was unable to schedule. Presents today with a similar issues. Reports symptoms improved but still complaining of epigastric pain, constipation and rectal bleeding. He is taking Metamucil on a daily basis. ALLERGIES Allergen Reactions Buprenorphine Other: See Comments Current Outpatient Medications Medication Sig esomeprazole (NEXIUM) 40 mg capsule Take 1 capsule by mouth once daily. carvedilol (COREG) 12.5 mg tablet Take 1 tablet by mouth twice daily. furosemide (LASIX) 40 mg tablet Take 1 tablet by mouth once daily. lisinopril (ZESTRIL, PRINIVIL) 20 mg tablet Take 1 tablet by mouth twice daily. spironolactone (ALDACTONE) 25 mg tablet Take 1 tablet by mouth once daily. atorvastatin (LIPITOR) 20 mg tablet Take 1 tablet by mouth once daily. meclizine (ANTIVERT) 25 mg tab Take 1 tablet by mouth three times daily as needed. topiramate (TOPAMAX) 100 mg tablet Take 1 tablet by mouth daily at bedtime. gabapentin (NEURONTIN) 600 mg tablet Take 600 mg by mouth three times daily. aspirin, enteric coated (ADULT LOW DOSE ASPIRIN) 81 mg EC tablet Take 1 tablet by mouth once daily. diclofenac (VOLTAREN) 1 % topical gel Apply 2 g to affected area four times daily. No current facility-administered medications for this visit. PHYSICAL EXAM: BP 126/79 Pulse 84 Resp 20 Ht 5' 8 (1.73m) Wt 188 lb (85.3kg) BMI 28.59 kg/(m^2). General Appearance: Well appearing, alert, in no acute distress, well-hydrated, well nourished.. Abdomen: Normal abdominal exam, Abdomen soft, non-tender. Bowel sounds normal. No masses, organomegaly, Positive findings: tenderness mild epigastric. Assessment: Rectal bleeding (primary encounter diagnosis) Gastroesophageal reflux disease without esophagitis Lbbb (left bundle branch block) History of colonic polyps Icd (implantable cardioverter-defibrillator) in place Dilated cardiomyopathy (hcc) Plan: ASSESSMENT/PLAN: 1. Rectal bleeding - ICD9: 569.3, ICD10: K62.5 (primary diagnosis) I did recommend proceeding with a colonoscopy. The risks, and complications of the procedure were reviewed with him in detail including bleeding, missing the lesion and perforation requiring emergency surgery and anesthetic risks. He understood and was agreeable to proceed 2. Gastroesophageal reflux disease without esophagitis - ICD9: 530.81, ICD10: K21.9 -Continue PPI. Given his epigastric pain regarding a proceed with an EGD as well. The risks, benefits and complications were reviewed including but not limited to bleeding, infection, missing a lesion, effects of anesthesia and perforation possibly requiring an emergency surgery. He understood and was agreeable to proceed 3. LBBB (left bundle branch block) - ICD9: 426.3, ICD10: I44.7 Per cardiology 4. History of colonic polyps - ICD9: V12.72, ICD10: Z86.010 Colonoscopy 5. ICD (implantable cardioverter-defibrillator) in place - ICD9: V45.02, ICD10: Z95.810 Per cardiology 6. Dilated cardiomyopathy (HCC) - ICD9: 425.4, ICD10: I42.0 Per cardiology Medical Decision Making: Problems: Moderate: New problem with uncertain prognosis Risk: Low: Low risk from testing/treatment Medical Decision Making Level: 3 - Low Elvin Reynoso M.D., F.A.C.S. documented in this encounterF[facility]02-02-2023 Instructions* Patient Instructions* Nicol Prado APRN.CNP - 11/19/2022 8:35 AM EST Obtain fasting labs documented in this encounterFulton [facility]02-02-2023 History of Present illness Narrative* Nicol Prado APRN.TECHNICAL SERVICES REPRESENTATIVE - 11/19/2022 8:30 AM EST PRIMARY CARE PHYSICIAN: Niki Carr [address] [place] [address] Chief Complaint Patient presents with: Cardiology Follow Up : CAD HISTORY OF PRESENT ILLNESS: Mr. Madden is a 62 year old male who is known to Heriberto last seen him in the office in April 2021 patient has a history of congestive heart failure, dilated cardiomyopathy with left bundle branch block, prior alcohol use, also former smoker, hypertension status post [employer] followed by electrophysiology Dr. Monreal. As well as history of positive COVID-19 in October 2021 At his last appointment with Dr. Louis, he complained of chest discomfort Patient had a diagnostic heart catheterization July 2021 and experienced left heart catheterization through right radial however developed severe spasm, and catheter was removed, was advised no further diagnostic heart catheterization is through right radial access. Patient's LVEF 50 to 55% nonobstructive coronary disease with upper range of normal right and left heart filling pressures it was recommended he continue medicinal therapy. Remote device interrogation from November 05, 2022 shows no VT or VF events no mode switches batterylongevity approximately 16 months Patient arrives here today, he is accompanied by his . He is not always compliant with his medicinal therapy, (Coreg/lisinopril) Patient has no cardiac complaints, he has had no shortness of breath with exertion, edema or orthopnea PAST MEDICAL HISTORY Diagnosis Date Abnormal EKG Atherosclerotic heart disease of [place] coronary artery without angina pectoris Automatic implantable cardioverter-defibrillator in situ BBB (bundle branch block) Benign neoplasm of colon Cardiomegaly Cardiomyopathy (HCC) [facility] CHF (congestive heart failure) systolic 12/02/2012 Chronic pain of left thumb Coronary arteriosclerosis Dilated cardiomyopathy (HCC) 12/02/2012 Latest Echo 05/2016 with EF 40% can be found in Care Everywhere Dyspnea Epigastric pain Fatigue GERD (gastroesophageal reflux disease) Hiatal hernia History of colonic polyps 08/30/2017 Added automatically from request for surgery [id number] LBBB (left bundle branch block) Left ventricular failure (HCC) Obesity 12/05/2012 Palpitations SOB (shortness of breath) Tendinitis of right rotator cuff 09/02/2020 PAST SURGICAL HISTORY Procedure Laterality Date CARDIAC CATH Left 06/2011 COLONOSCOPY W/BIOPSY SINGLE/MULTIPLE 12/24/2017 EGD TRANSORAL BIOPSY SINGLE/MULTIPLE 12/24/2017 LOW BACK DISK SURGERY PACEMAKER 02/26/2016 Medtronic PAST SURGICAL HISTORY OF pin removed from the left thumb FAMILY HISTORY Problem Relation Age of Onset Coronary Artery Disease Mother a. CABG, carotid artery endarterectomy bilateral Breast Cancer Mother Heart Mother Coronary Artery Disease Father a. CABG, valve replacement Heart Father None Brother 3 brothers and one sister a.OK Cancer Brother one brother a. Colon Cancer Brother other (scd) Other uncle and aunt scd other (Heart Attack) Other Heart Paternal Uncle x2 Heart Paternal Aunt Social History Tobacco Use Smoking status: Former Packs/day: 1.00 Years: 10.00 Pack years: 10.00 Types: Cigarettes Quit date: 12/05/2006 Years since quittin.9 Smokeless tobacco: Never Vaping Use Vaping Use: Never used Substance Use Topics Alcohol use: No Comment: heavy alcohol consumption and quit in 1987 Drug use: No ALLERGIES Allergen Reactions Buprenorphine Other: See Comments Medications: Current Outpatient Medications Medication Sig Dispense Refill diclofenac (VOLTAREN) 1 % topical gel Apply 2 g to affected area four times daily. 450 g 0 meclizine (ANTIVERT) 25 mg tab Take 1 tablet by mouth three times daily as needed. 90 tablet 2 topiramate (TOPAMAX) 100 mg tablet Take 1 tablet by mouth daily at bedtime. 30 tablet 4 esomeprazole (NEXIUM) 40 mg capsule Take 1 capsule by mouth once daily. 30 capsule 11 gabapentin (NEURONTIN) 600 mg tablet Take 600 mg by mouth three times daily. aspirin, enteric coated (ADULT LOW DOSE ASPIRIN) 81 mg EC tablet Take 1 tablet by mouth once daily.0 carvedilol (COREG) 12.5 mg tablet Take 1 tablet by mouth twice daily. 180 tablet 3 furosemide (LASIX) 40 mg tablet Take 1 tablet by mouth once daily. 90 tablet 3 lisinopril (ZESTRIL, PRINIVIL) 20 mg tablet Take 1 tablet by mouth twice daily. 180 tablet 3 spironolactone (ALDACTONE) 25 mg tablet Take 1 tablet by mouth once daily. 90 tablet 3 atorvastatin (LIPITOR) 20 mg tablet Take 1 tablet by mouth once daily. 90 tablet 3 No current facility-administered medications for this visit. Review of Systems Constitutional: Negative for malaise/fatigue. HENT: Negative for congestion. Eyes: Negative for blurred vision. Respiratory: Negative for shortness of breath. Cardiovascular: Negative for chest pain, palpitations, orthopnea and leg swelling. Gastrointestinal: Negative for blood in stool and nausea. Musculoskeletal: Negative for back pain and falls. Neurological: Negative for dizziness, tingling, speech change, loss of consciousness and weakness. Endo/Heme/Allergies: Does not bruise/bleed easily. Psychiatric/Behavioral: The patient does not have insomnia. Physical Examination: Vitals:BP 138/84 Pulse 74 Resp 18 Ht 5' 8 (1.73m) Wt 188 lb 3.2 oz (85.4kg) SpO2 96[roomair]% BMI 28.62 kg/(m^2). Last 2 Encounter Wt Readings: Date: Wt: 02/25/2022 200 lb (90.7 kg) 08/11/2021 198 lb (89.8 kg) Physical Exam Vitals and nursing note reviewed. Constitutional: Appearance: He is not diaphoretic. HENT: Head: Atraumatic. Right Ear: Hearing normal. Left Ear: Hearing normal. Nose: No nasal deformity, mucosal edema or rhinorrhea. Eyes: Extraocular Movements: Right eye: No nystagmus. Left eye: No nystagmus. Pupils: Pupils are equal, round, and reactive to light. Neck: Vascular: No carotid bruit, hepatojugular reflux or JVD. Trachea: No tracheal deviation. Cardiovascular: Rate and Rhythm: Normal rate and regular rhythm. Chest Wall: PMI is not displaced. Pulses: Normal pulses. Heart sounds: Normal heart sounds. No murmur heard. Pulmonary: Effort: Pulmonary effort is normal. Breath sounds: Normal breath sounds. No stridor. Abdominal: General: Bowel sounds are normal. Palpations: Abdomen is soft. Tenderness: There is no abdominal tenderness. Musculoskeletal: General: Normal range of motion. Cervical back: Normal range of motion and neck supple. Skin: General: Skin is warm and dry. Coloration: Skin is not pale. Nails: There is no clubbing. Neurological: Mental Status: He is alert and oriented to person, place, and time. Cranial Nerves: No facial asymmetry. Motor: No weakness or abnormal muscle tone. Coordination: Coordination normal. Gait: Gait is intact. Gait normal. Psychiatric: Mood and Affect: Mood and affect normal. Cognition and Memory: Memory normal. Judgment: Judgment normal. Assessment and Plan: ASSESSMENT/PLAN: 1. Chronic systolic CHF (congestive heart failure) (HCC) - ICD9: 428.22, 428.0, ICD10: I50.22 Echocardiogram from 21 Ejection fraction 45% Reviewed the importance of compliant with MARTHA/beta-monik, I did review with him and his thathe could utilize Lasix as needed for symptoms. 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 Monreal 3. History of left bundle branch block No obstructive disease on heart catheterization from July 2021 4. Hypertension: Well-controlled at today's visit no changes are made to his medication regiment 5. Hyperlipidemia Patient's fasting lipid panel by Dr. Louis in June 2021 showed LDL to be 164, he was started on atorvastatin therapy Heart healthy diet structured exercise encouraged Unfortunate patient is not here today in a fasting state, will obtain fasting labs for serial review 6. Status post COVID Positive test October 2021 Nicol Prado APRN.CNP Follow up planning: Continue planned appointments with device clinic, electrophysiology, return in 1 year with general cardiology call for questions or concerns Electronically signed by Nicol Prado APRN.BRANDEN The above note was partially created using a dictation recognition software. A reasonable attempt has been made to correct any errors. I spent >20 minutes in the visit, which included a review of the patients pertinent past medicalhistory, history of present health status, review of systems, assessment & planning, counseling, and further coordination of care. documented in this [facility] Nurse Note* Aga Hector LPN - 11/19/2022 8:21 AM EST Patient denies cardiac complaints or symptoms. documented in this encounterF[facility]01-24-2023 Miscellaneous Notes* Telephone Encounter - Aga Hector LPN - 11/10/2022 10:46 AM EST Patient's request for medication is as follows: Requested Prescriptions Pending Prescriptions Disp Refills carvedilol (COREG) 12.5 mg tablet 60 tablet 0 Sig: Take 1 tablet by mouth twice daily. furosemide (LASIX) 40 mg tablet 30 tablet 0 Sig: Take 1 tablet by mouth once daily. lisinopril (ZESTRIL, PRINIVIL) 20 mg tablet 60 tablet 0 Sig: Take 1 tablet by mouth twice daily. spironolactone (ALDACTONE) 25 mg tablet 30 tablet 0 Sig: Take 1 tablet by mouth once daily. atorvastatin (LIPITOR) 20 mg tablet 30 tablet 0 Sig: Take 1 tablet by mouth once daily. Last seen 05/01/2021. Patient missed appointment scheduled for 05/04/2022. I called and spoke to Himanshu and informed her of need for over due appointment. She was transferred to clerical and over due appointment for 11/19/2022. Prescription(s) as above. Please process accordingly. Aga Hector LPN documented in this encounterFult[facility]12-15-2022 History of Present illness Narrative* RT Alen(R) - 10/01/2022 10:00 AM EST Radiology Service Progress Note PATIENT NAME: Vincent Madden DATE OF SERVICE: October 01, 2022 TIME: 10:25 AM PATIENT IDENTITY VERIFICATION COMPLETED USING TWO (2) IDENTIFIERS: Name and Date of confirmedby patient verbally and Name and Date of confirmed by identification band. FALL SCREENING: Has the patient had 2 falls in the last year or 1 fall with injury or currently using an Ambulatory Assistive Device (Walker, Cane, Wheelchair, Crutches, etc.)? No PATIENT GENDER DATA: Male PATIENT RELEVANT IMPLANT DATA REVIEWED: Yes Medtronic ICD Pacemaker: all conditions followed RADIOLOGY DEPARTMENT: MR; Exam(s) Completed: Lower MSK: Knee, right PERIPHERAL IV DATA: Not applicable SIGNED BY: RT Alen(R) October 01, 2022 10:25 AM documented in this encounterFulton [facility]06-27-2022 Miscellaneous Notes* Telephone Encounter - Nicole Carpio - 04/13/2022 2:49 PM EDT PT'S CALLED TO CANCEL HIS EGD/COLONOSCOPY SCHEDULED FOR THIS 04/15/22 SHE SAYS HE WILL BE OUT OF TOWN AND WILL CALL BACK SOMETIME IN THE FUTURE WHEN HE IS READY TO RE-SCHEDULE. documented in this encounterFulton [facility]05-11-2022 History of Present illness Narrative* Elvin Reynoso MD - 02/25/2022 3:32 PM EDT Vincent Madden is a 61 year old White male who presents with complaints of epigastric pain and discomfort and reflux disease. He had an EGD back in 2018 and was found to have esophagitis and H. pylori. He was treated for the H. pylori. He does notice the discomfort after eating red sauces. He deniesany dysphagia. He is on esomeprazole and does not notice a significant difference with the symptoms. He states he will eat some peanut butter crackers for a late breakfast and early lunch and then a salad for dinner. He also reports having chronic constipation and blood in the stool. He does take alittle bit of Metamucil. He drinks 2 cups of coffee a day. He will drink 2 bottles of diet Pepsi day. He denies any alcohol or tobacco use. He does have a cardiac history of a bundle branch block, cardiomyopathy and a pacemaker defibrillator in place. On his last colonoscopy he was also found to have colon polyp. PAST MEDICAL HISTORY Diagnosis Date Abnormal EKG Atherosclerotic heart disease of [place] coronary artery without angina pectoris Automatic implantable cardioverter-defibrillator in situ BBB (bundle branch block) Benign neoplasm of colon Cardiomegaly Cardiomyopathy (HCC) [facility] CHF (congestive heart failure) systolic 12/02/2012 Chronic pain of left thumb Coronary arteriosclerosis Dilated cardiomyopathy (HCC) 12/02/2012 Latest Echo 05/2016 with EF 40% can be found in Care Everywhere Dyspnea Epigastric pain Fatigue GERD (gastroesophageal reflux disease) Hiatal hernia History of colonic polyps 08/30/2017 Added automatically from request for surgery [id number] LBBB (left bundle branch block) Left ventricular failure (HCC) Obesity 12/05/2012 Palpitations SOB (shortness of breath) Tendinitis of right rotator cuff 09/02/2020 PAST SURGICAL HISTORY Procedure Laterality Date CARDIAC CATH Left 06/2011 COLONOSCOPY W/BIOPSY SINGLE/MULTIPLE 12/24/2017 EGD TRANSORAL BIOPSY SINGLE/MULTIPLE 12/24/2017 LOW BACK DISK SURGERY PACEMAKER 02/26/2016 [employer]tronic PAST SURGICAL HISTORY OF pin removed from the left thumb Social History Tobacco Use Smoking status: Former Smoker Packs/day: 1.00 Years: 10.00 Pack years: 10.00 Types: Cigarettes Quit date: 12/05/2006 Years since quittin.2 Smokeless tobacco: Never Used Vaping Use Vaping Use: Never used Substance Use Topics Alcohol use: No Comment: heavy alcohol consumption and quit in 1987 Drug use: No FAMILY HISTORY Problem Relation Age of Onset Coronary Artery Disease Mother a. CABG, carotid artery endarterectomy bilateral Breast Cancer Mother Heart Mother Coronary Artery Disease Father a. CABG, valve replacement Heart Father None Brother 3 brothers and one sister a.OK Cancer Brother one brother a. Colon Cancer Brother other (scd) Other uncle and aunt scd other (Heart Attack) Other Heart Paternal Uncle x2 Heart Paternal Aunt ALLERGIES Allergen Reactions Buprenorphine Other: See Comments Current Outpatient Medications Medication Sig meclizine (ANTIVERT) 25 mg tab Take 1 tablet by mouth three times daily as needed. diclofenac (VOLTAREN) 1 % topical gel Apply 2 g to affected area four times daily. atorvastatin (LIPITOR) 20 mg tablet Take 1 tablet by mouth once daily. carvedilol (COREG) 12.5 mg tablet Take 1 tablet by mouth twice daily. furosemide (LASIX) 40 mg tablet Take 1 tablet by mouth once daily. lisinopril (ZESTRIL, PRINIVIL) 20 mg tablet Take 1 tablet by mouth twice daily. spironolactone (ALDACTONE) 25 mg tablet Take 1 tablet by mouth once daily. topiramate (TOPAMAX) 100 mg tablet Take 1 tablet by mouth daily at bedtime. esomeprazole (NEXIUM) 40 mg capsule Take 1 capsule by mouth once daily. gabapentin (NEURONTIN) 600 mg tablet Take 600 mg by mouth three times daily. aspirin, enteric coated (ADULT LOW DOSE ASPIRIN) 81 mg EC tablet Take 1 tablet by mouth once daily. Current Facility-Administered Medications Medication Dose Route Frequency perflutren lipid microspheres 1.3 mL in NaCl (PF) 0.9% 10 mL injection (DEFINITY) INTRAVENOUS DIRECTED PRN sodium chloride 0.9 % (flush) 10 mL (BD POSIFLUSH) 10 mL INTRAVENOUS DIRECTED PRN REVIEW OF SYSTEMS PAIN ASSESSMENT: Negative for pain, history of chronic pain, or current treatment for a chronic pain condition. GENERAL: No weight loss, malaise or fevers NECK: Negative for lumps, goiter, pain and significant neck swelling RESPIRATORY: Negative for cough, hemoptysis, wheezing, COPD, dyspnea or shortness of breath CARDIOVASCULAR: Negative for chest pain, leg swelling, hypertension, CHF or palpitations GI: See HPI : No history of dysuria, frequency or incontinence MUSCULOSKELETAL: Negative for joint pain or swelling, back pain or muscle pain HEMATOLOGY/LYMPHOLOGY: Negative for prolonged bleeding, bruising easily or swollen nodes ENDOCRINE: Negative for cold or heat intolerance, polyuria, polydipsia and goiter PHYSICAL EXAM: BP 166/86 Pulse 77 Resp 20 Ht 5' 8 (1.73m) Wt 200 lb (90.7kg) BMI 30.42 kg/(m^2). General Appearance: Well appearing, alert, in no acute distress, well-hydrated, well nourished.. Abdomen: Normal abdominal exam, Abdomen soft, non-tender. Bowel sounds normal. No masses, organomegaly, Negative CVA tenderness. Assessment: Rectal bleeding (primary encounter diagnosis) Gastroesophageal reflux disease without esophagitis History of colonic polyps Dilated cardiomyopathy (hcc) Lbbb (left bundle branch block) Icd (implantable cardioverter-defibrillator) in place Plan: ASSESSMENT/PLAN: 1. Rectal bleeding - ICD9: 569.3, ICD10: K62.5 (primary diagnosis) Given his rectal bleeding and his history of colon polyps I did recommend proceeding with a colonoscopy. The risks, and complications of the procedure were reviewed with him in detail including bleeding, missing the lesion and perforation requiring emergency surgery and anesthetic risks. He understood and was agreeable to proceed 2. Gastroesophageal reflux disease without esophagitis - ICD9: 530.81, ICD10: K21.9 -With his continued GERD symptoms and epigastric discomfort I recommended proceeding with a EGD. The risks, benefits and complications were reviewed including but not limited to bleeding, infection, missing a lesion, effects of anesthesia and perforation possibly requiring an emergency surgery. He is agreeable to proceed 3. History of colonic polyps - ICD9: V12.72, ICD10: Z86.010 Colonoscopy as above 4. Dilated cardiomyopathy (HCC) - ICD9: 425.4, ICD10: I42.0 Management per cardiology 5. LBBB (left bundle branch block) - ICD9: 426.3, ICD10: I44.7 Management per cardiology 6. ICD (implantable cardioverter-defibrillator) in place - ICD9: V45.02, ICD10: Z95.810 Medical Decision Making: Problems: Moderate: 2+ stable chronic illnesses and New problem with uncertain prognosis Data: Unique source(s) for external note(s) reviewed: 1 Unique test(s) ordered: 2 Risk: Moderate: Moderate risk from testing/treatment Medical Decision Making Level: 4 - Moderate Elvin Reynoso M.D., F.A.C.S. documented in this encounterF[facility]05-11-2022 Instructions* Patient Instructions* Elvin Reynoso MD - 02/25/2022 10:05 AM EDT Images from the original note were not included. Thank you for coming to see me today. It is my pleasure to take care of you. If you have any questions regarding your visit, please don't hesitate to contact us. Improving Your Health with Fiber This guide provides basic information to help you start increasing dietary fiber in your diet. These are general guidelines that may be tailored to meet your needs. Fiber is an important dietary substance to help support your health. Making changes in your current eating habits will help you eat more healthfully. Most fiber-containing foods are also good sources of vitamins, minerals, and antioxidants, which offer many health benefits. A registered dietitian can provide in-depth nutrition education to help you develop a personal action plan. What is fiber? Fiber is the structural part of plant foods--such as fruits, vegetables, and grains--that our bodies cannot digest or break down. There are two kinds of fiber: soluble and insoluble. Soluble fiber: dissolves in water to form a gummy gel. It can slow down the passage of food from the stomach to the intestine. ? Examples: dried beans, oats, barley, bananas, potatoes, and soft parts of apples and pears Insoluble fiber: often referred to as roughage because it does not dissolve in water. It holds onto water, which helps produce softer, bulkier stools to help regulate bowel movements. ? Examples: whole bran, whole grain products, nuts, corn, carrots, grapes, berries, and peels of apples and pears What other things does fiber do? Research has shown that a diet rich in fiber is associated with many health benefits, including thefollowin. Lowers cholesterol-Soluble fiber has been shown to lower cholesterol by binding to bile (composed of cholesterol) and taking it out of the body. This may help reduce the risk of heart disease. 2. Better regulates blood sugar levels-A high-fiber meal slows down the digestion of food into the intestines, which may help to keep blood sugars from rising rapidly. 3. Weight control-A high-fiber diet may help keep you wood longer, which prevents overeating and hunger between meals. 4. May prevent intestinal cancer-Insoluble fiber increases the bulk and speed of food moving through the intestinal tract, which reduces time for harmful substances to build up. 5. Constipation-Constipation can often be relieved by increasing the fiber or roughage in your diet. Fiber works to help regulate bowel movements by pulling water into the colon to produce softer, bulkier stools. This action helps to promote better regularity. How much fiber should I eat? The Academy of Nutrition and Dietetics recommends consuming about 25-35 grams of total fiber per day, with 10-15 grams from soluble fiber or 14g of fiber per 1,000 calories. This can be accomplished by choosing 6 ounces of grains (3 or more ounces from whole grains), 2 cups of vegetables, and 2 cups of fruit per day (based on a 2,000 calorie/day pattern). However, as we age, fiber requirements decrease. For those over the age of 70, the recommendation for women is 21 grams and for men 30 grams of total fiber per day. Note: Eating a high-fiber diet may interfere with the absorption and effectiveness of some medications. Speak to your doctor about which medications to take with caution and when to take them. Fiber also binds with certain nutrients and carries them out of the body. To avoid this, aim for the recomm ended 20-35 grams of fiber per day. When eating a high-fiber diet, be sure to drink at least eight glasses of fluid each day. Tips for increasing dietary fiber in your diet: Add fiber to your diet slowly. Too much fiber all at once may cause cramping, bloating, and constipation. When adding fiber to your diet, be sure to increase fluids (at least 64 ounces per day) to prevent constipation. Buy bread with 2-4 grams of dietary fiber per slice. Buy cereals with at least 5 grams of dietary fiber per serving. Choose cereals with a whole grain such as whole wheat or whole grain rolled oats. Choose raw fruits and vegetables in place of juice. Choose products that have a whole grain listed as the first ingredient, not enriched flour. Whole wheat flour is a whole grain--wheat flour is not. Try alternative fiber choices such as whole buckwheat, whole wheat couscous, quinoa, bulgur, wheat germ, yeyo seeds, hemp seeds, lentil pasta, and edamame pasta. Popcorn is a whole grain. Serve it low-fat without butter for a healthier snack choice. Try whole wheat bread and whole wheat pastas. Sprinkle bran in soups, cereals, baked products, spaghetti sauce, ground meat, and casseroles. Branalso mixes well with orange juice. Use dried peas, beans, and legumes in main dishes, salads, or side dishes such as rice or pasta. Eat the skins of raw fruits and vegetables. Add dried fruit to yogurt, cereal, rice, and muffins. Try brown rice and whole grain pastas. Choose crackers with a whole grain listed as the first ingredient. Look for whole grain rye and wheat crackers. Fiber supplements Fiber supplements may be an option if you are not able to get enough fiber from your diet. Fiber supplements can be used to normalize both constipation and diarrhea. Check with your doctor before starting any kind of supplement. Read labels for fiber carefully. Drink at least 8 ounces of liquids with your supplement. Taking some fiber supplements without adequate liquids may cause the fiber to swell and may cause choking and constipation. . Some fiber supplements to consider are Benefiber (wheat dextrin), Metamucil (psyllium), Konsyl (psyllium), Citrucel (methylcellulose), Fibercon (SmartFiber derived from cellulose), and FiberChoice (inulin). Psyllium husk and guar gum are soluble fibers. Consider keeping a food journal and tracking how much fiber you eat in a typical day. Use the fiber content chart in this handout as a guide to meeting your high fiber goal or check with www.NAL.[place]da.gov/fnic for additional information on the dietary fiber content of food. Fiber Content of Common Foods Food Category Food Serving Size Total Fiber (grams) Soluble Fiber (grams) Starches, Grains, Starchy vegetables Breads Bagel-whole wheat Light white/wheat Rylee-whole wheat Pumpernickel Whole wheat [place] 3 1/2 inches 2 slices 7 inches slice slice slice 3 1 4 3 2 2 1 trace 1 1 trace 1 Cereals Bran flakes Cheerios Oatmeal Fiber One All Bran Kashi Heart to Heart 3/4 cup 1 1/4 cup 1 cup cooked 1/2 cup 2/3 cup 3/4 cup 5 4 4 14 13 5 trace 1 2 1 1 1 Grains Barley Brown rice Pasta-whole wheat Quinoa Lentil pasta Edamame pasta 1/2 cup cooked 1/2 cup 1/2 cup cooked 1/2 cup cooked 1/2 cup cooked 4 2 3 2 17 22 1 trace 1 1 2 3 Legumes and starchy vegetables Garbanzo beans Kidney beans Lentils Potato (with skin) Potatoes, sweet Squash (winter) Green peas, cooked [place] beans [place], cooked 1/2 cup 1/2 cup 1/2 cup 1 medium 1/2 cup 1/2 cup 1/2 cup 1/2 cup 1/2 cup 4 6 5 3 4 3 4 7 2 1 3 1 1 2 2 1 3 trace Nuts and Seeds Almonds Peanuts Potwin seeds Walnuts Flaxseed(ground) Yeyo Seeds Hemp Seeds 1/4 cup 1/4 cup 1/4 cup 1/4 cup 1/8 c or 2tbsp 1/8 c or 2tbsp 1/8 c or 2tbsp 3 3 3 2 4 10 2 1 1 1 trace 2 7 1 Fruits Apple with skin Banana Blueberries Grapefruit Elizabeth Pear with skin Prunes Strawberries 1 medium 1 medium 1 cup 1/2 cup 1 medium 1 medium 3 1 cup 3 2 2 1 3 4 2 4 1 1 trace 1 2 2 1 1 Vegetables, non-starchy Broccoli Doyle sprouts Cabbage-green Carrot Cauliflower Green beans Kale Spinach Squash (zucchini) 1/2 cup 1/2 cup 1 cup, fresh 1/2 cup, cooked 1/2 cup, cooked 1/2 cup 1/2 cup 1/2 cup 1/2 cup 3 4 2 2 1 2 3 2 1 1 2 1 1 trace 1 1 1 1 How to read a food label Food labels are standardized by the U.S. government's National Labeling and Education Act (NLEA). Nutrition labels and an ingredient list are required on most foods, so that you can make the best selection for a healthy lifestyle. Review the food label below. Determine the total amount of fiber in this product or ask your registered dietitian or healthcare provider to show you how to read food labels and apply the information to your personal needs. In order for a product to be labeled high fiber, it must contain 5 grams or more of dietary fiber per serving. References US Department of Agriculture. 4312-7304 Dietary Guidelines for Americans Accessed 03/13/2016. Copyright 0550-0475 [facility]. All rights reservedfib documented in this encounterFulton County [facility] Center09-30-2021 History of Present illness Narrative* Kymberly Rey RT(R) - 07/17/2021 10:00 AM EDT Radiology Service Progress Note PATIENT NAME: Vincent Madden DATE OF SERVICE: July 17, 2021 TIME: 10:04 AM PATIENT IDENTITY VERIFICATION COMPLETED USING TWO (2) IDENTIFIERS: Name and Date of confirmedby patient verbally and Name and Date of confirmed by identification band. FALL SCREENING: Has the patient had 2 falls in the last year or 1 fall with injury or currently using an Ambulatory Assistive Device (Walker, Cane, Wheelchair, Crutches, etc.)? No PATIENT GENDER DATA: Male PATIENT RELEVANT IMPLANT DATA REVIEWED: Not Applicable RADIOLOGY DEPARTMENT: General X-ray: Exam(s) Completed: Chest X-Ray PERIPHERAL IV DATA: Not applicable SIGNED BY: RT Desmond(R) July 17, 2021 10:04 AM documented in this encounterFulton County Health Center09-02-2021 Miscellaneous Notes* Telephone Encounter - Aga Hector LPN - 06/19/2021 1:49 PM EDT I called and left a message for to call [facility] for test results. Aga Hector LPN * Telephone Encounter - Aag Hector LPN - 06/19/2021 1:48 PM EDT ----- Message from Tomasz Louis MD sent at 06/19/2021 1:03 PM EDT ----- LDL quite high at 164;; HDL okay at 42; suggest statin ie generic lipitor 20 mg daily if pt agreeable Normal Thyroid test; normal liver enz; normal creat 1.0,HCT good at 41 Tomasz Louis MD documented in this encounterFulton County Health Center09-01-2021 Miscellaneous Notes* Telephone Encounter - Capri Nieto RN - 06/18/2021 9:04 AM EDT Spoke with daughter, notified of Dr. Louis's message and recommendations. Daughter voiced understanding. Capri Nieto RN * Telephone Encounter - Tomasz Louis MD - 06/17/2021 4:55 PM EDT He is due for labs previously ordered; I added D Dimer today as well to screen for pulm emboli Please make sure he gets blood work done If no explanation for symptoms will just do a heart cath at some point to be sure no CAD but testing has looked good Tomasz Louis MD documented in this encounterFulton County Health Center08-31-2021 Miscellaneous Notes* Telephone Encounter - Yesi Prieto LPN - 06/17/2021 3:54 PM EDT Vincent Collier's daughter called back and was given Dr Louis's response to stress test results. She states verbal understanding. She states Mr Madden remains to have shortness of breath that comes and goes along with chest pain. She said he notes symptoms sometimes with just sitting or with exercise. Just FYI. She said she will get him a new patient appointment with Dr Oliver as well since he currently does not have a PCP. Thank you, Yesi Prieto LPN * Telephone Encounter - Aga Hector LPN - 06/17/2021 3:39 PM EDT I called and left a message for to call [facility] for test results. Aga Hector LPN * Telephone Encounter - Aga Hector LPN - 06/17/2021 3:38 PM EDT ----- Message from Tomasz Louis MD sent at 06/17/2021 3:10 PM EDT ----- Normal nuclear stress test; no ischemia or scar; EF 55% looks good dac documented in this encounterFulton County Health Center08-31-2021 History of Present illness Narrative* Xiomara Kohler RT(R) - 06/17/2021 7:30 AM EDT RADIOLOGY SERVICE PROGRESS NOTE SERVICE DATE: 06/17/2021 SERVICE TIME: 8:34 AM PATIENT IDENTITY VERIFICATION COMPLETED USING TWO (2) STANDARD IDENTIFIERS: Name and Date of confirmed by patient verbally FALL SCREENING: Has the patient had 2 falls in the last year or 1 fall with injury or currently using an Ambulatory Assistive Device (Walker, Cane, Wheelchair, Crutches, etc.)? No PATIENT GENDER DATA: .male : No ALLERGIES: Reviewed and unchanged MEDICATIONS REVIEWED: Yes PATIENT RELEVANT IMPLANT DATA REVIEWED: Not Applicable CREATININE: Creatinine Date Value Ref Range Status 01/31/2020 1.08 0.67 - 1.17 mg/dL Final Comment: Use of this assay is not recommended for patients undergoing treatment with phenindione, due to the potential for falsely depressed results. 07/10/2016 1.09 0.67 - 1.17 mg/dL Final 02/26/2016 1.10 0.67 - 1.17 mg/dL Final P.O.C.T. RESULTS: N/A June 17, [address] PERFORMED: No IV SITE: Ambulatory: A peripheral IV was started in the Right antecubital site with a Angio cath: 22 gauge. POST EXAM PIV STATUS: Discontinued PROCEDURE TYPE: NM Stress: 13.8mCi [id number]-Ykqexsm was administered IV for Rest Imaging at 1420 @ 06/12/21 by ty. 31.9 mCi [id number] was administered IV for Stress Imaging at 0810 @ 06/17/21 by ms. ADMINISTRATION TIME: 809 PATIENT DISCHARGED TO: Ambulatory patient, left NM department area. A Diagnostic radioactive procedure has taken place, with no further precautions necessary other than routine body substance precautions. More information regarding radiation safety can be found usingFerment[facility] Internationals link: [email or web address] SIGNATURE: RT Mike(Jacob) PATIENT NAME: Vincent Madden DATE: June 17, 2021 TIME: 8:34 AM PAGER/CONTACT #: * Sachin Carreon Utility Hand - 06/17/2021 7:30 AM EDT Lexiscan nuclear stress test completed. Patient verbalized understanding of test and pain scale. IVstarted by nursing staff prior to testing and removed by nursing staff at test end. documented in this encounterFulton County Health Center08-27-2021 Miscellaneous Notes* Telephone Encounter - Crystal Cuenca LPN - 06/13/2021 8:52 AM EDT Patient daughter himanshu notified of testing results, Verbalized understanding. Crystal Cuenca LPN * Telephone Encounter - Aga Hector LPN - 06/13/2021 7:15 AM EDT ----- Message from Tomasz Louis MD sent at 06/12/2021 3:58 PM EDT ----- Echo looks pretty good actually with EF 45%. No current med adjustment. Will await upcoming resultsof nuclear stress test. dac documented in this encounterFulton County Health Center07-15-2021 Instructions* Patient Instructions* Tomasz Louis MD - 05/01/2021 8:44 AM EDT Check your blood pressure every other day: Goal about 130/80 or lower: If you are running higher most of the time please let us know Please take your medicines regularly: If you need to hold off Lasix (furosemide) on occasion because you are going out that is fine Have blood work drawn after an overnight fast within the next month You should hear from scheduling to set up a chemical stress test and an echocardiogram of the heartin the next 2 to 6 weeks: We will call you with results documented in this encounterFulton County Health Center07-15-2021 Nurse Note* Tracy Moore MA - 05/01/2021 8:08 AM EDT Patient has no cardiac complaints today. Tracy Moore CMA documented in this encounterFulton County Health Center07-15-2021 History of Present illness Narrative* Tomasz Louis MD - 05/01/2021 6:25 AM EDT Chief Complaint No chief complaint on file. History of Present Illness: Vincent Madden is a 60 year old male referred to me to reestablish care for congestive heart failure. He is seen by the EP service and I actually saw him about 5 years ago. He has a diagnosis of dilated cardiomyopathy with left bundle branch block. He does not drink alcohol currently but used to drink heavily but this was about 30 years ago. He is an ex-smoker who quit about 13 to 14 years ago there is a family history of coronary disease. He does not carry a diagnosis of hyperlipidemia or diabetes. Back in 2016 EF was 40%. 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 He has had a priorcatheter says show nonischemic cause for cardiomyopathy and no major coronary disease. He does havesome hypertension. Vincent is here and has his on the phone. He says he has had some vague chest pain that is occasionally exertional and has not had it evaluated. He does not currently have a primary physician. He has not had any cardiac testing such as echo in at least 5 years. He takes his meds most of the time but not all the time and had does not always like to take his Lasix because it makes him urinate. Hereally does not have edema. He has had no ICD firings or palpitations he has had no syncope stroke or TIA. He has had no upper or lower GI bleeding or severe bruising. He does have a fairly easy exertional dyspnea. He has no claudication. He has not had his Covid vaccines. PAST MEDICAL HISTORY Diagnosis Date Abnormal EKG Atherosclerotic heart disease of [place] coronary artery without angina pectoris Automatic implantable cardioverter-defibrillator in situ BBB (bundle branch block) Benign neoplasm of colon Cardiomegaly Cardiomyopathy (HCC) NIDCM CHF (congestive heart failure) systolic 12/02/2012 Chronic pain of left thumb Coronary arteriosclerosis Dilated cardiomyopathy (HCC) 12/02/2012 Latest Echo 05/2016 with EF 40% can be found in Care Everywhere Dyspnea Epigastric pain Fatigue GERD (gastroesophageal reflux disease) Hiatal hernia LBBB (left bundle branch block) Left ventricular failure (HCC) Palpitations SOB (shortness of breath) PAST SURGICAL HISTORY Procedure Laterality Date CARDIAC CATH Left 06/2011 COLONOSCOPY W/BX 12/24/2017 EGD W/O BRSH SPECIMEN W/BX 12/24/2017 LOW BACK DISK SURGERY PACEMAKER 02/26/2016 [employer] PAST SURGICAL HISTORY OF pin removed from the left thumb FAMILY HISTORY Problem Relation Age of Onset Coronary Artery Disease Father a. CABG, valve replacement Heart Father Coronary Artery Disease Mother a. CABG, carotid artery endarterectomy bilateral Breast Cancer Mother Heart Mother None Brother 3 brothers and one sister a.OK Cancer Brother one brother a. Colon Cancer Brother Heart Other uncle other (scd) Other uncle and aunt scd other (Heart Attack) Other Social History Tobacco Use Smoking status: Former Smoker Packs/day: 1.00 Years: 10.00 Pack years: 10.00 Quit date: 12/05/2006 Years since quittin.4 Smokeless tobacco: Never Used Vaping Use Vaping Use: Never used Substance Use Topics Alcohol use: No Comment: heavy alcohol consumption and quit in 1987 Drug use: No ALLERGIES Allergen Reactions Buprenorphine Other: See Comments Medications: Current Outpatient Medications Medication Sig Dispense Refill carvedilol (COREG) 12.5 mg tablet Take 1 tablet by mouth twice daily. 60 tablet 0 furosemide (LASIX) 40 mg tablet Take 1 tablet by mouth once daily. 30 tablet 0 lisinopril (ZESTRIL, PRINIVIL) 20 mg tablet Take 1 tablet by mouth twice daily. 60 tablet 0 spironolactone (ALDACTONE) 25 mg tablet Take 1 tablet by mouth once daily. 30 tablet 0 topiramate (TOPAMAX) 100 mg tablet Take 1 tablet by mouth daily at bedtime. 30 tablet 4 meclizine (ANTIVERT) 25 mg tab Take 1 tablet by mouth three times daily as needed. 90 tablet 2 esomeprazole (NEXIUM) 40 mg capsule Take 1 capsule by mouth once daily. 30 capsule 11 gabapentin (NEURONTIN) 600 mg tablet Take 600 mg by mouth three times daily. aspirin, enteric coated (ADULT LOW DOSE ASPIRIN) 81 mg EC tablet Take 1 tablet by mouth once daily.0 No current facility-administered medications for this visit. Review of Systems Constitutional: Positive for malaise/fatigue. Negative for chills, fever and weight loss. Respiratory: Positive for shortness of breath. Denies Chest Tightness Cardiovascular: Positive for chest pain. Gastrointestinal: Negative for abdominal pain, blood in stool and nausea. Genitourinary: Negative for hematuria. Musculoskeletal: Negative for falls. Neurological: Negative for dizziness, speech change and loss of consciousness. Denies syncope Endo/Heme/Allergies: Does not bruise/bleed easily. Physical Examination: 164/104 P 70 196 lb Last 2 Encounter Wt Readings: Date: Wt: 10/24/2020 200 lb (90.7 kg) 09/02/2020 190 lb (86.2 kg) Physical Exam Vitals reviewed. Constitutional: General: He is not in acute distress. Appearance: He is not diaphoretic. Comments: Mildly overweight HENT: Head: Normocephalic. Eyes: Comments: Pupils equal eyelids appear normal Neck: Thyroid: No thyromegaly. Vascular: No carotid bruit or JVD. Cardiovascular: Rate and Rhythm: Regular rhythm. Pulses: Carotid pulses are 2+ on the right side and 2+ on the left side. Radial pulses are 2+ on the right side and 2+ on the left side. Femoral pulses are 2+ on the right side and 2+ on the left side. Dorsalis pedis pulses are 2+ on the right side and 2+ on the left side. Heart sounds: Heart sounds are distant. No murmur heard. No friction rub. No gallop. Comments: [place] nonpalpable, no RV lift Pulmonary: Effort: No accessory muscle usage or respiratory distress. Breath sounds: Normal breath sounds. No stridor. No wheezing or rales. Comments: Healed ICD on the left Abdominal: Palpations: Abdomen is soft. There is no hepatomegaly or mass. Tenderness: There is no abdominal tenderness. There is no guarding or rebound. Comments: Mildly overweight no obvious pulsatility or bruit Musculoskeletal: General: No deformity. Cervical back: Normal range of motion. Right lower leg: No edema. Left lower leg: No edema. Skin: General: Skin is warm and dry. Findings: No ecchymosis or rash. Neurological: Mental Status: He is alert and oriented to person, place, and time. Coordination: Coordination normal. Psychiatric: Mood and Affect: Affect normal. Mood is anxious. Pertinent Labs: CBC: HGB (g/dL) Date Value 01/31/2020 12.6 Hematocrit (%) Date Value 01/31/2020 35.9 WBC (thou/cmm) Date Value 01/31/2020 16.7 Platelet Count (thou/cmm) Date Value 01/31/2020 215 BMP: Glucose (mg/dL) Date Value 01/31/2020 104 Potassium (mEq/L) Date Value 01/31/2020 3.8 Sodium (mEq/L) Date Value 01/31/2020 139 Chloride (mEq/L) Date Value 01/31/2020 104 CO2 (mEq/L) Date Value 01/31/2020 26 Creatinine (mg/dL) Date Value 01/31/2020 1.08 BUN (mg/dL) Date Value 01/31/2020 16 Anion Gap (no units) Date Value 01/31/2020 13 Calcium (mg/dL) Date Value 01/31/2020 9.0 INR: TSH: No results found for: TSHREFL Lipid Profile: Cholesterol, Total Date Value Ref Range Status 02/08/2017 277 (H) 0 - 199 mg/dL Final Comment: <200 Desirable 200-240 Borderline >240 High HDL Cholesterol Date Value Ref Range Status 02/08/2017 58 >40 mg/dL Final LDL Calculated Date Value Ref Range Status 02/08/2017 197 mg/dL Final Comment: No CAD and with fewer than 2 CAD risk factors <160 mg/dl No CAD but with 2 or more CAD risk factors <130 mg/dl Definite CAD or other atherosclerotic disease <100 mg/dl Triglyceride Date Value Ref Range Status 02/08/2017 112 0 - 149 mg/dL Final Comment: < 200 Desirable Result invalid if not a fasting specimen. Hemoglobin A1C: No results found for: HGBA1C Most Recent Cardiac Testing 2019 carotid Dopplers less than 50% stenosis bilaterally Assessment and Plan: 1. Dilated cardiomyopathy: Longstanding with prior cath without CAD. 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 Last echo 5 years ago EF 40% up from prior 25% but no more recent testing. He really has not had any testing since then and is mostly compliant but not completely compliant with meds. He also has some vague chest pain which is not typical for coronary disease but certainly merits evaluation. Today's EKG reveals a tracking with V pacing. For now I will continue his current medicines. I have encouraged him to take them daily although I have no problem if he wants to miss an occasional dose of Lasix because it is not convenient to take it. I will check an echo in the next few weeks to reassess his ejection fraction. Certainly his meds could be titrated further or other medicines used instead such as Entresto or SGLT2 antagonist. However he would first need to be compliant with his current regimen. I will also get a Lexiscan Myoview stress test to assess for ischemia. He does not wish to be referred to the heart failure clinic. He will also follow-up with the EP service Dr. Monreal for his ICD. I will check lab work including BNP and electrolytes 2. Lipids: He has not required statin therapy -I will check lab work 3. Extobacco: Quit about 19 years ago -Little or no COPD and unremarkable chest x-ray last year. 4. Covid: Has refused vaccines because he feels they are not trustworthy. I did try to convince himotherwise but I am doubtful this will affect his opinion 5. Hypertension quite high today and he does not check it at home. Goal is 130/80. I told him to check it twice a week and to call us if it is much above target. This certainly could contribute to some degree of heart failure and dyspnea. 6. Health maintenance: Encouraged him to find a PCP Electronically signed by Tomasz Louis MD on May 01, 2021, 6:25 AM documented in this encounterFulton County Health Center06-30-2021 Miscellaneous Notes* Telephone Encounter - Aga Hector LPN - 04/16/2021 1:36 PM EDT I called and spoke to and informed him of Daphne's response. Patient voiced understanding. Aga Hector LPN * Telephone Encounter - Suzy Burris APRN.CNP - 04/16/2021 12:44 PM EDT Please inform the patient I have entered a 30 day supply for the requested medications, sent to [facility] in [place]. These are typically medications prescribed by a can feeder (Dr. Louis) which the patient previously followed with. He is scheduled to re-establish care with Dr. Louis on 05/01/2021 and future refills should come from Dr. Louis. He also plans to follow with Dr. Salcedo in the future, not here in [place] for . Future refills from me would be inappropriate at this point. Thank you. Suzy Burris APRN.BRANDEN * Telephone Encounter - Donna Salcedo - 04/15/2021 11:48 AM EDT Call from patient requesting refill. Pending Prescriptions Disp Refills LISINOPRIL 20 MG TABLET 180 tablet 3 Sig: Take 1 tablet by mouth twice daily. MARS: No CARVEDILOL 12.5 MG TABLET 180 tablet 3 Sig: Take 1 tablet by mouth twice daily. MARS: No SPIRONOLACTONE 25 MG TABLET 90 tablet 3 Sig: Take 1 tablet by mouth once daily. MARS: No FUROSEMIDE 40 MG TABLET 90 tablet 3 Sig: Take 1 tablet by mouth once daily. MARS: No Patient last seen 10/24/2020 w/ Suzy Burris CNP (spoke with patient's daughter - patient will be following Dr. Salcedo and not remaining in [place].) Donna Maki Adm documented in this encounterFulton County [facility] Center11-16-2020 History of Past illness Narrative* Problem Noted Date Resolved Date Tendinitis of right rotator cuff 09/02/2020 08/09/2021 History of colonic polyps 08/30/20172020 Overview: Added automatically from request for surgery [id number] Obesity 12/05/2012 08/09/2021 documented as of this encounter (statuses as of 08/15/2021) [facility] of Past illness Narrative* Problem Noted Date Resolved Date Tendinitis of right rotator cuff 09/02/2020 08/09/2021 History of colonic polyps 08/30/20172020 Overview: Added automatically from request for surgery [id number] Obesity 12/05/2012 08/09/2021 documented as of this encounter (statuses as of 09/04/2021) [facility] of Past illness Narrative* Problem Noted Date Resolved Date Tendinitis of right rotator cuff 09/02/2020 08/09/2021 History of colonic polyps 08/30/20172020 Overview: Added automatically from request for surgery [id number] Obesity 12/05/2012 08/09/2021 documented as of this encounter (statuses as of 09/04/2021) [place] [address]-16-2020 History of Past illness Narrative* Problem Noted Date Resolved Date Tendinitis of right rotator cuff 09/02/2020 08/09/2021 History of colonic polyps 08/30/20172020 Overview: Added automatically from request for surgery [id number] Obesity 12/05/2012 08/09/2021 documented as of this encounter (statuses as of 01/13/2022) [address]16-2020 History of Past illness Narrative* Problem Noted Date Resolved Date Tendinitis of right rotator cuff 09/02/2020 08/09/2021 History of colonic polyps 08/30/20172020 Overview: Added automatically from request for surgery [id number] Obesity 12/05/2012 08/09/2021 documented as of this encounter (statuses as of 01/13/2022) [address]16-2020 History of Past illness Narrative* Problem Noted Date Resolved Date Tendinitis of right rotator cuff 09/02/2020 08/09/2021 History of colonic polyps 08/30/20172020 Overview: Added automatically from request for surgery [id number] Obesity 12/05/2012 08/09/2021 documented as of this encounter (statuses as of 02/25/2022) [address]16-2020 History of Past illness Narrative* Problem Noted Date Resolved Date Tendinitis of right rotator cuff 09/02/2020 08/09/2021 History of colonic polyps 08/30/20172020 Overview: Added automatically from request for surgery [id number] Obesity 12/05/2012 08/09/2021 documented as of this encounter (statuses as of 03/11/2022) [address]16-2020 History of Past illness Narrative* Problem Noted Date Resolved Date Tendinitis of right rotator cuff 09/02/2020 08/09/2021 History of colonic polyps 08/30/20172020 Overview: Added automatically from request for surgery [id number] Obesity 12/05/2012 08/09/2021 documented as of this encounter (statuses as of 03/11/2022) [address]16-2020 History of Past illness Narrative* Problem Noted Date Resolved Date Tendinitis of right rotator cuff 09/02/2020 08/09/2021 History of colonic polyps 08/30/20172020 Overview: Added automatically from request for surgery [id number] Obesity 12/05/2012 08/09/2021 documented as of this encounter (statuses as of 03/12/2022) [address]16-2020 History of Past illness Narrative* Problem Noted Date Resolved Date Tendinitis of right rotator cuff 09/02/2020 08/09/2021 History of colonic polyps 08/30/20172020 Overview: Added automatically from request for surgery [id number] Obesity 12/05/2012 08/09/2021 documented as of this encounter (statuses as of 03/12/2022) [address]16-2020 History of Past illness Narrative* Problem Noted Date Resolved Date Tendinitis of right rotator cuff 09/02/2020 08/09/2021 History of colonic polyps 08/30/20172020 Overview: Added automatically from request for surgery [id number] Obesity 12/05/2012 08/09/2021 documented as of this encounter (statuses as of 04/13/2022) [address]16-2020 History of Past illness Narrative* Problem Noted Date Resolved Date Tendinitis of right rotator cuff 09/02/2020 08/09/2021 History of colonic polyps 08/30/20172020 Overview: Added automatically from request for surgery [id number] Obesity 12/05/2012 08/09/2021 documented as of this encounter (statuses as of 07/29/2022) [address]16-2020 History of Past illness Narrative* Problem Noted Date Resolved Date Tendinitis of right rotator cuff 09/02/2020 08/09/2021 History of colonic polyps 08/30/20172020 Overview: Added automatically from request for surgery [id number] Obesity 12/05/2012 08/09/2021 documented as of this encounter (statuses as of 07/29/2022) [facility] Narrative* Problem Noted Date Resolved Date Tendinitis of right rotator cuff 09/02/2020 08/09/2021 History of colonic polyps 08/30/20172020 Overview: Added automatically from request for surgery [id number] Obesity 12/05/2012 08/09/2021 documented as of this encounter (statuses as of 10/01/2022) [facility] Narrative* Problem Noted Date Resolved Date Tendinitis of right rotator cuff 09/02/2020 08/09/2021 History of colonic polyps 08/30/20172020 Overview: Added automatically from request for surgery [id number] Obesity 12/05/2012 08/09/2021 documented as of this encounter (statuses as of 10/02/2022) [facility]-16-2020 History of Past illness Narrative* Problem Noted Date Resolved Date Tendinitis of right rotator cuff 09/02/2020 08/09/2021 History of colonic polyps 08/30/20172020 Overview: Added automatically from request for surgery [id number] Obesity 12/05/2012 08/09/2021 documented as of this encounter (statuses as of 11/06/2022) [facility]2020 History of Past illness Narrative* Problem Noted Date Resolved Date Tendinitis of right rotator cuff 09/02/2020 08/09/2021 History of colonic polyps 08/30/20172020 Overview: Added automatically from request for surgery [id number] Obesity 12/05/2012 08/09/2021 documented as of this encounter (statuses as of 11/06/2022) [address]16-2020 History of Past illness Narrative* Problem Noted Date Resolved Date Tendinitis of right rotator cuff 09/02/2020 08/09/2021 History of colonic polyps 08/30/20172020 Overview: Added automatically from request for surgery [id number] Obesity 12/05/2012 08/09/2021 documented as of this encounter (statuses as of 11/10/2022) [address]2020 History of Past illness Narrative* Problem Noted Date Resolved Date Tendinitis of right rotator cuff 09/02/2020 08/09/2021 History of colonic polyps 08/30/20172020 Overview: Added automatically from request for surgery [id number] Obesity 12/05/2012 08/09/2021 documented as of this encounter (statuses as of 11/10/2022) [address]16-2020 History of Past illness Narrative* Problem Noted Date Resolved Date Tendinitis of right rotator cuff 09/02/2020 08/09/2021 History of colonic polyps 08/30/20172020 Overview: Added automatically from request for surgery [id number] Obesity 12/05/2012 08/09/2021 documented as of this encounter (statuses as of 11/19/2022) [address]2020 History of Past illness Narrative* Problem Noted Date Resolved Date Tendinitis of right rotator cuff 09/02/2020 08/09/2021 History of colonic polyps 08/30/20172020 Overview: Added automatically from request for surgery [id number] Obesity 12/05/2012 08/09/2021 documented as of this encounter (statuses as of 11/19/2022) [address] History of Past illness Narrative* Problem Noted Date Resolved Date Tendinitis of right rotator cuff 09/02/2020 08/09/2021 History of colonic polyps 08/30/20172020 Overview: Added automatically from request for surgery [id number] Obesity 12/05/2012 08/09/2021 documented as of this encounter (statuses as of 02/12/2023) [address]16-2020 History of Past illness Narrative* Problem Noted Date Diagnosed Date Resolved Date Tendinitis of right rotator cuff 09/02/2020 08/09/2021 History of colonic polyps 08/30/2017 Overview: Added automatically from request for surgery [id number] Obesity 12/05/2012 08/09/2021 documented as of this encounter (statuses as of 09/21/2023) [address]16-2020 History of Past illness Narrative* Problem Noted Date Diagnosed Date Resolved Date Tendinitis of right rotator cuff 09/02/2020 08/09/2021 History of colonic polyps 08/30/2017 Overview: Added automatically from request for surgery [id number] Obesity 12/05/2012 08/09/2021 documented as of this encounter (statuses as of 09/21/2023) [address]16-2020 History of Past illness Narrative* Problem Noted Date Diagnosed Date Resolved Date Tendinitis of right rotator cuff 09/02/2020 08/09/2021 History of colonic polyps 08/30/2017 Overview: Added automatically from request for surgery [id number] Obesity 12/05/2012 08/09/2021 documented as of this encounter (statuses as of 09/21/2023) [address]16-2020 History of Past illness Narrative* Problem Noted Date Diagnosed Date Resolved Date Tendinitis of right rotator cuff 09/02/2020 08/09/2021 History of colonic polyps 08/30/2017 Overview: Added automatically from request for surgery [id number] Obesity 12/05/2012 08/09/2021 documented as of this encounter (statuses as of 09/30/2023) [address]16-2020 History of Past illness Narrative* Problem Noted Date Diagnosed Date Resolved Date Tendinitis of right rotator cuff 09/02/2020 08/09/2021 History of colonic polyps 08/30/2017 Overview: Added automatically from request for surgery [id number] Obesity 12/05/2012 08/09/2021 documented as of this encounter (statuses as of 09/30/2023) [address]16-2020 History of Past illness Narrative* Problem Noted Date Diagnosed Date Resolved Date Tendinitis of right rotator cuff 09/02/2020 08/09/2021 History of colonic polyps 08/30/2017 Overview: Added automatically from request for surgery [id number] Obesity 12/05/2012 08/09/2021 documented as of this encounter (statuses as of 11/20/2023) [facility] History of Past illness Narrative* Problem Noted Date Diagnosed Date Resolved Date Tendinitis of right rotator cuff 09/02/2020 08/09/2021 History of colonic polyps 08/30/2017 Overview: Added automatically from request for surgery [id number] Obesity 12/05/2012 08/09/2021 documented as of this encounter (statuses as of 11/30/2023) [facility]2020 History of Past illness Narrative* Problem Noted Date Diagnosed Date Resolved Date Tendinitis of right rotator cuff 09/02/2020 08/09/2021 History of colonic polyps 08/30/2017 Overview: Added automatically from request for surgery [id number] Obesity 12/05/2012 08/09/2021 documented as of this encounter (statuses as of 12/01/2023) [facility] History of Past illness Narrative* Problem Noted Date Diagnosed Date Resolved Date Tendinitis of right rotator cuff 09/02/2020 08/09/2021 History of colonic polyps 08/30/2017 Overview: Added automatically from request for surgery [id number] Obesity 12/05/2012 08/09/2021 documented as of this encounter (statuses as of 12/21/2023) [address]16-2020 History of Past illness Narrative* Problem Noted Date Diagnosed Date Resolved Date Tendinitis of right rotator cuff 09/02/2020 08/09/2021 History of colonic polyps 08/30/2017 Overview: Added automatically from request for surgery [id number] Obesity 12/05/2012 08/09/2021 documented as of this encounter (statuses as of 01/07/2024) [facility] History of Past illness Narrative* Problem Noted Date Diagnosed Date Resolved Date Tendinitis of right rotator cuff 09/02/2020 08/09/2021 History of colonic polyps 08/30/2017 Overview: Added automatically from request for surgery [id number] Obesity 12/05/2012 08/09/2021 documented as of this encounter (statuses as of 01/07/2024) [facility] History of Past illness Narrative* Problem Noted Date Diagnosed Date Resolved Date Tendinitis of right rotator cuff 09/02/2020 08/09/2021 History of colonic polyps 08/30/2017 Overview: Added automatically from request for surgery [id number] Obesity 12/05/2012 08/09/2021 documented as of this encounter (statuses as of 01/07/2024) [facility] History of Past illness Narrative* Problem Noted Date Diagnosed Date Resolved Date Tendinitis of right rotator cuff 09/02/2020 08/09/2021 History of colonic polyps 08/30/2017 Overview: Added automatically from request for surgery [id number] Obesity 12/05/2012 08/09/2021 documented as of this encounter (statuses as of 01/18/2024) [facility] Tosin Richardson [facility] Note Date/Time May 25, 2025 8:5 [facility] [address] [place] [address] Pre-Anesthesia Evaluation 05/25/25 0850 MR#: [id number] Acct: [id number] Name: VINCENT MADDEN Rep #:[id number] : 1960 65 From: Tosin Richardson CRNA PCP: Care Physician,No Primary Status :[facility] Y Race: C Location: [place] [address] ASA Classification* ASA Classification ASA Classification: 3 Assessment & Plan Anesthesia* Anesthesia Assessment Anesthesia Assessment: Discussed sedation and/or anesthesia options, risks, benefits, and alternatives with patient/parents/legal guardian/POA. Questions invited. The patient/parents/legal guardian/POA seems to understand and agrees to proceedwith anesthesia plan. Reviewed the physical assessment, medical history, allergy history and patient home medications list prior to surgery/procedure/anesthetic and documented any changes. Performed airway and anesthesia risk assessments. Anesthesia Type Anesthesia Type: MAC History Source History Obtained from:: Patient and Chart Anesthesia Focused Assessment* Temperature: 96.9 F Pulse Rate: 61 Blood Pressure: 145/81 Respiratory Rate: 16 Pulse Ox: 99 Oxygen Delivery Method: Room Air Airway Assessment Mouth opens: >3 cm Mallampati Score: III Teeth Condition: Missing (missing tops and bottoms, multiple teeth. ) Neck Range of motion (ROM): Full ROM Labs Anesthesia Preop lab: CBC WBC 7.8 K/mm3 (4.4-11.0) 04/26/25 16:03 04/26/25 RBC 3.96 M/mm3 (4.6-6.2) L 04/26/25 16:03 04/26/25 Hgb 12.7 g/dL (13.0-16.5) L 04/26/25 16:03 5 Hct 36.3 % (40-54) L 04/26/25 16:03 04/26/25 Plt Count 156 K/mm3 (150-450) 04/26/25 16:03 04/26/25 CHEMISTRY Potassium 4.4 mmol/L (3.3-5.1) 04/26/25 16:03 04/26/25 Sodium 135 mmol/L (133-145) 04/26/25 16:03 04/26/25 BUN 27 mg/dL (4-19) H 04/26/25 16:03 04/26/25 Creatinine 1.35 mg/dL (0.70-1.20) H 04/26/25 16:03 Glucose 102 mg/dL (70-99) H 04/26/25 16:03 04/26/25 COAG Pre-Assessment Diagnosis/Proposed Procedure Planned Operative Procedure(s): EGD Anesthesia History 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 When Was Last Pacemaker Check QUESTION #4 FULL TEXT: You/Your Family Experience fever (hyperthermia) with Anesthesia Any additional information?: Yes Any Problems With Anesthesia: No Cholinesterasedeficiency: No You/your family experience fever (hyperthermia) with anesthesia: No --Does patient have Pacemaker or ICD?: Yes When Was Last Pacemaker Check: Defibrillator never fired Last Oral Intake Last Oral intake: Last Oral Intake NPO since 21:00 05/25/25 08:11 Meds taken in AM with sips of No 05/25/25 08:11 water? 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 Female No 05/23/25 11:01 HX of Motion Sickness No 05/23/25 11:01 HX of N/V After Surgery No 05/23/25 11:01 Non-Smoker Yes 05/23/25 11:01 Duration of Surgery greater No 05/23/25 11:01 than 60 minutes Number of Risk Factors 1 05/23/25 11:01 PONV Score Low Risk 05/23/25 11:01 Any additional information?: No Height & Weight Height & Weight: Anesthesia: Height & Weight Height 5 ft 8 in 05/25/25 08:11 Weight: 91 kg 05/25/25 08:11 Body Mass Index (BMI) 30.4 05/25/25 08:11 Respiratory Assessment Respiratory Assessment - funeral limousine driver: Respiratory Tract Infection Hx - 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 Has anyone observed you stop No 05/23/25 11:01 breathing during sleep? STOP Results Negative 05/23/25 11:01 QUESTION #5 FULL TEXT : Do you snore loudly (louder than talking or can be heard through closed doors)? 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 Specify any problems Hx of Preganancy in last 3 N/A 05/23/25 11:01 Months Nurse Filling Out Transfusion [facility] 05/23/25 11:01 & Questions: Date: 05/23/25 05/23/25 11:01 Time: 11:07 05/23/25 11:01 Patient unable to answer at this time (ie. 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: /Reproductive Hx- funeral limousine driver Hx Now No 05/23/25 11:01 Gestational Age (in weeks): EDC: Hx Hx Para Hx Section SAB No 05/23/25 11:01 Any additional information?: No Active Medications Active Medications: Current Medications Generic Name Dose Route Start Last Admin Trade Name Freq PRN Reason Stop Dose Admin Lactated Ringer's 1,000 mls @ 15 mls/hr 05/25/25 08:00 05/25/25 08:14 IV 15 mls/hr .Q48H IVON Administration PFSH Medical History (Updated 05/23/25 @ 11:06 by Yoselyn Rodriguez) Arthritis High cholesterol Migraine headache Gastric reflux Former smoker Shortness of breath on exertion History of pacemaker History of echocardiogram Cardiology follow-up encounter H pylori ulcer Rectal polyp Rectal bleeding GERD (gastroesophageal reflux disease) HTN (hypertension) Hypertriglyceridemia Hernia CAD (coronary atherosclerotic disease) Palpitation Cardiomyopathy LBBB (left bundle branch block) Pacemaker Home Medications ?Medication ?Instructions ?Recorded ?Last Taken ?Type ondansetron 4 mg disintegrating 4 mg PO Q6H PRN nausea and 04/26/25 Unknown Rx tablet vomiting #20 tabs aspirin 81 mg tablet 81 mg PO QDAY 04/30/25 Unkno wn History carvedilol 12.5 mg tablet 12.5 mg PO BID 04/30/25 Unkn own History esomeprazole magnesium 40 mg 40 mg PO QDAY 04/30/25 Un known History capsule,delayed release furosemide 40 mg tablet 40 mg PO QDAY 04/30/25 Unkno wn History lisinopril 20 mg tablet 20 mg PO BID 04/30/25 Unknow n History spironolactone 25 mg tablet 25 mg PO DAILY 04/30/25 Un known History rosuvastatin 20 mg tablet 20 mg PO QHS 05/23/25 Unknow n History Allergy/AdvReac Type Severity Reaction Status Date / Time No Known Allergies Allergy Verified 05/25/25 08:10 Surgical History (Updated 05/23/25 @ 11:06 by Yoselyn Rodriguez) History of implantable cardiac defibrillator (ICD) S/P cardiac pacemaker procedure S/P carpal tunnel release Previous back surgery Social History (Updated 04/30/25 @ 08:43 by Amber Akers) Smoking Status: Former smoker alcohol intake: never Review of Systems (Anesthesia) ROS Narrative System reviewed and no additional complaints, except as documented. 05/25/25 0854 <Electronically signed by Tosin wong CRNA> Date _ Tosin Richardson CRNA Cosigner Signature: Date CC: ~ Signed [facility] Work Phone: Evaluation note* Diagnosis Cardiac resynchronization therapy defibrillator (ROAD 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- Primary Chronic systolic CHF (congestive heart failure) (HCC) Chronic systolic heart failure Cardiomyopathy, nonischemic (HCC) Other primary cardiomyopathies [facility] Cardiomyopathy, nonischemic (HCC)- Primary Other primary cardiomyopathies Palpitations Cardiac resynchronization therapy defibrillator (ROAD 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 Chronic systolic CHF (congestive heart failure) (HCC) Chronic systolic heart failure Precordial pain [facility] Diagnosis Shortness of breath [facility] Diagnosis Palpitations Chronic systolic CHF (congestive heart failure) (HCC) Chronic systolic heart failure Cardiomyopathy, nonischemic (HCC) Other primary cardiomyopathies [facility] Diagnosis Palpitations Chronic systolic CHF (congestive heart failure) (HCC) Chronic systolic heart failure Cardiomyopathy, nonischemic (HCC) Other primary cardiomyopathies Precordial pain [facility]* Diagnosis Dyspnea, unspecified type [facility] Diagnosis MARTINEZ (dyspnea on exertion)- Primary Other dyspnea and respiratory abnormality [facility] Diagnosis MARTINEZ (dyspnea on exertion) Other dyspnea and respiratory abnormality Dyspnea on exertion Other dyspnea and respiratory abnormality [facility] Diagnosis Dilated cardiomyopathy (HCC) Other primary cardiomyopathies [facility] Diagnosis Rectal bleeding- Primary Hemorrhage of rectum and anus Gastroesophageal reflux disease without esophagitis Esophageal reflux History of colonic polyps Personal history of colonic polyps Dilated cardiomyopathy (HCC) Other primary cardiomyopathies LBBB (left bundle branch block) Other left bundle branch block ICD (implantable cardioverter-defibrillator) in place Automatic implantable cardiac defibrillator in situ [facility] Diagnosis Gastroesophageal reflux disease without esophagitis- Primary Esophageal reflux [facility] Diagnosis Rectal bleeding- Primary Hemorrhage of rectum and anus History of colonic polyps Personal history of colonic polyps [facility] Diagnosis Congestive heart failure, unspecified HF chronicity, unspecified heart failure type (HCC) documented in this encounter [facility] note* Diagnosis Congestive heart failure, unspecified HF chronicity, unspecified heart failure type (HCC)- Primary documented in this encounter [facility] note* Diagnosis Congestive heart failure, unspecified HF chronicity, unspecified heart failure type (HCC)- Primary documented in this encounter [facility] note* Diagnosis Congestive heart failure, unspecified HF chronicity, unspecified heart failure type (HCC)- Primary documented in this encounter [facility] note* Diagnosis Cardiac resynchronization therapy defibrillator (ROAD 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 Chronic systolic CHF (congestive heart failure) (HCC) Chronic systolic heart failure Cardiomyopathy, nonischemic (HCC) Other primary cardiomyopathies documented in this encounter [facility] note* Diagnosis Plantar fasciitis Plantar fascial fibromatosis documented in this encounter [facility] note* Diagnosis Chronic systolic CHF (congestive heart failure) (HCC)- Primary Chronic systolic heart failure Cardiac resynchronization therapy defibrillator (ROAD 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 Cardiomyopathy, nonischemic (HCC) Other primary cardiomyopathies documented in this encounter [facility] note* Diagnosis Congestive heart failure, unspecified HF chronicity, unspecified heart failure type (HCC)- Primary documented in this encounter [facility] note* Diagnosis Rectal bleeding- Primary Hemorrhage of rectum and anus Gastroesophageal reflux disease without esophagitis Esophageal reflux LBBB (left bundle branch block) Other left bundle branch block History of colonic polyps Personal history of colonic polyps ICD (implantable cardioverter-defibrillator) in place Automatic implantable cardiac defibrillator in situ Dilated cardiomyopathy (HCC) Other primary cardiomyopathies documented in this encounter [facility] note* Diagnosis Gastroesophageal reflux disease without esophagitis- Primary Esophageal reflux Rectal bleeding Hemorrhage of rectum and anus documented in this encounter [facility] note* Diagnosis Congestive heart failure, unspecified HF chronicity, unspecified heart failure type (HCC)- Primary documented in this encounter [facility] note* Diagnosis Gastroesophageal reflux disease, unspecified whether esophagitis present- Primary Gastroesophageal reflux disease without esophagitis Esophageal reflux Rectal bleeding Hemorrhage of rectum and anus Preop examination Preoperative examination, unspecified Chronic systolic CHF (congestive heart failure) (HCC) Chronic systolic heart failure Athscl heart disease of [place] coronary artery w/o ang pctrs ICD (implantable cardioverter-defibrillator) in place Automatic implantable cardiac defibrillator in situ Hypertriglyceridemia Pure hyperglyceridemia Primary hypertension Unspecified essential hypertension documented in this encounter [facility] note* Diagnosis Benign prostatic hyperplasia with urinary frequency- Primary Erectile dysfunction due to arterial insufficiency Impotence of organic origin Screening for genitourinary condition Screening for other and unspecified genitourinary condition Prostate cancer screening Special screening for malignant neoplasm of prostate documented in this encounter [facility] note* Diagnosis Prostate troubles- Primary Unspecified disorder of prostate documented in this encounter [facility] note* Diagnosis Gastroesophageal reflux disease without esophagitis- Primary Esophageal reflux Adenomatous polyp of ascending colon Serrated polyp of colon Rectal bleeding Hemorrhage of rectum and anus Constipation, unspecified constipation type Family history of colon cancer Family history of malignant neoplasm of gastrointestinal tract [facility] Diagnosis Congestive heart failure, unspecified HF chronicity, unspecified heart failure type (HCC)- Primary documented in this encounter [facility] note* Diagnosis Benign prostatic hyperplasia with urinary frequency- Primary Erectile dysfunction due to arterial insufficiency Impotence of organic origin [facility] Diagnosis Chronic systolic CHF (congestive heart failure) (HCC) Chronic systolic heart failure Cardiac resynchronization therapy defibrillator (ROAD 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 Cardiomyopathy, nonischemic (HCC) Other primary cardiomyopathies documented in this encounter [facility] note* Diagnosis Dilated cardiomyopathy (HCC)- Primary Other primary cardiomyopathies ICD (implantable cardioverter-defibrillator) in place Automatic implantable cardiac defibrillator in situ Primary hypertension Unspecified essential hypertension Mixed hyperlipidemia documented in this encounter [facility] note* Diagnosis Chronic systolic CHF (congestive heart failure) (HCC) Chronic systolic heart failure Cardiac resynchronization therapy defibrillator (ROAD 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 Cardiomyopathy, nonischemic (HCC) Other primary cardiomyopathies documented in this encounter [facility] note* Diagnosis Heart failure, unspecified HF chronicity, unspecified heart failure type (HCC)- Primary documented in this encounter [facility] note* Diagnosis Dilated cardiomyopathy (HCC)- Primary Other primary cardiomyopathies Biventricular implantable cardioverter-defibrillator (ICD) at end of device life documented in this encounter [facility] note* Diagnosis Gastroesophageal reflux disease, unspecified whether esophagitis present- Primary Gastroesophageal reflux disease without esophagitis Esophageal reflux Rectal bleeding Hemorrhage of rectum and anus Preop examination Preoperative examination, unspecified Chronic systolic CHF (congestive heart failure) (HCC) Chronic systolic heart failure Athscl heart disease of [place] coronary artery w/o ang pctrs ICD (implantable cardioverter-defibrillator) in place Automatic implantable cardiac defibrillator in situ Hypertriglyceridemia Pure hyperglyceridemia Primary hypertension Unspecified essential hypertension ICD (implantable cardioverter-defibrillator) in place- Primary Automatic implantable cardiac defibrillator in situ [facility] Diagnosis Gastroesophageal reflux disease, unspecified whether esophagitis present- Primary Gastroesophageal reflux disease without esophagitis Esophageal reflux Rectal bleeding Hemorrhage of rectum and anus Preop examination Preoperative examination, unspecified Chronic systolic CHF (congestive heart failure) (HCC) Chronic systolic heart failure Athscl heart disease of [place] coronary artery w/o ang pctrs ICD (implantable cardioverter-defibrillator) in place Automatic implantable cardiac defibrillator in situ Hypertriglyceridemia Pure hyperglyceridemia Primary hypertension Unspecified essential hypertension Encounter for discussion regarding cardiac resynchronization therapy defibrillator (ROAD GRADER OPERATOR-D)- Primary Cardiomyopathy, nonischemic (HCC) Other primary cardiomyopathies Chronic systolic CHF (congestive heart failure) (HCC) Chronic systolic heart failure [facility] Diagnosis Gastroesophageal reflux disease, unspecified whether esophagitis present- Primary Gastroesophageal reflux disease without esophagitis Esophageal reflux Rectal bleeding Hemorrhage of rectum and anus Preop examination Preoperative examination, unspecified Chronic systolic CHF (congestive heart failure) (HCC) Chronic systolic heart failure Athscl heart disease of [place] coronary artery w/o ang pctrs ICD (implantable cardioverter-defibrillator) in place Automatic implantable cardiac defibrillator in situ Hypertriglyceridemia Pure hyperglyceridemia Primary hypertension Unspecified essential hypertension Congestive heart failure, unspecified HF chronicity, unspecified heart failure type (HCC)- Primary [facility] Diagnosis Gastroesophageal reflux disease, unspecified whether esophagitis present- Primary Gastroesophageal reflux disease without esophagitis Esophageal reflux Rectal bleeding Hemorrhage of rectum and anus Preop examination Preoperative examination, unspecified Chronic systolic CHF (congestive heart failure) (HCC) Chronic systolic heart failure Athscl heart disease of [place] coronary artery w/o ang pctrs ICD (implantable cardioverter-defibrillator) in place Automatic implantable cardiac defibrillator in situ Hypertriglyceridemia Pure hyperglyceridemia Primary hypertension Unspecified essential hypertension Cervical pain Cervicalgia [facility] Diagnosis Gastroesophageal reflux disease, unspecified whether esophagitis present- Primary Gastroesophageal reflux disease without esophagitis Esophageal reflux Rectal bleeding Hemorrhage of rectum and anus Preop examination Preoperative examination, unspecified Chronic systolic CHF (congestive heart failure) (HCC) Chronic systolic heart failure Athscl heart disease of [place] coronary artery w/o ang pctrs ICD (implantable cardioverter-defibrillator) in place Automatic implantable cardiac defibrillator in situ Hypertriglyceridemia Pure hyperglyceridemia Primary hypertension Unspecified essential hypertension Dilated cardiomyopathy (HCC) Other primary cardiomyopathies Primary hypertension Unspecified essential hypertension Mixed hyperlipidemia [facility] Diagnosis Gastroesophageal reflux disease, unspecified whether esophagitis present- Primary Gastroesophageal reflux disease without esophagitis Esophageal reflux Rectal bleeding Hemorrhage of rectum and anus Preop examination Preoperative examination, unspecified Chronic systolic CHF (congestive heart failure) (HCC) Chronic systolic heart failure Athscl heart disease of [place] coronary artery w/o ang pctrs ICD (implantable cardioverter-defibrillator) in place Automatic implantable cardiac defibrillator in situ Hypertriglyceridemia Pure hyperglyceridemia Primary hypertension Unspecified essential hypertension Dilated cardiomyopathy (HCC)- Primary Other primary cardiomyopathies ICD (implantable cardioverter-defibrillator) in place Automatic implantable cardiac defibrillator in situ LBBB (left bundle branch block) Other left bundle branch block [facility] Diagnosis Gastroesophageal reflux disease, unspecified whether esophagitis present- Primary Gastroesophageal reflux disease without esophagitis Esophageal reflux Rectal bleeding Hemorrhage of rectum and anus Preop examination Preoperative examination, unspecified Chronic systolic CHF (congestive heart failure) (HCC) Chronic systolic heart failure Athscl heart disease of [place] coronary artery w/o ang pctrs ICD (implantable cardioverter-defibrillator) in place Automatic implantable cardiac defibrillator in situ Hypertriglyceridemia Pure hyperglyceridemia Primary hypertension Unspecified essential hypertension Myofascial pain- Primary Mylagia and myositis, unspecified [facility] Diagnosis Gastroesophageal reflux disease, unspecified whether esophagitis present- Primary Gastroesophageal reflux disease without esophagitis Esophageal reflux Rectal bleeding Hemorrhage of rectum and anus Preop examination Preoperative examination, unspecified Chronic systolic CHF (congestive heart failure) (HCC) Chronic systolic heart failure Athscl heart disease of [place] coronary artery w/o ang pctrs ICD (implantable cardioverter-defibrillator) in place Automatic implantable cardiac defibrillator in situ Hypertriglyceridemia Pure hyperglyceridemia Primary hypertension Unspecified essential hypertension Chronic systolic CHF (congestive heart failure) (HCC) Chronic systolic heart failure Cardiac resynchronization therapy defibrillator (ROAD 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 Cardiomyopathy, nonischemic (HCC) Other primary cardiomyopathies [facility] Diagnosis Gastroesophageal reflux disease, unspecified whether esophagitis present- Primary Gastroesophageal reflux disease without esophagitis Esophageal reflux Rectal bleeding Hemorrhage of rectum and anus Preop examination Preoperative examination, unspecified Chronic systolic CHF (congestive heart failure) (HCC) Chronic systolic heart failure Athscl heart disease of [place] coronary artery w/o ang pctrs ICD (implantable cardioverter-defibrillator) in place Automatic implantable cardiac defibrillator in situ Hypertriglyceridemia Pure hyperglyceridemia Primary hypertension Unspecified essential hypertension Non-ischemic cardiomyopathy (HCC)- Primary Other primary cardiomyopathies [facility] Diagnosis Gastroesophageal reflux disease, unspecified whether esophagitis present- Primary Gastroesophageal reflux disease without esophagitis Esophageal reflux Rectal bleeding Hemorrhage of rectum and anus Preop examination Preoperative examination, unspecified Chronic systolic CHF (congestive heart failure) (HCC) Chronic systolic heart failure Athscl heart disease of [place] coronary artery w/o ang pctrs ICD (implantable cardioverter-defibrillator) in place Automatic implantable cardiac defibrillator in situ Hypertriglyceridemia Pure hyperglyceridemia Primary hypertension Unspecified essential hypertension Myofascial pain- Primary Mylagia and myositis, unspecified Cervical pain Cervicalgia Chronic HFrEF (heart failure with reduced ejection fraction) (HCC)- Primary [facility] Diagnosis Gastroesophageal reflux disease, unspecified whether esophagitis present- Primary Gastroesophageal reflux disease without esophagitis Esophageal reflux Rectal bleeding Hemorrhage of rectum and anus Preop examination Preoperative examination, unspecified Chronic systolic CHF (congestive heart failure) (HCC) Chronic systolic heart failure Athscl heart disease of [place] coronary artery w/o ang pctrs ICD (implantable cardioverter-defibrillator) in place Automatic implantable cardiac defibrillator in situ Hypertriglyceridemia Pure hyperglyceridemia Primary hypertension Unspecified essential hypertension Chronic HFrEF (heart failure with reduced ejection fraction) (HCC)- Primary documented in this encounter [facility] note* Diagnosis Gastroesophageal reflux disease, unspecified whether esophagitis present- Primary Gastroesophageal reflux disease without esophagitis Esophageal reflux Rectal bleeding Hemorrhage of rectum and anus Preop examination Preoperative examination, unspecified Chronic systolic CHF (congestive heart failure) (HCC) Chronic systolic heart failure Athscl heart disease of [place] coronary artery w/o ang pctrs ICD (implantable cardioverter-defibrillator) in place Automatic implantable cardiac defibrillator in situ Hypertriglyceridemia Pure hyperglyceridemia Primary hypertension Unspecified essential hypertension Dilated cardiomyopathy (HCC) Other primary cardiomyopathies Pacemaker reprogramming/check Fitting and adjustment of cardiac pacemaker [facility] Diagnosis Gastroesophageal reflux disease, unspecified whether esophagitis present- Primary Gastroesophageal reflux disease without esophagitis Esophageal reflux Rectal bleeding Hemorrhage of rectum and anus Preop examination Preoperative examination, unspecified Chronic systolic CHF (congestive heart failure) (HCC) Chronic systolic heart failure Athscl heart disease of [place] coronary artery w/o ang pctrs ICD (implantable cardioverter-defibrillator) in place Automatic implantable cardiac defibrillator in situ Hypertriglyceridemia Pure hyperglyceridemia Primary hypertension Unspecified essential hypertension Congestive heart failure, unspecified HF chronicity, unspecified heart failure type (HCC)- Primary Pacemaker reprogramming/check Fitting and adjustment of cardiac pacemaker [facility] Diagnosis Gastroesophageal reflux disease, unspecified whether esophagitis present- Primary Gastroesophageal reflux disease without esophagitis Esophageal reflux Rectal bleeding Hemorrhage of rectum and anus Preop examination Preoperative examination, unspecified Chronic systolic CHF (congestive heart failure) (HCC) Chronic systolic heart failure Athscl heart disease of [place] coronary artery w/o ang pctrs ICD (implantable cardioverter-defibrillator) in place Automatic implantable cardiac defibrillator in situ Hypertriglyceridemia Pure hyperglyceridemia Primary hypertension Unspecified essential hypertension Chronic systolic CHF (congestive heart failure) (HCC) Chronic systolic heart failure Cardiac resynchronization therapy defibrillator (ROAD 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 Cardiomyopathy, nonischemic (HCC) Other primary cardiomyopathies Pacemaker reprogramming/check Fitting and adjustment of cardiac pacemaker [facility] Diagnosis Gastroesophageal reflux disease, unspecified whether esophagitis present- Primary Gastroesophageal reflux disease without esophagitis Esophageal reflux Rectal bleeding Hemorrhage of rectum and anus Preop examination Preoperative examination, unspecified Chronic systolic CHF (congestive heart failure) (HCC) Chronic systolic heart failure Athscl heart disease of [place] coronary artery w/o ang pctrs ICD (implantable cardioverter-defibrillator) in place Automatic implantable cardiac defibrillator in situ Hypertriglyceridemia Pure hyperglyceridemia Primary hypertension Unspecified essential hypertension Chronic systolic CHF (congestive heart failure) (HCC) Chronic systolic heart failure Cardiac resynchronization therapy defibrillator (ROAD 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 Cardiomyopathy, nonischemic (HCC) Other primary cardiomyopathies Pacemaker reprogramming/check Fitting and adjustment of cardiac pacemaker [facility] noteNo assessment information availableWWexner [facility] Work Phone: History and physical note Author Aneudy Kenyon [facility] Note Date/Time May 25, 2025 8:4 3am [facility] Medical Records Department [address] [place] [address] History & Physical Exam 05/25/25 0843 MR#: [id number] Acct: [id number] Name: VINCENT MADDEN Rep #:[id number] : 1960 65 From: Aneudy mancuso MD PCP: Care Physician,No Primary Status :[facility] Location: [place] [address] History and Physical Date of Admission: 05/25/25 Intake Vital Signs 04/26/2514:41 04/30/2508:43 Height 5 ft 9 in 5 ft 9 in Weight: 201 lb BMI 29.7 BP 111/78 Blood Pressure Location Rt brachial Position Sitting Respiration 16 Intake Visit Reasons: H PYLORI TEST Chief Complaint: EGD 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 And Processes 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 Required: No Is patient in pain?: Yes (epigastric area ) Pain scale (1-10): 3 Allergies No Known Allergies Allergy (Verified 04/30/25 08:44) Medications ?Medication ?Instructions ?Recorded ?Confirmed ?Type ondansetron 4 mg disintegrating 4 mg PO Q6H PRN nausea and 04/26/25 Rx tablet vomiting #20 tabs aspirin 81 mg tablet 81 mg PO QDAY 04/30/25 04/30/25 History atorvastatin 20 mg tablet 20 mg PO QDAY 04/30/25 04/30/25 History carvedilol 12.5 mg tablet 12.5 mg PO BID 04/30/25 04/30/25 History esomeprazole magnesium 40 mg 40 mg PO QDAY 04/30/25 04/30/25 History capsule,delayed release furosemide 40 mg tablet 40 mg PO QDAY 04/30/25 04/30/25 History lisinopril 20 mg tablet 20 mg PO BID 04/30/25 04/30/25 History spironolactone 25 mg tablet mg PO 04/30/25 04/30/25 History tadalafil 20 mg tablet (Cialis) 20 mg PO QDAY PRN 04/30/25 04/30/25 Hist ory Have you fallen in the past year?: No PFSH Medical History H pylori ulcer Rectal polyp Rectal bleeding GERD (gastroesophageal reflux disease) HTN (hypertension) Hypertriglyceridemia Hernia CAD (coronary atherosclerotic disease) Palpitation Cardiomyopathy LBBB (left bundle branch block) Pacemaker Surgical History S/P cardiac pacemaker procedure S/P carpal tunnel release Previous back surgery Social History (Updated 04/30/25 @ 08:43 by Amber Akers) Smoking Status: Former smoker alcohol intake: never HPI HPI HPI: Patient is a 64-year-old male here with epigastric pain. The patient reports that he has been having weight gain despite not eating. He has a history of H. pylori. Patient feels like his H. pylori is back again. Patient had a recent EGD and colonoscopy in November. He reports that he was feeling a lot of bloating after eating and having a lot of gas. He is already on Nexium ROS General General: Yes weight change and fatigue; No appetite, colon cancer, breast cancer or weakness HEENT HEENT: Yes difficulty swallowing; No eye injury, eye surgery, swollen glands or hoarseness Endo Endocrine: No thyroid disease, diabetes mellitus, thyroid cancer, Hair loss, heat intolerance or cold intolerance Skin Skin: No rash or changing moles Breast Breast: No left breast lump, right breast lump, nipple discharge, breast pain, abnormal mammogram, abnormal US or breast enlargement Musc Musculoskeletal: Yes back problems and arthritis; No rheumatoid arthritis, gout or joint pain Cardio Cardiovascular: Yes pacemaker, heart disease, atrial fibrillation and high bloodpressure; No murmur, heart attack, heart stent, palpitations, shortness of breath with exertion or chest pain Psych Psychiatric: No depression, anxiety or hearing voices Resp Respiratory: Yes shortness of breath, Yes sleep apnea, Yes cough, No COPD, No asthma, No emphysema and No wheezing Gastro Gastrointestinal: Yes abdominal pain, No nausea or vomiting, Yes diarrhea, Yes constipation, Yes blood in stool, Yes acid reflux, No hemorrhoids, No ulcers, Nogallbladder problem and No black,tarry stools Rigoberto Hematologic: No blood thinners, No blood disorders, No bleeding, No anemia and No blood clots Neuro Neurologic: No system reviewed and no additional complaints, except as documented, No as per HPI, No abnormal gait, No abnormal hearing, No abnormal movements, No abnormal speech, No behavioral changes, No burning sensations, No confusion, No convulsions, No disequilibrium, No dizziness, No localized weakness, No frequent falls, No headache(s), No lack of coordination, No loss ofvision, No memory loss, No numbness, No other visual disturbances, No radicular pain, No restless legs, No sensory deficit, No syncope, No tingling, No tremor(s), No weakness and No other Exam Const General: cooperative Orientation: alert and oriented x3 HENMT Head: normal to inspection Neck Neck: normal visual inspection and full ROM Chest Chest palpation & inspection: normal inspection of the chest Resp Effort & Inspection: normal respiratory effort Auscultation: clear to auscultation bilaterally Cardio Rate: regular rate Rhythm: regular rhythm GI Inspection: non-distended Palpation: soft and nontender Skin General: no rashes or lesions noted Neuro General: patient alert and patient oriented x3 Extrem General: full ROM Psych Appearance: grossly normal Mental Status: mental status grossly normal Assessment and Plan Assessment and Plan (1) History of Helicobacter pylori infection: Status: Acute (2) Abdominal pain: Status: Acute Qualifiers: Abdominal location: epigastric Qualified Code(s): R10.13 - Epigastric pain Orders: Orders EGD Today Plan Patient have a history of H. pylori and he believes it is back. I discussed performing EGD with biopsies and evaluate the stomach for any ulceration. I explained endoscopy in detail to the patient. I explained the risks including but not limited to stroke or heart attack with anesthesia, perforation of the GItract, bleeding, infection. I explained that any of these could necessitate further emergency surgery. The patient understands and all questions were answered sufficiently. The patient wishes to proceed with procedure. Aneudy Kenyon MD Pager: [facility] [address] [place] [address], [address] [place] [address] Office: I have examined the patient and the H&P has been reviewed. There are no clinicalchanges since date of exam. 05/25/25 0843 <Electronically signed by Aneudy Kenyon MD> Cosigner Signature (if applicable): CC: Dr. Aneudy Kenyon MD; No Primary Care Physician~ Signed [facility] Work Phone: [facility] Outpatient Procedure (Routine) Status Reason Specialty Diagnoses / Procedures Referred By Contact Referred To Contact Pending Review Auto-Generated Referral [facility] Diagnoses Palpitations Chronic systolic CHF (congestive heart failure) (HCC) Cardiomyopathy, nonischemic (HCC) Procedures ECHO TTE W/DOPPLER, COMPLETE Tomasz Louis MD [address] [place] [address] [place] [address] Fax: [facility] [address] [address] [facility] for referral (narrative)* Diagnostic Procedure Only (Routine) Status Reason Specialty Diagnoses / Procedures Referred By Contact Referred To Contact Pending Review Auto-Generated Referral [facility] Diagnoses Shortness of breath Procedures NM CARDIAC PERF STRESS/PHARM MYOCARDIAL IMAGING, MULTIPLE Tomasz Louis MD [address] [place] [address] [place] [phone] Fax: [facility] [address] [place] [address] [facility] for referral (narrative)* Outpatient Procedure (Routine) Status Reason Specialty Diagnoses / Procedures Referred By Contact Referred To Contact Authorized Auto-Generated Referral [facility] [place] Diagnoses Palpitations Chronic systolic CHF (congestive heart failure) (HCC) Cardiomyopathy, nonischemic (HCC) Procedures ECHO TTE W/DOPPLER, Tomasz Renee MD [address] [place] [address] [place] [address] Fax: [facility] [address] [address] [facility] for referral (narrative)* Diagnostic Procedure Only (Routine) Status Reason Specialty Diagnoses / Procedures Referred By Contact Referred To Contact Pending Review Auto-Generated Referral [facility] Diagnoses Shortness of breath Procedures NM CARDIAC PERF STRESS/PHARM MYOCARDIAL IMAGING, MULTIPLE Tomasz Louis MD [address] [place] [address] [facility] [address] [place] [phone] [facility] for referral (narrative)* Outpatient Procedure (Routine) - Pending Review Specialty Diagnoses / Procedures Referred By Contrajiv t Referred To Contact [facility] [place] Diagnoses Gastroesophageal reflux disease without esophagitis Procedures EGD DIAGNOSTIC ESOPHAGOGASTRODUODENOSC OPY TRANSORAL DIAGNOSTIC Elvin Reynoso MD [address] [address] [place] [phone] [place] [address] Referral ID Status Reason Start Date Expiration Date Visits Requested Visits Authorized [id number] Pending Review Auto-Generat ed Referral 04/15/2022 03/11/2023 1 1 [facility] for referral (narrative)* Outpatient Procedure (Routine) - Pending Review Specialty Diagnoses / Procedures Referred By Contrajiv t Referred To Contact [facility] [place] Diagnoses Rectal bleeding History of colonic polyps Procedures COLONOSCOPY DIAGNOSTIC COLONOSCOPY FLX DX W/COLLJ SPEC WHEN PFRMD Elvin Reynoso MD 1 [facility] [address] [place] [address] [address] Referral ID Status Reason Start Date Expiration Date Visits Requested Visits Authorized [id number] Pending Review Auto-Generat ed Referral 04/15/2022 03/11/2023 1 1 [facility] for referral (narrative)* Outpatient Procedure (Routine) - Pending Review Specialty Diagnoses / Procedures Referred By Contac t Referred To Contact [facility] [place] Diagnoses Rectal bleeding Procedures COLONOSCOPY SCREENING COLONOSCOPY FLX DX W/COLLJ SPEC WHEN PFRMD Elvin Reynoso MD 1 [facility] [address] [place] [address] [place] [phone] [place] [address] Referral ID Status Reason Start Date Expiration Date Visits Requested Visits Authorized [id number] Pending Review Auto-Generat ed Referral 09/20/2023 09/20/2024 1 1 * Outpatient Procedure (Routine) - Pending Review Specialty Diagnoses / Procedures [facility] Referred To Contact [facility] [place] Diagnoses Gastroesophageal reflux disease without esophagitis Procedures EGD DIAGNOSTIC ESOPHAGOGASTRODUODENOSC OPY TRANSORAL DIAGNOSTIC Elvin Reynoso MD [address] [phone] [facility] [address] [place] [address] Referral ID Status Reason Start Date Expiration Date Visits Requested Visits Authorized [id number] Pending Review Auto-Generat ed Referral 09/20/2023 09/20/2024 1 1 [facility] for referral (narrative)* Outpatient Procedure (Routine) - Pending Review Specialty Diagnoses / Procedures Referred By Contac t Referred To Contact [facility] Diagnoses Dilated cardiomyopathy (HCC) Primary hypertension Mixed hyperlipidemia Procedures ECHO ECHO TTHRC R-T 2D W/WOM-MODE COMPL SPEC&COLR D Tomasz Louis MD [address] [place] [address] [place] [address] [facility] [place] [address] [place] [address] Referral ID Status Reason Start Date Expiration Date Visits Requested Visits Authorized [id number] Pending Review Auto-Generat ed Referral 01/08/2025 02/08/2025 1 1 [facility] for referral (narrative)No reason for referral information availableWWex[facility] Work Phone: Reason for visit Narrative* Outpatient Procedure (Routine) Status Reason Specialty Diagnoses / Procedures Referred By Contact Referred To Contact Authorized Auto-Generated Referral [facility] Diagnoses Palpitations Chronic systolic CHF (congestive heart failure) (HCC) Cardiomyopathy, nonischemic (HCC) Procedures ECHO TTE W/DOPPLER, COMPLETE Tomasz Louis MD [address] [address] [facility] [place] [address] [place] [address] [facility] for visit Narrative* Diagnostic Procedure Only (Routine) Status Reason Specialty Diagnoses / Procedures Referred By Contact Referred To Contact Pending Review Auto-Generated Referral [facility]CULAR [facility] Diagnoses Shortness of breath Procedures NM CARDIAC PERF STRESS/PHARM MYOCARDIAL IMAGING, MULTIPLE Tomasz Louis MD [address] [address] Fax: Molecular [facility] Functional Imaging [address] [place] [address] [facility] for visit Narrative* Outpatient Procedure (Routine) - Closed Specialty Diagnoses / Procedures Referred By Contac t Referred To Contact [facility] Diagnoses Rectal bleeding Procedures COLONOSCOPY DIAGNOSTIC COLONOSCOPY FLX DX W/COLLJ SPEC WHEN PFRMD Angeles, Elvin Cheng MD [address] [id number] [facility] [place] [address] [place] [address] Referral ID Status Reason Start Date Expiration Date V isits Requested Visits Authorized [id number] Closed Auto-Generate d Referral 11/19/2023 12/16/2023 1 1 [facility] for visit Narrative* Diagnostic Procedure Only (Routine) - Closed Specialty Diagnoses / Procedures Referred By Contac t Referred To Contact XR IMAGING Diagnoses Cervical pain Procedures XR CERV OTHER 6V AP/LAT/FLX/EXT/OBL RADEX SPINE CERVICAL 6 OR MORE VIEWS Madelyn Dc TECHNOLOGY INTERN.TECHNICAL SERVICES REPRESENTATIVE [address] [place] [address] Phone: tel: fax: [place] [phone] Referral ID Status Reason Start Date Expiration Date V isits Requested Visits Authorized [id number] Closed Auto-Generate d Referral 12/29/2024 01/28/2026 [facility] Procedure (Routine) - Closed Specialty Diagnoses / Procedures Referred By Contac t Referred To Contact [facility] Diagnoses Dilated cardiomyopathy (HCC) Primary hypertension Mixed hyperlipidemia Procedures ECHO ECHO TTHRC R-T 2D W/WOM-MODE COMPL SPEC&COLR D Tomasz Louis MD [address] [place] [address] Phone: tel: fax: [facility] [place] [address] [place] [address] Referral ID Status Reason Start Date Expiration Date V isits Requested Visits Authorized [id number] Closed Auto-Generate d Referral 12/28/2024 10/17/2025 1 1 [facility] History of Present Illness * Vinita Gonzalez - 07/01/2020 11:52 AM EDT 07-01-20 Patient due to schedule Medicare Wellness appointment. I called and spoke to patient. He is scheduled for Medicare Wellness 07-15-[address] Sauceda. Isidra Gonzalez Population Health Navigator documented in this encounter* Jaleel Vasquez - 09/02/2020 10:53 AM EST HISTORY OF PRESENT ILLNESS: Vincent Madden was provided orthopedic evaluation regarding right shoulder complaints. Patient is a 60-year-old [id number] male on medical disability regarding heart disease and chronic low back pain who complains of gradual worsening right shoulder pain over the last several months. He denies acute right shoulder injury or identifiable overuse. Right shoulder pain in the anterior lateral shoulder into the anterior arm aggravated by reaching or lifting at or above shoulder level with daily activity. Symptoms include right shoulder night discomfort waking from sleep if rolling onto the right side. Right shoulder pain graded 8/10 at worst with activity. Right shoulder fairly comfortableresting the arm at his side. He denies numbness or tingling right upper extremity. No current significant neck complaints. He is not currently taking Tylenol or anti-inflammatory medicine and tends to avoid taking additional medicines other than for his heart as possible. He denies fever, chills orsweats. 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 Patient describes intermittent right shoulder problem over several years with past right shoulder x-rays, 08/23/2001 and 05/29/2006 reported as normal. Past medical history includes heart disease/cardiomyopathy with indwelling defibrillator (patient states MRI safe ). PAST HISTORY: PAST MEDICAL HISTORY Diagnosis Date Abnormal EKG Atherosclerotic heart disease of [place] coronary artery without angina pectoris Automatic implantable cardioverter-defibrillator in situ BBB (bundle branch block) Benign neoplasm of colon Cardiomegaly Cardiomyopathy (HCC) NIDCM CHF (congestive heart failure) systolic 12/02/2012 Chronic pain of left thumb Coronary arteriosclerosis Dilated cardiomyopathy (HCC) 12/02/2012 Latest Echo 05/2016 with EF 40% can be found in Care Everywhere Dyspnea Epigastric pain Fatigue GERD (gastroesophageal reflux disease) Hiatal hernia LBBB (left bundle branch block) Left ventricular failure (HCC) Palpitations SOB (shortness of breath) PAST SURGICAL HISTORY Procedure Laterality Date CARDIAC CATH Left 06/2011 COLONOSCOPY W/BX 12/24/2017 EGD W/O BRSH SPECIMEN W/BX 12/24/2017 LOW BACK DISK SURGERY PACEMAKER 02/26/2016 [employer] PAST SURGICAL HISTORY OF pin removed from the left thumb Current Outpatient Medications Medication Sig topiramate (TOPAMAX) 100 mg tablet Take 1 tablet by mouth daily at bedtime. meclizine (ANTIVERT) 25 mg tab Take 1 tablet by mouth three times daily as needed. lisinopril (ZESTRIL, PRINIVIL) 20 mg tablet TAKE 1 TABLET BY MOUTH TWICE DAILY carvedilol (COREG) 12.5 mg tablet TAKE 1 TABLET BY MOUTH TWICE DAILY spironolactone (ALDACTONE) 25 mg tablet TAKE 1 TABLET BY MOUTH ONCE DAILY furosemide (LASIX) 40 mg tablet TAKE 1 TABLET BY MOUTH ONCE DAILY esomeprazole (NEXIUM) 40 mg capsule Take 1 capsule by mouth once daily. gabapentin (NEURONTIN) 600 mg tablet Take 600 mg by mouth three times daily. aspirin, enteric coated (ADULT LOW DOSE ASPIRIN) 81 mg EC tablet Take 1 tablet by mouth once daily. No current facility-administered medications for this visit. ALLERGIES No Known Allergies Tobacco Use: 1 packs/day, for 10 years. Quit 12/05/2006. Alcohol Use: No (heavy alcohol consumption and quit in 1987) REVIEW OF SYSTEMS: GENERAL: Well developed, well nourished. No acute distress PAIN: negative for pain today but does have a pain level 10/10 when sleeping or raising right arm CARDIOVASCULAR: Negative for chest pain, leg swelling and palpations. MSK: rt side back and leg pain, past surgery on back SKIN: Negative for lesions, rash, itching, metal sensitivity NEURO: numbness and tingling in rt toes ENDOCRINE: Negative for Diabetes Type 1 and Type 2 HEMATOLOGY: Negative for excessive bleeding, clots, bleeding disorders. PHYSICAL EXAMINATION: Vital Signs Resp 18 Ht 5' 8 (1.73m) Wt 190 lb (86.2kg) BMI 28.90 kg/(m^2). Physical exam reveals a pleasant gentleman of stated age in no acute distress. Mild tenderness of the posterior cervical spine. Local posterior neck ache on cervical extension with mild limited neck motion. No radiating right shoulder pain on cervical motion or neck axial compression. Right shoulder symmetrical contour without swelling, ecchymosis or erythema. No palpable right shoulder joint or bursal effusion. No rotator cuff muscle asymmetry. No deformity the biceps right anterior arm. Rightacromioclavicular joint symmetrical contour and nontender. Distal clavicle stable. No scapular winging. Subacromial motion essentially smooth. Mild tenderness of the coracoacromial arch. No distinct p alpable defect of the anterior cuff insertion region. No local tenderness of the anterior and posterior right shoulder joint region. No palpable glenohumeral joint crepitance. Right shoulder painful arc on active forward elevation to 105 degrees sitting. Right shoulder active assisted forward elevation 140 degrees without stiffness compared to left shoulder active forward elevation 135 degrees. Right shoulder active external rotation 45 degrees. Internal rotation behind the back below L5 compared to L2. Right lateral shoulder ache on cross body reaching with mild stiffness compared to the left. Mild impingement and reinforcement sign passively. Symmetrical strength on resisted right shoulder abduction, forward flexion and external rotation. Positive right shoulder pain and weakness on supraspinatus testing, grade 4 /5 strength. Symmetrical strength in resisted elbow flexion. Biceps testing non-provocative. Distal neurologic testing C6-T1 upper extremities unremarkable. Radial pulse symmetrical. RADIOGRAPHS: Right shoulder radiographs, 09/02/2020, including AP, axillary and outlet view reveals normal glenohumeral joint space and alignment. No humeral head superior migration. Normal scapulohumeral line. No apparent acromial spurring or subacromial calcification. Mild degenerative changes of the acromioclavicular joint. ASSESSMENT: M75.81 Tendinitis of right rotator cuff (primary encounter diagnosis) Comment: Right shoulder clinical rotator cuff tendinitis, chronic history. Possible degenerative rotator cuff tear. No history of right shoulder trauma. PLAN: 1. Tendinitis of right rotator cuff - CONSULT TO PHYSICAL THERAPY (AG) Patient was discussed treatment options regarding right shoulder clinical rotator cuff tendinitis. Initial recommendations include physical therapy for right shoulder rotator cuff stretching and strengthening exercises, including local modalities. Patient was recommended relative rest with instruction to avoid repetitive overhead reaching, especially in shoulder abduction, and avoid pushing, pulling or lifting greater than 10 pounds right shoulder. Tylenol and/or Aleve oral anti-inflammatory medicine encouraged if medically allowed with discussion of usual precautions. Recommend follow-up in 6 weeks. If right shoulder symptoms persist, cortisone subacromial injection may be further considered. Jaleel Vasquez MD documented in this encounter* Kenn Sauceda - 08/26/2020 8:56 AM EST This note was created using [employer]. Subjective Vincent Madden is a 60 year old male. Patient here for physical, Patient wants you to look at his left hand Review of Systems Constitutional: Negative for activity change, appetite change, chills, diaphoresis, fatigue, fever and unexpected weight change. HENT: Negative for congestion, dental problem, drooling, ear discharge, ear pain, facial swelling, hearing loss, mouth sores, nosebleeds, postnasal drip, rhinorrhea, sinus pressure, sinus pain, sneezing, sore throat, tinnitus, trouble swallowing and voice change. Eyes: Negative for photophobia, pain, discharge, redness, itching and visual disturbance. Respiratory: Negative for apnea, cough, choking, chest tightness, shortness of breath, wheezing andstridor. Cardiovascular: Negative for chest pain, palpitations and leg swelling. Gastrointestinal: Negative for abdominal distention, abdominal pain, anal bleeding, blood in stool,constipation, diarrhea, nausea, rectal pain and vomiting. Endocrine: Negative for cold intolerance, heat intolerance, polydipsia, polyphagia and polyuria. Genitourinary: Negative for decreased urine volume, difficulty urinating, discharge, dysuria, enuresis, flank pain, frequency, genital sores, hematuria, penile pain, penile swelling, scrotal swelling, testicular pain and urgency. Musculoskeletal: Positive for back pain and neck pain. Negative for arthralgias, gait problem, joint swelling, myalgias and neck stiffness. Skin: Negative for color change, pallor, rash and wound. Allergic/Immunologic: Negative for environmental allergies, food allergies and immunocompromised state. Neurological: Negative for dizziness, tremors, seizures, syncope, facial asymmetry, speech difficulty, weakness, light-headedness, numbness and headaches. Hematological: Negative for adenopathy. Does not bruise/bleed easily. Psychiatric/Behavioral: Negative for agitation, behavioral problems, confusion, decreased concentration, dysphoric mood, hallucinations, self-injury, sleep disturbance and suicidal ideas. The patientis not nervous/anxious and is not hyperactive. Objective There were no vitals taken for this visit. Physical Exam Vitals signs and nursing note reviewed. Constitutional: General: He is awake. Appearance: Normal appearance. He is well-developed, well-groomed and overweight. HENT: Head: Normocephalic and atraumatic. Right Ear: Hearing, tympanic membrane, ear canal and external ear normal. Left Ear: Hearing, tympanic membrane, ear canal and external ear normal. Nose: Nose normal. Mouth/Throat: Lips: [place]. Mouth: Mucous membranes are moist. Tongue: No lesions. Palate: No mass. Pharynx: Oropharynx is clear. Uvula midline. Eyes: General: Lids are normal. Vision grossly intact. Extraocular Movements: Extraocular movements intact. Right eye: No nystagmus. Left eye: No nystagmus. Conjunctiva/sclera: Conjunctivae normal. Pupils: Pupils are equal, round, and reactive to light. Funduscopic exam: Right eye: No AV nicking. Red reflex present. Left eye: No AV nicking. Red reflex present. Slit lamp exam: Right eye: Anterior chamber quiet. Left eye: Anterior chamber quiet. Neck: Musculoskeletal: Normal range of motion and neck supple. Vascular: No carotid bruit. Cardiovascular: Rate and Rhythm: Normal rate and regular rhythm. Pulses: Normal pulses. Heart sounds: Normal heart sounds. Pulmonary: Effort: Pulmonary effort is normal. Breath sounds: Normal breath sounds. Abdominal: General: Abdomen is flat. Bowel sounds are normal. Palpations: Abdomen is soft. Tenderness: There is no right CVA tenderness or left CVA tenderness. Musculoskeletal: Right lower leg: No edema. Left lower leg: No edema. Lymphadenopathy: Cervical: No cervical adenopathy. Skin: General: Skin is warm and dry. Capillary Refill: Capillary refill takes less than 2 seconds. Coloration: Skin is not jaundiced. Findings: No bruising. Neurological: General: No focal deficit present. Mental Status: He is alert and oriented to person, place, and time. Mental status is at baseline. Psychiatric: Mood and Affect: Mood normal. Behavior: Behavior normal. Behavior is cooperative. Thought Content: Thought content normal. Judgment: Judgment normal. Assessment and Plan ASSESSMENT/PLAN: 1. Benign paroxysmal positional vertigo, unspecified laterality - ICD9: 386.11, ICD10: H81.10 (primary diagnosis) - MECLIZINE 25 MG TABLET 2. Migraine with aura, not intractable, without status migrainosus - ICD9: 346.00, ICD10: G43.109 - TOPIRAMATE 100 MG TABLET 3. Heme positive stool - ICD9: 792.1, ICD10: R19.5 - CONSULT TO GENERAL SURGERY 4. Screening for colon cancer - ICD9: V76.51, ICD10: Z12.11 - CONSULT TO GENERAL SURGERY 5. Screening for lipid disorders - ICD9: V77.91, ICD10: Z13.220 - LIPID PANEL, NONFASTING - COMP METABOLIC PANEL 6. Screening for diabetes mellitus - ICD9: V77.1, ICD10: Z13.1 - LIPID PANEL, NONFASTING - COMP METABOLIC PANEL 7. Thumb pain, right - ICD9: 729.5, ICD10: M79.644 - CONSULT TO ORTHOPAEDICS 8. Chronic right shoulder pain - ICD9: 719.41, 338.29, ICD10: M25.511, G89.29 - CONSULT TO ORTHOPAEDICS 9. Wellness examination - ICD9: V70.0, ICD10: Z00.00 - Recommended regular aerobic exercise. - Follow up for annual exam in one year. Kenn Sauceda DO documented in this encounter* Suzy Burris (Pound Attendant.Good Humor Vendor) - 10/24/2020 8:00 AM EST [facility] Cardiology Electrophysiology PRIMARY CARE PHYSICIAN: Kenn Sauceda DO [address] [place] [address] CHIEF COMPLAINT: Annual cardiovascular medicine follow-up. HISTORY OF PRESENT ILLNESS: Mr. Madden is a 60 year old male who presents today for follow-up regarding ROAD GRADER OPERATOR- D. The patient has a history of congestive heart failure and nonischemic dilated cardiomyopathy, s/p ROAD GRADER OPERATOR-D implanted 02/26/2016. He had an echocardiogram 06/02/2016 at [facility] that showed his LVEF improved from 25%to 40% after ROAD GRADER OPERATOR. He last saw Dr. Salcedo in September/2019 and reported doing well at that time. Interval History: The patient reports he has been well over the past year, offers no complaints. His blood pressure is elevated this morning, states he has not taken his medications yet, he also states his PCP recently retired, he has not reestablished with a primary care doctor, I have encouraged him to establish with a new PCP. He used to be followed by Dr. Louis in the past, has not seen a can feeder in several years. He denies any issues with the left upper chest ICD site, has not been aware of any therapies from the ICD. He denies chest discomfort, palpitations, shortness of breath, lightheadedness, dizziness, near- syncope or syncope. PAST MEDICAL HISTORY Diagnosis Date Abnormal EKG Atherosclerotic heart disease of [place] coronary artery without angina pectoris Automatic implantable cardioverter-defibrillator in situ BBB (bundle branch block) Benign neoplasm of colon Cardiomegaly Cardiomyopathy (HCC) NIDCM CHF (congestive heart failure) systolic 12/02/2012 Chronic pain of left thumb Coronary arteriosclerosis Dilated cardiomyopathy (HCC) 12/02/2012 Latest Echo 05/2016 with EF 40% can be found in Care Everywhere Dyspnea Epigastric pain Fatigue GERD (gastroesophageal reflux disease) Hiatal hernia LBBB (left bundle branch block) Left ventricular failure (HCC) Palpitations SOB (shortness of breath) PAST SURGICAL HISTORY Procedure Laterality Date CARDIAC CATH Left 06/2011 COLONOSCOPY W/BX 12/24/2017 EGD W/O BRSH SPECIMEN W/BX 12/24/2017 LOW BACK DISK SURGERY PACEMAKER 02/26/2016 [employer] PAST SURGICAL HISTORY OF pin removed from the left thumb Social History Tobacco Use Smoking status: Former Smoker Packs/day: 1.00 Years: 10.00 Pack years: 10.00 Quit date: 12/05/2006 Years since quittin.8 Smokeless tobacco: Never Used Substance Use Topics Alcohol use: No Comment: heavy alcohol consumption and quit in 1987 Drug use: No Family History Problem Relation Age of Onset Coronary Artery Disease Father a. CABG, valve replacement Heart Father Coronary Artery Disease Mother a. CABG, carotid artery endarterectomy bilateral Breast Cancer Mother Heart Mother None Brother 3 brothers and one sister a.OK Cancer Brother one brother a. Colon Cancer Brother Heart Other uncle other (scd) Other uncle and aunt scd other (Heart Attack) Other ALLERGIES Allergen Reactions Buprenorphine Other: See Comments MEDICATIONS: topiramate (TOPAMAX) 100 mg tablet Take 1 tablet by mouth daily at bedtime. meclizine (ANTIVERT) 25 mg tab Take 1 tablet by mouth three times daily as needed. lisinopril (ZESTRIL, PRINIVIL) 20 mg tablet TAKE 1 TABLET BY MOUTH TWICE DAILY carvedilol (COREG) 12.5 mg tablet TAKE 1 TABLET BY MOUTH TWICE DAILY spironolactone (ALDACTONE) 25 mg tablet TAKE 1 TABLET BY MOUTH ONCE DAILY furosemide (LASIX) 40 mg tablet TAKE 1 TABLET BY MOUTH ONCE DAILY esomeprazole (NEXIUM) 40 mg capsule Take 1 capsule by mouth once daily. gabapentin (NEURONTIN) 600 mg tablet Take 600 mg by mouth three times daily. aspirin, enteric coated (ADULT LOW DOSE ASPIRIN) 81 mg EC tablet Take 1 tablet by mouth once daily. REVIEW OF SYSTEMS: Review of Systems Constitutional: Negative for chills, diaphoresis and fever. Respiratory: Negative for cough, hemoptysis, sputum production, shortness of breath and wheezing. Cardiovascular: Negative for chest pain, palpitations, orthopnea, leg swelling and PND. Gastrointestinal: Negative for abdominal pain, constipation, diarrhea, heartburn, nausea and vomiting. Genitourinary: Negative for dysuria, frequency and urgency. Musculoskeletal: Negative for myalgias. Neurological: Negative for dizziness, loss of consciousness and headaches. PHYSICAL EXAMINATION: BP 170/102 Pulse 77 Ht 5' 8 (1.73m) Wt 200 lb (90.7kg) SpO2 98% BMI 30.42 kg/(m^2). Physical Exam Constitutional: He is oriented to person, place, and time and well-developed, well-nourished, and in no distress. Vital signs are normal. No distress. HENT: Head: Normocephalic and atraumatic. Neck: No JVD present. Carotid bruit is not present. Cardiovascular: Normal rate, regular rhythm, S1 normal, S2 normal and intact distal pulses. Exam reveals no gallop. No murmur heard. Pulses: Radial pulses are 2+ on the right side and 2+ on the left side. Posterior tibial pulses are 2+ on the right side and 2+ on the left side. Left upper chest ICD site without signs of infection, erythema or swelling. Pulmonary/Chest: Effort normal and breath sounds normal. No respiratory distress. He has no wheezes. He has no rales. He exhibits no tenderness. Musculoskeletal: General: No edema. Normal range of motion. Cervical back: Neck supple. Neurological: He is alert and oriented to person, place, and time. Skin: Skin is warm and dry. He is not diaphoretic. Nails show no clubbing. Psychiatric: Affect normal. Nursing note and vitals reviewed. CARDIOVASCULAR MEDICINE TESTING: Device Check: [facility] device clinic 09/02/2020: Report copied forward: ICD check multiple lead biventricular system with programming. ID x2. Here for routine ICD evaluation. Incision/ pocket without signs of infection. Presenting rhythm - BiV paced. Interrogation shows no VT, VF or mode switch episodes. Battery longevity is estimated at 2.6 years and charge times stable. Lead impedances, sensing and pacing thresholds stable. Counters cleared. Next device check scheduled for patient, questions answered. PLAN AND RECOMMENDATIONS: ASSESSMENT/PLAN: 1. Cardiac resynchronization therapy defibrillator (ROAD 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 - ICD9: V45.02, ICD10: Z95.810 (primary diagnosis) -[employer] ROAD GRADER OPERATOR-D system implanted 02/2016 for primary prevention of sudden cardiac in the setting of nonischemic cardiomyopathy, LVEF 25%. He is doing well from a device perspe ctive. We reviewed most recent device check, next remote interrogation scheduled for 12/09/2020. He will continue to follow with [facility] device clinic quarterly (3x/year remotely and in-clinic annually). He will follow-up in [address] Monreal or ADY, or call sooner should any issues arise, patientverbalizes understanding. 2. Chronic systolic CHF (congestive heart failure) (HCC) - ICD9: 428.22, 428.0, ICD10: I50.22 -appears euvolemic and compensated on exam, on medical therapy, he currently does not have a can feeder, followed with Dr. Louis many years ago, will put in a referral to reestablish with cardiology. 3. Cardiomyopathy, nonischemic (HCC) - ICD9: 425.4, ICD10: I42.8 -LVEF improved from 25% to 40% on echocardiogram 05/[address] GRADER OPERATOR, stable, on medical therapy, he currently does not have a can feeder, followed with Dr. Louis many years ago, will put in a referral to reestablish with cardiology. 4. LBBB (left bundle branch block) - ICD9: 426.3, ICD10: I44.7 -ROAD GRADER OPERATOR-D system in situ, see above. 5. Primary hypertension - ICD9: 401.9, ICD10: I10 -blood pressure this morning 170/102, upon my recheck 162/100. Patient states he has not taken his medications yet this morning. He is on several medications to manage his cardiac conditions and blood pressure, though he currently does not have a can feeder, followed with Dr. Louis many years ago, referral entered for cardiology, and explained to patient the need for can feeder to follow his care, patient verbalized understanding. - Continue current medication(s) - Encouraged dietary sodium restriction/DASH diet - Recommended regular aerobic exercise. - Reviewed risks of HTN and principles of treatment - Goal of BP <130/80 - Recommend home or pharmacy blood pressure monitoring - CONSULT TO CARDIOLOGY Return in about 1 year (around 10/24/2021) for Dr. Monreal or APRN. Suzy Burris APRN.CNP documented in this encounter Advance Directives No Advanced Directives Records FoundDocuments on File Type Date Recorded Patient Sports Intern Expl anation Advance Directive(s) 12/22/2017 1:18 PM Advance Directive(s) 12/24/2017 11:43 AM Advance Directive(s) 01/03/2019 5:52 PM Advance Directive(s) 05/19/2019 10:52 AM Advance Directive(s) 01/31/2020 6:39 PM Documents on File Type Date Recorded Patient Sports Intern Expl anation Advance Directive(s) 12/22/2017 1:18 PM Advance Directive(s) 12/24/2017 11:43 AM Advance Directive(s) 01/03/2019 5:52 PM Advance Directive(s) 05/19/2019 10:52 AM Advance Directive(s) 01/31/2020 6:39 PM Documents on File Type Date Recorded Patient Sports Intern Expl anation Advance Directive(s) 01/31/2020 6:39 PM Advance Directive(s) 05/19/2019 10:52 AM Advance Directive(s) 01/03/2019 5:52 PM Advance Directive(s) 12/24/2017 11:43 AM Advance Directive(s) 12/22/2017 1:18 PM Documents on File Type Date Recorded Patient Sports Intern Expl anation Advance Directive(s) 01/31/2020 6:39 PM Advance Directive(s) 05/19/2019 10:52 AM Advance Directive(s) 01/03/2019 5:52 PM Advance Directive(s) 12/24/2017 11:43 AM Advance Directive(s) 12/22/2017 1:18 PM Documents on File Type Date Recorded Patient Sports Intern Expl anation Advance Directive(s) 07/21/2021 10:16 AM Advance Directive(s) 01/31/2020 6:39 PM Advance Directive(s) 05/19/2019 10:52 AM Advance Directive(s) 01/03/2019 5:52 PM Advance Directive(s) 12/24/2017 11:43 AM Advance Directive(s) 12/22/2017 1:18 PM Documents on File Type Date Recorded Patient Sports Intern Expl anation Advance Directive(s) 07/21/2021 10:16 AM Advance Directive(s) 01/31/2020 6:39 PM Advance Directive(s) 05/19/2019 10:52 AM Advance Directive(s) 01/03/2019 5:52 PM Advance Directive(s) 12/24/2017 11:43 AM Advance Directive(s) 12/22/2017 1:18 PM Advance Directive Response Recorded Date/ Time Do you have a Healthcare Power of First Assistant Manager? No April 26, 2025 3:50pm Advance Directive Response Recorded Date/ Time Do you have a Healthcare Power of First Assistant Manager? No April 26, 2025 3:50pm Do you have a Healthcare Power of First Assistant Manager? No May 23, 2025 11:01am Assessments Diagnosis Ischemic cardiomyopathy Other specified forms of chronic ischemic heart disease Diagnosis Tendinitis of right rotator cuff- Primary Disorders of bursae and tendons in shoulder region, unspecified Diagnosis Wellness examination- Primary Migraine with aura, not intractable, without status migrainosus Benign paroxysmal positional vertigo, unspecified laterality Heme positive stool Nonspecific abnormal finding in stool contents Screening for colon cancer Special screening for malignant neoplasms, colon Screening for lipid disorders Screening for diabetes mellitus Thumb pain, right Chronic right shoulder pain Pain in joint, shoulder region Diagnosis Dilated cardiomyopathy (HCC) Other primary cardiomyopathies Diagnosis Cardiac resynchronization therapy defibrillator (ROAD 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- Primary Chronic systolic CHF (congestive heart failure) (HCC) Chronic systolic heart failure Cardiomyopathy, nonischemic (HCC) Other primary cardiomyopathies LBBB (left bundle branch block) Other left bundle branch block Primary hypertension Unspecified essential hypertension Instructions * Patient Instructions* Jaleel Vasquez - 09/02/2020 11:32 AM EST Patient was discussed treatment options regarding right shoulder clinical rotator cuff tendinitis. Initial recommendations include physical therapy for right shoulder rotator cuff stretching and strengthening exercises, including local modalities. Patient was recommended relative rest with instruction to avoid repetitive overhead reaching, especially in shoulder abduction, and avoid pushing, pulling or lifting greater than 10 pounds right shoulder. Tylenol and/or Aleve oral anti-inflammatory medicine encouraged if medically allowed with discussion of usual precautions. Recommend follow-up in 6 weeks. If right shoulder symptoms persist, cortisone subacromial injection may be further considered. documented in this encounter* Patient Instructions* Suzy Burris (Pound Attendant.Good H[employer] Vendor) - 10/24/2020 8:15 AM EST Cardiomyopathy What is cardiomyopathy? Cardiomyopathy is a disease of the heart muscle. The heart muscle gets bigger, thick, or stiff. This can weaken the heart and make it hard for the heart to pump blood. There are 3 main types of cardiomyopathy: Dilated cardiomyopathy. As the heart muscle weakens, it is less able to pump enough blood to the body. Because the heart can't pump as well, the main pumping chamber of the heart (the left ventricle)fills with blood and cannot empty. The extra blood in the left ventricle causes the heart muscle tostretch, just like a balloon expands when you put air into it. The heart slowly gets bigger over sev eral weeks to months. Hypertrophic cardiomyopathy (HCM). The heart muscle cells get bigger. This makes the reece of the heart muscle thick. Thick reece are usually very stiff, making it hard for the heart to pump well. Restrictive cardiomyopathy. The heart muscle gets very stiff. The stiffness makes it hard for the heart to fill with blood and pump properly. What is the cause? The heart muscle may be weakened by many things, such as: Heart attacks Coronary artery disease (CAD) Untreated high blood pressure Chronic illness, such as diabetes or thyroid disease A genetic problem inherited from your parents Cocaine or heavy alcohol use Infection, especially by a virus Some cancer treatments Often what causes the heart to get bigger and weaker is not known. What are the symptoms? Cardiomyopathy may not cause symptoms. If it does, some possible symptoms are: Chest pain, especially after physical activity or heavy meals Shortness of breath Swelling of the legs or ankles Tiredness Dizziness Fainting during physical activity How is it diagnosed? Your healthcare provider will ask about your symptoms and medical history and examine you. Tests may include: Chest X-ray An ECG (also called an EKG or electrocardiogram), which measures and records your heartbeat. You may have an ECG while you are resting or while you exercise on a treadmill. You may also be asked to wear a small portable ECG monitor for a few days or sometimes a couple weeks. An echocardiogram, which uses sound waves (ultrasound) to see how well your heart is pumping and can show areas of heart muscle that are thick Angiogram, which is a series of X-rays taken after your healthcare provider injects a special dye into your blood vessels to show the reece of the arteries and any blockage Your provider may suggest testing other members of your family if he or she thinks that you may have an inherited form of cardiomyopathy. How is it treated? Treatment depends on the type of cardiomyopathy you have and what caused it. Medicines that may be prescribed include: Beta monik or calcium channel monik to relax the heart muscle. This helps lower blood pressure and heart rate so that the heart does not have to work as hard. Vasodilator to open up the blood vessels and let more blood flow through. This helps lower blood pressure so the heart does not have to work as hard. MARTHA inhibitor to relax blood vessels and lower blood pressure. This helps the heart to pump more blood out to the body. Diuretic (water pill) to help your body get rid of the extra fluid that can build up when the heartdoes not pump well. Blood thinner (anticoagulant) to help prevent blood clots that could block the arteries and cause astroke. Procedures that may be used to treat cardiomyopathy include: Removal of a piece of heart muscle (a procedure called myectomy) with a heart catheter or surgery Insertion of an artificial pacemaker or an implantable cardioverter- defibrillator (ICD) to treat abnormal heart rhythms. How can I take care of myself? Take your medicines regularly, carefully following your healthcare provider s instructions. Weigh yourself regularly and let your provider know if you suddenly gain weight. Avoid salty foods and eat a healthy diet with lots of fruits and vegetables. Ask your provider: ?How and when you will hear your test results ?How long it will take to recover ?How much fluid you should drink every day. ?Ask your provider how much you can exercise and try to remain active. Find out what activities youshould avoid. For some types of cardiomyopathy certain sports or activities are not recommended. ?How to take care of yourself at home ?What symptoms or problems you should watch for and what to do if you have them Make sure you know when you should come back for a checkup. How can I help prevent cardiomyopathy? If you have high cholesterol or hypertension, take the medicines that have been prescribed for you to treat these conditions. Have a healthy lifestyle with regular exercise and a healthy diet (high in fruits and vegetables). If you smoke, try to quit. Tell your healthcare provider if you need help quitting. Follow any other recommendations from your healthcare provider. Copyright 2014 [employer] and/or one of its subsidiaries. All rights reserved. documented in this encounter Reason for Referral Status Reason Specialty Diagnoses / Procedures Referred By Contact Referred To Contact Ref Not Required PCP Requested Referral Orthopedics Diagnoses Chronic right shoulder pain Procedures CONSULT TO ORTHOPAEDICS [address] [place] [address] Yared Casey [address] [facility] [address] [place] [address] Status Reason Specialty Diagnoses / Procedures Referred By Contact Referred To Contact Authorized PCP Requested Referral Orthopedics Diagnoses Thumb pain, right Procedures CONSULT TO ORTHOPAEDICS NEW PATIENT VISIT LEVEL [address] [place] [address] Elvin Cobos Jr. [address] [place] [address] Status Reason Specialty Diagnoses / Procedures Referred By Contact Referred To Contact Authorized PCP Requested Referral General Surgery Diagnoses Heme positive stool Screening for colon cancer Procedures CONSULT TO GENERAL SURGERY NEW PATIENT VISIT LEVEL 5 Kenn [address]a [address] [place] [address] Elvin Reynoso [address] [place] [address] [address] [place] [address] Status Reason Specialty Diagnoses / Procedures Re ferred By Contact Referred To Contact Authorized PCP Requested Referral Cardiology Diagnoses Cardiac resynchronization therapy defibrillator (ROAD 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 Chronic systolic CHF (congestive heart failure) (HCC) Cardiomyopathy, nonischemic (HCC) Primary hypertension Procedures CONSULT TO CARDIOLOGY NEW PATIENT VISIT LEVEL 5 Suzy Burris (Pound Attendant.Good Humor Vendor) [address] [place] [address] Specialty Diagnoses / Procedures Referred By Contac t Referred To Contact Urology Diagnoses Prostate troubles Procedures CONSULT TO UROLOGY OFFICE/OUTPATIENT [facility] 60 MINUTES Elvin Reynoso MD [address] [facility] [address] [place] [address] Sam Mata MD [address] [place] [address] Referral ID Status Reason Start Date Expiration Date Visits Requested Visits Authorized [id number] Authorized PCP Requested Referral 12/01/2023 11/30/2024 1 1 Summary Purpose Family History No Family History Records FoundNo Family History Records FoundNo Family History Records FoundNo Family History Records FoundNo Family History Records Found Chief Complaint and Reason for Visit Chief Complaint Admit Date GENERAL ILLNESS April 26, 2025 2:40 pm Chief Complaint Admit Date GENERAL ILLNESS April 26, 2025 2:40 pm H PYLORI TEST April 30, 2025 8:21 am Reason for Visit Admit Date Abdominal pain April 30, 2025 8:21 am History of Helicobacter pylori infection April 30, 2025 8:21am Additional Source Comments Source Comments (unrecognize d section and content) In the event this informatio n is protected by the Federal Confidentiality of Alcohol and Drug Abuse Patient Records regulations: The Federal rules restrict any use of the information to criminally investigate or prosecute any alcohol or drug abuse patient.[facility] Center[facility] the event this information is protected by the Federal Confidentiality of Alcohol and Drug Abuse Patient Records regulations: The Federal rules restrict any use of the information to criminally investigate or prosecute any alcohol or drug abuse patient.[facility] CenterIn the event this information is protected by the Federal Confidentiality of Alcohol and Drug Abuse Patient Records regulations: The Federal rules restrict any use of the information to criminally investigate or prosecute any alcohol or drug abuse patient.[facility] CenterIn the event this information is protected by the Federal Confidentiality of Alcohol and Drug Abuse Patient Records regulations: The Federal rules restrict any use of the information to criminally investigate or prosecute any alcohol or drug abuse patient.[facility] CenterIn the event this information is protected by the Federal Confidentiality of Alcohol and Drug Abuse Patient Records regulations: The Federal rules restrict any use of the information to criminally investigate or prosecute any alcohol or drug abuse patient.[facility] CenterIn the event this information is protected by the Federal Confidentiality of Alcohol and Drug Abuse Patient Records regulations: The Federal rules restrict any use of the information to criminally investigate or prosecute any alcohol or drug abuse patient.[facility] CenterIn the event this information is protected by the Federal Confidentiality of Alcohol and Drug Abuse Patient Records regulations: The Federal rules restrict any use of the information to criminally investigate or prosecute any alcohol or drug abuse patient.[facility] CenterIn the event this information is protected by the Federal Confidentiality of Alcohol and Drug Abuse Patient Records regulations: The Federal rules restrict any use of the information to criminally investigate or prosecute any alcohol or drug abuse patient.[facility] CenterIn the event this information is protected by the Federal Confidentiality of Alcohol and Drug Abuse Patient Records regulations: The Federal rules restrict any use of the information to criminally investigate or prosecute any alcohol or drug abuse patient.[facility] CenterIn the event this information is protected by the Federal Confidentiality of Alcohol and Drug Abuse Patient Records regulations: The Federal rules restrict any use of the information to criminally investigate or prosecute any alcohol or drug abuse patient.[facility] CenterIn the event this information is protected by the Federal Confidentiality of Alcohol and Drug Abuse Patient Records regulations: The Federal rules restrict any use of the information to criminally investigate or prosecute any alcohol or drug abuse patient.[facility] CenterIn the event this information is protected by the Federal Confidentiality of Alcohol and Drug Abuse Patient Records regulations: The Federal rules restrict any use of the information to criminally investigate or prosecute any alcohol or drug abuse patient.[facility] CenterIn the event this information is protected by the Federal Confidentiality of Alcohol and Drug Abuse Patient Records regulations: The Federal rules restrict any use of the information to criminally investigate or prosecute any alcohol or drug abuse patient.[facility] CenterIn the event this information is protected by the Federal Confidentiality of Alcohol and Drug Abuse Patient Records regulations: The Federal rules restrict any use of the information to criminally investigate or prosecute any alcohol or drug abuse patient.[facility] CenterIn the event this information is protected by the Federal Confidentiality of Alcohol and Drug Abuse Patient Records regulations: The Federal rules restrict any use of the information to criminally investigate or prosecute any alcohol or drug abuse patient.[facility] CenterIn the event this information is protected by the Federal Confidentiality of Alcohol and Drug Abuse Patient Records regulations: The Federal rules restrict any use of the information to criminally investigate or prosecute any alcohol or drug abuse patient.[facility] CenterIn the event this information is protected by the Federal Confidentiality of Alcohol and Drug Abuse Patient Records regulations: The Federal rules restrict any use of the information to criminally investigate or prosecute any alcohol or drug abuse patient.[facility] CenterIn the event this information is protected by the Federal Confidentiality of Alcohol and Drug Abuse Patient Records regulations: The Federal rules restrict any use of the information to criminally investigate or prosecute any alcohol or drug abuse patient.[facility] CenterIn the event this information is protected by the Federal Confidentiality of Alcohol and Drug Abuse Patient Records regulations: The Federal rules restrict any use of the information to criminally investigate or prosecute any alcohol or drug abuse patient.[facility] CenterIn the event this information is protected by the Federal Confidentiality of Alcohol and Drug Abuse Patient Records regulations: The Federal rules restrict any use of the information to criminally investigate or prosecute any alcohol or drug abuse patient.[facility] CenterIn the event this information is protected by the Federal Confidentiality of Alcohol and Drug Abuse Patient Records regulations: The Federal rules restrict any use of the information to criminally investigate or prosecute any alcohol or drug abuse patient.[facility] CenterIn the event this information is protected by the Federal Confidentiality of Alcohol and Drug Abuse Patient Records regulations: The Federal rules restrict any use of the information to criminally investigate or prosecute any alcohol or drug abuse patient.[facility] CenterIn the event this information is protected by the Federal Confidentiality of Alcohol and Drug Abuse Patient Records regulations: The Federal rules restrict any use of the information to criminally investigate or prosecute any alcohol or drug abuse patient.[facility] CenterIn the event this information is protected by the Federal Confidentiality of Alcohol and Drug Abuse Patient Records regulations: The Federal rules restrict any use of the information to criminally investigate or prosecute any alcohol or drug abuse patient.[facility] CenterIn the event this information is protected by the Federal Confidentiality of Alcohol and Drug Abuse Patient Records regulations: The Federal rules restrict any use of the information to criminally investigate or prosecute any alcohol or drug abuse patient.[facility] CenterIn the event this information is protected by the Federal Confidentiality of Alcohol and Drug Abuse Patient Records regulations: The Federal rules restrict any use of the information to criminally investigate or prosecute any alcohol or drug abuse patient.[facility] CenterIn the event this information is protected by the Federal Confidentiality of Alcohol and Drug Abuse Patient Records regulations: The Federal rules restrict any use of the information to criminally investigate or prosecute any alcohol or drug abuse patient.[facility] CenterIn the event this information is protected by the Federal Confidentiality of Alcohol and Drug Abuse Patient Records regulations: The Federal rules restrict any use of the information to criminally investigate or prosecute any alcohol or drug abuse patient.[facility] CenterIn the event this information is protected by the Federal Confidentiality of Alcohol and Drug Abuse Patient Records regulations: The Federal rules restrict any use of the information to criminally investigate or prosecute any alcohol or drug abuse patient.[facility] CenterIn the event this information is protected by the Federal Confidentiality of Alcohol and Drug Abuse Patient Records regulations: The Federal rules restrict any use of the information to criminally investigate or prosecute any alcohol or drug abuse patient.[facility] CenterIn the event this information is protected by the Federal Confidentiality of Alcohol and Drug Abuse Patient Records regulations: The Federal rules restrict any use of the information to criminally investigate or prosecute any alcohol or drug abuse patient.[facility] CenterIn the event this information is protected by the Federal Confidentiality of Alcohol and Drug Abuse Patient Records regulations: The Federal rules restrict any use of the information to criminally investigate or prosecute any alcohol or drug abuse patient.[facility] CenterIn the event this information is protected by the Federal Confidentiality of Alcohol and Drug Abuse Patient Records regulations: The Federal rules restrict any use of the information to criminally investigate or prosecute any alcohol or drug abuse patient.[facility] CenterIn the event this information is protected by the Federal Confidentiality of Alcohol and Drug Abuse Patient Records regulations: The Federal rules restrict any use of the information to criminally investigate or prosecute any alcohol or drug abuse patient.[facility] CenterIn the event this information is protected by the Federal Confidentiality of Alcohol and Drug Abuse Patient Records regulations: The Federal rules restrict any use of the information to criminally investigate or prosecute any alcohol or drug abuse patient.[facility] CenterIn the event this information is protected by the Federal Confidentiality of Alcohol and Drug Abuse Patient Records regulations: The Federal rules restrict any use of the information to criminally investigate or prosecute any alcohol or drug abuse patient.[facility] CenterIn the event this information is protected by the Federal Confidentiality of Alcohol and Drug Abuse Patient Records regulations: The Federal rules restrict any use of the information to criminally investigate or prosecute any alcohol or drug abuse patient.[facility] CenterIn the event this information is protected by the Federal Confidentiality of Alcohol and Drug Abuse Patient Records regulations: The Federal rules restrict any use of the information to criminally investigate or prosecute any alcohol or drug abuse patient.[facility] CenterIn the event this information is protected by the Federal Confidentiality of Alcohol and Drug Abuse Patient Records regulations: The Federal rules restrict any use of the information to criminally investigate or prosecute any alcohol or drug abuse patient.[facility] CenterIn the event this information is protected by the Federal Confidentiality of Alcohol and Drug Abuse Patient Records regulations: The Federal rules restrict any use of the information to criminally investigate or prosecute any alcohol or drug abuse patient.[facility] CenterIn the event this information is protected by the Federal Confidentiality of Alcohol and Drug Abuse Patient Records regulations: The Federal rules restrict any use of the information to criminally investigate or prosecute any alcohol or drug abuse patient.[facility] CenterIn the event this information is protected by the Federal Confidentiality of Alcohol and Drug Abuse Patient Records regulations: The Federal rules restrict any use of the information to criminally investigate or prosecute any alcohol or drug abuse patient.[facility] CenterIn the event this information is protected by the Federal Confidentiality of Alcohol and Drug Abuse Patient Records regulations: The Federal rules restrict any use of the information to criminally investigate or prosecute any alcohol or drug abuse patient.[facility] CenterIn the event this information is protected by the Federal Confidentiality of Alcohol and Drug Abuse Patient Records regulations: The Federal rules restrict any use of the information to criminally investigate or prosecute any alcohol or drug abuse patient.[facility] CenterIn the event this information is protected by the Federal Confidentiality of Alcohol and Drug Abuse Patient Records regulations: The Federal rules restrict any use of the information to criminally investigate or prosecute any alcohol or drug abuse patient.[facility] the event this information is protected by the Federal Confidentiality of Alcohol and Drug Abuse Patient Records regulations: The Federal rules restrict any use of the information to criminally investigate or prosecute any alcohol or drug abuse patient.[facility] CenterIn the event this information is protected by the Federal Confidentiality of Alcohol and Drug Abuse Patient Records regulations: The Federal rules restrict any use of the information to criminally investigate or prosecute any alcohol or drug abuse patient.[facility] CenterIn the event this information is protected by the Federal Confidentiality of Alcohol and Drug Abuse Patient Records regulations: The Federal rules restrict any use of the information to criminally investigate or prosecute any alcohol or drug abuse patient.[facility]In the event this information is protected by the Federal Confidentiality of Alcohol and Drug Abuse Patient Records regulations: The Federal rules restrict any use of the information to criminally investigate or prosecute any alcohol or drug abuse patient.[facility] CenterIn the event this information is protected by the Federal Confidentiality of Alcohol and Drug Abuse Patient Records regulations: The Federal rules restrict any use of the information to criminally investigate or prosecute any alcohol or drug abuse patient.[facility] CenterIn the event this information is protected by the Federal Confidentiality of Alcohol and Drug Abuse Patient Records regulations: The Federal rules restrict any use of the information to criminally investigate or prosecute any alcohol or drug abuse patient.[facility] CenterIn the event this information is protected by the Federal Confidentiality of Alcohol and Drug Abuse Patient Records regulations: The Federal rules restrict any use of the information to criminally investigate or prosecute any alcohol or drug abuse patient.[facility] CenterIn the event this information is protected by the Federal Confidentiality of Alcohol and Drug Abuse Patient Records regulations: The Federal rules restrict any use of the information to criminally investigate or prosecute any alcohol or drug abuse patient.[facility] CenterIn the event this information is protected by the Federal Confidentiality of Alcohol and Drug Abuse Patient Records regulations: The Federal rules restrict any use of the information to criminally investigate or prosecute any alcohol or drug abuse patient.[facility] CenterIn the event this information is protected by the Federal Confidentiality of Alcohol and Drug Abuse Patient Records regulations: The Federal rules restrict any use of the information to criminally investigate or prosecute any alcohol or drug abuse patient.[facility] CenterIn the event this information is protected by the Federal Confidentiality of Alcohol and Drug Abuse Patient Records regulations: The Federal rules restrict any use of the information to criminally investigate or prosecute any alcohol or drug abuse patient.[facility] CenterIn the event this information is protected by the Federal Confidentiality of Alcohol and Drug Abuse Patient Records regulations: The Federal rules restrict any use of the information to criminally investigate or prosecute any alcohol or drug abuse patient.[facility] CenterIn the event this information is protected by the Federal Confidentiality of Alcohol and Drug Abuse Patient Records regulations: The Federal rules restrict any use of the information to criminally investigate or prosecute any alcohol or drug abuse patient.[facility] CenterIn the event this information is protected by the Federal Confidentiality of Alcohol and Drug Abuse Patient Records regulations: The Federal rules restrict any use of the information to criminally investigate or prosecute any alcohol or drug abuse patient.[facility] CenterIn the event this information is protected by the Federal Confidentiality of Alcohol and Drug Abuse Patient Records regulations: The Federal rules restrict any use of the information to criminally investigate or prosecute any alcohol or drug abuse patient.[facility] CenterIn the event this information is protected by the Federal Confidentiality of Alcohol and Drug Abuse Patient Records regulations: The Federal rules restrict any use of the information to criminally investigate or prosecute any alcohol or drug abuse patient.[facility] CenterIn the event this information is protected by the Federal Confidentiality of Alcohol and Drug Abuse Patient Records regulations: The Federal rules restrict any use of the information to criminally investigate or prosecute any alcohol or drug abuse patient.[facility] CenterIn the event this information is protected by the Federal Confidentiality of Alcohol and Drug Abuse Patient Records regulations: The Federal rules restrict any use of the information to criminally investigate or prosecute any alcohol or drug abuse patient.[facility] CenterIn the event this information is protected by the Federal Confidentiality of Alcohol and Drug Abuse Patient Records regulations: The Federal rules restrict any use of the information to criminally investigate or prosecute any alcohol or drug abuse patient.[facility] CenterIn the event this information is protected by the Federal Confidentiality of Alcohol and Drug Abuse Patient Records regulations: The Federal rules restrict any use of the information to criminally investigate or prosecute any alcohol or drug abuse patient.[facility] CenterIn the event this information is protected by the Federal Confidentiality of Alcohol and Drug Abuse Patient Records regulations: The Federal rules restrict any use of the information to criminally investigate or prosecute any alcohol or drug abuse patient.[facility] CenterIn the event this information is protected by the Federal Confidentiality of Alcohol and Drug Abuse Patient Records regulations: The Federal rules restrict any use of the information to criminally investigate or prosecute any alcohol or drug abuse patient.[facility] CenterIn the event this information is protected by the Federal Confidentiality of Alcohol and Drug Abuse Patient Records regulations: The Federal rules restrict any use of the information to criminally investigate or prosecute any alcohol or drug abuse patient.[facility] CenterIn the event this information is protected by the Federal Confidentiality of Alcohol and Drug Abuse Patient Records regulations: The Federal rules restrict any use of the information to criminally investigate or prosecute any alcohol or drug abuse patient.[facility] CenterIn the event this information is protected by the Federal Confidentiality of Alcohol and Drug Abuse Patient Records regulations: The Federal rules restrict any use of the information to criminally investigate or prosecute any alcohol or drug abuse patient.[facility] CenterIn the event this information is protected by the Federal Confidentiality of Alcohol and Drug Abuse Patient Records regulations: The Federal rules restrict any use of the information to criminally investigate or prosecute any alcohol or drug abuse patient.[facility] CenterIn the event this information is protected by the Federal Confidentiality of Alcohol and Drug Abuse Patient Records regulations: The Federal rules restrict any use of the information to criminally investigate or prosecute any alcohol or drug abuse patient.[facility] CenterIn the event this information is protected by the Federal Confidentiality of Alcohol and Drug Abuse Patient Records regulations: The Federal rules restrict any use of the information to criminally investigate or prosecute any alcohol or drug abuse patient.[facility] CenterIn the event this information is protected by the Federal Confidentiality of Alcohol and Drug Abuse Patient Records regulations: The Federal rules restrict any use of the information to criminally investigate or prosecute any alcohol or drug abuse patient.[facility] CenterIn the event this information is protected by the Federal Confidentiality of Alcohol and Drug Abuse Patient Records regulations: The Federal rules restrict any use of the information to criminally investigate or prosecute any alcohol or drug abuse patient.[facility] CenterIn the event this information is protected by the Federal Confidentiality of Alcohol and Drug Abuse Patient Records regulations: The Federal rules restrict any use of the information to criminally investigate or prosecute any alcohol or drug abuse patient.[facility] CenterIn the event this information is protected by the Federal Confidentiality of Alcohol and Drug Abuse Patient Records regulations: The Federal rules restrict any use of the information to criminally investigate or prosecute any alcohol or drug abuse patient.[facility] CenterIn the event this information is protected by the Federal Confidentiality of Alcohol and Drug Abuse Patient Records regulations: The Federal rules restrict any use of the information to criminally investigate or prosecute any alcohol or drug abuse patient.[facility] CenterIn the event this information is protected by the Federal Confidentiality of Alcohol and Drug Abuse Patient Records regulations: The Federal rules restrict any use of the information to criminally investigate or prosecute any alcohol or drug abuse patient.[facility] CenterIn the event this information is protected by the Federal Confidentiality of Alcohol and Drug Abuse Patient Records regulations: The Federal rules restrict any use of the information to criminally investigate or prosecute any alcohol or drug abuse patient.[facility] CenterIn the event this information is protected by the Federal Confidentiality of Alcohol and Drug Abuse Patient Records regulations: The Federal rules restrict any use of the information to criminally investigate or prosecute any alcohol or drug abuse patient.[facility] CenterIn the event this information is protected by the Federal Confidentiality of Alcohol and Drug Abuse Patient Records regulations: The Federal rules restrict any use of the information to criminally investigate or prosecute any alcohol or drug abuse patient.[facility] CenterIn the event this information is protected by the Federal Confidentiality of Alcohol and Drug Abuse Patient Records regulations: The Federal rules restrict any use of the information to criminally investigate or prosecute any alcohol or drug abuse patient.[facility] CenterIn the event this information is protected by the Federal Confidentiality of Alcohol and Drug Abuse Patient Records regulations: The Federal rules restrict any use of the information to criminally investigate or prosecute any alcohol or drug abuse patient.[facility] CenterIn the event this information is protected by the Federal Confidentiality of Alcohol and Drug Abuse Patient Records regulations: The Federal rules restrict any use of the information to criminally investigate or prosecute any alcohol or drug abuse patient.[facility] CenterIn the event this information is protected by the Federal Confidentiality of Alcohol and Drug Abuse Patient Records regulations: The Federal rules restrict any use of the information to criminally investigate or prosecute any alcohol or drug abuse patient.[facility] CenterIn the event this information is protected by the Federal Confidentiality of Alcohol and Drug Abuse Patient Records regulations: The Federal rules restrict any use of the information to criminally investigate or prosecute any alcohol or drug abuse patient.[facility] CenterIn the event this information is protected by the Federal Confidentiality of Alcohol and Drug Abuse Patient Records regulations: The Federal rules restrict any use of the information to criminally investigate or prosecute any alcohol or drug abuse patient.[facility] CenterIn the event this information is protected by the Federal Confidentiality of Alcohol and Drug Abuse Patient Records regulations: The Federal rules restrict any use of the information to criminally investigate or prosecute any alcohol or drug abuse patient.[facility] CenterIn the event this information is protected by the Federal Confidentiality of Alcohol and Drug Abuse Patient Records regulations: The Federal rules restrict any use of the information to criminally investigate or prosecute any alcohol or drug abuse patient.[facility] CenterIn the event this information is protected by the Federal Confidentiality of Alcohol and Drug Abuse Patient Records regulations: The Federal rules restrict any use of the information to criminally investigate or prosecute any alcohol or drug abuse patient.[facility] CenterIn the event this information is protected by the Federal Confidentiality of Alcohol and Drug Abuse Patient Records regulations: The Federal rules restrict any use of the information to criminally investigate or prosecute any alcohol or drug abuse patient.[facility] CenterIn the event this information is protected by the Federal Confidentiality of Alcohol and Drug Abuse Patient Records regulations: The Federal rules restrict any use of the information to criminally investigate or prosecute any alcohol or drug abuse patient.[facility] CenterIn the event this information is protected by the Federal Confidentiality of Alcohol and Drug Abuse Patient Records regulations: The Federal rules restrict any use of the information to criminally investigate or prosecute any alcohol or drug abuse patient.[facility] CenterIn the event this information is protected by the Federal Confidentiality of Alcohol and Drug Abuse Patient Records regulations: The Federal rules restrict any use of the information to criminally investigate or prosecute any alcohol or drug abuse patient.[facility] Reason for Visit (unrecogniz ed section and content) Reason Onset Date Comments Needs PCP APPT 07/01/2020 [facility]- [facility] Reason Comments Referral Request Ortho Reason Comments ICD Reason Comments New pain in rt shoulder w/raising arm or sleeping 07/27 New Reason Comments Future Appointment ATTEMPT TO SCHEDULE - NO ANSWER - LEFT MESSAGE TO CALL OFFICE TO SCHEDULE RE:PPG REFERRAL PORTAL Reason Comments Yearly Exam Reason Comments Remote ICD Follow Up Reason Comments CARD Follow Up Annual ICD follow up Reason Onset Date Comments Refill Request 04/13/2021 Reason Comments New Patient Evaluation chronic systolic heart failure, cardiomyopathy and hypertension Reason Comments Orders Reason Comments Results Reason Comments Patient Update Reason Comments Established Patient ABDOMINAL PAIN Reason Comments Remote Pacemaker Follow Up Reason Comments Appointment Cancelled PT'S CALLED T O CANCEL HIS EGD/COLONOSCOPY SCHEDULED FOR THIS 04/15/22 Reason Comments ICD Remote Reason Onset Date Comments Refill Request 11/10/2022 Reason Comments Cardiology Follow Up CAD Reason Comments Established Patient Abdominal Pain, Rect al bleeding Reason Comments New Patient Colonoscopy showed e nlarged prostate. Has some difficulty with urination sometimes, has a weak stream recently. Post Void Residual 0mL Reason Comments Established Patient Follow up Colonoscop y Reason Comments Benign Prostatic Hypertrophy Pt here for 6 week f/u. Reason Comments Refill Request Reason Comments CARD Follow Up Annual Yearly check up fo r cardiomyopathy Reason Comments CARD New Patient Consult Bacteriology Research Assistant ref for gen change Reason Comments Preparations For Procedures Reason Comments Wound Check Reason Comments CARD Follow Up 3 Month palpitations Reason Onset Date Comments Population Health Navigation Outreach 12/07/2024 [employer] Unknown PCP Reason Comments Appointment Results Reason Comments Cardiology Follow Up - Generic Discuss E cho Reason Comments Established Patient Trigger Point Injection Specialty Diagnoses / Procedures Referred By Contac t Referred To Contact Pain Management / PAIN MANAGEMENT Diagnoses Myalgia, other site TPI Procedures TRIGGER POINT INJECTION MULTI 3+ MUSCLE GRP TRIGGER POINT INJECTION Dapoz, Madelyn, TECHNOLOGY INTERN.TECHNICAL SERVICES REPRESENTATIVE [address] [place] [address] Phone: tel: fax: Madelyn Dc, TECHNOLOGY INTERN.TECHNICAL SERVICES REPRESENTATIVE [address] [place] [address] Phone: tel: fax: Referral ID Status Reason Start Date Expiration Date Visits Re quested Visits Authorized [id number] Closed 10/18/2024 10/17/2025 1 1 Reason Comments Orders ak [facility] appt contact-, MC, letter Reason Onset Date Comments Refill Request 01/18/2025 Reason Comments Established Patient Follow Up Reason Comments CHF Reason Comments Patient Question Reason Onset Date Comments Results 03/05/2025 Reason Comments CHF Follow Up Reason Onset Date Comments Refill Request 04/24/2025 Reason Comments Med Change Request Reason Comments Patient Update [facility] Telephone Encounter - Emmanuel (Tez), Yari - 08/26/2020 9:55 AM ESTTelephone Encounter - Yari Benitez Cma - 08/26/2020 9:56 AM ESTTelephone Encounter - Nicole Carpio - 09/06/2020 10:51 AM EST Miscellaneous Notes (unrecog nized section and content) INSURANCE TYPE: [employer] IN NETWORK: (IN PPG NETWORK) APPOINTMENT FOR: Ortho APPOINTMENT DATE: PENDING/SUBMITTED ON LINE PPG PORTAL PPG CONFIRMATION NUMBER: [id number] NOTES: PLUGGED IN BY Christa documented in this encounter INSURANCE TYPE: Medicare IN NETWORK: (IN PPG NETWORK) APPOINTMENT FOR: Ortho APPOINTMENT DATE: PENDING/SUBMITTED ON LINE PPG PORTAL PPG CONFIRMATION NUMBER: [id number] NOTES: PLUGGED IN BY Christa documented in this encounter [id number] [facility]-REF 08/26/20 09:51 Vincent Madden routed to [facility] by OLEG 08/26/20 09:57 [id number] 08/26/20 13:31 11/20/20 NO ANSWER 09/04/[address] Ana Luisa melendrez not on tool for provider goes to office -jw Comment documented in this encounter Pat Monreal MD - 12/10/2020 1:34 PM EST Procedure Notes (unrecognize d section and content) Associated Order(s): CARDIAC DATA AND REPORT ICD remote interrogation. 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 No VT/VF events and no mode switch episodes since last check. 1 NST event shows brief burst of PAT. Sensing and impedance values stable. EGMs w/o noise. Estimated Battery longevity is 2.4 years. Charge times stable. Abena Martinez RN NOTE TO PROVIDERS: CARD Flowsheets contain detailed device programming and testing data. Paceart/Interrogation PDF can be found under CARDIAC DATA AND REPORT, Scanned Documents section. Reviewed and agree with findings. documented in this encounter (unrecognized sect ion and content) No Status Records FoundNo Status Records FoundNo Status Records FoundNo Status Records FoundNo Status Records Found INFORMATION SOURCE (unrecogn ized section and content) DATE CREATED AUTHOR 12/19/2020 [facility] DATE CREATED AUTHOR AUTHOR'S ORGANIZ ATION 09/18/2022 [facility] DATE CREATED AUTHOR AUTHOR'S ORGANIZ ATION 12/09/2024 [facility] DATE CREATED AUTHOR AUTHOR'S ORGANIZ ATION 05/05/2025 [facility] DATE CREATED AUTHOR AUTHOR'S ORGANIZ ATION 06/04/[address] [facility] Geri Roger (Gilma) - 10/24/2020 7:56 AM EST Nursing Notes (unrecognized section and content) Patient states no cardiac complaints or symptoms. Geri Roger documented in this encounter Care Teams (unrecognized sec tion and content) Edge Bonder Relationship Specialty Start Date End Date Niki Carr MD [address] [facility] [address] [place] [address] PCP - General Family Practice 08/11/21 Javier Patrick DO [address] [place], [place] [phone] PCP Resident Family Practice 08/11/21 Edge Bonder Relationship Specialty Start Date End Date Niki Carr MD [address] [place], [place] [id number] PCP - General Family Practice 08/11/21 Javier Patrick DO 1 [place], [place] [phone] PCP Resident Family Practice 08/11/21 Edge Bonder Relationship Specialty Start Date End Date Niki Carr MD [address] [place] [phone] PCP - General Family Practice 08/11/21 Javier Patrick DO 1 [place], [place] [phone] PCP Resident Family Practice 08/11/21 Edge Bonder Relationship Specialty Start Date End Date Niki Carr MD [address] [place] [address] [phone] PCP - General Family Practice 08/11/21 Javier Patrick DO 1 [place], [place] [phone] PCP Resident Family Practice 08/11/21 Edge Bonder Relationship Specialty Start Date End Date Niki Carr MD [address] [place], [place] [id number] PCP - General Family Medicine 08/11/21 Javier Patrick DO 1 [place] [address] PCP Resident Family Medicine 08/11/21 Edge Bonder Relationship Specialty Start Date End Date Niki Carr MD [address] [place], [place] [phone] PCP - General Family Medicine 08/11/21 Javier Patrick DO [address] [place], [place] [phone] PCP Resident Family Medicine 08/11/21 Edge Bonder Relationship Specialty Start Date End Date Niki Carr MD [address] [place] [address] [phone] PCP - General Family Medicine 08/11/21 Javier Patrick DO [address] [place], [place] [phone] PCP Resident Family Medicine 08/11/21 Edge Bonder Relationship Specialty Start Date End Date Niki Carr MD [address] [place] [phone] PCP - General Family Medicine 08/11/21 Javier Patrick DO [address] [place], [place] [phone] PCP Resident Family Medicine 08/11/21 Edge Bonder Relationship Specialty Start Date End Date Niki Carr MD [address] [place] [address] [phone] PCP - General Family Medicine 08/11/21 Javier Patrick DO [address] [place], [place] [phone] PCP Resident Family Medicine 08/11/21 Edge Bonder Relationship Specialty Start Date End Date Niki Carr MD [address] [place] [address] [phone] PCP - General Family Medicine 08/11/21 Javier Patrick DO 1 [place], [place] [phone] PCP Resident Family Medicine 08/11/21 Edge Bonder Relationship Specialty Start Date End Date Niki Carr MD [address] [place], [place] [phone] PCP - General Family Medicine 08/11/21 Javier Patrick DO 1 [facility], [place] [phone] PCP Resident Family Medicine 08/11/21 Edge Bonder Relationship Specialty Start Date End Date Niki Carr MD [address] [place], [place] [phone] PCP - General Family Medicine 08/11/21 Javier Patrick DO 1 [place], [place] [phone] PCP Resident Family Medicine 08/11/21 Edge Bonder Relationship Specialty Start Date End Date Niki Carr MD [address] [place] [address] PCP - General Family Medicine 08/11/21 Javier Patrick DO 1 [place], [place] [phone] PCP Resident Family Medicine 08/11/21 Edge Bonder Relationship Specialty Start Date End Date Niki Carr MD [address] [place], [place] [phone] PCP - General Family Medicine 08/11/21 Javier Patrick DO 1 [place] [address] PCP Resident Family Medicine 08/11/21 Edge Bonder Relationship Specialty Start Date End Date Niki Carr MD [address] [place] [address] PCP - General Family Medicine 08/11/21 Javier Patrick DO 1 [place] [phone] PCP Resident Family Medicine 08/11/21 Edge Bonder Relationship Specialty Start Date End Date Niki Carr MD [address] [place] [place] [address] PCP - General Family Medicine 08/11/21 Javier Patrick DO [address] [place], [place] [phone] PCP Resident Family Medicine 08/11/21 Edge Bonder Relationship Specialty Start Date End Date Niki Carr MD [address] [place] [id number] PCP - General Family Medicine 08/11/21 Javier Patrick DO [address] [place], [place] [phone] PCP Resident Family Medicine 08/11/21 Edge Bonder Relationship Specialty Start Date End Date Niki Carr MD [address] [place] [id number] PCP - General Family Medicine 08/11/21 Javier Patrick DO 1 [place] [address] PCP Resident Family Medicine 08/11/21 Edge Bonder Relationship Specialty Start Date End Date Niki Carr MD [address] [place] [id number] PCP - General Family Medicine 08/11/21 Javier Patrick DO 1 [place], [place] [phone] PCP Resident Family Medicine 08/11/21 Edge Bonder Relationship Specialty Start Date End Date Niki Carr MD [address] [place], [place] [phone] PCP - General Family Medicine 08/11/21 Javier Patrick DO 1 [place], [place] [phone] PCP Resident Family Medicine 08/11/21 Edge Bonder Relationship Specialty Start Date End Date Niki Carr MD [address] [place], [place] [phone] PCP - General Family Medicine 08/11/21 Javier Patrick DO 1 [place] [address] PCP Resident Family Medicine 08/11/21 Edge Bonder Relationship Specialty Start Date End Date Niki Carr MD [address] [place], [place] [phone] PCP - General Family Medicine 08/11/21 Javier Patrick DO 1 [place] [address] PCP Resident Family Medicine 08/11/21 Edge Bonder Relationship Specialty Start Date End Date Niki Carr MD [address] [place], [place] [id number] PCP - General Family Medicine 08/11/21 Javier Patrick DO 1 [place], [place] [phone] PCP Resident Family Medicine 08/11/21 Edge Bonder Relationship Specialty Start Date End Date Niki aCrr MD [address] [place], [place] [id number] PCP - General Family Medicine 08/11/21 Javier Patrick DO 1 [place], [place] [phone] PCP Resident Family Medicine 08/11/21 Edge Bonder Relationship Specialty Start Date End Date Niki Carr MD [address] [place], [place] [phone] PCP - General Family Medicine 08/11/21 Javier Patrick DO 1 [place], [place] [phone] PCP Resident Family Medicine 08/11/21 Edge Bonder Relationship Specialty Start Date End Date Niki Carr MD [address] [place], [place] [phone] PCP - General Family Medicine 08/11/21 Javier Patrick DO 1 [place], [place] [phone] PCP Resident Family Medicine 08/11/21 Edge Bonder Relationship Specialty Start Date End Date Niki Carr MD [address] [place], [place] [phone] PCP - General Family Medicine 08/11/21 Javier Patrick DO 1 [place] [address] PCP Resident Family Medicine 08/11/21 Edge Bonder Relationship Specialty Start Date End Date Niki Carr MD [address] [id number] PCP - General Family Medicine 08/11/21 Javier Patrick DO 1 [place] [address] PCP Resident Family Medicine 08/11/21 Team Status: Active Member Role/Relationship Status Dates No Primary Care Physician Primary Care Provider Active Team Status: Inactive Member Role/Relationship Status Dates Dr. Rigo Haile DO Referring Provider Active Start: April 26, 2025 End: April 26, 2025 Dr. Rigo Haile DO Emergency Provider Active Start: April 26, 2025 End: April 26, 2025 No Primary Care Physician Primary Care Provider Active Start: April 26, 2025 End: April 26, 2025 Team Status: Inactive Member Role/Relationship Status Dates No Primary Care Physician Primary Care Provider Active Start: April 30, 2025 End: April 30, 2025 No Primary Care Physician Referring Provider Active Start: April 30, 2025 End: April 30, 2025 Dr. Aneudy Kenyon MD Attending Provider Active Start: April 30, 2025 End: April 30, 2025 Team Status: Inactive Member Role/Relationship Status Dates Dr. Rigo Haile DO Attending Provider Active Start: April 26, 2025 End: April 26, 2025 Dr. Rigo Haile DO Referring Provider Active Start: April 26, 2025 End: April 26, 2025 Dr. Rigo Haile DO Emergency Provider Active Start: April 26, 2025 End: April 26, 2025 No Primary Care Physician Primary Care Provider Active Start: April 26, 2025 End: April 26, 2025 Team Status: Inactive Member Role/Relationship Status Dates No Primary Care Physician Primary Care Provider Active Start: May 25, 2025 End: May 25, 2025 No Primary Care Physician Referring Provider Active Start: May 25, 2025 End: May 25, 2025 Dr. Aneudy Kenyon MD Attending Provider Active Start: May 25, 2025 End: May 25, 2025 Team Status: Active Member Role/Relationship Status Dates No Primary Care Physician Primary Care Provider Active Start: May 25, 2025 No Primary Care Physician Referring Provider Active Start: May 25, 2025 Dr. Aneudy Kenyon MD Attending Provider Active Start: May 25, 2025 Dr. Aneudy Kenyon MD Other Provider Active Start: May 25, 2025 Inactive Administered Medications - up to 3 most recent administrations Administered Medications (un recognized section and content) Medication Order MAR Action Action Date Dose Rate Site lactated ringers iv infusion 5-30 mL/hr, INTRAVENOUS, CONTINUOUS, Starting on Wed11/19/23 at 0830, Until Wed11/19/23 at 1019, Preprocedure New Bag/Syringe/Bottle 11/19/2023 8:30 AM EST 30 mL/hr 30 mL/hr lactated ringers iv infusion 125 mL/hr, INTRAVENOUS, CONTINUOUS, Starting on Wed11/19/23 at 1030, Until Wed11/19/23 at 1056, Recovery or Phase I (only) Rate Verify 11/19/2023 10:18 AM EST 125 mL/hr 125 mL/hr Goals (unrecognized section and content) Goals may be documented in a n alternate sectionGoals may be documented in an alternate section FOR RECORDS PERTAINING TO PATIENTS WHO ARE OR HAVE BEEN ENROLLED IN A CHEMICAL DEPENDENCY/SUBSTANCEABUSE PROGRAM, SOME INFORMATION MAY BE OMITTED. This clinical summary was aggregated from multiple sources. Caution should be exercised in using it in the provision of clinical care. This summary normalizes information from multiple sources, and as a consequence, information in this document may materially change the coding, format and clinical context of patient data. In addition, data may be omitted in some cases. CLINICAL DECISIONS SHOULD BE BASED ON THE PRIMARY CLINICAL RECORDS. [employer] provides no warranty or guarantee of the accuracy or completeness of information in this document.
== END | disposition home or self-care (01) ==
LOC: CT 06:24
PROVIDERS: Referring Provider Surgery; Visit Provider Surgery
DX: R10.13 Epigastric pain (principal)
CPT/HCPCS: 74160; Q9967

== ENCOUNTER → 2025-06-28 | Outpatient (CLI) | payer MEDICARE, SELFPAY ==
--- NOTE | 2025-06-28 08:56 | NM_ITS ---
PROCEDURE: HEPATOBILLIARY IMG W/PHARM INT 06/28/2025 REASON FOR EXAM: EPIGASTRIC PAIN TECHNIQUE: Procedure Code: [id number] Modality: NM Procedure: HEPATOBILLIARY IMG W/PHARM INT Intravenous Choletec with planar imaging of the abdomen. 1.9 mcg Kinevac intravenously approximately 60 minutes after the radiopharmaceutical with additional anterior imaging and a region of interest drawn around the gallbladder to calculate a time-activity curve. RADIOPHARMACEUTICAL: Mebrofenin DOSE 5.5mCi COMPARISON: Prior CT scan of the abdomen and pelvis dated June 10, 2025. FINDINGS: There is good uptake of the radiopharmaceutical by the liver. Normal gallbladder visualization with the gallbladder identified by 30 minutes. Gallbladder Ejection Fraction: 27 % (Normal is >35%) NM/Hepatobilliary Img w/Pharm Int IMPRESSION: Decreased gallbladder ejection fraction. 27% ejection fraction. Reading Location: [facility]
== END | disposition home or self-care (01) ==
PROVIDERS: Referring Provider Surgery; Visit Provider Surgery
DX: R10.13 Epigastric pain (principal)
CPT/HCPCS: 78227; A9537; J2805